=== PATIENT | female | born 1965 | race Caucasian/White ===

== ENCOUNTER → 2018-06-26 08:33 | Outpatient (CLI) | payer MEDICARE, SELFPAY ==
--- NOTE | 2018-06-26 12:17 | PFTCOMP_ITS ---
COMPLETE PULMONARY FUNCTION TEST INTERPRETATION Brief HPI: Patient is a 52 year old female, currently under the care of myself, who presents to [facility] for complete pulmonary function tests secondary to diagnosis of COPD. Respiratory therapist reports good effort and reproducible results. Interpretation: Forced expiration spirometry shows a mild large airways obstructive ventilatory defect with an FEV1 of 87% predicted. There is no significant bronchodilator response by ATS criteria. Spirograms are of good quality and plateau slowly, indicating slowly emptying areas of the lungs. The respiratory flow volume loop shows decreased expiratory flow rates at all lung volumes consistent with airway obstruction. Lung volumes by body plethysmography show an elevated total lung capacity at 7.7 L, 144% predicted. All other lung volumes are increased symmetrically. Diffusion capacity by carbon monoxide is decreased at 53% predicted. The airway resistance is elevated. No previous pulmonary function tests were available for review. Impression: Irreversible mild large airways obstructive ventilatory defect with a symmetric reduction diffusing capacity resulting in air trapping. These findings are consistent with COPD.
== END ==
PROVIDERS: Family Provider Family Medicine; PCP Family Medicine; Visit Provider Internal Medicine Critical Care Medicine
DX: J44.9 Chronic obstructive pulmonary disease, unspecified (principal)
CPT/HCPCS: 94060; 94726; 94729

== ENCOUNTER → 2018-06-30 08:35 | Outpatient (CLI) | payer MEDICARE, SELFPAY ==
[2018-06-30 09:17] VITALS: PULSE 101; PULSE 102; PULSE 84; PULSE 86; PULSE 95; PULSE 96; PULSE 97; PULSE 98; O2SAT 90; O2SAT 91; O2SAT 92; O2SAT 93; O2SAT 96
--- NOTE | 2018-06-30 09:20 | CPS ---
Patient wears 2 lpm O2 at night. Performed testing on room air. The first two minutes we had some inconsistent measures with heart rates that didn't match and a flashing orange light on the pulse ox, which did cause the patient to slow down her pace for the first few minutes. Patient was wearing blue fingernail kyrgyz but once we got her hand level and still while walking; we were able to get consistent readings for the rest of the test with SpO2 always greater than 90%.
--- NOTE | 2018-06-30 12:57 | PCM.PSN.6M ---
PSN 6 Minute Walk Test - 6 Minute Walk Test 6 Minute Walk Test: 6 Minute Walk Test PSN:6-Minute Walk Test Start: 06/30/18 09:17 Freq: Status: Active Protocol: RESP.6MINW Document 06/30/18 09:17 HARPAL (Rec: 06/30/18 09:24 HARPAL [id number]) 6 Minute Walk Test Date Performed 06/30/18 Time Performed 09:05 Height 5 ft 6 in Weight: 188 lb Weight in Pounds 188.[address]: Paul Bower Assistive device used: None Pre-test Oxygen Delivery Method Room Air Pulse Ox (%) 93 Pulse Rate (60-100 beats/min) 84 Dyspnea Crystal Scale (0-10) 0 Exertion Crystal Scale (6-20) 6 1st minute Oxygen Delivery Method Room Air Pulse Ox (%) 92 Pulse Rate (60-100 beats/min) 96 2nd minute Oxygen Delivery Method Room Air Pulse Ox (%) 93 Pulse Rate (60-100 beats/min) 98 3rd minute Oxygen Delivery Method Room Air Pulse Ox (%) 92 Pulse Rate (60-100 beats/min) 95 4th minute Oxygen Delivery Method Room Air Pulse Ox (%) 91 Pulse Rate (60-100 beats/min) 97 5th minute Oxygen Delivery Method Room Air Pulse Ox (%) 90 Pulse Rate (60-100 beats/min) 101 H 6th minute Oxygen Delivery Method Room Air Pulse Ox (%) 92 Pulse Rate (60-100 beats/min) 102 H Post-test Oxygen Delivery Method Room Air Pulse Ox (%) 96 Pulse Rate (60-100 beats/min) 86 Dyspnea Crystal Scale (0-10) 0.5 Exertion Crystal Scale (6-20) 11 Full Laps Walked 14 Partial Lap, Number of Tiles Walked 15 Total Distance Walked (ft) 841 06/30/18 09:20 Cardiopulmonary Services by Dena Lovell Patient wears 2 lpm O2 at night. Performed testing on room air. The first two minutes we had some inconsistent measures with heart rates that didn't match and a flashing orange light on the pulse ox, which did cause the patient to slow down her pace for the first few minutes. Patient was wearing blue fingernail swazi but once we got her hand level and still while walking; we were able to get consistent readings for the rest of the test with SpO2 always greater than 90%. Initialized on 06/30/18 09:20 - END OF NOTE - Interpretation Interpretation: The patient ambulated 841 feet over the course of 6 minutes beginning on room air without assistive devices or breaks. Pretesting oxygen saturation was noted to be 93% on room air. With ambulation, the phil oxygen saturation was 90%. Although there was evidence of impaired walk distance, there was no significant exertional oxygen desaturation. - Recommendations Recommendations: There is no indication for the use of supplemental oxygen at this time.
== END ==
PROVIDERS: Family Provider Family Medicine; PCP Family Medicine; Visit Provider Internal Medicine Critical Care Medicine
DX: J44.9 Chronic obstructive pulmonary disease, unspecified (principal)
CPT/HCPCS: 94618

== ENCOUNTER → 2019-02-02 13:35 | Outpatient (CLI) | payer MEDICARE, SELFPAY ==
[2019-01-12 12:30] VITALS: BMI 32.8
--- NOTE | 2019-02-02 13:38 | CT_ITS ---
STUDY: CT CHEST WITHOUT CONTRAST REASON FOR EXAM: Female, 53 years old. Check for lung mass left side RADIATION DOSAGE (If Supplied By Facility): CTDIvol = ( 12.59 ) mGy, DLP = ( 388.07 ) mGycm TECHNIQUE: Transaxial imaging was performed without the administration of intravenous contrast material. Individualized dose optimization techniques were used for this CT. COMPARISON: None. FINDINGS: There is extreme hyperexpansion and severe centrilobular emphysema. Marked attenuation of the pulmonary parenchyma is seen in the upper lobes. Numerous blebs and bulla are seen throughout the upper lung dietz. Diffuse septal thickening is seen consistent with some fibrosis. An irregular platelike area of soft tissue density is seen running obliquely along the posterior aspect of the left upper lobe, most consistent with scarring and thickening of the major fissure. Nodule or mass is unlikely but since there are no prior studies, suggest follow-up in 6 months. No infiltrates. No specifically suspicious nodules. No effusions. Normal heart and pericardium. Normal mediastinum. Normal hilar regions. Normal unenhanced pulmonary arteries. Normal aorta arch and descending thoracic aorta. There are multi-level degenerative changes of the thoracic spine. There is no demonstrated abnormality of the visualized upper abdomen. CT/Chest without Contrast IMPRESSION: There is severe centrilobular emphysema. No specific evidence for acute chest disease. Probable platelike scarring across the left upper lobe. Follow-up in 6 months recommended. Electronically Signed: Bladimir Grubbs MD at 21:26 EDT , Service support ,
== END ==
PROVIDERS: Family Provider Family Medicine; PCP Family Medicine; Referring Provider Nurse Practitioner Acute Care; Visit Provider Nurse Practitioner Acute Care
DX: R91.8 Other nonspecific abnormal finding of lung field (principal)
CPT/HCPCS: 71250

== ENCOUNTER → 2019-06-18 08:43 | Outpatient (CLI) | payer MEDICARE, SELFPAY ==
[2019-01-12 12:30] VITALS: BMI 32.8
--- NOTE | 2019-06-19 09:17 | PFT ---
INTRODUCTION: The patient is a 53-year-old female that presents for pulmonary function studies secondary to a diagnosis of COPD. Respiratory therapy reports good patient effort. Bronchodilators were used during testing. INTERPRETATION: Forced expiration spirometry demonstrates the presence of a mild obstructive ventilatory defect. There was no significant response to aerosolized bronchodilators. Spirograms are of good quality and do not plateau indicating slow emptying of the lungs. Body plethysmography was performed and revealed an elevated TLC to 125% of predicted, indicative of underlying hyperinflation. Diffusing capacity by single breath CO was reduced at 41% of predicted. When compared to previous pulmonary function studies dated June 2018, there has been a 13% reduction in total lung capacity along with a 21% reduction in diffusing capacity. IMPRESSION: Irreversible mild obstructive ventilatory impairment with associated hyperinflation and significant reduction in diffusing capacity. There has been significant worsening in the patient's DLCO since 2018, as noted above.
== END ==
PROVIDERS: Family Provider Family Medicine; PCP Family Medicine; Referring Provider Nurse Practitioner Acute Care; Visit Provider Nurse Practitioner Acute Care
DX: J44.9 Chronic obstructive pulmonary disease, unspecified (principal)
CPT/HCPCS: 94060; 94726; 94729

== ENCOUNTER → 2019-06-23 08:16 | Outpatient (CLI) | payer MEDICARE, SELFPAY ==
[2019-01-12 12:30] VITALS: BMI 32.8
[2019-06-23 08:51] VITALS: PULSE 87; PULSE 94; PULSE 96; PULSE 97; PULSE 98; O2SAT 87; O2SAT 92; O2SAT 93; O2SAT 96
--- NOTE | 2019-06-23 08:53 | CPS ---
PATIENT WENT HOME AND IS TO CALL [facility] FOR HOME DELIVERY.
--- NOTE | 2019-06-23 12:56 | PCM.PSN.6M ---
PSN 6 Minute Walk Test - 6 Minute Walk Test 6 Minute Walk Test: 6 Minute Walk Test PSN:6-Minute Walk Test Start: 06/23/19 08:50 Freq: Status: Active Protocol: RESP.6MINW Document 06/23/19 08:51 SMB (Rec: 06/23/19 08:55 SMB [id number]) 6 Minute Walk Test Date Performed 06/23/19 Time Performed 08:24 Height 5 ft 6 in Weight: 88.904 kg Weight in Pounds 196.[address]: Vera Lindo Assistive device used: None Pre-test Oxygen Delivery Method Room Air Pulse Ox (%) 92 Pulse Rate (60-100 beats/min) 94 Dyspnea Crystal Scale (0-10) 0 Exertion Crystal Scale (6-20) 11 1st minute Oxygen Delivery Method Room Air Pulse Ox (%) 87 Pulse Rate (60-100 beats/min) 98 2nd minute Oxygen Flow Rate (L/min) (L/min) 2 Oxygen Delivery Method Nasal Cannula Pulse Ox (%) 93 Pulse Rate (60-100 beats/min) 96 3rd minute Oxygen Flow Rate (L/min) (L/min) 2 Oxygen Delivery Method Nasal Cannula Pulse Ox (%) 92 Pulse Rate (60-100 beats/min) 98 4th minute Oxygen Flow Rate (L/min) (L/min) 2 Oxygen Delivery Method Nasal Cannula Pulse Ox (%) 92 Pulse Rate (60-100 beats/min) 97 5th minute Oxygen Flow Rate (L/min) (L/min) 2 Oxygen Delivery Method Nasal Cannula Pulse Ox (%) 93 Pulse Rate (60-100 beats/min) 97 6th minute Oxygen Flow Rate (L/min) (L/min) 2 Oxygen Delivery Method Nasal Cannula Pulse Ox (%) 92 Pulse Rate (60-100 beats/min) 96 Post-test Oxygen Flow Rate (L/min) (L/min) 2 Oxygen Delivery Method Nasal Cannula Pulse Ox (%) 96 Pulse Rate (60-100 beats/min) 87 Dyspnea Crystal Scale (0-10) 0 Exertion Crystal Scale (6-20) 13 Full Laps Walked 15 Partial Lap, Number of Tiles Walked 18 Total Distance Walked (ft) 903 06/23/19 08:53 Cardiopulmonary Services by Caitlyn Campbell PATIENT WENT HOME AND IS TO CALL [facility] FOR HOME DELIVERY. Initialized on 06/23/19 08:53 - END OF NOTE - Interpretation Interpretation: Patient was noted to be 92% on room air. The patient did desaturate to 87% in the first minute was placed on 2 L nasal cannula. The patient then finished ambulation. No significant tachycardia was noted. In total, patient traveled 903 feet over the course of 6 minutes with no assistive devices or breaks. These findings are consistent with a respiratory limitation exercise tolerance. - Recommendations Recommendations: Patient requires no supplemental oxygen at rest, but should be using 2 L nasal cannula oxygen with any exertion.
== END ==
PROVIDERS: Family Provider Nurse Practitioner Family; PCP Nurse Practitioner Family; Referring Provider Nurse Practitioner Acute Care; Visit Provider Nurse Practitioner Acute Care
DX: J44.9 Chronic obstructive pulmonary disease, unspecified (principal)
CPT/HCPCS: 94618

== ENCOUNTER → 2019-08-11 07:16 | Outpatient (CLI) | payer MEDICARE, SELFPAY ==
[2019-06-30 13:20] VITALS: BMI 31.4
--- NOTE | 2019-08-11 07:17 | CT_ITS ---
STUDY: CT CHEST WITHOUT CONTRAST REASON FOR EXAM: Female, 54 years old. Lung nodule follow-up RADIATION DOSAGE (If Supplied By Facility): DLP = ( 463.93 ) mGycm TECHNIQUE: Transaxial imaging was performed without the administration of intravenous contrast material. Coronal and sagittal reformatted images were created. Individualized dose optimization techniques were used for this CT. COMPARISON: CT chest February 02, 2019 FINDINGS: There are no pulmonary infiltrates or pleural effusions. There is a stable right middle lobe 5 mm nodule. There is a stable left lower lobe 4 mm nodule, series 4 image 70. No significant new nodules are present. Stable areas of scarring are present. Severe emphysema is stable. Bibasilar atelectasis is noted. There is no pneumothorax. The heart and pericardium are within normal limits. There is no thoracic lymphadenopathy. There is no evidence of thoracic aortic aneurysm. Images through the upper abdomen demonstrate no significant abnormality. There are no destructive osseous lesions. CT/Chest without Contrast IMPRESSION: Stable nodules measuring up to 5 mm. Severe emphysema with areas of scarring. Electronically Signed: Naren Fraser, at 17:31 EDT Tel , Service support ,
== END ==
PROVIDERS: Family Provider Nurse Practitioner Family; PCP Nurse Practitioner Family; Referring Provider Nurse Practitioner Acute Care; Visit Provider Nurse Practitioner Acute Care
DX: R91.8 Other nonspecific abnormal finding of lung field (principal)
CPT/HCPCS: 71250

== ENCOUNTER → 2020-09-27 07:40 | Outpatient (CLI) | payer MEDICARE, MEDICAID, SELFPAY ==
[2020-09-19 08:29] VITALS: BMI 32.1
--- NOTE | 2020-09-27 07:40 | CT_ITS ---
STUDY: LOW DOSE CT LUNG CANCER SCREENING REASON FOR EXAM: Female, 55 years old. Tobacco use, current smoker 1/2 pack per day x 47 years, 197lbs. Hx COPD, hypertension. RADIATION DOSAGE (If Supplied By Facility): CTDIvol = ( 3.02 ) mGy, DLP = ( 104.20 ) mGycm TECHNIQUE: No contrast was administered. Low dose technique was utilized (average mAS-38 and kVp 120). 1.25 mm axial source images with a slice interval of 1.25-mm were reconstructed in lung windows. 2.5 mm axial source images with a slice interval of 2.5-mm were reconstructed in lung windows. 5.0 mm axial source images with a slice interval of 5.0-mm were reconstructed in soft tissue windows. Nodule measured using lung windows on PACS and/or independent workstation with automated measurement of minimum and maximum diameter. Nodule measurement reported as average diameter rounded to the nearest whole number. Growth is defined as an increase ins size of greater than 1.5 mm. COMPARISON: Comparison is made with prior study dated 08/11/2019. NODULES: No suspicious nodules are seen. Emphysema: Hyperinflation. Diffuse emphysematous changes with centrilobular emphysema worse in the upper lobes. Stable area of the irregular linear and nodular scarring in the left upper lobe. Stable 5 mm nodule in the stable 4 mm nodule in the posterior medial aspect of the left lower lobe as seen on axial image #153. Endobronchial lesion: None Aorta: Atherosclerotic calcific plaque at the level of the aortic arch. Coronary arteries: Coronary artery calcification. Mediastinal nodes: Small benign-appearing mediastinal lymph nodes. Other chest and abdominal findings: Degenerative changes of the thoracic vertebra. CT/Low Dose CT Lung Screening IMPRESSION: Lung-RADS category 2 - Continue annual screening with LDCT in 12 months. IMPORTANT NOTES FOR USE: ACR Lung-RADS Version 1.0 Assessment Categories Release Date: March 15, 2014 Category: Coded 0-4 bases on nodule(s) with highest degree of suspicion. Negative screen is defined as categories 1 and 2; a positive screen is defined as categories 3 and 4. Category 3 and 4A nodules that are unchanged on interval CT should be coded as category 2, and individuals returned to screening in 12 months. Category 4X: Category 3 or 4 nodules with additional imaging findings that increase the suspicion of lung cancer, such as spiculation, GGN that doubles in size in 1 year, enlarged lymph notes, etc. Category Modifiers: S (significant finding unrelated to lung cancer) and C (prior history of treated lung cancer) may be added to the 0-4 Lung-RADS Electronically Signed: Kevin Silva, at 8:57 EST , Service support ,
== END ==
PROVIDERS: PCP Nurse Practitioner Family; Referring Provider Nurse Practitioner Acute Care; Visit Provider Nurse Practitioner Acute Care
DX: Z12.2 Encounter for screening for malignant neoplasm of respiratory organs (principal); F17.210 Nicotine dependence, cigarettes, uncomplicated
CPT/HCPCS: G0297

== ENCOUNTER → 2021-07-27 08:11 | Outpatient (CLI) | payer MEDICARE, MEDICAID, SELFPAY ==
--- NOTE | 2021-07-27 08:16 | CT_ITS ---
STUDY: CT MAXILLOFACIAL SINUSES REASON FOR EXAM: Female, 56 years old. FACIAL PAIN RADIATION DOSAGE (If Supplied By Facility): CTDIvol = ( 28.14 ) mGy, DLP = ( 679.36 ) mGycm TECHNIQUE: The patient was scanned in a multi detector CT scanner. High resolution axial imaging was performed without the administration of intravenous contrast material. Sagittal and coronal images were reconstructed. Individualized dose optimization techniques were used for this CT. COMPARISON: None. FINDINGS: FRONTAL SINUSES: Normal aeration, without mucosal inflammatory disease. ETHMOIDAL SINUSES: Normal aeration, without mucosal inflammatory disease. MAXILLARY SINUSES: Normal aeration, without mucosal inflammatory disease. SPHENOIDAL SINUSES: Normal aeration, without mucosal inflammatory disease. There is patency of the bilateral maxillary infundibuli with normal uncinate processes, ethmoid bullae, and hiatus semilunaris. Normal bilateral middle turbinates. Normal bilateral inferior turbinates. There is a right sided nasal septal deviation, but without a nasal septal spur. There is patency of the bilateral nasal airways. The visualized osseous structures are normal. The visualized bilateral orbital contents are normal. CT/Sinus/Facial Bone IMPRESSION: Normal CT examination of the maxillofacial sinuses. Electronically Signed: Kevin Silva MD at 12:00 EDT , Service support ,
== END ==
PROVIDERS: PCP Nurse Practitioner Family; Referring Provider Otolaryngology; Visit Provider Otolaryngology
DX: R51.9 Headache, unspecified (principal); J32.9 Chronic sinusitis, unspecified
CPT/HCPCS: 70486

== ENCOUNTER → 2021-09-27 07:45 | Outpatient (CLI) | payer MEDICARE, MEDICAID, SELFPAY ==
--- NOTE | 2021-09-27 07:46 | CT_ITS ---
STUDY: LOW DOSE CT LUNG CANCER SCREENING REASON FOR EXAM: Female, 56 years old. Current smoker and gt; 30 pack years RADIATION DOSAGE (If Supplied By Facility): CTDIvol = ( 2.01 ) mGy, DLP = ( 71.98 ) mGycm TECHNIQUE: No contrast was administered. Low dose technique was utilized (average mAS-38 and kVp 120). 1.25 mm axial source images with a slice interval of 1.25-mm were reconstructed in lung windows. 2.5 mm axial source images with a slice interval of 2.5-mm were reconstructed in lung windows. 5.0 mm axial source images with a slice interval of 5.0-mm were reconstructed in soft tissue windows. Nodule measured using lung windows on PACS and/or independent workstation with automated measurement of minimum and maximum diameter. Nodule measurement reported as average diameter rounded to the nearest whole number. Growth is defined as an increase ins size of greater than 1.5 mm. COMPARISON: Comparison is made with prior examination dated 09/27/2020. NODULES: Stable 4 mm and 5 mm noncalcified nodules in the posterior medial aspect of the left lower lobe. Emphysema: Hyperinflation. Diffuse emphysematous changes with centrilobular emphysematous changes worse in the upper lobes. Stable biapical scarring. Stable reticular nodular scarring in the left upper lobe. Stable 5 mm nodule as well as stable 4 mm nodule in the posterior medial aspect of the left lower lobe. Endobronchial lesion: None Aorta: Atherosclerotic plaque formation. Coronary arteries: Coronary artery calcification. Heart: Unremarkable Pulmonary artery: Unremarkable Mediastinal nodes: Small benign-appearing mediastinal lymph nodes. Other chest and abdominal findings: CT/Low Dose CT Lung Screening IMPRESSION: Lung-RADS category 2 - Continue annual screening with LDCT in 12 months. IMPORTANT NOTES FOR USE: ACR Lung-RADS Version 1.1 Assessment Categories Release Date: 2018 Category: Coded 0-4 bases on nodule(s) with highest degree of suspicion. Negative screen is defined as categories 1 and 2; a positive screen is defined as categories 3 and 4. Category 3 and 4A nodules that are unchanged on interval CT should be coded as category 2, and individuals returned to screening in 12 months. Category 4X: Category 3 or 4 nodules with additional imaging findings that increase the suspicion of lung cancer, such as spiculation, GGN that doubles in size in 1 year, enlarged lymph notes, etc. Category Modifiers: S (significant finding unrelated to lung cancer) Electronically Signed: Kevin Silva MD at 9:42 EST , Service support ,
== END ==
PROVIDERS: PCP Nurse Practitioner Family; Referring Provider Nurse Practitioner Acute Care; Visit Provider Nurse Practitioner Acute Care
DX: Z12.2 Encounter for screening for malignant neoplasm of respiratory organs (principal); F17.210 Nicotine dependence, cigarettes, uncomplicated
CPT/HCPCS: 71271

== ENCOUNTER → 2021-11-15 06:40 | Outpatient (CLI) | payer MEDICARE, MEDICAID, SELFPAY ==
--- NOTE | 2021-11-16 10:06 | PFT ---
INTRODUCTION: The patient is a 56-year-old female that presents for pulmonary function studies secondary to a diagnosis of COPD. Respiratory therapy reported good patient effort. Bronchodilators were used during testing. INTERPRETATION: Forced expiration spirometry demonstrates the presence of a mild large airways obstructive ventilatory defect. There was no significant response to aerosolized bronchodilators. Spirograms are of good quality but do not plateau indicating slow emptying of the lungs. Body plethysmography was performed and revealed lung volumes to be within normal limits. Diffusing capacity by single breath CO was significantly reduced at 44% of predicted. IMPRESSION: Irreversible mild large airways obstructive ventilatory defect with preserved lung volumes and disproportionate reduction in diffusing capacity.
== END ==
PROVIDERS: PCP Nurse Practitioner Family; Referring Provider Nurse Practitioner Acute Care; Visit Provider Nurse Practitioner Acute Care
DX: J44.9 Chronic obstructive pulmonary disease, unspecified (principal)
CPT/HCPCS: 94060; 94726; 94729

== ENCOUNTER → 2022-10-01 | Outpatient (CLI) | payer BC, MEDICARE, SELFPAY ==
--- NOTE | 2022-10-01 07:38 | CT_ITS ---
STUDY: LOW DOSE CT LUNG CANCER SCREENING REASON FOR EXAM: Female, 57 years old. Current smoker and gt; 30 pack years. COPD. RADIATION DOSAGE (If Supplied By Facility): CTDIvol = ( 3.18 ) mGy, DLP = ( 104.83 ) mGycm TECHNIQUE: No contrast was administered. Low dose technique was utilized (average mAS-38 and kVp 120). 1.25 mm axial source images with a slice interval of 1.25-mm were reconstructed in lung windows. 2.5 mm axial source images with a slice interval of 2.5-mm were reconstructed in lung windows. 5.0 mm axial source images with a slice interval of 5.0-mm were reconstructed in soft tissue windows. COMPARISON: Comparison is made with prior study 09/27/2021. NODULES: Stable 4 mm and 5 mm noncalcified nodule in the posteromedial aspect of the left lower lobe. Emphysema: Hyperinflation. Diffuse emphysematous changes worse in the upper lobes with multiple bullous formation. Stable scarring in the left upper lobe. Stable 4.4 mm noncalcified nodule in the anterior aspect of the right upper lobe as seen on axial image #151. Endobronchial lesion: None Aorta: Atherosclerotic plaque formation. CORONARY ARTERIES: Coronary artery calcification is seen. Heart: Unremarkable. Pulmonary artery: Unremarkable. Mediastinal nodes: Small benign appearing mediastinal lymph nodes. Other chest and abdominal findings: CT/Low Dose CT Lung Screening IMPRESSION: Lung-RADS category 2 - Continue annual screening with LDCT in 12 months. IMPORTANT NOTES FOR USE: ACR Lung-RADS Version 1.1 Assessment Categories Release Date: 2018 Category: Coded 0-4 bases on nodule(s) with highest degree of suspicion. Negative screen is defined as categories 1 and 2; a positive screen is defined as categories 3 and 4. Category 3 and 4A nodules that are unchanged on interval CT should be coded as category 2, and individuals returned to screening in 12 months. Category 4X: Category 3 or 4 nodules with additional imaging findings that increase the suspicion of lung cancer, such as spiculation, GGN that doubles in size in 1 year, enlarged lymph notes, etc. Category Modifiers: S (significant finding unrelated to lung cancer) Electronically Signed: Kevin Silva MD at 12:34 EST ,
== END | disposition home or self-care (01) ==
LOC: CT 07:37
PROVIDERS: PCP Nurse Practitioner Family; Referring Provider Nurse Practitioner Acute Care; Visit Provider Nurse Practitioner Acute Care
DX: Z12.2 Encounter for screening for malignant neoplasm of respiratory organs (principal); F17.210 Nicotine dependence, cigarettes, uncomplicated
CPT/HCPCS: 71271

== ENCOUNTER → 2022-10-18 | Outpatient (CLI) | payer BC, MEDICARE, SELFPAY ==
[2022-10-18 12:34] VITALS: PULSE 100; PULSE 103; PULSE 106; PULSE 111; PULSE 113; PULSE 90; PULSE 96; O2SAT 85; O2SAT 89; O2SAT 90; O2SAT 91; O2SAT 92; O2SAT 96
--- NOTE | 2022-10-18 12:36 | CPS ---
Patient states that she wears 2 lpm O2 at home with ambulation. She has a concentrator at home and a portable tank that she did not bring in with her for testing. She wears 2 lpm pulse dose with her portable tank. Patient began testing on room air, SpO2 92%. At the second minute after walking less than 300 ft, SpO2 85%. Had patient rest and placed her on 2lpm O2, SpO2 93%. Patient walked the rest of the test on 2 lpm O2.
--- NOTE | 2022-10-19 11:02 | PCM.PSN.6M ---
PSN 6 Minute Walk Test 6 Minute Walk Test 6 Minute Walk Test: 6 Minute Walk Test PSN:6-Minute Walk Test Start: 10/18/22 12:34 Freq: Status: Active Protocol: RESP.6MINW Document 10/18/22 12:34 HARPAL (Rec: 10/18/22 12:40 HARPAL [id number]) 6 Minute Walk Test Date Performed 10/18/22 Time Performed 12:30 Height 5 ft 6 in Weight: 211 lb Weight in Pounds 211.[address]: Paul Bower Assistive device used: None Pre-test Oxygen Delivery Method Room Air Pulse Ox (%) 92 Pulse Rate (60-100 beats/min) 90 Dyspnea Crystal Scale (0-10) 0 Exertion Crystal Scale (6-20) 6 1st minute Oxygen Delivery Method Room Air Pulse Ox (%) 91 Pulse Rate (60-100 beats/min) 100 2nd minute Oxygen Delivery Method Room Air Pulse Ox (%) 85 Pulse Rate (60-100 beats/min) 103 H Dyspnea Crystal Scale (0-10) 3 3rd minute Oxygen Flow Rate (L/min) (L/min) 2 Oxygen Delivery Method Nasal Cannula Pulse Ox (%) 92 Pulse Rate (60-100 beats/min) 100 4th minute Oxygen Flow Rate (L/min) (L/min) 2 Oxygen Delivery Method Nasal Cannula Pulse Ox (%) 91 Pulse Rate (60-100 beats/min) 106 H 5th minute Oxygen Flow Rate (L/min) (L/min) 2 Oxygen Delivery Method Nasal Cannula Pulse Ox (%) 89 Pulse Rate (60-100 beats/min) 111 H 6th minute Oxygen Flow Rate (L/min) (L/min) 2 Oxygen Delivery Method Nasal Cannula Pulse Ox (%) 90 Pulse Rate (60-100 beats/min) 113 H Dyspnea Crystal Scale (0-10) 3 Exertion Crystal Scale (6-20) 14 Post-test Oxygen Flow Rate (L/min) (L/min) 2 Oxygen Delivery Method Nasal Cannula Pulse Ox (%) 96 Pulse Rate (60-100 beats/min) 96 Full Laps Walked 15 Partial Lap, Number of Tiles Walked 10 Total Distance Walked (ft) 895 10/18/22 12:36 Cardiopulmonary Services by Dena Lovell Patient states that she wears 2 lpm O2 at home with ambulation. She has a concentrator at home and a portable tank that she did not bring in with her for testing. She wears 2 lpm pulse dose with her portable tank. Patient began testing on room air, SpO2 92%. At the second minute after walking less than 300 ft, SpO2 85%. Had patient rest and placed her on 2lpm O2, SpO2 93%. Patient walked the rest of the test on 2 lpm O2. Initialized on 10/18/22 12:36 - END OF NOTE Interpretation Interpretation: The patient ambulated 895 feet over the course of 6 minutes beginning on room air without assistive devices. Pretesting oxygen saturation was noted to be 92% on room air. With ambulation, the phil oxygen saturation was 85%. 2 L/min of supplemental oxygen was applied, and the patient was able to complete the remainder of the test while maintaining appropriate saturations. Recommendations Recommendations: 2 L/min of supplemental oxygen should be utilized with exertion.
== END | disposition home or self-care (01) ==
LOC: PSN 12:04
PROVIDERS: PCP Nurse Practitioner Family; Visit Provider Internal Medicine Critical Care Medicine
DX: J96.11 Chronic respiratory failure with hypoxia (principal)
CPT/HCPCS: 94618

== ENCOUNTER → 2022-10-19 | Outpatient (CLI) | payer BC, MEDICARE, SELFPAY ==
--- NOTE | 2022-10-20 07:57 | PFT ---
INTRODUCTION: The patient is a 57-year-old female that presents for pulmonary function studies secondary to a diagnosis of COPD. Respiratory therapy reported good patient effort. Bronchodilators were used during testing. INTERPRETATION: Forced expiration spirometry demonstrates the presence of a moderate large airways obstructive ventilatory defect. There was no significant response to aerosolized bronchodilators. Spirograms are of good quality but do not plateau indicating slow emptying of the lungs. Body plethysmography was performed and demonstrated an elevated TLC and RV, indicative of underlying hyperinflation and air trapping. Diffusing capacity by single breath CO is reduced at 50% of predicted. IMPRESSION: Irreversible moderate large airways obstructive ventilatory defect with associated hyperinflation, air trapping and symmetric reduction in diffusing capacity.
== END | disposition home or self-care (01) ==
LOC: PSN 08:12
PROVIDERS: PCP Nurse Practitioner Family; Referring Provider Internal Medicine Critical Care Medicine; Visit Provider Internal Medicine Critical Care Medicine
DX: J96.11 Chronic respiratory failure with hypoxia (principal)
CPT/HCPCS: 94060; 94726; 94729

== ENCOUNTER 2023-06-27 15:23 | Inpatient (IN) | payer MEDICARE, MEDICAID, SELFPAY ==
[2023-06-27] VITALS (9 sets, daily range): BP systolic 107–132; BP diastolic 59–90; PULSE 59–88; RESP 12–20; TEMP 36.6–36.8; O2SAT 85–92; BMI 33.8
--- NOTE | 2023-06-27 15:29 | HP.PCM.HOS_ITS ---
HPI - General General Date of Admission: 06/27/23 HPI Narrative ARIES SIMON, is a 57 F who presents to the hospital from an outside hospital secondary to increased shortness of breath. She does have chronic hypoxia with a baseline oxygen usage of 2 L. Last night she started getting more short of breath with activity and this morning when it did not get better she presented to the outside hospital. She did have a significant leukocytosis and she is afebrile and denies any recent illness. She has noticed a change in her sputum from clear to mucousy yellow. CT of the chest was done secondary to an elevated D-dimer and there is no evidence of a PE but it did show a left lower lobe lung collapse and she was transferred to this hospital for possible bronchoscopy. [facility] Medical History (Updated 06/27/23 @ 15:[address] Daniel Claire MD) Abnormal CT scan, chest Acute bronchitis Aortic valve regurgitation Back pain Brachial (cervical) neuritis Bronchospasm Chronic headaches Chronic obstructive lung disease Chronic pain Confusional state Cough DDD (degenerative disc disease) Dyslipidemia Dyspnea Dysuria Essential hypertension Frontal lobe deficit GERD (gastroesophageal reflux disease) Heavy tobacco smoker Hyperlipidemia Hypothyroidism Lumbar radiculopathy On home oxygen therapy Other group home (current) drug therapy Pneumothorax of left lung after biopsy Smoker Spinal stenosis in cervical region Suprapubic pain Thyroid nodule Urinary incontinence Home Medications hydrocodone 7.5 mg-acetaminophen 325 mg tablet ([place]) 1 tab PO Q6H PRN pain 06/19/18 [History Last Taken 06/27/23] levothyroxine 75 mcg tablet (Synthroid) See Rx Instructions PO QDAY 06/19/18 [History Last Taken Unknown] lovastatin 40 mg tablet 80 mg PO QHS 06/19/18 [History Last Taken Unknown] polyethylene glycol 3350 17 gram/dose oral powder (Miralax) 17 g PO DAILY PRN constipation 06/19/18 [History Last Taken Unknown] ranitidine HCl 150 mg tablet (Zantac) 150 mg PO QDAY 06/19/18 [History Last Taken Unknown] tizanidine 4 mg capsule (Zanaflex) 4 mg PO TID PRN muscle spasticity 06/19/18 [History Last Taken Unknown] pramipexole 1 mg tablet 1 mg PO BID 09/19/20 [History Last Taken 06/27/23] albuterol sulfate 90 mcg/actuation aerosol inhaler (Proventil HFA) 2 puff inhalation Q4H PRN shortness of breath or wheezing #18 grams 11/20/21 [Rx Last Taken Unknown] bupropion HCl 150 mg tablet,12 hr sustained-release (Wellbutrin SR) 150 mg PO BID 05/14/22 [History Last Taken Unknown] ipratropium 0.5 mg-albuterol 3 mg (2.5 mg base)/3 mL nebulization soln 3 ml inhalation Q4H PRN PRN SOB &/OR WHEEZING #180 mL 12/18/22 [Rx Last Taken Unknown] fluticasone fur. 200 mcg-umeclid 62.5 mcg-vilant 25 mcg inhalat.powder (Trelegy Ellipta) 1 inh inhalation DAILY #60 ea 01/15/23 [Rx Last Taken Unknown] docusate sodium 100 mg capsule 200 mg PO DAILY 06/27/23 [History Last Taken 06/26/23] furosemide 20 mg tablet 20 mg PO DAILY 06/27/23 [History Last Taken 06/27/23] gabapentin 400 mg capsule 400 mg PO TID 06/27/23 [History Last Taken 06/27/23] levothyroxine 100 mcg tablet 100 mcg PO DAILY 06/27/23 [History Last Taken 06/27/23] montelukast 10 mg tablet 10 mg PO QHS 06/27/23 [History Last Taken Unknown] omeprazole 40 mg capsule,delayed release 40 mg PO DAILY 06/27/23 [History Last Taken 06/27/23] potassium chloride 10 mEq tablet,extended release 10 meq PO DAILY 06/27/23 [History Last Taken Unknown] risankizumab-rzaa 150 mg/mL subcutaneous pen injector (Skyrizi) 150 mg subcut .COMPLEX 06/27/23 [History Last Taken Unknown] Allergy/AdvReac Type Severity Reaction Status Date / Time ciprofloxacin Allergy Mild severe Verified 06/27/23 14:29 upset GI clarithromycin Allergy Mild severe Verified 06/27/23 14:29 upset GI fenofibrate Allergy Mild Verified 06/27/23 14:29 nabumetone Allergy Mild Verified 06/27/23 14:29 oxybutynin Allergy Mild Verified 06/27/23 14:29 Sulfa (Sulfonamide Allergy Mild Verified 06/27/23 14:29 Antibiotics) fesoterodine [From [facility]] AdvReac Mild Other Verified 06/27/23 14:29 Family History (Reviewed 11/21/22 @ 08:47 by Vera Lindo POWER SEWING MACHINE OPERATOR, POWER SEWING MACHINE OPERATOR-C) Mother Cancer Lung Heart disease CVA (cerebral vascular accident) Father COPD (chronic obstructive pulmonary disease) Brother Diabetes Kidney disease Surgical History (Reviewed 11/21/22 @ 08:47 by Vera Lindo POWER SEWING MACHINE OPERATOR, POWER SEWING MACHINE OPERATOR-C) History of hysterectomy History of lung biopsy Social History Smoking Status: Current every day smoker tobacco type: cigarettes Tobacco: How many years used: 45 second hand exposure: Yes alcohol intake: never substance use type: does not use caffeine: Yes Type: coffee what type of physical activity do you participate in: other frequency: daily ROS Constitutional Constitutional: Denies chills, fatigue, fever(s) or malaise Eyes Eyes: Denies blurry vision ENT HEENT: Denies headache(s) or nasal discharge Cardiovascular Cardiovascular: Denies chest pain, dyspnea on exertion or syncope Respiratory/Chest Respiratory/Chest: Reports cough, shortness of breath at rest and shortness of breath with exertion Gastrointestinal Gastrointestinal: Denies constipation, diarrhea, nausea or vomiting Genitourinary Genitourinary: Denies dysuria Neurologic Neurologic: Denies focal weakness, numbness or tremor(s) Psychiatric Psychiatric: Denies anxiety or depression Vital Signs Vital Signs Vital Signs: 06/27/23 14:30 Temperature 98.3 F Temperature Source Oral Pulse Rate 69 Respiratory Rate 16 Blood Pressure 132/90 H Blood Pressure Mean 104 Blood Pressure Source Monitor Blood Pressure Position Semi-Fowlers Blood Pressure Location Left Arm Pulse Ox 91 Oxygen Delivery Method Nasal Cannula Oxygen Flow Rate (L/min) 6 Weight Weight: 209 lb 14.081 oz Body Mass Index (BMI) 33.8 Physical Exam Narrative General: Alert, Oriented x3, Cooperative, moderate respiratory distress HEENT: Atraumatic, PERRLA, EOMI, Normocephalic Oral: Moist Mucosa Neck: Supple, No JVD Lungs: Diminished, poor air movement, No rhonchi, scattered wheeze on expiration, No rales, slight tachypnea Cardiovascular: Regular rate, Regular Rhythm, Normal S1, Normal S2, No murmurs Abdomen: Soft, Non Tender, Non-Distended, No Hepato-splenomegaly Extremities: No edema, Capillary Refill Less than 3 Seconds Skin: No rashes, No breakdown Musculoskeletal: No Tenderness to Palpation of Joints or Extremities Neurological: Cranial nerves II-XII grossly intact, Motor Exam 5/5 strength throughout, Sensory exam intact to light touch and pain Psych/Mental Status: Normal Affect, Appropriate Assessment & Plan Assessment/Plan (1) Acute on chronic respiratory failure with hypoxia: PLAN: Plan 1. Acute on chronic respiratory failure with hypoxia secondary to left lower lobe collapse/tobacco abuse/COPD ? Unclear as to the etiology could be mucous plugging versus pneumonia versus bronchogenic cancer as she does have a 11-dzio-bjbd smoking history ? She denies the need for nicotine replacement, discussed cessation ? Will place her on steroids and obtain a sputum sample ? Continue with breathing treatments ? Will consult pulmonology for bronchoscopy ? Continue with antibiotics empirically 2. HTN/HLD ? Blood pressures are stable ? Continue with statin and Lasix 3. Hypothyroidism ? Stable ? Continue with Synthroid 4. GERD ? Stable ? Continue with PPI DVT: Lovenox 75 minutes was spent on direct patient care, including documentation as well as chart review and collaboration with colleagues Charges/Coding Visit Charges Inpatient E&M: 28363 Init Hosp L3
[2023-06-27] MEDS: Acetaminophen 325 MG Tablet 650 MG PO (18:20)
[2023-06-27] MEDS: Ipratropium/Albuterol Sulfate 3 ML AMPUL.NEB INHALATION ×2 (19:18→23:06)
[2023-06-27] MEDS: HYDROcodone Bitartrate/Apap 5/325 Tablet PO (20:37)
[2023-06-27] MEDS: Methylprednisolone Sod Succ 40 MG/ML VIAL IV (20:41)
[2023-06-27] MEDS: Montelukast 10 MG Tablet PO (20:41)
[2023-06-27] MEDS: Atorvastatin Calcium 20 MG Tablet PO (20:41)
[2023-06-27] MEDS: Pramipexole Di-HCl 1 MG Tablet PO (20:41)
[2023-06-27] MEDS: Gabapentin 400 MG Capsule PO (20:41)
[2023-06-27] MEDS: 0.9% Saline Lock 10 ML Syringe IV (20:42)
[2023-06-28] VITALS (22 sets, daily range): BP systolic 95–135; BP diastolic 63–78; PULSE 59–98; RESP 12–22; TEMP 35.7–36.7; O2SAT 87–95
--- NOTE | 2023-06-28 | FLU_PTH ---
PATIENT: ARIES SIMON LOC: [facility] U#:[id number] AGE/SX: 57/F ROOM: [facility] RE06/27/[address]: Dr. Maritza Carcamo DO : 1965 BED: 1 DIS: 06/30/2023 SPEC #: [id number] RECD: 06/28/23 09:45 STATUS: SOULeighton REQ #: [id number] NANDO: 06/28/23 00:[address]: Jose F Chang DEPT: CYTOLOGY RECD BY: Melody Armstrong ENTERED: 06/28/23 11:01 SP TYPE: Fluid OTHR DR: MD Dr. Jose F Downs DO Dr. Kathryn Lee, DO Dr. Lee Ann Baggott, MD Dr. Nicholas F Kotsonis, MD Dr. Tanmay Panchabhai, MD Christina Muller, RECRUITING ASSOCIATE-C Tabitha Sandoval, RECRUITING ASSOCIATE-C Tissues: Bronchus of left lower lobe Procedures: Special Stain Group II Special Stain Group I Surgery Specimen Level IV AFB Stain (control) GMS Stain (control) Cytospin Fluid Comments: @ Ordering doctor for SSII edited from to @ by IRENE at 06/28/23 1524 @ Ordering doctor for SUIV edited from to [email or web address] Ohara by IRENE at 06/28/23 1524 @ Ordering doctor for CYSPIN edited from to @ by IRENE at 06/28/23 1524 @ Submitting doctor edited from to [email or web address] Ohara by IRENE at 06/28/23 1524 HEADER OPERATION: Bronchoscopy with bronchioalveolar lavage PRE-OP DIAGNOSIS: LLL atelectasis TISSUE SUBMITTED: Bronchioalveolar lavage, left lower lobe of lung DIAGNOSIS CYTOLOGY Bronchioalveolar lavage, left lower lobe of lung (cytospin and cell block): Negative for malignant cells. Acute inflammation. Negative for acid-fast bacilli and fungal organisms. See comment. AM:alma 07/01/2023 COMMENT AFB and GMS stains with matched controls were used in the evaluation of this case. CYTOLOGY STUDY Slides are reviewed. CYTOLOGY GROSS Received is 10 ml of cloudy opaque mucoid fluid labeled with the patient's name and and designated per the requisition as BAL LLL. Submitted for cytology preparation including cell block. / alma 06/28/2023 TC:2 CPT: 41591, 35006, 88318 x2
[2023-06-28] MEDS: Gabapentin 400 MG Capsule PO ×3 (05:01→21:39)
[2023-06-28] MEDS: Levothyroxine 100 MCG Tablet PO (05:01)
[2023-06-28] MEDS: Methylprednisolone Sod Succ 40 MG/ML VIAL IV ×3 (05:05→21:39)
[2023-06-28] MEDS: HYDROcodone Bitartrate/Apap 5/325 Tablet PO ×3 (05:07→17:30)
[2023-06-28 06:15] LABS: Absolute Lymphocyte Count 1.44 X10^3/uL (0.83-4.51); Absolute Neutrophil Count 12.4 X10^3/uL (2.0-7.7); Basophil# 0.02 X10^3/uL; Basophil% 0.1 % (0-1); Eosinophil# 0.01 X10^3/uL; Eosinophils% 0.1 % (0-5); Hemoglobin 15.1 g/dL (12.0-15.0); Lymphocyte # 1.44 X10^3/ul (0.83-4.51); Lymphocyte % 9.9 % (19-41); Mean Corp Hgb Conc 30.8 g/dL (32-36); Mean Corpuscular Volume 97.2 fL (81-99); Mean Platelet Vol. 11.8 fl (6.2-12.0); Monocyte# 0.56 X10^3/uL; Monocyte% 3.9 % (0-10); NRBC Flagged by Analyzer 0 % (0-5); Neutrophil # 12.39 X10^3/uL (2.7-7.7); Neutrophil % 85.4 % (47-70); Platelet Count 230 K/mm3 (150-450); RBC Distribution Width SD 60.8 fl (35.1-43.9); Red Blood Count 5.04 M/mm3 (4.2-5.4); White Blood Count 14.5 K/mm3 (4.4-11.0)
--- NOTE | 2023-06-28 06:30 | RAD_ITS ---
STUDY: X-RAY CHEST REASON FOR EXAM: Female, 57 years old patient with respiratory failure. TECHNIQUE: Single AP portable view of the chest. COMPARISON: June 27, 2023. FINDINGS: Cardiac monitoring leads are present. The lungs are expanded with prominence of the bronchovascular markings. There is left basilar airspace consolidation and atelectasis. There is perihilar interstitial thickening. There is no demonstrated pleural abnormality. Normal size heart. Normal mediastinum and yuniel. Normal visualized pulmonary arteries. Normal visualized aortic arch and descending thoracic aorta. There are diffuse degenerative changes of the visualized thoracic spine. Normal visualized ribs, clavicles, and shoulders. Patient has had previous cervical spine surgery. There is no demonstrated abnormality of the visualized soft tissue structures of the upper abdomen. RAD/Chest 1 View (Portable) IMPRESSION: Left basilar airspace consolidation and atelectasis suggests pneumonia. Electronically Signed: Seble Angulo MD at 6:56 EDT ,
[2023-06-28 06:37] LABS: Anion Gap 5 (5-15); BUN 11 mg/dL (7-18); BUN/Creat Ratio 13.9 RATIO (10-20); Calcium,Total 9.4 mg/dL (8.5-10.1); Chloride 109 mmol/L (98-107); Creatinine, Serum 0.79 mg/dL (0.55-1.02); EST Glomerular Filtration Rate 79 mL/min (>60); Est Glom Filt Rate - Afr Amer 95 mL/min (>60); Estimated Creatinine Clearance 71.78 ml/min; Glucose 120 mg/dL (74-106); Potassium 3.9 mmol/L (3.5-5.1); Sodium Level 140 mmol/L (136-145)
--- NOTE | 2023-06-28 06:52 | EX.PCM.CONCC ---
Assessment & Plan Assessment/Plan (1) Acute on chronic respiratory failure with hypoxia: (2) Moderate COPD (chronic obstructive pulmonary disease): PLAN: Plan RECOMMENDATIONS: 1. Wean supplemental oxygen to maintain saturations at or above 90%. 2. Continue empiric antimicrobials. 3. Check MRSA screen. Check strep and urine Legionella antigens. 4. Continue bronchodilators and steroids as ordered. 5. Continue aggressive bronchopulmonary hygiene. 6. Proceed with bronchoscopy this morning as scheduled. 7. Check coagulation profile. IMPRESSIONS: 1. Acute on chronic hypoxemic respiratory failure Outside hospital imaging demonstrated left lower lobe atelectasis of unclear etiology. The differential would certainly include mucous plugging versus endobronchial lesion. The patient has significant bilateral emphysematous changes along with moderate obstructive lung disease based upon PFTs. Therefore, I agree with continuing antibiotics, bronchodilators and steroids. Continue aggressive bronchopulmonary hygiene, in the interim. Will obtain follow-up chest x-ray this morning. Continue to wean supplemental oxygen to maintain saturations at or above 90%. There are tentative plans to proceed with airway evaluation via bronchoscopy this morning at 8:45 AM. Risks and benefits of the proposed procedure were discussed with the patient. She is in agreement to proceed. 2. History of chronic tobacco dependency/obstructive sleep apnea with PAP noncompliance Continue supportive measures as noted above. Tobacco cessation counseling was provided. Recommend empiric BiPAP therapy with naps and nightly. 3. History of hypertension/hyperlipidemia/hypothyroidism/GERD Complicates care, management, recovery and prognosis. Continue home medications as indicated. This note was generated with i[employer] dictation software. It may contain incorrect words, spelling, and punctuation that were not noted in checking the note before signing. HPI Consult Data Date of Consult: 06/28/23 HPI Narrative Reason for Consultation: Acute on chronic respiratory failure HPI Narrative: The patient is a 57-year-old female, with a history as outlined below, who initially presented as a transfer of care on June 27 from [facility] with shortness of breath and chest discomfort, which began yesterday. The patient does have a baseline history of moderate obstructive lung disease and chronic hypoxemic respiratory failure with a 2 L/min requirement. She is currently followed in the pulmonary medicine clinic and is maintained on a triple therapy inhaler regimen on an outpatient basis. The patient has still been smoking cigarettes, but reported it is her intention to quit completely now. As part of her outside hospital workup, a CT chest with contrast was obtained. There was no evidence for pulmonary embolism. Significant bilateral emphysematous changes were noted along with left lower lobe atelectasis of unclear etiology. Upon admission here at [facility], the patient was initiated on antibiotics, bronchodilators and steroids. She was maintained on BiPAP therapy overnight and subsequently transition to nasal cannula oxygen this morning. The patient did report that she has had a cough which is now productive of yellow sputum. She is otherwise clinically stable from a respiratory perspective. The patient reported compliance with her prescribed outpatient inhaler regimen. She does report interval improvement in her shortness of breath and chest discomfort this morning. [facility] Medical History (Updated 06/27/23 @ 15:[address] Daniel Claire MD) Abnormal CT scan, chest Acute bronchitis Aortic valve regurgitation Back pain Brachial (cervical) neuritis Bronchospasm Chronic headaches Chronic obstructive lung disease Chronic pain Confusional state Cough DDD (degenerative disc disease) Dyslipidemia Dyspnea Dysuria Essential hypertension Frontal lobe deficit GERD (gastroesophageal reflux disease) Heavy tobacco smoker Hyperlipidemia Hypothyroidism Lumbar radiculopathy On home oxygen therapy Other detention (current) drug therapy Pneumothorax of left lung after biopsy Smoker Spinal stenosis in cervical region Suprapubic pain Thyroid nodule Urinary incontinence Home Medications hydrocodone 7.5 mg-acetaminophen 325 mg tablet ([place]) 1 tab PO Q6H PRN pain 06/19/18 [History Last Taken 06/27/23] levothyroxine 75 mcg tablet (Synthroid) See Rx Instructions PO QDAY 06/19/18 [History Last Taken Unknown] lovastatin 40 mg tablet 80 mg PO QHS 06/19/18 [History Last Taken Unknown] polyethylene glycol 3350 17 gram/dose oral powder (Miralax) 17 g PO DAILY PRN constipation 06/19/18 [History Last Taken Unknown] ranitidine HCl 150 mg tablet (Zantac) 150 mg PO QDAY 06/19/18 [History Last Taken Unknown] tizanidine 4 mg capsule (Zanaflex) 4 mg PO TID PRN muscle spasticity 06/19/18 [History Last Taken Unknown] pramipexole 1 mg tablet 1 mg PO BID 09/19/20 [History Last Taken 06/27/23] albuterol sulfate 90 mcg/actuation aerosol inhaler (Proventil HFA) 2 puff inhalation Q4H PRN shortness of breath or wheezing #18 grams 11/20/21 [Rx Last Taken Unknown] bupropion HCl 150 mg tablet,12 hr sustained-release (Wellbutrin SR) 150 mg PO BID 05/14/22 [History Last Taken Unknown] ipratropium 0.5 mg-albuterol 3 mg (2.5 mg base)/3 mL nebulization soln 3 ml inhalation Q4H PRN PRN SOB &/OR WHEEZING #180 mL 12/18/22 [Rx Last Taken Unknown] fluticasone fur. 200 mcg-umeclid 62.5 mcg-vilant 25 mcg inhalat.powder (Trelegy Ellipta) 1 inh inhalation DAILY #60 ea 01/15/23 [Rx Last Taken Unknown] docusate sodium 100 mg capsule 200 mg PO DAILY 06/27/23 [History Last Taken 06/26/23] furosemide 20 mg tablet 20 mg PO DAILY 06/27/23 [History Last Taken 06/27/23] gabapentin 400 mg capsule 400 mg PO TID 06/27/23 [History Last Taken 06/27/23] levothyroxine 100 mcg tablet 100 mcg PO DAILY 06/27/23 [History Last Taken 06/27/23] montelukast 10 mg tablet 10 mg PO QHS 06/27/23 [History Last Taken Unknown] omeprazole 40 mg capsule,delayed release 40 mg PO DAILY 06/27/23 [History Last Taken 06/27/23] potassium chloride 10 mEq tablet,extended release 10 meq PO DAILY 06/27/23 [History Last Taken Unknown] risankizumab-rzaa 150 mg/mL subcutaneous pen injector (Skyrizi) 150 mg subcut .COMPLEX 06/27/23 [History Last Taken Unknown] Allergy/AdvReac Type Severity Reaction Status Date / Time ciprofloxacin Allergy Mild severe Verified 06/27/23 14:29 upset GI clarithromycin Allergy Mild severe Verified 06/27/23 14:29 upset GI fenofibrate Allergy Mild Verified 06/27/23 14:29 nabumetone Allergy Mild Verified 06/27/23 14:29 oxybutynin Allergy Mild Verified 06/27/23 14:29 Sulfa (Sulfonamide Allergy Mild Verified 06/27/23 14:29 Antibiotics) fesoterodine [From [facility]] AdvReac Mild Other Verified 06/27/23 14:29 Family History Mother Cancer Lung Heart disease CVA (cerebral vascular accident) Father COPD (chronic obstructive pulmonary disease) Brother Diabetes Kidney disease Surgical History History of hysterectomy History of lung biopsy Social History Smoking Status: Current every day smoker tobacco type: cigarettes Tobacco: How many years used: 45 second hand exposure: Yes alcohol intake: never substance use type: does not use caffeine: Yes Type: coffee what type of physical activity do you participate in: other frequency: daily ROS ROS Narrative 10 systems were reviewed with pertinent positives as noted in the HPI above. Physical Exam Const alert, oriented x3 and no apparent distress General Appearance: cooperative HEENT normocephalic, head/scalp atraumatic and moist oral mucous membranes Eyes PERRL, EOMs intact bilaterally and conjunctivae normal Neck supple General: trachea midline Chest inspection of chest normal Resp normal respiratory effort Resp Narrative: Diminished air movement, left greater than right along with expiratory wheezes. Cardio regular rate and regular rhythm GI normal to inspection, nondistended, normoactive bowel sounds Extremity no clubbing, cyanosis or edema Skin no rashes or lesions noted Neuro oriented x3, CN's II-XII intact bilaterally and moves all extremities Psych cooperative and affect normal Lab / Micro Data 06/28/23 05:52 06/28/23 05:52 Labs: Laboratory Results - last 24 hr 06/28/23 05:52: WBC 14.5 H, RBC 5.04, Hgb 15.1 H, Hct 49.0 H, MCV 97.2, MCH 30.0, MCHC 30.8 L, RDW Std Deviation 60.8 H, RDW Coeff of Brandy 17.0 H, Plt Count 230, MPV 11.8, Immature Gran % (Auto) 0.600, Neut % (Auto) 85.4 H, Lymph % (Auto) 9.9 L, Bonner % (Auto) 3.9, Eos % (Auto) 0.1, Baso % (Auto) 0.1, Absolute Neuts (auto) 12.4 H, Absolute Lymphs (auto) 1.44, Nucleated RBC % 0, Sodium 140, Potassium 3.9, Chloride 109 H, Carbon Dioxide 26.0, Anion Gap 5, BUN 11, Creatinine 0.79, Estim Creat Clear Calc 71.78, Est GFR (MDRD) Af Amer 95, Est GFR (MDRD) Non-Af 79, BUN/Creatinine Ratio 13.9, Glucose 120 H, Calcium 9.4 Charges/Coding Visit Charges Inpatient E&M: 90131 Init Hosp L3
[2023-06-28 07:18] LABS: Partial Thromboplast Time 33.6 Seconds (24.1-36.2); Prothrombin Time (Protime)PT. 13.5 SECONDS (11.7-14.9)
[2023-06-28] MEDS: Lactated Ringers 1,000 ML 15 ML IV (07:57)
--- NOTE | 2023-06-28 08:15 | PCM.PN.HOSP ---
Reason for Visit Reason for Visit: Shortness of breath Subjective Subjective Ms. Aguirre is a 57-year-old white female who presented to outside facility at [facility] emergency department with shortness of breath and chest discomfort which began on the day of presentation. She has baseline moderate COPD and chronic hypoxic respiratory failure and requires 2 L of supplemental oxygen per minute at baseline. She follows in the pulmonary medicine clinic and is maintained on triple therapy inhaler regimen. The patient still has been smoking but states she now intends to quit. The CT of her chest was obtained at the outside facility and there was no evidence of pulmonary embolism however significant bilateral emphysematous changes were noted along with left lower lobe atelectasis of unclear etiology. Request for transfer was made as she follows with pulmonary medicine here and upon admission she was placed on antibiotics, bronchodilators and steroids. She was maintained on BiPAP therapy overnight and has subsequently been transferred to heated high flow nasal cannula this morning and is currently on 10 L. Pulmonary medicine has already evaluated her today and plans on performing a bronchoscopy this morning and recommended continuation of aggressive bronchopulmonary hygiene as well as bronchodilators and steroids. Dr. Chang ordered MRSA screen and strep pneumo and Legionella antigens. States she is feeling a little bit better. She just returned from bronchoscopy where mucous plug was removed from her left lower lobe. She is pleased to hear that she had no obstructing mass or lesion. She states she plans on quitting smoking and states she has done. No current issues. Is asking if she can eat lunch. Objective Data Objective Data Vital Signs: Vital Signs Temp Pulse Resp BP Pulse Ox O2 Del Method O2 Flow Rate 97.7 F L 68 17 135/78 H 93 High Flow 10 06/28/23 07:20 06/28/23 07:20 06/28/23 07:20 06/28/23 07:20 06/28/23 07:20 06/28/23 07:20 06/28/23 07:20 FiO2 55 06/28/23 03:17 Oxygen Flow Rate (L/min) 10 Oxygen Delivery Method High Flow Weight: 95.2 kg Body Mass Index (BMI) 33.8 Lab / Micro Data 06/28/23 05:52 06/28/23 05:52 Labs: Laboratory Results - last 24 hr 06/28/23 05:52: WBC 14.5 H, RBC 5.04, Hgb 15.1 H, Hct 49.0 H, MCV 97.2, MCH 30.0, MCHC 30.8 L, RDW Std Deviation 60.8 H, RDW Coeff of Brandy 17.0 H, Plt Count 230, MPV 11.8, Immature Gran % (Auto) 0.600, Neut % (Auto) 85.4 H, Lymph % (Auto) 9.9 L, [place] % (Auto) 3.9, Eos % (Auto) 0.1, Baso % (Auto) 0.1, Absolute Neuts (auto) 12.4 H, Absolute Lymphs (auto) 1.44, Nucleated RBC % 0, Sodium 140, Potassium 3.9, Chloride 109 H, Carbon Dioxide 26.0, Anion Gap 5, BUN 11, Creatinine 0.79, Estim Creat Clear Calc 71.78, Est GFR (MDRD) Af Amer 95, Est GFR (MDRD) Non-Af 79, BUN/Creatinine Ratio 13.9, Glucose 120 H, Calcium 9.4 06/28/23 06:55: PT 13.5, INR 1.0, APTT 33.6 Radiography Diagnostic Testing: Radiology Impression Chest X-Ray 06/28/23 06:30 IMPRESSION: Left basilar airspace consolidation and atelectasis suggests pneumonia. Electronically Signed: Seble Angulo MD at 6:56 EDT , Physical Exam Const alert, oriented x3, no apparent distress and well nourished Constitutional Narrative: Obese, middle-aged, white female, sitting up in bed, appears comfortable and nontoxic, at bedside HEENT head/scalp atraumatic and moist oral mucous membranes HEENT Narrative: Mallampati 2-3, no thrush Head and Scalp: normocephalic Resp normal respiratory effort, no retractions and no use of accessory muscles Resp Narrative: Diminished in apices bilaterally, mild diminishment at right base, left base open with few inspiratory crackles that dissipate with repeat repetitive inspiration, currently on 10 L heated high flow nasal cannula Auscultation: crackles; Negative for rhonchi or wheezes Cardio regular rate, regular rhythm, S1 normal heart sound, S2 normal heart sound, no murmurs, no rub, no gallops and no clicks GI normal to inspection, nondistended, normoactive bowel sounds and soft to palpation Extremity no clubbing, cyanosis or edema Extremity Narrative: Pedal pulses are 2+ Neuro oriented x3, moves all extremities and no focal motor deficits Speech: speech normal Psych affect normal Psych Narrative: Very pleasant, eye contact is good, interacts appropriately Assessment & Plan Assessment/Plan (1) Acute on chronic respiratory failure with hypoxia: (2) Moderate COPD (chronic obstructive pulmonary disease): (3) Leukocytosis: (4) Erythrocytosis: PLAN: Plan Acute on chronic hypoxic respiratory failure -Etiology is currently unknown however treating for pneumonia at this time -Will transition ceftriaxone to Zosyn to cover Pseudomonas with concerns of postobstructive disease -Continue aggressive pulmonary toilet -Continue with continuous pulse oximetry -Continue I-S and Pep therapy -Add Mucinex 1200 p.o. twice daily -Continue methylprednisolone 40 every 8 -Patient is chronically on 2 L supplemental cannula -Currently requiring 10 L heated high flow -Wean as able -BiPAP as needed and nocturnally -Bronchoscopy today at 8:30 AM -Pulmonary medicine following-appreciate input Leukocytosis -Likely related to the above -Procalcitonin is pending -Continue antibiotics -Will obtain BAL via bronchoscopy and await culture result Erythrocytosis -Anticipate this is chronic however no previous labs available -Repeat CBC in a.m. COPD -PFTs done recently show moderate disease -Patient is on triple therapy inhalers -Chronically O2 dependent on 2 L -Follows as an outpatient with pulmonary medicine -Will need outpatient follow-up after discharge Hypothyroidism -Continue home levothyroxine Seasonal allergies -Continue home Singulair GERD -Continue home PPI Hyperlipidemia -Continue home statin next 1 restless leg syndrome -Continue Mirapex Psoriasis -Hold home injectable Lumbar radiculopathy -Continue home chronic pain medication DVT prophylaxis -Enoxaparin daily CODE STATUS Full code Charges/Coding Visit Charges Inpatient E&M: 02719 Subs Hosp L2
[2023-06-28 08:43] LABS: Procalcitonin < 0.04 ng/mL (0.00-0.09)
--- NOTE | 2023-06-28 09:46 | OP.BRONCH_ITS ---
Patient Name: Saray Aguirre Procedure Date: 06/28/2023 8:37 AM Date of : 1965 Age: 57 Procedure: Bronchoscopy Indications: Atelectasis of the left lower lobe Providers: Jose F Chang MD Medicines: Monitored Anesthesia Care Complications: No immediate complications Procedure: Pre-Anesthesia Assessment: - A History and Physical has been performed. Patient meds and allergies have been reviewed. The risks and benefits of the procedure and the sedation options and risks were discussed with the patient. All questions were answered and informed consent was obtained. Patient identification and proposed procedure were verified prior to the procedure by the physician and the nurse in the procedure room. Mental Status Examination: alert and oriented. Airway Examination: normal oropharyngeal airway. Respiratory Examination: poor air movement. CV Examination: normal. ASA Grade Assessment: III - A patient with severe systemic disease. After reviewing the risks and benefits, the patient was deemed in satisfactory condition to undergo the procedure. The anesthesia plan was to use monitored anesthesia care (MAC). Immediately prior to administration of medications, the patient was re-assessed for adequacy to receive sedatives. The heart rate, respiratory rate, oxygen saturations, blood pressure, adequacy of pulmonary ventilation, and response to care were monitored throughout the procedure. The physical status of the patient was re-assessed after the procedure. After I obtained informed consent, the scope was passed under direct vision. Throughout the procedure, the patient's blood pressure, pulse, and oxygen saturations were monitored continuously. The bronchoscope was introduced through the mouth and advanced to the tracheobronchial tree. The procedure was accomplished without difficulty. The patient tolerated the procedure well. Findings: The nasopharynx/oropharynx appears normal. The larynx appears normal. The vocal cords appear normal. The subglottic space is normal. The trachea is of normal caliber. The jessenia is sharp. The tracheobronchial tree of the right lung was examined to at least the first subsegmental level. Bronchial mucosa and anatomy in the right lung are normal; there are no endobronchial lesions, and no secretions. Left Lung Abnormalities: Copious, mucoid secretions were found in the left lower lobe. They were partially obstructing the airway. The bronchoscope was advanced until wedged at the desired location for bronchoalveolar lavage. BAL was performed in the left lower lobe of the lung and sent for cell count, bacterial culture, viral smears & culture, and fungal & AFB analysis and cytology. 60 mL of fluid were instilled. 30 mL were returned. The return was mucoid. Mucous plugs were present in the return fluid. Impression: - Atelectasis of the left lower lobe - The airway examination of the right lung was normal. - Copious, mucoid secretions were found in the left lower lobe. - Bronchoalveolar lavage was performed. Recommendation: - Await BAL results. Procedure Code(s): --- Professional --- 57928, Bronchoscopy, rigid or flexible, including fluoroscopic guidance, when performed; with bronchial alveolar lavage Diagnosis Code(s): --- Professional --- J98.11, Atelectasis R09.89, Other specified symptoms and signs involving the circulatory and respiratory systems CPT copyright 2021 [employer]. All rights reserved. The codes documented in this report are preliminary and upon beam builder helper review may be revised to meet current compliance requirements. DO Jose F Joshua MD 06/28/2023 9:45:16 AM This report has been signed electronically. Number of Addenda: 0 Note Initiated On: 06/28/2023 8:37 AM
[2023-06-28 10:20] LABS: Cytology, Body Fluid / CSF SEE PATHOLOGY REPORT
[2023-06-28] MEDS: Ipratropium/Albuterol Sulfate 3 ML AMPUL.NEB INHALATION ×3 (10:40→19:10)
[2023-06-28 10:48] LABS: Color/Body Fluid COLORLESS; Source- Body Fluid BRONCHIAL LAVAGE
[2023-06-28 10:49] LABS: Appearance/Body Fluid SL CLDY
[2023-06-28 10:56] LABS: Red Cell Count/Body Fluid 175 /mm3
[2023-06-28 10:57] LABS: White Blood Count/Body Fluid 1045 /mm3
[2023-06-28] MEDS: Pramipexole Di-HCl 1 MG Tablet PO ×2 (11:31→21:39)
[2023-06-28] MEDS: Furosemide 20 MG Tablet PO (11:31)
[2023-06-28] MEDS: Docusate Sodium 100 MG Capsule 200 MG PO (11:31)
[2023-06-28] MEDS: Pantoprazole Sodium 40 MG Tablet PO (11:31)
[2023-06-28] MEDS: Enoxaparin 40 MG/0.4 ML Syringe SC (11:31)
[2023-06-28] MEDS: 0.9% Saline Lock 10 ML Syringe IV ×3 (11:39→21:40)
--- NOTE | 2023-06-28 11:55 | CASEMGMT ---
RN CM Face to Face with patient for initial transition planning/care coordination assessment. RN CM introduced self and role at [facility]. Patient sitting in chair, alert and oriented. Patient willing to participate in assessment and is able to answer all questions appropriately. Care providers, pharmacy, and demographics verified. Patient wishes to discharge home, denies need for home health at this time. Patient states she has no further needs or concerns at this time. CM to follow for discharge planning needs that may arise. PCP: FLY Sandoval Specialists: Sathish keno dealer Preferred [facility] [employer] [facility] Prescription Benefit: yes Living Will/HPOA: none LNOK: significant other Living Arrangements: Patient lives with significant other in a mobile home with 4 steps and railing x2. Patient states she is independent at home. Transportation: self, significant other DME/HHC: Patient has nebulizer, pulse ox, POC, and home oxygen through [employer] at 2lpm with exertion. No previous HHC or SNF. Disposition Plan: Patient to discharge home with family support and follow-up plans in place. Caitlyn RAYA, RN, CM
[2023-06-28] MEDS: guaiFENesin 1,200 MG Tablet 1200 MG PO ×2 (12:14→21:40)
[2023-06-28 13:08] LABS: Neutrophil (Segs) 100 %
[2023-06-28 13:11] LABS: Body Fluid QC Type(s) BF1,BF2
[2023-06-28 19:56] LABS: M R Staph aureus DNA By PCR Negative (Negative); Probe Check PASS
[2023-06-28] MEDS: Atorvastatin Calcium 20 MG Tablet PO (21:39)
[2023-06-28] MEDS: Montelukast 10 MG Tablet PO (21:39)
[2023-06-29] VITALS (15 sets, daily range): BP systolic 103–128; BP diastolic 60–91; PULSE 57–76; RESP 16–18; TEMP 36.5–36.6; O2SAT 85–96
[2023-06-29] MEDS: HYDROcodone Bitartrate/Apap 5/325 Tablet PO ×4 (02:52→23:36)
[2023-06-29] MEDS: Gabapentin 400 MG Capsule PO ×3 (06:31→21:38)
[2023-06-29] MEDS: Methylprednisolone Sod Succ 40 MG/ML VIAL IV ×3 (06:31→21:40)
[2023-06-29] MEDS: 0.9% Saline Lock 10 ML Syringe IV ×3 (06:32→14:54)
[2023-06-29] MEDS: Levothyroxine 100 MCG Tablet PO (06:32)
--- NOTE | 2023-06-29 06:48 | PCM.PN.INT ---
Assessment & Plan Assessment/Plan (1) Acute on chronic respiratory failure with hypoxia: (2) Moderate COPD (chronic obstructive pulmonary disease): PLAN: Plan RECOMMENDATIONS: 1. Wean supplemental oxygen to maintain saturations at or above 90%. 2. Continue empiric antimicrobials, pending finalized culture results. 3. Continue bronchodilators and steroids as ordered. 4. Continue aggressive bronchopulmonary hygiene. 5. Possible discharge tomorrow pending clinical course. IMPRESSIONS: 1. Acute on chronic hypoxemic respiratory failure Outside hospital imaging demonstrated left lower lobe atelectasis, which appeared to be secondary to mucous plugging/pneumonia, following bronchoscopy. The patient has significant bilateral emphysematous changes along with moderate obstructive lung disease based upon PFTs. Therefore, I agree with continuing antibiotics, bronchodilators and steroids. Continue aggressive bronchopulmonary hygiene, in the interim. The patient has improved significantly from a breathing perspective following bronchoscopy yesterday. Continue supportive measures. 2. History of chronic tobacco dependency/obstructive sleep apnea with PAP noncompliance Continue supportive measures as noted above. Tobacco cessation counseling was provided. Recommend empiric BiPAP therapy with naps and nightly. 3. History of hypertension/hyperlipidemia/hypothyroidism/GERD Complicates care, management, recovery and prognosis. Continue home medications as indicated. This note was generated with [employer] dictation software. It may contain incorrect words, spelling, and punctuation that were not noted in checking the note before signing. Subjective Subjective The patient was seen and examined at the bedside this morning. Events from the last 24 hours have been reviewed. The patient is currently afebrile, hemodynamically stable and maintaining appropriate oxygen saturations on 4 L/min via nasal cannula. The patient reported significant interval improvement in her breathing quality following bronchoscopy yesterday. She does continue to have a cough that is productive of sputum. Objective Data Objective Data The patient's most recent lab work, culture data and imaging studies have all been personally reviewed. Left lower lobe BAL results are pending. Vital Signs: Vital Signs Temp Pulse Resp BP Pulse Ox O2 Del Method O2 Flow Rate 98 F 76 16 128/68 H 96 High Flow 8 06/29/23 02:52 06/29/23 02:52 06/29/23 02:52 06/29/23 02:52 06/29/23 02:52 06/29/23 02:52 06/29/23 02:52 FiO2 40 06/28/23 21:50 Oxygen Flow Rate (L/min) 8 Oxygen Delivery Method High Flow Weight: 209 lb 14.081 oz Body Mass Index (BMI) 33.8 Intake & Output: Intake and Output for Last 24 Hours 06/27/23 06/28/23 06/29/23 23:59 23:59 23:59 Intake Total 350 / 350 236.5 / 236.5 Balance 350 / 350 236.5 / 236.5 Lab / Micro Data Attestation: I reviewed the patient's lab results. 06/28/23 05:52 06/28/23 05:52 Labs: Laboratory Results - last 24 hr 06/28/23 06:55: PT 13.5, INR 1.0, APTT 33.6, Procalcitonin < 0.04 06/28/23 17:23: MRSA (PCR) Negative 06/28/23 : Fluid Source BRONCHIAL LAVAGE, Fluid Color COLORLESS, Fluid Appearance SL CLDY, Fluid WBC 1045, Fluid RBC 175, Fluid Tot Cell Count TNP, Fluid Neutrophils 100, Fl Pathologist Comment May follow, Fluid Comment 2 Not Reportable Micro: Microbiology 06/29/23 02:00 Sputum, Expectorated/Coughed Gram Stain - Preliminary 06/29/23 02:14 Urine, Clean Catch Streptococcus pneumoniae Antigen (M - Final 06/29/23 02:14 Urine, Clean Catch Legionella Antigen - Final 06/28/23 14:50 Mucosa - Nose Respiratory Panel (PCR) - Final 06/28/23 Unknown Bronchial Lavage - Left Lower Lobe Gram Stain - Final Radiography Diagnostic Testing: Radiology Impression Chest X-Ray 06/28/23 06:30 IMPRESSION: Left basilar airspace consolidation and atelectasis suggests pneumonia. Electronically Signed: Seble Angulo MD at 6:56 EDT , Physical Exam Const alert, oriented x3 and no apparent distress General Appearance: cooperative HEENT normocephalic, head/scalp atraumatic and moist oral mucous membranes Eyes PERRL, EOMs intact bilaterally and conjunctivae normal Neck supple General: trachea midline Chest inspection of chest normal Resp normal respiratory effort Resp Narrative: Improved air movement in the left lung base. Auscultation: diminished lung sounds Cardio regular rate and regular rhythm GI normal to inspection, nondistended, normoactive bowel sounds Extremity no clubbing, cyanosis or edema Skin no rashes or lesions noted Neuro oriented x3, CN's II-XII intact bilaterally and moves all extremities Psych cooperative and affect normal Charges/Coding Visit Charges Inpatient E&M: 97120 Subs Hosp L2
[2023-06-29] MEDS: Ipratropium/Albuterol Sulfate 3 ML AMPUL.NEB INHALATION ×4 (07:10→19:43)
[2023-06-29 08:15] LABS: Absolute Lymphocyte Count 1.79 X10^3/uL (0.83-4.51); Absolute Neutrophil Count 11.6 X10^3/uL (2.0-7.7); Basophil# 0.01 X10^3/uL; Basophil% 0.1 % (0-1); Eosinophil# 0.01 X10^3/uL; Eosinophils% 0.1 % (0-5); Hematocrit 50.3 % (37-47); Lymphocyte # 1.79 X10^3/ul (0.83-4.51); Lymphocyte % 12.6 % (19-41); Mean Corp Hgb Conc 29.8 g/dL (32-36); Mean Corpuscular Hgb 29.5 pg (27.0-32.0); Mean Platelet Vol. 12.2 fl (6.2-12.0); Monocyte# 0.67 X10^3/uL; Monocyte% 4.7 % (0-10); NRBC Flagged by Analyzer 0 % (0-5); Neutrophil # 11.64 X10^3/uL (2.7-7.7); Platelet Count 234 K/mm3 (150-450); RBC Distribution Width CV 16.9 % (11.6-14.6); RBC Distribution Width SD 62.6 fl (35.1-43.9); Red Blood Count 5.08 M/mm3 (4.2-5.4); White Blood Count 14.2 K/mm3 (4.4-11.0)
[2023-06-29 08:32] LABS: ALB/GLOB Ratio 1.1 RATIO (0.9-2.4); AST(SGOT) 13 U/L (15-37); Alanine Aminotransfer ALT/SGPT 35 U/L (13-56); Albumin, Serum 3.9 g/dL (3.2-5.0); Alkaline Phosphatase 67 U/L (45-117); Anion Gap 4 (5-15); BUN 15 mg/dL (7-18); BUN/Creat Ratio 20.4 RATIO (10-20); Calcium,Total 9.2 mg/dL (8.5-10.1); Chloride 108 mmol/L (98-107); Creatinine, Serum 0.74 mg/dL (0.55-1.02); EST Glomerular Filtration Rate 86 mL/min (>60); Est Glom Filt Rate - Afr Amer 104 mL/min (>60); Estimated Creatinine Clearance 76.63 ml/min; Globulin 3.7 g/dL (2.2-4.2); Glucose 92 mg/dL (74-106); Magnesium 2.7 mg/dL (1.6-2.6); Phosphorus 3.7 mg/dL (2.5-4.9); Potassium 3.9 mmol/L (3.5-5.1); Protein, Total 7.6 g/dL (6.4-8.2); Sodium Level 140 mmol/L (136-145)
[2023-06-29] MEDS: Docusate Sodium 100 MG Capsule 200 MG PO (09:48)
[2023-06-29] MEDS: Pantoprazole Sodium 40 MG Tablet PO (09:48)
[2023-06-29] MEDS: Pramipexole Di-HCl 1 MG Tablet PO ×2 (09:48→21:39)
[2023-06-29] MEDS: Furosemide 20 MG Tablet PO (09:48)
[2023-06-29] MEDS: guaiFENesin 1,200 MG Tablet 1200 MG PO ×2 (09:49→21:39)
[2023-06-29] MEDS: Enoxaparin 40 MG/0.4 ML Syringe SC (09:49)
[2023-06-29] MEDS: Nicotine Polacrilex 2 MG GUM PO (11:56)
--- NOTE | 2023-06-29 12:34 | PCM.PN.HOSP ---
Reason for Visit Reason for Visit: Diagnoses Elevated white blood cell count, unspecified (06/27/23) Secondary polycythemia (06/27/23) Chronic obstructive pulmonary disease, unspecified (06/27/23) Acute and chronic respiratory failure with hypoxia (06/27/23) Objective Data Objective Data Vital Signs: Vital Signs Temp Pulse Resp BP Pulse Ox O2 Del Method O2 Flow Rate 97.8 F 66 18 119/91 H 93 Nasal Cannula 2 06/29/23 08:25 06/29/23 10:18 06/29/23 10:18 06/29/23 08:25 06/29/23 11:45 06/29/23 10:25 06/29/23 11:45 FiO2 40 06/28/23 21:50 Oxygen Flow Rate (L/min) [ 6 AMBULATING with Oxygen #3] Oxygen Flow Rate (L/min) [ 4 AMBULATING with Oxygen #2] Oxygen Flow Rate (L/min) [ 3 AMBULATING with Oxygen #1] Oxygen Flow Rate (L/min) [At 2 REST with Oxygen] Oxygen Flow Rate (L/min) 2 Oxygen Delivery Method Nasal Cannula Weight: 95.2 kg Body Mass Index (BMI) 33.8 Intake & Output: Intake and Output for Last 24 Hours 06/27/23 06/28/23 06/29/23 23:59 23:59 23:59 Intake Total 350 / 350 606.5 / 606.5 Balance 350 / 350 606.5 / 606.5 Lab / Micro Data 06/29/23 07:09 06/29/23 07:09 Labs: Laboratory Results - last 24 hr 06/28/23 17:23: MRSA (PCR) Negative 06/28/23 : Fluid Neutrophils 100 06/29/23 07:09: WBC 14.2 H, RBC 5.08, Hgb 15.0, Hct 50.3 H, MCV 99.0, MCH 29.5, MCHC 29.8 L, RDW Std Deviation 62.6 H, RDW Coeff of Brandy 16.9 H, Plt Count 234, MPV 12.2 H, Immature Gran % (Auto) 0.500, Neut % (Auto) 82.0 H, Lymph % (Auto) 12.6 L, [place] % (Auto) 4.7, Eos % (Auto) 0.1, Baso % (Auto) 0.1, Absolute Neuts (auto) 11.6 H, Absolute Lymphs (auto) 1.79, Nucleated RBC % 0, Sodium 140, Potassium 3.9, Chloride 108 H, Carbon Dioxide 28.0, Anion Gap 4 L, BUN 15, Creatinine 0.74, Estim Creat Clear Calc 76.63, Est GFR (MDRD) Af Amer 104, Est GFR (MDRD) Non-Af 86, BUN/Creatinine Ratio 20.4 H, Glucose 92, Calcium 9.2, Phosphorus 3.7, Magnesium 2.7 H, Total Bilirubin 0.50, AST 13 L, ALT 35, Alkaline Phosphatase 67, Total Protein 7.6, Albumin 3.9, Globulin 3.7, Albumin/Globulin Ratio 1.1 Micro: Microbiology 06/28/23 Unknown Bronchial Lavage - Left Lower Lobe Gram Stain - Final 06/28/23 Unknown Bronchial Lavage - Left Lower Lobe Respiratory Culture - Preliminary Appears to be normal respiratory collins. Further studies to follow. 06/29/23 02:00 Sputum, Expectorated/Coughed Gram Stain - Preliminary 06/29/23 02:14 Urine, Clean Catch Streptococcus pneumoniae Antigen (M - Final 06/29/23 02:14 Urine, Clean Catch Legionella Antigen - Final 06/28/23 14:50 Mucosa - Nose Respiratory Panel (PCR) - Final Physical Exam Const alert, oriented x3, no apparent distress and well nourished Constitutional Narrative: Obese, middle-aged, white female, sitting up on the edge of the bed playing cards with her , appears comfortable and nontoxic, at bedside HEENT head/scalp atraumatic and moist oral mucous membranes HEENT Narrative: Mallampati 3, no thrush Head and Scalp: normocephalic Resp normal respiratory effort, no retractions and no use of accessory muscles Resp Narrative: Diffusely diminished bases, much improved aeration in the left base without any abdomen sounds noted today Auscultation: Negative for crackles, rhonchi or wheezes Cardio regular rate, regular rhythm, S1 normal heart sound, S2 normal heart sound, no murmurs, no rub, no gallops and no clicks GI normal to inspection, nondistended, normoactive bowel sounds and soft to palpation Extremity no clubbing, cyanosis or edema Extremity Narrative: Pedal pulses are 2+ Neuro oriented x3, moves all extremities and no focal motor deficits Speech: speech normal Psych affect normal Psych Narrative: Very pleasant, eye contact is good, interacts appropriately Assessment & Plan Assessment/Plan (1) Acute on chronic respiratory failure with hypoxia: (2) Moderate COPD (chronic obstructive pulmonary disease): (3) Leukocytosis: (4) Erythrocytosis: PLAN: Plan Acute on chronic hypoxic respiratory failure secondary to pneumonia -Continue Pseudomonas -Continue aggressive pulmonary toilet -Continue with continuous pulse oximetry -Continue I-S and Pep therapy -Add Mucinex 1200 p.o. twice daily -Continue methylprednisolone 40 every 8 -Patient is chronically on 2 L supplemental cannula -Patient has been weaned to 2 L at rest but did require 6 L with exertion -Will reassess ambulatory pulse ox tomorrow -BiPAP as needed and nocturnally -Bronchoscopy done on 06/28/2023 and noted mucous plugging of the left lower lobe with BAL and culture sent--> all are currently pending -Strep pneumo and Legionella antigens are negative -Pulmonary medicine following-appreciate input Leukocytosis -Likely related to the above -Procalcitonin is unremarkable -Continue antibiotics -Await finalization of cultures Erythrocytosis -Resolved COPD -PFTs done recently show moderate disease -Patient is on triple therapy inhalers -Chronically O2 dependent on 2 L -Follows as an outpatient with pulmonary medicine -Will need outpatient follow-up after discharge Hypothyroidism -Continue home levothyroxine Seasonal allergies -Continue home Singulair GERD -Continue home PPI Hyperlipidemia -Continue home statin next 1 restless leg syndrome -Continue Mirapex Psoriasis -Hold home injectable Lumbar radiculopathy -Continue home chronic pain medication DVT prophylaxis -Enoxaparin daily CODE STATUS Full code Charges/Coding Visit Charges Inpatient E&M: 16695 Subs Hosp L2
[2023-06-29] MEDS: Atorvastatin Calcium 20 MG Tablet PO (21:39)
[2023-06-29] MEDS: Montelukast 10 MG Tablet PO (21:39)
--- NOTE | 2023-06-29 23:09 | CPS ---
Pt refusing bipap at this time
[2023-06-30 03:35] VITALS: BP 112/69; PULSE 58; RESP 18; TEMP 36.6; O2SAT 97
[2023-06-30] MEDS: Levothyroxine 100 MCG Tablet PO (05:33)
[2023-06-30] MEDS: Gabapentin 400 MG Capsule PO (05:33)
[2023-06-30] MEDS: Methylprednisolone Sod Succ 40 MG/ML VIAL IV (05:34)
[2023-06-30] MEDS: HYDROcodone Bitartrate/Apap 5/325 Tablet PO (05:36)
[2023-06-30 06:13] LABS: Absolute Lymphocyte Count 1.67 X10^3/uL (0.83-4.51); Absolute Neutrophil Count 9.3 X10^3/uL (2.0-7.7); Basophil# 0.02 X10^3/uL; Basophil% 0.2 % (0-1); Eosinophil# 0.01 X10^3/uL; Eosinophils% 0.1 % (0-5); Hematocrit 47.6 % (37-47); Hemoglobin 14.6 g/dL (12.0-15.0); Lymphocyte # 1.67 X10^3/ul (0.83-4.51); Lymphocyte % 14.5 % (19-41); Mean Corp Hgb Conc 30.7 g/dL (32-36); Mean Corpuscular Hgb 29.8 pg (27.0-32.0); Mean Corpuscular Volume 97.1 fL (81-99); Mean Platelet Vol. 12.2 fl (6.2-12.0); Monocyte# 0.48 X10^3/uL; Monocyte% 4.2 % (0-10); NRBC Flagged by Analyzer 0 % (0-5); Neutrophil # 9.27 X10^3/uL (2.7-7.7); Neutrophil % 80.3 % (47-70); Platelet Count 249 K/mm3 (150-450); RBC Distribution Width SD 61.1 fl (35.1-43.9); White Blood Count 11.5 K/mm3 (4.4-11.0)
--- NOTE | 2023-06-30 06:13 | PCM.PN.INT ---
Assessment & Plan Assessment/Plan (1) Acute on chronic respiratory failure with hypoxia: (2) Moderate COPD (chronic obstructive pulmonary disease): PLAN: Plan RECOMMENDATIONS: 1. Continue to wean supplemental oxygen to maintain saturations at or above 90%. 2. Continue empiric antimicrobials to complete 7 days of therapy. 3. Continue bronchodilators and steroids as ordered. Recommend 5-day burst of prednisone 40 mg daily, at discharge. 4. Continue aggressive bronchopulmonary hygiene. 5. Given that the patient is at her baseline from an oxygenation perspective, she can be discharged home from my perspective. 6. Recommend outpatient pulmonary follow-up in 2 weeks. IMPRESSIONS: 1. Acute on chronic hypoxemic respiratory failure Outside hospital imaging demonstrated left lower lobe atelectasis, which appeared to be secondary to mucous plugging/pneumonia, following bronchoscopy. The patient has significant bilateral emphysematous changes along with moderate obstructive lung disease based upon PFTs. Therefore, I agree with continuing antibiotics, bronchodilators and steroids. Continue aggressive bronchopulmonary hygiene, in the interim. The patient has improved significantly from a breathing perspective following bronchoscopy. Continue supportive measures. 2. History of chronic tobacco dependency/obstructive sleep apnea with PAP noncompliance Continue supportive measures as noted above. Tobacco cessation counseling was provided. Recommend empiric BiPAP therapy with naps and nightly. 3. History of hypertension/hyperlipidemia/hypothyroidism/GERD Complicates care, management, recovery and prognosis. Continue home medications as indicated. This note was generated with [employer] dictation software. It may contain incorrect words, spelling, and punctuation that were not noted in checking the note before signing. Subjective Subjective The patient was seen and examined at the bedside this morning. Events from the last 24 hours have been reviewed. The patient is currently afebrile, hemodynamically stable and maintaining appropriate oxygen saturations on 2 L/min via nasal cannula. The patient feels quite well this morning and is anxious to be discharged home. Objective Data Objective Data The patient's most recent lab work, culture data and imaging studies have all been personally reviewed. Left lower lobe BAL results are pending. Vital Signs: Vital Signs Temp Pulse Resp BP Pulse Ox O2 Del Method O2 Flow Rate 97.9 F 58 L 18 112/69 97 Nasal Cannula 2 06/30/23 03:35 06/30/23 03:35 06/30/23 03:35 06/30/23 03:35 06/30/23 03:35 06/30/23 03:35 06/30/23 03:35 FiO2 40 06/28/23 21:50 Oxygen Flow Rate (L/min) [ 6 AMBULATING with Oxygen #3] Oxygen Flow Rate (L/min) [ 4 AMBULATING with Oxygen #2] Oxygen Flow Rate (L/min) [ 3 AMBULATING with Oxygen #1] Oxygen Flow Rate (L/min) [At 2 REST with Oxygen] Oxygen Flow Rate (L/min) 2 Oxygen Delivery Method Nasal Cannula Weight: 209 lb 14.081 oz Body Mass Index (BMI) 33.8 Intake & Output: Intake and Output for Last 24 Hours 06/28/23 06/29/23 06/30/23 23:59 23:59 23:59 Intake Total 350 / 350 1056.5 / 1056.5 50 / 50 Balance 350 / 350 1056.5 / 1056.5 50 / 50 Lab / Micro Data Attestation: I reviewed the patient's lab results. 06/30/23 05:43 06/30/23 05:43 Labs: Laboratory Results - last 24 hr 06/29/23 07:09: WBC 14.2 H, RBC 5.08, Hgb 15.0, Hct 50.3 H, MCV 99.0, MCH 29.5, MCHC 29.8 L, RDW Std Deviation 62.6 H, RDW Coeff of Brandy 16.9 H, Plt Count 234, MPV 12.2 H, Immature Gran % (Auto) 0.500, Neut % (Auto) 82.0 H, Lymph % (Auto) 12.6 L, [place] % (Auto) 4.7, Eos % (Auto) 0.1, Baso % (Auto) 0.1, Absolute Neuts (auto) 11.6 H, Absolute Lymphs (auto) 1.79, Nucleated RBC % 0, Sodium 140, Potassium 3.9, Chloride 108 H, Carbon Dioxide 28.0, Anion Gap 4 L, BUN 15, Creatinine 0.74, Estim Creat Clear Calc 76.63, Est GFR (MDRD) Af Amer 104, Est GFR (MDRD) Non-Af 86, BUN/Creatinine Ratio 20.4 H, Glucose 92, Calcium 9.2, Phosphorus 3.7, Magnesium 2.7 H, Total Bilirubin 0.50, AST 13 L, ALT 35, Alkaline Phosphatase 67, Total Protein 7.6, Albumin 3.9, Globulin 3.7, Albumin/Globulin Ratio 1.1 Micro: Microbiology 06/29/23 02:00 Sputum, Expectorated/Coughed Gram Stain - Final 06/28/23 Unknown Bronchial Lavage - Left Lower Lobe Gram Stain - Final 06/28/23 Unknown Bronchial Lavage - Left Lower Lobe Respiratory Culture - Preliminary Appears to be normal respiratory collins. Further studies to follow. 06/29/23 02:14 Urine, Clean Catch Streptococcus pneumoniae Antigen (M - Final 06/29/23 02:14 Urine, Clean Catch Legionella Antigen - Final 06/28/23 14:50 Mucosa - Nose Respiratory Panel (PCR) - Final Radiography Diagnostic Testing: Radiology Impression Chest X-Ray 06/28/23 06:30 IMPRESSION: Left basilar airspace consolidation and atelectasis suggests pneumonia. Electronically Signed: Seble Angulo MD at 6:56 EDT Reading Location ID and State: [facility] / [place] , Service support , Physical Exam Const alert, oriented x3 and no apparent distress Constitutional Narrative: Sitting in bedside recliner. General Appearance: cooperative HEENT normocephalic, head/scalp atraumatic and moist oral mucous membranes Eyes PERRL, EOMs intact bilaterally and conjunctivae normal Neck supple General: trachea midline Chest inspection of chest normal Resp normal respiratory effort Resp Narrative: Improved air movement in the left lung base. Auscultation: diminished lung sounds Cardio regular rate and regular rhythm GI normal to inspection, nondistended, normoactive bowel sounds Extremity no clubbing, cyanosis or edema Skin no rashes or lesions noted Neuro oriented x3, CN's II-XII intact bilaterally and moves all extremities Psych cooperative and affect normal Charges/Coding Visit Charges Inpatient E&M: 46603 Subs Hosp L2
[2023-06-30 06:45] LABS: Anion Gap 4 (5-15); BUN 15 mg/dL (7-18); BUN/Creat Ratio 18.5 RATIO (10-20); Calcium,Total 9.2 mg/dL (8.5-10.1); Chloride 110 mmol/L (98-107); Creatinine, Serum 0.81 mg/dL (0.55-1.02); EST Glomerular Filtration Rate 76 mL/min (>60); Est Glom Filt Rate - Afr Amer 92 mL/min (>60); Estimated Creatinine Clearance 70.01 ml/min; Glucose 107 mg/dL (74-106); Potassium 3.8 mmol/L (3.5-5.1); Sodium Level 140 mmol/L (136-145)
[2023-06-30 07:05] VITALS: PULSE 58; RESP 18; O2SAT 99
[2023-06-30] MEDS: Ipratropium/Albuterol Sulfate 3 ML AMPUL.NEB INHALATION ×2 (07:05→10:39)
[2023-06-30 07:36] VITALS: BP 142/77; PULSE 61; RESP 18; TEMP 36.6; O2SAT 94
[2023-06-30 07:39] VITALS: O2SAT 94
[2023-06-30 08:01] VITALS: O2SAT 87; O2SAT 88; O2SAT 90; O2SAT 94
[2023-06-30] MEDS: Enoxaparin 40 MG/0.4 ML Syringe SC (09:41)
[2023-06-30] MEDS: Docusate Sodium 100 MG Capsule 200 MG PO (09:41)
[2023-06-30] MEDS: guaiFENesin 1,200 MG Tablet 1200 MG PO (09:41)
[2023-06-30] MEDS: Pramipexole Di-HCl 1 MG Tablet PO (09:41)
[2023-06-30] MEDS: Pantoprazole Sodium 40 MG Tablet PO (09:41)
[2023-06-30] MEDS: Furosemide 20 MG Tablet PO (09:41)
[2023-06-30] MEDS: Nicotine Polacrilex 2 MG GUM PO (09:41)
[2023-06-30 10:40] VITALS: PULSE 79; RESP 18; O2SAT 92
--- NOTE | 2023-06-30 10:43 | DS.PCM_ITS ---
Providers Date of Admission: 06/27/23 Date of Discharge: 06/30/23 Primary Care Physician: FELIX Pepe Consultations 06/27/23 15:23 Consult: Assistant Attorney General / Pulmonary Medicine Routine Consulting Provider: Pulmonary Medicine malcolm Velazquez Reason for Consult: LLL collapse EMERGENT Consult: No MD Notified: Yes Date Notified: 06/27/23 Time Notified: 15:56 Method of Notification: Text Reason For Visit: COPD EXACERBATION Diagnosis Discharge Diagnosis (1) Acute on chronic respiratory failure with hypoxia: Status: Chronic Code(s): J96.21 - Acute and chronic respiratory failure with hypoxia (2) Moderate COPD (chronic obstructive pulmonary disease): Status: Chronic Code(s): J44.9 - Chronic obstructive pulmonary disease, unspecified Medications at Discharge Home Medications hydrocodone 7.5 mg-acetaminophen 325 mg tablet (Agate) 1 tab PO Q6H PRN pain lovastatin 40 mg tablet 80 mg PO QHS 06/19/18 polyethylene glycol 3350 17 gram/dose oral powder (Miralax) 17 g PO DAILY PRN constipation 06/19/18 pramipexole 1 mg tablet 1 mg PO BID 09/19/20 ipratropium 0.5 mg-albuterol 3 mg (2.5 mg base)/3 mL nebulization soln 3 ml inhalation Q4H PRN PRN SOB &/OR WHEEZING #180 mL 12/18/22 fluticasone fur. 200 mcg-umeclid 62.5 mcg-vilant 25 mcg inhalat.powder (Trelegy Ellipta) 1 inh inhalation DAILY #60 ea 01/15/23 docusate sodium 100 mg capsule 200 mg PO DAILY 06/27/23 furosemide 20 mg tablet 20 mg PO DAILY 06/27/23 gabapentin 400 mg capsule 400 mg PO TID 06/27/23 levothyroxine 100 mcg tablet 100 mcg PO DAILY 06/27/23 montelukast 10 mg tablet 10 mg PO QHS 06/27/23 omeprazole 40 mg capsule,delayed release 40 mg PO DAILY 06/27/23 potassium chloride 10 mEq tablet,extended release 10 meq PO DAILY 06/27/23 risankizumab-rzaa 150 mg/mL subcutaneous pen injector (Skyrizi) 150 mg subcut .COMPLEX 06/27/23 levofloxacin 750 mg tablet 750 mg PO DAILY #5 tabs 06/30/23 prednisone 20 mg tablet 40 mg (2 x 20 mg) PO DAILY #10 tabs 06/30/23 Hospital Course Operations None Procedures Bronchoscopy and - (Chest x-ray) Summary of Care Provided Minutes Spent on Discharge: 37 Hospital Course: Ms. Aguirre is a 57-year-old white female who presented to outside facility at [place] emergency department with shortness of breath and chest discomfort which began on the day of presentation. She has baseline moderate COPD and chronic hypoxic respiratory failure and requires 2 L of supplemental oxygen per minute at baseline. She follows in the pulmonary medicine clinic and is maintained on triple therapy inhaler regimen. The patient still has been smoking but states she now intends to quit. The CT of her chest was obtained at the outside facility and there was no evidence of pulmonary embolism however significant bilateral emphysematous changes were noted along with left lower lobe atelectasis of unclear etiology. Request for transfer was made as she follows with pulmonary medicine here and upon admission she was placed on antibiotics, bronchodilators and steroids. She was maintained on BiPAP therapy overnight and has subsequently been transferred to heated high flow nasal cannula this morning and is currently on 10 L. Pulmonary medicine has already evaluated her today and plans on performing a bronchoscopy this morning and recommended continuation of aggressive bronchopulmonary hygiene as well as bronchodilators and steroids. She was also maintained on antibiotics and she was initially placed on ceftriaxone and azithromycin but I broadened her out to cover Pseudomonas with Zosyn. She was taken for bronchoscopy on 06/28/2023 and found to have atelectasis of the left lower lobe with copious mucoid secretions in the left lower lobe. Bronchoalveolar lavage was performed and cultures were sent. Her oxygenation improved dramatically throughout the day and she was able to be weaned from 10 L to 4 L within 24 hours of her bronchoscopy but still required 6 L with exertion. By the a.m. of 06/30/2023 with aggressive bronchopulmonary hygiene, antibiotics, and steroids she was weaned to her baseline 2 L at rest. We did an ambulatory pulse ox and she did require an increase to 3 L to maintain sats greater than 88%. Sputum culture was showing a gram-negative freya at the time of discharge and I will follow these cultures to make sure the antibiotics of which she was discharged will be effective against the organism. She was feeling much better so we discharged home in stable condition with a new prescription for oxygen to reflect her needs noted previously. She was also sent on Levaquin for 5 more days to complete a 7-day course and steroid burst at 40 mg daily. I have asked her to follow-up with her pulmonary medicine doctor within the next 2 weeks for repeat evaluation in her primary care physician within the next month. She was able to be discharged home in stable condition on 06/30/2023. Discharge diagnoses: Acute on chronic hypoxic respiratory failure Mucous plugging causing left lower lobe atelectasis Gram-negative pneumonia Erythrocytosis-resolved leukocytosis-improving COPD Hypothyroidism Seasonal allergies GERD Hyperlipidemia Psoriasis Lumbar radiculopathy Physical Exam Const alert, oriented x3, no apparent distress, no limitations and well nourished Constitutional Narrative: Obese, middle-aged, white female, sitting up on the edge of the bed playing cards with her , appears comfortable and nontoxic, at bedside General Appearance: cooperative, comfortable, well kempt and well developed Orientation / Consciousness: awake, oriented to person, oriented to place and oriented to time Exam Limitations: no limitations Nutritional Appearance: obese HEENT normocephalic, head/scalp atraumatic, hearing grossly normal bilaterally and moist oral mucous membranes HEENT Narrative: Mallampati 2-3, no thrush Eyes PERRL, EOMs intact bilaterally and conjunctivae normal Eyes Narrative: No scleral risks Neck no lymphadenopathy and supple Resp normal respiratory effort, no retractions, no use of accessory muscles and clear to auscultation bilaterally Resp Narrative: Mildly diminished diffusely with worse diminishment at the apices bilaterally Auscultation: Negative for crackles, rhonchi or wheezes Cardio regular rate, regular rhythm, S1 normal heart sound, S2 normal heart sound, no murmurs, no rub, no gallops and no clicks GI normal to inspection, nondistended, normoactive bowel sounds and soft to palpation Extremity no clubbing, cyanosis or edema Extremity Narrative: Pedal pulses are 2+ Skin no rashes or lesions noted, no wounds, skin turgor normal and no jaundice Neuro oriented x3, CN's II-XII intact bilaterally, moves all extremities, no focal motor deficits and no sensory deficits noted Speech: speech normal Psych affect normal Psych Narrative: Very pleasant, eye contact is good, interacts appropriately Weight / BMI Weight Weight: 95.2 kg Body Mass Index (BMI) 33.8 ABG / Lab / Microbiology Data 06/30/23 05:43 06/30/23 05:43 Laboratory: Laboratory Results - last 24 hr 06/30/23 05:43: WBC 11.5 H, RBC 4.90, Hgb 14.6, Hct 47.6 H, MCV 97.1, MCH 29.8, MCHC 30.7 L, RDW Std Deviation 61.1 H, RDW Coeff of Brandy 17.0 H, Plt Count 249, MPV 12.2 H, Immature Gran % (Auto) 0.700, Neut % (Auto) 80.3 H, Lymph % (Auto) 14.5 L, [place] % (Auto) 4.2, Eos % (Auto) 0.1, Baso % (Auto) 0.2, Absolute Neuts (auto) 9.3 H, Absolute Lymphs (auto) 1.67, Nucleated RBC % 0, Sodium 140, Potassium 3.8, Chloride 110 H, Carbon Dioxide 26.0, Anion Gap 4 L, BUN 15, Creatinine 0.81, Estim Creat Clear Calc 70.01, Est GFR (MDRD) Af Amer 92, Est GFR (MDRD) Non-Af 76, BUN/Creatinine Ratio 18.5, Glucose 107 H, Calcium 9.2 Microbiology: Microbiology 06/29/23 02:00 Sputum, Expectorated/Coughed Gram Stain - Final 06/29/23 02:00 Sputum, Expectorated/Coughed Respiratory Culture - Preliminary Gram negative freya 06/28/23 Unknown Bronchial Lavage - Left Lower Lobe Gram Stain - Final 06/28/23 Unknown Bronchial Lavage - Left Lower Lobe Respiratory Culture - Preliminary Yeast Like Organism 06/29/23 02:14 Urine, Clean Catch Streptococcus pneumoniae Antigen (M - Final 06/29/23 02:14 Urine, Clean Catch Legionella Antigen - Final 06/28/23 14:50 Mucosa - Nose Respiratory Panel (PCR) - Final D/C Instructions Discharge Diet: Low fat / Low cholesterol Discharge Activity: Return to Normal Activity Return to work on: 07/01/23 Meaningful Use Info Meaningful Use Diagnoses (Choose all that apply): None applicable Discharge Plan Admission Admit Date/Time: 06/27/23 15:23 Primary Reason for Your Visit: Shortness of Breath Attending Provider: Maritza Carcamo Primary Care Provider: Tabitha Sandoval REFINISHER Consulting Providers: Paul Bower; Jose F Chang; Carlos Alberto Frausto; Mart Hernandez; Vera Lindo NP; Daniel Claire Instructions Additional Instructions / Restrictions: 1. Please complete prednisone burst and antibiotics as ordered 2. Call for appointment for pulmonary medicine follow-up as noted below 3. Please continue utilizing your incentive spirometer and Acapella at home aft er discharge every couple hours while awake 10 times for both 4. Highly encouraged ongoing smoking cessation 5. Please use 2 L of oxygen at rest and 3 L with exertion until instructed otherwise by a physician Discharge Orders/Prescriptions Prescriptions: New prednisone 20 mg tablet 40 mg PO DAILY Qty: 10 0RF levofloxacin 750 mg tablet 750 mg PO DAILY Qty: 5 0RF Continued lovastatin 40 mg tablet 80 mg PO QHS hydrocodone-acetaminophen [Agate] 7.5-325 mg tablet 1 tab PO Q6H PRN (Reason: pain) polyethylene glycol 3350 [Miralax] 17 gram/dose powder 17 g PO DAILY PRN (Reason: constipation) pramipexole 1 mg tablet 1 mg PO BID ipratropium-albuterol 0.5 mg-3 mg(2.5 mg base)/3 mL solution for nebulization 3 ml inhalation Q4H PRN PRN (Reason: SOB &/OR WHEEZING) Qty: 180 6RF gabapentin 400 mg capsule 400 mg PO TID Patient Comments: TAKE 1 CAPSULE BY MOUTH THREE TIMES DAILY FOR 90 DAYS furosemide 20 mg tablet 20 mg PO DAILY Patient Comments: Take 1 tablet by mouth once daily. docusate sodium 100 mg capsule 200 mg PO DAILY Patient Comments: TAKE 1 CAPSULE BY MOUTH 1 (ONE) or 2 (TWO) times a day NEEDED levothyroxine 100 mcg tablet 100 mcg PO DAILY Patient Comments: TAKE 1 TABLET BY MOUTH EVERY DAY montelukast 10 mg tablet 10 mg PO QHS Patient Comments: TAKE 1 TABLET BY MOUTH AT BEDTIME omeprazole 40 mg capsule,delayed release(DR/EC) 40 mg PO DAILY Patient Comments: Take 1 capsule by mouth once daily. potassium chloride 10 mEq tablet extended release 10 meq PO DAILY Skyrizi 150 mg/mL pen injector 150 mg SUBCUT .COMPLEX Rx Instructions: 150 mg subcutaneously every 3 months; Trelegy Ellipta 200-62.5-25 mcg blister with device 1 inh inhalation DAILY Qty: 60 6RF Discontinued levothyroxine [Synthroid] 75 mcg tablet See Rx Instructions PO QDAY Rx Instructions: 100 orally daily; ranitidine HCl [Zantac] 150 mg tablet 150 mg PO QDAY tizanidine [Zanaflex] 4 mg capsule 4 mg PO TID PRN (Reason: muscle spasticity) albuterol sulfate [Proventil HFA] 90 mcg/actuation HFA aerosol inhaler 2 puff INHALATION Q4H PRN (Reason: shortness of breath or wheezing) Qty: 18 11RF bupropion HCl [Wellbutrin SR] 150 mg tablet sustained-release 12 hr 150 mg PO BID Referrals / Follow Up: Paul Bower MD [Med Staff - Active Staff] - See Referral Note (Call tomorrow to schedule appointment to be seen within the next 2 weeks for hospital follow- up status post bronchoscopy) Tabitha Sandoval NP, REFINISHER-C [Primary Care Provider] - Within 1 Month Disposition Disposition (needs filled in before D/C Order can be placed): Home, Self Care Charges/Coding Visit Charges Inpatient E&M: 24498 Disch Hosp >30min
--- NOTE | 2023-06-30 11:02 | NURSING ---
[facility] notified of increased oxygen demands and prescription faxed.
[2023-07-01 12:16] LABS: Pathologist Comment/Body Fluid Reviewed
--- NOTE | 2023-07-01 12:22 | PCM.HOSP.N ---
Hospitalist Note Able to follow-up on her sputum cultures and she is growing Enterobacter cloacae in her sputum. Sensitive to quinolones and therefore should get satisfactory resolution with her Levaquin. Outpatient follow-up with pulmonary medicine as scheduled and pulmonary medicine physician notified of culture results.
== END 2023-06-30 12:17 | disposition home or self-care (01) | DRG 205 ==
PROVIDERS: Internal Medicine Critical Care Medicine; Admitting Provider Family Medicine; PCP Nurse Practitioner Family; Visit Provider Internal Medicine
PROC: 0BJ08ZZ Inspection of Tracheobronchial Tree, Via Natural or Artificial Opening Endoscopic (ICD-10-PCS; CPT 31622; principal; 2023-06-28 08:30)
DX: T17.890A Other foreign object in other parts of respiratory tract causing asphyxiation, initial encounter (principal); J96.21 Acute and chronic respiratory failure with hypoxia; J15.6 Pneumonia due to other Gram-negative bacteria; J44.0 Chronic obstructive pulmonary disease with (acute) lower respiratory infection; J98.11 Atelectasis; J44.9 Chronic obstructive pulmonary disease, unspecified; E03.9 Hypothyroidism, unspecified; I10 Essential (primary) hypertension; F17.210 Nicotine dependence, cigarettes, uncomplicated; E78.5 Hyperlipidemia, unspecified; K21.9 Gastro-esophageal reflux disease without esophagitis; L40.9 Psoriasis, unspecified; M54.16 Radiculopathy, lumbar region; J30.2 Other seasonal allergic rhinitis; G47.33 Obstructive sleep apnea (adult) (pediatric); G89.29 Other chronic pain; Z79.51 Long term (current) use of inhaled steroids; Z79.52 Long term (current) use of systemic steroids; Z71.6 Tobacco abuse counseling; Z79.891 Long term (current) use of opiate analgesic
CPT/HCPCS: 36415; 71045; 80048; 80053; 83735; 84100; 84145; 85025; 85610; 85730; 87015; 87070; 87077; 87116; 87186; 87205; 87206; 87252; 87449; 87633; 87641; 88108; 88305; 88312; 88313; 89050; 94002; 94003; 94640; 94668; 94762; 97162; 97165; 97530; J7050; J7120; A4216; J2405; J3490

== ENCOUNTER → 2023-10-03 | Outpatient (CLI) | payer MEDICARE, MEDICAID, SELFPAY ==
--- NOTE | 2023-10-03 06:38 | CT_ITS ---
EXAM: CT CHEST, LUNG CANCER SCREENING WITHOUT INTRAVENOUS CONTRAST CLINICAL INDICATION: smoker TECHNIQUE: Helically acquired images were obtained of the chest without intravenous contrast using low dose (LDCT) lung cancer screening protocol. This CT exam was performed using one or more of the following dose reduction techniques: automated exposure control, adjustment of the mA and/or kV according to patient size, and/or use of iterative reconstruction technique. COMPARISON: CT chest with contrast 06/27/2023, CT Lung Cancer Screening dated 10/01/2022 FINDINGS: LUNGS AND PLEURAL SPACES: The extensive emphysematous changes of the lungs again noted. Interval resolution of the bilateral lower lobe atelectasis noted on the most recent CT chest study. Residual 17 mm focal airspace opacification within the right lower lobe which may represent residual inflammatory or infectious change. Opacity does not have the appearance of a solid mass. No pleural effusion or thickening. HEART: Normal. Heart size is normal. No pericardial effusion. No significant coronary artery calcifications. MEDIASTINUM: Normal. No mediastinal or hilar adenopathy. Esophagus is unremarkable. No hiatal hernia. THYROID: Normal. No thyroid nodules or calcification. BONES/JOINTS: No suspicious lytic or blastic abnormality. VASCULATURE: Normal. Thoracic aorta is non-dilated. LYMPH NODES: Normal. No enlarged lymph nodes. CT/Low Dose CT Lung Screening IMPRESSION: Significant interval improvement in the bilateral lower lobe consolidation/atelectasis. Small residual pleural-parenchymal density right lung base which is likely resolving pneumonia. Lung-RADS score: 1S - Negative. Additional clinically significant or potentially clinically significant findings are described. Recommend continued annual screening with a low-dose CT (LDCT) in 12 months. Electronically Signed: Jacob Martinez MD at 9:47 EST ,
== END | disposition home or self-care (01) ==
PROVIDERS: PCP Nurse Practitioner Family; Referring Provider Nurse Practitioner Acute Care; Visit Provider Nurse Practitioner Acute Care
DX: F17.210 Nicotine dependence, cigarettes, uncomplicated (principal)
CPT/HCPCS: 71271

== ENCOUNTER → 2023-10-22 | Outpatient (CLI) | payer MEDICARE, MEDICAID, SELFPAY | END | disposition home or self-care (01) | LOC: LABSPEC 09:37 | PROVIDERS: PCP Nurse Practitioner Family; Referring Provider Nurse Practitioner Acute Care; Visit Provider Nurse Practitioner Acute Care | DX: R05.9 Cough, unspecified (principal) ==

== ENCOUNTER → 2024-02-20 | Outpatient (CLI) | payer MEDICARE, MEDICAID, SELFPAY | END | disposition home or self-care (01) | PROVIDERS: PCP Nurse Practitioner Family; Referring Provider Internal Medicine Critical Care Medicine; Visit Provider Internal Medicine Critical Care Medicine | DX: J96.11 Chronic respiratory failure with hypoxia (principal); J44.9 Chronic obstructive pulmonary disease, unspecified | CPT/HCPCS: 94060; 94726; 94729 ==

== ENCOUNTER → 2024-02-24 | Outpatient (CLI) | payer MEDICARE, MEDICAID, SELFPAY ==
[2024-02-24 12:37] VITALS: PULSE 102; PULSE 103; PULSE 104; PULSE 107; PULSE 95; PULSE 96; O2SAT 87; O2SAT 90; O2SAT 91; O2SAT 93; O2SAT 95
--- NOTE | 2024-02-24 12:40 | CPS ---
Patient wears 3 lpm O2 at home. Patient had been sitting on room air for 10+ minutes before starting test. SpO2 90-93%. Started walk on room air. SpO2 dropped to 87% at the 1st minute, patient rested and turned O2 on to home setting of 3 lpm for the remainder of the test.
--- NOTE | 2024-02-26 07:50 | WT_ITS ---
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 [employer] Assistive device used: Walker Pre-test Oxygen Delivery Method Room Air Pulse Ox 93 Pulse Rate (60-100) 95 Dyspnea Crystal Scale (0-10) 0.5 Exertion Crystal Scale (6-20) 6 1st minute Oxygen Delivery Method Room Air Pulse Ox 87 Pulse Rate (60-100) 107 H 2nd minute Oxygen Flow Rate (L/min) 3 Oxygen Delivery Method Nasal Cannula Pulse Ox 93 Pulse Rate (60-100) 102 H 3rd minute Oxygen Flow Rate (L/min) 3 Oxygen Delivery Method Nasal Cannula Pulse Ox 91 Pulse Rate (60-100) 103 H 4th minute Oxygen Flow Rate (L/min) 3 Oxygen Delivery Method Nasal Cannula Pulse Ox 90 Pulse Rate (60-100) 104 H 5th minute Oxygen Flow Rate (L/min) 3 Oxygen Delivery Method Nasal Cannula Pulse Ox 91 Pulse Rate (60-100) 96 6th minute Oxygen Flow Rate (L/min) 3 Oxygen Delivery Method Nasal Cannula Pulse Ox 90 Pulse Rate (60-100) 107 H Dyspnea Crystal Scale (0-10) 2 Exertion Crystal Scale (6-20) 14 Post-test Oxygen Flow Rate (L/min) 3 Oxygen Delivery Method Nasal Cannula Pulse Ox 95 Pulse Rate (60-100) 96 Full Laps Walked 10 Partial Lap, Number of Tiles Walked 38 Total Distance Walked (ft) 628 02/24/24 12:40 Cardiopulmonary Services by Dena Lovell Patient wears 3 lpm O2 at home. Patient had been sitting on room air for 10+ minutes before starting test. SpO2 90-93%. Started walk on room air. SpO2 dropped to 87% at the 1st minute, patient rested and turned O2 on to home setting of 3 lpm for the remainder of the test. Initialized on 02/24/24 12:40 - END OF NOTE Interpretation Interpretation: Patient ambulated 620 feet over the course of 6 minutes beginning on room air with use of a walker. Pretesting oxygen saturation was noted to be 93% on room air. With ambulation, the patient desaturated to 87%, requiring 3 L/min of supplemental oxygen to maintain appropriate saturations. Recommendations Recommendations: 3 L/min of supplemental oxygen should be utilized with exertion.
== END | disposition home or self-care (01) ==
LOC: PSN 12:10
PROVIDERS: PCP Nurse Practitioner Family; Referring Provider Internal Medicine Critical Care Medicine; Visit Provider Internal Medicine Critical Care Medicine
DX: J96.11 Chronic respiratory failure with hypoxia (principal); J44.9 Chronic obstructive pulmonary disease, unspecified
CPT/HCPCS: 94618

== ENCOUNTER → 2024-09-22 | Outpatient (CLI) | payer MEDICARE, MEDICAID, SELFPAY ==
[2024-09-22 08:15] VITALS: PULSE 100; PULSE 101; PULSE 83; PULSE 88; PULSE 98; PULSE 99; O2SAT 86; O2SAT 89; O2SAT 90; O2SAT 92; O2SAT 94
--- NOTE | 2024-09-23 12:22 | PCM.PSN.6M ---
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 Assistive device used: Walker Pre-test Oxygen Delivery Method Room Air Pulse Ox (%) 92 Pulse Rate (60-100 beats/min) 83 Dyspnea Crystal Scale (0-10) 1 1st minute Oxygen Delivery Method Room Air Pulse Ox (%) 86 Pulse Rate (60-100 beats/min) 98 Dyspnea Crystal Scale (0-10) 1 Number of Rests Taken 0 2nd minute Oxygen Flow Rate (L/min) (L/min) 2 Oxygen Delivery Method Nasal Cannula Pulse Ox (%) 89 Pulse Rate (60-100 beats/min) 100 Dyspnea Crystal Scale (0-10) 1 Number of Rests Taken 0 3rd minute Oxygen Flow Rate (L/min) (L/min) 2 Oxygen Delivery Method Nasal Cannula Pulse Ox (%) 89 Pulse Rate (60-100 beats/min) 101 H Dyspnea Crystal Scale (0-10) 2 Number of Rests Taken 0 4th minute Oxygen Flow Rate (L/min) (L/min) 2 Oxygen Delivery Method Nasal Cannula Pulse Ox (%) 90 Pulse Rate (60-100 beats/min) 101 H Dyspnea Crystal Scale (0-10) 2 Number of Rests Taken 0 5th minute Oxygen Flow Rate (L/min) (L/min) 2 Oxygen Delivery Method Nasal Cannula Pulse Ox (%) 90 Pulse Rate (60-100 beats/min) 99 Dyspnea Crystal Scale (0-10) 2 Number of Rests Taken 0 6th minute Oxygen Flow Rate (L/min) (L/min) 2 Oxygen Delivery Method Nasal Cannula Pulse Ox (%) 89 Pulse Rate (60-100 beats/min) 98 Dyspnea Crystal Scale (0-10) 3 Number of Rests Taken 0 Reported Symptoms Increased Work of Breathing Post-test Oxygen Flow Rate (L/min) (L/min) 2 Oxygen Delivery Method Nasal Cannula Pulse Ox (%) 94 Pulse Rate (60-100 beats/min) 88 Dyspnea Crystal Scale (0-10) 1 Full Laps Walked 11 Partial Lap, Number of Tiles Walked 37 Total Distance Walked (ft) 686 Interpretation Interpretation: The patient ambulated 686 feet over the course of 6 minutes beginning on room air with the use of a rollator. Pretesting oxygen saturation was noted to be 92% on room air. With ambulation, the phil oxygen saturation was 86%. 2 L/min of supplemental oxygen was applied, and the patient was able to complete the remainder of the testing while maintaining appropriate saturations. Recommendations Recommendations: 2 L/min of supplemental oxygen should be realized with exertion.
== END | disposition home or self-care (01) ==
LOC: PSN 07:54
PROVIDERS: PCP Nurse Practitioner Family; Referring Provider Nurse Practitioner Acute Care; Visit Provider Nurse Practitioner Acute Care
DX: J96.11 Chronic respiratory failure with hypoxia (principal)
CPT/HCPCS: 94618

== ENCOUNTER → 2024-10-06 | Outpatient (CLI) | payer MEDICARE, MEDICAID, SELFPAY ==
--- NOTE | 2024-10-06 07:46 | CT_ITS ---
STUDY: LOW DOSE CT LUNG CANCER SCREENING REASON FOR EXAM: Female, 59 years old. Current smoker. Patient smokes 1 pack per day. Emphysema. RADIATION DOSAGE (If Supplied By Facility): CTDIvol = ( 4.02 ) mGy, DLP = ( 129.89 ) mGycm TECHNIQUE: No contrast was administered. Low dose technique was utilized (average mAS-38 and kVp 120). 1.25 mm axial source images with a slice interval of 1.25-mm were reconstructed in lung windows. 2.5 mm axial source images with a slice interval of 2.5-mm were reconstructed in lung windows. 5.0 mm axial source images with a slice interval of 5.0-mm were reconstructed in soft tissue windows. COMPARISON: Comparison is made with prior study dated October 03, 2023. NODULES: No suspicious nodular densities are seen. Emphysema: Diffuse emphysematous changes worse in the upper lobes with multiple bleb formation. Stable scarring in the posterior aspect of the left upper lobe as well as in the lower lobes. Endobronchial lesion: None Aorta: Atherosclerotic calcific plaques. CORONARY ARTERIES: Coronary artery calcification is seen. Heart: Unremarkable Pulmonary artery: Unremarkable Mediastinal nodes: Unremarkable Other chest and abdominal findings: CT/Low Dose CT Lung Screening IMPRESSION: Lung-RADS category 2 - Continue annual screening with LDCT in 12 months. IMPORTANT NOTES FOR USE: ACR Lung-RADS Version 1.1 Assessment Categories Release Date: 2018 Category: Coded 0-4 bases on nodule(s) with highest degree of suspicion. Negative screen is defined as categories 1 and 2; a positive screen is defined as categories 3 and 4. Category 3 and 4A nodules that are unchanged on interval CT should be coded as category 2, and individuals returned to screening in 12 months. Category 4X: Category 3 or 4 nodules with additional imaging findings that increase the suspicion of lung cancer, such as spiculation, GGN that doubles in size in 1 year, enlarged lymph notes, etc. Category Modifiers: S (significant finding unrelated to lung cancer) Electronically Signed: Kevin Silva MD at 13:57 EST ,
== END | disposition home or self-care (01) ==
LOC: CT 07:46
PROVIDERS: PCP Nurse Practitioner Family; Referring Provider Internal Medicine; Visit Provider Internal Medicine
DX: F17.210 Nicotine dependence, cigarettes, uncomplicated (principal)
CPT/HCPCS: 71271

== ENCOUNTER 2025-03-17 07:24 | Inpatient (IN) | payer MEDICARE, MEDICAID, SELFPAY ==
[2025-03-17] VITALS (18 sets, daily range): BP systolic 114–130; BP diastolic 65–84; PULSE 74–108; RESP 14–25; TEMP 36.6–37.2; O2SAT 89–95; BMI 33.1; BMI 32.8
--- NOTE | 2025-03-17 07:36 | EKG12_ITS ---
Test Reason : SOB Blood Pressure : */* mmHG Vent. Rate : 102 BPM Atrial Rate : 102 BPM P-R Int : 202 ms QRS Dur : 96 ms QT Int : 370 ms P-R-T Axes : 32 -23 52 degrees QTcB Int : 482 ms Sinus tachycardia Septal infarct , age undetermined Abnormal ECG Confirmed by HANNAH WASHBURN, LEONA ([id number]), graphic editor STEVEN LAMBERT ([id number]) on 03/18/2025 1:25:00 PM Referred By: Confirmed By: LEONA YOUNG MD
--- NOTE | 2025-03-17 07:43 | ED.VIS.DYS ---
HPI History of Present Illness Chief Complaint: Shortness of Breath Narrative Narrative: Chief complaint and HPI: History taken by patient as well as medical record. 59-year-old female with past medical history of COPD, tobacco abuse, HLD presents for evaluation of shortness of breath. Patient recently saw pulmonology on 03/02/2025. Per their office note she was placed on Wellbutrin for smoking cessation as well as placed on trilogy and taken off of Breztri. Patient states that she woke up overnight with shortness of breath. She has taken DuoNebs with little improvement. She denies any fever, chills, URI symptoms, chest pain, abdominal pain, nausea, vomiting. States she has some chest tightness when she takes a deep breath then. Denies a history of DVT/PE, blood clotting disorder, recent trauma or surgery, exogenous estrogen use, unilateral leg swelling, known malignancy, travel. Review of systems: See HPI Medications: As listed on the chart Allergies: As listed on the chart PFSH: Per chart Vital signs: As listed on the chart. Reviewed. Physical exam: Gen: A&O x3, NAD Head: Normocephalic, atraumatic Eyes: No sclera icterus, conjunctiva clear ENT: Moist mucous membranes Neck: Trachea midline, No JVD CV: Tachycardic, regular rhythm, no murmurs, no peripheral edema Resp: Lungs diminished in the bilateral bases with expiratory wheezing, on 5 L nasal cannula GI: Abd soft, non-distended, non-tender, no r/r/g Musc: Full ROM, no deformity Skin: Warm, dry Neuro: Alert, oriented, grossly intact, sensation intact Psych: Cooperative, appropriate mood and affect [facility] Medical History On home oxygen therapy Smoker Moderate COPD (chronic obstructive pulmonary disease) Urinary incontinence Thyroid nodule Suprapubic pain Spinal stenosis in cervical region Pneumothorax of left lung after biopsy 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 (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) drug therapy Lumbar radiculopathy Hyperlipidemia Heavy tobacco smoker Chronic headaches GERD (gastroesophageal reflux disease) Frontal lobe deficit Essential hypertension Dysuria Dyspnea Dyslipidemia DDD (degenerative disc disease) Cough Confusional state Chronic pain Chronic obstructive lung disease Bronchospasm Brachial (cervical) neuritis Back pain Aortic valve regurgitation Acute bronchitis Hypothyroidism Abnormal CT scan, chest Home Medications ?Medication ?Instructions ?Recorded ?Last Taken ?Type lovastatin 40 mg tablet 80 mg PO QHS 06/19/18 03/16/25 History pramipexole 1 mg tablet 1 mg PO BID 09/19/20 03/17/25 History ipratropium 0.5 mg-albuterol 3 mg 3 ml inhalation Q4H PRN PRN SOB 12/18/22 03/17/25 Rx (2.5 mg base)/3 mL nebulization &/OR WHEEZING #180 mL soln docusate sodium 100 mg capsule 200 mg PO DAILY 06/27/23 03/16/25 History gabapentin 400 mg capsule 400 mg PO TID 06/27/23 03/17/25 History montelukast 10 mg tablet 10 mg PO QHS 06/27/23 03/16/25 History furosemide 40 mg tablet 40 mg PO QDAY 03/13/24 03/17/25 History metformin 500 mg tablet 500 mg PO BID 11/02/24 03/17/25 History albuterol sulfate 90 mcg/actuation 2 inh inhalation Q4-6H PRN 03/02/25 Unknown Rx aerosol inhaler shortness of breath or wheezing #8.5 grams bupropion HCl 150 mg tablet,12 hr 150 mg PO BID #60 ea 03/02/25 03/17/25 Rx sustained-release (Wellbutrin SR) fluticasone fur. 100 mcg-umeclid 1 inh inhalation Q24H #60 ea 03/02/25 03/17/25 Rx 62.5 mcg-vilant 25 mcg inhalat.powder (Trelegy Ellipta) hydrocodone-acetaminophen 5-325mg 1 tab PO DAILY PRN pain 03/02/25 03/17/25 History 5mg-325mg aspirin 81 mg tablet,delayed 81 mg PO DAILY 03/17/25 03/17/25 History release (Adult Aspirin Regimen) conjugated estrogens 0.625 mg/gram 0.625 mg vaginal QWEEK 03/17/25 Unknown History vaginal cream (Premarin) lansoprazole 30 mg capsule,delayed 30 mg PO DAILY 03/17/25 03/17/25 History release levothyroxine 125 mcg tablet 125 mcg PO DAILY 03/17/25 03/17/25 History omega 3-gme-ugt-fish oil 300 1 cap PO BID 03/17/25 03/17/25 History mg-1,000 mg capsule (Fish Oil) Allergy/AdvReac Type Severity Reaction Status Date / Time ciprofloxacin Allergy Mild severe Verified 03/02/25 08:05 upset GI clarithromycin Allergy Mild severe Verified 03/02/25 08:05 upset GI fenofibrate Allergy Mild Verified 03/02/25 08:05 nabumetone Allergy Mild Verified 03/02/25 08:05 oxybutynin Allergy Mild Verified 03/02/25 08:05 Sulfa (Sulfonamide Allergy Mild Verified 03/02/25 08:05 Antibiotics) fesoterodine (From Toviaz) AdvReac Mild Other Verified 03/02/25 08:05 Family History Mother Cancer Lung Heart disease CVA (cerebral vascular accident) Father COPD (chronic obstructive pulmonary disease) Brother Diabetes Kidney disease Surgical History History of lung biopsy History of hysterectomy Social History Smoking Status: Current every day smoker tobacco type: cigarettes Tobacco: How many years used: 50 second hand exposure: Yes alcohol intake: never substance use type: does not use caffeine: Yes Type: coffee what type of physical activity do you participate in: other frequency: daily EXAM Physical Exam Const Vital Signs: 03/17/25 07:31 03/17/25 07:36 03/17/25 07:38 Temperature 98.9 F 98.9 F Temperature Source Oral Oral Pulse Rate 103 H 101 H Respiratory Rate 18 21 H Respiratory Effort Short of Breath Respiratory Depth Normal Respiratory Pattern Tachypnea Blood Pressure 114/84 H 114/84 H Blood Pressure Mean 94 94 Pulse Ox 95 95 Oxygen Delivery Method Nasal Cannula Nasal Cannula Nasal Cannula Oxygen Flow Rate (L/min) 5 5 5 03/17/25 07:38 03/17/25 07:45 03/17/25 07:45 Temperature Temperature Source Pulse Rate 104 H Respiratory Rate 24 H Respiratory Effort Respiratory Depth Respiratory Pattern Tachypnea Blood Pressure Blood Pressure Mean Pulse Ox 95 Oxygen Delivery Method Nasal Cannula Nasal Cannula Oxygen Flow Rate (L/min) 5 5 03/17/25 07:55 03/17/25 08:25 03/17/25 08:35 Temperature 98.6 F Temperature Source Temporal Pulse Rate 98 78 94 Respiratory Rate 22 H 22 H 20 H Respiratory Effort Respiratory Depth Respiratory Pattern Blood Pressure 127/76 H 124/78 H 124/66 H Blood Pressure Mean 93 93 85 Pulse Ox 91 91 92 Oxygen Delivery Method Nasal Cannula Nasal Cannula Nasal Cannula Oxygen Flow Rate (L/min) 2 3 03/17/25 09:00 03/17/25 10:00 Temperature 98.9 F 98.7 F Temperature Source Oral Oral Pulse Rate 95 92 Respiratory Rate 18 22 H Respiratory Effort Respiratory Depth Respiratory Pattern Blood Pressure 128/73 H 115/72 Blood Pressure Mean 91 86 Pulse Ox 90 89 Oxygen Delivery Method Nasal Cannula Nasal Cannula Oxygen Flow Rate (L/min) 3 3 MDM MDM MDM Narrative Medical decision making narrative: 59-year-old female with past medical history of COPD, tobacco abuse, HLD presents for evaluation of shortness of breath. Patient recently saw pulmonology on 03/02/2025. See HPI. Patient recently had her medications changed. Woke up this morning with shortness of breath. Differential diagnosis includes but is not limited to COPD exacerbation, pneumonia, viral illness, PE, ACS. 500 cc NS bolus, Solu-Medrol, DuoNebs ordered for symptoms. Laboratory workup ordered. On presentation, patient is needing increased oxygen requirements. Usually on 2-3 L nasal cannula chronically however requiring 5 L nasal cannula given being 80% on 3 L. She is intermittently tachypneic and mildly tachycardic. VBG with metabolic alkalosis. No hypercapnia. Will titrate oxygen down as able. CBC with mild leukocytosis of 12.7 and hemoconcentration. Platelets unremarkable. D-dimer elevated at 1.02. CTA chest ordered to assess for PE. COVID, flu, RSV negative. BMP unremarkable. Lactic acid unremarkable. CTA negative for PE. Patient has virtually complete left lower lobe consolidation/collapse. Preserved enhancement suggest the absence of superimposed significant pneumonia or pneumonitis although early pneumonia is difficult to entirely exclude. Given mucus impacted bronchi in the region, consider aspiration. Borderline right hilar lymphadenopathy nonspecific and potentially reactive in the absence of known malignancy. On chart review, patient has a history of mucous plug in the past in which she required bronchoscopy on 06/28/2023. On chart review this was in the left lower lobe as well. On reevaluation, patient still endorsing shortness of breath however her work of breathing has improved. She was able to be placed back on her baseline 3 L nasal cannula. However given CTA findings, patient will benefit from bronchoscopy. She will be given Unasyn for possible aspiration from the plug. I spoke with the hospitalist service, Dr. Murphy. He recommended me talking to pulmonology prior to admission to make sure that patient will receive bronchoscopy. I spoke with survey interviewer, agrees with admission and bronchoscopy. Patient will be admitted to the hospitalist service. Patient updated of all results and confirmed understanding of the plan. EKG: Interpreted by me/EM physician: EKG shows sinus tachycardia with nonspecific ST changes. No ST elevation. Heart rate 102. Diagnostic: Interpreted by me/EM physician: Chest x-ray shows vascular congestion. Chronic lung changes with atelectasis/pneumonia of the left lung base. Impression: 1. Acute on chronic hypoxia 2. Complete left lower lobe consolidation/collapse, suspect mucous plug 3. Possible aspiration pneumonia 4. COPD exacerbation Lab Data Labs: Laboratory Results - last 24 hr 03/17/25 07:45 WBC 12.7 H RBC 5.12 Hgb 15.4 H Hct 46.4 MCV 90.6 MCH 30.1 MCHC 33.2 RDW Std Deviation 53.3 H RDW Coeff of Brandy 16.0 H Plt Count 243 MPV 11.3 Immature Gran % (Auto) 0.700 Neut % (Auto) 75.7 H Lymph % (Auto) 17.[address] % (Auto) 4.5 Eos % (Auto) 1.3 Baso % (Auto) 0.7 Absolute Neuts (auto) 9.6 H Absolute Lymphs (auto) 2.17 Nucleated RBC % 0 D-Dimer Quant (PE/DVT) 1.02 H* Sodium 140 Potassium 3.9 Chloride 101 Carbon Dioxide 25.3 Anion Gap 14 BUN 13 Creatinine 0.80 Estim Creat Clear Calc 84.94 Est GFR (MDRD) Non-Af 84 BUN/Creatinine Ratio 16.6 Glucose 111 H Lactic Acid 1.9 Calcium 9.6 Troponin T High Sens < 6 NT pro BNP II < 36 ABG Data ABG results: ABG 03/17/25 07:54 Specimen Type DEEPALI Sample Site Not entered O2 % 5.0 VBG pH 7.44 H VBG pO2 48 H VBG HCO3 27 H VBG Total CO2 28 VBG O2 Sat (Calc) 85 H VBG Base Excess 3 POC Mix VBG pCO2 Pt Tmp 38.9 L O2 Delivery Device Cannula Radiography Diagnostic Testing: Clinical Impression(s) from Imaging Studies Chest X-Ray 03/17/25 08:05 IMPRESSION: There is mild cardiomegaly. Central vascularity appears increased. There is consolidation in the left medial lung base, retrocardiac region. [facility] Chest CTA 03/17/25 08:26 IMPRESSION: 1. No central or definite pulmonary embolism identified allowing for limitations related to contrast timing. 2. Virtually complete LEFT lower lobar consolidation/collapse. Preserved enhancement suggests the absence of superimposed significant pneumonia/pneumonitis although early pneumonia is difficult to entirely exclude. Given mucous impacted bronchi in the region, consider aspiration. Recommend CT chest in 3 months to ensure no underlying central obstructing process as an alternative etiology. Additionally, recommend ongoing lung cancer screening per the below. 3. Borderline RIGHT hilar lymphadenopathy, nonspecific and potentially reactive in the absence of known malignancy. Attention on above follow-up, which should ideally include IV contrast. 4. Additional description as above. The USPSTF recommends annual screening for lung cancer with low-dose computed tomography (LDCT) in adults aged 50 to 80 years who have a 20 pack-year smoking history and currently smoke or have quit within the past 15 years. Reading Location: [facility] Discharge Plan Triage Chief Complaint: Shortness of Breath ED Provider: Wayne Waterman Dx/Rx/DC Orders Prescriptions: No Action lovastatin 40 mg tablet 80 mg PO QHS pramipexole 1 mg tablet 1 mg PO BID ipratropium-albuterol 0.5 mg-3 mg(2.5 mg base)/3 mL solution for nebulization 3 ml inhalation Q4H PRN PRN (Reason: SOB &/OR WHEEZING) Qty: 180 6RF furosemide 40 mg tablet 40 mg PO QDAY metformin 500 mg tablet 500 mg PO BID hydrocodone-acetaminophen 5-325 mg tablet 1 tab PO DAILY PRN (Reason: pain) Trelegy Ellipta 100-62.5-25 mcg blister with device 1 inh inhalation Q24H Qty: 60 5RF albuterol sulfate 90 mcg/actuation HFA aerosol inhaler 2 inh inhalation Q4-6H PRN (Reason: shortness of breath or wheezing) Qty: 8.5 5RF bupropion HCl [Wellbutrin SR] 150 mg tablet sustained-release 12 hr 150 mg PO BID Qty: 60 6RF gabapentin 400 mg capsule 400 mg PO TID Patient Comments: TAKE 1 CAPSULE BY MOUTH THREE TIMES DAILY FOR 90 DAYS docusate sodium 100 mg capsule 200 mg PO DAILY Patient Comments: TAKE 1 CAPSULE BY MOUTH 1 (ONE) or 2 (TWO) times a day NEEDED montelukast 10 mg tablet 10 mg PO QHS Patient Comments: TAKE 1 TABLET BY MOUTH AT BEDTIME Premarin 0.625 mg/gram cream 0.625 mg vaginal QWEEK Patient Comments: pt has not started yet levothyroxine 125 mcg tablet 125 mcg PO DAILY lansoprazole 30 mg capsule,delayed release(DR/EC) 30 mg PO DAILY aspirin [Adult Aspirin Regimen] 81 mg tablet,delayed release (DR/EC) 81 mg PO DAILY omega 6-aba-une-fish oil [Fish Oil] 300-1,000 mg capsule 1 cap PO BID Primary Care Provider: Tabitha Sandoval NP Referrals: Tabitha Sandoval NP, [facility] [Primary Care Provider] - Print Language: Arabic
[2025-03-17] MEDS: Ipratropium/Albuterol Sulfate 3 ML AMPUL.NEB 9 ML INHALATION (07:47)
[2025-03-17] MEDS: 0.9% Normal Saline (500mL Bag) 500 ML 999 ML IV (07:51)
[2025-03-17] MEDS: MethylPREDNISolone 125 MG/2 ML Vial IV (07:51)
[2025-03-17 07:58] LABS: Blood Gas Specimen Type VEN; O2 Delivery Device Cannula; SITE Not entered; VBG BASE EXCESS 3 mmol/L (-1.0-3.5); VBG Bicarbonate 27 mmol/L (22-26); VBG PO2 48 mmHg (25-40); VBG SO2 85 % (50-70); VBG TCO2 28 mmol/L (23-33); VBG pCO2 38.9 mmHg (41-51); VBG pH 7.44 (7.32-7.42)
[2025-03-17 08:05] LABS: Absolute Lymphocyte Count 2.17 X10^3/uL (0.83-4.51); Absolute Neutrophil Count 9.6 X10^3/uL (2.0-7.7); Basophil# 0.09 X10^3/uL; Basophil% 0.7 % (0-1); Eosinophil# 0.17 X10^3/uL; Eosinophils% 1.3 % (0-5); Hematocrit 46.4 % (37-47); Hemoglobin 15.4 g/dL (12.0-15.0); Lymphocyte # 2.17 X10^3/ul (0.83-4.51); Lymphocyte % 17.1 % (19-41); Mean Corp Hgb Conc 33.2 g/dL (32-36); Mean Corpuscular Hgb 30.1 pg (27.0-32.0); Mean Corpuscular Volume 90.6 fL (81-99); Mean Platelet Vol. 11.3 fl (6.2-12.0); Monocyte# 0.57 X10^3/uL; Monocyte% 4.5 % (0-10); NRBC Flagged by Analyzer 0 % (0-5); Neutrophil # 9.57 X10^3/uL (2.7-7.7); Neutrophil % 75.7 % (47-70); Platelet Count 243 K/mm3 (150-450); RBC Distribution Width SD 53.3 fl (35.1-43.9); Red Blood Count 5.12 M/mm3 (4.2-5.4); White Blood Count 12.7 K/mm3 (4.4-11.0)
--- NOTE | 2025-03-17 08:05 | RAD_ITS ---
PROCEDURE: CHEST PA AND LATERAL 03/17/2025 REASON FOR EXAM: SHORTNESS OF BREATH TECHNIQUE: Frontal and lateral views of the chest. COMPARISON: June 28, 2023 FINDINGS: There is mild cardiomegaly. Central vascularity appears increased. There is consolidation in the left medial lung base, retrocardiac region. There is no pneumothorax. There is no definite effusion. There is no visible acute bony abnormality. Aortic calcifications are visible. Hardware is noted in the cervical spine. RAD/Chest PA and Lateral IMPRESSION: There is mild cardiomegaly. Central vascularity appears increased. There is consolidation in the left medial lung base, retrocardiac region. Reading Location: [facility]
[2025-03-17 08:25] LABS: D-Dimer Quantitative (DVT/PE) 1.02 FEU/ug/m (0.27-0.49)
--- NOTE | 2025-03-17 08:26 | CT_ITS ---
PROCEDURE: CTA CHEST W/WO CONTRAST 03/17/2025 REASON FOR EXAM: ASSESS FOR PE, SOB TECHNIQUE: CTA chest was performed with IV contrast. Multiplanar reformats and MIP reconstructions were generated. PATIENT PREPARATION: Per protocol CONTRAST: Isovue 370 VOLUME: 100 mL Gauge IV One or more dose reduction techniques were used (e.g., Automated exposure control, adjustment of the mA and/or kV according to patient size, use of iterative reconstruction technique). RADIATION DOSE SUMMARY: CTDlvol: 7.12+ 13.41 mGy DLP: 447.98 mGycm COMPARISON: 10/06/2024 FINDINGS: Sensitivity for pulmonary embolus limited by suboptimal opacification of the pulmonary arterial tree to 216 Hounsfield units as compared with 292 Hounsfield units in the pulmonary veins. Heart/pericardium: Trace aortic annular calcification.. Aorta: Moderate largely soft atherosclerotic plaque.. Pulmonary arteries: Normal in caliber. No central or definite pulmonary embolism is identified. Lymph nodes: Borderline RIGHT hilar node, 14 mm short axis.. Lungs/pleura: Severe emphysema. Biapical pleural/parenchymal scarring. Elevated LEFT hemidiaphragm with virtually complete LEFT lower lobar consolidation/collapse with preserved enhancement. Mucus impacted bronchi in the region. Additional irregular airspace disease in the lingula and RIGHT lower lobe may in part reflect atelectasis/scarring. RIGHT middle lobes up to 6 x 4 mm are unchanged (series 2, image 84 and 86). Similar vaguely nodular irregular opacity along the superior aspect of the of the oblique fissure on the LEFT measuring 2.5 x 1.3 cm which could reflect scarring (image 174). Airways: As above.. Chest wall: Unremarkable. Upper abdomen: Suspected advanced potentially ulcerative soft atherosclerotic plaque within the minimally imaged abdominal aorta. Musculoskeletal: Mild spondylosis. Thoracic levoscoliosis. Partially imaged ACDF.. CT/CTA Chest W/WO Contrast IMPRESSION: 1. No central or definite pulmonary embolism identified allowing for limitation s related to contrast timing. 2. Virtually complete LEFT lower lobar consolidation/collapse. Preserved enhan cement suggests the absence of superimposed significant pneumonia/pneumonitis although early pneumonia is difficult to enti rely exclude. Given mucous impacted bronchi in the region, consider aspiration. Recommend CT chest in 3 months to ensure no u nderlying central obstructing process as an alternative etiology. Additionally, recommend ongoing lung cancer screening pe r the below. 3. Borderline RIGHT hilar lymphadenopathy, nonspecific and potentially reactive in the absence of known malignancy. Attention on above follow-up, which should ideally include IV contrast. 4. Additional description as above. The USPSTF recommends annual screening for lung cancer with low-dose computed t omography (LDCT) in adults aged 50 to 80 years who have a 20 pack-year smoking history and currently smoke or have quit within the past 15 years. Reading Location: [id number]
[2025-03-17 08:58] LABS: Anion Gap 14 (5-15); BUN 13 mg/dL (4-19); BUN/Creat Ratio 16.6 RATIO (10-20); Calcium,Total 9.6 mg/dL (7.6-11.0); Carbon Dioxide 25.3 mmol/L (21.0-32.0); Chloride 101 mmol/L (98-108); EST Glomerular Filtration Rate 84 (>60); Estimated Creatinine Clearance 84.94 ml/min (50-250); Glucose 111 mg/dL (70-99); Lactic Acid 1.9 mmol/L (0.0-2.0); Potassium 3.9 mmol/L (3.3-5.1); Sodium Level 140 mmol/L (133-145)
[2025-03-17] MEDS: Ampicillin/Sulbactam 3 GM in 0.9% Normal Saline (100mL MB+) 100 ML IV (09:54)
--- NOTE | 2025-03-17 10:14 | PCM.HP.STD ---
HPI - General General Date of Admission: 03/17/25 Date of Service: 03/17/25 Chief Complaint: Acute shortness of breath HPI Narrative ARIES SIMON, is a 59 F who presented to [facility] ED on 03/17/2025 with acute onset shortness of breath. Patient has history of COPD with emphysema and chronic respiratory failure, wears supplemental oxygen at baseline. Follows with Dr. Chang with pulmonology. She was hospitalized here back in June 2024 for similar presentation and was found to have left lower lobe atelectasis suspected secondary to mucous plugging with pneumonia. She underwent bronchoscopy then with significant mucous plugging relief and she was much improved post bronchoscopy. Patient states she had been doing well recently. Overnight she developed acute onset shortness of breath and came in for further evaluation. CTA chest showed a virtually complete left lower lobe consolidation/collapse concerning for recurrent mucous plugging versus pneumonia. ED physician discussed with Dr. Chang who recommended patient be admitted for further evaluation and likely bronchoscopy. Hospitalist was then contacted for admission. I saw the patient at bedside in the ED. Patient was mildly fatigued appearing but otherwise sitting up in bed and breathing comfortably on 3 L nasal cannula at rest. This is her baseline level of oxygen. Patient states that she does feel improved now compared to overnight but still not back to her baseline. She denies any fevers or chills. She is feeling hungry and is hoping to eat soon. She denies any cough or sputum production. No other acute concerns at this time. [facility] Medical History On home oxygen therapy Smoker Moderate COPD (chronic obstructive pulmonary disease) Urinary incontinence Thyroid nodule Suprapubic pain Spinal stenosis in cervical region Pneumothorax of left lung after biopsy Other custodial (current) drug therapy Lumbar radiculopathy Hyperlipidemia Heavy tobacco smoker Chronic headaches GERD (gastroesophageal reflux disease) Frontal lobe deficit Essential hypertension Dysuria Dyspnea Dyslipidemia DDD (degenerative disc disease) Cough Confusional state Chronic pain Chronic obstructive lung disease Bronchospasm Brachial (cervical) neuritis Back pain Aortic valve regurgitation Acute bronchitis Hypothyroidism Abnormal CT scan, chest Home Medications ?Medication ?Instructions ?Recorded ?Last Taken ?Type lovastatin 40 mg tablet 80 mg PO QHS 06/19/18 03/16/25 History pramipexole 1 mg tablet 1 mg PO BID 09/19/20 03/17/25 History ipratropium 0.5 mg-albuterol 3 mg 3 ml inhalation Q4H PRN PRN SOB 12/18/22 03/17/25 Rx (2.5 mg base)/3 mL nebulization &/OR WHEEZING #180 mL soln docusate sodium 100 mg capsule 200 mg PO DAILY 06/27/23 03/16/25 History gabapentin 400 mg capsule 400 mg PO TID 06/27/23 03/17/25 History montelukast 10 mg tablet 10 mg PO QHS 06/27/23 03/16/25 History furosemide 40 mg tablet 40 mg PO QDAY 03/13/24 03/17/25 History metformin 500 mg tablet 500 mg PO BID 11/02/24 03/17/25 History albuterol sulfate 90 mcg/actuation 2 inh inhalation Q4-6H PRN 03/02/25 Unknown Rx aerosol inhaler shortness of breath or wheezing #8.5 grams bupropion HCl 150 mg tablet,12 hr 150 mg PO BID #60 ea 03/02/25 03/17/25 Rx sustained-release (Wellbutrin SR) fluticasone fur. 100 mcg-umeclid 1 inh inhalation Q24H #60 ea 03/02/25 03/17/25 Rx 62.5 mcg-vilant 25 mcg inhalat.powder (Trelegy Ellipta) hydrocodone-acetaminophen 5-325mg 1 tab PO DAILY PRN pain 03/02/25 03/17/25 History 5mg-325mg aspirin 81 mg tablet,delayed 81 mg PO DAILY 03/17/25 03/17/25 History release (Adult Aspirin Regimen) conjugated estrogens 0.625 mg/gram 0.625 mg vaginal QWEEK 03/17/25 Unknown History vaginal cream (Premarin) lansoprazole 30 mg capsule,delayed 30 mg PO DAILY 03/17/25 03/17/25 History release levothyroxine 125 mcg tablet 125 mcg PO DAILY 03/17/25 03/17/25 History omega 7-jhk-bef-fish oil 300 1 cap PO BID 03/17/25 03/17/25 History mg-1,000 mg capsule (Fish Oil) Allergy/AdvReac Type Severity Reaction Status Date / Time ciprofloxacin Allergy Mild severe Verified 03/02/25 08:05 upset GI clarithromycin Allergy Mild severe Verified 03/02/25 08:05 upset GI fenofibrate Allergy Mild Verified 03/02/25 08:05 nabumetone Allergy Mild Verified 03/02/25 08:05 oxybutynin Allergy Mild Verified 03/02/25 08:05 Sulfa (Sulfonamide Allergy Mild Verified 03/02/25 08:05 Antibiotics) fesoterodine (From Toviaz) AdvReac Mild Other Verified 03/02/25 08:05 Family History Mother Cancer Lung Heart disease CVA (cerebral vascular accident) Father COPD (chronic obstructive pulmonary disease) Brother Diabetes Kidney disease Surgical History History of lung biopsy History of hysterectomy Social History Smoking Status: Current every day smoker tobacco type: cigarettes Tobacco: How many years used: 50 second hand exposure: Yes alcohol intake: never substance use type: does not use caffeine: Yes Type: coffee what type of physical activity do you participate in: other frequency: daily ROS Constitutional Constitutional: Reports fatigue; Denies chills, fever(s) or weakness Eyes Eyes: Denies change in vision Cardiovascular Cardiovascular: Denies chest pain Respiratory/Chest Respiratory/Chest: Reports cough and shortness of breath at rest; Denies productive cough, shortness of breath with exertion or wheezing Gastrointestinal Gastrointestinal: Denies abdominal pain Musculoskeletal Musculoskeletal: Denies arthralgias or myalgias Vital Signs Vital Signs Vital Signs: 03/17/25 07:31 03/17/25 07:36 03/17/25 07:38 Temperature 98.9 F 98.9 F Temperature Source Oral Oral Pulse Rate 103 H 101 H Respiratory Rate 18 21 H Respiratory Effort Short of Breath Respiratory Depth Normal Respiratory Pattern Tachypnea Blood Pressure 114/84 H 114/84 H Blood Pressure Mean 94 94 Pulse Ox 95 95 Oxygen Delivery Method Nasal Cannula Nasal Cannula Nasal Cannula Oxygen Flow Rate (L/min) 5 5 5 03/17/25 07:38 03/17/25 07:45 03/17/25 07:45 Temperature Temperature Source Pulse Rate 104 H Respiratory Rate 24 H Respiratory Effort Respiratory Depth Respiratory Pattern Tachypnea Blood Pressure Blood Pressure Mean Pulse Ox 95 Oxygen Delivery Method Nasal Cannula Nasal Cannula Oxygen Flow Rate (L/min) 5 5 03/17/25 07:55 04/30/25 08:25 03/17/25 08:35 Temperature 98.6 F Temperature Source Temporal Pulse Rate 98 78 94 Respiratory Rate 22 H 22 H 20 H Respiratory Effort Respiratory Depth Respiratory Pattern Blood Pressure 127/76 H 124/78 H 124/66 H Blood Pressure Mean 93 93 85 Pulse Ox 91 91 92 Oxygen Delivery Method Nasal Cannula Nasal Cannula Nasal Cannula Oxygen Flow Rate (L/min) 2 3 03/17/25 09:00 03/17/25 10:00 Temperature 98.9 F 98.7 F Temperature Source Oral Oral Pulse Rate 95 92 Respiratory Rate 18 22 H Respiratory Effort Respiratory Depth Respiratory Pattern Blood Pressure 128/73 H 115/72 Blood Pressure Mean 91 86 Pulse Ox 90 89 Oxygen Delivery Method Nasal Cannula Nasal Cannula Oxygen Flow Rate (L/min) 3 3 Weight Weight: 93.2 kg Body Mass Index (BMI) 33.1 Physical Exam Const alert, oriented x3 and no apparent distress Constitutional Narrative: Upper middle-aged female, class I obesity, appears older than stated age, mildly fatigued appearing but otherwise sitting up comfortably in bed, conversing normally, in no acute distress. General Appearance: cooperative and comfortable HEENT normocephalic, head/scalp atraumatic, hearing grossly normal bilaterally, nasal mucous membranes and turbinates normal and moist oral mucous membranes Eyes PERRL, EOMs intact bilaterally and conjunctivae normal Neck full ROM Chest inspection of chest normal Resp normal respiratory effort and no use of accessory muscles Resp Narrative: Breathing comfortably on 3 L nasal cannula at rest. Significantly reduced breath sounds in the left lung base, otherwise mildly reduced breath sounds bilaterally throughout with no wheezing or crackles noted. Cardio regular rate, regular rhythm, no murmurs and peripheral pulses 2+ throughout GI normal to inspection, nondistended, normoactive bowel sounds, soft to palpation, non-tender and non-distended Back/Spine normal ROM Extremity normal to inspection, full ROM and no pedal edema Skin no rashes or lesions noted Psych mental status grossly normal Mood & Affect: anxious Results Lab / Micro Data 03/17/25 07:45 03/17/25 07:45 Labs: Laboratory Results - last 24 hr 03/17/25 07:45: WBC 12.7 H, RBC 5.12, Hgb 15.4 H, Hct 46.4, MCV 90.6, MCH 30.1, MCHC 33.2, RDW Std Deviation 53.3 H, RDW Coeff of Branyd 16.0 H, Plt Count 243, MPV 11.3, Immature Gran % (Auto) 0.700, Neut % (Auto) 75.7 H, Lymph % (Auto) 17.1 L, [place] % (Auto) 4.5, Eos % (Auto) 1.3, Baso % (Auto) 0.7, Absolute Neuts (auto) 9.6 H, Absolute Lymphs (auto) 2.17, Nucleated RBC % 0, D-Dimer Quant (PE/DVT) 1.02 H*, Sodium 140, Potassium 3.9, Chloride 101, Carbon Dioxide 25.3, Anion Gap 14, BUN 13, Creatinine 0.80, Estim Creat Clear Calc 84.94, Est GFR (MDRD) Non-Af 84, BUN/Creatinine Ratio 16.6, Glucose 111 H, Lactic Acid 1.9, Calcium 9.6 Micro: Microbiology 03/17/25 07:55 Mucosa - Nasopharyngeal SARS-CoV-2, Influenza & RSV (PCR) - Final ABG Data ABG results: ABG 03/17/25 07:54 Specimen Type DEEPALI Sample Site Not entered O2 % 5.0 VBG pH 7.44 H VBG pO2 48 H VBG HCO3 27 H VBG Total CO2 28 VBG O2 Sat (Calc) 85 H VBG Base Excess 3 POC Mix VBG pCO2 Pt Tmp 38.9 L O2 Delivery Device Cannula Imaging Radiology Impression Chest X-Ray 03/17/25 08:05 IMPRESSION: There is mild cardiomegaly. Central vascularity appears increased. There is consolidation in the left medial lung base, retrocardiac region. Reading [facility] Chest CTA 03/17/25 08:26 IMPRESSION: 1. No central or definite pulmonary embolism identified allowing for limitations related to contrast timing. 2. Virtually complete LEFT lower lobar consolidation/collapse. Preserved enhancement suggests the absence of superimposed significant pneumonia/pneumonitis although early pneumonia is difficult to entirely exclude. Given mucous impacted bronchi in the region, consider aspiration. Recommend CT chest in 3 months to ensure no underlying central obstructing process as an alternative etiology. Additionally, recommend ongoing lung cancer screening per the below. 3. Borderline RIGHT hilar lymphadenopathy, nonspecific and potentially reactive in the absence of known malignancy. Attention on above follow-up, which should ideally include IV contrast. 4. Additional description as above. The USPSTF recommends annual screening for lung cancer with low-dose computed tomography (LDCT) in adults aged 50 to 80 years who have a 20 pack-year smoking history and currently smoke or have quit within the past 15 years. Reading Location: [id number] Assessment & Plan Assessment/Plan (1) Mucus plugging of bronchi: (2) CAP (community acquired pneumonia): (3) Hypoxia: (4) Chronic respiratory failure with hypoxia: PLAN: Plan Patient is a 59-year-old female who presented to [facility] ED on 03/17/25 with acute onset shortness of breath. 1. Suspected recurrent mucous plugging with concern for community-acquired pneumonia in setting of severe COPD/emphysema with chronic hypoxic respiratory failure ? Admit under inpatient status to PCU. Pulmonology consulted. Presentation seems most consistent with recurrent mucous plugging; had similar hospitalization in June 2024 with bronchoscopy required to relieve mucous plugging. CTA chest showed no PE, did show a virtually complete left lower lobe consolidation/collapse concerning for recurrent mucous plugging versus pneumonia. Per pulmonology, will treat with empiric antibiotics, IV steroids, scheduled bronchodilators and aggressive pulmonary hygiene with plan for repeat chest x-ray tomorrow morning. If not resolved on imaging, will plan for bronchoscopy tomorrow afternoon. N.p.o. at midnight. 2. Tobacco use disorder ? NRT available while inpatient as needed. Continue home bupropion. Chronic medical conditions: ? Class I obesity: BMI 32 on admit. Complicates hospital course, care and prognosis. ? Seasonal allergies: Continue home Singulair. ? Hypothyroidism: Continue home Synthroid. ? GERD: Continue home PPI. ? Hyperlipidemia: Continue home statin. ? Restless leg syndrome: Continue home pramipexole. ? Lumbar radiculopathy: Continue home hydrocodone?acetaminophen as needed and scheduled gabapentin. ? Type 2 diabetes mellitus: Hold home metformin. Treat with sliding scale insulin with meals while inpatient, adjust as needed. DVT prophylaxis: Lovenox CODE STATUS: Full code, verified Expected disposition: Home, 2 to 3 days Total clinical time spent by myself addressing the patient's medical issues, reviewing all the data, and collaborating with patient's care team: 55 minutes. Charges/Coding Visit Charges Inpatient E&M: 35334 Init Hosp L2
[2025-03-17 10:52] LABS: Pro- Brain NATRIURETIC PEPTIDE < 36 pg/mL (<=900); Troponin T High Sensitivity < 6 ng/L (<=14)
[2025-03-17 11:17] LABS: Troponin T High Sens 2 HR < 6 ng/L (<=14)
--- NOTE | 2025-03-17 12:14 | EX.PCM.CONCC ---
Assessment & Plan Assessment/Plan (1) Acute on chronic respiratory failure with hypoxemia: PLAN: Plan RECOMMENDATIONS: 1. Supplemental oxygen to maintain saturations at or above 90%. 2. Start empiric antimicrobials. 3. Scheduled bronchodilators and steroids. 4. Aggressive bronchopulmonary hygiene, including acetylcysteine. 5. Obtain follow-up chest x-ray tomorrow morning. 6. If persistent lobar collapse is noted on chest imaging tomorrow morning, we will proceed with bronchoscopy at 12:00. 7. N.p.o. after midnight. IMPRESSIONS: 1. Acute on chronic hypoxemic respiratory failure Appears secondary to acute mucous plugging with subsequent left lower lobe consolidation/atelectasis. The patient has known advanced age COPD along with a baseline oxygen requirement of 3 L/min. For now, we will plan to continue aggressive bronchopulmonary hygiene with scheduled bronchodilators, steroids and Mucomyst. In addition, empiric antibiotics will be initiated. A plain film chest x-ray will be obtained tomorrow morning. If the patient has persistent lobar collapse on follow-up chest imaging, will proceed with bronchoscopy tomorrow afternoon at 12:00. The patient is in agreement with this plan. The patient is to be made n.p.o. at midnight. 2. Chronic tobacco dependency/hypothyroidism/GERD/hyperlipidemia Complicates care, management, recovery and prognosis. Continue supportive measures as noted above. This note was generated with [employer] dictation software. It may contain incorrect words, spelling, and punctuation that were not noted in checking the note before signing. HPI Consult Data Date of Consult: 03/17/25 HPI Narrative Reason for Consultation: Acute on chronic respiratory failure HPI Narrative: The patient is a 59-year-old female, with a history as outlined below, who presented to the emergency department on March 17 with worsening shortness of breath. The patient has a known history of advanced age COPD, chronic tobacco dependency and chronic hypoxemic respiratory failure with a baseline requirement of 3 L/min. She is maintained on a triple therapy inhaler regimen at her baseline. She was last seen in the pulmonary medicine office 2 weeks ago. On presentation to the emergency department, the patient was documented to be afebrile and hemodynamically stable. She was initially requiring 5 L/min of supplemental oxygen. Laboratory evaluation revealed a white blood cell count of 12,000. Chemistry profile was unremarkable. Lactate was within normal limits. BNP was normal. COVID, influenza and RSV PCR's were negative. CTA chest showed no evidence for pulmonary embolism but did demonstrate significant bilateral emphysematous changes along with significant left lower lobe consolidation with concern for mucoid impaction. Previously, in 2022, the patient was hospitalized under similar circumstances and underwent bronchoscopy to facilitate airway clearance. Sputum culture at that time was positive for Enterobacter. [facility] Medical History On home oxygen therapy Smoker Moderate COPD (chronic obstructive pulmonary disease) Urinary incontinence Thyroid nodule Suprapubic pain Spinal stenosis in cervical region Pneumothorax of left lung after biopsy Other intermediate designer (current) drug therapy Lumbar radiculopathy Hyperlipidemia Heavy tobacco smoker Chronic headaches GERD (gastroesophageal reflux disease) Frontal lobe deficit Essential hypertension Dysuria Dyspnea Dyslipidemia DDD (degenerative disc disease) Cough Confusional state Chronic pain Chronic obstructive lung disease Bronchospasm Brachial (cervical) neuritis Back pain Aortic valve regurgitation Acute bronchitis Hypothyroidism Abnormal CT scan, chest Home Medications ?Medication ?Instructions ?Recorded ?Last Taken ?Type lovastatin 40 mg tablet 80 mg PO QHS 06/19/18 03/16/25 History pramipexole 1 mg tablet 1 mg PO BID 09/19/20 03/17/25 History ipratropium 0.5 mg-albuterol 3 mg 3 ml inhalation Q4H PRN PRN SOB 12/18/22 03/17/25 Rx (2.5 mg base)/3 mL nebulization &/OR WHEEZING #180 mL soln docusate sodium 100 mg capsule 200 mg PO DAILY 06/27/23 03/16/25 History gabapentin 400 mg capsule 400 mg PO TID 06/27/23 03/17/25 History montelukast 10 mg tablet 10 mg PO QHS 06/27/23 03/16/25 History furosemide 40 mg tablet 40 mg PO QDAY 03/13/24 03/17/25 History metformin 500 mg tablet 500 mg PO BID 11/02/24 03/17/25 History albuterol sulfate 90 mcg/actuation 2 inh inhalation Q4-6H PRN 03/02/25 Unknown Rx aerosol inhaler shortness of breath or wheezing #8.5 grams bupropion HCl 150 mg tablet,12 hr 150 mg PO BID #60 ea 03/02/25 03/17/25 Rx sustained-release (Wellbutrin SR) fluticasone fur. 100 mcg-umeclid 1 inh inhalation Q24H #60 ea 03/02/25 03/17/25 Rx 62.5 mcg-vilant 25 mcg inhalat.powder (Trelegy Ellipta) hydrocodone-acetaminophen 5-325mg 1 tab PO DAILY PRN pain 03/02/25 03/17/25 History 5mg-325mg aspirin 81 mg tablet,delayed 81 mg PO DAILY 03/17/25 03/17/25 History release (Adult Aspirin Regimen) conjugated estrogens 0.625 mg/gram 0.625 mg vaginal QWEEK 03/17/25 Unknown History vaginal cream (Premarin) lansoprazole 30 mg capsule,delayed 30 mg PO DAILY 03/17/25 03/17/25 History release levothyroxine 125 mcg tablet 125 mcg PO DAILY 03/17/25 03/17/25 History omega 6-rro-gdg-fish oil 300 1 cap PO BID 03/17/25 03/17/25 History mg-1,000 mg capsule (Fish Oil) Allergy/AdvReac Type Severity Reaction Status Date / Time ciprofloxacin Allergy Mild severe Verified 03/02/25 08:05 upset GI clarithromycin Allergy Mild severe Verified 03/02/25 08:05 upset GI fenofibrate Allergy Mild Verified 03/02/25 08:05 nabumetone Allergy Mild Verified 03/02/25 08:05 oxybutynin Allergy Mild Verified 03/02/25 08:05 Sulfa (Sulfonamide Allergy Mild Verified 03/02/25 08:05 Antibiotics) fesoterodine (From Toviaz) AdvReac Mild Other Verified 03/02/25 08:05 Family History Mother Cancer Lung Heart disease CVA (cerebral vascular accident) Father COPD (chronic obstructive pulmonary disease) Brother Diabetes Kidney disease Surgical History History of lung biopsy History of hysterectomy Social History Smoking Status: Current every day smoker tobacco type: cigarettes Tobacco: How many years used: 50 second hand exposure: Yes alcohol intake: never substance use type: does not use caffeine: Yes Type: coffee what type of physical activity do you participate in: other frequency: daily ROS ROS Narrative 10 systems were reviewed with pertinent positives as noted in the HPI above. Physical Exam Const alert, oriented x3 and no apparent distress Constitutional Narrative: Sitting in bedside recliner. General Appearance: cooperative HEENT normocephalic, head/scalp atraumatic and moist oral mucous membranes Eyes PERRL, EOMs intact bilaterally and conjunctivae normal Neck supple General: trachea midline Chest inspection of chest normal Resp normal respiratory effort Resp Narrative: Discernible lack of air movement left lower lobe Auscultation: diminished lung sounds Cardio regular rate and regular rhythm GI normal to inspection, nondistended, normoactive bowel sounds Extremity no clubbing, cyanosis or edema Skin no rashes or lesions noted Neuro CN's II-XII intact bilaterally, moves all extremities and no focal motor deficits Psych cooperative and affect normal Lab / Micro Data 03/17/25 07:45 03/17/25 07:45 Labs: Laboratory Results - last 24 hr 03/17/25 07:45: WBC 12.7 H, RBC 5.12, Hgb 15.4 H, Hct 46.4, MCV 90.6, MCH 30.1, MCHC 33.2, RDW Std Deviation 53.3 H, RDW Coeff of Brandy 16.0 H, Plt Count 243, MPV 11.3, Immature Gran % (Auto) 0.700, Neut % (Auto) 75.7 H, Lymph % (Auto) 17.1 L, [place] % (Auto) 4.5, Eos % (Auto) 1.3, Baso % (Auto) 0.7, Absolute Neuts (auto) 9.6 H, Absolute Lymphs (auto) 2.17, Nucleated RBC % 0, D-Dimer Quant (PE/DVT) 1.02 H*, Sodium 140, Potassium 3.9, Chloride 101, Carbon Dioxide 25.3, Anion Gap 14, BUN 13, Creatinine 0.80, Estim Creat Clear Calc 84.94, Est GFR (MDRD) Non-Af 84, BUN/Creatinine Ratio 16.6, Glucose 111 H, Lactic Acid 1.9, Calcium 9.6, Troponin T High Sens < 6, NT pro BNP II < 36 03/17/25 09:50: Troponin T Hi Sens 2 Hr < 6 Micro: Microbiology 03/17/25 07:55 Mucosa - Nasopharyngeal SARS-CoV-2, Influenza & RSV (PCR) - Final ABG Data ABG results: ABG 03/17/25 07:54 Specimen Type DEEPALI Sample Site Not entered O2 % 5.0 VBG pH 7.44 H VBG pO2 48 H VBG HCO3 27 H VBG Total CO2 28 VBG O2 Sat (Calc) 85 H VBG Base Excess 3 POC Mix VBG pCO2 Pt Tmp 38.9 L O2 Delivery Device Cannula Imaging Radiology Impression Chest X-Ray 03/17/25 08:05 IMPRESSION: There is mild cardiomegaly. Central vascularity appears increased. There is consolidation in the left medial lung base, retrocardiac region. Reading Location: [facility] Chest CTA 03/17/25 08:26 IMPRESSION: 1. No central or definite pulmonary embolism identified allowing for limitations related to contrast timing. 2. Virtually complete LEFT lower lobar consolidation/collapse. Preserved enhancement suggests the absence of superimposed significant pneumonia/pneumonitis although early pneumonia is difficult to entirely exclude. Given mucous impacted bronchi in the region, consider aspiration. Recommend CT chest in 3 months to ensure no underlying central obstructing process as an alternative etiology. Additionally, recommend ongoing lung cancer screening per the below. 3. Borderline RIGHT hilar lymphadenopathy, nonspecific and potentially reactive in the absence of known malignancy. Attention on above follow-up, which should ideally include IV contrast. 4. Additional description as above. The USPSTF recommends annual screening for lung cancer with low-dose computed tomography (LDCT) in adults aged 50 to 80 years who have a 20 pack-year smoking history and currently smoke or have quit within the past 15 years. Reading Location: [facility] Charges/Coding Visit Charges Inpatient E&M: 27405 Init Hosp L3
[2025-03-17] MEDS: Ipratropium/Albuterol Sulfate 3 ML AMPUL.NEB INHALATION ×2 (13:32→19:40)
[2025-03-17] MEDS: Acetylcysteine 800 MG/4 ML VIAL.NEB. INHALATION ×2 (13:33→22:10)
[2025-03-17] MEDS: Gabapentin 400 MG Capsule PO ×2 (13:48→20:54)
[2025-03-17] MEDS: Cefepime HCl 2 GM in 0.9% Normal Saline (100mL MB+) 100 ML IV ×2 (13:49→20:39)
[2025-03-17] MEDS: Insulin Lispro 100 UNIT/ML INSULN.PEN SC ×2 (16:17→20:56)
[2025-03-17 17:02] LABS: Bedside Glucose 241 mg/dL (74-106)
[2025-03-17] MEDS: buPROPion (SR) 150 MG Tablet.SA PO (20:55)
[2025-03-17] MEDS: Pramipexole Di-HCl 1 MG Tablet PO (20:55)
[2025-03-17] MEDS: Montelukast 10 MG Tablet PO (20:56)
[2025-03-17] MEDS: Atorvastatin Calcium 10 MG Tablet PO (20:56)
[2025-03-17 21:43] LABS: Bedside Glucose 183 mg/dL (74-106)
[2025-03-17] MEDS: Albuterol 2.5 MG/3 ML VIAL.NEB. INHALATION (22:10)
[2025-03-18] VITALS (19 sets, daily range): BP systolic 84–152; BP diastolic 56–100; PULSE 76–104; RESP 14–20; TEMP 36.2–37.3; O2SAT 88–96; BMI 32.8
--- NOTE | 2025-03-18 | FLU_PTH ---
PATIENT: ARIES SIMON LOC: [facility] U#:[id number] AGE/SX: 59/F ROOM: [facility] RE03/17/[address]: Dr. Kel Murphy DO : 1965 BED: 1 DIS: 03/19/2025 SPEC #: [id number] RECD: 03/18/25 12:37 STATUS: FREDY REQ #: [id number] NANDO: 03/18/25 00:[address]: Kel Murphy DEPT: CYTOLOGY RECD BY: Melody Armstrong ENTERED: 03/19/25 09:31 SP TYPE: Fluid OTHR DR: Tabitha Sandoval, HOUSE PAINTER HELPER-C Tissues: Bronchus of left lower lobe Procedures: Special Stain Group II Special Stain Group I Surgery Specimen Level IV AFB Stain (control) GMS Stain (control) Cytospin Fluid HEADER OPERATION: Bronchoscopy PRE-OP DIAGNOSIS: Abnormal CT scan TISSUE SUBMITTED: A- Left lower lobe fluid for cytology DIAGNOSIS CYTOLOGY A. Left lower lobe fluid: * No malignant cells are identified (See note) Note: The GMS, AFB and PC stains are negative. CYTOLOGY STUDY Slides are reviewed. CYTOLOGY GROSS A. Received is 5 ml of tannish-pink mucoidy-cloudy fluid labeled with the patient's name and and designated per the requisition as Left lower lobe. Submitted for cytology and cell block preparation. Mr 03/19/2025 CPT: 09632 ,[id number]
--- NOTE | 2025-03-18 03:10 | RAD_ITS ---
PROCEDURE: CHEST 1 VIEW (PORTABLE) 03/18/2025 REASON FOR EXAM: SOB TECHNIQUE: Frontal view of the chest. COMPARISON: 03/17/2025 FINDINGS: Persistent collapse, consolidation of the retrocardiac left lower lobe again noted. Minimal atelectasis suggested at the right base. The lungs otherwise appear clear. Pulmonary emphysema again noted. Previous anterior cervical disc fusion and intervertebral disc spacers noted. RAD/Chest 1 View (Portable) IMPRESSION: No significant interval change in appearance of the chest as above. Reading Location: [id number]
[2025-03-18] MEDS: HYDROcodone Bitartrate/Apap 5/325 Tablet PO ×2 (04:29→20:55)
[2025-03-18 05:24] LABS: Hematocrit 44.8 % (37-47); Hemoglobin 14.3 g/dL (12.0-15.0); Mean Corp Hgb Conc 31.9 g/dL (32-36); Mean Corpuscular Hgb 29.2 pg (27.0-32.0); Mean Corpuscular Volume 91.4 fL (81-99); Mean Platelet Vol. 11.2 fl (6.2-12.0); Platelet Count 272 K/mm3 (150-450); RBC Distribution Width CV 16.1 % (11.6-14.6); RBC Distribution Width SD 53.9 fl (35.1-43.9)
[2025-03-18 05:46] LABS: Anion Gap 15 (5-15); BUN 14 mg/dL (4-19); BUN/Creat Ratio 19.6 RATIO (10-20); Calcium,Total 9.9 mg/dL (7.6-11.0); Carbon Dioxide 20.8 mmol/L (21.0-32.0); Chloride 103 mmol/L (98-108); Creatinine, Serum 0.73 mg/dL (0.70-1.20); EST Glomerular Filtration Rate 93 (>60); Estimated Creatinine Clearance 92.52 ml/min (50-250); Glucose 175 mg/dL (70-99); Potassium 4.3 mmol/L (3.3-5.1); Sodium Level 138 mmol/L (133-145)
[2025-03-18] MEDS: Levothyroxine 125 MCG Tablet PO (06:29)
[2025-03-18] MEDS: Gabapentin 400 MG Capsule PO ×3 (06:29→20:56)
[2025-03-18] MEDS: Cefepime HCl 2 GM in 0.9% Normal Saline (100mL MB+) 100 ML IV ×3 (06:30→20:53)
[2025-03-18] MEDS: Insulin Lispro 100 UNIT/ML INSULN.PEN SC ×3 (06:39→20:58)
[2025-03-18 07:18] LABS: Bedside Glucose 154 mg/dL (74-106)
[2025-03-18] MEDS: Ipratropium/Albuterol Sulfate 3 ML AMPUL.NEB INHALATION ×2 (07:20→20:24)
[2025-03-18] MEDS: Acetylcysteine 800 MG/4 ML VIAL.NEB. INHALATION ×2 (07:20→20:24)
--- NOTE | 2025-03-18 08:30 | EKG12_ITS ---
Test Reason : pre op Blood Pressure : */* mmHG Vent. Rate : 86 BPM Atrial Rate : 86 BPM P-R Int : 204 ms QRS Dur : 92 ms QT Int : 394 ms P-R-T Axes : 52 -4 56 degrees QTcB Int : 471 ms Normal sinus rhythm Low voltage QRS Borderline ECG When compared with ECG of 17-Mar-2025 07:37, MANUAL COMPARISON REQUIRED DATA IS UNCONFIRMED Confirmed by HANNAH WASHBURN, LEONA ([id number]), index editor MALKA BLACK ([id number]) on 03/19/2025 6:35:56 AM Referred By: Confirmed By: LEONA YOUNG MD
--- NOTE | 2025-03-18 08:53 | PCM.PN.INT ---
Assessment & Plan Assessment/Plan (1) Acute on chronic respiratory failure with hypoxemia: PLAN: Plan RECOMMENDATIONS: 1. Supplemental oxygen to maintain saturations at or above 90%. 2. Continue empiric antimicrobials. 3. Scheduled bronchodilators and steroids. 4. Aggressive bronchopulmonary hygiene, including acetylcysteine. 5. Will proceed with bronchoscopy as scheduled this afternoon. IMPRESSIONS: 1. Acute on chronic hypoxemic respiratory failure Appears secondary to acute mucous plugging with subsequent left lower lobe consolidation/atelectasis. The patient has known advanced age COPD along with a baseline oxygen requirement of 3 L/min. For now, we will plan to continue aggressive bronchopulmonary hygiene with scheduled bronchodilators, steroids and Mucomyst. In addition, empiric antibiotics will be continued. Will plan to proceed with bronchoscopy with therapeutic airway suctioning and BAL this afternoon. 2. Chronic tobacco dependency/hypothyroidism/GERD/hyperlipidemia Complicates care, management, recovery and prognosis. Continue supportive measures as noted above. This note was generated with [employer] dictation software. It may contain incorrect words, spelling, and punctuation that were not noted in checking the note before signing. Subjective Subjective The patient was seen and examined at the bedside this morning. Events from the last 24 hours have been reviewed. The patient is currently afebrile, hemodynamically stable and maintaining appropriate oxygen saturations on 4 L/min via nasal cannula. White blood cell count is elevated at 18,000. Chemistry profile is within normal limits. The patient actually reported that she feels a bit better this morning. However, her repeat chest x-ray from this morning was largely unchanged from previous. Therefore, the patient would like to proceed with bronchoscopy. Objective Data Objective Data The patient's most recent lab work, culture data and imaging studies have all been personally reviewed. COVID, influenza and RSV PCR's were negative. Vital Signs: Vital Signs Temp Pulse Resp BP Pulse Ox O2 Del Method O2 Flow Rate 97.9 F 84 20 H 125/64 H 95 Nasal Cannula 4 03/18/25 08:12 03/18/25 08:12 03/18/25 08:12 03/18/25 08:12 03/18/25 08:12 03/18/25 08:13 03/18/25 08:12 Oxygen Flow Rate (L/min) 4 Oxygen Delivery Method Nasal Cannula Weight: 203 lb 0.732 oz Body Mass Index (BMI) 32.8 Intake & Output: Intake and Output for Last 24 Hours 03/16/25 03/17/25 03/18/25 23:59 23:59 23:59 Intake Total 1311911 940 / 940 Balance 1311 940 / 940 Lab / Micro Data Attestation: I reviewed the patient's lab results. 03/18/25 04:37 03/18/25 04:37 Labs: Laboratory Results - last 24 hr 03/17/25 07:45: Sodium 140, Potassium 3.9, Chloride 101, Carbon Dioxide 25.3, Anion Gap 14, BUN 13, Creatinine 0.80, Estim Creat Clear Calc 84.94, Est GFR (MDRD) Non-Af 84, BUN/Creatinine Ratio 16.6, Glucose 111 H, Lactic Acid 1.9, Calcium 9.6, Troponin T High Sens < 6, NT pro BNP II < 36 03/17/25 09:50: Troponin T Hi Sens 2 Hr < 6 03/17/25 16:09: POC Glucose 241 H 03/17/25 20:53: POC Glucose 183 H 03/18/25 04:37: WBC 18.0 H, RBC 4.90, Hgb 14.3, Hct 44.8, MCV 91.4, MCH 29.2, MCHC 31.9 L, RDW Std Deviation 53.9 H, RDW Coeff of Brandy 16.1 H, Plt Count 272, MPV 11.2, Sodium 138, Potassium 4.3, Chloride 103, Carbon Dioxide 20.8 L, Anion Gap 15, BUN 14, Creatinine 0.73, Estim Creat Clear Calc 92.52, Est GFR (MDRD) Non-Af 93, BUN/Creatinine Ratio 19.6, Glucose 175 H, Hemoglobin A1c 6.0 H, Calcium 9.9 03/18/25 06:38: POC Glucose 154 H Micro: Microbiology 03/17/25 07:55 Mucosa - Nasopharyngeal SARS-CoV-2, Influenza & RSV (PCR) - Final Radiography Diagnostic Testing: Radiology Impression Chest CTA 03/17/25 08:26 IMPRESSION: 1. No central or definite pulmonary embolism identified allowing for limitations related to contrast timing. 2. Virtually complete LEFT lower lobar consolidation/collapse. Preserved enhancement suggests the absence of superimposed significant pneumonia/pneumonitis although early pneumonia is difficult to entirely exclude. Given mucous impacted bronchi in the region, consider aspiration. Recommend CT chest in 3 months to ensure no underlying central obstructing process as an alternative etiology. Additionally, recommend ongoing lung cancer screening per the below. 3. Borderline RIGHT hilar lymphadenopathy, nonspecific and potentially reactive in the absence of known malignancy. Attention on above follow-up, which should ideally include IV contrast. 4. Additional description as above. The USPSTF recommends annual screening for lung cancer with low-dose computed tomography (LDCT) in adults aged 50 to 80 years who have a 20 pack-year smoking history and currently smoke or have quit within the past 15 years. Reading Location: [facility] Chest X-Ray 03/18/25 03:10 IMPRESSION: No significant interval change in appearance of the chest as above. Reading Location: [id number] Physical Exam Const alert, oriented x3 and no apparent distress Constitutional Narrative: Sitting in bedside recliner. General Appearance: cooperative HEENT normocephalic, head/scalp atraumatic and moist oral mucous membranes Eyes PERRL, EOMs intact bilaterally and conjunctivae normal Neck supple General: trachea midline Chest inspection of chest normal Resp normal respiratory effort Auscultation: diminished lung sounds Cardio regular rate and regular rhythm GI normal to inspection, nondistended, normoactive bowel sounds Extremity no clubbing, cyanosis or edema Skin no rashes or lesions noted Neuro CN's II-XII intact bilaterally, moves all extremities and no focal motor deficits Psych cooperative and affect normal Charges/Coding Visit Charges Inpatient E&M: 64406 Subs Hosp L2
[2025-03-18 09:38] LABS: Partial Thromboplast Time 30.3 Seconds (24.1-36.2)
--- NOTE | 2025-03-18 10:24 | PCM.PN.HOSP ---
Reason for Visit Reason for Visit: Diagnoses Pneumonia, unspecified organism (03/17/25) Chronic respiratory failure with hypoxia (03/17/25) Acute and chronic respiratory failure with hypoxia (03/17/25) Hypoxemia (03/17/25) Unspecified foreign body in bronchus causing asphyxiation, initial encounter (03/17/25) Subjective Subjective Saw patient at bedside this morning. Patient was sitting up comfortably in bedside chair, conversing normally, in no acute distress. Breathing comfortably on 4 L nasal cannula at rest. Energy appears improved today. Patient states that she feels slightly better today compared to yesterday but still feels more short of breath than her normal. Noted that chest x-ray continues to show significant area of suspected mucous plugging and plans for bronchoscopy today and patient remains agreeable to this. No other new concerns today. Objective Data Objective Data Vital Signs: Vital Signs Temp Pulse Resp BP Pulse Ox O2 Del Method O2 Flow Rate 97.9 F 84 20 H 125/64 H 95 Nasal Cannula 4 03/18/25 08:12 03/18/25 08:12 03/18/25 08:12 03/18/25 08:12 03/18/25 08:12 03/18/25 08:13 03/18/25 08:12 Oxygen Flow Rate (L/min) 4 Oxygen Delivery Method Nasal Cannula Weight: 92.1 kg Body Mass Index (BMI) 32.8 Intake & Output: Intake and Output for Last 24 Hours 03/16/25 03/17/25 03/18/25 23:59 23:59 23:59 Intake Total 1311 940 / 940 Balance 1311 940 / 940 Lab / Micro Data 03/18/25 04:37 03/18/25 04:37 Labs: Laboratory Results - last 24 hr 03/17/25 07:45: Troponin T High Sens < 6, NT pro BNP II < 36 03/17/25 09:50: Troponin T Hi Sens 2 Hr < 6 03/17/25 16:09: POC Glucose 241 H 03/17/25 20:53: POC Glucose 183 H 03/18/25 04:37: WBC 18.0 H, RBC 4.90, Hgb 14.3, Hct 44.8, MCV 91.4, MCH 29.2, MCHC 31.9 L, RDW Std Deviation 53.9 H, RDW Coeff of Brandy 16.1 H, Plt Count 272, MPV 11.2, Sodium 138, Potassium 4.3, Chloride 103, Carbon Dioxide 20.8 L, Anion Gap 15, BUN 14, Creatinine 0.73, Estim Creat Clear Calc 92.52, Est GFR (MDRD) Non-Af 93, BUN/Creatinine Ratio 19.6, Glucose 175 H, Hemoglobin A1c 6.0 H, Calcium 9.9 03/18/25 06:38: POC Glucose 154 H 03/18/25 08:50: PT 13.0, INR 1.0, APTT 30.3 Micro: Microbiology 03/17/25 07:55 Mucosa - Nasopharyngeal SARS-CoV-2, Influenza & RSV (PCR) - Final Radiography Diagnostic Testing: Radiology Impression Chest X-Ray 03/18/25 03:10 IMPRESSION: No significant interval change in appearance of the chest as above. Reading Location: [facility] Physical Exam Const alert, oriented x3 and no apparent distress Constitutional Narrative: Upper middle-aged female, class I obesity, appears older than stated age, energy improved from admission, sitting up comfortably in bed, conversing normally, in no acute distress. General Appearance: cooperative and comfortable HEENT normocephalic, head/scalp atraumatic, hearing grossly normal bilaterally, nasal mucous membranes and turbinates normal and moist oral mucous membranes Eyes PERRL, EOMs intact bilaterally and conjunctivae normal Neck full ROM Chest inspection of chest normal Resp normal respiratory effort and no use of accessory muscles Resp Narrative: Breathing comfortably on 4 L nasal cannula at rest. Significantly reduced breath sounds in the left lung base, otherwise mildly reduced breath sounds bilaterally throughout with no wheezing or crackles noted. Stable. Cardio regular rate, regular rhythm, no murmurs and peripheral pulses 2+ throughout GI normal to inspection, nondistended, normoactive bowel sounds, soft to palpation, non-tender and non-distended Back/Spine normal ROM Extremity normal to inspection, full ROM and no pedal edema Skin no rashes or lesions noted Psych mental status grossly normal Assessment & Plan Assessment/Plan (1) Mucus plugging of bronchi: (2) CAP (community acquired pneumonia): (3) Hypoxia: (4) Chronic respiratory failure with hypoxia: PLAN: Plan Patient is a 59-year-old female who presented to [facility] ED on 03/17/25 with acute onset shortness of breath. 1. Suspected recurrent mucous plugging with community-acquired pneumonia in setting of severe COPD/emphysema with chronic hypoxic respiratory failure ? Pulmonology following. Presentation seems most consistent with recurrent mucous plugging; had similar hospitalization in June 2024 with bronchoscopy required to relieve mucous plugging. CTA chest showed no PE, did show a virtually complete left lower lobe consolidation/collapse concerning for recurrent mucous plugging versus pneumonia. Per pulmonology, treating with empiric antibiotics, IV steroids, scheduled bronchodilators and aggressive pulmonary hygiene. Repeat chest x-ray on morning of 03/18 without resolution so planning for bronchoscopy today, will follow-up on result. 2. Tobacco use disorder ? NRT available while inpatient as needed. Continue home bupropion. Chronic medical conditions: ? Class I obesity: BMI 32 on admit. Complicates hospital course, care and prognosis. ? Seasonal allergies: Continue home Singulair. ? Hypothyroidism: Continue home Synthroid. ? GERD: Continue home PPI. ? Hyperlipidemia: Continue home statin. ? Restless leg syndrome: Continue home pramipexole. ? Lumbar radiculopathy: Continue home hydrocodone?acetaminophen as needed and scheduled gabapentin. ? Type 2 diabetes mellitus: Hold home metformin. Treat with sliding scale insulin with meals while inpatient, adjust as needed. DVT prophylaxis: Lovenox CODE STATUS: Full code, verified Expected disposition: Home, 1 to 2 days Total clinical time spent by myself addressing the patient's medical issues, reviewing all the data, and collaborating with patient's care team: 35 minutes. Charges/Coding Visit Charges Inpatient E&M: 22882 Subs Hosp L2
--- NOTE | 2025-03-18 11:11 | CASEMGMT ---
NIK AMATO Assessment Face to Face with patient for initial transition planning/care coordination assessment. NIK AMATO introduced self and role at [facility], pt voices understanding. Pt is A&Ox4 and is resting comfortably in bed and is calm. Care providers, pharmacy, and demographics verified. Admitting dx: SOB TONIE Strata: 1 PCP: Tabitha Sandoval Specialists: [facility], [place] ([facility]) Preferred Pharmacy: [facility] [place] Insurance: [employer] Dual, [facility]/[employer] Prescription Benefit: Yes LNOK: Blair Haynes (SO) Living Arrangements: Pt lives with her SO in a mobile home with 4 steps to enter with bilateral handrails ADLs/IADLs: Ind Transportation: Self, SO. Denies concerns DME: Home oxygen through [employer]. [facility] who states that the pt most recent order is for 2L continuous via [place]. Pt states that she has a concentrator, POC (That her SO will bring in), pulse ox, and nebulizer. Pt also states that she has a BGM with sufficient supplies. HHC/SNF: Denies history or needs Pt?s goal: Home Plan: Home with SO once medically ready, follow for increased oxygen demands and Rx. Pt states that she feels safe returning home with her SO at the time of DC and denies further questions or concerns at this time. 6-Click score is 23. Report given to FUNERAL ATTENDANT CM. Jerrod Angulo RN, CM
[2025-03-18] MEDS: Lactated Ringers 1,000 ML 15 ML IV (11:16)
--- NOTE | 2025-03-18 11:42 | PCM.PRE.AN2 ---
ASA Classification* ASA Classification ASA Classification: 3 Assessment & Plan Anesthesia* Anesthesia Assessment Anesthesia Assessment: Discussed sedation and/or anesthesia options, risks, benefits, and alternatives with patient/parents/legal guardian/POA. Questions invited. The patient/parents/legal guardian/POA seems to understand and agrees to proceed with anesthesia plan. Reviewed the physical assessment, medical history, allergy history and patient home medications list prior to surgery/procedure/anesthetic and documented any changes. Performed airway and anesthesia risk assessments. Anesthesia Type Anesthesia Type: MAC Anesthesia Focused Assessment* Temperature: 98.1 F Pulse Rate: 76 Blood Pressure: 111/65 Respiratory Rate: 20 Pulse Ox: 94 Oxygen Delivery Method: Nasal Cannula Oxygen Flow Rate (L/min): 4 Airway Assessment Mouth opens: >3 cm Mallampati Score: III Teeth Condition: Dentures (Patient has full upper and lower dentures. They are tight.) Neck Range of motion (ROM): Limited ROM (Slight decrease in extension) Focused Labs Anesthesia Preop lab: CBC WBC 18.0 K/mm3 (4.4-11.0) H 03/18/25 04:37 03/18/25 RBC 4.90 M/mm3 (4.2-5.4) 03/18/25 04:37 03/18/25 Hgb 14.3 g/dL (12.0-15.0) 03/18/25 04:37 03/18/25 Hct 44.8 % (37-47) 03/18/25 04:37 03/18/25 Plt Count 272 K/mm3 (150-450) 03/18/25 04:37 03/18/25 CHEMISTRY Potassium 4.3 mmol/L (3.3-5.1) 03/18/25 04:37 03/18/25 Sodium 138 mmol/L (133-145) 03/18/25 04:37 03/18/25 Magnesium 2.7 mg/dL (1.6-2.6) H 06/29/23 07:09 06/29/23 Phosphorus 3.7 mg/dL (2.5-4.9) 06/29/23 07:09 06/29/23 BUN 14 mg/dL (4-19) 03/18/25 04:37 03/18/25 Creatinine 0.73 mg/dL (0.70-1.20) 03/18/25 04:37 03/18/25 Glucose 175 mg/dL (70-99) H 03/18/25 04:37 03/18/25 POC Glucose 154 mg/dL (74-106) H 03/18/25 06:38 03/18/25 COAG PT 13.0 SECONDS (11.7-14.9) 03/18/25 08:50 03/18/25 Pre-Assessment Diagnosis/Proposed Procedure Planned Operative Procedure(s): Flexible fiberoptic bronchoscopy with possible washings, brushings, biopsies and/or needle aspiration. 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 When Was Last Pacemaker Check QUESTION #4 FULL TEXT: You/Your Family Experience fever (hyperthermia) with Anesthesia Last Oral Intake Last Oral intake: Last Oral Intake NPO since 06:00 03/18/25 11:14 Meds taken in AM with sips of water? Meds patient instructed to take am of surgery Any additional information?: Yes NPO since: 06:00 (Patient took her meds with a sip of water this morning at 6 am.) Meds taken in AM with sips of water?: Yes PONV PONV - service crew supervisor: PONV - service crew supervisor Female HX of Motion Sickness HX of N/V After Surgery Non-Smoker Duration of Surgery greater than 60 minutes Number of Risk Factors PONV Score Height & Weight Height & Weight: Anesthesia: Height & Weight Height 5 ft 6 in 03/18/25 11:14 Weight: 92.1 kg 03/18/25 11:14 Body Mass Index (BMI) 32.8 03/18/25 11:14 Respiratory Assessment Respiratory Assessment - service crew supervisor: Respiratory Tract Infection Hx - service crew supervisor Hx Respiratory Tract Infection No 03/18/25 10:48 Any additional information?: Yes Hx Respiratory Tract Infection: Yes (Patient has chronic cough.) STOP Sleep Apnea STOP Sleep Apnea - service crew supervisor: STOP Sleep Apnea - service crew supervisor Hx Hypertension Yes 03/17/25 11:47 Hx Sleep Apnea No 03/17/25 11:47 CPAP BIPAP Do you snore loudly (louder Yes 03/17/25 11:47 than talking or can be heard Do you often feel tired/ Yes 03/17/25 11:47 fatigued/ sleepy during daytime? Has anyone observed you stop No 03/17/25 11:47 breathing during sleep? STOP Results Positive 03/17/25 11:47 QUESTION #5 FULL TEXT : Do you snore loudly (louder than talking or can be heard through closed doors)? 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 Specify any problems Hx of Preganancy in last 3 N/A 03/17/25 11:47 Months Nurse Filling Out Transfusion [email or web address] 03/17/25 11:47 & Questions: Date: 03/17/25 03/17/25 11:47 Time: 11:50 03/17/25 11:47 Patient unable to answer at this time (ie. confused, unrespo /Reproduction History /Reproductive History - service crew supervisor: /Reproductive Hx- service crew supervisor Hx Now No 03/18/25 10:48 Gestational Age (in weeks): EDC: Hx Hx Para Hx Section SAB No 03/18/25 10:48 Active Medications Active Medications: Current Medications Generic Name Dose Route Start Last Admin Trade Name Freq PRN Reason Stop Dose Admin Acetaminophen 650 mg 03/17/25 11:46 Acetaminophen 325 Mg Tablet PO Q6H PRN PRN Pain 1-10 Or Fever>100.7 Hydrocodone Bitart/Acetaminophen 1 tablet 03/17/25 11:46 03/18/25 04:29 Hydrocodone Bitartrate/Apap 5/325 Tablet PO 1 tablet DAILY PRN Administration pain Acetylcysteine 800 mg 03/18/25 08:45 Acetylcysteine 800 Mg/4 Ml Vial.Neb. INHALATION Q6HWA.RT JOSH Albuterol Sulfate 2.5 mg 03/17/25 11:53 03/17/25 22:10 Albuterol 2.5 Mg/3 Ml Vial.Neb. INHALATION 2.5 mg Q4H PRN PRN Administration shortness of breath or wheezing Albuterol/Ipratropium 3 ml 03/18/25 08:45 Ipratropium/Albuterol Sulfate 3 Ml Ampul.Neb INHALATION Q6HWA.RT JOSH Aspirin 81 mg 03/18/25 08:00 Aspirin E.C. 81 Mg Tablet PO BREAKFAST JOSH Atorvastatin Calcium 10 mg 03/17/25 22:00 03/17/25 20:56 Atorvastatin Calcium 10 Mg Tablet PO 10 mg QHS JOSH Administration Bupropion HCl 150 mg 03/17/25 22:00 03/17/25 20:55 Bupropion (Sr) 150 Mg Tablet.Sa PO 150 mg BID JOSH Administration Docusate Sodium 200 mg 03/18/25 10:00 Docusate Sodium 100 Mg Capsule PO DAILY [facility] Enoxaparin Sodium 40 mg 03/18/25 10:00 Enoxaparin 40 Mg/0.4 Ml Syringe SC DAILY JOSH Furosemide 40 mg 03/18/25 10:00 Furosemide 40 Mg Tablet PO DAILY [facility] Protocol Gabapentin 400 mg 03/17/25 14:00 03/18/25 06:29 Gabapentin 400 Mg Capsule PO 400 mg TID JOSH Administration Glucagon 1 mg 03/17/25 11:46 Glucagon 1 Mg/Ml Syringe IM X1 PRN Hypoglycemia Protocol Dextrose 250 mls @ 0 mls/hr 03/17/25 11:46 Dextrose 10%-Water IV .Q0M PRN HYPOGLYCEMIA Protocol As Directed Sodium Chloride 100 mls @ 15 mls/hr 03/17/25 11:52 IV .Q6H40M PRN Saline Flush Sodium Chloride 100 mls @ 15 mls/hr 03/17/25 11:52 IV .Q6H40M PRN Additional IVPB Infusion Cefepime HCl 2 gm/ Sodium 100 mls @ 200 mls/hr 03/17/25 14:00 03/18/25 07:26 Chloride IV Infused Q8 JOHS Infusion Lactated Ringer's 1,000 mls @ 15 mls/hr 03/18/25 11:15 03/18/25 11:16 IV 15 mls/hr .Q48H JOSH Administration Insulin Human Lispro 0 unit 03/17/25 16:00 03/18/25 06:39 Insulin Lispro 100 Unit/Ml Insuln.Pen SC 1 units ACHS JOSH Administration Protocol Lansoprazole 30 mg 03/18/25 10:00 Lansoprazole 15 Mg Capsule. PO DAILY JOSH Levothyroxine Sodium 125 mcg 03/18/25 06:00 03/18/25 06:29 Levothyroxine 125 Mcg Tablet PO 125 mcg DAILY@0600 JOSH Administration Melatonin 3 mg 03/17/25 11:46 Melatonin 3 Mg Tablet PO QHS PRN PRN INSOMNIA Methylprednisolone 40 mg 03/17/25 22:00 03/18/25 06:30 Methylprednisolone 40 Mg/Ml Vial IV 40 mg Q8 JOSH Administration Montelukast Sodium 10 mg 03/17/25 22:00 03/17/25 20:56 Montelukast 10 Mg Tablet PO 10 mg QHS JOSH Administration Ondansetron HCl 4 mg 03/17/25 11:46 Ondansetron 4 Mg/2 Ml Vial IV Q8H PRN PRN NAUSEA/VOMITING Pramipexole Dihydrochloride 1 mg 03/17/25 22:00 03/17/25 20:55 Pramipexole Di-Hcl 1 Mg Tablet PO 1 mg BID JOSH Administration Sodium Chloride 10 - 40 ml 03/17/25 11:52 0.9% Saline Lock 10 Ml Syringe IV UD PRN SALINE FLUSH PFSH Medical History On home oxygen therapy Smoker Moderate COPD (chronic obstructive pulmonary disease) Urinary incontinence Thyroid nodule Suprapubic pain Spinal stenosis in cervical region Pneumothorax of left lung after biopsy 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 Lumbar radiculopathy Hyperlipidemia Heavy tobacco smoker Chronic headaches GERD (gastroesophageal reflux disease) Frontal lobe deficit Essential hypertension Dysuria Dyspnea Dyslipidemia DDD (degenerative disc disease) Cough Confusional state Chronic pain Chronic obstructive lung disease Bronchospasm Brachial (cervical) neuritis Back pain Aortic valve regurgitation Acute bronchitis Hypothyroidism Abnormal CT scan, chest Home Medications ?Medication ?Instructions ?Recorded ?Last Taken ?Type lovastatin 40 mg tablet 80 mg PO QHS 06/19/18 03/16/25 History pramipexole 1 mg tablet 1 mg PO BID 09/19/20 03/17/25 History ipratropium 0.5 mg-albuterol 3 mg 3 ml inhalation Q4H PRN PRN SOB 12/18/22 03/17/25 Rx (2.5 mg base)/3 mL nebulization &/OR WHEEZING #180 mL soln docusate sodium 100 mg capsule 200 mg PO DAILY 06/27/23 03/16/25 History gabapentin 400 mg capsule 400 mg PO TID Pain 06/27/23 03/18/25 History montelukast 10 mg tablet 10 mg PO QHS 06/27/23 03/16/25 History furosemide 40 mg tablet 40 mg PO QDAY 03/13/24 03/17/25 History metformin 500 mg tablet 500 mg PO BID 11/02/24 03/17/25 History albuterol sulfate 90 mcg/actuation 2 inh inhalation Q4-6H PRN 03/02/25 Unknown Rx aerosol inhaler shortness of breath or wheezing #8.5 grams bupropion HCl 150 mg tablet,12 hr 150 mg PO BID #60 ea 03/02/25 03/17/25 Rx sustained-release (Wellbutrin SR) fluticasone fur. 100 mcg-umeclid 1 inh inhalation Q24H #60 ea 03/02/25 03/17/25 Rx 62.5 mcg-vilant 25 mcg inhalat.powder (Trelegy Ellipta) hydrocodone-acetaminophen 5-325mg 1 tab PO DAILY PRN pain 03/02/25 03/18/25 History 5mg-325mg aspirin 81 mg tablet,delayed 81 mg PO DAILY 03/17/25 03/17/25 History release (Adult Aspirin Regimen) conjugated estrogens 0.625 mg/gram 0.625 mg vaginal QWEEK 03/17/25 Unknown History vaginal cream (Premarin) lansoprazole 30 mg capsule,delayed 30 mg PO DAILY 03/17/25 03/17/25 History release levothyroxine 125 mcg tablet 125 mcg PO DAILY hypothyroid 03/17/25 03/18/25 History omega 1-hdh-bdv-fish oil 300 1 cap PO BID 03/17/25 03/17/25 History mg-1,000 mg capsule (Fish Oil) Allergy/AdvReac Type Severity Reaction Status Date / Time ciprofloxacin Allergy Mild severe Verified 03/02/25 08:05 upset GI clarithromycin Allergy Mild severe Verified 03/02/25 08:05 upset GI fenofibrate Allergy Mild Verified 03/02/25 08:05 nabumetone Allergy Mild Verified 03/02/25 08:05 oxybutynin Allergy Mild Verified 03/02/25 08:05 Sulfa (Sulfonamide Allergy Mild Verified 03/02/25 08:05 Antibiotics) fesoterodine (From Toviaz) AdvReac Mild Other Verified 03/02/25 08:05 Family History Mother Cancer Lung Heart disease CVA (cerebral vascular accident) Father COPD (chronic obstructive pulmonary disease) Brother Diabetes Kidney disease Surgical History History of lung biopsy History of hysterectomy Social History Smoking Status: Current every day smoker tobacco type: cigarettes Tobacco: How many years used: 50 second hand exposure: Yes alcohol intake: never substance use type: does not use caffeine: Yes Type: coffee what type of physical activity do you participate in: other frequency: daily Review of Systems (Anesthesia) ROS Narrative System reviewed and no additional complaints, except as documented.
[2025-03-18] MEDS: Lidocaine 2% (5ml sdv) 5 ML VIAL.MPF (12:19)
[2025-03-18] MEDS: Lidocaine Jelly 2% 20 ML Syringe (URO-JET) 1 APPLIC (12:19)
--- NOTE | 2025-03-18 12:27 | OP.BRONCH_ITS ---
Patient Name: Saray Aguirre Procedure Date: 03/18/2025 11:41 AM Date of : 1965 Age: 59 Procedure: Bronchoscopy Indications: Mucous plug Providers: Jose F Chang MD Medicines: See the Anesthesia note for documentation of the administered medications Complications: No immediate complications Procedure: Pre-Anesthesia Assessment: - A History and Physical has been performed. Patient meds and allergies have been reviewed. The risks and benefits of the procedure and the sedation options and risks were discussed with the patient. All questions were answered and informed consent was obtained. Patient identification and proposed procedure were verified prior to the procedure by the physician and the nurse in the procedure room. Mental Status Examination: alert and oriented. Airway Examination: normal oropharyngeal airway. Respiratory Examination: poor air movement. CV Examination: normal. ASA Grade Assessment: II - A patient with mild systemic disease. After reviewing the risks and benefits, the patient was deemed in satisfactory condition to undergo the procedure. The anesthesia plan was to use monitored anesthesia care (MAC). Immediately prior to administration of medications, the patient was re-assessed for adequacy to receive sedatives. The heart rate, respiratory rate, oxygen saturations, blood pressure, adequacy of pulmonary ventilation, and response to care were monitored throughout the procedure. The physical status of the patient was re-assessed after the procedure. After I obtained informed consent, the scope was passed under direct vision. Throughout the procedure, the patient's blood pressure, pulse, and oxygen saturations were monitored continuously. The bronchoscope was introduced through the mouth and advanced to the tracheobronchial tree. The procedure was accomplished without difficulty. The patient tolerated the procedure well. Findings: The nasopharynx/oropharynx appears normal. The larynx appears normal. The vocal cords appear normal. The subglottic space is normal. The trachea is of normal caliber. The jessenia is sharp. The tracheobronchial tree of the right lung was examined to at least the first subsegmental level. Bronchial mucosa and anatomy in the right lung are normal; there are no endobronchial lesions, and no secretions. Left Lung Abnormalities: Notable, mucoid secretions were found in the left lower lobe. They were partially obstructing the airway. Therapeutic suctioning was performed. Mucus and mucus plugs were removed from the airway and the airway was cleared. The bronchoscope was advanced until wedged at the desired location for bronchoalveolar lavage. BAL was performed in the left lower lobe of the lung and sent for cell count, bacterial culture, viral smears & culture, and fungal & AFB analysis and cytology. 40 mL of fluid were instilled. 20 mL were returned. The return was mucopurulent. Impression: - Mucous plug - The airway examination of the right lung was normal. - Notable, mucoid secretions were found in the left lower lobe. - Therapeutic suctioning was performed. - Bronchoalveolar lavage was performed. Recommendation: - Await BAL results. Procedure Code(s): --- Professional --- 74082, Bronchoscopy, rigid or flexible, including fluoroscopic guidance, when performed; with therapeutic aspiration of tracheobronchial tree, initial 23357, Bronchoscopy, rigid or flexible, including fluoroscopic guidance, when performed; with bronchial alveolar lavage Diagnosis Code(s): --- Professional --- T17.990A, Other foreign object in respiratory tract, part unspecified in causing asphyxiation, initial encounter R09.89, Other specified symptoms and signs involving the circulatory and respiratory systems CPT copyright 2021 [employer]. All rights reserved. The codes documented in this report are preliminary and upon wallboard worker review may be revised to meet current compliance requirements. DO Jose F Joshua MD 03/18/2025 12:26:26 PM This report has been signed electronically. Number of Addenda: 0 Note Initiated On: 03/18/2025 11:41 AM
--- NOTE | 2025-03-18 12:29 | PCM.POST.ANE ---
Anesthesia: Postop Eval I Current Vital Signs Temperature: 99.2 F Pulse Rate: 98 Blood Pressure: 103/58 Respiratory Rate: 14 Pulse Ox: 95 Oxygen Delivery Method: Simple Mask Oxygen Flow Rate (L/min): 6 Assessment Airway patent: Yes Spontaneous unlabored respirations: Yes Mental status: Awake and Calm nausea: No Vomiting: No Anesthesia Complication: No Fluid Hydration Crystalloid volume administer (ml): 400 Total IV fluid infused: 400 Progress Note Anesthesia document: Postop Eval 1 completed: Yes
[2025-03-18 13:45] LABS: Cytology, Body Fluid / CSF SEE PATHOLOGY REPORT
[2025-03-18] MEDS: Furosemide 40 MG Tablet PO (14:06)
[2025-03-18] MEDS: Lansoprazole 15 MG Capsule.DR 30 MG PO (14:06)
[2025-03-18] MEDS: Docusate Sodium 100 MG Capsule 200 MG PO (14:07)
[2025-03-18] MEDS: Aspirin E.C. 81 MG Tablet PO (14:07)
--- NOTE | 2025-03-18 15:05 | POSTOPAN2_ITS ---
Anesthesia Postop Eval I Sum Postop Eval Completion status Anesthesia document: Postop Eval 1 completed: Yes Anesthesia Postop Eval I Summary Anesthesia Postop Eval I Summary: Anesthesia Postop Eval I: Assessment Summary Airway patent Yes 03/18/25 12:30 [email or web address] Spontaneous unlabored Yes 03/18/25 12:30 CONSTRUCTION [email or web address] respirations Mental status Awake,Calm 03/18/25 12:30 CONSTRUCTION [email or web address] nausea No 03/18/25 12:30 CONSTRUCTION [email or web address] Vomiting No 03/18/25 12:30 [email or web address] Anesthesia Postop Eval I: Fluid Summary Crystalloid volume administer 400 03/18/25 12:30 CONSTRUCTION [email or web address] (ml) Colloids volume administered ( ml) Blood Product volume administered (ml) Total IV fluid infused 400 03/18/25 12:30 [email or web address] Anesthesia Postop Eval I: Summary Notes Anesthesia Complication No 03/18/25 12:30 [email or web address] Anesthesia Complication Comment: Post-operative progress note Anesthesia: Postop Eval II Evaluation Mental status: Awake and Calm Pain Level: 1 nausea: No Vomiting: No Complications Anesthesia Complication: No
--- NOTE | 2025-03-18 15:05 | PCM.POSTANE2 ---
Anesthesia Postop Eval I Sum Postop Eval Completion status Anesthesia document: Postop Eval 1 completed: Yes Anesthesia Postop Eval I Summary Anesthesia Postop Eval I Summary: Anesthesia Postop Eval I: Assessment Summary Airway patent Yes 03/18/25 12:30 [email or web address] Spontaneous unlabored Yes 03/18/25 12:30 [email or web address] respirations Mental status Awake,Calm 03/18/25 12:30 [email or web address] nausea No 03/18/25 12:30 [email or web address] Vomiting No 03/18/25 12:30 [email or web address] Anesthesia Postop Eval I: Fluid Summary Crystalloid volume administer 400 03/18/25 12:30 [email or web address] (ml) Colloids volume administered ( ml) Blood Product volume administered (ml) Total IV fluid infused 400 03/18/25 12:30 [email or web address] Anesthesia Postop Eval I: Summary Notes Anesthesia Complication No 03/18/25 12:30 [email or web address] Anesthesia Complication Comment: Post-operative progress note Anesthesia: Postop Eval II Evaluation Mental status: Awake and Calm Pain Level: 1 nausea: No Vomiting: No Complications Anesthesia Complication: No
[2025-03-18 17:05] LABS: Bedside Glucose 207 mg/dL (74-106)
[2025-03-18 20:17] LABS: Appearance/Body Fluid CLOUDY; Color/Body Fluid COLORLESS; Source- Body Fluid BRONCHIAL LAVAGE
[2025-03-18 20:18] LABS: Red Cell Count/Body Fluid 905 /mm3; White Blood Count/Body Fluid 310 /mm3
[2025-03-18 20:41] LABS: Bedside Glucose 152 mg/dL (74-106)
[2025-03-18] MEDS: 0.9% Saline Lock 10 ML Syringe IV (20:56)
[2025-03-18] MEDS: Montelukast 10 MG Tablet PO (20:59)
[2025-03-18] MEDS: buPROPion (SR) 150 MG Tablet.SA PO (20:59)
[2025-03-18] MEDS: Atorvastatin Calcium 10 MG Tablet PO (20:59)
[2025-03-18] MEDS: Pramipexole Di-HCl 1 MG Tablet PO (20:59)
[2025-03-18 22:26] LABS: Body Fluid QC Type(s) 0501:BF1Q
[2025-03-18 22:54] LABS: Lymphocytes 18 %; Monocytes 6 %
[2025-03-18 22:55] LABS: Mesothelial Cells 0 %
[2025-03-18 22:56] LABS: Plasma Cell/BodyFluid 0 %
[2025-03-18 22:57] LABS: Other Cell Type/BF 12 %
[2025-03-18 22:58] LABS: Neutrophil (Segs) 56 %
[2025-03-18 23:00] LABS: Macrophages 8 %
[2025-03-19] MEDS: Levothyroxine 125 MCG Tablet PO (06:01)
[2025-03-19] MEDS: Gabapentin 400 MG Capsule PO (06:01)
[2025-03-19] MEDS: Ipratropium/Albuterol Sulfate 3 ML AMPUL.NEB INHALATION (06:54)
[2025-03-19 06:55] VITALS: PULSE 75; RESP 18; O2SAT 94
[2025-03-19 07:00] VITALS: PULSE 74
[2025-03-19] MEDS: Cefepime HCl 2 GM in 0.9% Normal Saline (100mL MB+) 100 ML IV (07:34)
[2025-03-19] MEDS: Aspirin E.C. 81 MG Tablet PO (07:38)
[2025-03-19] MEDS: Docusate Sodium 100 MG Capsule 200 MG PO ×2 (07:38→07:55)
[2025-03-19] MEDS: Lansoprazole 15 MG Capsule.DR 30 MG PO (07:38)
[2025-03-19] MEDS: Furosemide 40 MG Tablet PO (07:40)
[2025-03-19] MEDS: buPROPion (SR) 150 MG Tablet.SA PO (07:40)
[2025-03-19] MEDS: Pramipexole Di-HCl 1 MG Tablet PO (07:40)
[2025-03-19 07:50] VITALS: O2SAT 93; O2SAT 95
[2025-03-19 08:00] VITALS: BP 121/69; PULSE 74; RESP 15; TEMP 36; O2SAT 95
--- NOTE | 2025-03-19 08:25 | PCM.PN.INT ---
Assessment & Plan Assessment/Plan (1) Acute on chronic respiratory failure with hypoxemia: PLAN: Plan RECOMMENDATIONS: 1. Supplemental oxygen to maintain saturations at or above 90%. 2. Okay to transition to Levaquin to complete 7 days of therapy. 3. Scheduled bronchodilators and steroids. Recommend 5-day prednisone burst of 40 mg daily. 4. Continue aggressive bronchopulmonary hygiene. 5. Outpatient pulmonary follow-up within 2 weeks of discharge. The patient is otherwise medically stable for discharge home. IMPRESSIONS: 1. Acute on chronic hypoxemic respiratory failure Appears secondary to acute mucous plugging with subsequent left lower lobe consolidation/atelectasis. The patient has known advanced age COPD along with a baseline oxygen requirement of 3 L/min. The patient underwent bronchoscopy on March 18 with therapeutic airway suctioning performed due to mucus impaction involving the left lower lobe. The patient has improved clinically. Plan to continue aggressive bronchopulmonary hygiene along with scheduled bronchodilators, antibiotics and steroids. From my perspective, the patient can be transition to Levaquin to complete 7 days of therapy along with prednisone 40 mg daily x 5 days. She should follow-up in the pulmonary medicine clinic within 2 weeks of discharge. She is otherwise stable for discharge home. 2. Chronic tobacco dependency/hypothyroidism/GERD/hyperlipidemia Complicates care, management, recovery and prognosis. Continue supportive measures as noted above. This note was generated with [employer] dictation software. It may contain incorrect words, spelling, and punctuation that were not noted in checking the note before signing. Subjective Subjective The patient was seen and examined at the bedside this morning. Events from the last 24 hours have been reviewed. The patient is currently afebrile, hemodynamically stable and maintaining appropriate oxygen saturations on 3 L/min via nasal cannula. The patient is feeling much better this morning. She was able to ambulate in the hallway on her baseline requirement. Objective Data Objective Data The patient's most recent lab work, culture data and imaging studies have all been personally reviewed. COVID, influenza and RSV PCR's were negative. BAL cultures are pending. Vital Signs: Vital Signs Temp Pulse Resp BP Pulse Ox O2 Del Method O2 Flow Rate 97.8 F 74 18 152/100 H 94 Nasal Cannula 3 03/18/25 23:00 03/19/25 07:00 03/19/25 06:55 03/18/25 23:00 03/19/25 06:55 03/19/25 06:55 03/19/25 06:55 Oxygen Flow Rate (L/min) 3 Oxygen Delivery Method Nasal Cannula Weight: 203 lb 0.732 oz Body Mass Index (BMI) 32.8 Intake & Output: Intake and Output for Last 24 Hours 03/17/25 03/18/25 03/19/25 23:59 23:59 23:59 Intake Total 1311 1477.75 / 1827.75 950 / 950 Balance 1311911 1477.75 / 1827.75 950 / 950 Lab / Micro Data Attestation: I reviewed the patient's lab results. 03/18/25 04:37 03/18/25 04:37 Labs: Laboratory Results - last 24 hr 03/18/25 04:37: Hemoglobin A1c 6.0 H 03/18/25 08:50: PT 13.0, INR 1.0, APTT 30.3 03/18/25 16:43: POC Glucose 207 H 03/18/25 20:21: POC Glucose 152 H 03/18/25 : Fluid Source BRONCHIAL LAVAGE, Fluid Color COLORLESS, Fluid Appearance CLOUDY, Fluid WBC 310, Fluid RBC 905, Fluid Tot Cell Count TNP, Fluid Neutrophils 56, Fluid Lymphocytes 18, Fluid Monocytes 6, Fluid Plasma Cells 0, Fluid Macrophages 8, Fld Mesothelial Cells 0, Fluid Other Cells 12, Fl Pathologist Comment May follow, Fluid Comment 2 Not Reportable Micro: Microbiology 03/17/25 07:55 Mucosa - Nasopharyngeal SARS-CoV-2, Influenza & RSV (PCR) - Final Radiography Diagnostic Testing: Radiology Impression Chest CTA 03/17/25 08:26 IMPRESSION: 1. No central or definite pulmonary embolism identified allowing for limitations related to contrast timing. 2. Virtually complete LEFT lower lobar consolidation/collapse. Preserved enhancement suggests the absence of superimposed significant pneumonia/pneumonitis although early pneumonia is difficult to entirely exclude. Given mucous impacted bronchi in the region, consider aspiration. Recommend CT chest in 3 months to ensure no underlying central obstructing process as an alternative etiology. Additionally, recommend ongoing lung cancer screening per the below. 3. Borderline RIGHT hilar lymphadenopathy, nonspecific and potentially reactive in the absence of known malignancy. Attention on above follow-up, which should ideally include IV contrast. 4. Additional description as above. The USPSTF recommends annual screening for lung cancer with low-dose computed tomography (LDCT) in adults aged 50 to 80 years who have a 20 pack-year smoking history and currently smoke or have quit within the past 15 years. Reading Location: [facility] Chest X-Ray 03/18/25 03:10 IMPRESSION: No significant interval change in appearance of the chest as above. Reading Location: [facility] Physical Exam Const alert, oriented x3 and no apparent distress Constitutional Narrative: Sitting in bedside recliner. General Appearance: cooperative HEENT normocephalic, head/scalp atraumatic and moist oral mucous membranes Eyes PERRL, EOMs intact bilaterally and conjunctivae normal Neck supple General: trachea midline Chest inspection of chest normal Resp normal respiratory effort Auscultation: diminished lung sounds Cardio regular rate and regular rhythm GI normal to inspection, nondistended, normoactive bowel sounds Extremity no clubbing, cyanosis or edema Skin no rashes or lesions noted Neuro CN's II-XII intact bilaterally, moves all extremities and no focal motor deficits Psych cooperative and affect normal Charges/Coding Visit Charges Inpatient E&M: 65819 Subs Hosp L2
[2025-03-19 09:26] LABS: Bedside Glucose 123 mg/dL (74-106)
[2025-03-19 10:13] VITALS: O2SAT 92; O2SAT 95
--- NOTE | 2025-03-19 10:31 | PCM.DC.SUM ---
Providers Date of Admission: 03/17/25 Date of Discharge: 03/19/25 Primary Care Physician: FELIX Pepe Consultations 03/17/25 11:46 Consult: Insurance Underwriting Assistant / Pulmonary Medicine Routine Consulting Provider: Intensivists/Pulmonary Med Reason for Consult: recurrent mucus plugging EMERGENT Consult: No MD Notified: Yes Date Notified: 03/17/25 Time Notified: 11:23 Method of Notification: Text Reason For Visit: SOB SUSPECTED 2/2 TO MUCUS PLUGGING Diagnosis Discharge Diagnosis (1) Acute on chronic respiratory failure with hypoxemia: Status: Chronic Code(s): J96.21 - Acute and chronic respiratory failure with hypoxia Medications at Discharge Home Medications lovastatin 40 mg tablet 80 mg PO QHS 06/19/18 pramipexole 1 mg tablet 1 mg PO BID 09/19/20 ipratropium 0.5 mg-albuterol 3 mg (2.5 mg base)/3 mL nebulization soln 3 ml inhalation Q4H PRN PRN SOB &/OR WHEEZING #180 mL 12/18/22 docusate sodium 100 mg capsule 200 mg PO DAILY 06/27/23 gabapentin 400 mg capsule 400 mg PO TID Pain 06/27/23 montelukast 10 mg tablet 10 mg PO QHS 06/27/23 furosemide 40 mg tablet 40 mg PO QDAY 03/13/24 metformin 500 mg tablet 500 mg PO BID 11/02/24 albuterol sulfate 90 mcg/actuation aerosol inhaler 2 inh inhalation Q4-6H PRN shortness of breath or wheezing #8.5 grams 03/02/25 bupropion HCl 150 mg tablet,12 hr sustained-release (Wellbutrin SR) 150 mg PO BID #60 ea 03/02/25 fluticasone fur. 100 mcg-umeclid 62.5 mcg-vilant 25 mcg inhalat.powder (Trelegy Ellipta) 1 inh inhalation Q24H #60 ea 03/02/25 hydrocodone-acetaminophen 5-325mg 5mg-325mg 1 tab PO DAILY PRN pain 03/02/25 aspirin 81 mg tablet,delayed release (Adult Aspirin Regimen) 81 mg PO DAILY 03/17/25 conjugated estrogens 0.625 mg/gram vaginal cream (Premarin) 0.625 mg vaginal QWEEK 03/17/25 lansoprazole 30 mg capsule,delayed release 30 mg PO DAILY 03/17/25 levothyroxine 125 mcg tablet 125 mcg PO DAILY hypothyroid 03/17/25 omega 6-ueb-jug-fish oil 300 mg-1,000 mg capsule (Fish Oil) 1 cap PO BID 03/17/25 levofloxacin 750 mg tablet 750 mg PO DAILY 5 days #5 tabs 03/19/25 Hospital Course Operations None Procedures Bronchoscopy, EKG and - (Chest x-ray, CTA chest) Summary of Care Provided Minutes Spent on Discharge: 35 Hospital Course: Patient is a 59-year-old female who presented to [facility] ED on 03/17/25 with acute onset shortness of breath. Hospital course as noted below. Patient discharged home in stable condition on 03/19. 1. Recurrent mucous plugging with community-acquired pneumonia in setting of severe COPD/emphysema with chronic hypoxic respiratory failure ? Pulmonology followed. Presentation was most consistent with recurrent mucous plugging; had similar hospitalization in June 2024 with bronchoscopy required to relieve mucous plugging. CTA chest showed no PE, did show a virtually complete left lower lobe consolidation/collapse concerning for recurrent mucous plugging versus pneumonia. Bronchoscopy on 03/18 with mucous plug removed with therapeutic suctioning. Per pulmonology, will treat with 7-day course of antibiotics total and continue aggressive pulmonary hygiene on discharge. No need for further steroids on discharge. Completed oxygen testing on day of discharge and did not require more than her home 2 L nasal cannula at rest and with exertion. Will have close outpatient follow-up with phonology in the office after discharge. 2. Tobacco use disorder ? Denied need for NRT while inpatient. Continue home bupropion on discharge. Chronic medical conditions: ? Class I obesity: BMI 32 on admit. Complicated hospital course, care and prognosis. ? Seasonal allergies: Continue home Singulair. ? Hypothyroidism: Continue home Synthroid. ? GERD: Continue home PPI. ? Hyperlipidemia: Continue home statin. ? Restless leg syndrome: Continue home pramipexole. ? Lumbar radiculopathy: Continue home hydrocodone?acetaminophen as needed and scheduled gabapentin. ? Type 2 diabetes mellitus: Treated with sliding scale insulin with meals while inpatient with good glucose control. Okay to resume home metformin on discharge. Total clinical time spent by myself addressing the patient's medical issues, reviewing all the data, and collaborating with patient's care team: 35 minutes. Physical Exam Const alert, oriented x3 and no apparent distress Constitutional Narrative: Upper middle-aged female, class I obesity, appears older than stated age, energy improved from admission, sitting up comfortably in bed, conversing normally, in no acute distress. General Appearance: cooperative and comfortable HEENT normocephalic, head/scalp atraumatic, hearing grossly normal bilaterally, nasal mucous membranes and turbinates normal and moist oral mucous membranes Eyes PERRL, EOMs intact bilaterally and conjunctivae normal Neck full ROM Chest inspection of chest normal Resp normal respiratory effort and no use of accessory muscles Resp Narrative: Breathing comfortably on 2 L nasal cannula at rest. Breath sounds much improved in left lung base and otherwise good breath sounds throughout with no wheezing or crackles noted. Much improved from admission. Cardio regular rate, regular rhythm, no murmurs and peripheral pulses 2+ throughout GI normal to inspection, nondistended, normoactive bowel sounds, soft to palpation, non-tender and non-distended Back/Spine normal ROM Extremity normal to inspection, full ROM and no pedal edema Skin no rashes or lesions noted Psych mental status grossly normal Weight / BMI Weight Weight: 92.1 kg Body Mass Index (BMI) 32.8 ABG / Lab / Microbiology Data 03/18/25 04:37 03/18/25 04:37 Laboratory: Laboratory Results - last 24 hr 03/18/25 16:43: POC Glucose 207 H 03/18/25 20:21: POC Glucose 152 H 03/18/25 : Fluid Source BRONCHIAL LAVAGE, Fluid Color COLORLESS, Fluid Appearance CLOUDY, Fluid WBC 310, Fluid RBC 905, Fluid Tot Cell Count TNP, Fluid Neutrophils 56, Fluid Lymphocytes 18, Fluid Monocytes 6, Fluid Plasma Cells 0, Fluid Macrophages 8, Fld Mesothelial Cells 0, Fluid Other Cells 12, Fl Pathologist Comment May follow, Fluid Comment 2 Not Reportable 03/19/25 07:37: POC Glucose 123 H Microbiology: Microbiology 03/18/25 Unknown Bronchial Lavage - Left Lower Lobe Gram Stain - Final 03/17/25 07:55 Mucosa - Nasopharyngeal SARS-CoV-2, Influenza & RSV (PCR) - Final D/C Instructions DC O2, CPAP, BIPAP Needs Home O2 Discharge instructions: No Meaningful Use Info Meaningful Use Meaningful Use Diagnoses (Choose all that apply): None applicable Ischemic Stroke Statin Dosing Therapy Reference: STATIN DOSE THERAPY REFERENCE: * Patients > 75 years receive moderate or high dose statin therapy. * Patients 75 years or YOUNGER should receive HIGH intensity statin dose unless contraindicated. You will be required to document reason for non-treatment if statin daily dose does not meet guidelines. HIGH DOSE STATIN THERAPY DAILY Atorvastatin > than or = to 40 mg Rosuvastatin > than or = to 20 mg Amlodipine + Atorvastatin > than or = to 2.5/40 mg Ezetimibe + Simvastatin 10/80 mg Simvastatin 80mg Discharge Plan Admission Admit Date/Time: 03/17/25 11:20 Primary Reason for Your Visit: Shortness of breath Attending Provider: Kel Murphy Primary Care Provider: Tabitha Sandoval PATIENT SAFETY ATTENDANT Discharge Orders/Prescriptions Prescriptions: New levofloxacin 750 mg tablet 750 mg PO DAILY 5 Days Qty: 5 0RF Continued lovastatin 40 mg tablet 80 mg PO QHS pramipexole 1 mg tablet 1 mg PO BID ipratropium-albuterol 0.5 mg-3 mg(2.5 mg base)/3 mL solution for nebulization 3 ml inhalation Q4H PRN PRN (Reason: SOB &/OR WHEEZING) Qty: 180 6RF furosemide 40 mg tablet 40 mg PO QDAY metformin 500 mg tablet 500 mg PO BID hydrocodone-acetaminophen 5-325 mg tablet 1 tab PO DAILY PRN (Reason: pain) Trelegy Ellipta 100-62.5-25 mcg blister with device 1 inh inhalation Q24H Qty: 60 5RF albuterol sulfate 90 mcg/actuation HFA aerosol inhaler 2 inh inhalation Q4-6H PRN (Reason: shortness of breath or wheezing) Qty: 8.5 5RF bupropion HCl [Wellbutrin SR] 150 mg tablet sustained-release 12 hr 150 mg PO BID Qty: 60 6RF gabapentin 400 mg capsule 400 mg PO TID Patient Comments: TAKE 1 CAPSULE BY MOUTH THREE TIMES DAILY FOR 90 DAYS docusate sodium 100 mg capsule 200 mg PO DAILY Patient Comments: TAKE 1 CAPSULE BY MOUTH 1 (ONE) or 2 (TWO) times a day NEEDED montelukast 10 mg tablet 10 mg PO QHS Patient Comments: TAKE 1 TABLET BY MOUTH AT BEDTIME Premarin 0.625 mg/gram cream 0.625 mg vaginal QWEEK Patient Comments: pt has not started yet levothyroxine 125 mcg tablet 125 mcg PO DAILY lansoprazole 30 mg capsule,delayed release(DR/EC) 30 mg PO DAILY aspirin [Adult Aspirin Regimen] 81 mg tablet,delayed release (DR/EC) 81 mg PO DAILY omega 1-jiy-oxd-fish oil [Fish Oil] 300-1,000 mg capsule 1 cap PO BID Referrals / Follow Up: Jose F Chang DO [Med Staff - Active Staff] - Tabitha Sandoval PATIENT SAFETY ATTENDANT, PATIENT SAFETY ATTENDANT-C [Primary Care Provider] - Disposition Disposition (needs filled in before D/C Order can be placed): Home, Self Care Charges/Coding Visit Charges Inpatient E&M: 05034 Disch Hosp >30min
--- NOTE | 2025-03-19 10:46 | CASEMGMT ---
Patient has order for discharge. Patient is maintaining on home oxygen. Patient is up independent in room. Patient denies needs or help at discharge. Patient has portable oxygen at discharge. Patient had no further questions or concerns.
[2025-03-24 13:54] LABS: Pathologist Comment/Body Fluid Reviewed
== END 2025-03-19 10:55 | disposition home or self-care (01) | DRG 205 ==
LOC: ED 11:12 → PCU 11:26
PROVIDERS: Anesthesiology; Internal Medicine Critical Care Medicine; Admitting Provider Hospitalist; Emergency Provider Surgery; PCP Nurse Practitioner Family; Visit Provider Hospitalist
PROC: 0BJ08ZZ Inspection of Tracheobronchial Tree, Via Natural or Artificial Opening Endoscopic (ICD-10-PCS; CPT 31622; principal; 2025-03-18 11:45)
DX: T17.890A Other foreign object in other parts of respiratory tract causing asphyxiation, initial encounter (principal); J96.21 Acute and chronic respiratory failure with hypoxia; J18.9 Pneumonia, unspecified organism; E87.3 Alkalosis; J44.0 Chronic obstructive pulmonary disease with (acute) lower respiratory infection; J44.1 Chronic obstructive pulmonary disease with (acute) exacerbation; J98.11 Atelectasis; E03.9 Hypothyroidism, unspecified; I10 Essential (primary) hypertension; G25.81 Restless legs syndrome; E66.811 Obesity, class 1; J43.9 Emphysema, unspecified; J30.2 Other seasonal allergic rhinitis; K21.9 Gastro-esophageal reflux disease without esophagitis; M54.16 Radiculopathy, lumbar region; E78.5 Hyperlipidemia, unspecified; F17.200 Nicotine dependence, unspecified, uncomplicated; Z11.52 Encounter for screening for COVID-19; Z68.32 Body mass index [BMI] 32.0-32.9, adult; R59.0 Localized enlarged lymph nodes; Z79.890 Hormone replacement therapy; Z79.899 Other long term (current) drug therapy; Z79.82 Long term (current) use of aspirin; Z79.02 Long term (current) use of antithrombotics/antiplatelets; Z88.8 Allergy status to other drugs, medicaments and biological substances
CPT/HCPCS: 36415; 71045; 71046; 71275; 80048; 82803; 82962; 83036; 83605; 83880; 84484; 85025; 85027; 85379; 85610; 85730; 87015; 87070; 87077; 87116; 87186; 87205; 87206; 87252; 87631; 88108; 88305; 88313; 89050; 93005; 94640; 94668; 99285; 99406; Q9967; A4216; J0295; J2405

== ENCOUNTER → 2025-04-22 | Outpatient (CLI) | payer MEDICARE, MEDICAID, SELFPAY | END | disposition home or self-care (01) | LOC: PSN 09:11 | PROVIDERS: PCP Nurse Practitioner Family; Referring Provider Nurse Practitioner Family; Visit Provider Nurse Practitioner Family | DX: J43.2 Centrilobular emphysema (principal) | CPT/HCPCS: 94060; 94726; 94729 ==

== ENCOUNTER → 2025-05-24 | Outpatient (CLI) | payer MEDICARE, MEDICAID, SELFPAY | END | disposition home or self-care (01) | LOC: CT 08:07 | PROVIDERS: PCP Nurse Practitioner Family; Referring Provider Nurse Practitioner Family; Visit Provider Nurse Practitioner Family | DX: R93.89 Abnormal findings on diagnostic imaging of other specified body structures (principal); F17.200 Nicotine dependence, unspecified, uncomplicated | CPT/HCPCS: 71250 ==

== ENCOUNTER → 2025-10-09 | Outpatient (CLI) | payer MEDICARE, MEDICAID, SELFPAY ==
--- NOTE | 2025-10-09 08:56 | CT_ITS ---
PROCEDURE: LOW DOSE CT LUNG SCREENING 10/09/2025 REASON FOR EXAM: SMOKER TECHNIQUE: Procedure Code: [id number] Modality: CT Procedure: LOW DOSE CT LUNG SCREENING Coronal and Sagittal reconstruction series were provided. One or more dose reduction techniques were used (e.g., Automated exposure control, adjustment of the mA and/or kV according to patient size, use of iterative reconstruction technique). [facility] LINK: [facility] COMPARISON: 05/24/2025. FINDINGS: Severe centrilobular emphysematous changes are noted, more pronounced within the upper lobes. This is similar to the previous study. Intervening areas of mild scarring are noted throughout both lungs. This is similar to the previous study. A spiculated 2.2 by 1.8 by 2.4 cm irregularly shaped density is noted in the posterior aspect of the right upper lobe, with tethering to the pleural surface of the right major fissure. This is new since the previous study. The heart is normal in size. Mild atherosclerotic calcifications. No thoracic lymphadenopathy is identified on this limited evaluation. No acute fracture. Moderate thoracic spondylosis, similar to the previous study. CT/Low Dose CT Lung Screening IMPRESSION: Lung-RADS Category: 4XS VERY SUSPICIOUS WITH ADDITIONAL FEATURES THAT INCREASE SUSPICION FOR LUNG CANCER. Further evaluation with a whole-body PET-CT scan is recommended. Other Significant Findings: S. Reading Location: [id number]
--- OUTSIDE RECORDS SUMMARY | 2025-10-09 09:04 | XMS RPT_ITS | CCD ---
Author Organization [facility] Care Team Providers Care Children Counselor Name Role Phone Trill SPACE ENGINEER.Liudmila DOWNS Primary Care Provider Lori REMOTE ADVISOR, REMOTE ADVISOR-C Liudmila Primary Care Provider Dr. Paul Bower Other Provider Dr. Jose F Chang Attending Provider Dr. Paul Bower Referring Provider Trill SPACE ENGINEER.Liudmila DOWNS Primary Care Provider Lori REMOTE ADVISOR, REMOTE ADVISOR-C Liudmila Primary Care Provider Dr. Daniel Claire Admit Provider Dr. Daniel Claire Attending Provider Dr. Daniel Claire Other Provider Dr. Paul Bower Other Provider Dr. Jose F Chang Attending Provider Dr. Jose F Chang Other Provider Dr. Carlos Alberto Frausto Other Provider Dr. Mart Hernandez Other Provider Unavail tammie Lindo NP, REMOTE ADVISOR-C Jessi Other Provider Dr. Maritza Carcamo Other Provider Dr. Maritza Carcamo Attending Provider Trihemant REMOTE ADVISOR, REMOTE ADVISOR-C Liudmila Primary Care Provider Dr. Daniel Claire Admit Provider Dr. Daniel Claire Attending Provider Dr. Daniel Claire Other Provider Dr. Paul Bower Other Provider Dr. Jose F Chang Attending Provider Dr. Jose F Chang Other Provider Dr. Carlos Alberto Frausto Other Provider Dr. Mart Hernandez Other Provider Unavailab tammie Lindo REMOTE ADVISOR, REMOTE ADVISOR-C Jessi Other Provider Dr. Maritza Carcamo Referring Provider Dr. Maritza Carcamo Other Provider Dr. Maritza Carcamo Attending Provider Trill REMOTE ADVISOR, REMOTE ADVISOR-C Liudmila Referring Provider Belgica REMOTE ADVISOR, REMOTE ADVISOR-C Jessi Attending Provider Annette Horan RN Unavailable Unavailable Trill SPACE ENGINEER.FAST FOOD CASHIER, Liudmila C Primary Care Provider Rohit Mosqueda DO Primary Care Provider Mayra Jin RN Unavailable Unavailable Trill REMOTE ADVISOR, REMOTE ADVISOR-C Liudmila Primary Care Provider Trill REMOTE ADVISOR, REMOTE ADVISOR-C Liudmila Referring Provider Dr. Paul Bower Attending Provider Trill SPACE ENGINEER.FAST FOOD CASHIER, Liudmila C Primary Care Provider Trill REMOTE ADVISOR-C, Liudmila Primary Care Provider Trill REMOTE ADVISOR-C, Liudmila Referring Provider Edinson BILL-CAnita Attending Provider Dr. Wayne Waterman DO Emergency Provider Dr. Kel Murphy DO Admit Provider Dr. Kel Murphy DO Attending Provider Jeffrey GREENE, Dr. Begum Referring Provider Jeffrey GREENE, Dr. Begum Other Provider [phone] Kendall WASHBURN, Dr. Justice Other Provider Madai WASHBURN, Dr. Lim Other Provider Sathish WASHBURN, Dr. Miller Other Provider Bernardo GREENE, Dr. Kohler Attending Provider Bernardo GREENE, Dr. Kohler Other Provider Chelsey WASHBURN, Dr. Evin Sheriff Other Provider Maria R WASHBURN, Dr. Beaulieu Other Provider [phone] Alexandre WASHBURN, Dr. Bautista Other Provider Khanh WASHBURN, Dr. Saunders Other Provider [phone] Stephania WASHBURN, Dr. Arthur Other Provider [phone] Jeff WASHBURN, Dr. Campuzano Other Provider [phone] Dr. Oscar Amador MD Other Provider [phone] Maddi WASHBURN, Dr. Proctor Other Provider Nikolay WASHBURN, Dr. Caruso Other Provider Unavailabl tamara Jimenez MD, Dr. Sanon Other Provider [phone] Dori WASHBURN, Dr. Waters Other Provider Dr. Hola Mullen MD Other Provider Dr. Arturo Bradford MD Other Provider Dr. Jacky Chavez DO Other Provider Dr. Juan Ramon Patterson MD Other Provider [phone] Amira WASHBURN, Dr. Stephens Other Provider Dr. Brian Patton DO Other Provider Jp WASHBURN, Dr. Brooks Other Provider Dequan WASHBURN, Dr. Paiz Other Provider Dr. Franco Quach MD Attending Provider Dr. Franco Quach MD Referring Provider Anita Diop Referring Provider MIGUEL ANGEL BEE Attending Unavailable TRILL, LIDUMILA C Primary Care Unavailable SARAY VILLEGAS Referring Unavailable SARAY VILLEGAS Admitting Unavailable TRILL, LIUDMILA C Primary Care Unavailable SARAY VILLEGAS Attending Unavailable JESSI BOWSER Referring Unavailable TRILL, LIUDMILA C Primary Care Unavailable SARAY VILLEGAS Attending Unavailable TRILL, LIUDMILA C Primary Care Unavailable VILLEGASSARAY Attending Unavailable TRILL, LIUDMILA C Primary Care Unavailable TRILL, LIUDMILA C Primary Care Unavailable SARAY VILLEGAS Attending Unavailable TRILL, LIUDMILA C Primary Care Unavailable DOJESSI LOPEZ Attending Unavailable TRILL, LIUDMILA C Primary Care Unavailable ROSALBA TAI Attending Unavailable TRILL, LIUDMILA C Primary Care Unavailable SARAY VILLEGAS Referring Unavailable TRILL, LIUDMILA C Primary Care Unavailable SARAY VILLEGAS Attending Unavailable TRILL, LIUDMILA C Referring Unavailable TRILL, LIUDMILA C Primary Care Unavailable DOOKJESSI MITCHELL Attending Unavailable TRILL, LIUDMILA C Primary Care Unavailable TRILL, LIUDMILA C Referring Unavailable TRILL, LIUDMILA C Primary Care Unavailable TRILL, LIUDMILA C Attending Unavailable TRILL, LIUDMILA C Primary Care Unavailable TRILL, LIUDMILA C Primary Care Unavailable TRILL, LIUDMILA C Attending Unavailable TRILL, LIUDMILA C Attending Unavailable TRILL, LIUDMILA C Primary Care Unavailable TRILL, LIUDMILA C Primary Care Unavailable TRILL, LIUDMILA C Referring Unavailable TRILL, LIUDMILA C Referring Unavailable TRILL, LIUDMILA C Primary Care Unavailable MIKE ABARCA Referring Unavailable TRILL, LIUDMILA C Primary Care Unavailable TRILL, LIUDMILA C Referring Unavailable TRILL, LIUDMILA C Primary Care Unavailable TRILL, LIUDMILA C Primary Care Unavailable ROSSANA HERNANDEZ Attending Unavailable TRILL, LIUDMILA C Attending Unavailable TRILL, LIUDMILA C Primary Care Unavailable ROSSANA HERNANDEZ A Attending Unavailable TRILL, LIUDMILA C Primary Care Unavailable TRILL, LIUDMILA C Attending Unavailable TRILL, LIUDMILA C Primary Care Unavailable TRILL, LIUDMILA C Primary Care Unavailable TRILL, LIUDMILA C Referring Unavailable TRILL, LIUDMILA C Referring Unavailable TRILL, LIUDMILA C Primary Care Unavailable TRILL, LIUDMILA C Referring Unavailable TRILL, LIUDMILA C Attending Unavailable TRILL, LIUDMILA C Primary Care Unavailable TRILL, LIUDMILA C Primary Care Unavailable TRILL, LIUDMILA C Attending Unavailable SELF Referring Unavailable TRILL, LIUDMILA C Primary Care Unavailable TRILL, LIUDMILA C Attending Unavailable TRILL, LIUDMILA C Attending Unavailable TRILL, LIUDMILA C Primary Care Unavailable TRILL, LIUDMILA C Referring Unavailable TRILL, LIUDMILA C Primary Care Unavailable TRILL, LIUDMILA C Referring Unavailable TRILL, LIUDMILA C Primary Care Unavailable TRILL, LIUDMILA C Primary Care Unavailable ROSSANA HERNANDEZ Attending Unavailable Trill REMOTE ADVISOR, Liudmila Primary Care Unavailable Jessi Lindo NP Referring Unavailable [place] BILL, Jessi Attending Unavailable Kel Murphy Admitting Unavailable Kel Murphy Attending Unavailable Sussy Argueta Consulting Unavailable Trill REMOTE ADVISOR, Liudmila Primary Care Unavailable Raphael Aj Consulting Unavailable Paul Bower Consulting Unavailable Jose F Chang Consulting Unavailable Evin Barbosa Consulting Unavailable Christofer Heck Consulting Unavailable Michele Schroeder Consulting Unavailable Nicky Cassidy Consulting UnavailJerson Dai Consulting Unavailable Justen Aguilar Consulting Unavailable Oscar Amador Consulting Unavailable Esthela Linda Consulting Unavailable Shady Link Consulting Unavailable Talita Jimenez Consulting Unavailable Jt Meadows Consulting Unavailable Hola Mullen Consulting Unavailable Arturo Bradford Consulting Unavailable Jacky Chavez Consulting Unavailable Juan Ramon Patterson Consulting Unavailable Angelo Collier Consulting Unavailable Brian Patton Consulting Unavailable Todd Trammell Consulting Unavailable Chencho Baires Consulting Unavailable Trill REMOTE ADVISOR, Liudmila Primary Care Unavailable [place] BILL, Jessi Attending Unavailable Trill REMOTE ADVISOR, Liudmila Referring Unavailable Anita Neves Attending Unavailable Trill REMOTE ADVISOR, Liudmila Primary Care Unavailable Trill REMOTE ADVISOR, Liudmila Referring Unavailable Anita Neves Attending Unavailable Trill REMOTE ADVISOR, Liudmila Primary Care Unavailable Trill REMOTE ADVISOR, Liudmila Referring Unavailable Anita Neves Attending Unavailable Trill REMOTE ADVISOR, Liudmila Referring Unavailable Trill REMOTE ADVISOR, Liudmila Primary Care Unavailable Kel Murphy Referring Unavailable Kel Murphy Admitting Unavailable Sussy Argueta Consulting Unavailable Trill REMOTE ADVISOR, Liudmila Primary Care Unavailable Jose F Chang Attending Unavailable Raphael Aj Consulting Unavailable Paul Bower Consulting Unavailable Jose F Chang Consulting Unavailable Evin Barbosa Consulting Unavailable Christofer Heck Consulting Unavailable Michele Schroeder Consulting Unavailable Nicky Cassidy Consulting UnavailJerson Dai Consulting Unavailable Justen Aguilar Consulting Unavailable Oscar Amador Consulting Unavailable Esthela Linda Consulting Unavailable Shady Link Consulting Unavailable Talita Jimenez Consulting Unavailable Marzena Meadowstam Consulting Unavailable Hola Mullen Consulting Unavailable Arturo Bradford Consulting Unavailable Jacky Chavez Consulting Unavailable Juan Ramon Patterson Consulting Unavailable Angelo Collier Consulting Unavailable Brian Patton Consulting Unavailable Todd Trammell Consulting Unavailable Chencho Baires Consulting Unavailable Kel Murphy Consulting Unavailable Kel Murphy Attending Unavailable Lori REMOTE ADVISOR, [facility] Unavailable Anita Neves Referring Unavailable Jose F Chang Attending Unavailable Lori REMOTE ADVISOR, [facility] Unavailable Gage Quachril Referring Unavailable Gage Quachril Attending Unavailable Anita Neves Attending Unavailable Anita Neves Referring [facility], [facility] Care Unavailable Anita Neves Attending Unavailable Anita Neves Referring Unavailable [facility] Unavailable Tabatha Farrar Referring Unavailable [facility] Unavailable Tabatha Farrar Attending Unavailable Allergies Allergy Classification Reported Allergen(s) Allergy Type Date of Onset Reaction(s) Facility Budesonide / formoterol (2 sources) Budesonide / formoterol Drug Allergy 10-19-20 20 Shortness of Breath [facility] Doxycycline (2 sources) Doxycycline Drug Allergy 03-25-20 23 GI Upset [facility] Fenofibrate (2 sources) Fenofibrate Drug Allergy 12-23-19 16 Intolerance [facility] fesoterodine (2 sources) fesoterodine Drug Allergy 01-12-20 19 Unknown [facility] Macrolides (antibiotic) (2 sources) Clarithromycin Drug Allergy 01-18-20 17 GI Upset [facility] Nicotine (2 sources) Nicotine Drug Allergy 05-08-20 18 Hives [facility] NSAIDs (2 sources) nabumetone Drug Allergy 01-19-20 17 Intolerance, Itching [facility] oxybutynin (2 sources) oxybutynin Drug Allergy 12-23-19 16 Intolerance [facility] Quinolones (antibiotic) (2 sources) Ciprofloxacin Drug Allergy 06-28-20 16 Intolerance [facility] Sucralfate (2 sources) Sucralfate Drug Allergy 01-15-20 20 Intolerance [facility] Sulfonamides (antibiotic) (2 sources) Sulfonamides (Antibiotic) Drug Allergy 09-04-20 14 Unknown [facility] (20 sources) Budesonide / formoterol; Translations: [BUDESONIDE-FORMOT MARLY] Drug Allergy 10-19-20 20 Shortness of Breath [facility] (20 sources) Ciprofloxacin; Translations: [CIPROFLOXACIN] Drug Allergy 06-28-20 16 Other: See Comments, Intolerance [facility] (20 sources) Clarithromycin; Translations: [CLARITHROMYCIN] Drug Allergy 01-18-20 17 GI Upset [facility] (20 sources) Fenofibrate; Translations: [FENOFIBRATE] Drug Allergy 12-23-19 16 Other: See Comments, Intolerance [facility] (20 sources) fesoterodine; Translations: [FESOTERODINE] Drug Allergy 01-12-20 19 Unknown [facility] Work Phone: Comment on above: could not urinate, U TI (20 sources) nabumetone; Translations: [NABUMETONE] Drug Allergy 01-19-20 17 Itching, Other: See Comments, Intolerance [facility] (20 sources) Nicotine; Translations: [NICOTINE] Drug Allergy 05-08-20 18 Hives [facility] Work Phone: (20 sources) oxybutynin; Translations: [OXYBUTYNIN] Drug Allergy 12-23-19 16 Other: See Comments, Intolerance [facility] (20 sources) Sucralfate; Translations: [SUCRALFATE] Drug Allergy 01-15-20 20 Intolerance [facility] Work Phone: (20 sources) Sulfonamides (Antibiotic); Translations: [SULFA (SULFONAMIDE ANTIBIOTICS)] Propensity to adverse reactions to drug 09-04-20 14 Unknown [facility] (20 sources) Budesonide / formoterol Drug Allergy 10-19-20 20 Shortness of Breath [facility] (11 sources) Sulfonamides (Antibiotic) Allergy to substance 05-14-20 22 [facility] (6 sources) risankizumab Drug Allergy 02-20-20 23 Itching [facility] Work Phone: (20 sources) Doxycycline; Translations: [DOXYCYCLINE HCL] Drug Allergy 03-25-20 23 GI Upset [facility] (20 sources) terbinafine; Translations: [TERBINAFINE] Drug Allergy 07-31-20 24 GI Upset [facility] (20 sources) Adhesive Tape-Silicones; Translations: [ADHESIVE TAPE-SILICONES] Drug Intolerance 11-03-20 24 Rash [facility] (1 source) Ciprofloxacin Drug Allergy 06-02-20 25 [facility] (1 source) Clarithromycin Drug Allergy 06-02-20 [facility] (1 source) Fenofibrate Drug Allergy 06-02-20 25 [facility] (1 source) fesoterodine Drug Allergy 06-02-20 [facility] (1 source) nabumetone Drug Allergy 06-02-20 [facility] (1 source) oxybutynin Drug Allergy 06-02-20 25 [facility] (1 source) Sulfonamides (Antibiotic) Drug allergy (disorder) 06-02-20 [facility] Medications Current Medications Medication Drug Class(es) Dates Sig (Normalized) Sig (Original) [id number] 200 actuat albuterol 0.09 mg/actuat metered dose inhaler (20 sources) beta2-Adrenergic Agonist Start: 03-02-2025 Albuterol Sulfate 90 mcg/actuation HFA aerosol inhaler Active 2 NMA INHALATION EVERY 4-6 HOURS as needed for shortness of breath or wheezing 8.5 5 March 02, 2025 12:00am Start: 06-30-2019 End: 06-30-2023 Albuterol Sulfate (Proventil Hfa) 90 mcg/actuation HFA aerosol inhaler Discontinued 2 NMA INHALATION Q4H as needed for shortness of breath or wheezing 18 11 November 20, 2021 12:43pm June 30, 2023 10:44am Obstructive sleep apnea (adult) (pediatric) Start: 06-30-2019 End: 06-30-2023 take 1 puff(s) by inhalation every four hours Albuterol Sulfate (Proventil Hfa) 90 mcg/actuation HFA aerosol inhaler Discontinued 2 PUFF INHALATION Q4H November 20, 2021 12:43pm June 30, 2023 10:44am Start: 06-19-2018 End: 12-18-2022 take 2.5 mg by inhalation every four hours as needed for wheezing Albuterol Sulfate 2.5 mg /3 mL (0.083 %) solution for nebulization Discontinued 2.5 mg INHALATION Q4H as needed for shortness of breath or wheezing 180 November 20, 2021 12:43pm December 18, 2022 9:25am Start: 06-19-2018 End: 06-30-2019 Albuterol Sulfate (Proventil Hfa) 90 mcg/actuation HFA aerosol inhaler Discontinued 2 NMA INHALATION Q4H as needed June 19, 2018 12:00am June 30, 2019 1:55pm Start: 06-19-2018 End: 06-30-2019 take 1 puff(s) by inhalation every four hours Albuterol Sulfate (Proventil Hfa) 90 mcg/actuation HFA aerosol inhaler Discontinued 2 PUFF INHALATION Q4H June 19, 2018 12:00am June 30, 2019 1:55pm Start: 11-26-2017 End: 12-27-2023 albuterol (PROVENTIL) 2.5 mg /3 mL (0.083 %) nebulizer solution Indications: Centrilobular emphysema (HCC) Use 3 mL via nebulizer every 6 hours as needed. 90 Vial 5 11/26/2017 12/27/2023 Discontinued take 2 puff(s) by in halation every six hours as needed albuterol HFA (PROVENTIL HFA, VENTOLIN HFA) 90 mcg/actuation inhaler 2 puff Every 6 hours as needed Inhalation PRN Active Comment on above: 2 puff Every 6 hours as needed Inhalation PRN Use 3 mL via nebuliz er every 6 hours as needed. albuterol 0.833 mg/ml / ipratropium bromide 0.167 mg/ml inhalation solution (20 sources) Anticholinergic, beta2-Adrenergic Agonist Start: 12-18-19 End: 06-02-20 take 1 mL by inhalation every four hours as needed for wheezing Ipratropium-Albutero l 0.5 mg-3 mg(2.5 mg base)/3 mL solution for nebulization Active 3 mL INHALATION EVERY 4 HOURS NEEDED as needed for SOB &/OR WHEEZING 180 June 02, 2025 9:28am Start: 12-18-2022 take 1 mL by inhalat ion every four hours as needed Ipratropium-Albuterol Active 3 ML INHALATION EVERY 4 HOURS NEEDED 180 December 18, 2022 1:00am Comment on above: Inhale 3 mL as instr ucted every 4 hours as needed for wheezing/shortness of breath. amoxicillin 500 mg oral capsule (6 sources) Penicillin-class Antibacterial Start: 01-03-20 End: 01-13-20 take 1 capsule by mouth every eight hours amoxicillin (AMOXIL) 500 mg capsule Take 1 capsule by mouth every 8 hours for 10 days. 30 capsule 0 01/03/2024 01/13/2024 Active Start: 03-25-2023 End: 04-04-2023 take 1 capsule by mouth four times daily amoxicillin (AMOXIL) 500 mg capsule Take 1 capsule by mouth four times daily for 10 days. 40 capsule 0 03/25/2023 04/04/2023 Active Comment on above: Take 1 capsule by mo ut four times daily for 10 days. Take 1 capsule by mo uth every 8 hours for 10 days. amoxicillin 875 mg / clavulanate 125 mg oral tablet (16 sources) Penicillin-class Antibacterial Start: End: take 1 tablet by mouth every twelve hours amoxicillin-clavul anate potassium (AUGMENTIN) 875-125 mg per tablet Take 1 tablet by mouth every 12 hours for 7 days. 14 tablet 07/01/2025 07/08/2025 Active Start: 12-10-2024 End: 12-20-2024 take 1 tablet by mouth every twelve hours amoxicillin-clavulanate potassium (AUGMENTIN) 875-125 mg per tablet Take 1 tablet by mouth every 12 hours for 10 days. 20 tablet 12/10/2024 12/20/2024 Active Start: 10-04-2023 End: 10-14-2023 take 1 tablet by mouth every twelve hours amoxicillin-clavulanate potassium (AUGMENTIN) 875-125 mg per tablet Take 1 tablet by mouth every 12 hours for 10 days. 20 tablet 0 10/04/2023 10/14/2023 Active Start: 09-13-2023 End: 09-23-2023 take 1 tablet by mouth every twelve hours amoxicillin-clavulanate potassium (AUGMENTIN) 875-125 mg per tablet Indications: COPD with exacerbation (HCC) Take 1 tablet by mouth every 12 hours for 10 days. 20 tablet 0 09/13/2023 09/23/2023 Active Start: 04-30-2023 End: 05-10-2023 take 1 tablet by mouth every twelve hours amoxicillin-clavulanic acid (AUGMENTIN) 875-125 mg per tablet Indications: COPD with exacerbation (HCC) Take 1 tablet by mouth every 12 hours for 10 days. 20 tablet 0 04/30/2023 05/10/2023 Active Start: 03-19-2023 End: 03-29-2023 take 1 tablet by mouth every twelve hours amoxicillin-clavulanic acid (AUGMENTIN) 875-125 mg per tablet Indications: Upper respiratory tract infection, unspecified type Take 1 tablet by mouth every 12 hours for 10 days. 20 tablet 0 03/19/2023 03/25/2023 Discontinued Start: 12-31-2022 End: 01-10-2023 take 1 tablet by mouth every twelve hours amoxicillin-clavulanic acid (AUGMENTIN) 875-125 mg per tablet Indications: Upper respiratory tract infection, unspecified type Take 1 tablet by mouth every 12 hours for 10 days. 20 tablet 0 12/31/2022 01/10/2023 Active Start: 11-27-2022 End: 12-04-2022 take 1 tablet by mouth every twelve hours amoxicillin-clavulanic acid (AUGMENTIN) 875-125 mg per tablet Take 1 tablet by mouth every 12 hours for 7 days. 14 tablet 0 11/27/2022 12/04/2022 Active Start: 07-30-2022 End: 08-09-2022 take 1 tablet by mouth every twelve hours amoxicillin-clavulanic acid (AUGMENTIN) 875-125 mg per tablet Take 1 tablet by mouth every 12 hours for 10 days. 20 tablet 0 07/30/2022 08/09/2022 Active Comment on above: Take 1 tablet by alberto th every 12 hours for 10 days. Take 1 tablet by alberto th every 12 hours for 7 days. aspirin 81 mg delayed release oral tablet (20 sources) Platelet Aggregation Inhibitor, Nonsteroidal Anti-inflammatory Drug Start: 03-17-20 take 1 tablet by mouth once daily Aspirin (Adult Aspirin Regimen) 81 mg tablet,delayed release (DR/EC) Active 81 mg PO DAILY March 17, 2025 12:00am Comment on above: Take 81 mg by mouth once daily. betamethasone 0.5 mg/ml / clotrimazole 10 mg/ml topical cream (10 sources) Azole Antifungal, Corticosteroid Start: 05-14-20 End: 08-12-20 clotrimazole-betame thasone (LOTRISONE) cream Indications: Labia irritation , Vaginal itching Apply 1 application to affected area two times a day. 45 g 3 05/14/2025 08/12/2025 Active bisacodyl 5 mg delayed release oral tablet (14 sources) Stimulant Laxative Start: 07-23-20 End: 01-19-20 take 1 tablet by mouth once daily as needed bisacodyl EC (DULCOLAX, BISACODYL,) 5 mg EC tablet Indications: Chronic constipation Take 1-2 tablets by mouth once daily as needed for constipation. 60 tablet 5 07/23/2023 01/19/2024 Active Comment on above: Take 1-2 tablets by mouth once daily as needed for constipation. Blood-Glucose Meter (20 sources) Start: 07-14-20 Blood-Glucose Meter Indications: Newly diagnosed diabetes (HCC) 1 Units once daily. 1 Each 07/14/2024 Active cefdinir 300 mg oral capsule (4 sources) Cephalosporin Antibacterial Start: 07-31-20 End: 08-07-20 take 1 capsule by mouth twice daily cefdinir (OMNICEF) 300 mg capsule Take 1 capsule by mouth twice daily for 7 days. 14 capsule 0 07/31/2023 08/07/2023 Active Start: 01-16-2023 End: 01-26-2023 take 1 capsule by mouth twice daily cefdinir (OMNICEF) 300 mg capsule Take 1 capsule by mouth twice daily for 10 days. 20 capsule 0 01/16/2023 01/26/2023 Active Comment on above: Take 1 capsule by mo uth twice daily for 10 days. Take 1 capsule by mo uth twice daily for 7 days. cephalexin 500 mg oral capsule (14 sources) Cephalosporin Antibacterial Start: End: take 1 capsule by mouth twice daily cephALEXin (KEFLEX) 500 mg capsule Indications: Recurrent UTI (urinary tract infection) Take 1 capsule by mouth two times a day for 7 days. 14 capsule 06/10/2025 06/17/2025 Active Start: 02-05-2025 End: 02-10-2025 take 1 capsule by mouth twice daily cephALEXin (KEFLEX) 500 mg capsule Take 1 capsule by mouth two times a day for 5 days. 10 capsule 02/05/2025 02/10/2025 Start: 11-10-2024 End: 11-17-2024 take 1 capsule by mouth three times daily cephALEXin (KEFLEX) 500 mg capsule Take 1 capsule by mouth three times a day for 7 days. 21 capsule 11/10/2024 11/17/2024 Active Start: 06-15-2024 End: 06-22-2024 take 1 capsule by mouth twice daily cephALEXin (KEFLEX) 500 mg capsule Indications: Acute UTI Take 1 capsule by mouth two times a day for 7 days. 14 capsule 0 06/15/2024 06/22/2024 Active Start: 07-30-2023 End: 07-31-2023 take 1 capsule by mouth three times daily cephALEXin (KEFLEX) 500 mg capsule Take 1 capsule by mouth three times daily for 7 days. 21 capsule 0 07/30/2023 07/31/2023 Discontinued Start: 02-28-2022 End: 03-07-2022 take 1 capsule by mouth three times daily cephALEXin (KEFLEX) 500 mg capsule Take 1 capsule by mouth three times daily for 7 days. 21 capsule 0 02/28/2022 03/07/2022 Active Start: 02-20-2022 End: 02-25-2022 take 1 capsule by mouth twice daily cephALEXin (KEFLEX) 500 mg capsule Indications: Acute cystitis without hematuria Take 1 capsule by mouth twice daily for 5 days. 10 capsule 0 02/20/2022 02/25/2022 Active Comment on above: Take 1 capsule by mo uth twice daily for 5 days. Take 1 capsule by mo uth three times daily for 7 days. cetirizine hydrochloride 10 mg oral tablet (20 sources) Histamine-1 Receptor Antagonist Start: 03-08-20 take 1 tablet by mouth once daily cetirizine (ZYRTEC) 10 mg tablet Indications: Environmental allergies Take 1 tablet by mouth once daily. 30 tablet 5 03/08/2025 Active cholecalciferol 0.125 mg oral capsule (20 sources) Vitamin D Start: 04-08-20 take 1 capsule by mouth once daily Cholecalciferol, Vitamin D3, 125 mcg (5,000 unit) cap Take 1 capsule by mouth once daily. 30 capsule 04/08/2024 Active cimetidine 400 mg oral tablet (20 sources) Histamine-2 Receptor Antagonist Start: 04-03-20 End: 10-01-20 take 1 tablet by mouth twice daily cimetidine (TAGAMET) 400 mg tablet Indications: GERD without esophagitis TAKE 1 TABLET BY MOUTH TWICE DAILY 180 tablet 1 10/01/2024 Active Start: 10-15-2023 End: 04-03-2024 take 1 tablet by mouth once daily at bedtime Cimetidine 800 mg tablet Indications: GERD without esophagitis Take 1 tablet by mouth daily at bedtime. 90 tablet 1 01/21/2024 04/03/2024 Discontinued Start: 04-08-2023 take 1 tablet by alberto th once daily at bedtime Cimetidine 800 mg tablet Indications: GERD without esophagitis Take 1 tablet by mouth daily at bedtime. 90 tablet 1 04/08/2023 Active Start: 2021 End: 09-24-2022 take 1 tablet by mouth once daily at bedtime Cimetidine 800 mg tablet Indications: GERD without esophagitis Take 1 tablet by mouth daily at bedtime. 90 tablet 1 09/24/2022 Active Comment on above: Take 1 tablet by alberto th daily at bedtime. cyclobenzaprine hydrochloride 10 mg oral tablet (1 source) Muscle Relaxant Start: take 1 tablet by mouth every twelve hours as needed cyclobenzaprine (FLEXERIL) 10 mg tablet Take 1 tablet by mouth two times a day as needed for pain. 45 tablet 07/28/2025 Active dexamethasone 6 mg oral tablet (1 source) Corticosteroid Start: End: 023 take 1 tablet by mouth once daily dexAMETHasone (DECADRON) 6 mg tablet Take 1 tablet by mouth once daily for 5 doses. 5 tablet 0 10/29/2023 11/03/2023 Active Comment on above: Take 1 tablet by [facility] once daily for 5 doses. [place] 8-Zcg-Say-Fish Oil (4 sources) Start: 025 [place] 3-Hrp-Jxm-Fish Oil (Fish Oil) 300-1,000 mg capsule Active 1 NMA PO TWICE A DAY March 17, 2025 12:00am docusate sodium 100 mg oral capsule (8 sources) Start: 023 take 2 capsules by mouth once daily Docusate Sodium 100 mg capsule Active 200 mg PO DAILY June 27, 2023 12:00am Start: 06-27-2023 take 200 mg by mouth once dwain y Docusate Sodium Active 200 MG PO DAILY June 27, 2023 12:00am doxycycline monohydrate 100 mg oral tablet (7 sources) Tetracycline-class Drug Start: 03-22-2023 End: 03-29-2023 take 1 tablet by mouth twice daily doxycycline monohydrate 100 mg tablet Take 1 tablet by mouth twice daily for 7 days. 14 tablet 0 03/22/2023 03/29/2023 Active Start: 04-27-2022 End: 05-07-2022 take 1 capsule by mouth twice daily doxycycline hyclate (VIBRAMYCIN) 100 mg capsule Indications: sinusitis Take 1 capsule by mouth twice daily for 10 days. 20 capsule 0 04/27/2022 05/07/2022 Active Comment on above: Take 1 capsule by [facility] twice daily for 10 days. Take 1 tablet by [facility] twice daily for 7 days. famotidine 20 mg oral tablet (20 sources) Histamine-2 Receptor Antagonist Start: End: take 1 tablet by mouth twice daily famotidine (PEPCID) 20 mg tablet Indications: Gastroesophageal reflux disease without esophagitis Take 1 tablet by mouth two times a day. 180 tablet 1 05/14/2025 11/10/2025 Active Start: 12-25-2024 End: 12-25-2025 take 1 tablet by mouth at bedtime Famotidine 40 mg tablet Active 40 mg PO AT BEDTIME June 02, 2025 12:00am Xqtfoscfddi-Gwlbupluj-Njkvso er (20 sources) Anticholinergic, Corticosteroid, beta2-Adrenergic Agonist Start: 03-02-2025 Nrksathbtvw-Cdunjqsso-Zllmtt er (Trelegy Ellipta) 100-62.5-25 mcg blister with device Active 1 NMA INHALATION Q24H 60 5 March 02, 2025 12:00am Start: 03-02-2025 Fluticasone-Um eclidin-Vilanter (Trelegy Ellipta) 100-62.5-25 mcg blister with device Active 1 NMA INHALATION Q24H 60 March 02, 2025 12:00am Start: 06-30-2019 End: 12-22-2019 Wwtqjqiuyat-Bngzxloup-Kdmihn er (Trelegy Ellipta) 100-62.5-25 mcg blister with device Discontinued 1 NMA INHALATION DAILY 60 11 June 30, 2019 1:52pm December 22, 2019 8:43am Chronic obstructive pulmonary disease, unspecified Start: 06-30-2019 End: 12-22-2019 Hfjaqnihzvo-Pgfbnceel-Jpkbyn er (Trelegy Ellipta) 100-62.5-25 mcg blister with device Discontinued 1 NMA INHALATION DAILY 60 June 30, 2019 1:52pm December 22, 2019 8:43am Start: 06-30-2019 End: 12-22-2019 Whwlgfljpkh-Ifrnkvdti-Kshbdk er (Trelegy Ellipta) 100-62.5-25 mcg blister with device Discontinued 1 INH INHALATION DAILY 60 June 30, 2019 1:52pm December 22, 2019 8:43am Start: 06-30-2019 End: 12-22-2019 Kvxvvdzbibc-Uzeacczzo-Eidbfc er (Trelegy Ellipta) 100-62.5-25 mcg blister with device Discontinued 1 INH INHALATION DAILY 60 June 30, 2019 12:52pm December 22, 2019 7:43am Start: 10-07-2018 End: 06-30-2019 Uoxmvxgybce-Exkqvxplx-Wdzost er (Trelegy Ellipta) 100-62.5-25 mcg blister with device Discontinued 1 NMA INHALATION DAILY 60 October 07, 2018 1:00am June 30, 2019 1:55pm Chronic obstructive pulmonary disease, unspecified Start: 10-07-2018 End: 06-30-2019 Ojrbiybnmkp-Bgtaczgyn-Lqnwna er (Trelegy Ellipta) 100-62.5-25 mcg blister with device Discontinued 1 NMA INHALATION DAILY 60 October 07, 2018 1:00am June 30, 2019 1:55pm Start: 10-07-2018 End: 06-30-2019 Zlqsepooxfp-Csbufzmxd-Smdlmj er (Trelegy Ellipta) 100-62.5-25 mcg blister with device Discontinued 1 INH INHALATION DAILY 60 October 07, 2018 1:00am June 30, 2019 1:55pm Start: 10-07-2018 End: 06-30-2019 Fbpkuqdhujy-Ptrhyignp-Mmjand er (Trelegy Ellipta) 100-62.5-25 mcg blister with device Discontinued 1 INH INHALATION DAILY 60 October 07, 2018 12:00am June 30, 2019 12:55pm take 1 puff(s) by inhalation once daily TRELEGY ELLIPTA 100-62.5-25 mcg inhalati on powder Inhale 1 puff as instructed once daily. Active furosemide 40 mg oral tablet (20 sources) Loop Diuretic Start: 02-24-2024 End: 01-18-2025 take 1 tablet by mouth once daily furosemide (LASIX) 40 mg tablet Indications: Bilateral leg edema Take 1 tablet by mouth once daily. 90 tablet 3 01/18/2025 Active Start: 06-27-2023 End: 03-13-2024 take 1 tablet by mouth once daily Furosemide 20 mg tablet Discontinued 20 mg PO DAILY June 27, 2023 12:00am March 13, 2024 9:05am Start: 06-08-2022 End: 12-05-2022 take 1 tablet by mouth once daily furosemide (LASIX) 20 mg tablet Indications: Bilateral leg edema Take 1 tablet by mouth once daily. 30 tablet 5 06/08/2022 Active Comment on above: Take 1 tablet by alberto th once daily. gabapentin 400 mg oral capsule (20 sources) Anti-epileptic Agent Start: 0 End: take 1 capsule by mouth three times daily gabapentin (NEURONTIN) 400 mg capsule Indications: Cervical radiculopathy , Radiculopathy due to lumbar intervertebral disc disorder Take 1 capsule by mouth three times a day for 180 days. 270 capsule 1 04/09/2025 10/06/2025 Active Comment on above: Take 1 capsule by [facility] three times daily. 12 hr guaiFENesin 1200 mg extended release oral tablet (10 sources) Start: take 1 tablet by mouth twice daily, then take 1 tablet by mouth every twelve hours Guaifenesin (Mucinex) 1,200 mg tablet extended release 12hr Active 1200 mg PO TWICE A DAY 60 3 April 09, 2025 12:00am Start: 08-07-2023 End: 03-13-2024 take 1 tablet by mouth every twelve hours Guaifenesin 1,200 mg tablet extended release 12hr Discontinued 1200 mg PO Q12H 60 August 07, 2023 12:00am March 13, 2024 9:05am Humidifiers (COOL MIST HUMIDIFIER 1 GALLON) misc (20 sources) Start: 10-27-2018 Humidifiers (C OOL MIST HUMIDIFIER 1 GALLON) [facility] [place] Indications: Pulmonary fibrosis (HCC) , Centrilobular emphysema (HCC) , On home O2 1 Units daily at bedtime. 1 Each 10/27/2018 Active Start: 10-27-2018 Humidifiers (C OOL MIST HUMIDIFIER 1 GALLON) [facility] [place] Indications: Pulmonary fibrosis (HCC) , Centrilobular emphysema (HCC) , On home O2 1 Units daily at bedtime. 1 Each 0 10/27/2018 Suspended Start: 10-27-2018 Humidifiers (C OOL MIST HUMIDIFIER 1 GALLON) [facility] [place] Indications: Pulmonary fibrosis (HCC) , Centrilobular emphysema (HCC) , On home O2 1 Units daily at bedtime. 1 Each 0 10/27/2018 Active Comment on above: 1 Units daily at bed time. Incontinence Pad, Liner, Disp (BLADDER CONTROL PADS EX ABSORB) pads (20 sources) Start: 12-20-2023 Incontinence Pad, Liner, Disp (BLADDER CONTROL PADS EX ABSORB) pads Indications: Mixed stress and urge urinary incontinence 1 Units every 4 hours as needed (incontinence). 180 Each 11 12/20/2023 Active Start: 03-14-2018 Incontinence P ad, Liner, Disp (BLADDER CONTROL PADS EX ABSORB) pads 1 Units every 4 hours as needed (incontinence). 180 Each 03/14/2018 Suspended Start: 03-14-2018 Incontinence P ad, Liner, Disp (BLADDER CONTROL PADS EX ABSORB) pads 1 Units every 4 hours as needed (incontinence). 180 Each 11 03/14/2018 Active Comment on above: 1 Units every 4 hour s as needed (incontinence). levothyroxine sodium 0.125 mg oral tablet (20 sources) l-Thyroxine Start: 03-23-20 End: 09-10-20 take 1 tablet by mouth once daily levothyroxine (SYNTHROID) 125 mcg tablet Indications: Hypothyroidism, acquired Take 1 tablet by mouth once daily. 90 tablet 3 09/15/2024 09/10/2025 Active Start: 01-21-2024 End: 03-17-2025 take 1 tablet by mouth once daily Levothyroxine 112 mcg tablet Discontinued 112 ug PO daily March 13, 2024 12:00am March 17, 2025 9:09am Start: 11-14-2022 End: 03-13-2024 take 1 tablet by mouth once daily Levothyroxine 100 mcg tablet Discontinued 100 ug PO DAILY June 27, 2023 12:00am March 13, 2024 9:05am Start: 2021 End: 05-16-2022 take 1 tablet by mouth once daily levothyroxine (SYNTHROID) 100 mcg tablet Indications: Hypothyroidism, acquired Take 1 tablet by mouth once daily. 90 tablet 1 05/16/2022 Active Start: 06-19-2018 End: 06-30-2023 Levothyroxine (Synthroid) 75 mcg tablet Discontinued 0 PO daily June 19, 2018 12:00am June 30, 2023 10:46am 100 orally daily; Start: 06-19-2018 take 1 tablet by alberto th once daily Levothyroxine (Synthroid) 75 mcg tablet Active 75 MCG PO daily June 18, 2018 11:00pm Comment on above: Take 1 tablet by alberto th once daily. TAKE 1 TABLET BY ALBERTO TH once DAILY TAKE 1 TABLET EVERY DAY lovastatin 40 mg oral tablet (20 sources) HMG-CoA Reductase Inhibitor Start: 06-19-2018 End: 10-20-2025 take 2 tablets by mouth once daily at bedtime lovastatin 40 mg tablet Take 2 tablets by mouth daily at bedtime. 180 tablet 3 10/20/2024 10/20/2025 Active Start: 06-19-2018 take 80 mg by mouth at bedtime Lovastatin Active 80 MG PO AT BEDTIME June 19, 2018 12:00am Start: 06-19-2018 take 40 mg by mouth once daily Lovastatin Active 40 MG PO daily June 18, 2018 11:00pm Comment on above: Take 2 tablets by mo uth daily at bedtime. montelukast 10 mg oral tablet (20 sources) Leukotriene Receptor Antagonist Start: 2 End: take 1 tablet by mouth at bedtime montelukast (SINGULAIR) 10 mg tablet Indications: Centrilobular emphysema (HCC) TAKE 1 TABLET BY MOUTH AT BEDTIME 90 tablet 3 09/15/2024 Active Start: 2021 End: 02-20-2022 take 1 tablet by mouth once daily montelukast (SINGULAIR) 10 mg tablet TAKE 1 TABLET BY MOUTH NIGHTLY 90 tablet 1 2021 02/20/2022 Discontinued Comment on above: TAKE 1 TABLET BY ALBERTO TH NIGHTLY TAKE 1 TABLET BY ALBERTO TH AT BEDTIME nirmatrelvir tablet 300 mg (150 mg x 2) and ritonavir tablet 100 mg in a dose pack (PAXLOVID) (2 sources) Start: 01-01-2025 End: 01-06-2025 nirmatrelvir tablet 300 mg (150 mg x 2) and ritonavir tablet 100 mg in a dose pack (PAXLOVID) Indications: COVID-19 Administer TWO pink nirmatrelvir 150 mg tablets and ONE white ritonavir 100 mg tablet for a total of three tablets twice daily. 30 tablet 01/01/2025 01/06/2025 Active omega 3-vzt-fev-fish oil 300-1,000 mg cpDR (20 sources) take 300-1000 mg by mouth twice daily omega 1-yfm-dcd-fish oil 300-1,000 mg cpDR Take 1 capsule by mouth two times a day. Active take 300-1000 mg by mouth twice daily omega 7-rah-vet-fish oil 300-1,000 mg cpDR Take 1 capsule by mouth two times a day. 0 Active omega 3-dha-epa- fish oil 300-1,000 mg cpDR 1 capsule 0 Suspended omega 3-dha-epa- fish oil 300-1,000 mg cpDR 1 capsule 0 Active Comment on above: 1 capsule Take 1 capsule by mo [facility] two times a day. OXYGEN, HOME THERAPY, (20 sources) Start: 10-28-2023 OXYGEN, HOME THERAPY, 3 L/min by Nasal Cannula route as directed. 10/28/2023 Active Start: 10-28-2023 OXYGEN, HOME T HERAPY, 3 L/min by Nasal Cannula route as directed. 0 10/28/2023 Active OXYGEN, HOME THE RAPY, 2 L/min by Nasal Cannula route as directed. 0 Suspended OXYGEN, HOME THE RAPY, 2 L/min by Nasal Cannula route as directed. 0 Active Comment on above: 2 L/min by Nasal Can nula route as directed. 3 L/min by Nasal Can nula route as directed. perflutren lipid microspheres 1.3 mL in NaCl (PF) 0.9% 10 mL injection (DEFINITY) (20 sources) Start: 06-08-20 End: 09-07-20 perflutren lipid microspheres 1.3 mL in NaCl (PF) 0.9% 10 mL injection (DEFINITY) phenazopyridine hydrochloride 100 mg oral tablet (8 sources) Start: 06-10-20 take 1 tablet by mouth three times daily as needed phenazopyridine (PYRIDIUM) 100 mg tablet Indications: Recurrent UTI (urinary tract infection) Take 1 tablet by mouth three times a day as needed. 6 tablet 06/10/2025 Active pramipexole dihydrochloride 1 mg oral tablet (20 sources) Nonergot Dopamine Agonist Start: 09-19-20 End: 07-21-20 26 take 1 tablet by mouth twice daily pramipexole (MIRAPEX) 1 mg tablet Indications: Restless leg syndrome Take 1 tablet by mouth two times a day. 180 tablet 3 07/21/2025 07/21/2026 Active Comment on above: TAKE 1 TABLET BY ALBERTO TH TWICE DAILY Take 1 tablet by alberto th twice daily. predniSONE 20 mg oral tablet (20 sources) Start: 07-01-20 25 take 2 tablets by mouth once daily predniSONE (DELTASONE) 20 mg tablet Take 2 tablets by mouth once daily. 10 tablet 07/01/2025 Active Start: 12-07-2024 End: 05-05-2025 predniSONE (DELTASONE) 20 mg tablet 3 tablets by mouth for 3 days, 2 tablets by mouth For 3 days, 1 tablet by mouth For 3 days, then stop. 18 tablet 12/07/2024 05/05/2025 Discontinued Start: 12-12-2023 End: 04-08-2024 predniSONE (DELTASONE) 10 mg tablet On last dose of 3mg . Has 9 more of 3mg to go 0 12/12/2023 04/08/2024 Discontinued Start: 12-12-2023 End: 03-13-2024 take 4 tablets by mouth once daily, then take 3 tablets by mouth once daily, then take 2 tablets by mouth once daily, then take 1 tablet by mouth once daily Prednisone 10 mg tablet Discontinued 10 mg PO DAILY 30 December 12, 2023 1:00am March 13, 2024 9:12am Obstructive chronic bronchitis with exacerbation Chronic obstructive pulmonary disease with (acute) exacerbation Take 4 tabs PO daily for 3 days, then 3 tabs daily for 3 days, then 2 tabs daily for 3 days, then 1 tab daily for 3 days Start: 09-13-2023 End: 10-04-2023 predniSONE (DELTASONE) 20 mg tablet 3 tablets by mouth for 3 days, 2 tablets by mouth For 3 days, 1 tablet by mouth For 3 days, then stop. 18 tablet 0 10/04/2023 Active Start: 06-30-2023 End: 08-07-2023 take 2 tablets by mouth once daily Prednisone 20 mg tablet Discontinued 40 mg PO DAILY June 30, 2023 12:00am August 07, 2023 7:44am Start: 06-30-2023 End: 08-07-2023 take 40 mg by mouth once daily Prednisone Discontinued 40 MG PO DAILY June 30, 2023 12:00am August 07, 2023 7:44am Start: 04-30-2023 End: 07-23-2023 predniSONE (DELTASONE) 20 mg tablet Indications: COPD with exacerbation (HCC) 3 tablets by mouth for 3 days, 2 tablets by mouth For 3 days, 1 tablet by mouth For 3 days, then stop. 18 tablet 0 04/30/2023 07/23/2023 Discontinued Start: 07-30-2022 End: 07-23-2023 predniSONE (DELTASONE) 10 mg tablet Indications: COPD with exacerbation (HCC) Take 4 tablets for 3 days, then 2 tablets for 3 days, then 1 tablet for 3 days, then stop 21 tablet 0 12/31/2022 07/23/2023 Discontinued Start: 04-27-2022 predniSONE (DE LTASONE) 20 mg tablet 3 tablets by mouth for 3 days, 2 tablets by mouth For 3 days, 1 tablet by mouth For 3 days, then stop. 18 tablet 0 04/27/2022 Active Comment on above: 3 tablets by mouth f or 3 days, 2 tablets by mouth For 3 days, 1 tablet by mouth For 3 days, then stop. Take 4 tablets for 3 days, then 2 tablets for 3 days, then 1 tablet for 3 days, then stop TAKE 4 TABLETS BY MO UTH DAILY FOR 3 DAYS then TAKE 3 TABLETS DAILY FOR 3 DAYS then TAKE 2 TABLETS DAILY FOR 3 DAYS then TAKE 1 TABLET DAILY FOR 3 DAYS On last dose of 3mg . Has 9 more of 3mg to go roflumilast 0.25 mg oral tablet (13 sources) Phosphodiesterase 4 Inhibitor Start: 04-09-20 take 1 tablet by mouth once daily roflumilast (DALIRESP) 250 mcg tablet TAKE 1 TABLET BY MOUTH ONCE DAILY for FOUR weeks 04/09/2025 Active Start: 04-09-2025 End: 06-02-2025 take 1 tablet by mouth once daily Roflumilast (Daliresp) 250 mcg tablet Discontinued 250 ug PO daily April 09, 2025 12:00am June 02, 2025 9:03am Start: 04-09-2025 take 1 tablet by alberto th once daily Roflumilast (Daliresp) 250 mcg tablet Active 250 ug PO daily April 09, 2025 12:00am Start: 04-09-2025 take 1 tablet by alberto th once daily Roflumilast (Daliresp) 250 mcg tablet Active 250 ug PO daily April 09, 2025 12:00am SITagliptin 25 mg oral tablet (10 sources) Dipeptidyl Peptidase 4 Inhibitor Start: 05-14-2025 End: 11-10-2025 take 1 tablet by mouth once daily SITagliptin phosphate (JANUVIA) 25 mg tablet Indications: Type 2 diabetes mellitus without complication, without long-term current use of insulin (HCC) Take 1 tablet by mouth once daily. 90 tablet 1 05/14/2025 11/10/2025 Active 125 ml sodium chloride 9 mg/ml prefilled syringe (20 sources) Start: 06-08-2021 End: 09-07-2022 sodium chloride 0.9 % (flush) 10 mL (BD POSIFLUSH) Completed/Discontinued Medications Medication Drug Class(es) Dates Sig (Normalized) Sig (Original) acetaminophen 325 mg / HYDROcodone bitartrate 5 mg oral tablet (20 sources) Opioid Agonist Start: 03-02-2025 End: 04-09-2025 Hydrocodone-Acetami nophen 5-325 mg tablet Discontinued 1 {tbl} PO DAILY as needed for pain 0 March 02, 2025 12:00am April 09, 2025 10:07am Start: 08-07-2024 End: 08-12-2024 take 1 tablet by mouth every eight hours as needed for pain HYDROcodone-acetaminophen (NORCO) 5-325 mg per tablet Indications: Abscess of groin, right , Postoperative pain Take 1 tablet by mouth every 8 hours as needed for pain for up to 5 days. 15 tablet 08/07/2024 08/12/2024 Active Start: 05-11-2024 End: 12-07-2024 HYDROcodone-acetaminophen (N ORCO) 5-325 mg per tablet 05/11/2024 12/07/2024 Discontinued Start: 03-28-2023 End: 04-02-2023 take 1 tablet by mouth every eight hours as needed for pain HYDROcodone-acetaminophen (NORCO) 5-325 mg per tablet Indications: Postoperative pain Take 1 tablet by mouth every 8 hours as needed for pain for up to 5 days. 15 tablet 0 03/28/2023 04/02/2023 Active Start: 05-18-2021 End: 05-12-2024 take 1 tablet by mouth once daily, then take 5 tablets by mouth once daily HYDROcodone-Acetaminophen (NORCO) 7.5-32 5 mg per tablet Take 1 tablet by mouth once daily. Taking 5- 3.25mg once a day. 0 05/18/2021 05/12/2024 Discontinued Start: 05-18-2021 take 1 tablet by alberto th three times daily as needed for pain HYDROcodone-Acetaminophen (NORCO) 7.5-32 5 mg per tablet TAKE 1 TABLET BY MOUTH THREE TIMES DAILY NEEDED FOR PAIN for up to 30 days 0 05/18/2021 Active Start: 06-19-2018 End: 03-02-2025 Hydrocodone-Acetaminophen (N orco) 7.5-325 mg tablet Discontinued 1 {tbl} PO EVERY 6 HOURS as needed for pain 0 June 19, 2018 12:00am March 02, 2025 8:06am Comment on above: TAKE 1 TABLET BY ALBERTO TH THREE TIMES DAILY NEEDED FOR PAIN for up to 30 days Take 1 tablet by alberto th every 8 hours as needed for pain for up to 5 days. amLODIPine 2.5 mg oral tablet (5 sources) Dihydropyridine Calcium Channel Guy Start: 12-28-19 End: 02-21-20 22 take 1 tablet by mouth once daily amLODIPine (NORVASC) 2.5 mg tablet Take 1 tablet by mouth once daily. 30 tablet 5 12/28/2021 02/20/2022 Discontinued Comment on above: Take 1 tablet by alberto th once daily. apremilast 30 mg oral tablet (13 sources) End: 06-15-20 24 take 1 tablet by mouth once apremilast (OTEZLA) 30 mg tablet Take 30 mg by mouth one time only. 0 06/15/2024 Discontinued take 1 tablet by mouth twice delia ly apremilast (OTEZLA) 30 mg tablet Take 30 mg by mouth two times a day. 0 Active Budesonide-Formoterol (11 sources) Corticosteroid, beta2-Adrenergic Agonist Start: 09-19-2020 End: 10-31-2020 Budesonide-Formoterol (Symbicort) 160-4.5 mcg/actuation HFA aerosol inhaler Discontinued 2 NMA INHALATION TWICE A DAY 1 3 September 19, 2020 1:00am October 31, 2020 11:32am administer with spacer, rinse mouth after each use Start: 09-19-2020 End: 10-31-2020 Budesonide-Formoterol (Symbi ava) 160-4.5 mcg/actuation HFA aerosol inhaler Discontinued 2 NMA INHALATION TWICE A DAY September 19, 2020 1:00am October 31, 2020 11:32am administer with spacer, rinse mouth after each use Start: 09-19-2020 End: 10-31-2020 take 1 puff(s) by mouth twice daily Budesonide-Formoterol (Symbicort) 160-4. 5 mcg/actuation HFA aerosol inhaler Discontinued 2 PUFF INHALATION TWICE A DAY 1 September 19, 2020 1:00am October 31, 2020 11:32am administer with spacer, rinse mouth after each use Start: 09-19-2020 End: 10-31-2020 take 1 puff(s) by mouth twice daily Budesonide-Formoterol (Symbicort) 160-4. 5 mcg/actuation HFA aerosol inhaler Discontinued 2 PUFF INHALATION TWICE A DAY September 19, 2020 12:00am October 31, 2020 10:32am administer with spacer, rinse mouth after each use Pmqwvukckz-Jhpwugcc-Gztobsab ol (20 sources) Corticosteroid, beta2-Adrenergic Agonist Start: 01-18-2025 End: 03-02-2025 Yotuhxaejm-Egqkrmau-Nscaylyt ol (Breztri Aerosphere) 160-9-4.8 mcg/actuation HFA aerosol inhaler Discontinued 2 NMA INHALATION TWICE A DAY 3 January 18, 2025 10:31am March 02, 2025 8:17am Start: 01-18-2025 End: 03-02-2025 Skehasdsqk-Mrrgnqqj-Lbfauyhf ol (Breztri Aerosphere) 160-9-4.8 mcg/actuation HFA aerosol inhaler Discontinued 2 NMA INHALATION TWICE A DAY January 18, 2025 10:31am March 02, 2025 8:17am Start: 11-02-2024 End: 01-18-2025 Ehdwipruov-Valltfwm-Pvrfzcby ol (Breztri Aerosphere) 160-9-4.8 mcg/actuation HFA aerosol inhaler Discontinued 2 NMA INHALATION TWICE A DAY 3 November 02, 2024 8:54am January 18, 2025 10:31am Start: 11-02-2024 End: 01-18-2025 Vjuaczwmho-Kwiloxmw-Ixiqxuej ol (Breztri Aerosphere) 160-9-4.8 mcg/actuation HFA aerosol inhaler Discontinued 2 NMA INHALATION TWICE A DAY November 02, 2024 8:54am January 18, 2025 10:31am Start: 05-22-2024 End: 11-02-2024 Hziuseumvl-Tmldpygh-Npjdsurr ol (Breztri Aerosphere) 160-9-4.8 mcg/actuation HFA aerosol inhaler Discontinued 2 NMA INHALATION TWICE A DAY 3 3 May 22, 2024 7:58am November 02, 2024 8:54am Start: 05-22-2024 End: 11-02-2024 Njxahhzigc-Vfvmhefv-Qaxtlpht ol (Breztri Aerosphere) 160-9-4.8 mcg/actuation HFA aerosol inhaler Discontinued 2 NMA INHALATION TWICE A DAY 3 May 22, 2024 7:58am November 02, 2024 8:54am Start: 03-17-2024 End: 04-09-2025 take 2 puff(s) by inhalation twice daily BREZTRI AEROSPHERE 160-9-4.8 mcg/actuati on HFA aerosol inhaler Inhale 2 Puffs as instructed two times a day. 03/17/2024 04/09/2025 Discontinued (Other) Start: 03-17-2024 End: 05-22-2024 Utbywiineh-Gaasesuu-Frlczqst ol (Breztri Aerosphere) 160-9-4.8 mcg/actuation HFA aerosol inhaler Discontinued 2 NMA INHALATION TWICE A DAY 10.7 6 March 17, 2024 12:00am May 22, 2024 7:59am Start: 03-17-2024 End: 05-22-2024 Gxnvzlakql-Uuwjvbey-Yuoiyaln ol (Breztri Aerosphere) 160-9-4.8 mcg/actuation HFA aerosol inhaler Discontinued 2 NMA INHALATION TWICE A DAY 10.7 March 17, 2024 12:00am May 22, 2024 7:59am buprenorphine 0.3 mg buccal film (20 sources) Partial Opioid Agonist Start: 03-17-2025 End: 03-17-2025 Buprenorphine Hcl (Buprenorphine Hcl 300 Mcg Buccal Film) 300 mcg film Discontinued 300 ug BUCCAL EVERY 12 HOURS NEEDED as needed for pain March 17, 2025 12:00am March 17, 2025 9:17am Start: 11-23-2024 End: 03-08-2025 BELBUCA 150 mcg buccal film 11/23/2024 03/08/2025 Discontinued Start: 06-01-2024 End: 12-07-2024 BUTRANS 7.5 mcg/hour transde rmal patch 1 patch to skin Transdermal every 7 days, remove old patch for 28 days 06/01/2024 12/07/2024 Discontinued Start: 05-05-2024 End: 06-15-2024 apply 5 ug transdermal route every hour buprenorphine (BUTRANS) 5 mcg/hour 7.5 mcg/hour patch replaced weekly 0 05/05/2024 06/15/2024 Discontinued Start: 05-05-2024 buprenorphine (BUTRANS) 5 mcg/hour apply 1 patch to the skin EVERY 7 DAYS. remove old patch BEFORE applying new. 0 05/05/2024 Active End: 07-06-2025 buprenorphine (BELBUCA) 150 mcg buccal film 1 film Bucally every 12 hrs prn baseline pain - dispense 01/22/25; Duration: 30 days 07/06/2025 Discontinued (Course of therapy completed) 12 hr buPROPion hydrochloride 150 mg extended release oral tablet (20 sources) Aminoketone Start: 03-02-2025 End: 05-14-2025 take 1 tablet by mouth every twelve hours buPROPion SR (WELLBUTRIN SR) 150 mg 12 hr tablet Take 1 tablet by mouth every 12 hours. 03/02/2025 05/14/2025 Discontinued Start: 03-02-2025 take 1 tablet by alberto twice daily Bupropion Hcl (Wellbutrin Sr) 150 mg tablet sustained-release 12 hr Active 150 mg PO TWICE A DAY 60 March 02, 2025 12:00am Start: 07-01-2023 End: 07-23-2023 take 1 tablet by mouth twice daily buPROPion SR (WELLBUTRIN SR) 150 mg 12 hr tablet Indications: Smokes cigarettes Take 1 tablet by mouth twice daily. 60 tablet 2 07/01/2023 07/23/2023 Discontinued (Side Effects) Start: 04-20-2022 End: 06-30-2023 take 1 tablet by mouth twice daily Bupropion Hcl (Wellbutrin Sr) 150 mg tablet sustained-release 12 hr Discontinued 150 mg PO TWICE A DAY May 14, 2022 12:00am June 30, 2023 10:44am Comment on above: Take 1 tablet by alberto twice daily. TAKE 1 TABLET BY ALBERTO TWICE DAILY calcium chloride 0.0014 meq/ml / potassium chloride 0.004 meq/ml / sodium chloride 0.103 meq/ml / sodium lactate 0.028 meq/ml injectable solution (1 source) Start: End: take 30 mL intravenously every hour 30 mL/hr, INTRAVENOUS, CONTINUOUS, Starting on Sat04/28/25 at 1230, Until Sat04/28/25 at 1405, Preprocedure ciclopirox 80 mg/ml topical solution (20 sources) Start: End: Ciclopirox (CICLODAN) 8 % solution Apply to affected area daily at bedtime. 08/30/2024 04/09/2025 Discontinued (Other) clindamycin 300 mg oral capsule (14 sources) Lincosamide Antibacterial Start: End: take 1 capsule by mouth three times daily clindamycin (CLEOCIN HCL) 300 mg capsule Indications: Cellulitis of great toe, right Take 1 capsule by mouth three times a day for 10 days. 30 capsule 11/03/2024 11/13/2024 Start: 07-27-2024 End: 08-27-2024 take 1 capsule by mouth three times daily clindamycin (CLEOCIN HCL) 300 mg capsule Indications: Cellulitis of right groin Take 1 capsule by mouth three times a day for 10 days. 30 capsule 08/17/2024 08/27/2024 Active clobetasol propionate 0.5 mg/ml topical solution (20 sources) Corticosteroid Start: 02-28-2024 End: 08-23-2024 Clobetasol Propionate (TEMOVATE) 0.05 % external solution 02/28/2024 08/23/2024 Discontinued (Other) Start: 02-28-2024 Clobetasol Pro pionate (TEMOVATE) 0.05 % external solution APPLY a few drops TO THE AFFECTED AREA(S) OF the scalp EVERY NIGHT FOR 14 DAYS then take a week off. repeat NEEDED for flares or APPLY 1-2 times a week for maitenance. 02/28/2024 Active Start: 02-20-2022 End: 05-21-2022 clobetasol (TEMOVATE) 0.05 % ointment Indications: Psoriasis Apply to affected area twice daily. 30 g 1 02/20/2022 05/21/2022 Active Comment on above: Apply to affected ar ea twice daily. dextromethorphan hydrobromide 3 mg/ml / promethazine hydrochloride 1.25 mg/ml oral solution (12 sources) Phenothiazine, Uncompetitive L-vhexzn-G-aspartate Receptor Antagonist, Sigma-1 Agonist Start: 09-13-20 End: 12-27-19 take 5 mL by mouth every twenty-four hours as needed Promethazine-DM (PHENERGAN-DM) 6.25-15 mg/5 mL syrup Take 5 mL by mouth at bedtime as needed for cough. 118 mL 0 09/13/2023 12/27/2023 Discontinued Start: 11-27-2022 End: 02-19-2023 take 5 mL by mouth every twenty-four hours as needed Promethazine-DM (PHENERGAN-DM) 6.25-15 mg/5 mL syrup Take 5 mL by mouth at bedtime as needed for cough. 118 mL 0 11/27/2022 02/19/2023 Discontinued Comment on above: Take 5 mL by mouth a t bedtime as needed for cough. ergocalciferol 1.25 mg oral capsule (20 sources) Provitamin D2 Compound Start: 08-23-20 End: 04-08-20 take 1 capsule by mouth every week VITAMIN D2 1,250 mcg (50,000 unit) capsule TAKE 1 CAPSULE BY MOUTH ONCE A WEEK 12 capsule 2 08/23/2020 04/08/2024 Discontinued Comment on above: TAKE 1 CAPSULE BY [facility] ONCE A WEEK estrogens, conjugated (residential) 0.625 mg/ml vaginal cream (20 sources) Estrogen Start: 03-17-20 End: 06-02-20 Conjugated Estrogens (Premarin) 0.625 mg/gram cream Discontinued 0.625 mg VAGINAL EVERY WEEK March 17, 2025 12:00am June 02, 2025 9:04am Start: 03-08-2025 conjugated est rogens (PREMARIN) vaginal cream Indications: Atrophic vaginitis Use 1 g vaginally one time a week. 30 g 5 03/08/2025 Active fluconazole 150 mg oral tablet (7 sources) Azole Antifungal Start: 03-08-2025 End: 04-09-2025 fluconazole (DIFLUCAN) 150 mg tablet Indications: vulvovaginal candidiasis Take 1 tablet by mouth once, may repeat dose in 72 hours for persistent symptoms 2 tablet 03/08/2025 04/09/2025 Discontinued (Other) Start: 11-27-2022 End: 12-04-2022 take 1 tablet by mouth once daily fluconazole (DIFLUCAN) 100 mg tablet Indications: Yeast dermatitis Take 1 tablet by mouth once daily for 7 days. 7 tablet 0 11/27/2022 12/04/2022 Active Comment on above: Take 1 tablet by alberto once daily for 7 days. Fluticasone Propion-Salmeterol (11 sources) Corticosteroid, beta2-Adrenergic Agonist Start: 06-19-2018 End: 10-07-2018 Fluticasone Propion-Salmeterol (Advair Diskus) 500-50 mcg/dose blister with device Discontinued 1 NMA INHALATION TWICE A DAY June 19, 2018 12:00am October 07, 2018 1:04pm Start: 06-19-2018 End: 10-07-2018 Fluticasone Propion-Salmeter ol (Advair Diskus) 500-50 mcg/dose blister with device Discontinued 1 INH INHALATION TWICE A DAY June 19, 2018 12:00am October 07, 2018 1:04pm Start: 06-19-2018 End: 10-07-2018 Fluticasone Propion-Salmeter ol (Advair Diskus) 500-50 mcg/dose blister with device Discontinued 1 INH INHALATION TWICE A DAY June 18, 2018 11:00pm October 07, 2018 12:04pm Fluticasone Furoate-Vilanterol (20 sources) Corticosteroid, beta2-Adrenergic Agonist Start: 11-20-2021 End: 05-14-2022 Fluticasone Furoate-Vilanterol (Breo Ellipta) 200-25 mcg/dose blister with device Discontinued 1 NMA INHALATION daily 60 November 20, 2021 1:00am May 14, 2022 7:57am after inhalation, rinse mouth with water and spit out; do not swallow Start: 11-20-2021 End: 05-14-2022 Fluticasone Furoate-Vilanter ol (Breo Ellipta) 200-25 mcg/dose blister with device Discontinued 1 NMA INHALATION daily 60 November 20, 2021 1:00am May 14, 2022 7:57am after inhalation, rinse mouth with water and spit out; do not swallow Start: 11-20-2021 End: 05-14-2022 Fluticasone Furoate-Vilanter ol (Breo Ellipta) 200-25 mcg/dose blister with device Discontinued 1 INH INHALATION daily November 20, 2021 1:00am May 14, 2022 7:57am after inhalation, rinse mouth with water and spit out; do not swallow Start: 11-20-2021 End: 05-14-2022 Fluticasone Furoate-Vilanter ol (Breo Ellipta) 200-25 mcg/dose blister with device Discontinued 1 INH INHALATION daily November 20, 2021 12:00am May 14, 2022 6:57am after inhalation, rinse mouth with water and spit out; do not swallow Start: 10-31-2020 End: 05-02-2021 Fluticasone Furoate-Vilanter ol (Breo Ellipta) 200-25 mcg/dose blister with device Discontinued 1 NMA INHALATION daily 60 October 31, 2020 1:00am May 02, 2021 10:26am after inhalation, rinse mouth with water and spit out; do not swallow Start: 10-31-2020 End: 05-02-2021 Fluticasone Furoate-Vilanter ol (Breo Ellipta) 200-25 mcg/dose blister with device Discontinued 1 NMA INHALATION daily October 31, 2020 1:00am May 02, 2021 10:26am after inhalation, rinse mouth with water and spit out; do not swallow Start: 10-31-2020 End: 05-02-2021 Fluticasone Furoate-Vilanter ol (Breo Ellipta) 200-25 mcg/dose blister with device Discontinued 1 INH INHALATION daily October 31, 2020 1:00am May 02, 2021 10:26am after inhalation, rinse mouth with water and spit out; do not swallow Start: 10-31-2020 End: 05-02-2021 Fluticasone Furoate-Vilanter ol (Breo Ellipta) 200-25 mcg/dose blister with device Discontinued 1 INH INHALATION daily October 31, 2020 12:00am May 02, 2021 9:26am after inhalation, rinse mouth with water and spit out; do not swallow Trklwfnmzuu-Jlbqsguis-Juueld er (20 sources) Start: 08-26-2023 End: 03-17-2024 Trncdfvhaom-Qniswreyw-Blonbh er (Trelegy Ellipta) 200-62.5-25 mcg blister with device Discontinued 1 NMA INHALATION DAILY 3 August 26, 2023 7:56am March 17, 2024 9:12am Start: 08-26-2023 End: 03-17-2024 Pyujdfgeluf-Hbrzjjntn-Mpqzvy er (Trelegy Ellipta) 200-62.5-25 mcg blister with device Discontinued 1 NMA INHALATION DAILY August 26, 2023 7:56am March 17, 2024 9:12am Start: 08-26-2023 Fluticasone-Um eclidin-Vilanter (Trelegy Ellipta) 200-62.5-25 mcg blister with device Active 1 INH INHALATION DAILY August 26, 2023 7:56am Start: 08-26-2023 Fluticasone-Um eclidin-Vilanter (Trelegy Ellipta) 200-62.5-25 mcg blister with device Active 1 INH INHALATION DAILY August 26, 2023 6:56am Start: 01-15-2023 End: 08-26-2023 Sgfkktyjxmb-Wdpmqqmld-Nsqtzm er (Trelegy Ellipta) 200-62.5-25 mcg blister with device Discontinued 1 NMA INHALATION DAILY 60 January 15, 2023 11:17am August 26, 2023 7:57am Start: 01-15-2023 End: 08-26-2023 Klzhsjahizo-Udtydmeag-Prpdch er (Trelegy Ellipta) 200-62.5-25 mcg blister with device Discontinued 1 NMA INHALATION DAILY January 15, 2023 11:17am August 26, 2023 7:57am Start: 01-15-2023 End: 08-26-2023 Tjafzmjxbwq-Ovmhjudes-Xvpwuk er (Trelegy Ellipta) 200-62.5-25 mcg blister with device Discontinued 1 INH INHALATION DAILY 60 January 15, 2023 11:17am August 26, 2023 7:57am Start: 01-15-2023 End: 08-26-2023 Ipkbibhmajz-Gdhcwxeoa-Hetkbl er (Trelegy Ellipta) 200-62.5-25 mcg blister with device Discontinued 1 INH INHALATION DAILY 60 January 15, 2023 10:17am August 26, 2023 6:57am Start: 01-15-2023 Fluticasone-Um eclidin-Vilanter (Trelegy Ellipta) 200-62.5-25 mcg blister with device Active 1 INH INHALATION DAILY 60 January 15, 2023 11:17am Start: 11-21-2022 End: 01-15-2023 Iwerjhbrbwx-Eogajxqeq-Pdfuax er (Trelegy Ellipta) 200-62.5-25 mcg blister with device Discontinued 1 NMA INHALATION DAILY 60 November 21, 2022 1:00am January 15, 2023 11:17am Start: 11-21-2022 End: 01-15-2023 Ujowxqszsfg-Kwckbjbpk-Kvmqla er (Trelegy Ellipta) 200-62.5-25 mcg blister with device Discontinued 1 NMA INHALATION DAILY November 21, 2022 1:00am January 15, 2023 11:17am Start: 11-21-2022 End: 01-15-2023 Ulipcwaahmw-Lairdfujt-Wufjfd er (Trelegy Ellipta) 200-62.5-25 mcg blister with device Discontinued 1 INH INHALATION DAILY November 21, 2022 12:00am January 15, 2023 10:17am Start: 11-21-2022 End: 01-15-2023 Arzprjfzipd-Hpxayciqd-Bzrohh er (Trelegy Ellipta) 200-62.5-25 mcg blister with device Discontinued 1 INH INHALATION DAILY November 21, 2022 1:00am January 15, 2023 11:17am 120 actuat formoterol fumarate 0.0048 mg/actuat / glycopyrrolate 0.009 mg/actuat metered dose inhaler (11 sources) beta2-Adrenergic Agonist Start: 12-22-2019 End: 09-19-2020 Glycopyrrolate-Formoterol (Bevespi Aerosphere) 9-4.8 mcg HFA aerosol inhaler Discontinued 2 NMA INHALATION every day in the morning and in the evening 1 December 22, 2019 1:00am September 19, 2020 10:00am Start: 12-22-2019 End: 09-19-2020 Glycopyrrolate-Formoterol (B evespi Aerosphere) 9-4.8 mcg HFA aerosol inhaler Discontinued 2 PUFF INHALATION every day in the morning and in the evening December 22, 2019 1:00am September 19, 2020 10:00am hydrOXYzine hydrochloride 25 mg oral tablet (20 sources) Antihistamine Start: 02-19-2023 End: 09-13-2023 take 1 tablet by mouth every eight hours as needed hydrOXYzine HCl (ATARAX) 25 mg tablet Take 1 tablet by mouth three times daily as needed for itching/rash (for itching). 45 tablet 0 02/19/2023 09/13/2023 Discontinued Comment on above: Take 1 tablet by alberto three times daily as needed for itching/rash (for itching). ketoconazole 20 mg/ml medicated shampoo (20 sources) Azole Antifungal Start: 02-28-2024 End: 12-07-2024 ketoconazole (NIZORAL) 2 % shampoo 02/28/2024 12/07/2024 Discontinued Start: 02-28-2024 ketoconazole ( NIZORAL) 2 % shampoo Wash the scalp every other wash. Lather on and let sit for 3-5 minutes before rinsing out. 02/28/2024 Active Start: 09-07-2022 End: 10-19-2022 ketoconazole (NIZORAL) 2 % c ream Apply 1 application to affected area once daily. 60 g 2 09/07/2022 10/19/2022 Active Comment on above: Apply 1 application to affected area once daily. lansoprazole 30 mg delayed release oral capsule (20 sources) Proton Pump Inhibitor Start: End: take 1 capsule by mouth twice daily lansoprazole (PREVACID) 30 mg capsule Take 1 capsule by mouth two times a day. 180 capsule 1 05/05/2025 07/06/2025 Discontinued Start: 04-09-2024 End: 06-02-2025 take 1 capsule by mouth once daily Lansoprazole 30 mg capsule,delayed release(DR/EC) Discontinued 30 mg PO DAILY March 17, 2025 12:00am June 02, 2025 9:04am levoFLOXacin 750 mg oral tablet (19 sources) Quinolone Antimicrobial Start: 03-19-2025 End: 05-05-2025 take 1 tablet by mouth once daily Levofloxacin 750 mg tablet Discontinued 750 mg PO DAILY 5 5 March 19, 2025 12:00am April 09, 2025 10:07am Start: 06-30-2023 End: 08-07-2023 take 1 tablet by mouth once daily Levofloxacin 750 mg tablet Discontinued 750 mg PO DAILY 5 0 June 30, 2023 12:00am August 07, 2023 7:44am lubiprostone 0.024 mg oral capsule (20 sources) Chloride Channel Activator Start: 10-27-2018 take 1 capsule by mouth twice daily at mealtime AMITIZA 24 mcg capsule TAKE 1 CAPSULE BY MOUTH TWICE A DAY WITH FOOD 0 10/27/2018 Active Comment on above: TAKE 1 CAPSULE BY [facility] TWICE A DAY WITH FOOD metFORMIN hydrochloride 500 mg oral tablet (20 sources) Biguanide Start: 07-14-2024 End: 06-02-2025 take 1 tablet by mouth twice daily Metformin 500 mg tablet Discontinued 500 mg PO TWICE A DAY November 02, 2024 1:00am June 02, 2025 9:03am 24 hr metoprolol succinate 25 mg extended release oral tablet (18 sources) beta-Adrenergic Guy Start: 12-15-2024 End: 12-15-2025 take 0.5 tablet by mouth once daily metoprolol succinate ER (TOPROL XL) 25 mg 24 hr tablet Take 0.5 tablets by mouth once daily. 15 tablet 11 12/15/2024 04/09/2025 Discontinued (Other) mometasone furoate 0.05 mg/actuat metered dose nasal spray (20 sources) Corticosteroid Start: 06-11-2022 End: 12-27-2023 mometasone (NASONEX) 50 mcg/actuation nasal spray Start: 06-11-2022 take 2 spray(s) nasa l route once daily mometasone (NASONEX) 50 mcg/actuation nasal spray Use 2 (TWO) sprays IN EACH NOSTRIL ONCE DAILY DIRECTED 0 06/11/2022 Active Comment on above: Use 2 (TWO) sprays I N EACH NOSTRIL ONCE DAILY DIRECTED mupirocin 0.02 mg/mg topical ointment (15 sources) RNA Synthetase Inhibitor Antibacterial Start: 03-19-2023 End: 09-13-2023 mupirocin (BACTROBAN) 2 % ointment Apply 1 application to affected area three times daily. 22 g 0 03/19/2023 09/13/2023 Discontinued Comment on above: Apply 1 application to affected area three times daily. nicotine 4 mg inhalation solution (14 sources) Cholinergic Nicotinic Agonist Start: 08-07-2023 End: 03-13-2024 Nicotine 10 mg cartridge Discontinued 1 NMA INHALATION 4 to 6 times per day as needed for nicotine cravings 168 1 August 07, 2023 12:00am March 13, 2024 9:05am Start: 07-23-2023 End: 10-21-2023 nicotine, polacrilex, 4 mg l zmn Indications: Smoker Place 4 mg between cheek and gum every 2 hours as needed. 135 Each 2 07/23/2023 10/21/2023 Active Comment on above: Place 4 mg between c heek and gum every 2 hours as needed. nitrofurantoin, macrocrystals 25 mg / nitrofurantoin, monohydrate 75 mg oral capsule (2 sources) Nitrofuran Antibacterial Start: 02-04-20 End: 02-11-20 take 1 capsule by mouth twice daily nitrofurantoin monohydrate and macrocrystal (MACROBID) 100 mg capsule Take 1 capsule by mouth two times a day for 7 days. 14 capsule 02/03/2025 02/05/2025 Discontinued nystatin 960992 unt/ml topical cream (20 sources) Polyene Antifungal Start: 09-21-20 nystatin (MYCOSTATIN) cream Apply to affected area. APPLY TO THE AFFECTED AREA(S) TWICE DAILY. 0 09/21/2022 Suspended Start: 04-20-2022 End: 05-20-2022 nystatin (MYCOSTATIN) cream Indications: Yeast dermatitis Apply to affected area twice daily. 30 g 1 04/20/2022 05/20/2022 Active Comment on above: Apply to affected ar ea twice daily. Apply to affected ar ea. APPLY TO THE AFFECTED AREA(S) TWICE DAILY. omega 4-iuv-moq-fish oil (FISH OIL) 300-1,000 mg cpDR (20 sources) omega 3-dha-epa- fish oil (FISH OIL) 300-1,000 mg cpDR 1 capsule 0 Active Comment on above: 1 capsule omeprazole 40 mg delayed release oral capsule (20 sources) Proton Pump Inhibitor Start: 3 End: take 1 capsule by mouth once daily Omeprazole 40 mg capsule,delayed release(DR/EC) Discontinued 40 mg PO DAILY June 27, 2023 12:00am March 17, 2025 9:19am Start: 01-16-2022 End: 01-14-2023 take 1 capsule by mouth once daily omeprazole (PRILOSEC) 40 mg capsule Indications: GERD without esophagitis Take 1 capsule by mouth once daily. 90 capsule 1 01/14/2023 Active Comment on above: TAKE 1 CAPSULE BY MO [facility] ONCE DAILY before eating Take 1 capsule by mo [facility] once daily. take 1 capsule by mo ut once daily polyethylene glycol 3350 33195 mg powder for oral solution (20 sources) Osmotic Laxative Start: 06-19-2018 End: 03-17-2025 Polyethylene Glycol 3350 (Miralax) 17 gram/dose powder Discontinued 17 g PO DAILY as needed for constipation 0 June 19, 2018 12:00am March 17, 2025 9:19am Start: 06-19-2018 End: 04-08-2024 polyethylene glycol 3350 (CT RALAX, GLYCOLAX) 17 gram/dose powder mix 17 grams and drink ONCE DAILY DIRECTED. *dissolve in 4-8 ounces of liquid DIRECTED * 850 g 5 05/30/2022 04/08/2024 Discontinued Comment on above: Take 17 g by mouth o nce daily. Dissolve dose in 4 - 8 ounces of liquid and take as directed. mix 17 grams and dri nk ONCE DAILY DIRECTED. *dissolve in 4-8 ounces of liquid DIRECTED * polyethylene glycol 3350 367905 mg / potassium chloride 2970 mg / sodium bicarbonate 6740 mg / sodium chloride 5860 mg / sodium sulfate 54439 mg powder for oral solution (1 source) Osmotic Laxative Start: 5 End: 5 peg 3350-Electrolytes (GOLYTELY) 236-22.74-6.74 -5.86 gram suspension Indications: History of colonic polyps Take 4,000 mL by mouth one time only for 1 dose. Refer to printed prep instructions from your provider. 4000 mL 03/15/2025 03/15/2025 potassium chloride 10 meq extended release oral tablet (20 sources) Start: 3 End: 3 take 1 tablet by mouth once daily Potassium Chloride 10 mEq tablet extended release Discontinued 10 meq PO DAILY June 27, 2023 12:00am October 22, 2023 9:41am Start: 04-21-2023 take 1 tablet by alberto th once daily potassium chloride (K-TAB) 10 mEq tablet Take 10 mEq by mouth once daily. 0 04/21/2023 Active Start: 06-08-2022 End: 12-05-2022 take 1 tablet by mouth once daily potassium chloride (K-TAB) 10 mEq tablet Indications: Bilateral leg edema Take 1 tablet by mouth once daily. 30 tablet 5 06/08/2022 12/05/2022 Active Comment on above: Take 1 tablet by alberto th once daily. Take 10 mEq by mouth once daily. raNITIdine 150 mg oral tablet (11 sources) Histamine-2 Receptor Antagonist Start: 06-19-20 End: 06-30-20 take 1 tablet by mouth once daily Ranitidine Hcl (Zantac) 150 mg tablet Discontinued 150 mg PO daily June 19, 2018 12:00am June 30, 2023 10:45am Risankizumab-Rzaa (8 sources) Start: 06-27-20 End: 10-22-20 inject 150 mg by subcutaneous injection every three months Risankizumab-Rzaa (Skyrizi) 150 mg/mL pen injector Discontinued 150 mg SC .COMPLEX June 27, 2023 12:00am October 22, 2023 9:41am 150 mg subcutaneously every 3 months; Start: 06-27-2023 End: 10-22-2023 inject 150 mg by subcutaneous injection every three months Risankizumab-Rzaa (Skyrizi) 150 mg/mL pen injector Discontinued 150 MG SC .COMPLEX June 27, 2023 12:00am October 22, 2023 9:41am 150 mg subcutaneously every 3 months; Start: 06-27-2023 End: 10-22-2023 inject 150 mg by subcutaneous injection every three months Risankizumab-Rzaa (Skyrizi) 150 mg/mL pen injector Discontinued 150 MG SC .COMPLEX June 26, 2023 11:00pm October 22, 2023 8:41am 150 mg subcutaneously every 3 months; Start: 06-27-2023 inject 150 mg by sub cutaneous injection every three months Risankizumab-Rzaa (Skyrizi) 150 mg/mL pen injector Active 150 MG SC .COMPLEX June 26, 2023 11:00pm 150 mg subcutaneously every 3 months; Start: 06-27-2023 inject 150 mg by sub cutaneous injection every three months Risankizumab-Rzaa (Skyrizi) 150 mg/mL pen injector Active 150 MG SC .COMPLEX June 27, 2023 12:00am 150 mg subcutaneously every 3 months; risankizumab-rzaa (SKYRIZI INTRAVENOUS) (14 sources) End: 09-13-2023 risankizumab-rzaa (SKYRIZI INTRAVENOUS) Inject intravenously. 0 09/13/2023 Discontinued risankizumab-rza a (SKYRIZI INTRAVENOUS) Inject intravenously. 0 Active Comment on above: Inject intravenously . SKYRIZI 150 mg/mL injection (20 sources) End: 05-05-2025 SKYRIZI 150 mg/mL injection Subcutaneous for 28 Days 05/05/2025 Discontinued SKYRIZI 150 mg/m L injection Subcutaneous for 28 Days Active tamsulosin hydrochloride 0.4 mg oral capsule (7 sources) alpha-Adrenergic Guy Start: 12-27-2023 End: 01-26-2024 take 1 capsule by mouth once daily at bedtime tamsulosin (FLOMAX) 0.4 mg Take 1 capsule by mouth daily at bedtime. 30 capsule 0 12/27/2023 01/21/2024 Discontinued Comment on above: Take 1 capsule by mo [facility] daily at bedtime. terbinafine 250 mg oral tablet (8 sources) Allylamine Antifungal Start: 07-29-2024 End: 01-25-2025 take 1 tablet by mouth once daily terbinafine HCl (LAMISIL) 250 mg tablet Indications: Onychomycosis Take 1 tablet by mouth once daily. 90 tablet 1 07/29/2024 08/23/2024 Discontinued (Other) tiZANidine 4 mg oral capsule (11 sources) Central alpha-2 Adrenergic Agonist Start: 06-19-2018 End: 06-30-2023 take 1 capsule by mouth three times daily as needed Tizanidine (Zanaflex) 4 mg capsule Discontinued 4 mg PO THREE TIMES A DAY as needed for muscle spasticity June 19, 2018 12:00am June 30, 2023 10:46am TRELEGY ELLIPTA 200-62.5-25 mcg inhalation powder (20 sources) Start: 11-21-2022 End: 04-08-2024 take 1 puff(s) by mouth once daily TRELEGY ELLIPTA 200-62.5-25 mcg inhalation powder INHALE 1 (ONE) puff BY MOUTH DAILY 0 11/21/2022 04/08/2024 Discontinued Start: 11-21-2022 take 1 puff(s) by mo uth once daily TRELEGY ELLIPTA 200-62.5-25 mcg inhalation powder INHALE 1 (ONE) puff BY MOUTH DAILY 0 11/21/2022 Suspended Start: 11-21-2022 take 1 puff(s) by mo uth once daily TRELEGY ELLIPTA 200-62.5-25 mcg inhalation powder INHALE 1 (ONE) puff BY MOUTH DAILY 0 11/21/2022 Active Comment on above: INHALE 1 (ONE) puff BY MOUTH DAILY triamcinolone acetonide 1 mg/ml topical cream (20 sources) Corticosteroid Start: 03-17-2025 End: 03-17-2025 Triamcinolone Acetonide 0.1 % cream Discontinued NMA TOPICAL TWICE A DAY March 17, 2025 12:00am March 17, 2025 9:20am Start: 03-08-2025 triamcinolone acetonide (KENALOG) 0.1 % cream Indications: Atrophic vaginitis Apply to affected area two times a day. 30 g 5 03/08/2025 Active Start: 03-08-2025 take 2 spray(s) by i nhalation once daily triamcinolone acetonide (NASACORT ALLERGY) 55 mcg nasal inhaler Indications: Environmental allergies Use 2 sprays in the nose once daily. 16.9 mL 5 03/08/2025 Active Start: 02-28-2024 End: 12-07-2024 triamcinolone acetonide (COLE ALOG) 0.1 % cream 02/28/2024 12/07/2024 Discontinued Start: 06-05-2021 End: 02-20-2022 triamcinolone acetonide (COLE ALOG) 0.1 % cream Apply to affected area twice daily. APPLY TO AFFECTED AREA 0 06/05/2021 02/20/2022 Discontinued Comment on above: Apply to affected ar ea twice daily. APPLY TO AFFECTED AREA Umeclidinium (20 sources) Anticholinergic Start: 10-31-20 End: 05-02-20 take 62.5 ug by inhalation once daily Umeclidinium (Incruse Ellipta) 62.5 mcg/actuation blister with device Discontinued 1 NMA INHALATION daily 14 02October 31, 2020 1:00am May 02, 2021 10:26am Start: 10-31-2020 End: 05-02-2021 take 62.5 ug by inhalation once daily Umeclidinium (Incruse Ellipta) 62.5 mcg/actuation blister with device Discontinued 1 NMA INHALATION daily October 31, 2020 1:00am May 02, 2021 10:26am Start: 10-31-2020 End: 05-02-2021 take 62.5 ug by inhalation once daily Umeclidinium (Incruse Ellipta) 62.5 mcg/actuation blister with device Discontinued 1 INH INHALATION daily October 31, 2020 1:00am May 02, 2021 10:26am Start: 10-31-2020 End: 05-02-2021 take 62.5 ug by inhalation once daily Umeclidinium (Incruse Ellipta) 62.5 mcg/actuation blister with device Discontinued 1 INH INHALATION daily October 31, 2020 12:00am May 02, 2021 9:26am Start: 06-19-2018 End: 10-07-2018 take 62.5 ug by inhalation every twenty-four hours Umeclidinium (Incruse Ellipta) 62.5 mcg/actuation blister with device Discontinued 1 NMA INHALATION Q24H June 19, 2018 12:00am October 07, 2018 1:05pm Start: 06-19-2018 End: 10-07-2018 take 62.5 ug by inhalation every twenty-four hours Umeclidinium (Incruse Ellipta) 62.5 mcg/actuation blister with device Discontinued 1 INH INHALATION Q24H June 19, 2018 12:00am October 07, 2018 1:05pm Start: 06-19-2018 End: 10-07-2018 take 62.5 ug by inhalation every twenty-four hours Umeclidinium (Incruse Ellipta) 62.5 mcg/actuation blister with device Discontinued 1 INH INHALATION Q24H June 18, 2018 11:00pm October 07, 2018 12:05pm varenicline 1 mg oral tablet (20 sources) Partial Cholinergic Nicotinic Agonist Start: 01-05-2022 End: 03-06-2022 take 1 tablet by mouth twice daily varenicline (CHANTIX) 1 mg tablet Take 1 tablet by mouth twice daily. 60 tablet 1 01/05/2022 02/20/2022 Discontinued Start: 12-29-2021 End: 02-20-2022 take 1 tablet by mouth once daily, then take 1 tablet by mouth twice daily, then take 2 tablets by mouth twice daily varenicline (CHANTIX) 0.5 mg tablet Take 1 tablet by mouth once daily for 3 days, THEN 1 tablet twice daily for 4 days, THEN 2 tablets twice daily. 131 tablet 2 12/29/2021 02/20/2022 Discontinued Start: 06-19-2018 End: 10-06-2019 Varenicline Tartrate (Chanti x Starting Month Box) 0.5 mg (11)- 1 mg (42) tablets,dose pack Discontinued {tbl} PO 0 June 19, 2018 12:00am October 06, 2019 7:35am Start: 06-19-2018 End: 10-06-2019 take 1 tablet by mouth once Varenicline (Chantix Start ing Month Box) 0.5 mg (11)- 1 mg (42) tablets,dose pack Discontinued TABLET PO June 19, 2018 12:00am October 06, 2019 7:35am Comment on above: Take 1 tablet by alberto th twice daily. Take 1 tablet by alberto th once daily for 3 days, THEN 1 tablet twice daily for 4 days, THEN 2 tablets twice daily. Problems Active Problems Problem Classification Problem Date Documented Da te Episodic/Chronic Abdominal hernia (1 source) Hiatal hernia; Translations: [Diaphragmatic hernia without obstruction or gangrene] 05-05-2025 Episodic Acute and chronic tonsillitis (1 source) Tonsillitis; Translations: [Acute tonsillitis, unspecified] 01-03-2024 Episodic Acute bronchitis (11 sources) Acute bronchitis; Translations: [Acute bronchitis, unspecified] 06-19-2018 Episodic Anxiety disorders (1 source) Anxiety; Translations: [Anxiety disorder, unspecified] Chronic Aortic; peripheral; and visceral artery aneurysms (20 sources) Ectasia of thoracic aorta; Translations: [Thoracic aortic ectasia] Onset: 8 04-19-2021 Chronic Chronic obstructive pulmonary disease and bronchiectasis (20 sources) Chronic obstructive lung disease; Translations: [Chronic obstructive pulmonary disease, unspecified] Onset: 6 Chronic Comment on above: FEV1 60% FEV1 57% Coronary atherosclerosis and other heart disease (18 sources) Calcification of coronary artery; Translations: [Atherosclerotic heart disease of [place] coronary artery without angina pectoris] Onset: 5 04-13-2025 Chronic Diabetes mellitus without complication (20 sources) Newly diagnosed diabetes; Translations: [Type 2 diabetes mellitus without complications] Onset: 4 06-15-2024 Chronic Diabetes mellitus without complication (1 source) Glycosuria; Translations: [Glycosuria] 06-15-2024 Episodic Diseases of white blood cells (11 sources) Leukocytosis; Translations: [Elevated white blood cell count, unspecified] 06-28-2023 Chronic Disorders of lipid metabolism (20 sources) Mixed hyperlipidemia; Translations: [Mixed hyperlipidemia] Onset: 6 12-31-2017 Chronic Esophageal disorders (20 sources) Gastroesophageal reflux disease without esophagitis; Translations: [Gastro-esophageal reflux disease without esophagitis] Onset: 8 12-31-2017 Chronic Esophageal disorders (1 source) Esophageal disorders; Translations: [Gastroesophageal reflux disease with esophagitis without hemorrhage] Onset: 5 Essential hypertension (20 sources) Essential hypertension; Translations: [Essential (primary) hypertension] Onset: 6 08-09-2020 Chronic Gastrointestinal hemorrhage (2 sources) Melena; Translations: [Hemorrhage of anus and rectum] Onset: 5 Episodic Genitourinary symptoms and ill-defined conditions (20 sources) Mixed urinary incontinence; Translations: [Mixed incontinence] Onset: 8 01-08-2022 Chronic Heart valve disorders (20 sources) Aortic valve regurgitation; Translations: [Nonrheumatic aortic (valve) insufficiency] Onset: 0 10-31-2020 Chronic Hemorrhoids (1 source) Other hemorrhoids; Translations: [Internal hemorrhoids] Onset: 5 Episodic Immunizations and screening for infectious disease (1 source) Encounter for immunization; Translations: [Need for vaccination] Onset: 5 Episodic Inflammatory diseases of female pelvic organs (4 sources) Abscess of labia; Translations: [Abscess of vulva] Episodic Malaise and fatigue (1 source) Asthenia; Translations: [Weakness] 07-01-2023 Episodic Menopausal disorders (2 sources) Atrophic vaginitis; Translations: [Postmenopausal atrophic vaginitis] Onset: 5 03-08-2025 Chronic Miscellaneous mental health disorders (11 sources) Confusional state; Translations: [Other dissociative and conversion disorders] 06-19-2018 Chronic Mycoses (5 sources) Candidiasis of skin; Translations: [Candidiasis of skin and nail] Episodic Nutritional deficiencies (1 source) Vitamin D deficiency; Translations: [Vitamin D deficiency, unspecified] Chronic Other aftercare (11 sources) Long-term current use of drug therapy; Translations: [Other skilled nursing (current) drug therapy] 06-19-2018 Episodic Other and unspecified benign neoplasm (6 sources) History of polyp of colon; Translations: [History of colonic polyps] 03-17-2025 Episodic Other bone disease and musculoskeletal deformities (2 sources) Osteopenia; Translations: [Other specified disorders of bone density and structure, other site] 05-12-2024 Episodic Other circulatory disease (1 source) Disorder of thoracic aorta 02-05-2025 Chronic Other female genital disorders (1 source) Vulval irritation; Translations: [Other specified noninflammatory disorders of vulva and perineum] 05-14-2025 Episodic Other female genital disorders (1 source) Pruritus of vagina; Translations: [Other specified noninflammatory disorders of vagina] 05-14-2025 Episodic Other gastrointestinal disorders (1 source) Chronic constipation; Translations: [Other constipation] 07-23-2023 Episodic Other gastrointestinal disorders (1 source) Abdominal bloating; Translations: [Abdominal distension (gaseous)] 05-05-2025 Episodic Other gastrointestinal disorders (1 source) Diarrhea, unspecified; Translations: [Diarrhea, unspecified type] Onset: 5 Episodic Other hematologic conditions (3 sources) Secondary polycythemia; Translations: [Polycythemia, secondary] 06-30-2023 Episodic Other hereditary and degenerative nervous system conditions (5 sources) Restless legs; Translations: [Restless legs syndrome] 07-23-2023 Chronic Other inflammatory condition of skin (4 sources) Psoriasis; Translations: [Psoriasis, unspecified] Chronic Other inflammatory condition of skin (1 source) Psoriasis vulgaris; Translations: [Psoriasis vulgaris] Onset: 5 Chronic Other injuries and conditions due to external causes (16 sources) Mucoid impaction of bronchi; Translations: [Unspecified foreign body in bronchus causing asphyxiation, initial encounter] Onset: 5 03-27-2025 Episodic Other lower respiratory disease (20 sources) Fibrosis of lung; Translations: [Pulmonary fibrosis, unspecified] Onset: 8 12-31-2017 Chronic Other lower respiratory disease (20 sources) Hypoxia; Translations: [Hypoxemia] Onset: 0 10-31-2020 Episodic Other lower respiratory disease (11 sources) Cough; Translations: [Cough] 06-19-2018 Episodic Other lower respiratory disease (11 sources) Lung mass; Translations: [Other nonspecific abnormal finding of lung field] 10-06-2019 Episodic Comment on above: Resolved. Monitor wi th yearly low dose Other lower respiratory disease (4 sources) Cough; Translations: [Acute cough] 12-07-2024 Episodic Other lower respiratory disease (1 source) Lower respiratory tract infection; Translations: [Unspecified acute lower respiratory infection] 06-30-2025 Episodic Other lower respiratory disease (1 source) Unspecified acute lower respiratory infection; Translations: [Lower respiratory infection] Onset: 5 Episodic Other nervous system disorders (20 sources) Chronic pain; Translations: [Other chronic pain] Onset: 0 10-31-2020 Chronic Other nervous system disorders (20 sources) Impaired executive functioning; Translations: [Frontal lobe and executive function deficit] Onset: 0 10-31-2020 Chronic Other non-traumatic joint disorders (5 sources) Hip pain; Translations: [Pain in right hip] Onset: 5 07-06-2025 Episodic Other non-traumatic joint disorders (1 source) Pain in right hip; Translations: [Right hip pain] Onset: 5 Episodic Other nutritional; endocrine; and metabolic disorders (20 sources) Obese class I; Translations: [Obesity, unspecified] Onset: 8 04-04-2018 Chronic Other screening for suspected conditions (not mental disorders or infectious disease) (16 sources) CT of chest abnormal; Translations: [Abnormal findings on diagnostic imaging of other specified body structures] Onset: 5 06-19-2018 Chronic Other screening for suspected conditions (not mental disorders or infectious disease) (16 sources) Patient encounter status; Translations: [Encounter for screening mammogram for malignant neoplasm of breast] Onset: 5 Episodic Other skin disorders (1 source) Disorder of nail; Translations: [Nail disorder, unspecified] 07-14-2024 Episodic Other skin disorders (1 source) Ingrowing nail; Translations: [Ingrown nail of great toe of left foot] Onset: 5 Episodic Residual codes; unclassified (20 sources) Obstructive sleep apnea syndrome; Translations: [Obstructive sleep apnea (adult) (pediatric)] Onset: 3 11-21-2022 Chronic Residual codes; unclassified (1 source) Obstructive sleep apnea (adult) (pediatric); Translations: [DANNY (obstructive sleep apnea)] Onset: 4 Chronic Residual codes; unclassified (1 source) Tobacco user; Translations: [Tobacco use] Episodic Residual codes; unclassified (2 sources) Postmenopausal state; Translations: [Asymptomatic menopausal state] 05-12-2024 Episodic Residual codes; unclassified (2 sources) Past history of procedure; Translations: [Other specified postprocedural states] 08-11-2024 Episodic Respiratory failure; insufficiency; arrest (adult) (20 sources) Chronic hypoxemic respiratory failure; Translations: [Chronic respiratory failure with hypoxia] Onset: 0 10-31-2020 Chronic Spondylosis; intervertebral disc disorders; other back problems (20 sources) Cervical spondylosis without myelopathy; Translations: [Spondylosis without myelopathy or radiculopathy, cervical region] Onset: 0 12-29-2019 Chronic Substance-related disorders (20 sources) Smoker; Translations: [Nicotine dependence, unspecified, uncomplicated] Onset: 8 04-04-2018 Chronic Comment on above: Annual due September 2025 Thyroid disorders (20 sources) Non-toxic multinodular goiter; Translations: [Nontoxic multinodular goiter] Onset: 8 12-31-2017 Chronic Unclassified (2 sources) Colonoscopy Food Counter Attendant Onset: 5 04-14-2025 Unclassified (3 sources) History of colonic polyps; Translations: [History of colonic polyps] Onset: 5 Unclassified (1 source) Acute cough; Translations: [Acute cough] Onset: 5 Urinary tract infections (20 sources) Acute cystitis; Translations: [Acute cystitis without hematuria] Onset: 8 Resolved: 9 Episodic Past or Other Problems Problem Classification Problem Date Documented Da te Episodic/Chronic Abdominal pain (15 sources) Suprapubic pain; Translations: [Pelvic and perineal pain] Onset: 05-14-2025 06-19-2018 Episodic Allergic reactions (2 sources) Environmental allergy; Translations: [Other allergy status, other than to drugs and biological substances] Onset: 03-08-2025 03-08-2025 Episodic Cancer of uterus (20 sources) Malignant neoplasm of uterus; Translations: [Malignant neoplasm of uterus, part unspecified] Onset: 10-27-2018 Resolved: 03-25-2023 10-27-2018 Chronic Cancer of uterus (20 sources) History of malignant neoplasm of uterine body; Translations: [Personal history of malignant neoplasm of other parts of uterus] Onset: 11-04-2018 11-04-2018 Episodic Complications of surgical procedures or medical care (20 sources) Complication of surgical procedure; Translations: [Unspecified complication of procedure, initial encounter] Onset: 12-31-2017 12-31-2017 Episodic Genitourinary symptoms and ill-defined conditions (18 sources) Dysuria; Translations: [Dysuria] Onset: 02-02-2025 Episodic Headache; including migraine (20 sources) Chronic headache disorder; Translations: [Chronic headache disorder] Onset: 10-31-2020 10-31-2020 Episodic Nausea and vomiting (2 sources) Nausea; Translations: [Nausea] Onset: 05-14-2025 05-14-2025 Episodic Nonspecific chest pain (20 sources) Chest pain; Translations: [Chest pain, unspecified] Onset: 10-24-2023 Episodic Other aftercare (20 sources) Long-term current use of inhaled steroid; Translations: [assisted (current) use of inhaled steroids] Onset: 12-31-2017 12-31-2017 Episodic Other connective tissue disease (20 sources) H/O: arthrodesis; Translations: [Arthrodesis status] Onset: 12-31-2017 12-31-2017 Episodic Other connective tissue disease (20 sources) Muscle pain; Translations: [Myalgia, unspecified site] Onset: 12-29-2019 12-29-2019 Episodic Other female genital disorders (1 source) Other specified noninflammatory disorders of vulva and perineum; Translations: [Labia irritation] Onset: 05-14-2025 Episodic Other female genital disorders (1 source) Other specified noninflammatory disorders of vagina; Translations: [Vaginal itching] Onset: 05-14-2025 Episodic Other gastrointestinal disorders (20 sources) Drug-induced constipation; Translations: [Drug induced constipation] Onset: 12-29-2019 12-29-2019 Episodic Other hematologic conditions (20 sources) Erythrocytosis; Translations: [Secondary polycythemia] Onset: 07-08-2023 06-28-2023 Episodic Other injuries and conditions due to external causes (1 source) Unspecified foreign body in bronchus causing asphyxiation, initial encounter; Translations: [Unspecified foreign body in bronchus causing asphyxiation, initial encounter] Onset: 03-29-2025 Episodic Other lower respiratory disease (20 sources) Solitary nodule of lung; Translations: [Solitary pulmonary nodule] Onset: 12-31-2017 12-31-2017 Episodic Other lower respiratory disease (20 sources) Dyspnea; Translations: [Dyspnea, unspecified] Onset: 10-31-2020 10-31-2020 Episodic Other lower respiratory disease (2 sources) Shortness of breath; Translations: [Shortness of breath] Onset: 03-24-2025 10-22-2023 Episodic Other lower respiratory disease (1 source) Dyspnea, unspecified; Translations: [Dyspnea, unspecified type] Onset: 10-31-2020 Episodic Other lower respiratory disease (1 source) Hypoxemia; Translations: [Hypoxemia] Onset: 03-29-2025 Episodic Other nervous system disorders (20 sources) Abnormal gait; Translations: [Unsteadiness on feet] Onset: 07-05-2023 07-05-2023 Episodic Other nervous system disorders (1 source) Other acute postprocedural pain; Translations: [Postoperative pain] Onset: 08-07-2024 Episodic Other upper respiratory disease (20 sources) Bronchospasm; Translations: [Acute bronchospasm] Onset: 10-31-2020 10-31-2020 Episodic Other upper respiratory infections (8 sources) Acute maxillary sinusitis; Translations: [Acute maxillary sinusitis, unspecified] Onset: 12-07-2024 Episodic Pleurisy; pneumothorax; pulmonary collapse (20 sources) Pneumothorax; Translations: [Pneumothorax, unspecified] Onset: 10-31-2020 10-31-2020 Episodic Pneumonia (except that caused by tuberculosis or sexually transmitted disease) (8 sources) Community acquired pneumonia; Translations: [Pneumonia, unspecified organism] Onset: 03-29-2025 04-13-2025 Episodic Residual codes; unclassified (20 sources) FH: Cardiovascular disease; Translations: [Family history of ischemic heart disease and other diseases of the circulatory system] Onset: 12-31-2017 12-31-2017 Episodic Residual codes; unclassified (20 sources) Family history of diabetes mellitus; Translations: [Family history of diabetes mellitus] Onset: 12-31-2017 12-31-2017 Episodic Residual codes; unclassified (20 sources) Bilateral lower limb edema; Translations: [Localized edema] Onset: 06-08-2022 Episodic Respiratory failure; insufficiency; arrest (adult) (20 sources) Acute respiratory failure; Translations: [Acute respiratory failure with hypoxia] Onset: 12-31-2017 12-31-2017 Episodic Skin and subcutaneous tissue infections (6 sources) Cellulitis of groin; Translations: [Cellulitis of groin] Onset: 08-07-2024 07-29-2024 Episodic Spondylosis; intervertebral disc disorders; other back problems (20 sources) Radiculopathy due to lumbar intervertebral disc disorder; Translations: [Intervertebral disc disorders with radiculopathy, lumbar region] Onset: 12-29-2019 12-29-2019 Episodic Unclassified (2 sources) Patient encounter status 03-28-2025 Viral infection (20 sources) Disease caused by 2019-nCoV; Translations: [COVID-19] Onset: 10-25-2023 10-25-2023 Episodic Results Test Name Value Interpretation Reference Range Facility CBC panel Auto (Bld)on 09-08 Erythrocyte distribution width (RBC) [Ratio] 16.0 % High 11.5-15.0 [facility] Comment on above: Order Comment: Speci men Type: BLOOD SPECIMENOrdering Facility: [facility] Address: [address] [place] [address] Performed By: #### 5 8410-2 ####[facility] LABCLIA [id number] [place] [address] [facility] Hematocrit (Bld) [Volume fraction] 47.5 % High 36.0-46.0 [facility] Comment on above: Order Comment: Speci men Type: BLOOD SPECIMENOrdering Facility: [facility] Address: [address] [place] [address] Performed By: #### 5 8410-2 ####[facility] LABCLIA [id number] [place] [address] [place] [facility] Hemoglobin (Bld) [Mass/Vol] 14.6 g/dL Normal 11.5-15.5 [facility] Comment on above: Order Comment: Speci men Type: BLOOD SPECIMENOrdering Facility: [facility] Address: [address] [place] [address] Performed By: #### 5 8410-2 ####[facility] LABCLIA [id number] [place] [id number] [place] [facility] MCH (RBC) [Entitic mass] 29.0 pg Normal 26.0-34.0 [facility] Comment on above: Order Comment: Speci men Type: BLOOD SPECIMENOrdering Facility: [facility] Address: [address] [place] [address] Performed By: #### 5 8410-2 ####[facility] [place] LABCLIA [id number] [facility] [place] [address] [place] MCHC (RBC) [Mass/Vol] 30.7 g/dL Normal 30.5-36.0 [facility] Comment on above: Order Comment: Speci men Type: BLOOD SPECIMENOrdering Facility: [facility] Address: [address] [place] [address] Performed By: #### 5 8410-2 ####[facility] LABCLIA [id number] [place] [place] [address] [facility] MCV (RBC) [Entitic vol] 94.4 fL Normal 80.0-100.0 [facility] Comment on above: Order Comment: Speci men Type: BLOOD SPECIMENOrdering Facility: [facility] Address: [address] [place] [address] Performed By: #### 5 8410-2 ####[facility] LABCLIA [id number] [place] [address] [facility] Platelet mean volume (Bld) [Entitic vol] 11.1 fL Normal 9.0-12.7 [facility] Comment on above: Order Comment: Speci men Type: BLOOD SPECIMENOrdering Facility: [facility] Address: [address] [place] [address] Performed By: #### 5 8410-2 ####[facility] LABCLIA [id number] [place] [address] [facility] Platelets (Bld) [#/Vol] 264 10*3/uL Normal 150-400 [facility] Comment on above: Order Comment: Speci men Type: BLOOD SPECIMENOrdering Facility: [facility] Address: [address] [place] [address] Performed By: #### 5 8410-2 ####[facility] LABCLIA [id number] [place] [address] [place] RBC (Bld) [#/Vol] 5.03 10*6/uL Normal 3.90-5.20 [facility] Comment on above: Order Comment: Speci men Type: BLOOD SPECIMENOrdering Facility: [facility] Address: [address] [place] [address] Performed By: #### 5 8410-2 ####[facility] [place] LABCLIA [id number] [place] [address] [facility] WBC (Bld) [#/Vol] 10.50 10*3/uL Normal 3.70-11.00 [facility] Comment on above: Order Comment: Speci men Type: BLOOD SPECIMENOrdering Facility: [facility] Address: [address] [place] [address] Performed By: #### 5 8410-2 ####[facility] LABCLIA [id number] [place] [address] [facility] Comprehensive metabolic 2000 panelon 09-08-2025 Albumin [Mass/Vol] 4.5 g/dL Normal 3.9-4.9 [facility] Comment on above: Order Comment: Speci men Type: BLOOD SPECIMENOrdering Facility: [facility] Address: [address] [place] [address] Performed By: #### 2 4323-8 ####[facility] LABCLIA [id number] [place] [address] [facility] ALP [Catalytic activity/Vol] 81 U/L Normal 34-123 [facility] Comment on above: Order Comment: Speci men Type: BLOOD SPECIMENOrdering Facility: [facility] Address: [address] [place] [address] Performed By: #### 2 4323-8 ####[facility] LABCLIA [id number] [place] [address] [facility] ALT With P-5'-P [Catalytic activity/Vol] 24 U/L Normal 7-38 [facility] Comment on above: Order Comment: Speci men Type: BLOOD SPECIMENOrdering Facility: [facility] Address: [address] [place] [address] Performed By: #### 2 4323-8 ####[facility] [place] LABCLIA [id number] [place] [address] [place] Anion gap [Moles/Vol] 14 mmol/L Normal 8-15 [facility] Comment on above: Order Comment: Speci men Type: BLOOD SPECIMENOrdering Facility: [facility] Address: [address] [place] [address] Performed By: #### 2 4323-8 ####[facility] [place] LABCLIA [id number] [place] [address] [place] AST With P-5'-P [Catalytic activity/Vol] 22 U/L Normal 13-35 [facility] Comment on above: Order Comment: Speci men Type: BLOOD SPECIMENOrdering Facility: [facility] Address: [address] [place] [address] Performed By: #### 2 4323-8 ####[facility] [place] LABCLIA [id number] [place] [address] [place] Bilirubin [Mass/Vol] 0.4 mg/dL Normal 0.2-1.3 [facility] Comment on above: Order Comment: Speci men Type: BLOOD SPECIMENOrdering Facility: [facility] Address: [address] [place] [address] Performed By: #### 2 4323-8 ####[facility] [place] LABCLIA [id number] [place] [address] [place] Calcium [Mass/Vol] 9.4 mg/dL Normal 8.5-10.2 [facility] Comment on above: Order Comment: Speci men Type: BLOOD SPECIMENOrdering Facility: [facility] Address: [address] [address] [place], [place] [id number] Performed By: #### 2 4323-8 ####[facility] [place] LABCLIA [id number] [place] [address] [place] Chloride [Moles/Vol] 102 mmol/L Normal 98-107 [facility] Comment on above: Order Comment: Speci men Type: BLOOD SPECIMENOrdering Facility: [facility] Address: [address] [place] [address] Performed By: #### 2 4323-8 ####[facility] [place] LABCLIA [id number] [place] [place] [address] [place] CO2 [Moles/Vol] 25 mmol/L Normal 22-30 [facility] Comment on above: Order Comment: Speci men Type: BLOOD SPECIMENOrdering Facility: [facility] Address: [address] [place] [address] Performed By: #### 2 4323-8 ####[facility] LABCLIA [id number] [place] [address] [place] Creatinine [Mass/Vol] 0.71 mg/dL Normal 0.58-0.96 [facility] Comment on above: Order Comment: Speci men Type: BLOOD SPECIMENOrdering Facility: [facility] Address: [address] [place] [address] Performed By: #### 2 4323-8 ####[facility] LABCLIA [id number] [place] [address] [place] eGFRcr SerPlBld CKD-EPI 2020 96 mL/min/1.73m??? Normal >=60 [facility] Comment on above: Order Comment: Speci men Type: BLOOD SPECIMENOrdering Facility: [facility] Address: [address] [place] [address] Result Comment: Kati mated Glomerular Filtration Rate (eGFR) is calculated using the 2020 CKD-EPI creatinine equation. This equation utilizes serum creatinine, sex, and age as parameters. The creatinine assay has traceable calibration to isotope dilution-mass spectrometry. Refer to KDIGO guidelines for clinical interpretation. In patients with unstable renal function, e.g. those with acute kidney injury, the eGFR may not accurately reflect actual GFR. Performed By: #### 2 4323-8 ####[facility] LABCLIA [id number] [place] [address] [place] Glucose [Mass/Vol] 88 mg/dL Normal 74-99 [facility] Comment on above: Order Comment: Speci men Type: BLOOD SPECIMENOrdering Facility: [facility] Address: [address] [place] [address] Result Comment: The [place] Diabetes Association (ADA) provides guidance for cutoff values for fasting glucose and random glucose. The ADA defines fasting as no caloric intake for at least 8 hours. Fasting plasma glucose results between 100 to 125 mg/dL indicate increased risk for diabetes (prediabetes). Fasting plasma glucose results greater than or equal to 126 mg/dL meet the criteria for diagnosis of diabetes. In the absence of unequivocal hyperglycemia, results should be confirmed by repeat testing. In a patient with classic symptoms of hyperglycemia or hyperglycemic crisis, random plasma glucose results greater than or equal to 200 mg/dL meet the criteria for diagnosis of diabetes. Reference: Standards of Medical Care in Diabetes 2016, [place] [employer] Association. Diabetes Care. 2016.39(Suppl 1). Performed By: #### 2 4323-8 ####[facility] LABCLIA [id number] [place] [address] [place] Potassium [Moles/Vol] 4.0 mmol/L Normal 3.7-5.1 [facility] Comment on above: Order Comment: Speci men Type: BLOOD SPECIMENOrdering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 Noted Allergy Reaction NICOTINE 05/08/2018 4 - Hives ADHESIVE TAPE-SILICONES 11/03/2024 2 - Rash Comments: rash CARAFATE (SUCRALFATE) 01/15/2020 5 - Intolerance Comments: Nausea/stomach upset CIPROFLOXACIN 06/28/2016 5 - Intolerance Comments: nausea CLARITHROMYCIN 01/17/2017 8 - GI Upset DOXYCYCLINE HCL 03/25/2023 8 - GI Upset FENOFIBRATE 12/23/2015 5 - Intolerance Comments: Nausea FESOTERODINE 01/12/2019 16 - Unknown NABUMETONE 01/18/2017 5 - Intolerance 9 - Itching Comments: Mouth sores OXYBUTYNIN 12/23/2015 5 - Intolerance Comments: Comment: Excessive dry mouth SULFA (SULFONAMIDE ANTIBIOTICS) 09/04/2014 16 - Unknown SYMBICORT (BUDESONIDE-FORMOTEROL ) 10/19/2020 12 - Shortness of Breath Comments: Couldn't breath TERBINAFINE 07/31/2024 8 - GI Upset Date Reviewed: 03/15/2025 Reviewed by: Sin Graves, RN - Fully Assessed Prescriptions as of 03/29/2025 - levoFLOXacin (LEVAQUIN) 750 mg tablet Take 750 mg by mouth once daily. - buPROPion SR (WELLBUTRIN SR) 150 mg 12 hr tablet Take 1 tablet by mouth every 12 hours. - cetirizine (ZYRTEC) 10 mg tablet Take 1 tablet by mouth once daily. - triamcinolone acetonide (NASACORT ALLERGY) 55 mcg nasal inhaler Use 2 sprays in the nose once daily. - fluconazole (DIFLUCAN) 150 mg tablet Take 1 tablet by mouth once, may repeat dose in 72 hours for persistent symptoms - conjugated estrogens (PREMARIN) vaginal cream Use 1 g vaginally one time a week. - triamcinolone acetonide (KENALOG) 0.1 % cream Apply to affected area two times a day. - pramipexole (MIRAPEX) 1 mg tablet TAKE 1 TABLET BY MOUTH TWICE DAILY - furosemide (LASIX) 40 mg tablet Take 1 tablet by mouth once daily. - metFORMIN (GLUCOPHAGE) 500 mg tablet TAKE 1 TABLET BY MOUTH TWICE DAILY WITH MEALS - famotidine (PEPCID) 40 mg tablet Take 1 tablet by mouth daily at bedtime. - metoprolol succinate ER (TOPROL XL) 25 mg 24 hr tablet Take 0.5 tablets by mouth once daily. - predniSONE (DELTASONE) 20 mg tablet 3 tablets by mouth for 3 days, 2 tablets by mouth For 3 days, 1 tablet by mouth For 3 days, then stop. - HYDROcodone-acetaminop hen (NORCO) 5-325 mg per tablet Take 1 tablet by mouth once daily as needed for pain. - lovastatin 40 mg tablet Take 2 tablets by mouth daily at bedtime. - lansoprazole (PREVACID) 30 mg capsule Take 1 capsule by mouth once daily. - levothyroxine (SYNTHROID) 125 mcg tablet Take 1 tablet by mouth once daily. - montelukast (SINGULAIR) 10 mg tablet TAKE 1 TABLET BY MOUTH AT BEDTIME - Ciclopirox (CICLODAN) 8 % solution Apply to affected area daily at bedtime. - Blood-Glucose Meter 1 Units once daily. - Lancets 1 Each once daily. Preferred insurance brand. - blood sugar diagnostic (BLOOD GLUCOSE TEST) test strip 1 Strip once daily. Use preferred insurance brand - SKYRIZI 150 mg/mL injection Subcutaneous for 28 Days - Cholecalciferol, Vitamin D3, 125 mcg (5,000 unit) cap Take 1 capsule by mouth once daily. - BREZTRI AEROSPHERE 160-9-4.8 mcg/actuation HFA aerosol inhaler Inhale 2 Puffs as instructed two times a day. - Incontinence Pad, Liner, Disp (BLADDER CONTROL PADS EX ABSORB) pads 1 Units every 4 hours as needed (incontinence). - ipratropium-albuterol (DUONEB) 0.5 mg-3 mg(2.5 mg base)/3 mL nebu Inhale 3 mL as instructed every 4 hours as needed for wheezing/shortness of breath. - OXYGEN, HOME THERAPY, 3 L/min by Nasal Cannula route as directed. - aspirin, enteric coated (ASPIRIN, ENTERIC COATED) 81 mg EC tablet Take 81 mg by mouth once daily. - gabapentin (NEURONTIN) 400 mg capsule Take 1 capsule by mouth three times daily. - omega 8-ayf-skx-fish oil 300-1,000 mg cpDR Take 1 capsule by mouth two times a day. - Humidifiers (COOL MIST HUMIDIFIER 1 GALLON) misc 1 Units daily at bedtime. - albuterol HFA (PROVENTIL HFA, VENTOLIN HFA) 90 mcg/actuation inhaler 2 puff Every 6 hours as needed Inhalation PRN Problem List As Of Date 03/26/2025 Noted Resolved Centrilobular emphysema (HCC) [J43.2] 07/19/2016 Primary hypertension [I10] 11/13/2016 Mixed hyperlipidemia [E78.2] 11/13/2016 Arthrodesis status [Z98.1] 12/31/2017 Family history of ischemic heart disease and ot*12/31/2017 Family history of diabetes mellitus [Z83.3] 02 (more content not included)... Normal [facility] Culture, Viruson 03-26-2025 CUVI UNK NO VIRUS ISOLATED. Virus Spec Cult TESTING PERFORMED AT [facility]. ORIGINAL REPORT ON FILE IN LAB CONTAINS ADDITIONAL TEST SITE INFORMATION. Normal [facility] Comment on above: Performed By: #### L 350.1000, M100.2400, M300.2000, L200.0200, M100.2000, M300.3000, M600.3500 #### [facility] [address] [place], [address] Body Fluid Cell Count+Diffon 03-24-2025 PATH COMM/BF Reviewed Normal [facility] Comment on above: Order Comment: The r eference interval(s) and other method performance specifications are unavailable for this body fluid. Comparison of the result with concentration in the blood, serum, or plasma is recommended. BAL LLL Result Comment: 48 N EUTROPHILS 10 LYMPHOCYTES 21 MACROPHAGES 1 EOSINOPHIL 20 RESPIRATORY EPITHELIUM ACUTE INFLAMMATION. NO MALIGNANT CELLS IDENTIFIED. Riddhi Barnett MD 03/24/2025 AMENDED REPORT 03/24/25 1353 PATH COMM/BF previously reported as: May follow Performed By: #### L 350.1000, M100.2400, M300.2000, L200.0200, M100.2000, M300.3000, M600.3500 #### [facility] [address] [place], [address] Respiratory Cultureon 2024 RESPC UNK UNK Klebsiella aerogenes Amount Growth Very Rare Klebsiella aerogenes: REACTION Cefepime Islt KRISTIN <=0.12 S cefTRIAXone Islt KRISTIN <=0.25 S Ciprofloxacin Islt KRISTIN <=0.06 S Gentamicin Islt KRISTIN <=1 S levoFLOXacin Islt KRISTIN <=0.12 S Meropenem Islt KRISTIN <=0.25 S Pip+Tazo Islt KRISTIN <=4 S TMP SMX Islt KRISTIN <=20 S Normal [facility] Comment on above: Performed By: #### L 350.1000, M100.2400, M300.2000, L200.0200, M100.2000, M300.3000, M600.3500 #### [facility] [address] [place], [address] Bedside Glucoseon 03-19-2025 FINGERSTICK GLU 123 mg/dL High 74-106 [facility] Comment on above: Result Comment: Dr Shivani salomon Followed MANAGEMENT OF PATIENT CARE PER NURSING PROTOCOL Performed By: #### L 350.1000, M100.2400, M300.2000, L200.0200, M100.2000, M300.3000, M600.3500 #### [facility] [address] [place], [place], [id number] [facility] HIMANSHUN Telephone (ELENA) SARAY SIMON ([id number]) 1965 F Date Time Provider Department 03/19/25 LIUDMILA OLIVERA During your visit today, we recorded the following information about you: Fariba Chino MA 03/19/2025 2:51 PM Signed Received fax from [facility] requesting form to be filled out . Placed in red folder. Fariba Chino MA Allergies As of Date: 03/19/2025 Noted Allergy Reaction NICOTINE 05/08/2018 4 - Hives ADHESIVE TAPE-SILICONES 11/03/2024 2 - Rash Comments: rash CARAFATE (SUCRALFATE) 01/15/2020 5 - Intolerance Comments: Nausea/stomach upset CIPROFLOXACIN 06/28/2016 5 - Intolerance Comments: nausea CLARITHROMYCIN 01/17/2017 8 - GI Upset DOXYCYCLINE HCL 03/25/2023 8 - GI Upset FENOFIBRATE 12/23/2015 5 - Intolerance Comments: Nausea FESOTERODINE 01/12/2019 16 - Unknown NABUMETONE 01/18/2017 5 - Intolerance 9 - Itching Comments: Mouth sores OXYBUTYNIN 12/23/2015 5 - Intolerance Comments: Comment: Excessive dry mouth SULFA (SULFONAMIDE ANTIBIOTICS) 09/04/2014 16 - Unknown SYMBICORT (BUDESONIDE-FORMOTEROL ) 10/19/2020 12 - Shortness of Breath Comments: Couldn't breath TERBINAFINE 07/31/2024 8 - GI Upset Date Reviewed: 03/15/2025 Reviewed by: Sin Graves, RN - Fully Assessed Reason for Visit: Electronic Communication [890] Cmt[facility] Prescriptions as of 03/22/2025 - buPROPion SR (WELLBUTRIN SR) 150 mg 12 hr tablet Take 1 tablet by mouth every 12 hours. - cetirizine (ZYRTEC) 10 mg tablet Take 1 tablet by mouth once daily. - triamcinolone acetonide (NASACORT ALLERGY) 55 mcg nasal inhaler Use 2 sprays in the nose once daily. - fluconazole (DIFLUCAN) 150 mg tablet Take 1 tablet by mouth once, may repeat dose in 72 hours for persistent symptoms - conjugated estrogens (PREMARIN) vaginal cream Use 1 g vaginally one time a week. - triamcinolone acetonide (KENALOG) 0.1 % cream Apply to affected area two times a day. - pramipexole (MIRAPEX) 1 mg tablet TAKE 1 TABLET BY MOUTH TWICE DAILY - furosemide (LASIX) 40 mg tablet Take 1 tablet by mouth once daily. - metFORMIN (GLUCOPHAGE) 500 mg tablet TAKE 1 TABLET BY MOUTH TWICE DAILY WITH MEALS - famotidine (PEPCID) 40 mg tablet Take 1 tablet by mouth daily at bedtime. - metoprolol succinate ER (TOPROL XL) 25 mg 24 hr tablet Take 0.5 tablets by mouth once daily. - predniSONE (DELTASONE) 20 mg tablet 3 tablets by mouth for 3 days, 2 tablets by mouth For 3 days, 1 tablet by mouth For 3 days, then stop. - HYDROcodone-acetaminop hen (NORCO) 5-325 mg per tablet Take 1 tablet by mouth once daily as needed for pain. - lovastatin 40 mg tablet Take 2 tablets by mouth daily at bedtime. - lansoprazole (PREVACID) 30 mg capsule Take 1 capsule by mouth once daily. - levothyroxine (SYNTHROID) 125 mcg tablet Take 1 tablet by mouth once daily. - montelukast (SINGULAIR) 10 mg tablet TAKE 1 TABLET BY MOUTH AT BEDTIME - Ciclopirox (CICLODAN) 8 % solution Apply to affected area daily at bedtime. - Blood-Glucose Meter 1 Units once daily. - Lancets 1 Each once daily. Preferred insurance brand. - blood sugar diagnostic (BLOOD GLUCOSE TEST) test strip 1 Strip once daily. Use preferred insurance brand - SKYRIZI 150 mg/mL injection Subcutaneous for 28 Days - Cholecalciferol, Vitamin D3, 125 mcg (5,000 unit) cap Take 1 capsule by mouth once daily. - BREZTRI AEROSPHERE 160-9-4.8 mcg/actuation HFA aerosol inhaler Inhale 2 Puffs as instructed two times a day. - Incontinence Pad, Liner, Disp (BLADDER CONTROL PADS EX ABSORB) pads 1 Units every 4 hours as needed (incontinence). - ipratropium-albuterol (DUONEB) 0.5 mg-3 mg(2.5 mg base)/3 mL nebu Inhale 3 mL as instructed every 4 hours as needed for wheezing/shortness of breath. - OXYGEN, HOME THERAPY, 3 L/min by Nasal Cannula route as directed. - aspirin, enteric coated (ASPIRIN, ENTERIC COATED) 81 mg EC tablet Take 81 mg by mouth once daily. - gabapentin (NEURONTIN) 400 mg capsule Take 1 capsule by mouth three times daily. - omega 9-hxp-vvt-fish oil 300-1,000 mg cpDR Take 1 capsule by mouth two times a day. - Humidifiers (COOL MIST HUMIDIFIER 1 GALLON) misc 1 Units daily at bedtime. - albuterol HFA (PROVENTIL HFA, VENTOLIN HFA) 90 mcg/actuation inhaler 2 puff Every 6 hours as needed Inhalation PRN Problem List As Of Date 03/19/2025 Noted Resolved Centrilobular emphysema (HCC) [J43.2] 07/19/2016 Primary hypertension [I10] 11/13/2016 Mixed hyperlipidemia [E78.2] 11/13/2016 Arthrodesis status [Z98.1] 12/31/2017 Family history of ischemic heart disease and ot*12/31/2017 Family history of diabetes mellitus [Z83.3] 12/31/2017 GERD without esophagitis [K21.9] 12/31/2017 assisted current use of inhaled steroid [Z79.5*12/31/2017 Nontoxic multinodular goiter [E04.2] 12/31/2017 Complication of surgical procedure [T81.9XXA] 12/31/2017 Po (more content not included)... Normal [facility] Discharge Instructionon 05- Discharge Instruction [facility] [address] [place] [address] Instructions for Home/Discharge Instructions 03/19/25 1030 MR#: [id number] Acct: [id number] Name: SARAY SIMON Rep #: [id number] : 1965 59 From: Kel Murphy DO PCP: FELIX Pepe Status:ADM IN Discharge Instructions Diet Discharge Diet: No restrictions DC O2, CPAP, BIPAP needs Home O2 Discharge instructions: No Dressing / Incision Discharge Activity: No Restrictions Follow Up Care Test Results: Test results from this visit will be discussed in further detail at your follow-up appointment, if applicable. Discharge Plan Admission Admit Date/Time: 03/17/25 11:20 Primary Reason for Your Visit: Shortness of breath Attending Provider: Kel Murphy Primary Care Provider: Liudmila Olivera NP Discharge Orders/Prescriptions Prescriptions: New levofloxacin 750 mg tablet 750 mg PO DAILY 5 Days Qty: 5 0RF Continued lovastatin 40 mg tablet 80 mg PO QHS pramipexole 1 mg tablet 1 mg PO BID ipratropium-albuterol 0.5 mg-3 mg(2.5 mg base)/3 mL solution for nebulization 3 ml inhalation Q4H PRN PRN (Reason: SOB /OR WHEEZING) Qty: 180 6RF furosemide 40 mg tablet 40 mg PO QDAY metformin 500 mg tablet 500 mg PO BID hydrocodone-acetaminop hen 5-325 mg tablet 1 tab PO DAILY PRN (Reason: pain) Trelegy Ellipta 100-62.5-25 mcg blister with device 1 inh inhalation Q24H Qty: 60 5RF albuterol sulfate 90 mcg/actuation HFA aerosol inhaler 2 inh inhalation Q4-6H PRN (Reason: shortness of breath or wheezing) Qty: 8.5 5RF bupropion HCl [Wellbutrin SR] 150 mg tablet sustained-release 12 hr 150 mg PO BID Qty: 60 6RF gabapentin 400 mg capsule 400 mg PO TID Patient Comments: TAKE 1 CAPSULE BY MOUTH THREE TIMES DAILY FOR 90 DAYS docusate sodium 100 mg capsule 200 mg PO DAILY Patient Comments: TAKE 1 CAPSULE BY MOUTH 1 (ONE) or 2 (TWO) times a day NEEDED montelukast 10 mg tablet 10 mg PO QHS Patient Comments: TAKE 1 TABLET BY MOUTH AT BEDTIME Premarin 0.625 mg/gram cream 0.625 mg vaginal QWEEK Patient Comments: pt has not started yet levothyroxine 125 mcg tablet 125 mcg PO DAILY lansoprazole 30 mg capsule,delayed release(DR/EC) 30 mg PO DAILY aspirin [Adult Aspirin Regimen] 81 mg tablet,delayed release (DR/EC) 81 mg PO DAILY omega 7-omq-gqg-fish oil [Fish Oil] 300-1,000 mg capsule 1 cap PO BID Referrals / Follow Up: Jose F Chang DO [Med Staff - Active Staff] - Liudmila Olivera NP, REMOTE ADVISOR-C [Primary Care Provider] - Disposition Disposition (needs filled in before D/C Order can be placed): Home, Self Care 03/19/25 1034 Kel Murphy DO CC: REMOTE ADVISOR-C Liudmila Olivera Signed Normal [facility] Glucose measurement at bedsi deOrdered By: Kel Murphy on 03-19-2025 Glucose [Mass/Vol] 123 mg/dL High 74-106 [facility] Comment on above: Orders FollowedMA NAGEMENT OF PATIENT CARE PER NURSING PROTOCOL Gram Stainon 03-19-2025 GS UNK UNK Gram Stain 2+ White Blood Cells No organisms seen Normal [facility] Comment on above: Performed By: #### L 350.1000, M100.2400, M300.2000, L200.0200, M100.2000, M300.3000, M600.3500 #### [facility] [address] [place], [address] 12 Lead EKGon 03-18-2025 12 Lead EKG [facility] [address] [place] [address] 12 Lead EKG 03/18/25 0859 MR#: [id number] Acct: [id number] Name: SARAY SIMON Rep #: [id number] : 1965 59 From: Franco Quach MD Attending Dr: Dr. Kel Murphy, Status : ADM IN Ordering Dr: Jp Lopez MD Date: 03/18/25 Location: U Sex: F C Admitted: 03/17/25 Test Reason : pre op Blood Pressure : */* mmHG Vent. Rate : 86 BPM Atrial Rate : 86 BPM P-R Int : 204 ms QRS Dur : 92 ms QT Int : 394 ms P-R-T Axes : 52 -4 56 degrees QTcB Int : 471 ms Normal sinus rhythm Low voltage QRS Borderline ECG When compared with ECG of 17-Mar-2025 07:37, MANUAL COMPARISON REQUIRED DATA IS UNCONFIRMED Confirmed by HANNAH WASHBURN, FRANCO ([id number]), assignment editor MALKA BLACK ([id number]) on 03/19/2025 6:35:56 AM Referred By: Confirmed By: FRANCO QUACH MD 03/19/25 0636 Date Franco Quach MD CC: FELIX Olivera; Dr. Kel Murphy DO; Dr. Jp Lopez MD Signed Normal [facility] Activated partial thrombopla stin time (aPTT) in platelet poor plasma by coagulation aOrdered By: Jp Lopez on 03-18-2025 aPTT Coag (PPP) [Time] 30.3 s 24.1-36.2 [facility] Anion gap in Serum or Plasma Ordered By: Kel Murphy on 03-18-2025 Anion gap [Moles/Vol] 15 mmol/L 04-01 [facility] [facility] BUN/creatinine ratioOrdered By: Kel Murphy on 03-18-2025 Urea nitrogen/Creatinine [Mass ratio] 19.6 mg/mg 09-06 [facility] Basic Metabolic Profile (BMP )on 03-18-2025 BUN Normal - [facility] Comment on above: Result Comment: OM C ANCELLED Performed By: #### L 350.1000, M100.2400, M300.2000, L200.0200, M100.2000, M300.3000, M600.3500 #### [facility] [address] [place], [address] BUN/CRE Normal - [facility] Comment on above: Result Comment: OM C ANCELLED Performed By: #### L 350.1000, M100.2400, M300.2000, L200.0200, M100.2000, M300.3000, M600.3500 #### [facility] [address] [place], [address] Calcium Normal 7.6-11.0 [facility] Comment on above: Result Comment: OM C ANCELLED Performed By: #### L 350.1000, M100.2400, M300.2000, L200.0200, M100.2000, M300.3000, M600.3500 #### [facility] [address] [place], [address] CL Normal 98-108 [facility] Comment on above: Result Comment: OM C ANCELLED Performed By: #### L 350.1000, M100.2400, M300.2000, L200.0200, M100.2000, M300.3000, M600.3500 #### [facility] [address] [place], [address] CO2 Normal 21.0-32.0 [facility] Comment on above: Result Comment: OM C ANCELLED Performed By: #### L 350.1000, M100.2400, M300.2000, L200.0200, M100.2000, M300.3000, M600.3500 #### [facility] [address] [place], [address] CREAT,SERUM Normal 0.70-1.20 [facility] Comment on above: Result Comment: OM C ANCELLED Performed By: #### L 350.1000, M100.2400, M300.2000, L200.0200, M100.2000, M300.3000, M600.3500 #### [facility] [address] [place], [address] eGFR Normal >60 [facility] Comment on above: Result Comment: OM C ANCELLED Performed By: #### L 350.1000, M100.2400, M300.2000, L200.0200, M100.2000, M300.3000, M600.3500 #### [facility] [address] [place], [address] GAP Normal 5-15 [facility] Comment on above: Result Comment: OM C ANCELLED Performed By: #### L 350.1000, M100.2400, M300.2000, L200.0200, M100.2000, M300.3000, M600.3500 #### [facility] [address] [place], [address] GLU Normal 70-99 [facility] Comment on above: Result Comment: OM C ANCELLED Performed By: #### L 350.1000, M100.2400, M300.2000, L200.0200, M100.2000, M300.3000, M600.3500 #### [facility] [address] [place], [address] Potassium Normal 3.3-5.1 [facility] Comment on above: Result Comment: OM C ANCELLED Performed By: #### L 350.1000, M100.2400, M300.2000, L200.0200, M100.2000, M300.3000, M600.3500 #### [facility] [address] [place], [address] Basic Metabolic Profile (BMP) Normal 133-145 [facility] Comment on above: Result Comment: OM C ANCELLED Performed By: #### L 350.1000, M100.2400, M300.2000, L200.0200, M100.2000, M300.3000, M600.3500 #### [facility] [address] [place], [address] BUN/CRE 19.6 RATIO Normal 10-20 [facility] Comment on above: Performed By: #### L 350.1000, M100.2400, M300.2000, L200.0200, M100.2000, M300.3000, M600.3500 #### [facility] [address] [place], [address] Calcium [Mass/Vol] 9.9 mg/dL Normal 7.6-11.0 [facility] Comment on above: Performed By: #### L 350.1000, M100.2400, M300.2000, L200.0200, M100.2000, M300.3000, M600.3500 #### [facility] [address] [place], [address] Chloride [Moles/Vol] 103 mmol/L Normal 98-108 [facility] Comment on above: Performed By: #### L 350.1000, M100.2400, M300.2000, L200.0200, M100.2000, M300.3000, M600.3500 #### [facility] [address] [place], [address] CO2 [Moles/Vol] 20.8 mmol/L Low 21.0-32.0 [facility] Comment on above: Performed By: #### L 350.1000, M100.2400, M300.2000, L200.0200, M100.2000, M300.3000, M600.3500 #### [facility] [address] [place], [address] Creatinine [Mass/Vol] 0.73 mg/dL Normal 0.70-1.20 [facility] Comment on above: Performed By: #### L 350.1000, M100.2400, M300.2000, L200.0200, M100.2000, M300.3000, M600.3500 #### [facility] [address] [place], [address] ECRCL 92.52 ml/min Normal 50-250 [facility] Comment on above: Performed By: #### L 350.1000, M100.2400, M300.2000, L200.0200, M100.2000, M300.3000, M600.3500 #### [facility] [address] [place], [address] GAP 15 Normal 5-15 [facility] Comment on above: Performed By: #### L 350.1000, M100.2400, M300.2000, L200.0200, M100.2000, M300.3000, M600.3500 #### [facility] [address] [place], [address] GFR/1.73 sq M.predicted among non-blacks MDRD (S/P/Bld) [Vol rate/Area] 93 mL/min/{1.73_m2} Normal >60 [facility] Comment on above: Result Comment: mL/m in/1.73m2 CKD-EPI Creatinine Equation (2020) Performed By: #### L 350.1000, M100.2400, M300.2000, L200.0200, M100.2000, M300.3000, M600.3500 #### [facility] [address] [place], [address] Glucose [Mass/Vol] 175 mg/dL High 70-99 [facility] Comment on above: Performed By: #### L 350.1000, M100.2400, M300.2000, L200.0200, M100.2000, M300.3000, M600.3500 #### [facility] [address] [place], [address] Potassium [Moles/Vol] 4.3 mmol/L Normal 3.3-5.1 [facility] Comment on above: Performed By: #### L 350.1000, M100.2400, M300.2000, L200.0200, M100.2000, M300.3000, M600.3500 #### [facility] [address] [place], [address] Sodium [Moles/Vol] 138 mmol/L Normal 133-145 [facility] Comment on above: Performed By: #### L 350.1000, M100.2400, M300.2000, L200.0200, M100.2000, M300.3000, M600.3500 #### [facility] [address] [place], [address] Urea nitrogen [Mass/Vol] 14 mg/dL Normal 4-19 [facility] Comment on above: Performed By: #### L 350.1000, M100.2400, M300.2000, L200.0200, M100.2000, M300.3000, M600.3500 #### [facility] [address] [place], [address] Bedside Glucoseon 03-18-2025 FINGERSTICK GLU 152 mg/dL High 74-106 [facility] Comment on above: Result Comment: DANNY GEMENT OF PATIENT CARE PER NURSING PROTOCOL Performed By: #### L 501.080 #### [facility] [address] [place], [address] FINGERSTICK GLU 207 mg/dL High 74-106 [facility] Comment on above: Result Comment: DANNY GEMENT OF PATIENT CARE PER NURSING PROTOCOL Performed By: #### L 350.1000, M100.2400, M300.2000, L200.0200, M100.2000, M300.3000, M600.3500 #### [facility] [address] [place], [address] FINGERSTICK GLU 154 mg/dL High 74-106 [facility] Comment on above: Result Comment: DANNY GEMENT OF PATIENT CARE PER NURSING PROTOCOL Performed By: #### L 350.1000, M100.2400, M300.2000, L200.0200, M100.2000, M300.3000, M600.3500 #### [facility] [address] [place], [address] Body fluid appearance (nomin al result)Ordered By: Kel Murphy on 03-18-2025 Appearance (Body fld) CLOUDY [facility] Body fluid color determinati onOrdered By: Kel Murphy on 03-18-2025 Color (Body fld) COLORLESS [facility] Body fluid leukocytes count (number/volume)Ordered By: Kel Murphy on 03-18-2025 WBC (Body fld) [#/Vol] 310 /mm3 [facility] Body fluid lymphocytes/100 l eukocytesOrdered By: Kel Murphy on 03-18-2025 Lymphocytes/100 WBC (Body fld) 18 % [facility] Body fluid macrophage countO rdered By: Kel Murphy on 03-18-2025 Macrophages (Body fld) [#/Vol] 8 % [facility] Body fluid mesothelial cell percentageOrdered By: Kel Murphy on 03-18-2025 Mesothelial cells/100 WBC (Body fld) 0 % [facility] Body fluid other cell count as percentage of leukocytesOrdered By: Kel Murphy on 03-18-2025 Other cells/100 WBC (Body fld) 12 % [facility] Body fluid segmented neutrop hils count (number/volume)Ordered By: Kel Murphy on 03-18-2025 Segmented neutrophils (Body fld) [#/Vol] 56 % [facility] Bronchoscopy Reporton 2024 Bronchoscopy Report [facility] Medical Records Department [address] [place] [address] Bronchoscopy Report MR#: [id number] Acct: [id number] Name: SARAY SIMON Rep #: [id number] : 1965 59 From: Jose F Chang DO PCP: FELIX Pepe Status:ADM IN Patient Name: Saray Simon Procedure Date: 03/18/2025 11:41 AM Date of : 1965 Age: 59 Procedure: Bronchoscopy Indications: Mucous plug Providers: Jose F Chang MD Medicines: See the Anesthesia note for documentation of the administered medications Complications: No immediate complications Procedure: Pre-Anesthesia Assessment: - A History and Physical has been performed. Patient meds and allergies have been reviewed. The risks and benefits of the procedure and the sedation options and risks were discussed with the patient. All questions were answered and informed consent was obtained. Patient identification and proposed procedure were verified prior to the procedure by the physician and the nurse in the procedure room. Mental Status Examination: alert and oriented. Airway Examination: normal oropharyngeal airway. Respiratory Examination: poor air movement. CV Examination: normal. ASA Grade Assessment: II - A patient with mild systemic disease. After reviewing the risks and benefits, the patient was deemed in satisfactory condition to undergo the procedure. The anesthesia plan was to use monitored anesthesia care (MAC). Immediately prior to administration of medications, the patient was re-assessed for adequacy to receive sedatives. The heart rate, respiratory rate, oxygen saturations, blood pressure, adequacy of pulmonary ventilation, and response to care were monitored throughout the procedure. The physical status of the patient was re-assessed after the procedure. After I obtained informed consent, the scope was passed under direct vision. Throughout the procedure, the patient's blood pressure, pulse, and oxygen saturations were monitored continuously. The bronchoscope was introduced through the mouth and advanced to the tracheobronchial tree. The procedure was accomplished without difficulty. The patient tolerated the procedure well. Findings: The nasopharynx/oropharynx appears normal. The larynx appears normal. The vocal cords appear normal. The subglottic space is normal. The trachea is of normal caliber. The jessenia is sharp. The tracheobronchial tree of the right lung was examined to at least the first subsegmental level. Bronchial mucosa and anatomy in the right lung are normal; there are no endobronchial lesions, and no secretions. Left Lung Abnormalities: Notable, mucoid secretions were found in the left lower lobe. They were partially obstructing the airway. Therapeutic suctioning was performed. Mucus and mucus plugs were removed from the airway and the airway was cleared. The bronchoscope was advanced until wedged at the desired location for bronchoalveolar lavage. BAL was performed in the left lower lobe of the lung and sent for cell count, bacterial culture, viral smears culture, and fungal AFB analysis and cytology. 40 mL of fluid were instilled. 20 mL were returned. The return was mucopurulent. Impression: - Mucous plug - The airway examination of the right lung was normal. - Notable, mucoid secretions were found in the left lower lobe. - Therapeutic suctioning was performed. - Bronchoalveolar lavage was performed. Recommendation: - Await BAL results. Procedure Code(s): --- Professional --- 84080, Bronchoscopy, rigid or flexible, including fluoroscopic guidance, when performed; with therapeutic aspiration of tracheobronchial tree, initial 37000, Bronchoscopy, rigid or flexible, including fluoroscopic guidance, when performed; with bronchial alveolar lavage Diagnosis Code(s): --- Professional --- T17.990A, Other foreign object in respiratory tract, part unspecified in causing asphyxiation, initial encounter R09.89, Other specified symptoms and signs involving the circulatory and respiratory systems CPT copyright 2021 [employer]. All rights reserved. The codes documented in this report are preliminary and upon trucksmith review may be revised to meet current compliance requirements. DO Jose F Joshua MD 03/18/2025 12:26:26 PM This report has been signed electronically. Number of Addenda: 0 Note Initiated On: 03/18/2025 11:41 AM 03/18/25 1226 Date Jose F Chang DO Cosigner Signature: Date (if indicated) CC: REMOTE ADVISORBella Olivera; Dr. Jose F Chang, DO Date Dictated: 03/18/25 1141 Date Transcribed: Account Support Analyst: DB Signed Normal [facility] CBC W/Diff, Automatedon 05-0 Absolute Neut Normal 2.0-7.7 [facility] Comment on above: Result Comment: OM C ANCELLED Performed By: #### L 350.1000, M100.2400, M300.2000, L200.0200, M100.2000, M300.3000, M600.3500 #### [facility] [address] [place], [address] HCT Normal 37-47 [facility] Comment on above: Result Comment: OM C ANCELLED Performed By: #### L 350.1000, M100.2400, M300.2000, L200.0200, M100.2000, M300.3000, M600.3500 #### [facility] [address] [place], [address] HGB Normal 12.0-15.0 [facility] Comment on above: Result Comment: OM C ANCELLED Performed By: #### L 350.1000, M100.2400, M300.2000, L200.0200, M100.2000, M300.3000, M600.3500 #### [facility] [address] [place], [address] MCH Normal 27.0-32.0 [facility] Comment on above: Result Comment: OM C ANCELLED Performed By: #### L 350.1000, M100.2400, M300.2000, L200.0200, M100.2000, M300.3000, M600.3500 #### [facility] [address] [place], [address] MCHC Normal 32-36 [facility] Comment on above: Result Comment: OM C ANCELLED Performed By: #### L 350.1000, M100.2400, M300.2000, L200.0200, M100.2000, M300.3000, M600.3500 #### [facility] [address] [place], [address] MCV Normal 81-99 [facility] Comment on above: Result Comment: OM C ANCELLED Performed By: #### L 350.1000, M100.2400, M300.2000, L200.0200, M100.2000, M300.3000, M600.3500 #### [facility] [address] [place], [address] NEUT% Normal 47-70 [facility] Comment on above: Result Comment: OM C ANCELLED Performed By: #### L 350.1000, M100.2400, M300.2000, L200.0200, M100.2000, M300.3000, M600.3500 #### [facility] [address] [place], [address] PLT Normal 150-450 [facility] Comment on above: Result Comment: OM C ANCELLED Performed By: #### L 350.1000, M100.2400, M300.2000, L200.0200, M100.2000, M300.3000, M600.3500 #### [facility] [address] [place], [address] RBC Normal 4.2-5.4 [facility] Comment on above: Result Comment: OM C ANCELLED Performed By: #### L 350.1000, M100.2400, M300.2000, L200.0200, M100.2000, M300.3000, M600.3500 #### [facility] [address] [place], [address] RDW CV Normal 11.6-14.6 [facility] Comment on above: Result Comment: OM C ANCELLED Performed By: #### L 350.1000, M100.2400, M300.2000, L200.0200, M100.2000, M300.3000, M600.3500 #### [facility] [address] [place], [address] RDW SD Normal 35.1-43.9 [facility] Comment on above: Result Comment: OM C ANCELLED Performed By: #### L 350.1000, M100.2400, M300.2000, L200.0200, M100.2000, M300.3000, M600.3500 #### [facility] [address] [place], [address] WBC Normal 4.4-11.0 [facility] Comment on above: Result Comment: OM C ANCELLED Performed By: #### L 350.1000, M100.2400, M300.2000, L200.0200, M100.2000, M300.3000, M600.3500 #### [facility] [address] [place], [address] CBC-Complete Blood Cnt No Di ffon 03-18-2025 Erythrocyte distribution width (RBC) [Ratio] 16.1 % High 11.6-14.6 [facility] Comment on above: Performed By: #### L 350.1000, M100.2400, M300.2000, L200.0200, M100.2000, M300.3000, M600.3500 #### [facility] [address] [place], [address] Hematocrit (Bld) [Volume fraction] 44.8 % Normal 37-47 [facility] Comment on above: Performed By: #### L 350.1000, M100.2400, M300.2000, L200.0200, M100.2000, M300.3000, M600.3500 #### [facility] [address] [place], [address] Hemoglobin (Bld) [Mass/Vol] 14.3 g/dL Normal 12.0-15.0 [facility] Comment on above: Performed By: #### L 350.1000, M100.2400, M300.2000, L200.0200, M100.2000, M300.3000, M600.3500 #### [facility] [address] [place], [address] MCH (RBC) [Entitic mass] 29.2 pg Normal 27.0-32.0 [facility] Comment on above: Performed By: #### L 350.1000, M100.2400, M300.2000, L200.0200, M100.2000, M300.3000, M600.3500 #### [facility] [address] [place], [address] MCHC (RBC) [Mass/Vol] 31.9 g/dL Low 32-36 [facility] Comment on above: Performed By: #### L 350.1000, M100.2400, M300.2000, L200.0200, M100.2000, M300.3000, M600.3500 #### [facility] [address] [place], [address] MCV (RBC) [Entitic vol] 91.4 fL Normal 81-99 [facility] Comment on above: Performed By: #### L 350.1000, M100.2400, M300.2000, L200.0200, M100.2000, M300.3000, M600.3500 #### [facility] [address] [place], [address] Platelet mean volume (Bld) [Entitic vol] 11.2 fL Normal 6.2-12.0 [facility] Comment on above: Performed By: #### L 350.1000, M100.2400, M300.2000, L200.0200, M100.2000, M300.3000, M600.3500 #### [facility] [address] [place], [address] Platelets (Bld) [#/Vol] 272 10*3/uL Normal 150-450 [facility] Comment on above: Performed By: #### L 350.1000, M100.2400, M300.2000, L200.0200, M100.2000, M300.3000, M600.3500 #### [facility] [address] [place], [address] RBC (Bld) [#/Vol] 4.90 10*6/uL Normal 4.2-5.4 [facility] Comment on above: Performed By: #### L 350.1000, M100.2400, M300.2000, L200.0200, M100.2000, M300.3000, M600.3500 #### [facility] [address] [place], [address] RDW SD 53.9 fl High 35.1-43.9 [facility] Comment on above: Performed By: #### L 350.1000, M100.2400, M300.2000, L200.0200, M100.2000, M300.3000, M600.3500 #### [facility] [address] [place], [address] WBC (Bld) [#/Vol] 18.0 10*3/uL High 4.4-11.0 [facility] Comment on above: Performed By: #### L 350.1000, M100.2400, M300.2000, L200.0200, M100.2000, M300.3000, M600.3500 #### [facility] [address] [place], [place], [address] Carbon dioxide, total [Moles /volume] in Central venous bloodOrdered By: Kel Murphy on 03-18-2025 CO2 [Moles/Vol] 20.8 mmol/L Low 21.0-32.0 [facility] Chest 1 View (Portable)on Chest 1 View (Portable) [facility] Imaging Services [address] [place] [address] Chest 1 View (Portable) MR#: [id number] Acct: [id number] Name: SARAY SIMON Rep #: [id number] : 1965 F 59 From: Kole Tao MD PCP: Liudmila Olivera NP-C Status: ADM IN Study: Chest 1 View (Portable) Date of Exam: 03/18/25 Exam# [id number] Ordering Dr: Jose F Chang DO PROCEDURE: CHEST 1 VIEW (PORTABLE) 03/18/2025 REASON FOR EXAM: SOB TECHNIQUE: Frontal view of the chest. COMPARISON: 03/17/2025 FINDINGS: Persistent collapse, consolidation of the retrocardiac left lower lobe again noted. Minimal atelectasis suggested at the right base. The lungs otherwise appear clear. Pulmonary emphysema again noted. Previous anterior cervical disc fusion and intervertebral disc spacers noted. RAD/Chest 1 View (Portable) IMPRESSION: No significant interval change in appearance of the chest as above. Reading Location: [facility] CC: REMOTE ADVISOR-C Liudmila Olivera; Dr. Jose F Chang DO Account Support Analyst: Signed Normal [facility] Chloride assayOrdered By: Tyrone Murphy on 03-18-2025 Chloride [Moles/Vol] 103 mmol/L 98-108 [facility] Cytology report of Body flui d Cyto stainOrdered By: Kel Murphy on 03-18-2025 Cytology report Cyto stain Doc (Body fld) SEE PATHOLOGY REPORT [facility] Comment on above: Specimen submitted t o Anatomical Pathology Department for testing. Cytology, Body Fluid / CSFon 03-18-2025 CYTOLOGY,BF/CSF SEE PATHOLOGY REPORT Normal [facility] Comment on above: Order Comment: BAL L LL Result Comment: Spec imen submitted to Anatomical Pathology Department for testing. Performed By: #### L 350.1000, M100.2400, M300.2000, L200.0200, M100.2000, M300.3000, M600.3500 #### [facility] [address] [place], [place], [id number] Erythrocyte distribution wid th ratioOrdered By: Kel Murphy on 03-18-2025 Erythrocyte distribution width (RBC) [Ratio] 16.1 % High 11.6-14.6 [facility] Erythrocyte distribution wid th standard deviationOrdered By: Kel Murphy on 03-18-2025 Erythrocyte distribution width (RBC) [Ratio] 53.9 fl High 35.1-43.9 [facility] Glomerular filtration rate ( GFR) estimation/1.73 sq m using serum, plasma, or whole bOrdered By: Kel Murphy on 03-18-2025 GFR/1.73 sq M.predicted among non-blacks MDRD (S/P/Bld) [Vol rate/Area] 93 mL/min/{1.73_m2} >60 [facility] Comment on above: mL/min/1.73m2 CKD-EP I Creatinine Equation (2020) Gram stainOrdered By: Carroll Schwarz on 03-18-2025 Microscopic observation Gram stain Nom (Unsp spec) [facility] Hematocrit Auto (Bld) [Volum e fraction]Ordered By: Kel Murphy on 03-18-2025 Hematocrit (Bld) [Volume fraction] 44.8 % 37-47 [facility] Hemoglobin A1con 03-18-2025 HbA1c (Bld) [Mass fraction] 6.0 % High <=5.6 [facility] Comment on above: Result Comment: Norm al < 5.7 % Prediabetic 5.7 - 6.4 % Diabetic >or= 6.5 % Please note range changes. Performed By: #### L 350.1000, M100.2400, M300.2000, L200.0200, M100.2000, M300.3000, M600.3500 #### [facility] [address] [place], [address] Hemoglobin A1c percentageOrd ered By: Jp Lopez on 03-18-2025 HbA1c (Bld) [Mass fraction] 6.0 % High <5.7 [facility] Comment on above: Normal < 5.7 % Predi abetic 5.7 - 6.4 % Diabetic >or= 6.5 % Please note range changes. Hemoglobin measurementOrdere d By: Kel Murphy on 03-18-2025 Hemoglobin (Bld) [Mass/Vol] 14.3 g/dL 12.0-15.0 [facility] International normalized rat io (INR) calculationOrdered By: Jp Lopez on 03-18-2025 INR Coag (Bld) [Relative time] 1.0 {INR} [facility] MCV (mean corpuscular volume ) determinationOrdered By: Kel Murphy on 03-18-2025 MCV (RBC) [Entitic vol] 91.4 fL 81-99 [facility] MR/POSTOP.ANEon 03-18-2025 MR/POSTOP.ANE [facility] Medical Records Department [address] [place] [address] Anesthesia Postop Eval I 03/18/25 1229 MR#: [id number] Acct: [id number] Name: SARAY SMION Rep #: [id number] : 1965 59 From: Lauren Florian CRNA PCP: Liudmila Olivera REMOTE ADVISOR-C Status:ADM IN Y Race: C Location: [place] [address] Anesthesia: Postop Eval I Current Vital Signs Temperature: 99.2 F Pulse Rate: 98 Blood Pressure: 103/58 Respiratory Rate: 14 Pulse Ox: 95 Oxygen Delivery Method: Simple Mask Oxygen Flow Rate (L/min): 6 Assessment Airway patent: Yes Spontaneous unlabored respirations: Yes Mental status: Awake and Calm nausea: No Vomiting: No Anesthesia Complication: No Fluid Hydration Crystalloid volume administer (ml): 400 Total IV fluid infused: 400 Progress Note Anesthesia document: Postop Eval 1 completed: Yes 03/18/25 1230 Date Lauren Florian SUPERVISOR CEREAL Cosigner Signature: Date CC: Signed Normal [facility] [id number] 03-18-2025 MR/POSTOPAN2 [facility] Medical Records Department [address] [place] [address] Anesthesia Postop Eval II 03/18/25 1505 MR#: [id number] Acct: [id number] Name: SARAY SIMON Rep #: [id number] : 1965 59 From: Jp Lopez MD PCP: FELIX Pepe Status:ADM IN Y Race: C Location: [place] [address] Anesthesia Postop Eval I Sum Postop Eval Completion status Anesthesia document: Postop Eval 1 completed: Yes Anesthesia Postop Eval I Summary Anesthesia Postop Eval I Summary: Anesthesia Postop Eval I: Assessment Summary Airway patent Yes 03/18/25 12:30 SUPERVISOR [email or web address] Spontaneous unlabored Yes 03/18/25 12:30 SUPERVISOR CEREAL.LMIL respirations Mental status Awake,Calm 03/18/25 12:30 SUPERVISOR CEREAL.LMIL nausea No 03/18/25 12:30 SUPERVISOR CEREAL.LMIL Vomiting No 03/18/25 12:30 SUPERVISOR CEREAL.LMIL Anesthesia Postop Eval I: Fluid Summary Crystalloid volume administer 400 03/18/25 12:30 SUPERVISOR CEREAL.LMIL (ml) Colloids volume administered ( ml) Blood Product volume administered (ml) Total IV fluid infused 400 03/18/25 12:30 SUPERVISOR CEREAL.LMIL Anesthesia Postop Eval I: Summary Notes Anesthesia Complication No 03/18/25 12:30 SUPERVISOR CEREAL.LMIL Anesthesia Complication Comment: Post-operative progress note Anesthesia: Postop Eval II Evaluation Mental status: Awake and Calm Pain Level: 1 nausea: No Vomiting: No Complications Anesthesia Complication: No 03/18/25 1506 Date Jp Soto Signature: Date CC: Signed Normal [facility] Manual body fluid plasma flavia ls/100 leukocytesOrdered By: Kel Murphy on 03-18-2025 Plasma cells/100 WBC Manual cnt (Body fld) 0 % [facility] Mean corpuscular hemoglobin (MCH) determinationOrdered By: Kel Murphy on 03-18-2025 MCH (RBC) [Entitic mass] 29.2 pg 27.0-32.0 [facility] Mean corpuscular hemoglobin concentration (MCHC) determinationOrdered By: Kel Murpyh on 03-18-2025 MCHC (RBC) [Mass/Vol] 31.9 g/dL Low 32-36 [facility] Mean platelet volume determi nationOrdered By: Kel Murphy on 03-18-2025 Platelet mean volume (Bld) [Entitic vol] 11.2 fL 6.2-12.0 [facility] Microbial respiratory cultur eOrdered By: Kel Mruphy on 03-18-2025 Microorganism identified Cx Nom (Unsp spec) Klebsiella aerogenes Abnormal [facility] Monocyte detectionOrdered By : Kel Murphy on 03-18-2025 Monocytes/100 WBC (Bld) 6 % [facility] No Panel InformationOrdered By: Kel Murphy on 03-18-2025 Body Fluid Comment 2 Not Reportable [facility] Body Fluid RBC 905 /mm3 [facility] Partial Thromboplast Timeon 03-18-2025 aPTT Coag (Bld) [Time] 30.3 s Normal 24.1-36.2 [facility] Comment on above: Performed By: #### L 350.1000, M100.2400, M300.2000, L200.0200, M100.2000, M300.3000, M600.3500 #### [facility] [address] [place], [address] Pathologist interpretation o f Body fluid testsOrdered By: Kel Murphy on 03-18-2025 Pathologist interpretation (Body fld) [Interp] Reviewed [facility] Comment on above: Previous reported re sult: May follow Edited by: KHADIJAH on 03/24/25:323950 [id number] MACROPHAGES1 [id number] RESPIRATORY EPITHELIUMACUTE INFLAMMATION.NO MALIGNANT CELLS IDENTIFIED. Riddhi Barnett MD 03/24/2025 AMENDED REPORT 03/24/25 1353 PATH COMM/BF previously reported as: May follow Platelet countOrdered By: Tyrone Murphy on 03-18-2025 Platelets (Bld) [#/Vol] 272 10*3/uL 150-450 [facility] Potassium measurement (mass/ volume)Ordered By: Kel Murphy on 03-18-2025 Potassium (Unsp spec) [Mass/Vol] 4.3 mmol/L 3.3-5.1 [facility] Prothrombin Time w/INRon INR Coag (PPP) [Relative time] 1.0 {INR} Normal [facility] Comment on above: Performed By: #### L 350.1000, M100.2400, M300.2000, L200.0200, M100.2000, M300.3000, M600.3500 #### [facility] [address] [place], [address] ( PT Coag (PPP) [Time] 13.0 s Normal 11.7-14.9 [facility] Comment on above: Performed By: #### L 350.1000, M100.2400, M300.2000, L200.0200, M100.2000, M300.3000, M600.3500 #### [facility] [address] [place], [address] Prothrombin timeOrdered By: Jp Lopez on 03-18-2025 PT Coag (PPP) [Time] 13.0 s 11.7-14.9 [facility] RBC Auto (Bld) [#/Vol]Ordere d By: Kel Murphy on 03-18-2025 RBC (Bld) [#/Vol] 4.90 10*6/uL 4.2-5.4 [facility] Serum creatinine measurement (mass/volume)Ordered By: Kel Murphy on 03-18-2025 Creatinine [Mass/Vol] 0.73 mg/dL 0.70-1.20 [facility] Serum glucose measurement (m ass/volume)Ordered By: Kel Murphy on 03-18-2025 Glucose [Mass/Vol] 175 mg/dL High 70-99 [facility] Serum or plasma calcium erica urement (mass/volume)Ordered By: Kel Murphy on 03-18-2025 Calcium [Mass/Vol] 9.9 mg/dL 7.6-11.0 [facility] Serum or plasma urea nitroge n measurement (mass/volume)Ordered By: Kel Murphy on 03-18-2025 Urea nitrogen [Mass/Vol] 14 mg/dL 4-19 [facility] Sodium levelOrdered By: Carlo Murphy on 03-18-2025 Sodium [Moles/Vol] 138 mmol/L 133-145 [facility] Special Stain Group IIon Special Stain Group II ----- ---- Patient Age/Sex Location Account Attending Physician ---- SARAY SIMON 59/F [facility] [id number] Dr. Kel Murphy DO ---- Specimen: [id number] Received: 03/18/25-1236 Status: FREDY Brice Num: [id number] Spec Type: Fluid Subm Dr: Dr. Kel Murphy, DO HEADER OPERATION: Bronchoscopy PRE-OP DIAGNOSIS: Abnormal CT scan TISSUE SUBMITTED: A- Left lower lobe fluid for cytology ---- DIAGNOSIS CYTOLOGY A. Left lower lobe fluid: * No malignant cells are identified (See note) Note: The GMS, AFB and PC stains are negative. CYTOLOGY STUDY Slides are reviewed. CYTOLOGY GROSS A. Received is 5 ml of tannish-pink mucoidy-cloudy fluid labeled with the patient's name and and designated per the requisition as Left lower lobe. Submitted for cytology and cell block preparation. Mr 03/19/2025 CPT: 47887 Signed (signature on file) Dr. Sharla Pineda DO 03/31/25 1500 ---- Normal [facility] Comment on above: Performed By: #### L 350.1000, M100.2400, M300.2000, L200.0200, M100.2000, M300.3000, M600.3500 #### [facility] [address] [place], [address] Specimen source identificati on of body fluidOrdered By: Kel Murphy on 03-18-2025 Specimen source Nom (Body fld) BRONCHIAL LAVAGE [facility] Total cell countOrdered By: Kel Murphy on 03-18-2025 Cells counted Molgen (Bld/Tiss) [#] TNP [facility] Comment on above: Test not performed Viral cultureOrdered By: Malcolm Murphy on 03-18-2025 Virus identified Cx Nom (Unsp spec) [facility] White blood cell (WBC) count Ordered By: Kel Murphy on 03-18-2025 WBC (Bld) [#/Vol] 18.0 10*3/uL High 4.4-11.0 [facility] 12 Lead EKGon 03-17-2025 12 Lead EKG [facility] Cardiovascular Services [address] [place] [address] 12 Lead EKG 03/17/25 0737 MR#: [id number] Acct: [id number] Name: SARAY SIMON Rep #: [id number] : 1965 59 From: Franco Quach MD Attending Dr: Dr. Kel Murphy, DO Status : ADM IN Ordering Dr: Wayne Waterman DO Date: 5 Location: [facility] Sex: F C Admitted: 03/17/25 Test Reason : SOB Blood Pressure : */* mmHG Vent. Rate : 102 BPM Atrial Rate : 102 BPM P-R Int : 202 ms QRS Dur : 96 ms QT Int : 370 ms P-R-T Axes : 32 -23 52 degrees QTcB Int : 482 ms Sinus tachycardia Septal infarct , age undetermined Abnormal ECG Confirmed by FRANCO QUACH MD ([id number]), assignment editor STEVEN LAMBERT ([id number]) on 03/18/2025 1:25:00 PM Referred By: Confirmed By: FRANCO QUACH MD 03/18/25 1325 Date Franco Quach MD CC: FELIX Olivera; Dr. Kel Murphy DO; Dr. Wayne Waterman DO Signed Normal [facility] Absolute lymphocyte countOrd ered By: Wayne Waterman on 03-17-2025 Lymphocytes Auto (Unsp spec) [#/Vol] 2.17 10*3/uL 0.83-4.51 [facility] Absolute neutrophil countOrd ered By: Wayne Waterman on 03-17-2025 Neutrophils (Bld) [#/Vol] 9.6 10*3/uL High 2.0-7.7 [facility] Anion gap in Serum or Plasma Ordered By: Wayne Waterman on 03-17-2025 Anion gap [Moles/Vol] 14 mmol/L 5-15 [facility] Automated lymphocyte count a s percentage of total leukocytesOrdered By: Wayne Waterman on 03-17-2025 Lymphocytes/100 WBC Auto (Unsp spec) 17.1 % Low 19-41 [facility] BUN/creatinine ratioOrdered By: Wayne Waterman on 03-17-2025 Urea nitrogen/Creatinine [Mass ratio] 16.6 mg/mg 10- [facility] Base excess Calc (BldV) [Mol es/Vol]Ordered By: Wayne Waterman on 03-17-2025 Venous Blood Base Excess 3 mmol/L -1.0-3.5 [facility] Basic Metabolic Profile (BMP )on 03-17-2025 BUN/CRE 16.6 RATIO Normal - [facility] Comment on above: Performed By: #### L 350.1000, M100.2400, M300.2000, L200.0200, M100.2000, M300.3000, M600.3500 #### [facility] [address] [place], [address] Calcium [Mass/Vol] 9.6 mg/dL Normal 7.6-11.0 [facility] Comment on above: Performed By: #### L 350.1000, M100.2400, M300.2000, L200.0200, M100.2000, M300.3000, M600.3500 #### [facility] [address] [place], [address] Chloride [Moles/Vol] 101 mmol/L Normal 98-108 [facility] Comment on above: Performed By: #### L 350.1000, M100.2400, M300.2000, L200.0200, M100.2000, M300.3000, M600.3500 #### [facility] [address] [place], [address] CO2 [Moles/Vol] 25.3 mmol/L Normal 21.0-32.0 [facility] Comment on above: Performed By: #### L 350.1000, M100.2400, M300.2000, L200.0200, M100.2000, M300.3000, M600.3500 #### [facility] [address] [place], [address] Creatinine [Mass/Vol] 0.80 mg/dL Normal 0.70-1.20 [facility] Comment on above: Performed By: #### L 350.1000, M100.2400, M300.2000, L200.0200, M100.2000, M300.3000, M600.3500 #### [facility] [address] [place], [address] ECRCL 84.94 ml/min Normal 50-250 [facility] Comment on above: Performed By: #### L 350.1000, M100.2400, M300.2000, L200.0200, M100.2000, M300.3000, M600.3500 #### [facility] [address] [place], [address] GAP 14 Normal 5-15 [facility] Comment on above: Performed By: #### L 350.1000, M100.2400, M300.2000, L200.0200, M100.2000, M300.3000, M600.3500 #### [facility] [address] [place], [address] GFR/1.73 sq M.predicted among non-blacks MDRD (S/P/Bld) [Vol rate/Area] 84 mL/min/{1.73_m2} Normal >60 [facility] Comment on above: Result Comment: mL/m in/1.73m2 CKD-EPI Creatinine Equation (2020) Performed By: #### L 350.1000, M100.2400, M300.2000, L200.0200, M100.2000, M300.3000, M600.3500 #### [facility] [address] [place], [address] Glucose [Mass/Vol] 111 mg/dL High 70-99 [facility] Comment on above: Performed By: #### L 350.1000, M100.2400, M300.2000, L200.0200, M100.2000, M300.3000, M600.3500 #### [facility] [address] [place], [address] Potassium [Moles/Vol] 3.9 mmol/L Normal 3.3-5.1 [facility] Comment on above: Performed By: #### L 350.1000, M100.2400, M300.2000, L200.0200, M100.2000, M300.3000, M600.3500 #### [facility] [address] [place], [address] Sodium [Moles/Vol] 140 mmol/L Normal 133-145 [facility] Comment on above: Performed By: #### L 350.1000, M100.2400, M300.2000, L200.0200, M100.2000, M300.3000, M600.3500 #### [facility] [address] [place], [address] Urea nitrogen [Mass/Vol] 13 mg/dL Normal 4-19 [facility] Comment on above: Performed By: #### L 350.1000, M100.2400, M300.2000, L200.0200, M100.2000, M300.3000, M600.3500 #### [facility] [address] [place], [address] Basophil percentageOrdered B y: Wayne FergusonReynoldFina on 03-17-2025 Basophils/100 WBC (Bld) 0.7 % 0-1 [facility] Bedside Glucoseon 03-17-2025 FINGERSTICK GLU 183 mg/dL High 74-106 [facility] Comment on above: Result Comment: DANNY GEMENT OF PATIENT CARE PER NURSING PROTOCOL Performed By: #### L 350.1000, M100.2400, M300.2000, L200.0200, M100.2000, M300.3000, M600.3500 #### [facility] [address] [place], [address] FINGERSTICK GLU 241 mg/dL High 74-106 [facility] Comment on above: Result Comment: DANNY GEMENT OF PATIENT CARE PER NURSING PROTOCOL Performed By: #### L 350.1000, M100.2400, M300.2000, L200.0200, M100.2000, M300.3000, M600.3500 #### [facility] [address] [place], [address] CBC W/Diff, Automatedon - Absolute Lymph 2.17 X10 3/uL Normal 0.83-4.51 [facility] Comment on above: Performed By: #### L 350.1000, M100.2400, M300.2000, L200.0200, M100.2000, M300.3000, M600.3500 #### [facility] [address] [place], [address] Absolute Neut 9.6 X10 3/uL High 2.0-7.7 [facility] Comment on above: Performed By: #### L 350.1000, M100.2400, M300.2000, L200.0200, M100.2000, M300.3000, M600.3500 #### [facility] [address] [place], [address] Basophils/100 WBC (Bld) 0.7 % Normal 0-1 [facility] Comment on above: Performed By: #### L 350.1000, M100.2400, M300.2000, L200.0200, M100.2000, M300.3000, M600.3500 #### [facility] [address] [place], [address] Eosinophils/100 WBC (Bld) 1.3 % Normal 0-5 [facility] Comment on above: Performed By: #### L 350.1000, M100.2400, M300.2000, L200.0200, M100.2000, M300.3000, M600.3500 #### [facility] [address] [place], [address] Erythrocyte distribution width (RBC) [Ratio] 16.0 % High 11.6-14.6 [facility] Comment on above: Performed By: #### L 350.1000, M100.2400, M300.2000, L200.0200, M100.2000, M300.3000, M600.3500 #### [facility] [address] [place], [address] Hematocrit (Bld) [Volume fraction] 46.4 % Normal 37-47 [facility] Comment on above: Performed By: #### L 350.1000, M100.2400, M300.2000, L200.0200, M100.2000, M300.3000, M600.3500 #### [facility] [address] [place], [address] Hemoglobin (Bld) [Mass/Vol] 15.4 g/dL High 12.0-15.0 [facility] Comment on above: Performed By: #### L 350.1000, M100.2400, M300.2000, L200.0200, M100.2000, M300.3000, M600.3500 #### [facility] [address] [place], [address] IG% 0.700 Normal 0.0-0.9 [facility] Comment on above: Result Comment: IG% - Immature Granulocytes (promyelocytes, myelocytes and metamyelocytes) > 1% indicates that a LEFT SHIFT is Present. Performed By: #### L 350.1000, M100.2400, M300.2000, L200.0200, M100.2000, M300.3000, M600.3500 #### [facility] [address] [place], [address] Lymphocytes/100 WBC (Bld) 17.1 % Low 19-41 [facility] Comment on above: Performed By: #### L 350.1000, M100.2400, M300.2000, L200.0200, M100.2000, M300.3000, M600.3500 #### [facility] [address] [place], [address] MCH (RBC) [Entitic mass] 30.1 pg Normal 27.0-32.0 [facility] Comment on above: Performed By: #### L 350.1000, M100.2400, M300.2000, L200.0200, M100.2000, M300.3000, M600.3500 #### [facility] [address] [place], [address] MCHC (RBC) [Mass/Vol] 33.2 g/dL Normal 32-36 [facility] Comment on above: Performed By: #### L 350.1000, M100.2400, M300.2000, L200.0200, M100.2000, M300.3000, M600.3500 #### [facility] [address] [place], [address] MCV (RBC) [Entitic vol] 90.6 fL Normal 81-99 [facility] Comment on above: Performed By: #### L 350.1000, M100.2400, M300.2000, L200.0200, M100.2000, M300.3000, M600.3500 #### [facility] [address] [place], [address] Monocytes/100 WBC (Bld) 4.5 % Normal 0-10 [facility] Comment on above: Performed By: #### L 350.1000, M100.2400, M300.2000, L200.0200, M100.2000, M300.3000, M600.3500 #### [facility] [address] [place], [address] Neutrophils/100 WBC (Bld) 75.7 % High 47-70 [facility] Comment on above: Performed By: #### L 350.1000, M100.2400, M300.2000, L200.0200, M100.2000, M300.3000, M600.3500 #### [facility] [address] [place], [address] Nucleated RBC (Bld) [#/Vol] 0 10*3/uL Normal 0-5 [facility] Comment on above: Performed By: #### L 350.1000, M100.2400, M300.2000, L200.0200, M100.2000, M300.3000, M600.3500 #### [facility] [address] [place], [address] Platelet mean volume (Bld) [Entitic vol] 11.3 fL Normal 6.2-12.0 [facility] Comment on above: Performed By: #### L 350.1000, M100.2400, M300.2000, L200.0200, M100.2000, M300.3000, M600.3500 #### [facility] [address] [place], [address] Platelets (Bld) [#/Vol] 243 10*3/uL Normal 150-450 [facility] Comment on above: Performed By: #### L 350.1000, M100.2400, M300.2000, L200.0200, M100.2000, M300.3000, M600.3500 #### [facility] [address] [place], [address] RBC (Bld) [#/Vol] 5.12 10*6/uL Normal 4.2-5.4 [facility] Comment on above: Performed By: #### L 350.1000, M100.2400, M300.2000, L200.0200, M100.2000, M300.3000, M600.3500 #### [facility] [address] [place], [address] RDW SD 53.3 fl High 35.1-43.9 [facility] Comment on above: Performed By: #### L 350.1000, M100.2400, M300.2000, L200.0200, M100.2000, M300.3000, M600.3500 #### [facility] [address] [place], [address] WBC (Bld) [#/Vol] 12.7 10*3/uL High 4.4-11.0 [facility] Comment on above: Performed By: #### L 350.1000, M100.2400, M300.2000, L200.0200, M100.2000, M300.3000, M600.3500 #### [facility] [address] [place], [address] CO2 (BldV) [Moles/Vol]Ordere d By: Wayne Waterman on 03-17-2025 CO2 [Moles/Vol] 28 mmol/L 23-33 [facility] CO2 (BldV) [Partial pressure ]Ordered By: Wayne Waterman on 03-17-2025 Bed Mix Venous Bld PCO2 at Pat Temp 38.9 mmHg Low 41-51 [facility] CTA Chest W/WO Contraston CTA Chest W/WO Contrast [facility] Imaging Services [address] [place] [address] CTA Chest W/WO Contrast MR#: [id number] Acct: [id number] Name: SARAY SIMON Rep #: [id number] : 1965 F 59 From: Raghu Awad MD PCP: Liudmila Olivera REMOTE ADVISOR-C Status: REG ER Study: CTA Chest W/WO Contrast Date of Exam: 03/17/25 Exam# [id number] Ordering Dr: Wayne Waterman DO PROCEDURE: CTA CHEST W/WO CONTRAST 03/17/2025 REASON FOR EXAM: ASSESS FOR PE, SOB TECHNIQUE: CTA chest was performed with IV contrast. Multiplanar reformats and MIP reconstructions were generated. PATIENT PREPARATION: Per protocol CONTRAST: Isovue 370 VOLUME: 100 mL Gauge IV One or more dose reduction techniques were used (e.g., Automated exposure control, adjustment of the mA and/or kV according to patient size, use of iterative reconstruction technique). RADIATION DOSE SUMMARY: CTDlvol: 7.12+ 13.41 mGy DLP: 447.98 mGycm COMPARISON: 10/06/2024 FINDINGS: Sensitivity for pulmonary embolus limited by suboptimal opacification of the pulmonary arterial tree to 216 Hounsfield units as compared with 292 Hounsfield units in the pulmonary veins. Heart/pericardium: Trace aortic annular calcification.. Aorta: Moderate largely soft atherosclerotic plaque.. Pulmonary arteries: Normal in caliber. No central or definite pulmonary embolism is identified. Lymph nodes: Borderline RIGHT hilar node, 14 mm short axis.. Lungs/pleura: Severe emphysema. Biapical pleural/parenchymal scarring. Elevated LEFT hemidiaphragm with virtually complete LEFT lower lobar consolidation/collapse with preserved enhancement. Mucus impacted bronchi in the region. Additional irregular airspace disease in the lingula and RIGHT lower lobe may in part reflect atelectasis/scarring. RIGHT middle lobes up to 6 x 4 mm are unchanged (series 2, image 84 and 86). Similar vaguely nodular irregular opacity along the superior aspect of the of the oblique fissure on the LEFT measuring 2.5 x 1.3 cm which could reflect scarring (image 174). Airways: As above.. Chest wall: Unremarkable. Upper abdomen: Suspected advanced potentially ulcerative soft atherosclerotic plaque within the minimally imaged abdominal aorta. Musculoskeletal: Mild spondylosis. Thoracic levoscoliosis. Partially imaged ACDF.. CT/CTA Chest W/WO Contrast IMPRESSION: 1. No central or definite pulmonary embolism identified allowing for limitations related to contrast timing. 2. Virtually complete LEFT lower lobar consolidation/collapse . Preserved enhancement suggests the absence of superimposed significant pneumonia/pneumonitis although early pneumonia is difficult to entirely exclude. Given mucous impacted bronchi in the region, consider aspiration. Recommend CT chest in 3 months to ensure no underlying central obstructing process as an alternative etiology. Additionally, recommend ongoing lung cancer screening per the below. 3. Borderline RIGHT hilar lymphadenopathy, nonspecific and potentially reactive in the absence of known malignancy. Attention on above follow-up, which should ideally include IV contrast. 4. Additional description as above. The USPSTF recommends annual screening for lung cancer with low-dose computed tomography (LDCT) in adults aged 50 to 80 years who have a 20 pack-year smoking history and currently smoke or have quit within the past 15 years. Reading Location: [id number] CC: FELIX Olivera; Dr. Wayne Waterman DO Account Support Analyst: Signed Normal [facility] Carbon dioxide, total [Moles /volume] in Central venous bloodOrdered By: Wayne Waterman on 03-17-2025 CO2 [Moles/Vol] 25.3 mmol/L 21.0-32.0 [facility] Chest PA and Lateralon 03-17 Chest PA and Lateral [facility] Imaging Services [address] [place] [place] [address] [id number] Chest PA and Lateral MR#: [id number] Acct: [id number] Name: SARAY SIMON Rep #: [id number] : 1965 F 59 From: Bhavesh Tom MD PCP: FELIX Pepe Status: REG ER Study: Chest PA and Lateral Date of Exam: 03/17/25 Exam# [id number] Ordering Dr: Wayne Waterman DO PROCEDURE: CHEST PA AND LATERAL 03/17/2025 REASON FOR EXAM: SHORTNESS OF BREATH TECHNIQUE: Frontal and lateral views of the chest. COMPARISON: June 28, 2023 FINDINGS: There is mild cardiomegaly. Central vascularity appears increased. There is consolidation in the left medial lung base, retrocardiac region. There is no pneumothorax. There is no definite effusion. There is no visible acute bony abnormality. Aortic calcifications are visible. Hardware is noted in the cervical spine. RAD/Chest PA and Lateral IMPRESSION: There is mild cardiomegaly. Central vascularity appears increased. There is consolidation in the left medial lung base, retrocardiac region. Reading Location: [facility] CC: REMOTE ADVISOR-C Liudmila Olivera; Dr. Wayne Waterman DO Account Support Analyst: Signed Normal [facility] Chloride assayOrdered By: Josesito Waterman on 03-17-2025 Chloride [Moles/Vol] 101 mmol/L 98-108 [facility] Consultation - Intensiviston 03-17-2025 Consultation - Sliver Cutter [facility] Medical Records Department [address] [place] [address] Consultation - Sliver Cutter 03/17/25 1214 MR#: [id number] Acct: [id number] Name: SARAY SIMON Rep #: [id number] : 1965 59 From: Jose F Chang DO PCP: FELIX Pepe Status:ADM IN Location: [place] [address] Assessment Plan Assessment/Plan (1) Acute on chronic respiratory failure with hypoxemia: PLAN: Plan RECOMMENDATIONS: 1. Supplemental oxygen to maintain saturations at or above 90%. 2. Start empiric antimicrobials. 3. Scheduled bronchodilators and steroids. 4. Aggressive bronchopulmonary hygiene, including acetylcysteine. 5. Obtain follow-up chest x-ray tomorrow morning. 6. If persistent lobar collapse is noted on chest imaging tomorrow morning, we will proceed with bronchoscopy at 12:00. 7. N.p.o. after midnight. IMPRESSIONS: 1. Acute on chronic hypoxemic respiratory failure Appears secondary to acute mucous plugging with subsequent left lower lobe consolidation/atelecta sis. The patient has known advanced age COPD along with a baseline oxygen requirement of 3 L/min. For now, we will plan to continue aggressive bronchopulmonary hygiene with scheduled bronchodilators, steroids and Mucomyst. In addition, empiric antibiotics will be initiated. A plain film chest x-ray will be obtained tomorrow morning. If the patient has persistent lobar collapse on follow-up chest imaging, will proceed with bronchoscopy tomorrow afternoon at 12:00. The patient is in agreement with this plan. The patient is to be made n.p.o. at midnight. 2. Chronic tobacco dependency/hypothyroid ism/GERD/hyperlipidemi a Complicates care, management, recovery and prognosis. Continue supportive measures as noted above. This note was generated with [employer] dictation software. It may contain incorrect words, spelling, and punctuation that were not noted in checking the note before signing. HPI Consult Data Date of Consult: 03/17/25 HPI Narrative Reason for Consultation: Acute on chronic respiratory failure HPI Narrative: The patient is a 59-year-old female, with a history as outlined below, who presented to the emergency department on March 17 with worsening shortness of breath. The patient has a known history of advanced age COPD, chronic tobacco dependency and chronic hypoxemic respiratory failure with a baseline requirement of 3 L/min. She is maintained on a triple therapy inhaler regimen at her baseline. She was last seen in the pulmonary medicine office 2 weeks ago. On presentation to the emergency department, the patient was documented to be afebrile and hemodynamically stable. She was initially requiring 5 L/min of supplemental oxygen. Laboratory evaluation revealed a white blood cell count of 12,000. Chemistry profile was unremarkable. Lactate was within normal limits. BNP was normal. COVID, influenza and RSV PCR's were negative. CTA chest showed no evidence for pulmonary embolism but did demonstrate significant bilateral emphysematous changes along with significant left lower lobe consolidation with concern for mucoid impaction. Previously, in 2022, the patient was hospitalized under similar circumstances and underwent bronchoscopy to facilitate airway clearance. Sputum culture at that time was positive for Enterobacter. [facility] Medical History On home oxygen therapy Smoker Moderate COPD (chronic obstructive pulmonary disease) Urinary incontinence Thyroid nodule Suprapubic pain Spinal stenosis in cervical region Pneumothorax of left lung after biopsy Other skilled nursing (current) drug therapy Lumbar radiculopathy Hyperlipidemia Heavy tobacco smoker Chronic headaches GERD (gastroesophageal reflux disease) Frontal lobe deficit Essential hypertension Dysuria Dyspnea Dyslipidemia DDD (degenerative disc disease) Cough Confusional state Chronic pain Chronic obstructive lung disease Bronchospasm Brachial (cervical) neuritis Back pain Aortic valve regurgitation Acute bronchitis Hypothyroidism Abnormal CT scan, chest Home Medications ???Medication ???Instructions ???Recorded ???Last Taken ???Type lovastatin 40 mg tablet 80 mg PO QHS 06/19/18 03/16/25 His tory pramipexole 1 mg tablet 1 mg PO BID 09/19/20 03/17/25 Hist ory ipratropium 0.5 mg-albuterol 3 mg 3 ml inhalation Q4H PRN PRN SOB 0 12/18/22 03/17/25 Rx (2.5 mg base)/3 mL nebulization /OR WHEEZING #180 mL soln docusate sodium 100 mg capsule 200 mg PO DAILY 06/27/23 03/16/25 History gabapentin 400 mg capsule 400 mg PO TID 06/27/23 03/17/25 Hi story montelukast 10 mg tablet 10 mg PO QHS 06/27/23 03/16/25 His tory furosemide 40 mg tablet 40 mg PO QDAY 03/13/24 03/17/25 Hi story metformin 500 mg tablet 500 mg PO BID 11/02/24 03/17/25 Hi story albuterol sulfate 90 m (more content not included)... Normal [facility] D-Dimer Quantitative (DVT/PE )on 03-17-2025 D-DIMER QUANT 1.02 FEU/ug/m Invalid Interpretation Code 0.27-0.49 [facility] Comment on above: Result Comment: D-Di jessica ELEVATED (>0.49): Additional studies and clinical assessments are indicated to conclude diagnosis of: Deep Vein Thrombosis (DVT) or Pulmonary Embolism (PE) CRITICAL VALUE CALLED TO KEV ZARAGOZA (ER) 03/17/25 0825 Ankur Alarcon. RESULTS READ BACK BY SAME. Performed By: #### L 350.1000, M100.2400, M300.2000, L200.0200, M100.2000, M300.3000, M600.3500 #### [facility] [address] [place], [address] D-dimer measurement for deep venous thrombosisOrdered By: Wayne Waterman on 03-17-2025 D-Dimer Quantitative (PE/DVT) 1.02 FEU/ug/m High 0.27-0.49 [facility] Comment on above: D-Dimer ELEVATED (>0 .49): Additional studies and clinicalassessments are indicated to conclude diagnosis of:Deep Vein Thrombosis (DVT) or Pulmonary Embolism (PE)CRITICAL VALUE CALLED TO KEV ZARAGOZA (ER)03/17/25 0825 Ankur Alarcon.RESULTS READ BACK BY SAME. Determination of fraction of inspired oxygenOrdered By: Wayne Waterman on 03-17-2025 Blood Gas Oxygen Percent 5.0 [facility] Emergency Department Summary on 03-17-2025 Emergency Department Summary [facility] Medical Records Department [address] [place] [address] Emergency Department Summary 03/17/25 MR#: [id number] Acct: [id number] Name: SARAY SIMON Rep #: [id number] : 1965 59 From: Wayne Waterman DO PCP: FELIX Pepe Status:ADM IN Location: [place] [address] HPI History of Present Illness Chief Complaint: Shortness of Breath Narrative Narrative: Chief complaint and HPI: History taken by patient as well as medical record. 59-year-old female with past medical history of COPD, tobacco abuse, HLD presents for evaluation of shortness of breath. Patient recently saw pulmonology on 03/02/2025. Per their office note she was placed on Wellbutrin for smoking cessation as well as placed on trilogy and taken off of Breztri. Patient states that she woke up overnight with shortness of breath. She has taken DuoNebs with little improvement. She denies any fever, chills, URI symptoms, chest pain, abdominal pain, nausea, vomiting. States she has some chest tightness when she takes a deep breath then. Denies a history of DVT/PE, blood clotting disorder, recent trauma or surgery, exogenous estrogen use, unilateral leg swelling, known malignancy, travel. Review of systems: See HPI Medications: As listed on the chart Allergies: As listed on the chart PFSH: Per chart Vital signs: As listed on the chart. Reviewed. Physical exam: Gen: A O x3, NAD Head: Normocephalic, atraumatic Eyes: No sclera icterus, conjunctiva clear ENT: Moist mucous membranes Neck: Trachea midline, No JVD CV: Tachycardic, regular rhythm, no murmurs, no peripheral edema Resp: Lungs diminished in the bilateral bases with expiratory wheezing, on 5 L nasal cannula GI: Abd soft, non-distended, non-tender, no r/r/g Musc: Full ROM, no deformity Skin: Warm, dry Neuro: Alert, oriented, grossly intact, sensation intact Psych: Cooperative, appropriate mood and affect [facility] Medical History On home oxygen therapy Smoker Moderate COPD (chronic obstructive pulmonary disease) Urinary incontinence Thyroid nodule Suprapubic pain Spinal stenosis in cervical region Pneumothorax of left lung after biopsy Other director long term care (current) drug therapy Lumbar radiculopathy Hyperlipidemia Heavy tobacco smoker Chronic headaches GERD (gastroesophageal reflux disease) Frontal lobe deficit Essential hypertension Dysuria Dyspnea Dyslipidemia DDD (degenerative disc disease) Cough Confusional state Chronic pain Chronic obstructive lung disease Bronchospasm Brachial (cervical) neuritis Back pain Aortic valve regurgitation Acute bronchitis Hypothyroidism Abnormal CT scan, chest Home Medications ???Medication ???Instructions ???Recorded ???Last Taken ???Type lovastatin 40 mg tablet 80 mg PO QHS 06/19/18 03/16/25 His tory pramipexole 1 mg tablet 1 mg PO BID 09/19/20 03/17/25 Hist ory ipratropium 0.5 mg-albuterol 3 mg 3 ml inhalation Q4H PRN PRN SOB 0 12/18/22 03/17/25 Rx (2.5 mg base)/3 mL nebulization /OR WHEEZING #180 mL soln docusate sodium 100 mg capsule 200 mg PO DAILY 06/27/23 03/16/25 History gabapentin 400 mg capsule 400 mg PO TID 06/27/23 03/17/25 Hi story montelukast 10 mg tablet 10 mg PO QHS 06/27/23 03/16/25 His tory furosemide 40 mg tablet 40 mg PO QDAY 03/13/24 03/17/25 Hi story metformin 500 mg tablet 500 mg PO BID 11/02/24 03/17/25 Hi story albuterol sulfate 90 mcg/actuation 2 inh inhalation Q4-6H PRN 03/02 Unknown Rx aerosol inhaler shortness of breath or wheezing #8.5 grams bupropion HCl 150 mg tablet,12 hr 150 mg PO BID #60 ea 03/02/25 Rx sustained-release (Wellbutrin SR) fluticasone fur. 100 mcg-umeclid 1 inh inhalation Q24H #60 ea 03/0203/17/25 Rx 62.5 mcg-vilant 25 mcg inhalat.powder (Trelegy Ellipta) hydrocodone-acetaminop hen 5-325mg 1 tab PO DAILY PRN pain 03/02/25 03/17/25 History 5mg-325mg aspirin 81 mg tablet,delayed 81 mg PO DAILY 03/17/25 03/17/25 H istory release (Adult Aspirin Regimen) conjugated estrogens 0.625 mg/gram 0.625 mg vaginal QWEEK 03/17/25 Unknown History vaginal cream (Premarin) lansoprazole 30 mg capsule,delayed 30 mg PO DAILY 03/17/25 03/17/25 History release levothyroxine 125 mcg tablet 125 mcg PO DAILY 03/17/25 03/17/25 History omega 4-bcc-qjt-fish oil 300 1 cap PO BID 03/17/25 03/17/25 His tory mg-1,000 mg capsule (Fish Oil) Allergy/AdvReac Type Severity Reaction Status Date / Time ciprofloxacin Allergy Mild severe Verified 03/02/25 08:05 upset GI clarithromycin Allergy Mild severe Verified 03/02/25 08:05 upset GI fenofibrate Allergy Mild Verified 03/02/25 08:05 nabumetone Allergy Mild Verified 03/02/25 08:05 oxybutynin Allergy Mild Verified 04 (more content not included)... Normal [facility] Eosinophil percentageOrdered By: Waynemaribell Waterman on 03-17-2025 Eosinophils/100 WBC (Bld) 1.3 % 0-5 [facility] Erythrocyte distribution wid th (RBC) [Ratio][facility] Erythrocyte distribution width (RBC) [Entitic vol] 53.3 fL High 35.1-43.9 [facility] Erythrocyte distribution wid th ratioOrdered By: [facility] on 03-17-2025 Erythrocyte distribution width (RBC) [Ratio] 16.0 % High 11.6-14.6 [facility] Estimation of creatinine kaylie aranceOrdered By: Truchas Guevara on 03-17-2025 Estimated Creatinine Clearance Calc 84.94 ml/min 50-250 [facility] GFR/1.73 sq M.predicted ines g non-blacks MDRD (S/P/Bld) [Vol rate/Area]Ordered By: [facility] on 03-17-2025 Estimated GFR (MDRD) Non-Af Amer 84 >60 [facility] Comment on above: mL/min/1.73m2 CKD-EP I Creatinine Equation (2020) H AND P Exam - Hospitaliston 03-17-2025 H&P Exam - Hospitalist [facility] Medical Records Department [address] [place] [address] H P Exam - Hospitalist 03/17/25 1014 MR#: [id number] Acct: [id number] Name: SARAY SIMON Rep #: [id number] : 1965 59 From: Kel Murphy DO PCP: Liudmila Olivera, [employer] Status:ADM IN Location: [place] [address] HPI - General General Date of Admission: 03/17/25 Date of Service: 03/17/25 Chief Complaint: Acute shortness of breath HPI Narrative SARAY SIMON, is a 59 F who presented to [facility] ED on 03/17/2025 with acute onset shortness of breath. Patient has history of COPD with emphysema and chronic respiratory failure, wears supplemental oxygen at baseline. Follows with Dr. Chang with pulmonology. She was hospitalized here back in June 2024 for similar presentation and was found to have left lower lobe atelectasis suspected secondary to mucous plugging with pneumonia. She underwent bronchoscopy then with significant mucous plugging relief and she was much improved post bronchoscopy. Patient states she had been doing well recently. Overnight she developed acute onset shortness of breath and came in for further evaluation. CTA chest showed a virtually complete left lower lobe consolidation/collapse concerning for recurrent mucous plugging versus pneumonia. ED physician discussed with Dr. Chang who recommended patient be admitted for further evaluation and likely bronchoscopy. Hospitalist was then contacted for admission. I saw the patient at bedside in the ED. Patient was mildly fatigued appearing but otherwise sitting up in bed and breathing comfortably on 3 L nasal cannula at rest. This is her baseline level of oxygen. Patient states that she does feel improved now compared to overnight but still not back to her baseline. She denies any fevers or chills. She is feeling hungry and is hoping to eat soon. She denies any cough or sputum production. No other acute concerns at this time. [facility] Medical History On home oxygen therapy Smoker Moderate COPD (chronic obstructive pulmonary disease) Urinary incontinence Thyroid nodule Suprapubic pain Spinal stenosis in cervical region Pneumothorax of left lung after biopsy Other director long term care (current) drug therapy Lumbar radiculopathy Hyperlipidemia Heavy tobacco smoker Chronic headaches GERD (gastroesophageal reflux disease) Frontal lobe deficit Essential hypertension Dysuria Dyspnea Dyslipidemia DDD (degenerative disc disease) Cough Confusional state Chronic pain Chronic obstructive lung disease Bronchospasm Brachial (cervical) neuritis Back pain Aortic valve regurgitation Acute bronchitis Hypothyroidism Abnormal CT scan, chest Home Medications ???Medication ???Instructions ???Recorded ???Last Taken ???Type lovastatin 40 mg tablet 80 mg PO QHS 06/19/18 03/16/25 His tory pramipexole 1 mg tablet 1 mg PO BID 09/19/20 03/17/25 Hist ory ipratropium 0.5 mg-albuterol 3 mg 3 ml inhalation Q4H PRN PRN SOB 0 12/18/22 03/17/25 Rx (2.5 mg base)/3 mL nebulization /OR WHEEZING #180 mL soln docusate sodium 100 mg capsule 200 mg PO DAILY 06/27/23 03/16/25 History gabapentin 400 mg capsule 400 mg PO TID 06/27/23 03/17/25 Hi story montelukast 10 mg tablet 10 mg PO QHS 06/27/23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 biopsy Spinal stenosis in cervical region Thyroid nodule Urinary incontinence Uterine cancer (HCC) 10/27/2018 PAST SURGICAL HISTORY Procedure Laterality Date CHEST TUBE (SPECIFY) x2 Post needle biopsy COLONOSCOPY 07/2014 1 polyp COLONOSCOPY FLX DX W/COLLJ SPEC WHEN PFRMD 12/22/[address] CHEST 08/11/2019 Stable lung nodules. Severe emphysema CT NEEDLE BIOPSY Lung ESOPHAGOGASTRODUODENOS COPY TRANSORAL DIAGNOSTIC 12/22/2019 EGD HYSTERECTOMY HX 2005 For enlarged uterus, fibromas(stage 2 precancer), uterine cancer INCISION AND DRAINAGE ABSCESS SIMPLE/SINGLE 03/28/[address] left labia LOW DOSE CT LUNG SCREENING 10/06/2024 [facility]. Nodules stable ORTHOPEDICS SURGERY HX 2016 Cervical spine fusion Social History Tobacco Use Smoking status: Every Day Current packs/day: 1.00 Average packs/day: 1 pack/day for 52.1 years (52.1 ttl pk-yrs) Types: Cigarettes Start date: 11/18/1972 Last attempt to quit: 10/24/2023 Smokeless tobacco: Never Vaping Use Vaping status: Never Used Substance Use Topics Alcohol use: Not Currently Drug use: Never Comment: no reported history FAMILY HISTORY Problem Relation Age of Onset other (Heart disease) Mother other (Lung cancer) Mother Mother - from lung and brain cancer other (Brain Cancer) Mother Stroke Mother COPD Father Father - from COPD Kidney Disease Brother Diabetes Brother Diabetes Brother other (Liver disease) Brother other (Diabetes mellitus) Maternal Grandmother Brain Cancer Maternal Uncle other (Diabetes mellitus) Other Brother ALLERGIES Allergen Reactions Nicotine Hives Adhesive Tape-Silic* Rash rash Carafate [Sucralfat* Intolerance Nausea/stomach upset Ciprofloxacin Intolerance nausea Clarithromycin GI Upset Doxycycline Hcl GI Upset Fenofibrate Intolerance Nausea Fesoterodine Unknown Nabumetone Intolerance, Itching Mouth sores Oxybutynin Intolerance Comment: Excessive dry mouth Sulfa (Sulfonamide * Unknown Symbicort [Budesoni* Shortness of Breath Couldn't breath Terbinafine GI Upset CURRENT MEDICATIONS: nitrofurantoin monohydrate and macrocrystal (MACROBID) 100 mg capsule Take 1 capsule by mouth two times a day for 7 days. pramipexole (MIRAPEX) 1 mg table (more content not included)... Normal [facility] Bacteria Ur Culton 5 Bacteria identified Cx Nom (U) ORGANISM ID: 1 50,000-<100,000 CFU/ml Proteus mirabilis ORGANISM ID: 1 (PROTEUS MIRABILIS) -- ANTIBIOTIC INTERPRETATION KRISTIN STATUS REFERENCE RANGE -- Ampicillin S <=4 F Susceptible <=8 , Intermediate >8 , Resistant >16 Cefazolin S 4 F Susceptible 0-16 , Intermediate <0 or >16 , Resistant >16 For uncomplicated urinary tract infections, cefazolin results can be used to predict susceptibility or resistance to cephalexin. Ceftriaxone S <=1 F Susceptible <=1 , Intermediate >1 , Resistant >=4 Cefepime S <=1 F Susceptible <=2 , Susceptible-Dose Dependent >2 , Resistant >=16 Ertapenem S <=0.25 F Susceptible <=0.5 , Intermediate >.5 , Resistant >1 Aztreonam S <=2 F Susceptible <=4 , Intermediate >4 , Resistant >=16 Ampicillin/Sulbact S <=1 F Piperacillin/Tazobac S <=2 F Gentamicin S <=2 F Susceptible <=4 , Intermediate >4 , Resistant >8 Trimeth sulfameth S <=0.5 F Ciprofloxacin S <=0.25 F Susceptible <0.5 , Intermediate >=.5 , Resistant >=1 Nitrofurantoin R F Abnormal [facility] Comment on above: Performed By: #### 2 4356-8 ####[facility] LABCLIA [id number] [address]#### 630-4 ####[facility] LABORATORYCLIA [id number] [address] 02-02-2025 JARRET Telephone (ELENA) SARAY SIMON ([id number]) 1965 F Date Time Provider Department 02/02/25 LIUDMILA OLIVERA During your visit today, we recorded the following information about you: Fariba Chino MA 02/02/2025 9:34 AM Signed Pt. Lm on vm requesting UA order . She thinks she has UTI. Please advise. JORDIN Yung Kristin C, JENNIFER.FAST FOOD CASHIER 02/02/2025 12:47 PM Signed Thank you. Please see orders. KIERAN Lacy Kristin C, APRN.CNP 02/02/2025 12:48 PM Signed Addended by: LIUDMILA OLIVERA on: 02/02/2025 12:48 PM Modules accepted: Sabiha Godinez MA 02/02/2025 1:11 PM Signed Left message informing patient, phone number to reach the office was left for any questions or concerns. Sabiha Bull MA Allergies As of Date: 02/02/2025 Noted Allergy Reaction NICOTINE 05/08/2018 4 - Hives ADHESIVE TAPE-SILICONES 11/03/2024 2 - Rash Comments: rash CARAFATE (SUCRALFATE) 01/15/2020 5 - Intolerance Comments: Nausea/stomach upset CIPROFLOXACIN 06/28/2016 5 - Intolerance Comments: nausea CLARITHROMYCIN 01/17/2017 8 - GI Upset DOXYCYCLINE HCL 03/25/2023 8 - GI Upset FENOFIBRATE 12/23/2015 5 - Intolerance Comments: Nausea FESOTERODINE 01/12/2019 16 - Unknown NABUMETONE 01/18/2017 5 - Intolerance 9 - Itching Comments: Mouth sores OXYBUTYNIN 12/23/2015 5 - Intolerance Comments: Comment: Excessive dry mouth SULFA (SULFONAMIDE ANTIBIOTICS) 09/04/2014 16 - Unknown SYMBICORT (BUDESONIDE-FORMOTEROL ) 10/19/2020 12 - Shortness of Breath Comments: Couldn't breath TERBINAFINE 07/31/2024 8 - GI Upset Date Reviewed: 12/07/2024 Reviewed by: Fariba Chino MA - Fully Assessed Reason for Visit: Patient Question [1477] Primary Visit Diagnosis:Dysuria [R30.0] Order(s):URINALYSIS (WITH MICROSCOPIC) WITH CULTURE IF INDICATED [SQUACII] Order #: [id number] FUTURE Prescriptions as of 02/02/2025 - pramipexole (MIRAPEX) 1 mg tablet TAKE 1 TABLET BY MOUTH TWICE DAILY - furosemide (LASIX) 40 mg tablet Take 1 tablet by mouth once daily. - metFORMIN (GLUCOPHAGE) 500 mg tablet TAKE 1 TABLET BY MOUTH TWICE DAILY WITH MEALS - famotidine (PEPCID) 40 mg tablet Take 1 tablet by mouth daily at bedtime. - metoprolol succinate ER (TOPROL XL) 25 mg 24 hr tablet Take 0.5 tablets by mouth once daily. - BELBUCA 150 mcg buccal film - predniSONE (DELTASONE) 20 mg tablet 3 tablets by mouth for 3 days, 2 tablets by mouth For 3 days, 1 tablet by mouth For 3 days, then stop. - HYDROcodone-acetaminop hen (NORCO) 5-325 mg per tablet Take 1 tablet by mouth once daily as needed for pain. - lovastatin 40 mg tablet Take 2 tablets by mouth daily at bedtime. - lansoprazole (PREVACID) 30 mg capsule Take 1 capsule by mouth once daily. - levothyroxine (SYNTHROID) 125 mcg tablet Take 1 tablet by mouth once daily. - montelukast (SINGULAIR) 10 mg tablet TAKE 1 TABLET BY MOUTH AT BEDTIME - Ciclopirox (CICLODAN) 8 % solution Apply to affected area daily at bedtime. - Blood-Glucose Meter 1 Units once daily. - Lancets 1 Each once daily. Preferred insurance brand. - blood sugar diagnostic (BLOOD GLUCOSE TEST) test strip 1 Strip once daily. Use preferred insurance brand - SKYRIZI 150 mg/mL injection Subcutaneous for 28 Days - Cholecalciferol, Vitamin D3, 125 mcg (5,000 unit) cap Take 1 capsule by mouth once daily. - BREZTRI AEROSPHERE 160-9-4.8 mcg/actuation HFA aerosol inhaler Inhale 2 Puffs as instructed two times a day. - Incontinence Pad, Liner, Disp (BLADDER CONTROL PADS EX ABSORB) pads 1 Units every 4 hours as needed (incontinence). - ipratropium-albuterol (DUONEB) 0.5 mg-3 mg(2.5 mg base)/3 mL nebu Inhale 3 mL as instructed every 4 hours as needed for wheezing/shortness of breath. - OXYGEN, HOME THERAPY, 3 L/min by Nasal Cannula route as directed. - aspirin, enteric coated (ASPIRIN, ENTERIC COATED) 81 mg EC tablet Take 81 mg by mouth once daily. - gabapentin (NEURONTIN) 400 mg capsule Take 1 capsule by mouth three times daily. - omega 5-tuj-tyz-fish oil 300-1,000 mg cpDR Take 1 capsule by mouth two times a day. - Humidifiers (COOL MIST HUMIDIFIER 1 GALLON) misc 1 Units daily at bedtime. - albuterol HFA (PROVENTIL HFA, VENTOLIN HFA) 90 mcg/actuation inhaler 2 puff Every 6 hours as needed Inhalation PRN Problem List As Of Date 02/02/2025 Noted Resolved Centrilobular emphysema (HCC) [J43.2] 07/19/2016 Primary hypertension [I10] 11/13/2016 Mixed hyperlipidemia [E78.2] 11/13/2016 Arthrodesis status [Z98.1] 12/31/2017 Family history of ischemic heart disease and ot*12/31/2017 Family history of diabetes mellitus [Z83.3] 12/31/2017 GERD without esophagitis [K21.9] 12/31/2017 assisted current use of inhaled steroid [Z79.5*12/31/2017 Nontoxic multinodular goiter [E04.2] 12/31/2017 Complication of surgical procedure [T81.9XXA] 12/31/2017 Postprocedural pn (more content not included)... Normal [facility] Urinalysis complete panel (U )on 02-02-2025 Bacteria LM.HPF (Urine sed) [#/Area] Few Abnormal None Seen [facility] Comment on above: Order Comment: Speci men Type: URINE SPECIMENOrdering Facility: [facility] Address: [address] [place] [address] Performed By: #### 2 4356-8 ####[facility] LABCLIA [id number] [address] [place] [facility]#### 630-4 ####[facility] LABORATORYCLIA [id number] [address] [place] Bilirubin Ql (U) Negative Normal Negative [facility] Comment on above: Order Comment: Speci men Type: URINE SPECIMENOrdering Facility: [facility] Address: [address] [place] [address] Performed By: #### 2 4356-8 ####[facility] LABCLIA [id number] [address] [place] [facility]#### 630-4 ####[facility]ORATORYCLIA [id number] [address] Clarity (Unsp spec) Cloudy Abnormal Clear [facility] Comment on above: Order Comment: Speci men Type: URINE SPECIMENOrdering Facility: [facility] Address: [address] [place] [address] Performed By: #### 2 4356-8 ####[facility] [place] LABCLIA [id number] [address]#### 630-4 ####[facility] LABORATORYCLIA [id number] [address] Color (U) Yellow Normal Yellow [facility] Comment on above: Order Comment: Speci men Type: URINE SPECIMENOrdering Facility: [facility] Address: [address] [place] [address] Performed By: #### 2 4356-8 ####[facility] LABCLIA [id number] [address]#### 630-4 ####[facility] LABORATORYCLIA [id number] [address] Epithelial cells LM.HPF (Urine sed) [#/Area] Moderate Normal [facility] Comment on above: Order Comment: Speci men Type: URINE SPECIMENOrdering Facility: [facility] Address: [address] [place] [address] Performed By: #### 2 4356-8 ####[facility] LABCLIA [id number] [address]#### 630-4 ####[facility] LABORATORYCLIA [id number] [address] Glucose Test strip (U) [Mass/Vol] Negative Normal Negative [facility] Comment on above: Order Comment: Speci men Type: URINE SPECIMENOrdering Facility: [facility] Address: [address] [place] [address] Performed By: #### 2 4356-8 ####[facility] LABCLIA [id number] [place], [place] [address] [place] [address] [place]#### 630-4 ####[facility]ORATORYCLIA [id number] [address] [place] [facility] Hemoglobin Ql (U) Trace Abnormal Negative [facility] Comment on above: Order Comment: Speci men Type: URINE SPECIMENOrdering Facility: [facility] Address: [address] [place] [address] Performed By: #### 2 4356-8 ####[facility] LABCLIA [id number] [address] [place]#### 630-4 ####[facility]ORYCLIA [id number] [address] [place] [facility] Ketones Ql (U) Negative Normal Negative [facility] Comment on above: Order Comment: Speci men Type: URINE SPECIMENOrdering Facility: [facility] Address: [address] [place] [address] Performed By: #### 2 4356-8 ####[facility] LABCLIA [id number] [address]#### 630-4 ####[facility]ORYCLIA [id number] [address] [place] Leukocyte esterase Test strip Ql (U) 2+ Abnormal Negative [facility] Comment on above: Order Comment: Speci men Type: URINE SPECIMENOrdering Facility: [facility] Address: [address] [place] [address] Performed By: #### 2 4356-8 ####[facility] LABCLIA [id number] [address]#### 630-4 ####[facility]ORATORYCLIA [id number] [place] [address] [place] Nitrite Ql (U) Negative Normal Negative [facility] Comment on above: Order Comment: Speci men Type: URINE SPECIMENOrdering Facility: [facility] Address: [address] [place] [address] Performed By: #### 2 4356-8 ####[facility] LABCLIA [id number] [address]#### 630-4 ####[facility] LABORATORYCLIA [id number] [address] pH (U) 7.0 [pH] Normal 5.0-8.0 [facility] Comment on above: Order Comment: Speci men Type: URINE SPECIMENOrdering Facility: [facility] Address: [address] [place] [address] Performed By: #### 2 4356-8 ####[facility] LABCLIA [id number] [address]#### 630-4 ####[facility] LABORATORYCLIA [id number] [address] Protein (U) [Mass/Vol] Negative Normal Negative [facility] Comment on above: Order Comment: Speci men Type: URINE SPECIMENOrdering Facility: [facility] Address: [address] [place] [address] Performed By: #### 2 4356-8 ####[facility] LABCLIA [id number] [address]#### 630-4 ####[facility] LABORATORYCLIA [id number] [address] RBC LM.HPF (Urine sed) [#/Area] 0-3 /HPF Normal 0-3 /HPF [facility] Comment on above: Order Comment: Speci men Type: URINE SPECIMENOrdering Facility: [facility] Address: [address] [place] [address] Performed By: #### 2 4356-8 ####[facility] LABCLIA [id number] [address]#### 630-4 ####[facility] LABORATORYCLIA [id number] [address] STATES OF [facility] Specific gravity (U) [Rel density] 1.015 Normal 1.005-1.030 [facility] Comment on above: Order Comment: Speci men Type: URINE SPECIMENOrdering Facility: [facility] Address: [address] [place] [address] Performed By: #### 2 4356-8 ####[facility] LABCLIA [id number] [address]#### 630-4 ####[facility] LABORATORYCLIA [id number] [address] Urobilinogen Ql (U) 0.2 EU/dL Normal 0.2-1.0 EU/dL [facility] Comment on above: Order Comment: Speci men Type: URINE SPECIMENOrdering Facility: [facility] Address: [address] [place] [address] Performed By: #### 2 4356-8 ####[facility] LABCLIA [id number] [address]#### 630-4 ####[facility] LABORATORYCLIA [id number] [address] WBC LM.HPF (Urine sed) [#/Area] /[HPF] Abnormal 0-5 /HPF [facility] Comment on above: Order Comment: Speci men Type: URINE SPECIMENOrdering Facility: [facility] Address: [address] [place] [address] Performed By: #### 2 4356-8 ####[facility] LABCLIA [id number] [address]#### 630-4 ####[facility] LABORATORYCLIA [id number] [address] [place] 12-23-2024 JARRET Telephone ([facility]) SARAY SIMON ([id number]) 1965 F Date Time Provider Department 12/23/24 LIUDMILA OLIVERA During your visit today, we recorded the following information about you: Fariba Chino MA 12/23/2024 11:44 AM Signed Received fax from [employer] stating cimetidine 400mg is not covered. Placed in red folder to review. JORDIN Yung Kristin C, APRN.FAST FOOD CASHIER 12/25/2024 8:28 AM Signed Please let patient know, I can try sending in famotidine. KIERAN Lacy Kristin C, APRN.CNP 12/25/2024 8:29 AM Signed Addended by: LIUDMILA OLIVERA on: 12/25/2024 08:29 AM Modules accepted: Orders Allergies As of Date: 12/23/2024 Noted Allergy Reaction NICOTINE 05/08/2018 4 - Hives ADHESIVE TAPE-SILICONES 11/03/2024 2 - Rash Comments: rash CARAFATE (SUCRALFATE) 01/15/2020 5 - Intolerance Comments: Nausea/stomach upset CIPROFLOXACIN 06/28/2016 5 - Intolerance Comments: nausea CLARITHROMYCIN 01/17/2017 8 - GI Upset DOXYCYCLINE HCL 03/25/2023 8 - GI Upset FENOFIBRATE 12/23/2015 5 - Intolerance Comments: Nausea FESOTERODINE 01/12/2019 16 - Unknown NABUMETONE 01/18/2017 5 - Intolerance 9 - Itching Comments: Mouth sores OXYBUTYNIN 12/23/2015 5 - Intolerance Comments: Comment: Excessive dry mouth SULFA (SULFONAMIDE ANTIBIOTICS) 09/04/2014 16 - Unknown SYMBICORT (BUDESONIDE-FORMOTEROL ) 10/19/2020 12 - Shortness of Breath Comments: Couldn't breath TERBINAFINE 07/31/2024 8 - GI Upset Date Reviewed: 12/07/2024 Reviewed by: Fariba Chino MA - Fully Assessed Reason for Visit: Electronic Communication [890] Cmt: Darleen form Order(s):famotidine (PEPCID) 40 mg tabletTake 1 tablet by mouth daily at bedtime.Disp: 90 tabletRfl: 3 Prescriptions as of 12/25/2024 - famotidine (PEPCID) 40 mg tablet Take 1 tablet by mouth daily at bedtime. - metoprolol succinate ER (TOPROL XL) 25 mg 24 hr tablet Take 0.5 tablets by mouth once daily. - BELBUCA 150 mcg buccal film - predniSONE (DELTASONE) 20 mg tablet 3 tablets by mouth for 3 days, 2 tablets by mouth For 3 days, 1 tablet by mouth For 3 days, then stop. - HYDROcodone-acetaminop hen (NORCO) 5-325 mg per tablet Take 1 tablet by mouth once daily as needed for pain. - lovastatin 40 mg tablet Take 2 tablets by mouth daily at bedtime. - lansoprazole (PREVACID) 30 mg capsule Take 1 capsule by mouth once daily. - levothyroxine (SYNTHROID) 125 mcg tablet Take 1 tablet by mouth once daily. - montelukast (SINGULAIR) 10 mg tablet TAKE 1 TABLET BY MOUTH AT BEDTIME - Ciclopirox (CICLODAN) 8 % solution Apply to affected area daily at bedtime. - furosemide (LASIX) 40 mg tablet take 1 tablet by mouth once daily. - pramipexole (MIRAPEX) 1 mg tablet take 1 tablet by mouth twice daily - Blood-Glucose Meter 1 Units once daily. - Lancets 1 Each once daily. Preferred insurance brand. - blood sugar diagnostic (BLOOD GLUCOSE TEST) test strip 1 Strip once daily. Use preferred insurance brand - SKYRIZI 150 mg/mL injection Subcutaneous for 28 Days - metFORMIN (GLUCOPHAGE) 500 mg tablet Take 1 tablet by mouth two times a day with meals. - Cholecalciferol, Vitamin D3, 125 mcg (5,000 unit) cap Take 1 capsule by mouth once daily. - BREZTRI AEROSPHERE 160-9-4.8 mcg/actuation HFA aerosol inhaler Inhale 2 Puffs as instructed two times a day. - Incontinence Pad, Liner, Disp (BLADDER CONTROL PADS EX ABSORB) pads 1 Units every 4 hours as needed (incontinence). - ipratropium-albuterol (DUONEB) 0.5 mg-3 mg(2.5 mg base)/3 mL nebu Inhale 3 mL as instructed every 4 hours as needed for wheezing/shortness of breath. - OXYGEN, HOME THERAPY, 3 L/min by Nasal Cannula route as directed. - aspirin, enteric coated (ASPIRIN, ENTERIC COATED) 81 mg EC tablet Take 81 mg by mouth once daily. - gabapentin (NEURONTIN) 400 mg capsule Take 1 capsule by mouth three times daily. - omega 8-lcz-mos-fish oil 300-1,000 mg cpDR Take 1 capsule by mouth two times a day. - Humidifiers (COOL MIST HUMIDIFIER 1 GALLON) misc 1 Units daily at bedtime. 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 Normal [facility] CNCOon 12-18-2024 CNCO Letter Text Letter Text Normal [facility] ECHOon 12-15-2024 Echocardiography Echocardiography Report: Transthoracic Echo [facility] Office Date of service: 12/15/2024 8:36:50 AM CLEANER Ordering physician: JESSI BOWSER Indication: Shortness of Breath Technologist: Armani Long Interpreting physician: Jessi Bowser MD PATIENT: Name: MS. SARAY SIMON : 1965 Age: 59 years Gender: F History of hypertension, diabetes mellitus and dyslipidemia. Primary rhythm: sinus. Height: 167.60 cm BSA: 2.12 m Weight: 96.16 kg BMI: 34.2 kg/m Heart rate 87 bpm Blood pressure 128/80 mmHg Color Doppler was utilized to interrogate the cardiac valves assessed and spectral Doppler was utilized to determine the flow velocities and pressure gradients reported in this exam. Myocardial strain analysis was performed in this exam to aid in the assessment of cardiac function. MEASUREMENTS: Value Indexed Normal Max aortic dimension 4.0 cm Ao < 3.8 Left atrial volume 38 ml (Dang's) 19 ml/m Taylor <= 34 LV ID (diastole) 4.4 cm (2D) 2.09 cm/m LV ID (systole) 2.0 cm (2D) 0.95 cm/m IVS, leaflet tips 0.8 cm (2D) Posterior wall thickness 0.9 cm (2D) Left ventricular mass 124 g (2D) 59 g/m LV stroke volume 50 ml (2D biplane) LV end diastolic volume 73 ml (2D biplane) 34.7 ml/m 29<=EDVi<62 LV end systolic volume 23 ml (2D biplane) 11.0 ml/m Ejection Fraction 68 % (2D biplane) EF > 54 FINDINGS: LEFT VENTRICLE The left ventricle is normal in size. Left ventricular systolic function is normal globally. Global LV myocardial strain is normal. Grade I left ventricular diastolic dysfunction. Mitral annular lateral E/e': 8.3. Mitral annular septal E/e': 6.8. Wall Motion: All scored segments are normal. RIGHT VENTRICLE The right ventricle is normal in size. Right ventricular systolic function is normal. Estimated right ventricular systolic pressure is 32 mmHg consistent with normal pulmonary artery pressures. Estimated right atrial pressure is 3 mmHg based on IVC assessment. LEFT ATRIUM The left atrial cavity is normal in size. Pulmonary Veins: The pulmonary venous pattern showed normal systolic flow. RIGHT ATRIUM The right atrial cavity is normal in size. Inferior Vena Cava: The inferior vena cava appears normal measuring 1.6 cm. The vessel decreases greater than 50 percent with inspiration. MITRAL VALVE The mitral valve leaflets are structurally normal. There is mild mitral annular calcification observed posterior. There is trace mitral valve regurgitation. The pressure half time is 74 msec. The peak mitral E/A ratio is 0.68. The average mitral E/e' ratio is 7.6. The mitral flow deceleration time is 254 msec. TRICUSPID VALVE There is trace tricuspid valve regurgitation. There is no thickening. The hepatic venous pattern showed normal systolic flow. AORTIC VALVE The aortic valve cusps are structurally normal. There is no aortic valve regurgitation. Tricuspid aortic valve. PULMONIC VALVE The pulmonic valve cusps are structurally normal. There is trace pulmonic valve regurgitation. AORTA The visualized aorta is dilated. Measurements - Sinus: 3.7 cm. Mid ascending aorta 3.8 cm. Distal ascending aorta 4.0 cm. Mid arch 3.1 cm. INTERATRIAL SEPTUM The interatrial septum is normal. PERICARDIUM The pericardium is normal. CONCLUSIONS: - Exam indication: Shortness of Breath - The left ventricle is normal in size. Left ventricular systolic function is normal. EF = 68 5% (2D biplane) Grade I left ventricular diastolic dysfunction. GLS= -19.9% Normal. - The right ventricle is normal in size. Right ventricular systolic function is normal. - The visualized aorta is dilated with a maximal dimension of 4.0 cm. - Exam was compared with the prior OUTSIDE echocardiographic exam performed on 11/27/2023. Prior RVSP was 39 mmHg. Prior mid ascending Aorta Dimension was 3.7cm. Prior EF 70% * * * Final * * * [facility] : [id number] Normal [facility] [place] 12-09-2024 JARRET Telephone ([facility]) SARAY SIMON ([id number]) 1965 F Date Time Provider Department 12/09/24 LIUDMILA OLIVERA During your visit today, we recorded the following information about you: Fariba Chino MA 12/09/2024 7:14 AM Signed ----- Message from Liudmila Olivera APRN.FAST FOOD CASHIER sent at 12/08/2024 5:31 PM EST ----- Negative COVID/Flu/RSV. Liudmila Olivera APRN.CNP Allergies As of Date: 12/09/2024 Noted Allergy Reaction NICOTINE 05/08/2018 4 - Hives ADHESIVE TAPE-SILICONES 11/03/2024 2 - Rash Comments: rash CARAFATE (SUCRALFATE) 01/15/2020 5 - Intolerance Comments: Nausea/stomach upset CIPROFLOXACIN 06/28/2016 5 - Intolerance Comments: nausea CLARITHROMYCIN 01/17/2017 8 - GI Upset DOXYCYCLINE HCL 03/25/2023 8 - GI Upset FENOFIBRATE 12/23/2015 5 - Intolerance Comments: Nausea FESOTERODINE 01/12/2019 16 - Unknown NABUMETONE 01/18/2017 5 - Intolerance 9 - Itching Comments: Mouth sores OXYBUTYNIN 12/23/2015 5 - Intolerance Comments: Comment: Excessive dry mouth SULFA (SULFONAMIDE ANTIBIOTICS) 09/04/2014 16 - Unknown SYMBICORT (BUDESONIDE-FORMOTEROL ) 10/19/2020 12 - Shortness of Breath Comments: Couldn't breath TERBINAFINE 07/31/2024 8 - GI Upset Date Reviewed: 12/07/2024 Reviewed by: Fariba Chino MA - Fully Assessed Prescriptions as of 12/09/2024 - BELBUCA 150 mcg buccal film - predniSONE (DELTASONE) 20 mg tablet 3 tablets by mouth for 3 days, 2 tablets by mouth For 3 days, 1 tablet by mouth For 3 days, then stop. - HYDROcodone-acetaminop hen (NORCO) 5-325 mg per tablet Take 1 tablet by mouth once daily as needed for pain. - lovastatin 40 mg tablet Take 2 tablets by mouth daily at bedtime. - cimetidine (TAGAMET) 400 mg tablet TAKE 1 TABLET BY MOUTH TWICE DAILY - lansoprazole (PREVACID) 30 mg capsule Take 1 capsule by mouth once daily. -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 account the patient's history. It is recommended to retest PCT within 6-24 hours if any concentrations <2 ng/mL are obtained. Specimen source identificati on of body fluidOrdered By: Jose F Chang on 06-28-2023 Specimen source Nom (Body fld) BRONCHIAL LAVAGE [facility] Total cell countOrdered By: Jose F Chang on 06-28-2023 Cells counted [employer] (Bld/Tiss) [#] TNP [facility] Comment on above: Test not performed STREP A MOLECULAR (POC)on Procedural Control Valid [facility] Strep A (POCT) Negative Negative [facility] MRI CERVICAL SPINE WO/W IVCO Non 07-12-2022 [facility] CBC panel Auto (Bld)on 04-23 Erythrocyte distribution width (RBC) [Ratio] 15.2 % High 11.5 - 15.0 % [facility] Hematocrit (Bld) [Volume fraction] 45.2 % 36.0 - 46.0 % [facility] Hemoglobin (Bld) [Mass/Vol] 14.2 g/dL 11.5 - 15.5 g/dL [facility] MCH (RBC) [Entitic mass] 30.7 pg 26.0 - 34.0 pg [facility] MCHC (RBC) [Mass/Vol] 31.4 g/dL 30.5 - 36.0 g/dL [facility] MCV (RBC) [Entitic vol] 97.6 fL 80.0 - 100.0 fL [facility] Platelet mean volume (Bld) [Entitic vol] 11.8 fL 9.0 - 12.7 fL [facility] Platelets (Bld) [#/Vol] 214 10*3/uL 150 - 400 k/uL [facility] RBC (Bld) [#/Vol] 4.63 10*6/uL 3.90 - 5.2 0 m/uL [facility] WBC (Bld) [#/Vol] 8.23 10*3/uL 3.70 - 11. 00 k/uL [facility] Comprehensive metabolic 2000 panelon 04-23-2022 Albumin [Mass/Vol] 4.8 g/dL 3.9 - 4.9 g/dL [facility] ALP [Catalytic activity/Vol] 85 U/L 34 - 123 U/L [facility] ALT With P-5'-P [Catalytic activity/Vol] 20 U/L 7 - 38 U/L [facility] Anion gap [Moles/Vol] 13 mmol/L 9 - 18 mmol/L [facility] AST With P-5'-P [Catalytic activity/Vol] 18 U/L 13 - 35 U/L [facility] Bilirubin [Mass/Vol] 0.4 mg/dL 0.2 - 1 .3 mg/dL [facility] Calcium [Mass/Vol] 9.5 mg/dL 8.5 - 10. 2 mg/dL [facility] Chloride [Moles/Vol] 102 mmol/L 97 - 10 5 mmol/L [facility] CO2 [Moles/Vol] 26 mmol/L 22 - 30 mmol/L [facility] Creatinine [Mass/Vol] 0.72 mg/dL 0.58 - 0.96 mg/dL [facility] Estimated Glomerular Filtration Rate 97 mL/min/1.73m >=60 mL/min/1.73m [facility] Glucose [Mass/Vol] 86 mg/dL 74 - 99 mg/dL [facility] Potassium [Moles/Vol] 4.1 mmol/L 3.7 - 5.1 mmol/L [facility] Protein [Mass/Vol] 7.5 g/dL 6.3 - 8.0 g/dL [facility] Sodium [Moles/Vol] 141 mmol/L 136 - 144 mmol/L [facility] Urea nitrogen [Mass/Vol] 10 mg/dL 7 - 21 mg/dL [facility] TSH BLDon 04-23-2022 TSH Qn 3.000 m[IU]/L 0.270 - 4.200 mIU/L [facility] UA DIP, URINE (POC)on 2021 BILIRUBIN UA (POCT) Negative Negative [facility] CLARITY UA (POCT) Clear [facility] COLOR UA (POCT) Yellow [facility] GLUCOSE UA (POCT) Negative Negative mg/dL [facility] HEMOGLOBIN/BLOOD UA (POCT) Trace-intact Abnormal Negative [facility] KETONE UA (POCT) Negative Negative mg/dL [facility] LEUKOCYTES UA (POCT) Negative Negative [facility] NITRITE UA (POCT) Negative Negative [facility] PH UA (POCT) 7.0 4.5 - 8.0 [facility] Protein Ql (U) Negative Negative mg/dL [facility] SPECIFIC GRAVITY UA (POCT) 1.020 1.005 - 1.030 [facility] UROBILINOGEN UA (POCT) 0.2 E.U./dL Kathia l E.U./dL [facility] NARINDER SCREENINGon 03-01-2022 [facility] URINE CULTUREon 02-22-2022 Bacteria identified Cx Nom (U) 1,000 - <5,000 CFU/ml Lactose fermenting gram negative rods Abnormal [facility] Bacteria identified Cx Nom (U) 1,000 - <5,000 CFU/ml Normal urogenital collins [facility] UA DIP, URINE (POC)on 2021 BILIRUBIN UA (POCT) Negative Negative [facility] CLARITY UA (POCT) Clear [facility] COLOR UA (POCT) Yellow [facility] GLUCOSE UA (POCT) Negative Negative mg/dL [facility] HEMOGLOBIN/BLOOD UA (POCT) Trace-intact Abnormal Negative [facility] KETONE UA (POCT) Negative Negative mg/dL [facility] LEUKOCYTES UA (POCT) Trace Abnormal Negative [facility] NITRITE UA (POCT) Negative Negative [facility] PH UA (POCT) 6.0 4.5 - 8.0 [facility] Protein Ql (U) Negative Negative mg/dL [facility] SPECIFIC GRAVITY UA (POCT) <=1.005 Abnormal 1.005 - 1.030 [facility] UROBILINOGEN UA (POCT) 0.2 E.U./dL Kathia l E.U./dL [facility] SCREENINGon 12-06-2020 [facility] SCREENING Final Report DATE OF EXAM: Dec 06 2020 9:25AM LDW [id number] - [facility] SCREENING / PROCEDURE REASON: Breast cancer screening by mammogram Physician Interpretation #[id number] - [facility] SCREENING BILATERAL DIGITAL SCREENING MAMMOGRAM WITH CAD: 12/06/2020 HISTORY: / Screening Mammogram-Patient reports NO symptoms. RESULT: TECHNIQUE: The study was acquired using full field digital technology and interpreted from soft copy. Current study was also evaluated with a Computer Aided Detection (CAD). Comparison is made to exams dated: 12/03/2019 mammogram, 08/19/2018 mammogram, 04/17/2017 mammogram, 02/07/2016 mammogram, and 08/31/2014 mammogram - [facility]. The tissue of both breasts is predominantly fatty. No significant masses, calcifications, or other findings are seen in either breast. There has been no significant interval change. IMPRESSION: NEGATIVE There is no mammographic evidence of malignancy. A 1 year screening mammogram is recommended. Jayson cat/heather:12/06/2020 14:21:33 Steward/Stewardess Dining Room(s): Joselo Garcia (Molly)(M), [facility] letter sent: Normal over 40 Mammogram BI-RADS: 1 Negative Multiple national specialty organizations have released breast cancer screening guidelines for women at average risk for developing breast cancer - guidelines that are based on both evidence and opinion, yet differ on when to start and how often to screen for breast cancer. With representation from Breast Imaging, Internal Medicine, Women's Health, Family Medicine, and Medical/Surgical Oncology, the [facility] has carefully reviewed the data and reached the following consensus: 1) All women should engage in shared decision-making with their providers to decide when to start and how often to screen; 2) All women should have the opportunity to start screening mammography at age 40; 3) For women ages 45-55, we recommend annual screening mammograms; 4) For women ages 55 and over, we support both the transition from an annual to a biennial interval if this aligns more with patient's values and preferences, or continuation with annual screening; 5) All women should discuss with their providers when to stop screening mammograms. Account Support Analyst: Heather Transcribe Date/Time: Dec 06 2020 9:06A Dictated by : JAYSON HERNANDEZ MD This examination was interpreted and the report reviewed and electronically signed by: JAYSON HERNANDEZ MD on Dec 06 2020 2:21PM EST Normal [facility] US THYROID/PARATHYROIDon US THYROID/PARATHYROID Final Report DATE OF EXAM: Nov 24 2020 10:14AM LDU 1048 - US THYROID/PARATHYROID / PROCEDURE REASON: multiple diagnoses Physician Interpretation EXAMINATION: THYROID ULTRASOUND CLINICAL HISTORY: Hypothyroidism, acquired Thyroid nodule TECHNIQUE: Sonography and Doppler imaging of the thyroid was performed. Images were obtained and stored in a permanent archive. MQ: [id number]_1 COMPARISON: Thyroid ultrasound 11/17/2019 RESULT: Right Lobe: 3.6 x 1.2 x 1.1 cm; homogeneous echogenicity, increased vascular flow on color Doppler imaging. Left Lobe: 2.2 x 1.0 x 1.0 cm; homogeneous echogenicity, expected vascular flow. Isthmus: 0.2 cm The most suspicious thyroid nodule(s) (up to four) as below: Nodules: None There is an unchanged 3 mm solid hyperechoic nodule in the right thyroid lobe. IMPRESSION: No suspicious thyroid nodule. Hypervascular thyroid gland. Account Support Analyst: NOAH Transcribe Date/Time: Nov 24 2020 10:17A Dictated by : LIUDMILA BRISENO MD This examination was interpreted and the report reviewed and electronically signed by: LIUDMILA BRISENO MD on Nov 24 2020 10:19AM EST Normal [facility] BD DXA - AXIAL SKELETONon BD DXA - AXIAL SKELETON Final Report DATE OF EXAM: Oct 26 2020 5:01PM LDX 0804 - BD DXA - AXIAL SKELETON / PROCEDURE REASON: multiple diagnoses Physician Interpretation EXAM TITLE: BONE MINERAL DENSITOMETRY DATE: 10/26/2020. COMPARISON: None. CLINICAL INDICATION/HISTORY: Family history of osteoporosis. Prior total hysterectomy. TECHNIQUE: DXA [place] Antibodies-bCODE examination is performed on the lumbar spine and hip. FINDINGS: 1. L1-L4 BMD is 0.927 g/cm2 which is 79% of peak bone mass compared to young normals which is -2.1 standard deviations relative to the mean of young normals (T-score). According to the World Health Organization criteria, this would be classified as osteopenia. 2. Left hip BMD is 0.976 g/cm2 which is 97% of peak bone mass compared to young normals which is -0.2 standard deviations relative to the mean of young normals (T-score). According to the World Health Organization criteria, this would be classified as normal. 3. Left femoral neck BMD is 0.906 g/cm2 which is 87% of peak bone mass compared to young normals which is -0.9 standard deviations relative to the mean of young normals (T-score). According to the World Health Organization criteria, this would be classified as normal. IMPRESSION: Osteopenia lumbar spine. FRAX 10 YEAR PROBABILITY OF FRACTURE: Major Osteoporotic 5.9 % Hip 0.5 % Based on Femur Neck BMD FRAX is a trademark of the [employer] Metabolic Bone Disease, a WHO Collaborating [place]. This applies to men over 50 and to post menopausal women over 50 years of age. The 10 year probability of fracture may be lower than reported above if the patient has received treatment for osteopenia/osteoporosi s. It is also less accurate the more severe the osteoporosis. Major Osteoporotic Fracture: clinical spine, forearm, hip or shoulder. RELATIVE FRACTURE RISK TABLE NOTE: This table applies to post-menopausal females. T-score Fracture risk 0 average risk for normal 40 year old -1 2 times the normal -2 4 times the normal -3 8 times the normal etc. GENERAL RECOMMENDATIONS FOR PREVENTION OF BONE LOSS: 1. 1200 mg - 1500 mg calcium per day if no history of renal calculi for adults 50 years and over. 2. 800 - 1000 International Units of vitamin D3 per day if no history of renal calculi for adults 50 years and over. 3. Weight bearing exercise 4. Advise against smoking. If currently smoking, recommend cessation. 5. Avoid excessive use of caffeine, soft drinks, and alcoholic beverages. The National Osteoporosis Foundation recommends that treatment be considered for patients with T-scores of -2 or lower (-1 or lower if patient at high risk for accelerated bone loss). Account Support Analyst: NOAH Transcribe Date/Time: Oct 27 2020 7:08A Dictated by : GORGE ORTEGA MD This examination was interpreted and the report reviewed and electronically signed by: GORGE ORTEGA MD on Oct 27 2020 7:15AM EST Normal [facility] Total 25-OH Vitamin Don 06-18 Total 25-OH Vitamin D 73.7 ng/mL Normal 30.0-100.0 [facility] Comment on above: Performed By: #### 2 5VD1 #### [facility] [address] [place], [place] [address] Lipid Profile, [place] 07-05 Cholesterol [Mass/Vol] 201 mg/dL High 0-199 [facility] Comment on above: Result Comment: Tota l Cholesterol < 200 mg/dL, Desirable Total Cholesterol 200 to 239 mg/dL, Borderline high Total Cholesterol > 239 mg/dL, High Performed By: #### L LPF #### [place] [address] Cholesterol in HDL [Mass/Vol] 24 mg/dL Low [facility] Comment on above: Result Comment: Refe rence Range: HDL Cholesterol 40- 59 mg/dL, Acceptable HDL Cholesterol >59 mg/dL, High; Negative risk factor for coronary heart disease HDL Cholesterol <40 mg/dL, Low; Positive risk factor for coronary heart disease Performed By: #### L LPF #### [place] [address] Cholesterol in LDL [Mass/Vol] 107 mg/dL High 0-99 [facility] Comment on above: Result Comment: LDL Cholesterol < 100 mg/dL, Optimal LDL Cholesterol 100 to 129 mg/dL, Near optimal/above optimal LDL Cholesterol 130 to 159 mg/dL, Borderline high LDL Cholesterol 160 to 189 mg/dL, High LDL Cholesterol > 189 mg/dL, Very high Secondary prevention optimal LDL Cholesterol levels are recommended to be < 70 mg/dL Performed By: #### L LPF #### [address] [address] Cholesterol in LDL/Cholesterol in HDL [Mass ratio] 4.46 High 0.00-2.53 [facility] Comment on above: Performed By: #### L LPF #### [facility] [address] [place] [address] Cholesterol.total/Melissa sterol in HDL [Mass ratio] 8.38 {ratio} High 0.00-5.09 [facility] Comment on above: Performed By: #### L LPF #### [place] [address] Non-HDL Cholesterol 177 mg/dL High 0-129 [facility] Comment on above: Result Comment: Non HDL Cholesterol < 130 mg/dL, Optimal Non HDL Cholesterol 130 to 159 mg/dL, Near optimal/above optimal Non HDL Cholesterol 160 to 189 mg/dL, Borderline high Non HDL Cholesterol 190 to 219 mg/dL, High Non HDL Cholesterol > 219 mg/dL, Very high Secondary prevention optimal non HDL Cholesterol levels are recommended to be < 100 mg/dL Performed By: #### L LPF #### [place] [address] Triglyceride Blood 352 mg/dL High 0-149 [facility] Comment on above: Result Comment: Trig lycerides < 150 mg/dL, Normal Triglycerides 150 to 199 mg/dL, Borderline high Triglycerides 200 to 499 mg/dL, High Triglycerides > 499 mg/dL, Very high Performed By: #### L LPF #### [place] [address] VLDL Cholesterol 70 mg/dL High 0-29 [facility] Comment on above: Performed By: #### L LPF #### [place] [address] FASTING TIME 10 Hrs Normal [facility] Comment on above: Performed By: #### L LPF #### [place] [address] GC/Chlam Amp Genital/Rectal/ Oralon 12-25-2019 GC/Chlam Amp Genital/Rectal/Oral Test performed at [facility] Negative for Neisseria gonorrhoeae by amplification. Negative for Chlamydia trachomatis by amplification. Vagina Normal [facility] Comment on above: Performed By: #### 2 5VD1 #### [place] [address] Rapid Bact.Vaginosison 12-25 Rapid Bact.Vaginosis see below Normal Negative [facility] Comment on above: Result Comment: Nega tive for the presence of bacterial vaginosis. Performed By: #### R APBV #### [facility] [address] [place] [address] Rapid Trichomonas Agon 12-25 Rapid Trichomonas Ag see below Normal [facility] Comment on above: Result Comment: No T richomonas antigen present or the antigen level is below detection limit of the assay (2500 organisms/mL). Performed By: #### L RAPT #### [place] [address] Smear Fungalon 12-25-2019 Smear Fungal Test performed at [facility] +Few yeast seen Normal [facility] Comment on above: Performed By: #### S _FUN #### [place] [address] Hemoglobin A1Con 12-23-2019 HbA1c (Bld) [Mass fraction] 120 mg/dl Normal [facility] Comment on above: Performed By: #### 2 5VD1 #### [address] [address] HbA1c (Bld) [Mass fraction] 5.8 % Normal 4.5-6.2 [facility] Comment on above: Performed By: #### 2 5VD1 #### [place] [address] Comprehensive Panelon 2019 ALP [Catalytic activity/Vol] 76 U/L Normal 45-117 [facility] Comment on above: Performed By: #### P 14 #### [facility] [address] [place], [place] [address] Bilirubin [Mass/Vol] 0.4 mg/dL Normal 0.2-1.0 [facility] Comment on above: Performed By: #### P 14 #### [facility] [address] [place], [place] [address] Protein [Mass/Vol] 9.7 g/dL High 6.4-8.2 [facility] Comment on above: Performed By: #### P 14 #### [facility] [address] [place], [place] [address] ALT [Catalytic activity/Vol] 27 U/L Normal 12-78 [facility] Comment on above: Performed By: #### P 14 #### [facility] [address] [place], [place] [address] AST [Catalytic activity/Vol] 12 U/L Low 15-37 [facility] Comment on above: Performed By: #### P 14 #### [facility] [address] [place], [place] [address] Creatinine [Mass/Vol] 0.73 mg/dL Normal 0.51-0.95 [facility] Comment on above: Result Comment: Use of this assay is not recommended for patients undergoing treatment with phenindione, due to the potential for falsely depressed results. Performed By: #### P 14 #### [facility] [address] [place], [place] [address] Albumin [Mass/Vol] 4.1 g/dL Normal 3.4-5.0 [facility] Comment on above: Performed By: #### P 14 #### [facility] [address] [place], [place] [address] Anion gap [Moles/Vol] 10 mmol/L Normal 8-16 [facility] Comment on above: Performed By: #### P 14 #### [facility] [address] [place], [place] [address] Calcium [Mass/Vol] 9.4 mg/dL Normal 8.5-10.1 [facility] Comment on above: Performed By: #### P 14 #### [facility] [address] [place], [place] [address] CO2 [Moles/Vol] 27 mmol/L Normal 21-32 [facility] Comment on above: Performed By: #### P 14 #### [facility] [address] [place], [place] [address] Glucose [Mass/Vol] 83 mg/dL Normal 70-99 [facility] Comment on above: Performed By: #### P 14 #### [facility] [address] [place], [place] [address] Urea nitrogen [Mass/Vol] 6 mg/dL Low 7-18 [facility] Comment on above: Performed By: #### P 14 #### [facility] [address] [place], [place] [address] Chloride [Moles/Vol] 108 mmol/L High 98-107 [facility] Comment on above: Performed By: #### P 14 #### [facility] [address] [place], [place] [address] Potassium [Moles/Vol] 3.8 mmol/L Normal 3.5-5.1 [facility] Comment on above: Performed By: #### P 14 #### [facility] [address] [place], [place] [address] Sodium [Moles/Vol] 141 mmol/L Normal 136-145 [facility] Comment on above: Performed By: #### P 14 #### [facility] [address] [place], [place] [address] Hemogramon 12-22-2019 Erythrocyte distribution width (RBC) [Ratio] 14.3 % Normal 11.5-15.9 [facility] Comment on above: Performed By: #### 2 5VD1 #### [facility] [address] [place], [place] [address] Hematocrit (Bld) [Volume fraction] 45.4 % Normal 37.0-47.0 [facility] Comment on above: Performed By: #### 2 5VD1 #### [facility] [address] [place], [place] [address] Hemoglobin (Bld) [Mass/Vol] 14.4 g/dL Normal 12.0-16.0 [facility] Comment on above: Performed By: #### 2 5VD1 #### [facility] [address] [place], [place] [address] MCH (RBC) [Entitic mass] 30.5 pg Normal 27.0-31.0 [facility] Comment on above: Performed By: #### 2 5VD1 #### [facility] [address] [place], [place] [address] MCHC (RBC) [Mass/Vol] 31.7 % Low 32.0-36.0 [facility] Comment on above: Performed By: #### 2 5VD1 #### [facility] [address] [place], [place] [address] MCV (RBC) [Entitic vol] 96.2 fL Normal 81.0-99.0 [facility] Comment on above: Performed By: #### 2 5VD1 #### [facility] [address] [place], [place] [address] Platelet mean volume (Bld) [Entitic vol] 11.3 fL High 7.1-10.5 [facility] Comment on above: Performed By: #### 2 5VD1 #### [facility] [address] [place], [place] [address] Platelets (Bld) [#/Vol] 292 thou/cmm Normal 150-400 [facility] Comment on above: Performed By: #### 2 5VD1 #### [facility] [address] [place], [place] [address] RBC (Bld) [#/Vol] 4.72 mil/cmm Normal 4.20-5.40 [facility] Comment on above: Performed By: #### 2 5VD1 #### [facility] [address] [place], [place] [address] WBC (Bld) [#/Vol] 8.8 thou/cmm Normal 4.8-10.5 [facility] Comment on above: Performed By: #### 2 5VD1 #### [facility] [address] [place], [place] [address] Lipid Profileon 12-22-2019 Cholesterol [Mass/Vol] 202 mg/dL High 0-199 [facility] Comment on above: Performed By: #### 2 5VD1 #### [facility] [address] [place], [place] [address] Cholesterol in HDL [Mass/Vol] 22 mg/dL Normal >40 [facility] Comment on above: Performed By: #### 2 5VD1 #### [facility] [address] [place], [place] [address] Cholesterol in LDL [Mass/Vol] 117 mg/dL Normal 0-150 [facility] Comment on above: Performed By: #### 2 5VD1 #### [facility] [address] [place], [place] [address] Cholesterol.total/Melissa sterol in HDL [Mass ratio] 9.2 {ratio} High 1.8-5.3 [facility] Comment on above: Performed By: #### 2 5VD1 #### [facility] [address] [place], [place] [address] Triglyceride Blood 316 mg/dL High 0-149 [facility] Comment on above: Performed By: #### 2 5VD1 #### [facility] [address] [place] [id number] Risk Factor See Below Normal [facility] Comment on above: Result Comment: Card iac Risk Factor The CHD risk factor is based on the total Chol/HDL ratio. Other factors affect CHD risk such as hypertension, smoking, diabetes, severe obesity and premature CHD. Cardiac Risk Total Chol/HDL ratio Men Women 1/2 avg risk 3.4-4.9 3.3-6.3 Avg risk 5.0-9.5 6.4-7.0 2x avg risk 9.6-23.3 7.1-10.9 3x avg risk >23.4 >11.0 Performed By: #### 2 5VD1 #### [facility] [address] [place] [id number] MDRD GFRon 12-22-2019 GFR/1.73 sq M predicted among non-blacks MDRD (S/P/Bld) [Vol rate/Area] mL/min/{1.73_m2} Normal >60mL/min/1. 73m2 [facility] Comment on above: Result Comment: If t he patient is , multiply the result by 1.210. Performed By: #### G FR #### [facility] [address] [place] [id number] Surgical Tissue Examon 12-22 Surgical Tissue Exam Test performed at [place] [id number] NAME: SARAY SIMON REQUESTING: SARAY VILLEGAS MD FINAL DIAGNOSIS: A) STOMACH, ANTRUM, BIOPSY - REACTIVE GASTROPATHY WITH VERY MILD CHRONIC INFLAMMATION. NO HISTOLOGIC FEATURES OF HELICOBACTER PYLORI ARE IDENTIFIED. B) GASTROESOPHAGEAL JUNCTION, BIOPSIES - SQUAMOUS AND DETACHED FRAGMENTS OF GLANDULAR TISSUE WITH MILD CHRONIC INFLAMMATION. THERE IS NO EVIDENCE OF INTESTINAL METAPLASIA OR DYSPLASIA. OPERATIVE PROCEDURE: EGD with biopsies CLINICAL INFORMATION: Colon cancer screening, GERD (gastroesophageal reflux disease), tobacco abuse GROSS DESCRIPTION: A) Antrum of stomach biopsies Received in formalin labeled antrum are two irregular jason soft tissue fragments aggregating to 0.4 x 0.3 x 0.2 cm. The specimen is submitted entirely in cassette A. B) GE junction biopsies Received in formalin labeled GE junction biopsies are multiple irregular jason soft tissue fragments aggregating to 0.2 x 0.2 x 0.1 cm. The specimen is submitted entirely in cassette B. OLS:gil ORTIZ M.D. PATHOLOGIST (Electronic signature on file) Signed out: 12/25/2019 12:27 PRINTED: 12/25/2019 Page 1 of 1 Normal [facility] Comment on above: Performed By: #### 2 5VD1 #### [place] [id number] TSHon 12-22-2019 TSH Qn 2.17 uIU/mL Normal 0.34-4.82 [facility] Comment on above: Performed By: #### L TSH #### [place] [address] Total 25-OH Vitamin Don 02- Total 25-OH Vitamin D 17.1 ng/mL Low 30.0-100.0 [facility] Comment on above: Performed By: #### 2 5VD1 #### [place] [id number] Vital Signs Date Time Vital Sign Value Performing Clinician Facility 06-30-2025 14:25-0400 Body height 167.6 cm Liudmila Olivera APRN.FAST FOOD CASHIER Work Phone: [facility] 06-30-2025 14:25-0400 Body mass index (BMI) [Ratio] 33.25 kg/m2 Liudmila Olivera SPACE ENGINEER.FAST FOOD CASHIER Work Phone: [facility] 06-30-2025 14:25-0400 Body temperature 98.01 [degF] Liudmila Olivera SPACE ENGINEER.FAST FOOD CASHIER Work Phone: [facility] 06-30-2025 14:25-0400 Body weight 93.44 kg Liudmila Olivera SPACE ENGINEER.FAST FOOD CASHIER Work Phone: [facility] 06-30-2025 14:25-0400 Diastolic blood pressure 76 mm[Hg] Liudmila Olivera SPACE ENGINEER.FAST FOOD CASHIER Work Phone: [facility] 06-30-2025 14:25-0400 Heart rate 85 /min Liudmila Olivera SPACE ENGINEER.FAST FOOD CASHIER Work Phone: [facility] 06-30-2025 14:25-0400 SaO2% (BldA) [Mass fraction] 95 % Liudmila Olivera SPACE ENGINEER.FAST FOOD CASHIER Work Phone: [facility] 06-30-2025 14:25-0400 Systolic blood pressure 126 mm[Hg] Liudmila Olivera SPACE ENGINEER.FAST FOOD CASHIER Work Phone: [facility] 06-10-2025 14:52-0400 Body height 167.6 cm Rossana Queden SPACE ENGINEER.FAST FOOD CASHIER Work Phone: [facility] 06-10-2025 14:52-0400 Body mass index (BMI) [Ratio] 33.25 kg/m2 Rossana Queden SPACE ENGINEER.FAST FOOD CASHIER Work Phone: [facility] 06-10-2025 14:52-0400 Body temperature 98.29 [degF] Rossana Queden SPACE ENGINEER.FAST FOOD CASHIER Work Phone: [facility] 06-10-2025 14:52-0400 Body weight 93.44 kg Rossana Queden SPACE ENGINEER.FAST FOOD CASHIER Work Phone: [facility] 06-10-2025 14:52-0400 Diastolic blood pressure 70 mm[Hg] Rossana Queden SPACE ENGINEER.FAST FOOD CASHIER Work Phone: [facility] 06-10-2025 14:52-0400 Heart rate 84 /min Rossana Hernandez SPACE ENGINEER.FAST FOOD CASHIER Work Phone: [facility] 06-10-2025 14:52-0400 SaO2% (BldA) [Mass fraction] 98 % Rossana Hernandez SPACE ENGINEER.FAST FOOD CASHIER Work Phone: [facility] 06-10-2025 14:52-0400 Systolic blood pressure 114 mm[Hg] Rossana Hernandez SPACE ENGINEER.FAST FOOD CASHIER Work Phone: [facility] 06-02-2025 07:37-0400 Body mass index (BMI) [Ratio] 33.2 kg/m2 Liudmila Trill REMOTE ADVISOR-C Work Phone: [facility] 06-02-2025 07:37-0400 Body temperature 97.4 [degF] Liudmila Trill REMOTE ADVISOR-C Work Phone: [facility] 06-02-2025 07:37-0400 Body weight 93.44 kg Liudmila Trill REMOTE ADVISOR-C Work Phone: [facility] 06-02-2025 07:37-0400 Diastolic blood pressure 76 mm[Hg] Liudmila Trill REMOTE ADVISOR-C Work Phone: [facility] 06-02-2025 07:37-0400 Heart rate 88 /min Liudmila Trill REMOTE ADVISOR-C Work Phone: [facility] 06-02-2025 07:37-0400 Inhaled oxygen flow rate 2 L/min Liudmila Trill REMOTE ADVISOR-C Work Phone: [facility] 06-02-2025 07:37-0400 Respiratory rate 16 /min Liudmila Trill REMOTE ADVISOR-C Work Phone: [facility] 06-02-2025 07:37-0400 SaO2% (BldA) [Mass fraction] 96 % Liudmila Trill REMOTE ADVISOR-C Work Phone: [facility] 06-02-2025 07:37-0400 Systolic blood pressure 128 mm[Hg] Liudmila Olivera REMOTE ADVISOR-C Work Phone: [facility] 05-14-2025 10:13-0400 Body height 167.6 cm Liudmila Olivera SPACE ENGINEER.FAST FOOD CASHIER Work Phone: [facility] 05-14-2025 10:13-0400 Body mass index (BMI) [Ratio] 32.93 kg/m2 Liudmila Olivera SPACE ENGINEER.FAST FOOD CASHIER Work Phone: [facility] 05-14-2025 10:13-0400 Body temperature 98.2 [degF] Liudmila Olivera SPACE ENGINEER.FAST FOOD CASHIER Work Phone: [facility] 05-14-2025 10:13-0400 Body weight 92.53 kg Liudmila Olivera SPACE ENGINEER.FAST FOOD CASHIER Work Phone: [facility] 05-14-2025 10:13-0400 Diastolic blood pressure 78 mm[Hg] Liudmila Olivera SPACE ENGINEER.FAST FOOD CASHIER Work Phone: [facility] 05-14-2025 10:13-0400 Heart rate 87 /min Liudmila Olivera APRN.FAST FOOD CASHIER Work Phone: [facility] 05-14-2025 10:13-0400 SaO2% (BldA) [Mass fraction] 95 % Liudmila Olivera SPACE ENGINEER.FAST FOOD CASHIER Work Phone: [facility] 05-14-2025 10:13-0400 Systolic blood pressure 144 mm[Hg] Liudmila Olivera SPACE ENGINEER.FAST FOOD CASHIER Work Phone: [facility] 04-28-2025 14:20-0400 Diastolic blood pressure 82 mm[Hg] Saray Villegas MD Work Phone: [facility] 04-28-2025 14:20-0400 Heart rate 71 /min Saray Villegas MD Work Phone: [facility] 04-28-2025 14:20-0400 Respiratory rate 20 /min Saray Villegas MD Work Phone: [facility] 04-28-2025 14:20-0400 SaO2% (BldA) [Mass fraction] 96 % Saray Villegas MD Work Phone: [facility] 04-28-2025 14:20-0400 Systolic blood pressure 137 mm[Hg] Saray Villegas MD Work Phone: [facility] 04-28-2025 14:04-0400 Body temperature 97.3 [degF] Saray Villegas MD Work Phone: [facility] 04-28-2025 12:12-0400 Body height 167.6 cm Saray Villegas MD Work Phone: [facility] 04-28-2025 12:12-0400 Body mass index (BMI) [Ratio] 33.09 kg/m2 Saray Villegas MD Work Phone: [facility] 04-28-2025 12:12-0400 Body weight 92.99 kg Saray Villegas MD Work Phone: [facility] 04-13-2025 08:55-0400 Body height 167.6 cm [facility] Comment on above: pt reported 04-13-2025 08:55-0400 Body mass index (BMI) [Ratio] 33.09 kg/m2 [facility] 04-13-2025 08:55-0400 Body weight 92.99 kg [facility] Comment on above: pt reported 04-09-2025 14:02-0400 Body height 167.6 cm Liudmila Olivera APRN.FAST FOOD CASHIER Work Phone: [facility] 04-09-2025 14:02-0400 Body mass index (BMI) [Ratio] 33.09 kg/m2 Liudmila Olivera SPACE ENGINEER.FAST FOOD CASHIER Work Phone: [facility] 04-09-2025 14:02-0400 Body temperature 98.8 [degF] Liudmila Olivera APRN.FAST FOOD CASHIER Work Phone: [facility] 04-09-2025 14:02-0400 Body weight 92.99 kg Liudmila Trill SPACE ENGINEER.FAST FOOD CASHIER Work Phone: [facility] 04-09-2025 14:02-0400 Diastolic blood pressure 72 mm[Hg] Liudmila Olivera APRN.FAST FOOD CASHIER Work Phone: [facility] 04-09-2025 14:02-0400 Heart rate 97 /min Liudmila Olivera APRN.FAST FOOD CASHIER Work Phone: [facility] 04-09-2025 14:02-0400 SaO2% (BldA) [Mass fraction] 95 % Liudmila Olivera SPACE ENGINEER.FAST FOOD CASHIER Work Phone: [facility] 04-09-2025 14:02-0400 Systolic blood pressure 120 mm[Hg] Liudmila Olivera APRN.FAST FOOD CASHIER Work Phone: [facility] 04-09-2025 05:25-0400 Body height 167.64 cm Liudmila Trill REMOTE ADVISOR-C Work Phone: [facility] 04-09-2025 05:25-0400 Body mass index (BMI) [Ratio] 33.2 kg/m2 Liudmila Trill REMOTE ADVISOR-C Work Phone: [facility] 04-09-2025 05:25-0400 Body temperature 97.2 [degF] Liudmila Trill REMOTE ADVISOR-C Work Phone: [facility] 04-09-2025 05:25-0400 Body weight 93.44 kg Liudmila Trill REMOTE ADVISOR-C Work Phone: [facility] 04-09-2025 05:25-0400 Diastolic blood pressure 73 mm[Hg] Liudmila Trill REMOTE ADVISOR-C Work Phone: [facility] 04-09-2025 05:25-0400 Heart rate 91 /min Liudmila Trill REMOTE ADVISOR-C Work Phone: [facility] 04-09-2025 05:25-0400 Inhaled oxygen flow rate 2 L/min Liudmila Trill REMOTE ADVISOR-C Work Phone: [facility] 04-09-2025 05:25-0400 Respiratory rate 16 /min Liudmila Trill REMOTE ADVISOR-C Work Phone: [facility] 04-09-2025 05:25-0400 SaO2% (BldA) [Mass fraction] 95 % Liudmila Trill REMOTE ADVISOR-C Work Phone: [facility] 04-09-2025 05:25-0400 Systolic blood pressure 112 mm[Hg] Liudmila Trill REMOTE ADVISOR-C Work Phone: [facility] 03-19-2025 08:47-0400 Inhaled oxygen flow rate 3 L/min Liudmila Trill REMOTE ADVISOR-C Work Phone: [facility] 03-19-2025 08:00-0400 Body temperature 96.8 [degF] Liudmila Trill REMOTE ADVISOR-C Work Phone: [facility] 03-19-2025 08:00-0400 Diastolic blood pressure 69 mm[Hg] Liudmila Trill REMOTE ADVISOR-C Work Phone: [facility] 03-19-2025 08:00-0400 Heart rate 74 /min Liudmila Trill REMOTE ADVISOR-C Work Phone: [facility] 03-19-2025 08:00-0400 Respiratory rate 15 /min Liudmila Trill REMOTE ADVISOR-C Work Phone: [facility] 03-19-2025 08:00-0400 SaO2% (BldA) [Mass fraction] 95 % Liudmila Trill REMOTE ADVISOR-C Work Phone: [facility] 03-19-2025 08:00-0400 Systolic blood pressure 121 mm[Hg] Liudmila Trill REMOTE ADVISOR-C Work Phone: [facility] 03-18-2025 11:14-0400 Body mass index (BMI) [Ratio] 32.8 kg/m2 Liudmila Trill REMOTE ADVISOR-C Work Phone: [facility] 03-18-2025 11:14-0400 Body weight 92.1 kg Liudmila Trill REMOTE ADVISOR-C Work Phone: [facility] 03-17-2025 11:32-0400 Body temperature 98.2 [degF] Liudmila Trill REMOTE ADVISOR-C Work Phone: [facility] 03-17-2025 11:32-0400 Diastolic blood pressure 69 mm[Hg] Liudmila Trill REMOTE ADVISOR-C Work Phone: [facility] 03-17-2025 11:32-0400 Heart rate 96 /min Liudmila Trill REMOTE ADVISOR-C Work Phone: [facility] 03-17-2025 11:32-0400 Respiratory rate 21 /min Liudmila Trill REMOTE ADVISOR-C Work Phone: [facility] 03-17-2025 11:32-0400 SaO2% (BldA) [Mass fraction] 90 % Liudmila Trill REMOTE ADVISOR-C Work Phone: [facility] 03-17-2025 11:32-0400 Systolic blood pressure 123 mm[Hg] Liudmila Trill REMOTE ADVISOR-C Work Phone: [facility] 03-17-2025 11:00-0400 Inhaled oxygen flow rate 3 L/min Liudmila Trill REMOTE ADVISOR-C Work Phone: [facility] 03-17-2025 07:31-0400 Body height 167.64 cm Liudmila Trill REMOTE ADVISOR-C Work Phone: [facility] 03-17-2025 07:31-0400 Body mass index (BMI) [Ratio] 33.1 kg/m2 Liudmila Trill REMOTE ADVISOR-C Work Phone: [facility] 03-17-2025 07:31-0400 Body weight 93.2 kg Liudmila Trill REMOTE ADVISOR-C Work Phone: [facility] 03-15-2025 14:32-0400 Body mass index (BMI) [Ratio] 33.25 kg/m2 Saray Villegas MD Work Phone: [facility] 03-15-2025 14:32-0400 Body weight 93.44 kg Saray Villegas MD Work Phone: [facility] 03-15-2025 14:32-0400 Diastolic blood pressure 81 mm[Hg] Saray Villegas MD Work Phone: [facility] 03-15-2025 14:32-0400 Heart rate 105 /min Saray Villegas MD Work Phone: [facility] 03-15-2025 14:32-0400 Respiratory rate 16 /min Saray Villegas MD Work Phone: [facility] 03-15-2025 14:32-0400 SaO2% (BldA) [Mass fraction] 93 % Saray Villegas MD Work Phone: [facility] 03-15-2025 14:32-0400 Systolic blood pressure 153 mm[Hg] Saray Villegas MD Work Phone: [facility] 03-08-2025 10:25-0400 Body height 167.6 cm Liudmila Olivera SPACE ENGINEER.FAST FOOD CASHIER Work Phone: [facility] 03-08-2025 10:25-0400 Body mass index (BMI) [Ratio] 33.09 kg/m2 Liudmila Trihemant SPACE ENGINEER.FAST FOOD CASHIER Work Phone: [facility] 03-08-2025 10:25-0400 Body temperature 98.1 [degF] Liudmila Trihemant SPACE ENGINEER.FAST FOOD CASHIER Work Phone: [facility] 03-08-2025 10:25-0400 Body weight 92.99 kg Liudmila Trihemant SPACE ENGINEER.FAST FOOD CASHIER Work Phone: [facility] 03-08-2025 10:25-0400 Diastolic blood pressure 68 mm[Hg] Liudmila Trihemant SPACE ENGINEER.FAST FOOD CASHIER Work Phone: [facility] 03-08-2025 10:25-0400 Heart rate 104 /min Liudmila Trihemant SPACE ENGINEER.FAST FOOD CASHIER Work Phone: [facility] 03-08-2025 10:25-0400 Respiratory rate 16 /min Liudmila Olivera APRN.FAST FOOD CASHIER Work Phone: [facility] 03-08-2025 10:25-0400 SaO2% (BldA) [Mass fraction] 92 % Liudmila Olivera APRN.FAST FOOD CASHIER Work Phone: [facility] Comment on above: on 2 liter O2 03-08-2025 10:25-0400 Systolic blood pressure 122 mm[Hg] Liudmila Olivera APRN.FAST FOOD CASHIER Work Phone: [facility] 03-02-2025 07:31-0400 Body mass index (BMI) [Ratio] 32.3 kg/m2 Liudmila Trill REMOTE ADVISOR-C Work Phone: [facility] 03-02-2025 07:31-0400 Body temperature 97.4 [degF] Liudmila Trill REMOTE ADVISOR-C Work Phone: [facility] 03-02-2025 07:31-0400 Body weight 90.71 kg Liudmila Trill REMOTE ADVISOR-C Work Phone: [facility] 03-02-2025 07:31-0400 Diastolic blood pressure 81 mm[Hg] Liudmila Trill REMOTE ADVISOR-C Work Phone: [facility] 03-02-2025 07:31-0400 Heart rate 98 /min Liudmila Trill REMOTE ADVISOR-C Work Phone: [facility] 03-02-2025 07:31-0400 Inhaled oxygen flow rate 2 L/min Liudmila Trill REMOTE ADVISOR-C Work Phone: [facility] 03-02-2025 07:31-0400 Respiratory rate 20 /min Liudmila Trill REMOTE ADVISOR-C Work Phone: [facility] 03-02-2025 07:31-0400 SaO2% (BldA) [Mass fraction] 95 % Liudmila Trill REMOTE ADVISOR-C Work Phone: [facility] 03-02-2025 07:31-0400 Systolic blood pressure 138 mm[Hg] Liudmila Trill REMOTE ADVISOR-C Work Phone: [facility] 02-05-2025 14:32-0400 Body height 167.6 cm Jessi Bowser MD Work Phone: [facility] 02-05-2025 14:32-0400 Body mass index (BMI) [Ratio] 32.6 kg/m2 Jessi Bowser MD Work Phone: [facility] 02-05-2025 14:32-0400 Body weight 91.63 kg Jessi Bowser MD Work Phone: [facility] 02-05-2025 14:32-0400 Diastolic blood pressure 64 mm[Hg] Jessi Bowser MD Work Phone: [facility] 02-05-2025 14:32-0400 Heart rate 97 /min Jessi Bowser MD Work Phone: [facility] 02-05-2025 14:32-0400 SaO2% (BldA) [Mass fraction] 96 % Jessi Bowser MD Work Phone: [facility] Comment on above: Pt on 2L O2 [place] 02-05-2025 14:32-0400 Systolic blood pressure 118 mm[Hg] Jessi Bowser MD Work Phone: [facility] 12-07-2024 09:57-0500 Body height 167.6 cm Liudmila Olivera APRN.FAST FOOD CASHIER Work Phone: [facility] 12-07-2024 09:57-0500 Body mass index (BMI) [Ratio] 33.73 kg/m2 Liudmila Olivera APRN.FAST FOOD CASHIER Work Phone: [facility] 12-07-2024 09:57-0500 Body temperature 97.81 [degF] Liudmila Olivera APRN.FAST FOOD CASHIER Work Phone: [facility] 12-07-2024 09:57-0500 Body weight 94.8 kg Liudmila Olivera APRN.FAST FOOD CASHIER Work Phone: [facility] 12-07-2024 09:57-0500 Diastolic blood pressure 60 mm[Hg] Liudmila Trill SPACE ENGINEER.FAST FOOD CASHIER Work Phone: [facility] 12-07-2024 09:57-0500 Heart rate 97 /min Liudmila Trill SPACE ENGINEER.FAST FOOD CASHIER Work Phone: [facility] 12-07-2024 09:57-0500 SaO2% (BldA) [Mass fraction] 97 % Liudmila Trill SPACE ENGINEER.FAST FOOD CASHIER Work Phone: [facility] 12-07-2024 09:57-0500 Systolic blood pressure 126 mm[Hg] Liudmila Trill SPACE ENGINEER.FAST FOOD CASHIER Work Phone: [facility] 11-03-2024 14:29-0500 Body height 167.6 cm Liudmila Trihemant SPACE ENGINEER.FAST FOOD CASHIER Work Phone: [facility] 11-03-2024 14:29-0500 Body mass index (BMI) [Ratio] 34.22 kg/m2 Liudmila Trihemant SPACE ENGINEER.FAST FOOD CASHIER Work Phone: [facility] 11-03-2024 14:29-0500 Body temperature 98.1 [degF] Liudmila Trill SPACE ENGINEER.FAST FOOD CASHIER Work Phone: [facility] 11-03-2024 14:29-0500 Body weight 96.16 kg Liudmila Trill SPACE ENGINEER.FAST FOOD CASHIER Work Phone: [facility] 11-03-2024 14:29-0500 Diastolic blood pressure 74 mm[Hg] Liudmila Trill SPACE ENGINEER.FAST FOOD CASHIER Work Phone: [facility] 11-03-2024 14:29-0500 Heart rate 91 /min Liudmila Trill SPACE ENGINEER.FAST FOOD CASHIER Work Phone: [facility] 11-03-2024 14:29-0500 SaO2% (BldA) [Mass fraction] 96 % Liudmila Trill SPACE ENGINEER.FAST FOOD CASHIER Work Phone: [facility] 11-03-2024 14:29-0500 Systolic blood pressure 122 mm[Hg] Liudmila Trill SPACE ENGINEER.FAST FOOD CASHIER Work Phone: [facility] 09-15-2024 08:28-0400 Body height 167.6 cm Liudmila Olivera APRN.FAST FOOD CASHIER Work Phone: [facility] 09-15-2024 08:28-0400 Body mass index (BMI) [Ratio] 35.19 kg/m2 Liudmila Olivera SPACE ENGINEER.FAST FOOD CASHIER Work Phone: [facility] 09-15-2024 08:28-0400 Body temperature 98.1 [degF] Liudmila Olivera SPACE ENGINEER.FAST FOOD CASHIER Work Phone: [facility] 09-15-2024 08:28-0400 Body weight 98.88 kg Liudmila Olivera APRN.FAST FOOD CASHIER Work Phone: [facility] 09-15-2024 08:28-0400 Diastolic blood pressure 60 mm[Hg] Liudmila Olivera APRN.FAST FOOD CASHIER Work Phone: [facility] 09-15-2024 08:28-0400 Heart rate 101 /min Liudmila Olivera APRN.FAST FOOD CASHIER Work Phone: [facility] 09-15-2024 08:28-0400 SaO2% (BldA) [Mass fraction] 95 % Liudmila Olivera APRN.FAST FOOD CASHIER Work Phone: [facility] 09-15-2024 08:28-0400 Systolic blood pressure 120 mm[Hg] Liudmila Olivera APRN.FAST FOOD CASHIER Work Phone: [facility] 08-17-2024 14:48-0400 Body height 167.6 cm Liudmila Olivera SPACE ENGINEER.FAST FOOD CASHIER Work Phone: [facility] 08-17-2024 14:48-0400 Body mass index (BMI) [Ratio] 35.51 kg/m2 Liudmila Olivera SPACE ENGINEER.FAST FOOD CASHIER Work Phone: [facility] 08-17-2024 14:48-0400 Body temperature 98.2 [degF] Liudmila Olivera APRN.FAST FOOD CASHIER Work Phone: [facility] 08-17-2024 14:48-0400 Body weight 99.79 kg Liudmila Hoodhemant SPACE ENGINEER.FAST FOOD CASHIER Work Phone: [facility] 08-17-2024 14:48-0400 Diastolic blood pressure 68 mm[Hg] Liudmila Trihemant SPACE ENGINEER.FAST FOOD CASHIER Work Phone: [facility] 08-17-2024 14:48-0400 Heart rate 94 /min Liudmila Trill SPACE ENGINEER.FAST FOOD CASHIER Work Phone: [facility] 08-17-2024 14:48-0400 Respiratory rate 18 /min Liudmila Trill SPACE ENGINEER.FAST FOOD CASHIER Work Phone: [facility] 08-17-2024 14:48-0400 SaO2% (BldA) [Mass fraction] 94 % Liudmila Olivera SPACE ENGINEER.FAST FOOD CASHIER Work Phone: [facility] Comment on above: on 2 liters O2 08-17-2024 14:48-0400 Systolic blood pressure 118 mm[Hg] Liudmila Olivera SPACE ENGINEER.FAST FOOD CASHIER Work Phone: [facility] 08-05-2024 16:05-0400 Body height 167.6 cm Saray Villegas MD Work Phone: [facility] 08-05-2024 16:05-0400 Body mass index (BMI) [Ratio] 35.7 kg/m2 Saray Villegas MD Work Phone: [facility] 08-05-2024 16:05-0400 Body weight 100.34 kg Saray Villegas MD Work Phone: [facility] 08-05-2024 16:05-0400 Diastolic blood pressure 73 mm[Hg] Saray Villegas MD Work Phone: [facility] 08-05-2024 16:05-0400 Heart rate 69 /min Saray Villegas MD Work Phone: [facility] 08-05-2024 16:05-0400 Respiratory rate 20 /min Saray Villegas MD Work Phone: [facility] 08-05-2024 16:05-0400 Systolic blood pressure 112 mm[Hg] Saray Villegas MD Work Phone: [facility] 07-29-2024 16:44-0400 Body height 167.6 cm Liudmila Olivera SPACE ENGINEER.FAST FOOD CASHIER Work Phone: [facility] 07-29-2024 16:44-0400 Body mass index (BMI) [Ratio] 35.02 kg/m2 Liudmila Trihemant SPACE ENGINEER.FAST FOOD CASHIER Work Phone: [facility] 07-29-2024 16:44-0400 Body temperature 98.2 [degF] Liudmila Trill SPACE ENGINEER.FAST FOOD CASHIER Work Phone: [facility] 07-29-2024 16:44-0400 Body weight 98.43 kg Liudmila Trihemant SPACE ENGINEER.FAST FOOD CASHIER Work Phone: [facility] 07-29-2024 16:44-0400 Diastolic blood pressure 70 mm[Hg] Liudmila Trihemant SPACE ENGINEER.FAST FOOD CASHIER Work Phone: [facility] 07-29-2024 16:44-0400 Heart rate 95 /min Liudmila Olivera SPACE ENGINEER.FAST FOOD CASHIER Work Phone: [facility] 07-29-2024 16:44-0400 SaO2% (BldA) [Mass fraction] 94 % Liudmila Olivera SPACE ENGINEER.FAST FOOD CASHIER Work Phone: [facility] 07-29-2024 16:44-0400 Systolic blood pressure 128 mm[Hg] Liudmila Trihemant SPACE ENGINEER.FAST FOOD CASHIER Work Phone: [facility] 07-27-2024 09:51-0400 Body height 167.6 cm Liudmila Trihemant SPACE ENGINEER.FAST FOOD CASHIER Work Phone: [facility] 07-27-2024 09:51-0400 Body mass index (BMI) [Ratio] 35.02 kg/m2 Liudmila Trihemant SPACE ENGINEER.FAST FOOD CASHIER Work Phone: [facility] 07-27-2024 09:51-0400 Body temperature 98.49 [degF] Liudmila Trill SPACE ENGINEER.FAST FOOD CASHIER Work Phone: [facility] 07-27-2024 09:51-0400 Body weight 98.43 kg Liudmila Trill SPACE ENGINEER.FAST FOOD CASHIER Work Phone: [facility] 07-27-2024 09:51-0400 Diastolic blood pressure 66 mm[Hg] Liudmila Trill SPACE ENGINEER.FAST FOOD CASHIER Work Phone: [facility] 07-27-2024 09:51-0400 Heart rate 102 /min Liudmila Trill SPACE ENGINEER.FAST FOOD CASHIER Work Phone: [facility] 07-27-2024 09:51-0400 SaO2% (BldA) [Mass fraction] 94 % Liudmila Trill SPACE ENGINEER.FAST FOOD CASHIER Work Phone: [facility] 07-27-2024 09:51-0400 Systolic blood pressure 128 mm[Hg] Liudmila Trill SPACE ENGINEER.FAST FOOD CASHIER Work Phone: [facility] 07-14-2024 08:58-0400 Body height 167.6 cm Liudmila Trill SPACE ENGINEER.FAST FOOD CASHIER Work Phone: [facility] 07-14-2024 08:58-0400 Body mass index (BMI) [Ratio] 35.02 kg/m2 Liudmila Trill SPACE ENGINEER.FAST FOOD CASHIER Work Phone: [facility] 07-14-2024 08:58-0400 Body temperature 98.01 [degF] Liudmila Trill SPACE ENGINEER.FAST FOOD CASHIER Work Phone: [facility] 07-14-2024 08:58-0400 Body weight 98.43 kg Liudmila Trill SPACE ENGINEER.FAST FOOD CASHIER Work Phone: [facility] 07-14-2024 08:58-0400 Diastolic blood pressure 68 mm[Hg] Liudmila Trill SPACE ENGINEER.FAST FOOD CASHIER Work Phone: [facility] 07-14-2024 08:58-0400 Heart rate 92 /min Liudmila Trill SPACE ENGINEER.FAST FOOD CASHIER Work Phone: [facility] 07-14-2024 08:58-0400 Respiratory rate 18 /min Liudmila Trill SPACE ENGINEER.FAST FOOD CASHIER Work Phone: [facility] 07-14-2024 08:58-0400 SaO2% (BldA) [Mass fraction] 95 % Liudmila Trill SPACE ENGINEER.FAST FOOD CASHIER Work Phone: [facility] Comment on above: 2L 07-14-2024 08:58-0400 Systolic blood pressure 122 mm[Hg] Liudmila Olivera SPACE ENGINEER.FAST FOOD CASHIER Work Phone: [facility] 06-15-2024 08:58-0400 Body height 167.6 cm Rossana Queden SPACE ENGINEER.FAST FOOD CASHIER Work Phone: [facility] 06-15-2024 08:58-0400 Body mass index (BMI) [Ratio] 35.51 kg/m2 Rossana Queden SPACE ENGINEER.FAST FOOD CASHIER Work Phone: [facility] 06-15-2024 08:58-0400 Body temperature 98.2 [degF] Rossana Queden SPACE ENGINEER.FAST FOOD CASHIER Work Phone: [facility] 06-15-2024 08:58-0400 Body weight 99.79 kg Rossana Queden SPACE ENGINEER.[facility] Work Phone: [facility] 06-15-2024 08:58-0400 Diastolic blood pressure 66 mm[Hg] Rossana Queden SPACE ENGINEER.FAST FOOD CASHIER Work Phone: [facility] 06-15-2024 08:58-0400 Heart rate 98 /min Rossana Queden SPACE ENGINEER.FAST FOOD CASHIER Work Phone: [facility] 06-15-2024 08:58-0400 Respiratory rate 16 /min Rossana Queden SPACE ENGINEER.FAST FOOD CASHIER Work Phone: [facility] 06-15-2024 08:58-0400 SaO2% (BldA) [Mass fraction] 95 % Rossana Queden SPACE ENGINEER.FAST FOOD CASHIER Work Phone: [facility] Comment on above: 2 L 06-15-2024 08:58-0400 Systolic blood pressure 118 mm[Hg] Rossana Queden SPACE ENGINEER.FAST FOOD CASHIER Work Phone: [facility] 06-09-2024 10:40-0400 Body height 167.6 cm Jessi Bowser MD Work Phone: [facility] 06-09-2024 10:40-0400 Body mass index (BMI) [Ratio] 35.69 kg/m2 Jessi Bowser MD Work Phone: [facility] 06-09-2024 10:40-0400 Body weight 100.3 kg Jessi Bowser MD Work Phone: [facility] 06-09-2024 10:40-0400 Diastolic blood pressure 68 mm[Hg] Jessi Bowser MD Work Phone: [facility] 06-09-2024 10:40-0400 Heart rate 112 /min Jessi Bowser MD Work Phone: [facility] 06-09-2024 10:40-0400 SaO2% (BldA) [Mass fraction] 94 % Jessi Bowser MD Work Phone: [facility] Comment on above: 3L O2 [place] 06-09-2024 10:40-0400 Systolic blood pressure 132 mm[Hg] Jessi Bowser MD Work Phone: [facility] 05-12-2024 09:10-0400 Body height 167.6 cm Liudmila Olivera APRN.FAST FOOD CASHIER Work Phone: [facility] 05-12-2024 09:10-0400 Body mass index (BMI) [Ratio] 35.05 kg/m2 Liudmila Olivera SPACE ENGINEER.FAST FOOD CASHIER Work Phone: [facility] 05-12-2024 09:10-0400 Body temperature 98.4 [degF] Liudmila Olivera SPACE ENGINEER.FAST FOOD CASHIER Work Phone: [facility] 05-12-2024 09:10-0400 Body weight 98.43 kg Liudmila Olivera SPACE ENGINEER.FAST FOOD CASHIER Work Phone: [facility] 05-12-2024 09:10-0400 Diastolic blood pressure 60 mm[Hg] Liudmila Olivera SPACE ENGINEER.FAST FOOD CASHIER Work Phone: [facility] 05-12-2024 09:10-0400 Heart rate 106 /min Liudmila Olivera SPACE ENGINEER.FAST FOOD CASHIER Work Phone: [facility] 05-12-2024 09:10-0400 SaO2% (BldA) [Mass fraction] 96 % Liudmila Trihemant SPACE ENGINEER.FAST FOOD CASHIER Work Phone: [facility] 05-12-2024 09:10-0400 Systolic blood pressure 118 mm[Hg] Liudmila Trihemant SPACE ENGINEER.FAST FOOD CASHIER Work Phone: [facility] 04-03-2024 10:57-0400 Body height 167.6 cm Liudmila Olivera SPACE ENGINEER.FAST FOOD CASHIER Work Phone: [facility] 04-03-2024 10:57-0400 Body mass index (BMI) [Ratio] 35.21 kg/m2 Liudmila Olivera SPACE ENGINEER.FAST FOOD CASHIER Work Phone: [facility] 04-03-2024 10:57-0400 Body temperature 98.2 [degF] Liudmila Olivera SPACE ENGINEER.FAST FOOD CASHIER Work Phone: [facility] 04-03-2024 10:57-0400 Body weight 98.88 kg Liudmila Olivera SPACE ENGINEER.FAST FOOD CASHIER Work Phone: [facility] 04-03-2024 10:57-0400 Diastolic blood pressure 70 mm[Hg] Liudmila Trill SPACE ENGINEER.FAST FOOD CASHIER Work Phone: [facility] 04-03-2024 10:57-0400 Heart rate 105 /min Liudmila Trihemant SPACE ENGINEER.FAST FOOD CASHIER Work Phone: [facility] 04-03-2024 10:57-0400 SaO2% (BldA) [Mass fraction] 93 % Liudmila Trihemant SPACE ENGINEER.FAST FOOD CASHIER Work Phone: [facility] 04-03-2024 10:57-0400 Systolic blood pressure 128 mm[Hg] Liudmila Trill SPACE ENGINEER.FAST FOOD CASHIER Work Phone: [facility] 02-24-2024 12:37-0400 Body height 167.64 cm REMOTE ADVISOR-C Liudmila Trill REMOTE ADVISOR Work Phone: [facility] 02-24-2024 12:37-0400 Body weight 99.79 kg REMOTE ADVISOR-C Liudmila Trill REMOTE ADVISOR Work Phone: [facility] 02-24-2024 12:37-0400 Heart rate 95 /min REMOTE ADVISOR-C Liudmila Trill REMOTE ADVISOR Work Phone: [facility] 02-24-2024 12:37-0400 Inhaled oxygen flow rate 3 L/min REMOTE ADVISOR-C Liudmila Trill REMOTE ADVISOR Work Phone: [facility] 02-24-2024 12:37-0400 SaO2% (BldA) [Mass fraction] 93 % REMOTE ADVISOR-C Liudmila Trill REMOTE ADVISOR Work Phone: [facility] 01-21-2024 10:06-0500 Body height 167.6 cm Liudmila Trill SPACE ENGINEER.FAST FOOD CASHIER Work Phone: [facility] 01-21-2024 10:06-0500 Body temperature 98.1 [degF] Liudmila Trill SPACE ENGINEER.FAST FOOD CASHIER Work Phone: [facility] 01-21-2024 10:06-0500 Body weight 97.52 kg Liudmila Trill SPACE ENGINEER.FAST FOOD CASHIER Work Phone: [facility] 01-21-2024 10:06-0500 Diastolic blood pressure 70 mm[Hg] Liudmila Trill SPACE ENGINEER.FAST FOOD CASHIER Work Phone: [facility] 01-21-2024 10:06-0500 Heart rate 94 /min Liudmila Trill SPACE ENGINEER.FAST FOOD CASHIER Work Phone: [facility] 01-21-2024 10:06-0500 SaO2% (BldA) [Mass fraction] 95 % Liudmila Trill SPACE ENGINEER.FAST FOOD CASHIER Work Phone: [facility] 01-21-2024 10:06-0500 Systolic blood pressure 122 mm[Hg] Liudmila Trill SPACE ENGINEER.FAST FOOD CASHIER Work Phone: [facility] 01-03-2024 15:31-0500 Body height 167.6 cm Liudmila Trill SPACE ENGINEER.FAST FOOD CASHIER Work Phone: [facility] 01-03-2024 15:31-0500 Body temperature 98.49 [degF] Liudmila Trill SPACE ENGINEER.FAST FOOD CASHIER Work Phone: [facility] 01-03-2024 15:31-0500 Body weight 97.07 kg Liudmila Trill SPACE ENGINEER.FAST FOOD CASHIER Work Phone: [facility] 01-03-2024 15:31-0500 Diastolic blood pressure 70 mm[Hg] Liudmila Trill SPACE ENGINEER.FAST FOOD CASHIER Work Phone: [facility] 01-03-2024 15:31-0500 Heart rate 95 /min Liudmila Trill SPACE ENGINEER.FAST FOOD CASHIER Work Phone: [facility] 01-03-2024 15:31-0500 SaO2% (BldA) [Mass fraction] 97 % Liudmila Trill SPACE ENGINEER.FAST FOOD CASHIER Work Phone: [facility] 01-03-2024 15:31-0500 Systolic blood pressure 120 mm[Hg] Liudmila Trill SPACE ENGINEER.FAST FOOD CASHIER Work Phone: [facility] 12-27-2023 14:35-0500 Body height 167.6 cm Liudmila Trill SPACE ENGINEER.FAST FOOD CASHIER Work Phone: [facility] 12-27-2023 14:35-0500 Body temperature 98.01 [degF] Liudmila Trill SPACE ENGINEER.FAST FOOD CASHIER Work Phone: [facility] 12-27-2023 14:35-0500 Body weight 92.08 kg Liudmila Trill SPACE ENGINEER.FAST FOOD CASHIER Work Phone: [facility] 12-27-2023 14:35-0500 Diastolic blood pressure 78 mm[Hg] Liudmila Trill SPACE ENGINEER.FAST FOOD CASHIER Work Phone: [facility] 12-27-2023 14:35-0500 Heart rate 110 /min Liudmila Olivera SPACE ENGINEER.FAST FOOD CASHIER Work Phone: [facility] 12-27-2023 14:35-0500 SaO2% (BldA) [Mass fraction] 98 % Liudmilakierra Olivera SPACE ENGINEER.FAST FOOD CASHIER Work Phone: [facility] 12-27-2023 14:35-0500 Systolic blood pressure 128 mm[Hg] Liudmila Olivera SPACE ENGINEER.FAST FOOD CASHIER Work Phone: [facility] 12-12-2023 06:58-0500 Body mass index (BMI) [Ratio] 33.9 kg/m2 REMOTE ADVISOR-C Liudmila Trill REMOTE ADVISOR Work Phone: [facility] 12-12-2023 06:58-0500 Body temperature 95.1 [degF] REMOTE ADVISOR-C Liudmila Trill REMOTE ADVISOR Work Phone: [facility] 12-12-2023 06:58-0500 Body weight 95.25 kg REMOTE ADVISOR-C Liudmila Trill REMOTE ADVISOR Work Phone: [facility] 12-12-2023 06:58-0500 Diastolic blood pressure 87 mm[Hg] REMOTE ADVISOR-C Liudmila Trill REMOTE ADVISOR Work Phone: [facility] 12-12-2023 06:58-0500 Heart rate 95 /min REMOTE ADVISOR-C Liudmila Trill REMOTE ADVISOR Work Phone: [facility] 12-12-2023 06:58-0500 Inhaled oxygen flow rate 3 L/min REMOTE ADVISOR-C Liudmila Trill REMOTE ADVISOR Work Phone: [facility] 12-12-2023 06:58-0500 Respiratory rate 20 /min REMOTE ADVISOR-C Liudmila Trill REMOTE ADVISOR Work Phone: [facility] 12-12-2023 06:58-0500 SaO2% (BldA) [Mass fraction] 94 % REMOTE ADVISOR-C Liudmila Trill REMOTE ADVISOR Work Phone: [facility] 12-12-2023 06:58-0500 Systolic blood pressure 145 mm[Hg] REMOTE ADVISOR-C Liudmila Trill REMOTE ADVISOR Work Phone: [facility] 10-22-2023 07:40-0500 Body height 167.64 cm REMOTE ADVISOR-C Liudmila Trill REMOTE ADVISOR Work Phone: [facility] 10-22-2023 07:40-0500 Body mass index (BMI) [Ratio] 33 kg/m2 REMOTE ADVISOR-C Liudmila Trill REMOTE ADVISOR Work Phone: [facility] 10-22-2023 07:40-0500 Body temperature 97.5 [degF] REMOTE ADVISOR-C Liudmila Trill REMOTE ADVISOR Work Phone: [facility] 10-22-2023 07:40-0500 Body weight 92.75 kg REMOTE ADVISOR-C Liudmila Trill REMOTE ADVISOR Work Phone: [facility] 10-22-2023 07:40-0500 Diastolic blood pressure 86 mm[Hg] REMOTE ADVISOR-C Liudmila Trill REMOTE ADVISOR Work Phone: [facility] 10-22-2023 07:40-0500 Heart rate 100 /min REMOTE ADVISOR-C Liudmila Trill REMOTE ADVISOR Work Phone: [facility] 10-22-2023 07:40-0500 Inhaled oxygen flow rate 2 L/min REMOTE ADVISOR-C Liudmila Trill REMOTE ADVISOR Work Phone: [facility] 10-22-2023 07:40-0500 Respiratory rate 20 /min REMOTE ADVISOR-C Liudmila Trill REMOTE ADVISOR Work Phone: [facility] 10-22-2023 07:40-0500 SaO2% (BldA) [Mass fraction] 93 % REMOTE ADVISOR-C Liudmila Trill REMOTE ADVISOR Work Phone: [facility] 10-22-2023 07:40-0500 Systolic blood pressure 127 mm[Hg] REMOTE ADVISOR-C Liudmila Trill REMOTE ADVISOR Work Phone: [facility] 10-04-2023 15:30-0500 Body height 175.3 cm Liudmila Trill SPACE ENGINEER.FAST FOOD CASHIER Work Phone: [facility] 10-04-2023 15:30-0500 Body temperature 98.4 [degF] Liudmila Trill SPACE ENGINEER.FAST FOOD CASHIER Work Phone: [facility] 10-04-2023 15:30-0500 Body weight 92.99 kg Liudmila Trill SPACE ENGINEER.FAST FOOD CASHIER Work Phone: [facility] 10-04-2023 15:30-0500 Diastolic blood pressure 70 mm[Hg] Liudmila Trill SPACE ENGINEER.FAST FOOD CASHIER Work Phone: [facility] 10-04-2023 15:30-0500 Heart rate 81 /min Liudmila Trill SPACE ENGINEER.FAST FOOD CASHIER Work Phone: [facility] 10-04-2023 15:30-0500 SaO2% (BldA) [Mass fraction] 92 % Liudmila Trill SPACE ENGINEER.FAST FOOD CASHIER Work Phone: [facility] 10-04-2023 15:30-0500 Systolic blood pressure 128 mm[Hg] Liudmila Trill SPACE ENGINEER.FAST FOOD CASHIER Work Phone: [facility] 09-13-2023 14:33-0400 Body height 175.3 cm Liudmila Trill SPACE ENGINEER.FAST FOOD CASHIER Work Phone: [facility] 09-13-2023 14:33-0400 Body temperature 98.29 [degF] Liudmila Trill SPACE ENGINEER.FAST FOOD CASHIER Work Phone: [facility] 09-13-2023 14:33-0400 Body weight 89.81 kg Liudmila Trill SPACE ENGINEER.FAST FOOD CASHIER Work Phone: [facility] 09-13-2023 14:33-0400 Diastolic blood pressure 74 mm[Hg] Liudmila Trill SPACE ENGINEER.FAST FOOD CASHIER Work Phone: [facility] 09-13-2023 14:33-0400 Heart rate 89 /min Liudmila Trill SPACE ENGINEER.FAST FOOD CASHIER Work Phone: [facility] 09-13-2023 14:33-0400 Respiratory rate 18 /min Liudmila Olivera SPACE ENGINEER.FAST FOOD CASHIER Work Phone: [facility] 09-13-2023 14:33-0400 SaO2% (BldA) [Mass fraction] 94 % Liudmila Lori SPACE ENGINEER.FAST FOOD CASHIER Work Phone: [facility] 09-13-2023 14:33-0400 Systolic blood pressure 120 mm[Hg] Liudmila Olivera SPACE ENGINEER.FAST FOOD CASHIER Work Phone: [facility] 08-07-2023 07:42-0400 Body height 167.64 cm REMOTE ADVISOR-C Liudmila Trill REMOTE ADVISOR Work Phone: [facility] 08-07-2023 07:42-0400 Body mass index (BMI) [Ratio] 32.4 kg/m2 REMOTE ADVISOR-C Liudmila Trill REMOTE ADVISOR Work Phone: [facility] 08-07-2023 07:42-0400 Body temperature 96.5 [degF] REMOTE ADVISOR-C Liudmila Trill REMOTE ADVISOR Work Phone: [facility] 08-07-2023 07:42-0400 Body weight 91.17 kg REMOTE ADVISOR-C Liudmila Trill REMOTE ADVISOR Work Phone: [facility] 08-07-2023 07:42-0400 Diastolic blood pressure 56 mm[Hg] REMOTE ADVISOR-C Liudmila Trill REMOTE ADVISOR Work Phone: [facility] 08-07-2023 07:42-0400 Heart rate 88 /min REMOTE ADVISOR-C Liudmila Trill REMOTE ADVISOR Work Phone: [facility] 08-07-2023 07:42-0400 Inhaled oxygen flow rate 2 L/min REMOTE ADVISOR-C Liudmila Trill REMOTE ADVISOR Work Phone: [facility] 08-07-2023 07:42-0400 Respiratory rate 20 /min REMOTE ADVISOR-C Liudmila Trill REMOTE ADVISOR Work Phone: [facility] 08-07-2023 07:42-0400 SaO2% (BldA) [Mass fraction] 95 % REMOTE ADVISOR-C Liudmila Trill REMOTE ADVISOR Work Phone: [facility] 08-07-2023 07:42-0400 Systolic blood pressure 94 mm[Hg] REMOTE ADVISOR-C Liudmila Trill REMOTE ADVISOR Work Phone: [facility] 07-23-2023 14:02-0400 Body height 175.3 cm Liudmila Olivera SPACE ENGINEER.FAST FOOD CASHIER Work Phone: [facility] 07-23-2023 14:02-0400 Body temperature 98.29 [degF] Liudmila Olivera SPACE ENGINEER.FAST FOOD CASHIER Work Phone: [facility] 07-23-2023 14:02-0400 Body weight 93.44 kg Liudmila Olivera SPACE ENGINEER.FAST FOOD CASHIER Work Phone: [facility] 07-23-2023 14:02-0400 Diastolic blood pressure 68 mm[Hg] Liudmila Olivera SPACE ENGINEER.FAST FOOD CASHIER Work Phone: [facility] 07-23-2023 14:02-0400 Heart rate 97 /min Liudmila Olivera SPACE ENGINEER.FAST FOOD CASHIER Work Phone: [facility] 07-23-2023 14:02-0400 SaO2% (BldA) [Mass fraction] 95 % Liudmila Olivera SPACE ENGINEER.FAST FOOD CASHIER Work Phone: [facility] 07-23-2023 14:02-0400 Systolic blood pressure 122 mm[Hg] Liudmila Olivera SPACE ENGINEER.FAST FOOD CASHIER Work Phone: [facility] 06-30-2023 10:40-0400 Heart rate 79 /min REMOTE ADVISOR-C Liudmila Trill REMOTE ADVISOR Work Phone: [facility] 06-30-2023 10:40-0400 Inhaled oxygen flow rate 2 L/min REMOTE ADVISOR-C Liudmila Trill REMOTE ADVISOR Work Phone: [facility] 06-30-2023 10:40-0400 Respiratory rate 18 /min REMOTE ADVISOR-C Liudmila Trill REMOTE ADVISOR Work Phone: [facility] 06-30-2023 10:40-0400 SaO2% (BldA) [Mass fraction] 92 % REMOTE ADVISOR-C Liudmila Trill REMOTE ADVISOR Work Phone: [facility] 06-30-2023 07:36-0400 Body temperature 97.9 [degF] REMOTE ADVISOR-C Liudmila Trill REMOTE ADVISOR Work Phone: [facility] 06-30-2023 07:36-0400 Diastolic blood pressure 77 mm[Hg] REMOTE ADVISOR-C Liudmila Trill REMOTE ADVISOR Work Phone: [facility] 06-30-2023 07:36-0400 Systolic blood pressure 142 mm[Hg] REMOTE ADVISOR-C Liudmila Trill REMOTE ADVISOR Work Phone: [facility] 06-28-2023 21:50-0400 Inhaled oxygen concentration 40 % REMOTE ADVISOR-C Liudmila Trill REMOTE ADVISOR Work Phone: [facility] 06-27-2023 14:30-0400 Body height 167.64 cm REMOTE ADVISOR-C Liudmila Trill REMOTE ADVISOR Work Phone: [facility] 06-27-2023 14:30-0400 Body mass index (BMI) [Ratio] 33.8 kg/m2 REMOTE ADVISOR-C Liudmila Trill REMOTE ADVISOR Work Phone: [facility] 06-27-2023 14:30-0400 Body weight 95.2 kg REMOTE ADVISOR-C Liudmila Trill REMOTE ADVISOR Work Phone: [facility] 05-14-2023 13:55-0400 Body height 175.3 cm Liudmila Trill SPACE ENGINEER.FAST FOOD CASHIER Work Phone: [facility] 05-14-2023 13:55-0400 Body temperature 98.2 [degF] Liudmila Trill SPACE ENGINEER.FAST FOOD CASHIER Work Phone: [facility] 05-14-2023 13:55-0400 Body weight 98.88 kg Liudmila Trill SPACE ENGINEER.FAST FOOD CASHIER Work Phone: [facility] 05-14-2023 13:55-0400 Diastolic blood pressure 70 mm[Hg] Liudmila Trill SPACE ENGINEER.FAST FOOD CASHIER Work Phone: [facility] 05-14-2023 13:55-0400 Heart rate 86 /min Liudmila Olivera SPACE ENGINEER.FAST FOOD CASHIER Work Phone: [facility] 05-14-2023 13:55-0400 SaO2% (BldA) [Mass fraction] 93 % Liudmila Trihemant SPACE ENGINEER.FAST FOOD CASHIER Work Phone: [facility] 05-14-2023 13:55-0400 Systolic blood pressure 124 mm[Hg] Liudmila Olivera SPACE ENGINEER.FAST FOOD CASHIER Work Phone: [facility] 03-26-2023 08:23-0400 Body height 175.3 cm Saray Villegas MD Work Phone: [facility] 03-26-2023 08:23-0400 Body temperature 97.11 [degF] Saray Villegas MD Work Phone: [facility] 03-26-2023 08:23-0400 Body weight 99.7 kg Saray Villegas MD Work Phone: [facility] 03-26-2023 08:23-0400 Diastolic blood pressure 84 mm[Hg] Saray Villegas MD Work Phone: [facility] 03-26-2023 08:23-0400 Heart rate 89 /min Saray Villegas MD Work Phone: [facility] 03-26-2023 08:23-0400 SaO2% (BldA) [Mass fraction] 97 % Saray Villegas MD Work Phone: [facility] 03-26-2023 08:23-0400 Systolic blood pressure 126 mm[Hg] Saray Villegas MD Work Phone: [facility] 03-25-2023 14:57-0400 Body height 177.7 cm Liudmila Olivera SPACE ENGINEER.FAST FOOD CASHIER Work Phone: [facility] 03-25-2023 14:57-0400 Body temperature 97.9 [degF] Liudmila Trihemant SPACE ENGINEER.FAST FOOD CASHIER Work Phone: [facility] 03-25-2023 14:57-0400 Body weight 98.88 kg Liudmila Trill SPACE ENGINEER.FAST FOOD CASHIER Work Phone: [facility] 03-25-2023 14:57-0400 Diastolic blood pressure 62 mm[Hg] Liudmila Trill SPACE ENGINEER.FAST FOOD CASHIER Work Phone: [facility] 03-25-2023 14:57-0400 Heart rate 93 /min Liudmila Trill SPACE ENGINEER.FAST FOOD CASHIER Work Phone: [facility] 03-25-2023 14:57-0400 SaO2% (BldA) [Mass fraction] 94 % Liudmila Trill SPACE ENGINEER.FAST FOOD CASHIER Work Phone: [facility] 03-25-2023 14:57-0400 Systolic blood pressure 110 mm[Hg] Liudmila Trill SPACE ENGINEER.FAST FOOD CASHIER Work Phone: [facility] 01-16-2023 16:06-0500 Body height 177.7 cm Liudmila Trill SPACE ENGINEER.FAST FOOD CASHIER Work Phone: [facility] 01-16-2023 16:06-0500 Body temperature 98.49 [degF] Liudmila Trill SPACE ENGINEER.FAST FOOD CASHIER Work Phone: [facility] 01-16-2023 16:06-0500 Body weight 100.25 kg Liudmila Trill SPACE ENGINEER.FAST FOOD CASHIER Work Phone: [facility] 01-16-2023 16:06-0500 Diastolic blood pressure 70 mm[Hg] Liudmila Trill SPACE ENGINEER.FAST FOOD CASHIER Work Phone: [facility] 01-16-2023 16:06-0500 Heart rate 98 /min Liudmila Trill SPACE ENGINEER.FAST FOOD CASHIER Work Phone: [facility] 01-16-2023 16:06-0500 SaO2% (BldA) [Mass fraction] 93 % Liudmila Trill SPACE ENGINEER.FAST FOOD CASHIER Work Phone: [facility] 01-16-2023 16:06-0500 Systolic blood pressure 116 mm[Hg] Liudmila Trill SPACE ENGINEER.FAST FOOD CASHIER Work Phone: [facility] 12-31-2022 16:34-0500 Body height 177.7 cm Liudmila Trill SPACE ENGINEER.FAST FOOD CASHIER Work Phone: [facility] 12-31-2022 16:34-0500 Body temperature 98.49 [degF] Liudmila Trill SPACE ENGINEER.FAST FOOD CASHIER Work Phone: [facility] 12-31-2022 16:34-0500 Body weight 100.7 kg Liudmila Trill SPACE ENGINEER.FAST FOOD CASHIER Work Phone: [facility] 12-31-2022 16:34-0500 Diastolic blood pressure 70 mm[Hg] Liudmila Trill SPACE ENGINEER.FAST FOOD CASHIER Work Phone: [facility] 12-31-2022 16:34-0500 Heart rate 93 /min Liudmila Trill SPACE ENGINEER.FAST FOOD CASHIER Work Phone: [facility] [facility] 12-31-2022 16:34-0500 SaO2% (BldA) [Mass fraction] 96 % Liudmila Trill SPACE ENGINEER.FAST FOOD CASHIER Work Phone: [facility] 12-31-2022 16:34-0500 Systolic blood pressure 124 mm[Hg] Liudmila Trill SPACE ENGINEER.FAST FOOD CASHIER Work Phone: [facility] 11-27-2022 15:33-0500 Body height 177.7 cm Liudmila Trill SPACE ENGINEER.FAST FOOD CASHIER Work Phone: [facility] 11-27-2022 15:33-0500 Body temperature 98.29 [degF] Liudmila Trill SPACE ENGINEER.FAST FOOD CASHIER Work Phone: [facility] 11-27-2022 15:33-0500 Body weight 98.43 kg Liudmila Trill SPACE ENGINEER.FAST FOOD CASHIER Work Phone: [facility] 11-27-2022 15:33-0500 Diastolic blood pressure 70 mm[Hg] Liudmila Trill SPACE ENGINEER.FAST FOOD CASHIER Work Phone: [facility] 11-27-2022 15:33-0500 Heart rate 95 /min Liudmila Trill SPACE ENGINEER.FAST FOOD CASHIER Work Phone: [facility] 11-27-2022 15:33-0500 SaO2% (BldA) [Mass fraction] 96 % Liudmila Olivera SPACE ENGINEER.FAST FOOD CASHIER Work Phone: [facility] 11-27-2022 15:33-0500 Systolic blood pressure 128 mm[Hg] Liudmila Olivera SPACE ENGINEER.FAST FOOD CASHIER Work Phone: [facility] 10-18-2022 12:34-0500 Body height 167.64 cm REMOTE ADVISOR-C Liudmila Hoodll REMOTE ADVISOR Work Phone: [facility] Work Phone: 10-18-2022 12:34-0500 Body weight 95.7 kg REMOTE ADVISOR-C Liudmila Trill REMOTE ADVISOR Work Phone: [facility] Work Phone: 10-18-2022 12:34-0500 Heart rate 90 /min REMOTE ADVISOR-C Liudmila Trill REMOTE ADVISOR Work Phone: [facility] Work Phone: 10-18-2022 12:34-0500 Inhaled oxygen flow rate 2 L/min REMOTE ADVISOR-C Liudmila Trill REMOTE ADVISOR Work Phone: [facility] Work Phone: 10-18-2022 12:34-0500 SaO2% (BldA) [Mass fraction] 92 % REMOTE ADVISOR-C Liudmila Trill REMOTE ADVISOR Work Phone: [facility] Work Phone: 07-09-2022 07:07-0400 Diastolic blood pressure 79 mm[Hg] Phase [facility] 07-09-2022 07:07-0400 Heart rate 79 /min Phase [facility] 07-09-2022 07:07-0400 SaO2% (BldA) [Mass fraction] 92 % Phase [facility] 07-09-2022 07:07-0400 Systolic blood pressure 135 mm[Hg] Phase [facility] 05-25-2022 06:21-0400 Diastolic blood pressure 78 mm[Hg] Phase [facility] 05-25-2022 06:21-0400 Heart rate 87 /min Phase [facility] 05-25-2022 06:21-0400 SaO2% (BldA) [Mass fraction] 96 % Phase [facility] 05-25-2022 06:21-0400 Systolic blood pressure 135 mm[Hg] Phase [facility] 04-20-2022 07:53-0400 Body height 167.6 cm Liudmila Trill SPACE ENGINEER.FAST FOOD CASHIER Work Phone: [facility] 04-20-2022 07:53-0400 Body temperature 98.1 [degF] Liudmila Trill SPACE ENGINEER.FAST FOOD CASHIER Work Phone: [facility] 04-20-2022 07:53-0400 Body weight 91.17 kg Liudmila Trill SPACE ENGINEER.FAST FOOD CASHIER Work Phone: [facility] 04-20-2022 07:53-0400 Diastolic blood pressure 70 mm[Hg] Liudmila Trill SPACE ENGINEER.FAST FOOD CASHIER Work Phone: [facility] 04-20-2022 07:53-0400 Heart rate 102 /min Liudmila Trill SPACE ENGINEER.FAST FOOD CASHIER Work Phone: [facility] 04-20-2022 07:53-0400 SaO2% (BldA) [Mass fraction] 95 % Liudmila Trill SPACE ENGINEER.FAST FOOD CASHIER Work Phone: [facility] 04-20-2022 07:53-0400 Systolic blood pressure 110 mm[Hg] Liudmila Trill SPACE ENGINEER.FAST FOOD CASHIER Work Phone: [facility] 02-20-2022 08:02-0400 Body height 167.6 cm Liudmila Trill SPACE ENGINEER.FAST FOOD CASHIER Work Phone: [facility] 02-20-2022 08:02-0400 Body temperature 97.81 [degF] Liudmila Trill SPACE ENGINEER.FAST FOOD CASHIER Work Phone: [facility] 02-20-2022 08:02-0400 Body weight 89.81 kg Liudmila Trill SPACE ENGINEER.FAST FOOD CASHIER Work Phone: [facility] 02-20-2022 08:02-0400 Diastolic blood pressure 78 mm[Hg] Liudmila Olivera SPACE ENGINEER.FAST FOOD CASHIER Work Phone: [facility] 02-20-2022 08:02-0400 Heart rate 93 /min Liudmila Olivera APRN.FAST FOOD CASHIER Work Phone: [facility] 02-20-2022 08:02-0400 SaO2% (BldA) [Mass fraction] 98 % Liudmila Olivera SPACE ENGINEER.FAST FOOD CASHIER Work Phone: [facility] 02-20-2022 08:02-0400 Systolic blood pressure 128 mm[Hg] Liudmila Olivera SPACE ENGINEER.FAST FOOD CASHIER Work Phone: [facility] Encounters Encounter Date Encounter Type Care Provider Facility Start: 10-09-2025 ambulatory Liudmila Olivera REMOTE ADVISOR Facili ty:[facility] Start: 09-08-2025 End: 09-08-2025 ambulatory LIUDMILA C TRIHEMANT Facility:[facility] Start: 09-06-2025 End: 09-06-2025 ambulatory LIUDMILA C TRILL Facility:[facility] Start: 08-26-2025 End: 08-26-2025 ambulatory LIUDMILA C TRILL Facility:[facility] Start: 08-09-2025 End: 08-09-2025 ambulatory LIUDMILA C TRILL Facility:[facility] Start: 07-28-2025 End: 07-28-2025 ambulatory Liudmila C Trihemant SPACE ENGINEER.FAST FOOD CASHIER Work Phone: [facility] Comment on above: medication Start: 07-20-2025 End: 07-21-2025 Refill Liudmila Olivera APRN.FAST FOOD CASHIER Work Phone: [facility] Comment on above: Refill Request Start: 07-07-2025 ambulatory LIUDMILAKIERRA OLIVERA Facilit y:[facility] Start: 07-07-2025 End: 07-07-2025 Subsequent hospital visit by physician [facility] Comment on above: Right hip pain [M25. 551] Start: 07-06-2025 End: 07-06-2025 ambulatory LIUDMILA OLIVERA Facility:[facility] Start: 07-02-2025 End: 07-02-2025 Follow-up encounter Liudmila Olivera APRN.CNP Work Phone: [facility] Comment on above: Results Start: 07-01-2025 End: 07-01-2025 Telephone encounter Liudmila Olivera APRN.CNP Work Phone: [facility] Comment on above: Medication Problem Start: 06-30-2025 End: 06-30-2025 Subsequent hospital visit by physician [facility] Comment on above: Acute cough [R05.1] Start: 06-30-2025 End: 06-30-2025 Patient encounter procedure Liudmila Olivera APRN.CNP Work Phone: [facility] Comment on above: Lower respiratory in fection (Primary Dx); COPD with exacerbation (HCC); Acute cough; Chest pain, unspecified type; Dyspnea, unspecified type Start: 06-30-2025 End: 06-30-2025 ambulatory LIUDMILA OLIVERA Facility:[facility] Start: 06-24-2025 ambulatory LIUDMILA OLIVERA Facilit y:[facility] Start: 06-10-2025 End: 06-10-2025 Patient encounter procedure Rossana Hernandez APRN.FAST FOOD CASHIER Work Phone: [facility] Comment on above: Recurrent UTI (urina ry tract infection) (Primary Dx) Start: 06-10-2025 End: 06-10-2025 ambulatory ROSSANA HERNANDEZ Facility:[facility] Start: 06-02-2025 End: 06-02-2025 Patient encounter procedure REMOTE ADVISOR Anita Neves -[facility] Work Phone: Start: 06-02-2025 End: 06-02-2025 ambulatory Liudmila Olivera REMOTE ADVISOR-C Work Phone: -[facility] Start: 05-24-2025 End: 05-24-2025 ambulatory Liudmila Olivera REMOTE ADVISOR-C Work Phone: -Cat Scan [facility] Start: 05-24-2025 End: 05-24-2025 Patient encounter procedure REMOTE ADVISOR Anita Indioben -Cat Scan [facility] Work Phone: Start: 05-24-2025 End: 05-24-2025 ambulatory Anita Borjasrickyenio Facility:[facility] Start: 05-19-2025 End: 05-19-2025 Follow-up encounter Liudmila Olivera APRN.FAST FOOD CASHIER Work Phone: [facility] Comment on above: Results Start: 05-14-2025 End: 05-14-2025 Patient encounter status Liudmila Olivera APRN.FAST FOOD CASHIER Work Phone: [facility] Start: 05-14-2025 End: 05-14-2025 ambulatory LIUDMILA OLIVERA Facility:[facility] Start: 05-14-2025 Encounter for gynecological examination (general) (routine) without abnormal findings LIUDMILA OLIVERA [facility] Start: 05-14-2025 End: 05-14-2025 Patient encounter procedure Liudmila Olivera APRN.FAST FOOD CASHIER Work Phone: [facility] Comment on above: Medicare annual well ness visit, subsequent (Primary Dx); Encounter for screening mammogram for breast cancer; Screening for vaginal cancer; Encounter for gynecological examination without abnormal finding; Gastroesophageal reflux disease without esophagitis; Type 2 diabetes mellitus without complication, without long-term current use of insulin (HCC); Nausea; Epigastric pain; Labia irritation; Vaginal itching; DANNY (obstructive sleep apnea); Mixed stress and urge urinary incontinence Start: 05-05-2025 End: 05-05-2025 Admission to same day surgery center Rosalba Tai APRN.FAST FOOD CASHIER Work Phone: General Surgery Comment on above: GERD without esophag itis (Primary Dx); Hiatal hernia; Gassiness Start: 05-05-2025 End: 05-05-2025 Telemedicine consultation with patient Rosalba Barak ALCARAZ Work Phone: General Surgery Start: 05-05-2025 End: 05-05-2025 ambulatory ORSALBA TAI Facility:[facility] Start: 04-28-2025 ambulatory MIGUEL ANGEL Banuelos ty:[facility] Start: 04-28-2025 End: 04-28-2025 Subsequent hospital visit by physician Saray Villegas MD Work Phone: [facility] End[facility] Comment on above: History of colonic p olyps [Z86.0100] Start: 04-22-2025 Non-patient / Non-visit Dr. Jose F tenorio DO -[facility] Start: 04-22-2025 End: 04-22-2025 ambulatory Liudmila Olivera REMOTE ADVISOR-C Work Phone: [facility] Work Phone: Start: 04-22-2025 End: 04-22-2025 Patient encounter procedure REMOTE ADVISOR Anita Neves -Pulmonary Services/Neurology Work Phone: Start: 04-22-2025 End: 04-22-2025 ambulatory Anita Neves Facility:[facility] Start: 04-21-2025 End: 04-21-2025 Admission to same day surgery center [facility] Provider General Surgery Comment on above: Colonoscopy Instruct ions Start: 04-21-2025 End: 04-21-2025 E-mail encounter from caregiver [facility] Provider General Surgery Start: 04-13-2025 End: 04-13-2025 E-mail encounter from caregiver Steven Regalado APRN.CNP Work Phone: Pre Anesthesia Start: 04-13-2025 End: 04-13-2025 [facility] Start: 04-13-2025 End: 04-13-2025 Anesthesia consultation Steven Regalado APRN.CNP Work Phone: Pre Anesthesia Comment on above: Pre procedure instru ctions Aortic valve insuffi ciency, etiology of cardiac valve disease unspecified (Primary Dx); Centrilobular emphysema (HCC); Pulmonary emphysema, unspecified emphysema type (HCC); Chronic hypoxemic respiratory failure (HCC); Ectatic thoracic aorta; GERD without esophagitis; History of uterine cancer; Hypothyroidism, acquired; Mixed hyperlipidemia; Obesity, Class I, BMI 30-34.9; Primary hypertension; Smoker; Type 2 diabetes mellitus without complication, without long-term current use of insulin (HCC); Coronary artery calcification seen on CAT scan Start: 04-13-2025 End: 04-13-2025 ambulatory SARAY BENITEZTamara VILLEGAS Facility:[facility] Start: 04-09-2025 End: 04-09-2025 ambulatory LIUDMILA OLIVERA Facility:[facility] Start: 04-09-2025 End: 04-09-2025 Patient encounter procedure Liudmila Olivera APRN.FAST FOOD CASHIER Work Phone: [facility] Comment on above: Community acquired p neumonia, unspecified laterality (Primary Dx); Chronic respiratory failure with hypoxia (HCC); Pulmonary emphysema, unspecified emphysema type (HCC); Cervical radiculopathy; Radiculopathy due to lumbar intervertebral disc disorder; Psoriasis; Nicotine dependence, cigarettes, uncomplicated Start: 04-09-2025 End: 04-09-2025 ambulatory Anita Landon Indiorickyenio Facility:[facility] Start: 03-26-2025 End: 03-26-2025 Telephone encounter Liudmila Olivera APRN.CNP Work Phone: [facility] Start: 03-22-2025 End: 03-22-2025 Patient Outreach Liudmila Olivera APRN.FAST FOOD CASHIER Work Phone: [facility] Comment on above: Transition Of Care ( Hospital discharge from [place] 03/19/2025) Start: 03-19-2025 End: 03-19-2025 Telephone encounter Liudmila Olivera APRN.FAST FOOD CASHIER Work Phone: [facility] Comment on above: Electronic Communica tion (Caresource form ) Start: 03-19-2025 Non-patient / Non-visit Dr. Gonzalez [facility] Work Phone: Start: 03-19-2025 Non-patient / Non-visit Dr. Jose F tenorio DO [facility] Start: 03-18-2025 Non-patient / Non-visit [facility]. [facility] Work Phone: Start: 03-18-2025 End: 03-18-2025 ambulatory Liudmila Olivera REMOTE ADVISOR Facility:[facility] Start: 03-18-2025 End: 03-18-2025 Non-patient / Non-visit Dr. Franco Quach MD -[facility] Work Phone: Start: 03-17-2025 Non-patient / Non-visit Dr. Jose F tenorio DO -[facility] Start: 03-17-2025 ambulatory Kel Murphy Fac ility:[facility] Start: 03-17-2025 End: 03-19-2025 Evaluation and management of inpatient Dr. Kel Murphy DO -[facility] Work Phone: Start: 03-15-2025 End: 03-15-2025 Patient encounter procedure Saray Villegas MD Work Phone: General Surgery Comment on above: History of colonic p olyps; Encounter for colorectal cancer screening; GERD without esophagitis Start: 03-15-2025 End: 03-15-2025 ambulatory SARAY VILLEGAS Facility:[facility] Start: 03-08-2025 End: 03-08-2025 Patient encounter procedure Liudmila Olivera APRN.FAST FOOD CASHIER Work Phone: [facility] Comment on above: Type 2 diabetes suzette itus without complication, without long- term current use of insulin (HCC) (Primary Dx); Primary hypertension; Mixed hyperlipidemia; Mixed stress and urge urinary incontinence; Environmental allergies; History of colonic polyps; Encounter for colorectal cancer screening; GERD without esophagitis; Atrophic vaginitis Start: 03-08-2025 End: 03-08-2025 ambulatory LIUDMILA OLIVERA Facility:[facility] Start: 03-07-2025 End: 05-07-2025 Follow-up encounter Liudmila Olivera APRN.FAST FOOD CASHIER Work Phone: [facility] Start: 03-03-2025 End: 03-03-2025 ambulatory LIUDMILA OLIVERA Facility:[facility] Start: 03-02-2025 End: 03-03-2025 Follow-up encounter Liudmila Olivera APRN.FAST FOOD CASHIER Work Phone: [facility] Comment on above: Results Start: 03-02-2025 End: 03-02-2025 Patient encounter procedure REMOTE ADVISOR Anita Neves -[facility] Work Phone: Start: 03-02-2025 End: 03-02-2025 ambulatory Liudmila Olivera APRN.FAST FOOD CASHIER Work Phone: [facility] Comment on above: Blood work Start: 02-24-2025 End: 02-24-2025 Telephone encounter Liudmila Olivera APRN.FAST FOOD CASHIER Work Phone: [facility] Comment on above: Electronic Communica tion (Caresource form ) Start: 02-23-2025 End: 02-23-2025 ambulatory MIKE ABARCA Facility:[facility] Start: 02-05-2025 End: 02-05-2025 ambulatory JESSI BOWSER Facility:[facility] Start: 02-05-2025 End: 02-05-2025 Patient encounter procedure Jessi Bowser MD Work Phone: Cardiology Comment on above: Dilatation of thorac ic aorta (HCC) (Primary Dx) Start: 02-02-2025 End: 02-02-2025 ambulatory LIUDMILA OLIVERA Facility:[facility] Start: 02-02-2025 End: 04-04-2025 Follow-up encounter Liudmila Olivera APRN.FAST FOOD CASHIER Work Phone: [facility] Comment on above: Results Start: 02-02-2025 End: 02-02-2025 Telephone encounter Liudmila Olivera APRN.FAST FOOD CASHIER Work Phone: [facility] Comment on above: Patient Question Start: 01-25-2025 End: 01-26-2025 Refill Liudmila Olivera APRN.FAST FOOD CASHIER Work Phone: [facility] Comment on above: Refill Request Start: 01-18-2025 End: 01-18-2025 ambulatory Liudmila Olivera APRN.FAST FOOD CASHIER Work Phone: [facility] Comment on above: 90 day supply Start: 01-04-2025 End: 01-04-2025 Refill Liudmila Olivera APRN.CNP Work Phone: [facility] Comment on above: Refill Request Start: 01-01-2025 End: 01-01-2025 ambulatory Liudmila Olivera APRN.CNP Work Phone: [facility] Comment on above: Covid 19 Start: 12-23-2024 End: 12-23-2024 Telephone encounter Liudmila Olivera APRN.CNP Work Phone: [facility] Comment on above: Electronic Communica tion (Carsource form ) Start: 12-15-2024 End: 12-16-2024 ambulatory Jessi Bowser MD Work Phone: Cardiology Comment on above: Medication Start: 12-09-2024 End: 12-10-2024 Telephone encounter Liudmila Olivera APRN.CNP Work Phone: [facility] Comment on above: Results (CXR) Start: 12-07-2024 End: 12-07-2024 Subsequent hospital visit by physician [facility] Comment on above: Right-sided chest pa in [R07.9] Start: 12-07-2024 End: 12-07-2024 Patient encounter procedure Liudmila Olivera APRN.CNP Work Phone: [facility] Comment on above: Right-sided chest pa in (Primary Dx); Dyspnea, unspecified type; Upper respiratory tract infection, unspecified type; Acute cough; Sacroiliitis, not elsewhere classified (HCC); Chronic hypoxemic respiratory failure (HCC); Centrilobular emphysema (HCC); Ascending aorta dilatation (HCC); Type 2 diabetes mellitus without complication, without long-term current use of insulin (HCC); Mixed stress and urge urinary incontinence Start: 12-07-2024 End: 12-07-2024 ambulatory Liudmila Olivera APRN.CNP Work Phone: [facility] Comment on above: Xray Start: 11-20-2024 End: 11-20-2024 Telephone encounter Liudmila Olivera APRN.FAST FOOD CASHIER Work Phone: [facility] Comment on above: Electronic Communica tion (Incontinence items ) Start: 11-10-2024 End: 11-10-2024 ambulatory Liudmila Olivera APRN.FAST FOOD CASHIER Work Phone: [facility] Comment on above: Antibiotics Start: 11-03-2024 End: 11-03-2024 Patient encounter procedure Liudmila Olivera APRN.FAST FOOD CASHIER Work Phone: [facility] Comment on above: Cellulitis of great toe, right (Primary Dx) Start: 11-03-2024 End: 11-03-2024 ambulatory LIUDMILA OLIVERA Facility:[facility] Start: 11-02-2024 End: 11-02-2024 ambulatory Liudmila Olivera REMOTE ADVISOR Facility:[facility] Start: 10-20-2024 End: 10-20-2024 Refill Liudmila Olivera APRN.FAST FOOD CASHIER Work Phone: [facility] Comment on above: Refill Request Start: 10-06-2024 End: 10-06-2024 [facility] Start: 10-05-2024 End: 10-05-2024 Telephone encounter Liudmila Olivera APRN.FAST FOOD CASHIER Work Phone: [facility] Comment on above: Electronic Communica tion (Caresource form ) Start: 09-30-2024 End: 10-01-2024 Refill Liudmila Olivera APRN.FAST FOOD CASHIER Work Phone: [facility] Comment on above: Refill Request Start: 09-15-2024 End: 09-15-2024 Patient encounter procedure Liudmila Olivera APRN.FAST FOOD CASHIER Work Phone: [facility] Comment on above: Type 2 diabetes suzette itus without complication, without long- term current use of insulin (HCC) (Primary Dx); Primary hypertension; Mixed hyperlipidemia; Hypothyroidism, acquired; Centrilobular emphysema (HCC) Start: 09-15-2024 End: 09-15-2024 ambulatory LIUDMILA OLIVERA Facility:[facility] Start: 09-11-2024 End: 09-11-2024 Telephone encounter Liudmila Olivera APRN.FAST FOOD CASHIER Work Phone: [facility] Comment on above: Results Start: 09-11-2024 End: 09-11-2024 [facility] Start: 09-09-2024 End: 09-10-2024 ambulatory Jasmine Stephanie [facility] Comment on above: Population Health Na vigation Outreach ([place] Attributed Member - Care Gap Chart Review/) Start: 08-24-2024 End: 08-24-2024 Patient encounter procedure Saray Villegas MD Work Phone: General Surgery Comment on above: Status post incision and drainage (Primary Dx) Start: 08-24-2024 End: 08-24-2024 ambulatory SARAY VILLEGAS Facility:[facility] Start: 08-18-2024 End: 08-18-2024 E-mail encounter from caregiver Jessi Bowser MD Work Phone: Cardiology Start: 08-18-2024 End: 08-18-2024 Patient encounter procedure Jessi Bowser MD Work Phone: Cardiology Comment on above: Appointment Start: 08-17-2024 End: 08-17-2024 Patient encounter procedure Liudmila Olivera APRN.FAST FOOD CASHIER Work Phone: [facility] Comment on above: Cellulitis of right groin (Primary Dx) Start: 08-11-2024 End: 08-11-2024 ambulatory SARAY VILLEGAS Facility:[facility] Start: 08-11-2024 End: 08-11-2024 Patient encounter procedure Saray Villegas MD Work Phone: General Surgery Comment on above: Status post incision and drainage (Primary Dx) Start: 08-10-2024 End: 08-24-2024 Telephone encounter Liudmila Olivera APRN.FAST FOOD CASHIER Work Phone: [facility] Comment on above: Patient Question (Wo und has pus) Start: 08-09-2024 End: 08-10-2024 Refill Liudmila Olivera APRN.FAST FOOD CASHIER Work Phone: [facility] Comment on above: Refill Request Start: 08-07-2024 End: 08-07-2024 ambulatory SARAY VILLEGAS Facility:[facility] Start: 08-06-2024 End: 08-06-2024 Admission to same day surgery center Nurse Kelly [facility] Work Phone: General Surgery Comment on above: Abscess Surgery Info rmation Start: 08-06-2024 End: 08-06-2024 E-mail encounter from caregiver Nurse Kelly [facility] Work Phone: General Surgery Start: 08-06-2024 End: 08-06-2024 ambulatory LIUDMILA OLIVERA Facility:[facility] Start: 08-05-2024 End: 08-05-2024 ambulatory SARAY VILLEGAS Facility:[facility] Start: 08-05-2024 End: 08-05-2024 Patient encounter procedure Saray Villegas MD Work Phone: General Surgery Comment on above: Abscess of groin, ri ght (Primary Dx) Start: 07-31-2024 End: 07-31-2024 ambulatory Liudmila Olivera APRN.FAST FOOD CASHIER Work Phone: [facility] Comment on above: Terbinafine Start: 07-29-2024 End: 07-29-2024 Patient encounter procedure Liudmila Olivera APRN.FAST FOOD CASHIER Work Phone: [facility] Comment on above: Cellulitis of right groin (Primary Dx); Abscess, vulva; Onychomycosis Start: 07-28-2024 End: 07-28-2024 Telephone encounter Liudmila Olivera APRN.FAST FOOD CASHIER Work Phone: [facility] Comment on above: Hospital F/U Start: 07-27-2024 End: 07-27-2024 Patient encounter procedure Liudmila Olivera APRN.FAST FOOD CASHIER Work Phone: [facility] Comment on above: Abscess, vulva (Prim adamaris Dx) Start: 07-24-2024 End: 07-24-2024 Refill Liudmila Olivera APRN.FAST FOOD CASHIER Work Phone: [facility] Comment on above: Refill Request Start: 07-21-2024 End: 07-22-2024 Refill Liudmila Olivera APRN.FAST FOOD CASHIER Work Phone: [facility] Comment on above: Refill Request Start: 07-15-2024 End: 07-15-2024 ambulatory [facility] Start: 07-15-2024 End: 07-15-2024 Nutrition therapy [facility] Comment on above: new Dx DM Start: 07-14-2024 End: 07-14-2024 Patient encounter procedure Liudmila Olivera APRN.FAST FOOD CASHIER Work Phone: [facility] Comment on above: Newly diagnosed diab etes (HCC) (Primary Dx); Nail abnormality Start: 06-17-2024 Telephone encounter Liudmila Olivera APRN.FAST FOOD CASHIER Work Phone: [facility] Comment on above: Results Start: 06-15-2024 End: 06-15-2024 Patient encounter procedure Rossana Hernandez APRN.FAST FOOD CASHIER Work Phone: [facility] Comment on above: Dysuria (Primary Dx) ; Acute UTI; Glucose found in urine on examination; Newly diagnosed diabetes (HCC) Start: 06-09-2024 End: 06-09-2024 ambulatory JESSI BOWSER Facility:[facility] Start: 06-09-2024 End: 06-09-2024 Patient encounter procedure Jessi Bowser MD Work Phone: Cardiology Comment on above: Ascending aorta dila tation (HCC) (Primary Dx) Start: 06-08-2024 Telephone encounter Liudmila Olivera APRN.FAST FOOD CASHIER Work Phone: [facility] Comment on above: Results Start: 05-25-2024 Telephone encounter Liudmila Oilvera APRN.FAST FOOD CASHIER Work Phone: [facility] Comment on above: Results Start: 05-22-2024 Documentation procedure Mammography Coordinator ORRTANNA ANCILLARY AREA NOT LISTED Start: 05-22-2024 Letter encounter Mammography Coordin ator ORRTANNA ANCILLARY AREA NOT LISTED Start: 05-20-2024 End: 05-20-2024 Subsequent hospital visit by physician Mammo/Bone D[facility] Start: 05-18-2024 Telephone encounter Liudmila Olivera APRN.CNP Work Phone: [facility] Comment on above: Lab Orders Start: 05-12-2024 End: 05-12-2024 Patient encounter procedure Liudmila Olivera APRN.CNP Work Phone: [facility] Comment on above: Welcome to Medicare preventive visit (Primary Dx); Encounter for immunization; Osteopenia of lumbar spine; Postmenopausal; Breast cancer screening by mammogram; History of uterine cancer Start: 05-12-2024 End: 05-12-2024 Patient encounter status Liudmila Olivera APRN.CNP Work Phone: [facility] Work Phone: Start: 04-09-2024 ambulatory Liudmila hsieh APRN.CNP Work Phone: [facility] Comment on above: Cimetidine Start: 04-07-2024 ambulatory Caitlyn Ray [facility] Comment on above: Allied Health Visit (SPC) Start: 04-03-2024 End: 04-03-2024 Patient encounter procedure Liudmila Olivera APRN.CNP Work Phone: [facility] Comment on above: Primary hypertension (Primary Dx); GERD without esophagitis; Chronic chest pain Start: 03-23-2024 Telephone encounter Liudmila Olivera APRN.CNP Work Phone: [facility] Comment on above: Results (TSH) Start: 03-18-2024 Telephone encounter Liudmila Olivera APRN.CNP Work Phone: [facility] Comment on above: Reminder To Have Lab s Drawn Start: 03-17-2024 Refill Liudmila C Tril l SPACE ENGINEER.FAST FOOD CASHIER Work Phone: [facility] Comment on above: Refill Request Start: 03-17-2024 Telephone encounter Liudmila Bowen Trill SPACE ENGINEER.FAST FOOD CASHIER Work Phone: [facility] Comment on above: Results Refill Request Start: 02-27-2024 ambulatory Liudmila C Tril l SPACE ENGINEER.FAST FOOD CASHIER Work Phone: [facility] Comment on above: Psoriasis Start: 02-24-2024 ambulatory Liudmila C Tril l SPACE ENGINEER.FAST FOOD CASHIER Work Phone: [facility] Comment on above: Lasix Start: 02-24-2024 Patient encounter procedure REMOTE ADVISOR-C Liudmila Olivera REMOTE ADVISOR Work Phone: [facility]-Pulmonary Services/Neurology Work Phone: Start: 02-20-2024 End: 02-20-2024 ambulatory REMOTE ADVISOR-C Liudmila Olivera REMOTE ADVISOR Work Phone: [facility] Work Phone: Start: 02-20-2024 End: 02-20-2024 Patient encounter procedure REMOTE ADVISOR-C Liudmila Olivera REMOTE ADVISOR Work Phone: [facility]-Pulmonary Services/Neurology Work Phone: Start: 01-27-2024 Telephone encounter Fariba Chino JORDIN [facility] Comment on above: Electronic Communica tion (Medical supplies leila.) Start: 01-22-2024 ambulatory Liudmila C Tril l SPACE ENGINEER.FAST FOOD CASHIER Work Phone: [facility] Comment on above: [facility] Start: 01-21-2024 End: 01-21-2024 Patient encounter procedure Liudmila C Trill SPACE ENGINEER.FAST FOOD CASHIER Work Phone: [facility] Comment on above: Mixed hyperlipidemia (Primary Dx); Hypothyroidism, acquired; Dyslipidemia; Mixed stress and urge urinary incontinence Start: 01-20-2024 Refill Liudmila C Tril l SPACE ENGINEER.FAST FOOD CASHIER Work Phone: [facility] Comment on above: Refill Request Start: 01-19-2024 Refill Liudmila hsieh SPACE ENGINEER.FAST FOOD CASHIER Work Phone: [facility] Comment on above: Refill Request Start: 01-06-2024 Refill Rossana Diaz jose SPACE ENGINEER.FAST FOOD CASHIER Work Phone: [facility] Comment on above: Refill Request Start: 01-06-2024 Telephone encounter Liudmila Olivera APRN.FAST FOOD CASHIER Work Phone: [facility] Comment on above: Electronic Communica tion (Incontinent supplies ) Start: 01-03-2024 End: 01-03-2024 Patient encounter procedure Liudmila Olivera APRN.FAST FOOD CASHIER Work Phone: [facility] Comment on above: Sore throat (Primary Dx); Tonsillitis Start: 12-27-2023 End: 12-27-2023 Patient encounter procedure Liudmila Olivera APRN.FAST FOOD CASHIER Work Phone: [facility] Comment on above: Left flank pain (Marzena fariba Dx); Generalized abdominal pain; Recurrent UTI (urinary tract infection); Difficulty urinating; Sacroiliitis, not elsewhere classified (HCC); Chronic hypoxemic respiratory failure (HCC); Centrilobular emphysema (HCC); Ectatic thoracic aorta (HCC) Start: 12-12-2023 End: 12-12-2023 Patient encounter procedure FLY-Jessi Olivera REMOTE ADVISOR Work Phone: [facility]-Pulmonary Medicine [facility] Work Phone: Start: 12-05-2023 ambulatory Jessi mitchell MD Work Phone: Cardiology Comment on above: Echo Start: 10-29-2023 ambulatory Annette LOUIS Deputy Chief Executive Start: 10-25-2023 Telephone encounter Liudmila Olivera APRN.FAST FOOD CASHIER Work Phone: [facility] Comment on above: Patient Update Start: 10-22-2023 End: 10-22-2023 ambulatory REMOTE ADVISOR-C Liudmila Olivera REMOTE ADVISOR Work Phone: [facility] Work Phone: Start: 10-22-2023 End: 10-22-2023 Patient encounter procedure REMOTE ADVISOR-C Liudmila Olivera REMOTE ADVISOR Work Phone: [facility]-Laboratory, Specimen Work Phone: Start: 10-22-2023 End: 10-22-2023 Patient encounter procedure REMOTE ADVISOR-C Liudmila Olivera REMOTE ADVISOR Work Phone: [facility]-Pulmonary Medicine [facility] Work Phone: Start: 10-04-2023 End: 10-04-2023 Patient encounter procedure Liudmila Olivera SPACE ENGINEER.FAST FOOD CASHIER Work Phone: [facility] Comment on above: COPD with exacerbati on (HCC) (Primary Dx) Start: 10-03-2023 End: 10-03-2023 ambulatory REMOTE ADVISOR-C Liudmila Olivera REMOTE ADVISOR Work Phone: [facility] Work Phone: Start: 10-03-2023 End: 10-03-2023 Patient encounter procedure REMOTE ADVISOR-C Liudmila Olivera REMOTE ADVISOR Work Phone: [facility]-Cat [facility] Work Phone: Start: 09-13-2023 End: 09-13-2023 Patient encounter procedure Liudmila Olivera SPACE ENGINEER.FAST FOOD CASHIER Work Phone: [facility] Comment on above: Acute non-recurrent maxillary sinusitis (Primary Dx); COPD with exacerbation (HCC) Start: 09-11-2023 Refill Liudmila Hoodl l SPACE ENGINEER.FAST FOOD CASHIER Work Phone: [facility] Comment on above: Refill Request Start: 08-07-2023 End: 08-07-2023 Patient encounter procedure REMOTE ADVISOR-C Liudmila Olivera REMOTE ADVISOR Work Phone: [facility]-Pulmonary Medicine [facility] Work Phone: Start: 08-02-2023 Telephone encounter Liudmila Olivera SPACE ENGINEER.FAST FOOD CASHIER Work Phone: [facility] Comment on above: Results Start: 07-31-2023 ambulatory Liudmila hsieh SPACE ENGINEER.FAST FOOD CASHIER Work Phone: [facility] Comment on above: Keflex Start: 07-30-2023 Telephone encounter Liudmila Olivera SPACE ENGINEER.FAST FOOD CASHIER Work Phone: [facility] Comment on above: Lab Orders Start: 07-23-2023 End: 07-23-2023 Patient encounter procedure Liudmila Olivera SPACE ENGINEER.FAST FOOD CASHIER Work Phone: [facility] Comment on above: COPD with exacerbati on (HCC) (Primary Dx); Smoker; Restless leg syndrome; Chest pain, unspecified type; Bilateral leg edema; Ectatic thoracic aorta (HCC); Aortic valve insufficiency, etiology of cardiac valve disease unspecified; Chronic constipation Start: 07-04-2023 ambulatory Liudmila hsieh SPACE ENGINEER.FAST FOOD CASHIER Work Phone: [facility] Comment on above: Rollator Start: 07-01-2023 Patient Outreach Allyson Boo [facility] Comment on above: Transition Of Care ( [facility] discharge 06/30/2023 TCM encounter ) Start: 07-01-2023 Non-patient / Non-visit REMOTE ADVISOR-C K ristin Trill REMOTE ADVISOR Work Phone: [facility] Work Phone: Start: 06-30-2023 Non-patient / Non-visit REMOTE ADVISOR-C K ristin Trill REMOTE ADVISOR Work Phone: [facility] Work Phone: Start: 06-30-2023 Non-patient / Non-visit REMOTE ADVISOR-C K ristin Trill REMOTE ADVISOR Work Phone: [facility] Start: 06-29-2023 Non-patient / Non-visit REMOTE ADVISOR-C K ristin Trill REMOTE ADVISOR Work Phone: [facility] Work Phone: Start: 06-29-2023 Non-patient / Non-visit REMOTE ADVISOR-C K ristin Trill REMOTE ADVISOR Work Phone: [facility] Start: 06-28-2023 Non-patient / Non-visit REMOTE ADVISOR-C K ristin Trill REMOTE ADVISOR Work Phone: [facility] Work Phone: Start: 06-28-2023 Non-patient / Non-visit REMOTE ADVISOR-C K ristin Trill REMOTE ADVISOR Work Phone: [facility] Start: 06-27-2023 Non-patient / Non-visit REMOTE ADVISOR-C K ristin Trill REMOTE ADVISOR Work Phone: [facility] Work Phone: Start: 06-27-2023 End: 06-30-2023 Evaluation and management of inpatient REMOTE ADVISOR-C Liudmila Trill REMOTE ADVISOR Work Phone: [facility]-Progressive Care Unit Work Phone: Start: 05-14-2023 End: 05-14-2023 Patient encounter procedure Liudmila C Trill SPACE ENGINEER.FAST FOOD CASHIER Work Phone: [facility] Comment on above: Chest pain, unspecif ied type (Primary Dx); COPD with exacerbation (HCC) Start: 05-07-2023 Refill Liudmila C Tril l SPACE ENGINEER.FAST FOOD CASHIER Work Phone: [facility] Comment on above: Refill Request Start: 05-03-2023 ambulatory Liudmila C Tril l SPACE ENGINEER.FAST FOOD CASHIER Work Phone: [facility] Start: 03-28-2023 Telephone encounter Saray Sarmiento MD Work Phone: General Surgery Comment on above: Medication Problem Start: 03-26-2023 End: 03-26-2023 Patient encounter procedure Saray Vlilegas MD Work Phone: General Surgery Comment on above: Abscess of labia Start: 03-25-2023 End: 03-25-2023 Patient encounter procedure Liudmila C Trill SPACE ENGINEER.FAST FOOD CASHIER Work Phone: [facility] Comment on above: Abscess of labia (Pr imary Dx) Start: 03-19-2023 ambulatory Liudmila C Tril l SPACE ENGINEER.FAST FOOD CASHIER Work Phone: [facility] Comment on above: Boil Start: 03-12-2023 Refill Liudmila C Tril l SPACE ENGINEER.FAST FOOD CASHIER Work Phone: [facility] Comment on above: Refill Request Start: 03-06-2023 Telephone encounter Liudmila C Trill SPACE ENGINEER.FAST FOOD CASHIER Work Phone: [facility] Comment on above: Results Start: 03-05-2023 Documentation procedure Mammography Coordinator [facility] Start: 03-05-2023 Letter encounter Mammography Coordin [facility] ANCILLARY AREA NOT LISTED Start: 02-19-2023 ambulatory Liudmila C Tril l SPACE ENGINEER.FAST FOOD CASHIER Work Phone: [facility] Comment on above: Meter Maintenance Person Start: 02-19-2023 Refill Liudmila C Tril l SPACE ENGINEER.FAST FOOD CASHIER Work Phone: [facility] Comment on above: Refill Request Start: 01-23-2023 Telephone encounter Liudmila C Trill SPACE ENGINEER.FAST FOOD CASHIER Work Phone: [facility] Comment on above: Results Start: 01-16-2023 End: 01-16-2023 Patient encounter procedure Liudmila C Trill SPACE ENGINEER.FAST FOOD CASHIER Work Phone: [facility] Comment on above: Hypothyroidism, acqu ired (Primary Dx); GERD without esophagitis; Yeast dermatitis; Encounter for screening mammogram for breast cancer; Multiple thyroid nodules Start: 01-14-2023 Refill Liudmila C Tril l SPACE ENGINEER.FAST FOOD CASHIER Work Phone: [facility] Comment on above: Refill Request Start: 12-31-2022 End: 12-31-2022 Patient encounter procedure Liudmila Bowen Trill SPACE ENGINEER.FAST FOOD CASHIER Work Phone: [facility] Comment on above: Upper respiratory tr act infection, unspecified type (Primary Dx); Sore throat; COPD with exacerbation (HCC) Start: 12-31-2022 Telephone encounter Liudmila Olivera SPACE ENGINEER.FAST FOOD CASHIER Work Phone: [facility] Comment on above: Sore Throat Start: 11-27-2022 End: 11-27-2022 Patient encounter procedure Liudmila Olivera SPACE ENGINEER.FAST FOOD CASHIER Work Phone: [facility] Comment on above: Yeast dermatitis (Pr imary Dx); Acute non-recurrent maxillary sinusitis; Ectatic thoracic aorta (HCC); Centrilobular emphysema (HCC); Pulmonary fibrosis (HCC); Chronic hypoxemic respiratory failure (HCC) Start: 11-20-2022 Telephone encounter Fariba Chino JORDIN [facility] Comment on above: Incontinence Start: 11-14-2022 Refill Liudmila C Tril l SPACE ENGINEER.FAST FOOD CASHIER Work Phone: [facility] Comment on above: Refill Request Start: 11-06-2022 Refill Liudmila C Tril l SPACE ENGINEER.FAST FOOD CASHIER Work Phone: [facility] Comment on above: Refill Request Start: 10-20-2022 Non-patient / Non-visit REMOTE ADVISOR-C Nick Olivera REMOTE ADVISOR Work Phone: [facility] Start: 10-19-2022 Non-patient / Non-visit REMOTE ADVISOR-C Nick Olivera REMOTE ADVISOR Work Phone: [facility] Start: 10-19-2022 End: 10-19-2022 ambulatory REMOTE ADVISOR-C Liudmila Olivera REMOTE ADVISOR Work Phone: [facility] Work Phone: Start: 10-19-2022 End: 10-19-2022 Patient encounter procedure REMOTE ADVISOR-C Liudmila Olivera REMOTE ADVISOR Work Phone: [facility]-Pulmonary Services/Neurology Start: 10-18-2022 End: 10-18-2022 ambulatory REMOTE ADVISORBella Olivera REMOTE ADVISOR Work Phone: [facility] Work Phone: Start: 10-18-2022 End: 10-18-2022 Patient encounter procedure REMOTE ADVISORBella Olivera REMOTE ADVISOR Work Phone: [facility]-Pulmonary Services/Neurology Start: 10-01-2022 End: 10-01-2022 ambulatory [facility] Work Phone: Start: 10-01-2022 End: 10-01-2022 Patient encounter procedure [facility]-Cat Scan, [facility] Start: 10-01-2022 End: 10-01-2022 Patient encounter procedure Phase 3 [facility] Comment on above: Chronic obstructive pulmonary disease, unspecified COPD type (HCC) [J44.9 (ICD-10-CM)] (Primary Dx) Start: 09-24-2022 End: 09-24-2022 Patient encounter procedure Phase 3 [facility] Comment on above: Chronic obstructive pulmonary disease, unspecified COPD type (HCC) [J44.9 (ICD-10-CM)] (Primary Dx) Start: 09-22-2022 Refill Liudmila hsieh APRN.CNP Work Phone: [facility] Comment on above: Refill Request Start: 09-21-2022 End: 09-21-2022 Patient encounter procedure Phase 3 [facility] Comment on above: Chronic obstructive pulmonary disease, unspecified COPD type (HCC) [J44.9 (ICD-10-CM)] (Primary Dx) Start: 09-17-2022 End: 09-17-2022 Patient encounter procedure Phase 3 [facility] Comment on above: Chronic obstructive pulmonary disease, unspecified COPD type (HCC) [J44.9 (ICD-10-CM)] (Primary Dx) Start: 09-14-2022 End: 09-14-2022 Patient encounter procedure Phase 3 [facility] Comment on above: Chronic obstructive pulmonary disease, unspecified COPD type (HCC) [J44.9 (ICD-10-CM)] (Primary Dx) Start: 09-10-2022 End: 09-10-2022 Patient encounter procedure Phase 3 [facility] Comment on above: Chronic obstructive pulmonary disease, unspecified COPD type (HCC) [J44.9 (ICD-10-CM)] (Primary Dx) Start: 09-09-2022 Refill Liudmila C Tril l SPACE ENGINEER.FAST FOOD CASHIER Work Phone: [facility] Comment on above: Refill Request Start: 09-07-2022 ambulatory Liudmila C Tril l SPACE ENGINEER.FAST FOOD CASHIER Work Phone: [facility] Comment on above: Nystatin Start: 09-07-2022 End: 09-07-2022 Patient encounter procedure Phase 3 [facility] Comment on above: Chronic obstructive pulmonary disease, unspecified COPD type (HCC) [J44.9 (ICD-10-CM)] (Primary Dx) Start: 08-31-2022 End: 08-31-2022 Patient encounter procedure Phase 3 [facility] Comment on above: Chronic obstructive pulmonary disease, unspecified COPD type (HCC) [J44.9 (ICD-10-CM)] (Primary Dx) Start: 08-29-2022 ambulatory Liudmila C Tril l SPACE ENGINEER.FAST FOOD CASHIER Work Phone: [facility] Comment on above: Pain management Start: 08-27-2022 Refill Liudmila C Tril l SPACE ENGINEER.FAST FOOD CASHIER Work Phone: [facility] Comment on above: Refill Request Start: 08-27-2022 End: 08-27-2022 Patient encounter procedure Phase 3 [facility] Comment on above: Chronic obstructive pulmonary disease, unspecified COPD type (HCC) (Primary Dx) Start: 08-24-2022 End: 08-24-2022 Patient encounter procedure Phase 3 [facility] Comment on above: Chronic obstructive pulmonary disease, unspecified COPD type (HCC) [J44.9 (ICD-10-CM)] (Primary Dx) Start: 08-20-2022 End: 08-20-2022 Patient encounter procedure Phase 3 [facility] Comment on above: Chronic obstructive pulmonary disease, unspecified COPD type (HCC) [J44.9 (ICD-10-CM)] (Primary Dx) Start: 08-03-2022 Telephone encounter Liudmila Olivera APRN.HIMANSHU Work Phone: [facility] Comment on above: Results Start: 08-02-2022 ambulatory Steven Osorioenba um SPACE ENGINEER.FAST FOOD CASHIER Work Phone: Pulmonary Medicine Start: 07-30-2022 End: 07-30-2022 Subsequent hospital visit by physician [facility] Comment on above: Upper back pain [M54 .9] Start: 07-16-2022 Refill Liudmila hsieh APRN.HIMANSHU Work Phone: [facility] Comment on above: Refill Request Start: 07-16-2022 End: 07-16-2022 Patient encounter procedure Phase 3 [facility] Comment on above: Chronic obstructive pulmonary disease, unspecified COPD type (HCC) [J44.9 (ICD-10-CM)] (Primary Dx) Start: 07-12-2022 End: 07-12-2022 Subsequent hospital visit by physician Mri [facility] (1.5t) [facility] Comment on above: cervical spondylosis Start: 07-09-2022 End: 07-09-2022 Patient encounter procedure Phase 3 [facility] Comment on above: Chronic obstructive pulmonary disease, unspecified COPD type (HCC) [J44.9 (ICD-10-CM)] (Primary Dx) Start: 07-02-2022 End: 07-02-2022 Patient encounter procedure Phase 3 [facility] Comment on above: Chronic obstructive pulmonary disease, unspecified COPD type (HCC) [J44.9 (ICD-10-CM)] (Primary Dx) Start: 06-25-2022 End: 06-25-2022 Patient encounter procedure Phase 3 [facility] Comment on above: Chronic obstructive pulmonary disease, unspecified COPD type (HCC) [J44.9 (ICD-10-CM)] (Primary Dx) Start: 06-22-2022 Telephone encounter Liudmila Olivera APRN.CNP Work Phone: [facility] Comment on above: Orders Start: 06-18-2022 End: 06-18-2022 Patient encounter procedure Phase 3 [facility] Comment on above: Chronic obstructive pulmonary disease, unspecified COPD type (HCC) Start: 06-15-2022 End: 06-15-2022 Patient encounter procedure Phase 3 [facility] Comment on above: Chronic obstructive pulmonary disease, unspecified COPD type (HCC) Start: 06-11-2022 End: 06-11-2022 Patient encounter procedure Phase 3 [facility] Comment on above: Chronic obstructive pulmonary disease, unspecified COPD type (HCC) Start: 06-08-2022 ambulatory Liudmila hsieh APRN.CNP Work Phone: [facility] Comment on above: swelling Start: 06-04-2022 End: 06-04-2022 Patient encounter procedure Phase 3 [facility] Comment on above: Chronic obstructive pulmonary disease, unspecified COPD type (HCC) Start: 05-30-2022 Refill Liudmila hsieh APRN.CNP Work Phone: [facility] Comment on above: Refill Request Start: 05-25-2022 End: 05-25-2022 Patient encounter procedure Phase 3 [facility] Comment on above: Chronic obstructive pulmonary disease, unspecified COPD type (HCC) Start: 05-18-2022 End: 05-18-2022 Patient encounter procedure Phase 3 [facility] Comment on above: Hx of CABG Start: 05-16-2022 Refill Liudmila hsieh APRN.CNP Work Phone: [facility] Comment on above: Refill Request Start: 05-14-2022 End: 05-14-2022 Patient encounter procedure Phase 3 [facility] Comment on above: Chronic obstructive pulmonary disease, unspecified COPD type (HCC) Start: 05-11-2022 Telephone encounter Liudmila Olivera APRN.CNP Work Phone: [facility] Comment on above: Orders Start: 05-11-2022 End: 05-11-2022 Patient encounter procedure Phase 3 [facility] Comment on above: Chronic obstructive pulmonary disease, unspecified COPD type (HCC) Start: 05-09-2022 Refill Liudmila hsieh APRN.CNP Work Phone: [facility] Comment on above: Refill Request Start: 05-07-2022 End: 05-07-2022 Patient encounter procedure Phase 3 [facility] Comment on above: Chronic obstructive pulmonary disease, unspecified COPD type (HCC) Start: 05-04-2022 End: 05-04-2022 Patient encounter procedure Phase 3 [facility] Comment on above: Chronic obstructive pulmonary disease, unspecified COPD type (HCC) Start: 04-30-2022 End: 04-30-2022 Patient encounter procedure Phase 3 [facility] Comment on above: Chronic obstructive pulmonary disease, unspecified COPD type (HCC) Start: 04-27-2022 End: 04-27-2022 Patient encounter procedure Phase 3 [facility] Comment on above: Chronic obstructive pulmonary disease, unspecified COPD type (HCC) Start: 04-26-2022 Telephone encounter Liudmila Olivera APRN.CNP Work Phone: [facility] Comment on above: Patient Question Start: 04-24-2022 Telephone encounter Liudmila Olivera APRN.CNP Work Phone: [facility] Comment on above: Results Start: 04-20-2022 End: 04-20-2022 Patient encounter procedure Phase 3 [facility] Comment on above: Chronic obstructive pulmonary disease, unspecified COPD type (HCC) Primary hypertension (Primary Dx); Mixed hyperlipidemia; Mixed stress and urge urinary incontinence; Cigarette smoker; Yeast dermatitis; Anxiety; Centrilobular emphysema (HCC); Pulmonary fibrosis (HCC); Chronic hypoxemic respiratory failure (HCC); GERD without esophagitis; Hypothyroidism, acquired; Vitamin D deficiency; Urinary frequency Start: 04-13-2022 End: 04-13-2022 Patient encounter procedure Phase 3 [facility] Comment on above: Chronic bronchitis, unspecified chronic bronchitis type (HCC) Start: 04-09-2022 ambulatory Liudmila hsieh APRN.FAST FOOD CASHIER Work Phone: [facility] Comment on above: Cimetidine Start: 04-09-2022 End: 04-09-2022 Patient encounter procedure Phase 3 [facility] Comment on above: Chronic obstructive pulmonary disease, unspecified COPD type (HCC) Start: 04-06-2022 End: 04-06-2022 Patient encounter procedure Phase 3 [facility] Comment on above: Chronic obstructive pulmonary disease, unspecified COPD type (HCC) Start: 04-02-2022 End: 04-02-2022 Patient encounter procedure Phase 3 [facility] Comment on above: Chronic obstructive pulmonary disease, unspecified COPD type (HCC) Start: 03-30-2022 End: 03-30-2022 Patient encounter procedure Phase 3 [facility] Comment on above: Chronic obstructive pulmonary disease, unspecified COPD type (HCC) Start: 03-26-2022 End: 03-26-2022 Patient encounter procedure Phase 3 [facility] Comment on above: Chronic obstructive pulmonary disease, unspecified COPD type (HCC) Start: 03-23-2022 End: 03-23-2022 Patient encounter procedure Phase 3 [facility] Comment on above: Chronic obstructive pulmonary disease, unspecified COPD type (HCC) Start: 03-19-2022 End: 03-19-2022 Patient encounter procedure Phase 3 [facility] Comment on above: Chronic obstructive pulmonary disease, unspecified COPD type (HCC) Start: 03-16-2022 End: 03-16-2022 Patient encounter procedure Phase 3 [facility] Comment on above: Chronic obstructive pulmonary disease, unspecified COPD type (HCC) Start: 03-12-2022 End: 03-12-2022 Patient encounter procedure Phase 3 [facility] Comment on above: Chronic obstructive pulmonary disease, unspecified COPD type (HCC) Refill Request Start: 03-09-2022 End: 03-09-2022 Patient encounter procedure Phase 3 [facility] Comment on above: Chronic obstructive pulmonary disease, unspecified COPD type (HCC) Start: 03-02-2022 End: 03-02-2022 Patient encounter procedure Phase 3 [facility] Comment on above: Chronic obstructive pulmonary disease, unspecified COPD type (HCC) Start: 03-01-2022 Documentation procedure Mammography Coordinator [facility] Start: 03-01-2022 Letter encounter Mammography Coordin [facility] AREA NOT LISTED Start: 03-01-2022 Telephone encounter Liudmila Olivera APRN.CNP Work Phone: [facility] Comment on above: Results Start: 03-01-2022 End: 03-01-2022 Subsequent hospital visit by physician Mammo/Bone D[facility] Comment on above: Encounter for screen ing mammogram for malignant neoplasm of breast [Z12.31] Start: 02-27-2022 ambulatory Liudmila hsieh APRN.CNP Work Phone: [facility] Comment on above: UTI Start: 02-26-2022 End: 02-26-2022 Patient encounter procedure Phase 3 [facility] Comment on above: Chronic obstructive pulmonary disease, unspecified COPD type (HCC) Start: 02-23-2022 End: 02-23-2022 Patient encounter procedure Phase 3 [facility] Comment on above: Chronic obstructive pulmonary disease, unspecified COPD type (HCC) Start: 02-22-2022 Telephone encounter Liudmila Olivera APRN.CNP Work Phone: [facility] Comment on above: Results Start: 02-20-2022 End: 02-20-2022 Patient encounter procedure Liudmila Olivera APRN.CNP Work Phone: [facility] Comment on above: Acute cystitis witho ut hematuria (Primary Dx); Dysuria; Psoriasis; Encounter for screening mammogram for malignant neoplasm of breast Start: 02-15-2022 End: 02-15-2022 Patient encounter procedure Phase 3 [facility] Comment on above: Chronic obstructive pulmonary disease, unspecified COPD type (HCC) Start: 02-12-2022 End: 02-12-2022 Patient encounter procedure Phase 3 [facility] Comment on above: Chronic obstructive pulmonary disease, unspecified COPD type (HCC) Start: 02-11-2022 Refill Liudmila hsieh SPACE ENGINEER.FAST FOOD CASHIER Work Phone: [facility] Comment on above: Refill Request Start: 02-09-2022 End: 02-09-2022 Patient encounter procedure Phase 3 [facility] Comment on above: Chronic obstructive pulmonary disease, unspecified COPD type (HCC) Procedures Date Procedure Procedure Detail Performing Clinician Start: 06-30-2025 COVID & INFLUENZA A/B & RSV PCR, ROUTINE Liudmila Olivera SPACE ENGINEER.FAST FOOD CASHIER Work Phone: Start: 06-30-2025 Ecg routine ecg w/least 12 lds w/i&r Liudmila Olivera SPACE ENGINEER.FAST FOOD CASHIER Work Phone: Start: 06-10-2025 Culture bacterial quanttative colony count urine Rossana Hernandez SPACE ENGINEER.FAST FOOD CASHIER Work Phone: Start: 06-10-2025 Urnls dip stick/tablet rgnt auto w/o microscopy Rossana Hernandez SPACE ENGINEER.FAST FOOD CASHIER Work Phone: Start: 05-24-2025 CT of chest without contrast Liudmila marcos REMOTE ADVISOR-C Work Phone: Start: 04-28-2025 Colonoscopy flx dx w/collj spec when pfrmd Saray Villegas MD Work Phone: Start: 04-28-2025 Esophagogastroduodenoscopy transoral diagnostic Saray Villegas MD Work Phone: Start: 04-28-2025 Gluc bld gluc mntr dev cleared fda spec home use Miguel Angel Bee MD Work Phone: Start: 04-28-2025 [facility] Saray Villegas MD Work Phone: Start: 03-18-2025 Gram stain microscopy Liudmila Olivera REMOTE ADVISOR-C Work Phone: Start: 03-18-2025 Respiratory microbial culture Liudmila cota REMOTE ADVISOR-C Work Phone: Start: 03-18-2025 Viral culture Liudmila Olivera REMOTE ADVISOR-C Work Phone: Start: 03-18-2025 Bronchoscopy Liudmila Olivera REMOTE ADVISOR-C Work Phone: Start: 03-18-2025 Estimated creatinine clearance Liudmila ward REMOTE ADVISOR-C Work Phone: Start: 03-18-2025 Plain chest X-ray Liudmila Olivera REMOTE ADVISOR-C Work Phone: Start: 03-17-2025 SARS-CoV-2, Influenza & RSV (PCR) Katie Olivera REMOTE ADVISOR-C Work Phone: Start: 03-17-2025 CT angiography of chest with contrast Liudmila Olivera REMOTE ADVISOR-C Work Phone: Start: 03-17-2025 X-ray of chest, PA and lateral views Liudmila Olivera REMOTE ADVISOR-C Work Phone: Start: 03-17-2025 Oxygen measurement Liudmila Olivera REMOTE ADVISOR-C Work Phone: Start: 03-17-2025 D-dimer assay, quantitative Liudmila hsieh REMOTE ADVISOR-C Work Phone: Comment on above: D-Dimer ELEVATED (>0.49): Additional gus dies and clinicalassessments are indicated to conclude diagnosis of:Deep Vein Thrombosis (DVT) or Pulmonary Embolism (PE)CRITICAL VALUE CALLED TO KEV ZARAGOZA (ER)03/17/25 0825 Ankur Alarcon.RESULTS READ BACK BY SAME. Start: 09-15-2024 Hemoglobin A1c/Hemoglobin.total in Blood Liudmila Olivera SPACE ENGINEER.FAST FOOD CASHIER Work Phone: Start: 06-15-2024 Hemoglobin A1c/Hemoglobin.total in Blood Rossana Rell David SPACE ENGINEER.FAST FOOD CASHIER Work Phone: Start: 06-15-2024 Urnls dip stick/tablet rgnt auto w/o microscopy Rossana Rell David SPACE ENGINEER.FAST FOOD CASHIER Work Phone: Start: 05-12-2024 Adult depression screening assessment Liudmila Olivera SPACE ENGINEER.FAST FOOD CASHIER Work Phone: Start: 04-03-2024 Urnls dip stick/tablet rgnt auto w/o microscopy Liudmila Olivera SPACE ENGINEER.FAST FOOD CASHIER Work Phone: Start: 01-13-2024 Lipid 1996 panel - Serum or Plasma Osvaldo Olivera SPACE ENGINEER.FAST FOOD CASHIER Work Phone: Start: 01-03-2024 STREP A MOLECULAR (POC) Liudmila Olivera SPACE ENGINEER.FAST FOOD CASHIER Work Phone: Start: 12-27-2023 Urnls dip stick/tablet rgnt auto w/o microscopy Liudmila Olivera SPACE ENGINEER.FAST FOOD CASHIER Work Phone: Start: 10-03-2023 CT of chest REMOTE ADVISOR-C Liudmila Olivera REMOTE ADVISOR Work Phone: Start: 06-29-2023 Acid fast bacilli culture REMOTE ADVISOR-Jessi Olivera REMOTE ADVISOR Work Phone: Start: 06-29-2023 Cytopathology procedure, preparation of smear, genital source REMOTE ADVISOR-Jessi Olivera REMOTE ADVISOR Work Phone: Start: 06-29-2023 Investigation of transfusion reaction REMOTE ADVISOR-C Liudmila Olivera REMOTE ADVISOR Work Phone: Start: 06-29-2023 Respiratory microbial culture REMOTE ADVISOR-C Osvaldo Olivera REMOTE ADVISOR Work Phone: Start: 06-29-2023 Streptococcus pneumoniae Antigen (M REMOTE ADVISOR-Jessi Olivera REMOTE ADVISOR Work Phone: Start: 06-28-2023 Viral culture REMOTE ADVISOR-C Liudmila Olivera REMOTE ADVISOR Work Phone: Start: 08-11-2023 Bronchoscopy REMOTE ADVISOR-Jessi Olivera REMOTE ADVISOR Work Phone: Start: 06-28-2023 Plain chest X-ray REMOTE ADVISOR-C Liudmila Olivera REMOTE ADVISOR Work Phone: Start: 03-05-2023 Mammography Liudmila Olivera APRN.FAST FOOD CASHIER Work Phone: Start: 01-14-2023 Lipid 1996 panel - Serum or Plasma Krnatanael ho Sanahemant RODRIGUEZ.FAST FOOD CASHIER Work Phone: Start: 12-31-2022 STREP A MOLECULAR (POC) Liudmila Olivera SPACE ENGINEER.FAST FOOD CASHIER Work Phone: Start: 10-01-2022 CT of chest Start: 07-12-2022 Mri spinal canal cervical w/o & w/contr matrl [facility] Start: 04-20-2022 Urnls dip stick/tablet rgnt auto w/o microscopy [facility] Provider Start: 03-01-2022 End: 03-01-2022 Mammography Liudmila Olivera JENNIFER.FAST FOOD CASHIER Work Phone: Start: 02-20-2022 Urnls dip stick/tablet rgnt auto w/o microscopy Liudmila Olivera SPACE ENGINEER.FAST FOOD CASHIER Work Phone: Start: 02-20-2022 Culture bacterial quanttative colony count urine Liudmila Olivera APRN.FAST FOOD CASHIER Work Phone: Start: 02-20-2022 Adult depression screening assessment Liudmila Olivera JENNIFER.FAST FOOD CASHIER Work Phone: Start: 12-30-2020 Adult depression screening assessment [facility] [place] Start: 12-06-2020 Mammography [facility] [place] Start: 10-31-2020 H/O: hysterectomy H/O: hysterectomy [facility] [place] Start: 12-22-2019 Colonoscopy [facility] [place] H/O: hysterectomy History of hysterectomy H/O: surgery History of lung biopsy History of coronary artery bypass grafting Hx of CABG [facility] [place] Plan of Treatment Date Care Activity Detail Author Start: 04-28-2030 Screening for malign ant neoplasm of colon [facility] Start: 01-13-2029 Lipid panel Lipid Screening [facility] Start: 01-14-2028 Lipid 1996 panel - S zhang or Plasma Lipid Screening [facility] Start: 01-14-2028 Lipid panel Lipid Screening [facility] Start: 01-14-2028 LIPID SCREEN LIPID SCREEN [facility] Start: 06-15-2027 Diabetes Screening Diabetes Screenin g [facility] Start: 04-23-2027 LIPID SCREEN LIPID SCREEN [facility] Start: 03-16-2027 Diabetes Screening Diabetes Screenin g [facility] Start: 01-13-2027 Diabetes Screening Diabetes Screenin g [facility] Start: 10-27-2026 Diabetes Screening Diabetes Screenin g [facility] Start: 10-25-2026 Diabetes Screening Diabetes Screenin g [facility] Start: 08-05-2026 LIPID SCREEN LIPID SCREEN [facility] Start: 07-06-2026 Annual PCP Team Stamp Presser jaqueline Disease Visit Annual PCP Team Chronic Disease Visit [facility] Start: 06-30-2026 Annual PCP Team Stamp Presser jaqueline Disease Visit Annual PCP Team Chronic Disease Visit [facility] Start: 06-27-2026 DIABETES SCREEN DIABETES SCREEN [facility] Start: 06-27-2026 Diabetes Screening Diabetes Screenin g [facility] Start: 06-24-2026 Screening for malign ant neoplasm of breast Mammogram Screening [facility] Start: 06-10-2026 Annual PCP Team Stamp Presser jaqueline Disease Visit Annual PCP Team Chronic Disease Visit [facility] Start: 06-10-2026 RSV Vaccine (1 - Ris k 60-74 years 1-dose series) RSV Vaccine (1 - Risk 60-74 years 1-dose series) [facility] Comment on above: Postponed from 07/25 (Declined at this time) Start: 05-14-2026 Annual PCP Team Stamp Presser jaqueline Disease Visit Annual PCP Team Chronic Disease Visit [facility] Start: 04-30-2026 DIABETES SCREEN DIABETES SCREEN [facility] Start: 04-09-2026 Annual PCP Team Stamp Presser jaqueline Disease Visit Annual PCP Team Chronic Disease Visit [facility] Start: 04-09-2026 BP Controlled (<130/80) BP Controlle d (<130/80) [facility] Start: 03-08-2026 Annual PCP Team Stamp Presser jaqueline Disease Visit Annual PCP Team Chronic Disease Visit [facility] Start: 03-03-2026 Hepatitis B surface antibody level LDL Cholesterol [facility] Start: 02-05-2026 BP Controlled (<130/80) BP Controlle d (<130/80) [facility] Start: 01-14-2026 DIABETES SCREEN DIABETES SCREEN [facility] Start: 12-17-2025 End: 02-05-2026 Echocardiography ECHO Cardiology Routine Dilatation of thoracic aorta (HCC) Expected: 12/17/2025, Expires: 02/05/2026 [facility] Work Phone: Comment on above: Expected: 12/17/2025 , Expires: 02/05/2026 Start: 12-07-2025 Annual PCP Team Stamp Presser jaqueline Disease Visit Annual PCP Team Chronic Disease Visit [facility] Start: 12-07-2025 BP Controlled (<130/80) BP Controlle d (<130/80) [facility] Start: 11-03-2025 Annual PCP Team Stamp Presser jaqueline Disease Visit Annual PCP Team Chronic Disease Visit [facility] Start: 11-03-2025 BP Controlled (<130/80) BP Controlle d (<130/80) [facility] Start: 10-28-2025 Glaucoma screening Dilated Retinal E xam [facility] Start: 10-19-2025 PAP TESTING PAP TESTING [facility] Start: 10-19-2025 Screening for malign ant neoplasm of cervix Pap Testing [facility] Start: 09-15-2025 Annual PCP Team Stamp Presser jaqueline Disease Visit Annual PCP Team Chronic Disease Visit [facility] Start: 09-15-2025 BP Controlled (<130/80) BP Controlle d (<130/80) [facility] Start: 09-11-2025 Hepatitis B screening Urine Albumin:Creatinine Ratio [facility] Start: 09-06-2025 End: 09-06-2025 Patient encounter procedure 09/06/2025 10:20 AM EDT Office Visit [facility] [address] [place] [address] Liudmila Olivera APRN.FAST FOOD CASHIER [address] [place] [address] diabetic follow up [facility] Comment on above: diabetic follow up Start: 09-02-2025 Hemoglobin A1c measurement HbA1C [facility] Start: 08-17-2025 Annual PCP Team Stamp Presser jaqueline Disease Visit Annual PCP Team Chronic Disease Visit [facility] Start: 08-17-2025 BP Controlled (<130/80) BP Controlle d (<130/80) [facility] Start: 08-05-2025 BP Controlled (<130/80) BP Controlle d (<130/80) [facility] Start: 07-29-2025 Annual PCP Team Stamp Presser jaqueline Disease Visit Annual PCP Team Chronic Disease Visit [facility] Start: 07-29-2025 BP Controlled (<130/80) BP Controlle d (<130/80) [facility] Start: 07-27-2025 Annual PCP Team Stamp Presser jaqueline Disease Visit Annual PCP Team Chronic Disease Visit [facility] Start: 07-27-2025 Anxiety Screening Anxiety Screening [facility] Comment on above: Postponed from 07/25 (Declined at this time) Postponed from 05/12 (Declined at this time) Start: 07-27-2025 BP Controlled (<130/80) BP Controlle d (<130/80) [facility] Start: 07-27-2025 Covid-19 Vaccine ( season) Covid-19 Vaccine ( season) [facility] Comment on above: Postponed from 07/19 (Declined at this time) Start: 07-27-2025 Covid-19 Vaccine ( season) Covid-19 Vaccine ( season) [facility] Comment on above: Postponed from 07/19 (Declined at this time) Start: 07-27-2025 Shingrix Vaccine (1 of 2) [place] grix Vaccine (1 of 2) [facility] Comment on above: Postponed from 07/25 (Declined at this time) Start: 07-27-2025 Urine microalbumin profile DTa P,Tdap,Td Vaccine (1 - Tdap) [facility] Comment on above: Postponed from 07/25 (Declined at this time) Start: 07-26-2025 DIABETES SCREEN DIABETES SCREEN [facility] Start: 07-19-2025 Influenza vaccination C [facility] Start: 07-14-2025 Annual PCP Team Stamp Presser jaqueline Disease Visit Annual PCP Team Chronic Disease Visit [facility] Start: 07-14-2025 BP Controlled (<130/80) BP Controlle d (<130/80) [facility] Start: 07-14-2025 Diabetic foot examination Diabetic F oot Exam [facility] Start: 07-06-2025 End: 07-06-2025 Patient encounter procedure 07/06/2025 10:40 AM EDT Office Visit [facility] [address], [place] [phone] Liudmila Olivera APRN.FAST FOOD CASHIER [address], [place] [id number] for GERD. [facility] Comment on above: for GERD. Start: 07-03-2025 DIABETES SCREEN DIABETES SCREEN [facility] Start: 06-24-2025 End: 06-24-2025 Patient encounter procedure 06/24/2025 8:00 AM EDT Appointment [facility] [address], [place] [phone] [facility] Start: 06-15-2025 Annual PCP Team Stamp Presser jaqueline Disease Visit Annual PCP Team Chronic Disease Visit [facility] Start: 06-15-2025 BP Controlled (<130/80) BP Controlle d (<130/80) [facility] Start: 05-20-2025 Screening for malign ant neoplasm of breast Mammogram Screening [facility] Start: 05-17-2025 Influenza vaccination Influenza Vacc ine (#1) [facility] Comment on above: Postponed from 07/19 (Declined at this time) Start: 05-14-2025 End: 05-14-2025 Patient encounter procedure 05/14/2025 10:20 AM EDT Office Visit [facility] [address], [place] [id number] Liudmila Olivera APRN.FAST FOOD CASHIER [address], [place] [phone] well woman with Pap. [facility] Comment on above: well woman with Pap. Start: 05-12-2025 Annual PCP Team Stamp Presser jaqueline Disease Visit Annual PCP Team Chronic Disease Visit [facility] Start: 05-12-2025 BP Controlled (<130/80) BP Controlle d (<130/80) [facility] Start: 05-12-2025 Depression Screening Depression Scre ening [facility] Start: 04-28-2025 End: 04-28-2025 Patient encounter procedure 04/28/2025 2:45 PM EDT Appointment [facility] [address] [place] [address] Saray Villegas MD [address] [place] [id number] [facility] Start: 04-23-2025 DIABETES SCREEN DIABETES SCREEN [facility] Start: 04-13-2025 End: 04-13-2025 Anesthesia consultation 04/13/2025 9:00 AM EDT PAT Pre Anesthesia [address] [place] [id number] 04/28 VIRTUAL [phone] EGD/COL Pre Anesthesia Comment on above: 04/28 VIRTUAL EGD/COL Start: 04-09-2025 End: 04-09-2025 Patient encounter procedure 04/09/2025 2:00 PM EDT Office Visit [facility] [address], [place] [phone] Liudmila Olivera, JENNIFER.[facility] [address] [place] [address] [facility] Comment on above: [facility] Start: 04-03-2025 Annual PCP Team Stamp Presser jaqueline Disease Visit Annual PCP Team Chronic Disease Visit [facility] Start: 04-03-2025 BP Controlled (<130/80) BP Controlle d (<130/80) [facility] Start: 03-19-2025 Patient discharge [facility] Start: 03-18-2025 Acid Fast Bacilli Culture Acid Fast Bacilli Culture [facility] Start: 03-18-2025 Acid Fast Bacilli Smear Acid Fast Ba cilli Smear [facility] Start: 03-18-2025 [facility] Start: 03-18-2025 Acid fast bacilli culture [facility] Start: 03-17-2025 Following clinical p athway protocol [facility] Start: 03-17-2025 Ambulation without limitation [facility] Start: 03-17-2025 Assessment of risk o f venous thromboembolism [facility] Start: 03-17-2025 Care regimes management [facility] Start: 03-17-2025 Incentive spirometry [facility] Start: 03-17-2025 Inhalation therapy procedure [facility] Start: 03-17-2025 Insertion of cathete r into peripheral vein [facility] Start: 03-17-2025 Notification of physician [facility] Start: 03-17-2025 Oxygen therapy [facility] Start: 03-17-2025 Providing care accor ding to standard [facility] Start: 03-17-2025 Referral to service [facility] Start: 03-17-2025 End: 03-17-2025 [facility] Start: 03-17-2025 Verification routine [facility] Start: 03-17-2025 Admission procedure [facility] Start: 03-17-2025 Hospital admission, emergency, from emergency room, medical nature [facility] Start: 03-17-2025 End: 03-17-2025 [facility] Start: 03-16-2025 Hemoglobin A1c measurement HbA1C [facility] Start: 03-16-2025 End: 03-16-2025 Patient encounter procedure 03/16/2025 8:40 AM EDT Office Visit [facility] [address] [place] [address] Liudmila Olivera, SPACE ENGINEER.FAST FOOD CASHIER [address] [place] [address] for Diabetes, Cholesterol. [facility] Comment on above: for Diabetes, Choles terol. Start: 03-08-2025 End: 03-08-2025 Patient encounter procedure 03/08/2025 10:20 AM EDT Office Visit [facility] [address] [place] [address] Liudmila Olivera, SPACE ENGINEER.FAST FOOD CASHIER [address], [place] [phone] for Diabetes, Cholesterol. [facility] Comment on above: for Diabetes, Choles terol. Start: 03-02-2025 End: 09-28-2025 CBC panel - Blood by Automated count COMPLETE BLOOD COUNT Lab Routine Primary hypertension Mixed hyperlipidemia Hypothyroidism, acquired Expected: 03/02/2025, Expires: 09/28/2025 [facility] Comment on above: Expected: 03/02/2025 , Expires: 09/28/2025 Start: 03-02-2025 End: 09-28-2025 Comprehensive metabolic 2000 panel - Serum or Plasma COMPREHENSIVE METABOLIC PANEL Lab Routine Primary hypertension Mixed hyperlipidemia Hypothyroidism, acquired Expected: 03/02/2025, Expires: 09/28/2025 [facility] Comment on above: Expected: 03/02/2025 , Expires: 09/28/2025 Start: 03-02-2025 End: 09-28-2025 Hemoglobin A1c in Blood HEMOGLOBIN A1C Lab Routine Type 2 diabetes mellitus without complication, without long-term current use of insulin (HCC) Expected: 03/02/2025, Expires: 09/28/2025 [facility] Comment on above: Expected: 03/02/2025 , Expires: 09/28/2025 Start: 03-02-2025 End: 06-01-2025 Lipid 1996 panel - Serum or Plasma LIPID PANEL, FASTING Lab Routine Primary hypertension Mixed hyperlipidemia Hypothyroidism, acquired Expected: 03/02/2025, Expires: 06/01/2025 [facility] Work Phone: Comment on above: Expected: 03/02/2025 , Expires: 06/01/2025 Start: 03-02-2025 End: 09-28-2025 Thyrotropin [Units/volume] in Serum or Plasma THYROID STIMULATING HORMONE Lab Routine Mixed hyperlipidemia Hypothyroidism, acquired Expected: 03/02/2025, Expires: 09/28/2025 [facility] Comment on above: Expected: 03/02/2025 , Expires: 09/28/2025 Start: 02-05-2025 End: 02-05-2025 Patient encounter procedure 02/05/2025 2:40 PM EDT Office Visit Cardiology [address] [place] [phone] Jessi Bowser MD [address] [place] [address] Echo follow up Cardiology Comment on above: Echo follow up Start: 02-04-2025 End: 02-04-2025 Patient encounter procedure 02/04/2025 2:20 PM EDT Office Visit Cardiology [address] [place] [phone] Jessi Bowser MD [address] [place] [phone] Echo follow up [facility]iology Comment on above: Echo follow up Start: 02-02-2025 End: 05-04-2025 Urinalysis complete panel - Urine [facility] Work Phone: Comment on above: Expected: 02/02/2025 , Expires: 05/04/2025 Start: 01-20-2025 Annual PCP Team Stamp Presser jaqueline Disease Visit Annual PCP Team Chronic Disease Visit [facility] Start: 01-20-2025 BP Controlled (<130/80) BP Controlle d (<130/80) [facility] Start: 01-13-2025 Hepatitis B surface antibody level LDL Cholesterol [facility] Start: 01-03-2025 Annual PCP Team Stamp Presser jaqueline Disease Visit Annual PCP Team Chronic Disease Visit [facility] Start: 01-03-2025 BP Controlled (<130/80) BP Controlle d (<130/80) [facility] Start: 12-27-2024 Annual PCP Team Stamp Presser jaqueline Disease Visit Annual PCP Team Chronic Disease Visit [facility] Start: 12-27-2024 BP Controlled (<130/80) BP Controlle d (<130/80) [facility] Start: 12-22-2024 Colonoscopy COLONOSCOPY [facility] Start: 12-22-2024 COLORECTAL CANCER SCREENING COLORECTAL CANCER SCREENING [facility] Start: 12-22-2024 Screening for malign ant neoplasm of colon [facility] Start: 12-15-2024 End: 12-15-2024 Patient encounter procedure 12/15/2024 8:50 AM EST Office Visit Cardiology [address] [place] [id number] Ascending aorta dilatation (HCC) [I77.810] Cardiology Comment on above: Ascending aorta dila tation (HCC) [I77.810] Start: 11-20-2024 End: 11-20-2024 Patient encounter procedure 11/20/2024 11:40 AM EST Office Visit Cardiology [address] [address] Jessi Bowser MD [address] [place], [place] [phone] 6 mo follow up Cardiology Comment on above: 6 mo follow up Start: 11-18-2024 Medicare Advantage A nnual Wellness Visit Medicare Advantage Annual Wellness Visit [facility] Start: 11-17-2024 Behavioral Health Screening Behavioral Health Screening [facility] Comment on above: Postponed from 11/18 (Declined at this time) Start: 11-17-2024 Depression Assessment Depression Ass essment [facility] Comment on above: Postponed from 11/18 (Declined at this time) Start: 11-13-2024 End: 11-13-2024 Patient encounter procedure 11/13/2024 8:00 AM EST Office Visit Cardiology [address] [address] Jessi Bowser MD [address] [place], [place] [phone] 6 mo follow up Cardiology Comment on above: 6 mo follow up Start: 11-04-2024 End: 06-09-2025 Echocardiography ECHO Cardiology Routine Ascending aorta dilatation (HCC) Expected: 11/04/2024, Expires: 06/09/2025 [facility] Work Phone: Comment on above: Expected: 11/04/2024 , Expires: 06/09/2025 Start: 11-04-2024 End: 11-04-2024 Patient encounter procedure 11/04/2024 8:00 AM EST Office Visit Cardiology [address] [phone] Ascending aorta dilatation (HCC) [I77.810] Cardiology Comment on above: Ascending aorta dila tation (HCC) [I77.810] Start: 10-04-2024 Annual PCP Team Stamp Presser jaqueline Disease Visit Annual PCP Team Chronic Disease Visit [facility] Start: 10-04-2024 BP Controlled (<130/80) BP Controlle d (<130/80) [facility] Start: 10-04-2024 Glaucoma screening Dilated Retinal E xam [facility] Start: 10-04-2024 RSV Vaccine (1 - 1-d ose 60+ series) RSV Vaccine (1 - 1-dose 60+ series) [facility] Comment on above: Postponed from 07/25 (Declined at this time) Start: 10-04-2024 RSV Vaccine (1 - Ris k 60-74 years 1-dose series) RSV Vaccine (1 - Risk 60-74 years 1-dose series) [facility] Comment on above: Postponed from 07/25 (Declined at this time) Start: 09-15-2024 Hemoglobin A1c measurement HbA1C [facility] Start: 09-15-2024 End: 09-15-2024 Patient encounter procedure 09/15/2024 8:40 AM EDT Office Visit [facility] [address] [place] [address] Liudmila Olivera APRN.FAST FOOD CASHIER [address] [place] [address] 2 MTH F/U DM [facility] Comment on above: 2 MTH F/U DM Start: 09-13-2024 Annual PCP Team Stamp Presser jaqueline Disease Visit Annual PCP Team Chronic Disease Visit [facility] Start: 09-13-2024 BP Controlled (<130/80) BP Controlle d (<130/80) [facility] Start: 09-09-2024 End: 12-09-2024 Microalbumin/Creatinine [Mass Ratio] in Urine ALBUMIN/CREATININE RATIO, URINE Lab Routine Newly diagnosed diabetes (HCC) Expected: 09/09/2024, Expires: 12/09/2024 [facility] Work Phone: Comment on above: Expected: 09/09/2024 , Expires: 12/09/2024 Start: 08-24-2024 End: 08-24-2024 Patient encounter procedure General Surgery Comment on above: post op i & d [facility] 08/07 post op I&D 08/07 Start: 08-11-2024 End: 08-11-2024 Patient encounter procedure 08/11/2024 2:00 PM EDT Office Visit General Surgery [address] [place], [place] [id number] Saray Villegas MD [address] [place] [phone] check incision, draining yellow pus General Surgery Comment on above: check incision, drai irais yellow pus Start: 08-07-2024 End: 08-07-2024 Admission to same day surgery center 08/07/2024 11:30 AM EDT - 08/07/2024 12:25 PM EDT Surgery [facility] Surgery [address] [place] [phone] Saray Villegas MD [address] [place] [phone] INCISION AND DRAINAGE ABSCESS GROIN SIMPLE/SINGLE [facility] Surgery Comment on above: INCISION AND DRAINAG E ABSCESS GROIN SIMPLE/SINGLE Start: 08-07-2024 End: 08-07-2024 Incision & drainage abscess simple/single INCISION AND DRAINAGE ABSCESS GROIN SIMPLE/SINGLE Abscess of groin, right 08/07/2024 11:30 AM EDT ME OR Start: 08-07-2024 Subsequent hospital visit by physician 08/07/2024 11:30 AM EDT Hospital Encounter [facility] Surgery [address] [place] [address], [place] [address] Saray Villegas MD [address] [place] [phone] Abscess of groin, right [L02.214] [facility] Surgery Comment on above: Abscess of groin, ri ght [L02.214] Start: 08-05-2024 End: 08-05-2024 Patient encounter procedure 08/05/2024 4:00 PM EDT Office Visit General Surgery [address], [place] [phone] Saray Villegas MD [address] [place] [phone] 07/27/24 [place] ED F/U - Cutaneous abscess and cellulitis of groin General Surgery Comment on above: 07/27/24 [place] ED F/U - Cutaneous abscess and cellulitis of groin Start: 07-29-2024 End: 07-29-2024 Patient encounter procedure 07/29/2024 5:00 PM EDT Office Visit [facility] [address], [place] [phone] Liudmila Olivera, SPACE ENGINEER.FAST FOOD CASHIER [address], [place] [phone] [facility] ED F/U cutaneous abscess and cellulitis of groin [facility] Comment on above: [facility] ED F/U cutaneous abscess and cellulitis of groin Start: 07-27-2024 Depression Screening Depression [facility] Comment on above: Postponed from 07/25 (Declined at this time) Start: 07-24-2024 End: 07-24-2024 Patient encounter procedure 07/24/2024 9:20 AM EDT Office Visit [facility] [address] [place] [address] Liudmila Olivera, SPACE ENGINEER.FAST FOOD CASHIER [address] [place], [place] [phone] follow up Thyroid [facility] Comment on above: follow up Thyroid Start: 07-23-2024 ANNUAL PCP TEAM ARTIST MODEL JAQUELINE DISEASE VISIT ANNUAL PCP TEAM CHRONIC DISEASE VISIT [facility] Start: 07-23-2024 BP CONTROLLED (<130/80) BP CONTROLLE D (<130/80) [facility] Start: 07-19-2024 Covid-19 Vaccine ( season) Covid-19 Vaccine ( season) [facility] Start: 07-19-2024 Influenza vaccination Influenza Vacc ine (#1) [facility] Start: 07-15-2024 End: 07-15-2024 Nutrition therapy 07/15/2024 8:00 AM EDT Education [facility] [address] [place] [address] Diabetes [facility] Comment on above: Diabetes Start: 07-14-2024 End: 07-14-2024 Patient encounter procedure 07/14/2024 9:00 AM EDT Office Visit [facility] [address] [place] [address] Liudmila Olivera, JENNIFER.FAST FOOD CASHIER [address] [place] [address] DM follow up [facility] Comment on above: DM follow up Start: 06-09-2024 End: 06-09-2024 Patient encounter procedure 06/09/2024 11:00 AM EDT Office Visit Cardiology [address] [place] [phone] Jessi Bowser MD [address] [place] [phone] 6 month follow up Cardiology Comment on above: 6 month follow up Start: 05-20-2024 End: 05-20-2024 Patient encounter procedure [facility] Comment on above: Breast cancer screen ing by mammogram [Z12.31] Osteopenia of lumbar spine [M85.88] Start: 05-19-2024 End: 08-18-2024 Thyrotropin [Units/volume] in Serum or Plasma THYROID STIMULATING HORMONE Lab Routine Hypothyroidism, acquired Expected: 05/19/2024, Expires: 08/18/2024 [facility] Work Phone: Comment on above: Expected: 05/19/2024 , Expires: 08/18/2024 Start: 05-14-2024 ANNUAL PCP TEAM ARTIST MODEL JAQUELINE DISEASE VISIT ANNUAL PCP TEAM CHRONIC DISEASE VISIT [facility] Start: 05-14-2024 BP CONTROLLED (<130/80) BP CONTROLLE D (<130/80) [facility] Start: 05-12-2024 End: 05-12-2024 Patient encounter procedure 05/12/2024 9:20 AM EDT Office Visit [facility] [address] [place] [address] Liudmila Olivera APRN.FAST FOOD CASHIER [address] [place] [address] annual, HTN & GERD [facility] Comment on above: annual, HTN & GERD Start: 04-30-2024 ANNUAL PCP TEAM ARTIST MODEL JAQUELINE DISEASE VISIT ANNUAL PCP TEAM CHRONIC DISEASE VISIT [facility] Start: 04-30-2024 BP CONTROLLED (<130/80) BP CONTROLLE D (<130/80) [facility] Start: 04-30-2024 COVID-19 VACCINE (#1) COVID-19 VACCI NE (#1) [facility] Comment on above: Postponed from 01/22 (Declined at this time) Postponed from 07/25 (Declined at this time) Start: 04-30-2024 PNEUMOCOCCAL (2 - PCV) PNEUMOCOCCAL (2 - PCV) [facility] Comment on above: Postponed from 08/27 (Declined at this time) Start: 04-30-2024 Pneumococcal vaccination [facility] Comment on above: Postponed from 08/27 (Declined at this time) Start: 04-30-2024 SHINGRIX VACCINE (1 of 2) DOMINGUEZ GRIX VACCINE (1 of 2) [facility] Comment on above: Postponed from 07/25 (Declined at this time) Postponed from 07/25 (Declined at this time) Start: 04-21-2024 DIABETES SCREEN DIABETES SCREEN [facility] Start: 04-03-2024 End: 04-03-2024 Patient encounter procedure 04/03/2024 11:00 AM EDT Office Visit [facility] [address] [place] [address] Liudmila Olivera APRN.FAST FOOD CASHIER [address] [place] [address] blood pressure [facility] Comment on above: blood pressure Start: 03-25-2024 ANNUAL PCP TEAM ARTIST MODEL JAQUELINE DISEASE VISIT ANNUAL PCP TEAM CHRONIC DISEASE VISIT [facility] Start: 03-25-2024 BP CONTROLLED (<130/80) BP CONTROLLE D (<130/80) [facility] Start: 03-18-2024 End: 06-17-2024 Thyrotropin [Units/volume] in Serum or Plasma THYROID STIMULATING HORMONE Lab Routine Hypothyroidism, acquired Expected: 03/18/2024, Expires: 06/17/2024 [facility] Work Phone: Comment on above: Expected: 03/18/2024 , Expires: 06/17/2024 Start: 03-09-2024 End: 06-08-2024 Basic metabolic 2000 panel - Serum or Plasma BASIC METABOLIC PNL Lab Routine Bilateral leg edema Expected: 03/09/2024, Expires: 06/08/2024 [facility] Work Phone: Comment on above: Expected: 03/09/2024 , Expires: 06/08/2024 Start: 03-05-2024 Mammography [facility] Start: 03-05-2024 Screening for malign ant neoplasm of breast Mammogram Screening [facility] Start: 01-17-2024 ANNUAL PCP TEAM ARTIST MODEL JAQUELINE DISEASE VISIT ANNUAL PCP TEAM CHRONIC DISEASE VISIT [facility] Start: 01-17-2024 BP CONTROLLED (<130/80) BP CONTROLLE D (<130/80) [facility] Start: 12-31-2023 ANNUAL PCP TEAM ARTIST MODEL JAQUELINE DISEASE VISIT ANNUAL PCP TEAM CHRONIC DISEASE VISIT [facility] Start: 12-31-2023 BP CONTROLLED (<130/80) BP CONTROLLE D (<130/80) [facility] Start: 11-27-2023 ANNUAL PCP TEAM ARTIST MODEL JAQUELINE DISEASE VISIT ANNUAL PCP TEAM CHRONIC DISEASE VISIT [facility] Start: 11-27-2023 BP CONTROLLED (<130/80) BP CONTROLLE D (<130/80) [facility] Start: 11-18-2023 Depression Assessment Depression Ass essment [facility] Start: 11-17-2023 [facility]PRESSION [facility]MENT [facility] Comment on above: Postponed from 11/18 (Declined at this time) Start: 07-30-2023 ANNUAL PCP TEAM ARTIST MODEL JAQUELINE DISEASE VISIT ANNUAL PCP TEAM CHRONIC DISEASE VISIT [facility] Start: 07-30-2023 BP CONTROLLED (<130/80) BP CONTROLLE D (<130/80) [facility] Start: 07-30-2023 Urine microalbumin profile [facility] Comment on above: Postponed from 07/25 (Declined at this time) Start: 2023 RSV Vaccine (1 - 1-d ose 60+ series) RSV Vaccine (1 - 1-dose 60+ series) [facility] Start: 2023 RSV Vaccine (1 - Ris k 60-74 years 1-dose series) RSV Vaccine (1 - Risk 60-74 years 1-dose series) [facility] Start: 07-19-2023 Covid-19 Vaccine (2022- season) Covid-19 Vaccine ( season) [facility] Start: 07-19-2023 Influenza vaccination C [facility] Start: 06-30-2023 Patient discharge [facility] Start: 06-29-2023 Respiratory microbia l culture Respiratory Culture [facility] Start: 06-28-2023 Virus Culture Virus Culture [facility] Start: 06-28-2023 Methicillin resistan t Staphylococcus aureus screening test [facility] Start: 06-28-2023 Physiotherapy of chest [facility] Start: 06-27-2023 End: 06-28-2023 [facility] Start: 06-27-2023 Dual pressure sponta neous ventilation support [facility] Start: 06-27-2023 Continuous pulse oximetry [facility] Start: 06-27-2023 Referral to occupati onal therapist [facility] Start: 06-27-2023 Referral to service [facility] Start: 06-27-2023 Admission procedure [facility] Start: 06-27-2023 Ambulation without limitation [facility] Start: 06-27-2023 Assessment of risk o f venous thromboembolism [facility] Start: 06-27-2023 Consultation [facility] Start: 06-27-2023 Insertion of cathete r into peripheral vein [facility] Start: 06-27-2023 Measuring intake and output [facility] Start: 06-27-2023 Oxygen therapy [facility] Start: 06-27-2023 Providing care accor ding to standard [facility] Start: 06-27-2023 Following clinical p athway protocol [facility] Start: 06-27-2023 Inhalation therapy procedure [facility] Start: 04-20-2023 ANNUAL PCP TEAM ARTIST MODEL JAQUELINE DISEASE VISIT ANNUAL PCP TEAM CHRONIC DISEASE VISIT [facility] Start: 04-20-2023 BP CONTROLLED (<130/80) BP CONTROLLE D (<130/80) [facility] Start: 04-20-2023 COVID-19 VACCINE (#1) COVID-19 VACCI NE (#1) [facility] Comment on above: Postponed from 07/25 (Declined at this time) Postponed from 01/22 (Declined at this time) Start: 04-20-2023 PNEUMOCOCCAL (2 - PCV) PNEUMOCOCCAL (2 - PCV) [facility] Comment on above: Postponed from 08/27 (Declined at this time) Start: 03-01-2023 Mammography MAMMOGRAM [facility] Start: 02-20-2023 Adult depression scr eening assessment DEPRESSION SCREENING [facility] Start: 02-20-2023 ANNUAL PCP TEAM ARTIST MODEL JAQUELINE DISEASE VISIT ANNUAL PCP TEAM CHRONIC DISEASE VISIT [facility] Start: 02-20-2023 BP CONTROLLED (<130/80) BP CONTROLLE D (<130/80) [facility] Start: 12-28-2022 BP CONTROLLED (<130/80) BP CONTROLLE D (<130/80) [facility] Start: 11-18-2022 DEPRESSION ASSESSMENT DEPRESSION ASS ESSMENT [facility] Start: 10-20-2022 ANNUAL PCP TEAM ARTIST MODEL JAQUELINE DISEASE VISIT ANNUAL PCP TEAM CHRONIC DISEASE VISIT [facility] Start: 07-19-2022 Influenza vaccination C [facility] Start: 06-22-2022 End: 08-22-2022 Basic metabolic 2000 panel - Serum or Plasma BASIC METABOLIC PNL Lab Routine Bilateral leg edema Expected: 06/22/2022, Expires: 08/22/2022 [facility] Work Phone: Comment on above: Expected: 06/22/2022 , Expires: 08/22/2022 Start: 04-20-2022 End: 06-20-2022 VITAMIN D 25 HYDROXY VITAMIN D 25 HYDROXY Lab Routine Vitamin D deficiency Expected: 04/20/2022, Expires: 06/20/2022 [facility] Work Phone: Comment on above: Expected: 04/20/2022 , Expires: 06/20/2022 Start: 04-19-2022 COVID-19 VACCINE (#1) COVID-19 VACCI NE (#1) [facility] Comment on above: Postponed from 07/25 (Declined at this time) Start: 04-19-2022 COVID-19 VACCINE (1) COVID-19 VACCIN E (1) [facility] Comment on above: Postponed from 07/25 (Declined at this time) Start: 12-30-2021 Adult depression scr eening assessment DEPRESSION SCREENING [facility] Start: 12-06-2021 Mammography MAMMOGRAM [facility] Start: 11-18-2021 DEPRESSION ASSESSMENT DEPRESSION ASS ESSMENT [facility] Start: 07-19-2021 Influenza vaccination INFLUENZA (#1) [facility] Start: 07-11-2019 Influenza vaccination LUNG CANCER SC REENING [facility] Start: 07-11-2019 Screening for malign ant neoplasm of lung Lung Cancer Screening [facility] Start: 08-27-2018 PNEUMOCOCCAL (2 - PCV) PNEUMOCOCCAL (2 - PCV) [facility] Start: 2013 SHINGRIX VACCINE (1 of 2) DOMINGUEZ GRIX VACCINE (1 of 2) [facility] Start: 12-16-2009 HEPATITIS B (2 of 3 - 3-dose series) HEPATITIS B (2 of 3 - 3-dose series) [facility] Start: 2008 COLOGUARD (FIT-DNA) COLOGUARD (FIT-D NA) [facility] Start: [address] COLONOGRAPHY [facility] Start: 2008 FECAL OCCULT BLOOD FECAL OCCULT BLOO D [facility] Start: 2008 Screening for malign ant neoplasm of colon [facility] Start: 2008 SIGMOIDOSCOPY SIGMOIDOSCOPY [facility] Start: 1993 HPV TESTING HPV TESTING [facility] Start: 1993 Screening for malign ant neoplasm of cervix HPV Testing [facility] Start: 1993 Zoledronic acid therapy ALPHA- 1 ANTITRYPSIN DEFICIENCY SCREENING [facility] Start: 1982 SHINGRIX VACCINE (1 of 2) DOMINGUEZ GRIX VACCINE (1 of 2) [facility] Start: 1982 Urine microalbumin profile [facility] Start: 1981 Anxiety Screening Anxiety Screening [facility] Start: 1981 BP CONTROLLED (<130/80) BP CONTROLLE D (<130/80) [facility] Start: 1981 Depression Screening Depression Scre ening [facility] Start: 1981 HEPATITIS C SCREENING HEPATITIS C SC [place] [facility] Start: 1981 HIV SCREENING HIV SCREENING [facility] Start: 1981 SPIROMETRY SPIROMETRY [facility] Start: 1973 Glaucoma screening Dilated Retinal E xam [facility] Start: 1973 Hepatitis B screening Urine Albumin:Creatinine Ratio [facility] Start: 1968 Covid-19 Vaccine (#1) Covid-19 Vacci ne (#1) [facility] Acid fast bacilli culture [facility] Bacteria identified in Sputum by Culture [facility] Bacteria identified in Urine by Culture URINE CULTURE Microbiology Routine Recurrent UTI (urinary tract infection) 12/27/2023 2:58 PM EST [facility] Work Phone: Bacteria identified in Urine by Culture URINE CULTURE Microbiology Routine Dysuria 06/15/2024 9:13 AM EDT [facility] Work Phone: Bacteria identified in Urine by Culture BACTERIAL CULTURE, URINE Microbiology Routine Recurrent UTI (urinary tract infection) 06/10/2025 3:05 PM EDT [facility] Work Phone: COVID & INFLUENZA A/ B & RSV PCR, ROUTINE COVID & INFLUENZA A/B & RSV PCR, ROUTINE Microbiology Routine Acute cough 12/07/2024 1:16 PM EST [facility] CT Chest [facility] CT Chest WO contrast [facility] Cytology report of B lance fluid Cyto stain [facility] End: 05-20-2024 DBT Breast - bilateral screening [facility] Work Phone: Comment on above: ONCE for 1 Occurrenc es starting 05/20/2024 until 05/20/2024 End: 06-13-2026 DBT Breast - bilateral screening NARINDER SCREENING W ORI Radiology Routine Encounter for screening mammogram for breast cancer 1 Occurrences starting 05/14/2025 until 06/13/2026 [facility] Work Phone: Comment on above: 1 Occurrences starti ng 05/14/2025 until 06/13/2026 End: 06-11-2025 DXA Bone density quantitative measurement panel BMD BODY COMPOSITION STUDY Radiology Routine Osteopenia of lumbar spine Postmenopausal 1 Occurrences starting 05/12/2024 until 06/11/2025 [facility] Work Phone: Comment on above: 1 Occurrences starti ng 05/12/2024 until 06/11/2025 End: 05-20-2024 DXA Skeletal system.axial Views for bone density [facility] Work Phone: Comment on above: ONCE for 1 Occurrenc es starting 05/20/2024 until 05/20/2024 End: 04-03-2025 ECG COMPLETE ECG COMPLETE ECG Routine Chronic chest pain 1 Occurrences starting 04/03/2024 until 04/03/2025 [facility] Work Phone: Comment on above: 1 Occurrences starti ng 04/03/2024 until 04/03/2025 End: 03-15-2026 EGD DIAGNOSTIC EGD DIAGNOSTIC Endoscopy Routine GERD without esophagitis 1 Occurrences starting 03/15/2025 until 03/15/2026 [facility] Comment on above: 1 Occurrences starti ng 03/15/2025 until 03/15/2026 End: 02-15-2024 NARINDER SCREENING NARINDER SCREENING Radiology Routine Encounter for screening mammogram for breast cancer 1 Occurrences starting 01/16/2023 until 02/15/2024 [facility] Work Phone: Comment on above: 1 Occurrences starti ng 01/16/2023 until 02/15/2024 End: 06-11-2025 MG Breast Screening NARINDER SCREENING Radiology Routine Breast cancer screening by mammogram 1 Occurrences starting 05/12/2024 until 06/11/2025 [facility] Comment on above: 1 Occurrences starti ng 05/12/2024 until 06/11/2025 Mycobacterium sp identified in Unspecified specimen by Organism specific culture [facility] PAP TEST PAP TEST Lab [facility] Screening for vaginal cancer 05/14/2025 11:05 AM EDT [facility] Patient referral [facility] Work Phone: End: 07-30-2022 Radex spine thoracic 3 views [facility] Work Phone: Comment on above: 1 Occurrences starti ng 07/30/2022 until 07/30/2022 End: 03-15-2026 Screening colonoscopy COLONOSCOPY SCREENING Endoscopy Routine History of colonic polyps 1 Occurrences starting 03/15/2025 until 03/15/2026 [facility] Work Phone: Comment on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 (Heart disease) Mother other (Lung cancer) Mother Mother - from lung and brain cancer other (Brain Cancer) Mother Stroke Mother COPD Father Father - from COPD Kidney Disease Brother Diabetes Brother Diabetes Brother other (Liver disease) Brother Brain Cancer Maternal Uncle other (Diabetes mellitus) Maternal Grandmother other (Diabetes mellitus) Other Brother Clotting Disorder No Family History Anesthesia Problems No Family History Malig Hyperthermia No Family History Social History Tobacco Use Smoking status: Some Days Current packs/day: 1.00 Average packs/day: 1 pack/day for 52.3 years (52.3 ttl pk-yrs) Types: Cigarettes Start date: 11/18/1972 Last attempt to quit: 10/24/2023 Smokeless tobacco: Never Vaping Use Vaping status: Never Used Substance Use Topics Alcohol use: Not Currently Drug use: Yes Types: Marijuana Comment: gummies only Review of Systems Constitutional: Negative for appetite change, chills, fatigue, fever and unexpected weight change. HENT: Negative for congestion, ear pain, rhinorrhea and sore throat. Eyes: Negative for pain, discharge, itching and visual disturbance. Respiratory: Positive for cough and shortness of breath. Negative for wheezing. Cardiovascular: Negative for chest pain, palpitations and leg swelling. Gastrointestinal: Negative for abdominal pain, constipation, diarrhea, nausea and vomiting. Genitourinary: Negative for difficulty urinating. Musculoskeletal: Positive for arthralgias, back pain and gait problem. Skin: Negative for rash. Neurological: Negative for dizziness, tremors, weakness and headaches. Psychiatric/Behavioral: Negative for dysphoric mood and sleep disturbance. The patient is not nervous/anxious. Objective BP 120/72 Pulse 97 Temp 98.8 Ht 5' 6" (1.68m) Wt 205 lb (93.0kg) SpO2 95% BMI 33.10 kg/(m^2). Physical Exam GENERAL: NAD, alert and oriented. SKIN: Unremarkable, no rash or skin lesions. HEAD: Normocephalic. EYES: PERRLA, EOMI, conjunctiva clear. EARS: External ears normal, canals clear, TM's normal. NOSE/SINUSES: Nares normal. Septum midline. OROPHARYNX: Lips, mucosa, and tongue normal, good dentition. No oral lesions noted. NECK: Supple, no lymphadenopathy, normal thyroid, no carotid bruits. LUNGS: Clear to auscultation bilaterally, diminished, no wheezes/rhonchi/rales. HEART: Regular rate and rhythm, no murmurs. No ectopy. EXTREMITIES: Normal, no deformities, no skin discoloration, no edema. NEURO: Awake, alert and oriented x3, cranial nerves II-XII grossly intact, normal gait, no involuntary motions. Labs: (03/18/2025) - WBC: 18 10 / L - Hemoglobin: 14.3 g/dL - Hematocrit: 44.8% - Platelets: 272 10 / L - Sodium: 138 mmol/L - Potassium: 4.3 mmol/L - Chloride: 103 mmol/L - CO2: 20.8 mmol/L - BUN: 14 mg/dL - Creatinine: 0.73 mg/dL - Glucose: 175 mg/dL Imaging: - CTA Chest: Negative for pulmonary embolism; complete left lower lobe consolidation/collapse noted. Tests: (03/18/2025) Bronchoscopy: - Therapeutic suctioning of mucus plug - Pathology negative for malignancy Assessment/Plan: 1. Community acquired pneumonia, unspecified laterality (J18.9) Recent hospitalization from March 17 to March 19, 2025, for shortness of breath. Treated for recurrent mucus plugging with community-acquired pneumonia. CTA of chest was negative for pulmonary embolism but showed complete left lower lobe consolidation/collapse. Bronchoscopy performed on March 18 with mucus plug removal. Treated with 7 days of antibiotics and aggressive pulmonary hygiene. Continue monitoring respiratory status. Follow-up with [facility]. 2. Chronic respiratory failure with hypoxia (HCC) (J96.11) Pulmonary emphysema, unspecified emphysema type (HCC) (J43.9) Patient is on home oxygen at 3 L/min via nasal cannula. Recent hospitalization required increased oxygen support, but returned to baseline after mucus plug removal. Scheduled for PFT on April 22 to assess lung function and qualify for pulmonary rehab. Low-dose CT scan planned to check for opacities. Currently using Trelegy Ellipta for COPD management. - Continue home oxygen therapy at 3 L/min. - Continue Trelegy Ellipta as prescribed. - Follow-up with [facility] for PFT and low-dose CT scan. 3. Cervical radiculopathy (M54.12) Radiculopathy due to lumbar intervertebral disc disorder (M51.16) Patient has discontinued [place] and is managing pain with gabapentin 400 mg TID and CBD gummies. Reports better pain control with CBD gummies compared to [place]. - Continue gabapentin 400 mg TID. Ordered a 90-day supply to [facility]. - Monitor pain levels and adjust treatment as necessary. 4. Psoriasis (L40.9) Patient considering discontinuation of Skyrizi due to concerns about increased infection risk. Prioritizing respiratory health over psoriasis management. - Follow-up with tenter for alternative psoriasis treatments. 5. Nicotine dependence, cigarettes, uncomplicated (F17.210) Patient is actively trying to quit smoking. Currently taking Wellbutrin to aid in smoking cessation. Has a goal to quit by the next appointment in June. - Continue Wellbutrin as prescribed. - Encourage smoking cessation efforts and provide support as needed. - Follow-up in June to assess progress. Liudmila Olivera APRN.FAST FOOD CASHIER documented in this encounter [facility] 03-26-2025 Telephone encounter Note [employer] fax form . Filled out some info . Needs signature and faxed back. Placed in red folder. Fariba Chino MA [facility] 03-26-2025 Miscellaneous Notes [employer] fax form . Filled out some info . Needs signature and faxed back. Placed in red folder. Fariba Chino MA documented in this encounter [facility] 03-22-2025 Note HNO ID: [id number] Author: FANY HASSAN LPN Service: ? Author Type: LICENSED NURSE Type: Progress Notes Filed: 03/22/2025 13:52 Note Text: TRANSITIONAL CARE MANAGEMENT (TCM) COMMUNITY MONITORING PROGRAM - [facility] Provider Action/FYI: SUMMARY: Pt discharged from [facility] on 03/19/2025. Admitted for: Acute on Chronic respiratory faulure with hypoxemia Patient seen Inpatient GEOVANY Visit? No. Patient seen ICARE Program? No. Contact made with patient: Yes Hi my name is Fany Hassan LPN and I am calling from the [facility] on behalf of your PCP, Liudmila Olivera APRN.FAST FOOD CASHIER I understand you were recently in the hospital so I am calling to check in with you to ensure you are feeling well now that you?re home. Do you mind if I ask you a few questions related to your hospital stay and well-being Yes Contact with patient post discharge, spoke to Patient. Patient identified by name and . Do you feel your health is BETTER, WORSE, or the SAME since leaving the hospital? Better ACTION TAKEN: Patient indicated symptoms are better or same, no action required. Continue outreach. MEDICATIONS: Many patients have questions or concerns about their medications once they are home. Do you have any questions about taking your medications or which medication you should be on? No Do you need any medication refills at this time, including any of the medications you might take only when needed? No ACTION TAKEN: No action required For RNs or Pharmacy completing outreach ONLY, was a medication review completed? N/A SOCIAL: We would like to make sure you have what you need so that your basics needs are met - including your personal safety. HEALTH LEADS SCREENING TOOL QUESTIONS: Do you often feel you lack companionship? No Do you ever need help reading or understanding hospital materials? No In the last 12 months, have you changed how you take medications to save money? No In the past 12 months, has lack of transportation kept you from medical appointments, work or getting things you need like food, or supplies? No In the last 12 months, did you ever eat less than you felt you should because there wasn't enough money for food? No During the winter, do you anticipate having a problem paying your heating bill? No In the next 2 months, are you worried you might not have stable housing? No Would you like to speak with a social work instrument repairer steam plant to help give you support for any of these needs? N/A It can be normal to feel anxious or down during a time like this. Would you like to talk to a mental health professional about how you have been feeling? No ACTION TAKEN: No action taken DISCHARGE INTRUCTIONS: Your discharge instructions / After Visit Summary (AVS) are important in guiding you through the recovery process. Do you have any questions related to your discharge instructions? No Do you have all the necessary equipment and supplies at home? Yes ACTION TAKEN: No action required WRAP AROUND SERVICES: N/A Patient educated on importance of primary care provider follow up visit as well as specialty provider follow up visits as indicated. Inform the patient that if they have any questions or concerns prior to that appointment, to call their Primary Care Provider 's office right away. Primary care provider first education provided. I would like to help you schedule a hospital follow-up virtual or telephone visit with your PCP. ACTION TAKEN: [facility] Primary Care Provider Visit Scheduled: Yes - Appt date: 04/09/2025 with Liudmila Olivera CNP Your doctor would like us to remind you of the recommendations regarding the coronavirus (Covid19) outbreak: Avoid public places as much as possible. Avoid close contact (within 6 feet) with others you don't live with, especially if they are sick. Stay home if you are sick. Wash your hands regularly for at least 20 seconds with soap and water. Wear a cloth mask in public places to help reduce community spread. Do not go to your Doctor's office unless instructed to do so. For any non-emergency symptoms, call your Doctor's office to get instructions on how to manage (we might recommend a telephone or virtual visit). For emergency symptoms, proceed to Emergency Department as usual but inform them of cough and fever symptoms LUCIUS if present (or call on the way if possible). [facility] 03-22-2025 History of Presen t illness Narrative TRANSITIONAL CARE MANAGEMENT (TCM) COMMUNITY MONITORING PROGRAM - [facility] Provider Action/FYI: SUMMARY: Pt discharged from [facility] on 03/19/2025. Admitted for: Acute on Chronic respiratory faulure with hypoxemia Patient seen Inpatient GEOVANY Visit? No. Patient seen ICARE Program? No. Contact made with patient: Yes Hi my name is Fany Hassan LPN and I am calling from the [facility] on behalf of your PCP, Liudmila Olivera APRN.FAST FOOD CASHIER I understand you were recently in the hospital so I am calling to check in with you to ensure you are feeling well now that you re home. Do you mind if I ask you a few questions related to your hospital stay and well-being Yes Contact with patient post discharge, spoke to Patient. Patient identified by name and . Do you feel your health is BETTER, WORSE, or the SAME since leaving the hospital? Better ACTION TAKEN: Patient indicated symptoms are better or same, no action required. Continue outreach. MEDICATIONS: Many patients have questions or concerns about their medications once they are home. Do you have any questions about taking your medications or which medication you should be on? No Do you need any medication refills at this time, including any of the medications you might take only when needed? No ACTION TAKEN: No action required For RNs or Pharmacy completing outreach ONLY, was a medication review completed? N/A SOCIAL: We would like to make sure you have what you need so that your basics needs are met - including your personal safety. HEALTH LEADS SCREENING TOOL QUESTIONS: Do you often feel you lack companionship? No Do you ever need help reading or understanding hospital materials? No In the last 12 months, have you changed how you take medications to save money? No In the past 12 months, has lack of transportation kept you from medical appointments, work or getting things you need like food, or supplies? No In the last 12 months, did you ever eat less than you felt you should because there wasn't enough money for food? No During the winter, do you anticipate having a problem paying your heating bill? No In the next 2 months, are you worried you might not have stable housing? No Would you like to speak with a social work instrument repairer steam plant to help give you support for any of these needs? N/A It can be normal to feel anxious or down during a time like this. Would you like to talk to a mental health professional about how you have been feeling? No ACTION TAKEN: No action taken DISCHARGE INTRUCTIONS: Your discharge instructions / After Visit Summary (AVS) are important in guiding you through the recovery process. Do you have any questions related to your discharge instructions? No Do you have all the necessary equipment and supplies at home? Yes ACTION TAKEN: No action required WRAP AROUND SERVICES: N/A Patient educated on importance of primary care provider follow up visit as well as specialty provider follow up visits as indicated. Inform the patient that if they have any questions or concerns prior to that appointment, to call their Primary Care Provider 's office right away. Primary care provider first education provided. I would like to help you schedule a hospital follow-up virtual or telephone visit with your PCP. ACTION TAKEN: [facility] Primary Care Provider Visit Scheduled: Yes - Appt date: 04/09/2025 with Liudmila Olivera CNP Your doctor would like us to remind you of the recommendations regarding the coronavirus (Covid19) outbreak: Avoid public places as much as possible. Avoid close contact (within 6 feet) with others you don't live with, especially if they are sick. Stay home if you are sick. Wash your hands regularly for at least 20 seconds with soap and water. Wear a cloth mask in public places to help reduce community spread. Do not go to your Doctor's office unless instructed to do so. For any non-emergency symptoms, call your Doctor's office to get instructions on how to manage (we might recommend a telephone or virtual visit). For emergency symptoms, proceed to Emergency Department as usual but inform them of cough and fever symptoms LUCIUS if present (or call on the way if possible). documented in this encounter [facility] 03-22-2025 Note Patient Outreach (AG FAMPLE) SARAY SIMON ([id number]) 1965 F Date Time Provider Department 03/22/25 LIUDMILA OLIVERA During your visit today, we recorded the following information about you: Fany Hassan LPN 03/22/2025 1:52 PM Signed TRANSITIONAL CARE MANAGEMENT (TCM) COMMUNITY MONITORING PROGRAM - [facility] Provider Action/FYI: SUMMARY: Pt discharged from [facility] on 03/19/2025. Admitted for: Acute on Chronic respiratory faulure with hypoxemia Patient seen Inpatient GEOVANY Visit? No. Patient seen ICARE Program? No. Contact made with patient: Yes Hi my name is Fany Hassan LPN and I am calling from the [facility] on behalf of your PCP, Liudmila Olivera APRN.FAST FOOD CASHIER I understand you were recently in the hospital so I am calling to check in with you to ensure you are feeling well now that you?re home. Do you mind if I ask you a few questions related to your hospital stay and well-being Yes Contact with patient post discharge, spoke to Patient. Patient identified by name and . Do you feel your health is BETTER, WORSE, or the SAME since leaving the hospital? Better ACTION TAKEN: Patient indicated symptoms are better or same, no action required. Continue outreach. MEDICATIONS: Many patients have questions or concerns about their medications once they are home. Do you have any questions about taking your medications or which medication you should be on? No Do you need any medication refills at this time, including any of the medications you might take only when needed? No ACTION TAKEN: No action required For RNs or Pharmacy completing outreach ONLY, was a medication review completed? N/A SOCIAL: We would like to make sure you have what you need so that your basics needs are met - including your personal safety. HEALTH LEADS SCREENING TOOL QUESTIONS: Do you often feel you lack companionship? No Do you ever need help reading or understanding hospital materials? No In the last 12 months, have you changed how you take medications to save money? No In the past 12 months, has lack of transportation kept you from medical appointments, work or getting things you need like food, or supplies? No In the last 12 months, did you ever eat less than you felt you should because there wasn't enough money for food? No During the winter, do you anticipate having a problem paying your heating bill? No In the next 2 months, are you worried you might not have stable housing? No Would you like to speak with a social work instrument repairer steam plant to help give you support for any of these needs? N/A It can be normal to feel anxious or down during a time like this. Would you like to talk to a mental health professional about how you have been feeling? No ACTION TAKEN: No action taken DISCHARGE INTRUCTIONS: Your discharge instructions / After Visit Summary (AVS) are important in guiding you through the recovery process. Do you have any questions related to your discharge instructions? No Do you have all the necessary equipment and supplies at home? Yes ACTION TAKEN: No action required WRAP AROUND SERVICES: N/A Patient educated on importance of primary care provider follow up visit as well as specialty provider follow up visits as indicated. Inform the patient that if they have any questions or concerns prior to that appointment, to call their Primary Care Provider 's office right away. Primary care provider first education provided. I would like to help you schedule a hospital follow-up virtual or telephone visit with your PCP. ACTION TAKEN: TCM Primary Care Provider Visit Scheduled: Yes - Appt date: 04/09/2025 with Liudmila Olivera CNP Your doctor would like us to remind you of the recommendations regarding the coronavirus (Covid19) outbreak: Avoid public places as much as possible. Avoid close contact (within 6 feet) with others you don't live with, especially if they are sick. Stay home if you are sick. Wash your hands regularly for at least 20 seconds with soap and water. Wear a cloth mask in public places to help reduce community spread. Do not go to your Doctor's office unless instructed to do so. For any non-emergency symptoms, call your Doctor's office to get instructions on how to manage (we might recommend a telephone or virtual visit). For emergency symptoms, proceed to Emergency Department as usual but inform them of cough and fever symptoms LUCIUS if present (or call on the way if possible). Allergies As of Date: 03/22/2025 Noted Allergy Reaction NICOTINE 05/08/2018 4 - Hives ADHESIVE TAPE-SILICONES 11/03/2024 2 - Rash Comments: rash CARAFATE (SUCRALFATE) 01/15/2020 5 - Intolerance Comments: Nausea/stomach upset CIPROFLOXACIN 06/28/2016 5 - Intolerance Comments: nausea CLARITHROMYCIN 01/17/2017 8 - GI Upset DOXYCYCLINE HCL 03/25/2023 8 - GI U (more content not included)... [facility] 03-19-2025 Telephone encounter Note [facility] to be filled out . Placed in red folder. Fariba Chino MA [facility] 03-19-2025 Miscellaneous Notes Received fax from [facility] requesting form to be filled out . Placed in red folder. Fariba Chino MA documented in this encounter [facility] 03-19-2025 Note [facility] Medical Records Department [address] [place] [address] Discharge Summary 03/19/25 1031 MR#: [id number] Acct: [id number] Name: SARAY SIMON Rep #: [id number] : 1965 59 From: Kel Murphy DO PCP: FELIX Pepe Status:DIS IN Location: [facility] [id number] Providers Date of Admission: 03/17/25 Date of Discharge: 03/19/25 Primary Care Physician: FELIX Pepe Consultations 03/17/25 11:46 Consult: Sliver Cutter / Pulmonary Medicine Routine Consulting Provider: Intensivists/Pulmonary Med Reason for Consult: recurrent mucus plugging EMERGENT Consult: No MD Notified: Yes Date Notified: 03/17/25 Time Notified: 11:23 Method of Notification: Text Reason For Visit: SOB SUSPECTED 2/2 TO MUCUS PLUGGING Diagnosis Discharge Diagnosis (1) Acute on chronic respiratory failure with hypoxemia: Status: Chronic Code(s): J96.21 - Acute and chronic respiratory failure with hypoxia Medications at Discharge Home Medications lovastatin 40 mg tablet 80 mg PO QHS 06/19/18 pramipexole 1 mg tablet 1 mg PO BID 09/19/20 ipratropium 0.5 mg-albuterol 3 mg (2.5 mg base)/3 mL nebulization soln 3 ml inhalation Q4H PRN PRN SOB /OR WHEEZING #180 mL 12/18/22 docusate sodium 100 mg capsule 200 mg PO DAILY 06/27/23 gabapentin 400 mg capsule 400 mg PO TID Pain 06/27/23 montelukast 10 mg tablet 10 mg PO QHS 06/27/23 furosemide 40 mg tablet 40 mg PO QDAY 03/13/24 metformin 500 mg tablet 500 mg PO BID 11/02/24 albuterol sulfate 90 mcg/actuation aerosol inhaler 2 inh inhalation Q4-6H PRN shortness of breath or wheezing #8.5 grams 03/02/25 bupropion HCl 150 mg tablet,12 hr sustained-release (Wellbutrin SR) 150 mg PO BID #60 ea 03/02/25 fluticasone fur. 100 mcg-umeclid 62.5 mcg-vilant 25 mcg inhalat.powder (Trelegy Ellipta) 1 inh inhalation Q24H #60 ea 03/02/25 hydrocodone-acetaminophen 5-325mg 5mg-325mg 1 tab PO DAILY PRN pain 03/02/25 aspirin 81 mg tablet,delayed release (Adult Aspirin Regimen) 81 mg PO DAILY 03/17/25 conjugated estrogens 0.625 mg/gram vaginal cream (Premarin) 0.625 mg vaginal QWEEK 03/17/25 lansoprazole 30 mg capsule,delayed release 30 mg PO DAILY 03/17/25 levothyroxine 125 mcg tablet 125 mcg PO DAILY hypothyroid 03/17/25 omega 4-aab-czg-fish oil 300 mg-1,000 mg capsule (Fish Oil) 1 cap PO BID 03/17/25 levofloxacin 750 mg tablet 750 mg PO DAILY 5 days #5 tabs 03/19/25 Hospital Course Operations None Procedures Bronchoscopy, EKG and - (Chest x-ray, CTA chest) Summary of Care Provided Minutes Spent on Discharge: 35 Hospital Course: Patient is a 59-year-old female who presented to [facility] ED on 03/17/25 with acute onset shortness of breath. Hospital course as noted below. Patient discharged home in stable condition on 03/19. 1. Recurrent mucous plugging with community-acquired pneumonia in setting of severe COPD/emphysema with chronic hypoxic respiratory failure ??? Pulmonology followed. Presentation was most consistent with recurrent mucous plugging; had similar hospitalization in June 2024 with bronchoscopy required to relieve mucous plugging. CTA chest showed no PE, did show a virtually complete left lower lobe consolidation/collapse concerning for recurrent mucous plugging versus pneumonia. Bronchoscopy on 03/18 with mucous plug removed with therapeutic suctioning. Per pulmonology, will treat with 7-day course of antibiotics total and continue aggressive pulmonary hygiene on discharge. No need for further steroids on discharge. Completed oxygen testing on day of discharge and did not require more than her home 2 L nasal cannula at rest and with exertion. Will have close outpatient follow-up with phonology in the office after discharge. 2. Tobacco use disorder ??? Denied need for NRT while inpatient. Continue home bupropion on discharge. Chronic medical conditions: ??? Class I obesity: BMI 32 on admit. Complicated hospital course, care and prognosis. ??? Seasonal allergies: Continue home Singulair. ??? Hypothyroidism: Continue home Synthroid. ??? GERD: Continue home PPI. ??? Hyperlipidemia: Continue home statin. ??? Restless leg syndrome: Continue home pramipexole. ??? Lumbar radiculopathy: Continue home hydrocodone???acetaminophen as needed and scheduled gabapentin. ??? Type 2 diabetes mellitus: Treated with sliding scale insulin with meals while inpatient with good glucose control. Okay to resume home metformin on discharge. Total clinical time spent by myself addressing the patient's medical issues, reviewing all the data, and collaborating with patient's care team: 35 minutes. Physical Exam Const alert, oriented x3 and no apparent distress Constitutional Narrative: Upper middle-aged female, class I obesity, appears older than stated age, energy improved from admission, sitting up comfortably in bed, conversing nor (more content not included)... [facility] 03-17-2025 Discharge summary [facility] 03-17-2025 Radiology Diagnostic study note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 95.2 kg Body Mass Index (BMI) 33.8 Intake & Output: Intake and Output for Last 24 Hours 06/27/23 06/28/23 06/29/23 23:59 23:59 23:59 Intake Total 350 / 350 606.5 / 606.5 Balance 350 / 350 606.5 / 606.5 Lab / Micro Data 06/29/23 07:09 06/29/23 07:09 Labs: Laboratory Results - last 24 hr 06/28/23 17:23: MRSA (PCR) Negative 06/28/23 : Fluid Neutrophils 100 06/29/23 07:09: WBC 14.2 H, RBC 5.08, Hgb 15.0, Hct 50.3 H, MCV 99.0, MCH 29.5, MCHC 29.8 L, RDW Std Deviation 62.6 H, RDW Coeff of Brandy 16.9 H, Plt Count 234, MPV 12.2 H, Immature Gran % (Auto) 0.500, Neut % (Auto) 82.0 H, Lymph % (Auto) 12.6 L, Sedgwick % (Auto) 4.7, Eos % (Auto) 0.1, Baso % (Auto) 0.1, Absolute Neuts (auto) 11.6 H, Absolute Lymphs (auto) 1.79, Nucleated RBC % 0, Sodium 140, Potassium 3.9, Chloride 108 H, Carbon Dioxide 28.0, Anion Gap 4 L, BUN 15, Creatinine 0.74, Estim Creat Clear Calc 76.63, Est GFR (MDRD) Af Amer 104, Est GFR (MDRD) Non-Af 86, BUN/Creatinine Ratio 20.4 H, Glucose 92, Calcium 9.2, Phosphorus 3.7, Magnesium 2.7 H, Total Bilirubin 0.50, AST 13 L, ALT 35, Alkaline Phosphatase 67, Total Protein 7.6, Albumin 3.9, Globulin 3.7, Albumin/Globulin Ratio 1.1 Micro: Microbiology 06/28/23 Unknown Bronchial Lavage - Left Lower Lobe Gram Stain - Final 06/28/23 Unknown Bronchial Lavage - Left Lower Lobe Respiratory Culture - Preliminary Appears to be normal respiratory collins. Further studies to follow. 06/29/23 02:00 Sputum, Expectorated/Coughed Gram Stain - Preliminary 06/29/23 02:14 Urine, Clean Catch Streptococcus pneumoniae Antigen (M - Final 06/29/23 02:14 Urine, Clean Catch Legionella Antigen - Final 06/28/23 14:50 Mucosa - Nose Respiratory Panel (PCR) - Final Physical Exam Const alert, oriented x3, no apparent distress and well nourished Constitutional Narrative: Obese, middle-aged, white female, sitting up on the edge of the bed playing cards with her , appears comfortable and nontoxic, at bedside HEENT head/scalp atraumatic and moist oral mucous membranes HEENT Narrative: Mallampati 3, no thrush Head and Scalp: normocephalic Resp normal respiratory effort, no retractions and no use of accessory muscles Resp Narrative: Diffusely diminished bases, much improved aeration in the left base without any abdomen sounds noted today Auscultation: Negative for crackles, rhonchi or wheezes Cardio regular rate, regular rhythm, S1 normal heart sound, S2 normal heart sound, no murmurs, no rub, no gallops and no clicks GI normal to inspection, nondistended, normoactive bowel sounds and soft to palpation Extremity no clubbing, cyanosis or edema Extremity Narrative: Pedal pulses are 2+ Neuro oriented x3, moves all extremities and no focal motor deficits Speech: speech normal Psych affect normal Psych Narrative: Very pleasant, eye contact is good, interacts appropriately Assessment & Plan Assessment/Plan (1) Acute on chronic respiratory failure with hypoxia: (2) Moderate COPD (chronic obstructive pulmonary disease): (3) Leukocytosis: (4) Erythrocytosis: PLAN: Plan Acute on chronic hypoxic respiratory failure secondary to pneumonia -Continue Pseudomonas -Continue aggressive pulmonary toilet -Continue with continuous pulse oximetry -Continue I-S and Pep therapy -Add Mucinex 1200 p.o. twice daily -Continue methylprednisolone 40 every 8 -Patient is chronically on 2 L supplemental cannula -Patient has been weaned to 2 L at rest but did require 6 L with exertion -Will reassess ambulatory pulse ox tomorrow -BiPAP as needed and nocturnally -Bronchoscopy done on 06/28/2023 and noted mucous plugging of the left lower lobewith BAL and culture sent--> all are currently pending -Strep pneumo and Legionella antigens are negative -Pulmonary medicine following-appreciate input Leukocytosis -Likely related to the above -Procalcitonin is unremarkable -Continue antibiotics -Await finalization of cultures Erythrocytosis -Resolved COPD -PFTs done recently show moderate disease -Patient is on triple therapy inhalers -Chronically O2 dependent on 2 L -Follows as an outpatient with pulmonary medicine -Will need outpatient follow-up after discharge Hypothyroidism -Continue home levothyroxine Seasonal allergies -Continue home Singulair GERD -Continue home PPI Hyperlipidemia -Continue home statin next 1 restless leg syndrome -Continue Mirapex Psoriasis -Hold home injectable Lumbar radiculopathy -Continue home chronic pain medication DVT prophylaxis -Enoxaparin daily CODE STATUS Full code Charges/Coding Visit Charges Inpatient E&M: 22343 Subs Hosp L2 06/29/23 1241 <Electronically signed by Maritza Carcamo DO> Cosigner Signature (if applicable): CC: ~ Signed [facility] Work Phone: 1(921) 134-588208-12-2023 Progress note Author Jose F Chang [facility] June 29, 2023 6:51am Note Date/Time June 29, 2023 6: 52am [facility] Medical Records Department [address] [place] [address] Progress Note - Sliver Cutter 06/29/23 0648 MR#: [id number] Acct: [id number] Name: SARAY SIMON Rep #:[id number] : 1965 57 From: Jose F Bernardo GREENE PCP: Liudmila Olivera, REMOTE ADVISOR-C Status:ADM IN Location: [place] [id number]- [id number] Assessment & Plan Assessment/Plan (1) Acute on chronic respiratory failure with hypoxia: (2) Moderate COPD (chronic obstructive pulmonary disease): PLAN: Plan RECOMMENDATIONS: 1. Wean supplemental oxygen to maintain saturations at or above 90%. 2. Continue empiric antimicrobials, pending finalized culture results. 3. Continue bronchodilators and steroids as ordered. 4. Continue aggressive bronchopulmonary hygiene. 5. Possible discharge tomorrow pending clinical course. IMPRESSIONS: 1. Acute on chronic hypoxemic respiratory failure Outside hospital imaging demonstrated left lower lobe atelectasis, which appeared to be secondary to mucous plugging/pneumonia, following bronchoscopy. The patient has significant bilateral emphysematous changes along with moderate obstructive lung disease based upon PFTs. Therefore, I agree with continuing antibiotics, bronchodilators and steroids. Continue aggressive bronchopulmonaryhygiene, in the interim. The patient has improved significantly from a breathing perspective following bronchoscopy yesterday. Continue supportive measures. 2. History of chronic tobacco dependency/obstructive sleep apnea with PAP noncompliance Continue supportive measures as noted above. Tobacco cessation counseling was provided. Recommend empiric BiPAP therapy with naps and nightly. 3. History of hypertension/hyperlipidemia/hypothyroidism/GERD Complicates care, management, recovery and prognosis. Continue home medicationsas indicated. This note was generated with [employer] dictation software. It may contain incorrectwords, spelling, and punctuation that were not noted in checking the note beforesigning. Subjective Subjective The patient was seen and examined at the bedside this morning. Events from the last 24 hours have been reviewed. The patient is currently afebrile, hemodynamically stable and maintaining appropriate oxygen saturations on 4 L/minvia nasal cannula. The patient reported significant interval improvement in herbreathing quality following bronchoscopy yesterday. She does continue to have acough that is productive of sputum. Objective Data Objective Data The patient's most recent lab work, culture data and imaging studies have all been personally reviewed. Left lower lobe BAL results are pending. Vital Signs: Vital Signs Temp Pulse Resp BP Pulse Ox O2 Del Method O2 Flow Rate 98 F 76 16 128/68 H 96 High Flow 8 06/29/23 02:52 06/29/23 02:52 06/29/23 02:52 06/29/23 02:52 06/29/23 02:52 06/29/23 02:52 06/29/23 02:52 FiO2 40 06/28/23 21:50 Oxygen Flow Rate (L/min) 8 Oxygen Delivery Method High Flow Weight: 209 lb 14.081 oz Body Mass Index (BMI) 33.8 Intake & Output: Intake and Output for Last 24 Hours 06/27/23 06/28/23 06/29/23 23:59 23:59 23:59 Intake Total 350 / 350 236.5 / 236.5 Balance 350 / 350 236.5 / 236.5 Lab / Micro Data Attestation: I reviewed the patient's lab results. 06/28/23 05:52 06/28/23 05:52 Labs: Laboratory Results - last 24 hr 06/28/23 06:55: PT 13.5, INR 1.0, APTT 33.6, Procalcitonin < 0.04 06/28/23 17:23: MRSA (PCR) Negative 06/28/23 : Fluid Source BRONCHIAL LAVAGE, Fluid Color COLORLESS, Fluid Appearance SL CLDY, Fluid WBC 1045, Fluid RBC 175, Fluid Tot Cell Count TNP, Fluid Neutrophils 100, Fl Pathologist Comment May follow, Fluid Comment 2 Not Reportable Micro: Microbiology 06/29/23 02:00 Sputum, Expectorated/Coughed Gram Stain - Preliminary 06/29/23 02:14 Urine, Clean Catch Streptococcus pneumoniae Antigen (M - Final 06/29/23 02:14 Urine, Clean Catch Legionella Antigen - Final 06/28/23 14:50 Mucosa - Nose Respiratory Panel (PCR) - Final 06/28/23 Unknown Bronchial Lavage - Left Lower Lobe Gram Stain - Final Radiography Diagnostic Testing: Radiology Impression Chest X-Ray 06/28/23 06:30 IMPRESSION: Left basilar airspace consolidation and atelectasis suggests pneumonia. Electronically Signed: Seble Angulo MD at 6:56 EDT , Physical Exam Const alert, oriented x3 and no apparent distress General Appearance: cooperative HEENT normocephalic, head/scalp atraumatic and moist oral mucous membranes Eyes PERRL, EOMs intact bilaterally and conjunctivae normal Neck supple General: trachea midline Chest inspection of chest normal Resp normal respiratory effort Resp Narrative: Improved air movement in the left lung base. Auscultation: diminished lung sounds Cardio regular rate and regular rhythm GI normal to inspection, nondistended, normoactive bowel sounds Extremity no clubbing, cyanosis or edema Skin no rashes or lesions noted Neuro oriented x3, CN's II-XII intact bilaterally and moves all extremities Psych cooperative and affect normal Charges/Coding Visit Charges Inpatient E&M: 51278 Subs Hosp L2 06/29/23 0651 <Electronically signed by Jose F Chang DO> Cosigner Signature (if applicable): CC: ~ Signed [facility] Work Phone: 1(639) 624-222808-11-2023 Progress note Author Maritza Carcamo [facility] June 28, 2023 11:38am Note Date/Time June 28, 2023 8: 27am [facility] Medical Records Department [address] [place] [address] Progress Note - Hospitalist 06/28/23 0815 MR#: [id number] Acct: [id number] Name: SARAY SIMON Rep #:[id number] : 1965 57 From: Maritza Carcamo DO PCP: FELIX Pepe Status:ADM IN Location: [place] [address] Reason for Visit Reason for Visit: Shortness of breath Subjective Subjective Ms. Simon is a 57-year-old white female who presented to outside facility at [place] emergency department with shortness of breath and chest discomfort which began on the day of presentation. She has baseline moderate COPD and chronic hypoxic respiratory failure and requires 2 L of supplemental oxygen per minute at baseline. She follows in the pulmonary medicine clinic and is maintained on triple therapy inhaler regimen. The patient still has been smoking but states she now intends to quit. The CT of her chest was obtained at the outside facility and there was no evidence of pulmonary embolism however significant bilateral emphysematous changes were noted along with left lower lobe atelectasis of unclear etiology. Request for transfer was made as she follows with pulmonary medicine here and upon admission she was placed on antibiotics, bronchodilators and steroids. She was maintained on BiPAP therapy overnight andhas subsequently been transferred to heated high flow nasal cannula this morningand is currently on 10 L. Pulmonary medicine has already evaluated her today and plans on performing a bronchoscopy this morning and recommended continuationof aggressive bronchopulmonary hygiene as well as bronchodilators and steroids. Dr. Chang ordered MRSA screen and strep pneumo and Legionella antigens. States she is feeling a little bit better. She just returned from bronchoscopy where mucous plug was removed from her left lower lobe. She is pleased to hear that she had no obstructing mass or lesion. She states she plans on quitting smoking and states she has done. No current issues. Is asking if she can eat lunch. Objective Data Objective Data Vital Signs: Vital Signs Temp Pulse Resp BP Pulse Ox O2 Del Method O2 Flow Rate 97.7 F L 68 17 135/78 H 93 High Flow 10 06/28/23 07:20 06/28/23 07:20 06/28/23 07:20 06/28/23 07:20 06/28/23 07:20 06/28/23 07:20 06/28/23 07:20 FiO2 55 06/28/23 03:17 Oxygen Flow Rate (L/min) 10 Oxygen Delivery Method High Flow Weight: 95.2 kg Body Mass Index (BMI) 33.8 Lab / Micro Data 06/28/23 05:52 06/28/23 05:52 Labs: Laboratory Results - last 24 hr 06/28/23 05:52: WBC 14.5 H, RBC 5.04, Hgb 15.1 H, Hct 49.0 H, MCV 97.2, MCH 30.0, MCHC 30.8 L, RDW Std Deviation 60.8 H, RDW Coeff of Brandy 17.0 H, Plt Count 230, MPV 11.8, Immature Gran % (Auto) 0.600, Neut % (Auto) 85.4 H, Lymph % (Auto) 9.9 L, [place] % (Auto) 3.9, Eos % (Auto) 0.1, Baso % (Auto) 0.1, Absolute Neuts (auto) 12.4 H, Absolute Lymphs (auto) 1.44, Nucleated RBC % 0, Sodium 140,Potassium 3.9, Chloride 109 H, Carbon Dioxide 26.0, Anion Gap 5, BUN 11, Creatinine 0.79, Estim Creat Clear Calc 71.78, Est GFR (MDRD) Af Amer 95, Est GFR (MDRD) Non-Af 79, BUN/Creatinine Ratio 13.9, Glucose 120 H, Calcium 9.4 06/28/23 06:55: PT 13.5, INR 1.0, APTT 33.6 Radiography Diagnostic Testing: Radiology Impression Chest X-Ray 06/28/23 06:30 IMPRESSION: Left basilar airspace consolidation and atelectasis suggests pneumonia. Electronically Signed: Seble Angulo MD at 6:56 EDT Reading Location ID and State: [id number] [facility] , Service support , Physical Exam Const alert, oriented x3, no apparent distress and well nourished Constitutional Narrative: Obese, middle-aged, white female, sitting up in bed, appears comfortable and nontoxic, at bedside HEENT head/scalp atraumatic and moist oral mucous membranes HEENT Narrative: Mallampati 2-3, no thrush Head and Scalp: normocephalic Resp normal respiratory effort, no retractions and no use of accessory muscles Resp Narrative: Diminished in apices bilaterally, mild diminishment at right base, left base open with few inspiratory crackles that dissipate with repeat repetitive inspiration, currently on 10 L heated high flow nasal cannula Auscultation: crackles; Negative for rhonchi or wheezes Cardio regular rate, regular rhythm, S1 normal heart sound, S2 normal heart sound, no murmurs, no rub, no gallops and no clicks GI normal to inspection, nondistended, normoactive bowel sounds and soft to palpation Extremity no clubbing, cyanosis or edema Extremity Narrative: Pedal pulses are 2+ Neuro oriented x3, moves all extremities and no focal motor deficits Speech: speech normal Psych affect normal Psych Narrative: Very pleasant, eye contact is good, interacts appropriately Assessment & Plan Assessment/Plan (1) Acute on chronic respiratory failure with hypoxia: (2) Moderate COPD (chronic obstructive pulmonary disease): (3) Leukocytosis: (4) Erythrocytosis: PLAN: Plan Acute on chronic hypoxic respiratory failure -Etiology is currently unknown however treating for pneumonia at this time -Will transition ceftriaxone to Zosyn to cover Pseudomonas with concerns of postobstructive disease -Continue aggressive pulmonary toilet -Continue with continuous pulse oximetry -Continue I-S and Pep therapy -Add Mucinex 1200 p.o. twice daily -Continue methylprednisolone 40 every 8 -Patient is chronically on 2 L supplemental cannula -Currently requiring 10 L heated high flow -Wean as able -BiPAP as needed and nocturnally -Bronchoscopy today at 8:30 AM -Pulmonary medicine following-appreciate input Leukocytosis -Likely related to the above -Procalcitonin is pending -Continue antibiotics -Will obtain BAL via bronchoscopy and await culture result Erythrocytosis -Anticipate this is chronic however no previous labs available -Repeat CBC in a.m. COPD -PFTs done recently show moderate disease -Patient is on triple therapy inhalers -Chronically O2 dependent on 2 L -Follows as an outpatient with pulmonary medicine -Will need outpatient follow-up after discharge Hypothyroidism -Continue home levothyroxine Seasonal allergies -Continue home Singulair GERD -Continue home PPI Hyperlipidemia -Continue home statin next 1 restless leg syndrome -Continue Mirapex Psoriasis -Hold home injectable Lumbar radiculopathy -Continue home chronic pain medication DVT prophylaxis -Enoxaparin daily CODE STATUS Full code Charges/Coding Visit Charges Inpatient E&M: 62403 Subs Hosp L2 06/28/23 1138 <Electronically signed by Maritza Carcamo DO> Cosigner Signature (if applicable): CC: ~ Signed [facility] Work Phone: 1(443) 238-244008-11-2023 Procedure [facility] 06-28-2023 Consult note Author Jose F Chang [facility] June 28, 2023 7:05am Note Date/Time June 28, 2023 7: 01am [facility] Medical Records Department [address] [place] [address] Consultation - Sliver Cutter 06/28/23 0652 MR#: [id number] Acct: [id number] Name: SARAY SIMON Rep #:[id number] : 1965 57 From: Jose F Chang DO PCP: FELIX Pepe Status:ADM IN Location: [place] [address] Assessment & Plan Assessment/Plan (1) Acute on chronic respiratory failure with hypoxia: (2) Moderate COPD (chronic obstructive pulmonary disease): PLAN: Plan RECOMMENDATIONS: 1. Wean supplemental oxygen to maintain saturations at or above 90%. 2. Continue empiric antimicrobials. 3. Check MRSA screen. Check strep and urine Legionella antigens. 4. Continue bronchodilators and steroids as ordered. 5. Continue aggressive bronchopulmonary hygiene. 6. Proceed with bronchoscopy this morning as scheduled. 7. Check coagulation profile. IMPRESSIONS: 1. Acute on chronic hypoxemic respiratory failure Outside hospital imaging demonstrated left lower lobe atelectasis of unclear etiology. The differential would certainly include mucous plugging versus endobronchial lesion. The patient has significant bilateral emphysematous changes along with moderate obstructive lung disease based upon PFTs. Therefore, I agree with continuing antibiotics, bronchodilators and steroids. Continue aggressive bronchopulmonary hygiene, in the interim. Will obtain follow-up chest x-ray this morning. Continue to wean supplemental oxygen to maintain saturations at or above 90%. There are tentative plans to proceed with airway evaluation via bronchoscopy this morning at 8:45 AM. Risks and benefits of the proposed procedure were discussed with the patient. She is in agreement to proceed. 2. History of chronic tobacco dependency/obstructive sleep apnea with PAP noncompliance Continue supportive measures as noted above. Tobacco cessation counseling was provided. Recommend empiric BiPAP therapy with naps and nightly. 3. History of hypertension/hyperlipidemia/hypothyroidism/GERD Complicates care, management, recovery and prognosis. Continue home medicationsas indicated. This note was generated with [employer] dictation software. It may contain incorrectwords, spelling, and punctuation that were not noted in checking the note beforesigning. HPI Consult Data Date of Consult: 06/28/23 HPI Narrative Reason for Consultation: Acute on chronic respiratory failure HPI Narrative: The patient is a 57-year-old female, with a history as outlined below, who initially presented as a transfer of care on June 27 from [facility] with shortness of breath and chest discomfort, which began yesterday. The patient does have a baseline history of moderate obstructive lung disease and chronic hypoxemic respiratory failure with a 2 L/min requirement. She is currently followed in the pulmonary medicine clinic and is maintained on a triple therapy inhaler regimen on an outpatient basis. The patient has still been smoking cigarettes, but reported it is her intention to quit completely now. As part of her outside hospital workup, a CT chest with contrast was obtained. There was no evidence for pulmonary embolism. Significant bilateral emphysematous changes were noted along with left lower lobe atelectasis of unclear etiology. Upon admission here at [facility], the patient was initiated on antibiotics, bronchodilators and steroids. She was maintained on BiPAP therapy overnight and subsequently transition to nasal cannula oxygen this morning. Thepatient did report that she has had a cough which is now productive of yellow sputum. She is otherwise clinically stable from a respiratory perspective. Thepatient reported compliance with her prescribed outpatient inhaler regimen. Shedoes report interval improvement in her shortness of breath and chest discomfortthis morning. [facility] Medical History (Updated 06/27/23 @ 15:[address] Daniel Claire MD) Abnormal CT scan, chest Acute bronchitis Aortic valve regurgitation Back pain Brachial (cervical) neuritis Bronchospasm Chronic headaches Chronic obstructive lung disease Chronic pain Confusional state Cough DDD (degenerative disc disease) Dyslipidemia Dyspnea Dysuria Essential hypertension Frontal lobe deficit GERD (gastroesophageal reflux disease) Heavy tobacco smoker Hyperlipidemia Hypothyroidism Lumbar radiculopathy On home oxygen therapy Other director long term care (current) drug therapy Pneumothorax of left lung after biopsy Smoker Spinal stenosis in cervical region Suprapubic pain Thyroid nodule Urinary incontinence Home Medications hydrocodone 7.5 mg-acetaminophen 325 mg tablet ([place]) 1 tab PO Q6H PRN pain 06/19/18 [History Last Taken 06/27/23] levothyroxine 75 mcg tablet (Synthroid) See Rx Instructions PO QDAY 06/19/18 [History Last Taken Unknown] lovastatin 40 mg tablet 80 mg PO QHS 06/19/18 [History Last Taken Unknown] polyethylene glycol 3350 17 gram/dose oral powder (Miralax) 17 g PO DAILY PRN constipation 06/19/18 [History Last Taken Unknown] ranitidine HCl 150 mg tablet (Zantac) 150 mg PO QDAY 06/19/18 [History Last Taken Unknown] tizanidine 4 mg capsule (Zanaflex) 4 mg PO TID PRN muscle spasticity 06/19/18 [History Last Taken Unknown] pramipexole 1 mg tablet 1 mg PO BID 09/19/20 [History Last Taken 06/27/23] albuterol sulfate 90 mcg/actuation aerosol inhaler (Proventil HFA) 2 puff inhalation Q4H PRN shortness of breath or wheezing #18 grams 11/20/21 [Rx Last Taken Unknown] bupropion HCl 150 mg tablet,12 hr sustained-release (Wellbutrin SR) 150 mg PO BID 05/14/22 [History Last Taken Unknown] ipratropium 0.5 mg-albuterol 3 mg (2.5 mg base)/3 mL nebulization soln 3 ml inhalation Q4H PRN PRN SOB &/OR WHEEZING #180 mL 12/18/22 [Rx Last Taken Unknown] fluticasone fur. 200 mcg-umeclid 62.5 mcg-vilant 25 mcg inhalat.powder (Trelegy Ellipta) 1 inh inhalation DAILY #60 ea 01/15/23 [Rx Last Taken Unknown] docusate sodium 100 mg capsule 200 mg PO DAILY 06/27/23 [History Last Taken 06/26/23] furosemide 20 mg tablet 20 mg PO DAILY 06/27/23 [History Last Taken 06/27/23] gabapentin 400 mg capsule 400 mg PO TID 06/27/23 [History Last Taken 06/27/23] levothyroxine 100 mcg tablet 100 mcg PO DAILY 06/27/23 [History Last Taken 06/27/23] montelukast 10 mg tablet 10 mg PO QHS 06/27/23 [History Last Taken Unknown] omeprazole 40 mg capsule,delayed release 40 mg PO DAILY 06/27/23 [History Last Taken 06/27/23] potassium chloride 10 mEq tablet,extended release 10 meq PO DAILY 06/27/23 [History Last Taken Unknown] risankizumab-rzaa 150 mg/mL subcutaneous pen injector (Skyrizi) 150 mg subcut .COMPLEX 06/27/23 [History Last Taken Unknown] Allergy/AdvReac Type Severity Reaction Status Date / Time ciprofloxacin Allergy Mild severe Verified 06/27/23 14:29 upset GI clarithromycin Allergy Mild severe Verified 06/27/23 14:29 upset GI fenofibrate Allergy Mild Verified 06/27/23 14:29 nabumetone Allergy Mild Verified 06/27/23 14:29 oxybutynin Allergy Mild Verified 06/27/23 14:29 Sulfa (Sulfonamide Allergy Mild Verified 06/27/23 14:29 Antibiotics) fesoterodine [From Toviaz] AdvReac Mild Other Verified 06/27/23 14:29 Family History Mother Cancer Lung Heart disease CVA (cerebral vascular accident) Father COPD (chronic obstructive pulmonary disease) Brother Diabetes Kidney disease Surgical History History of hysterectomy History of lung biopsy Social History Smoking Status: Current every day smoker tobacco type: cigarettes Tobacco: How many years used: 45 second hand exposure: Yes alcohol intake: never substance use type: does not use caffeine: Yes Type: coffee what type of physical activity do you participate in: other frequency: daily ROS ROS Narrative 10 systems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 History of Past illness Narrative* Problem Noted Date Resolved Date Urinary tract infection with hematuria 8 09/26/2019 documented as of this encounter (statuses as of 06/18/2022) [address]24-2018 History of Past illness Narrative* Problem Noted Date Resolved Date Urinary tract infection with hematuria 8 09/26/2019 documented as of this encounter (statuses as of 06/22/2022) [address] History of Past illness Narrative* Problem Noted Date Resolved Date Urinary tract infection with hematuria 8 09/26/2019 documented as of this encounter (statuses as of 06/25/2022) [address]24-2018 History of Past illness Narrative* Problem Noted Date Resolved Date Urinary tract infection with hematuria 8 09/26/2019 documented as of this encounter (statuses as of 07/02/2022) [address]24-2018 History of Past illness Narrative* Problem Noted Date Resolved Date Urinary tract infection with hematuria 8 09/26/2019 documented as of this encounter (statuses as of 07/13/2022) [address]24-2018 History of Past illness Narrative* Problem Noted Date Resolved Date Urinary tract infection with hematuria 8 09/26/2019 documented as of this encounter (statuses as of 07/16/2022) [address]24-2018 History of Past illness Narrative* Problem Noted Date Resolved Date Urinary tract infection with hematuria 8 09/26/2019 documented as of this encounter (statuses as of 07/16/2022) [address]24-2018 History of Past illness Narrative* Problem Noted Date Resolved Date Urinary tract infection with hematuria 8 09/26/2019 documented as of this encounter (statuses as of 07/31/2022) [address]24-2018 History of Past illness Narrative* Problem Noted Date Resolved Date Urinary tract infection with hematuria 8 09/26/2019 documented as of this encounter (statuses as of 08/03/2022) [address]24-2018 History of Past illness Narrative* Problem Noted Date Resolved Date Urinary tract infection with hematuria 8 09/26/2019 documented as of this encounter (statuses as of 08/06/2022) [address]24-2018 History of Past illness Narrative* Problem Noted Date Resolved Date Urinary tract infection with hematuria 8 09/26/2019 documented as of this encounter (statuses as of 08/20/2022) [address]24-2018 History of Past illness Narrative* Problem Noted Date Resolved Date Urinary tract infection with hematuria 8 09/26/2019 documented as of this encounter (statuses as of 08/24/2022) [address] History of Past illness Narrative* Problem Noted Date Resolved Date Urinary tract infection with hematuria 8 09/26/2019 documented as of this encounter (statuses as of 08/27/2022) [address] History of Past illness Narrative* Problem Noted Date Resolved Date Urinary tract infection with hematuria 8 09/26/2019 documented as of this encounter (statuses as of 08/27/2022) [address]24-2018 History of Past illness Narrative* Problem Noted Date Resolved Date Urinary tract infection with hematuria 8 09/26/2019 documented as of this encounter (statuses as of 08/29/2022) [address] History of Past illness Narrative* Problem Noted Date Resolved Date Urinary tract infection with hematuria 8 09/26/2019 documented as of this encounter (statuses as of 08/31/2022) [address] History of Past illness Narrative* Problem Noted Date Resolved Date Urinary tract infection with hematuria 8 09/26/2019 documented as of this encounter (statuses as of 09/03/2022) [address] History of Past illness Narrative* Problem Noted Date Resolved Date Urinary tract infection with hematuria 8 09/26/2019 documented as of this encounter (statuses as of 09/07/2022) [address] History of Past illness Narrative* Problem Noted Date Resolved Date Urinary tract infection with hematuria 8 09/26/2019 documented as of this encounter (statuses as of 09/07/2022) [place] [address] History of Past illness Narrative* Problem Noted Date Resolved Date Urinary tract infection with hematuria 8 09/26/2019 documented as of this encounter (statuses as of 09/10/2022) [address] History of Past illness Narrative* Problem Noted Date Resolved Date Urinary tract infection with hematuria 8 09/26/2019 documented as of this encounter (statuses as of 09/10/2022) [place] [address] History of Past illness Narrative* Problem Noted Date Resolved Date Urinary tract infection with hematuria 8 09/26/2019 documented as of this encounter (statuses as of 09/17/2022) [address] History of Past illness Narrative* Problem Noted Date Resolved Date Urinary tract infection with hematuria 8 09/26/2019 documented as of this encounter (statuses as of 09/17/2022) [address] History of Past illness Narrative* Problem Noted Date Resolved Date Urinary tract infection with hematuria 8 09/26/2019 documented as of this encounter (statuses as of 09/21/2022) [place] [address] History of Past illness Narrative* Problem Noted Date Resolved Date Urinary tract infection with hematuria 8 09/26/2019 documented as of this encounter (statuses as of 09/24/2022) [address] History of Past illness Narrative* Problem Noted Date Resolved Date Urinary tract infection with hematuria 8 09/26/2019 documented as of this encounter (statuses as of 09/24/2022) [address] History of Past illness Narrative* Problem Noted Date Resolved Date Urinary tract infection with hematuria 8 09/26/2019 documented as of this encounter (statuses as of 10/10/2022) [address] History of Past illness Narrative* Problem Noted Date Resolved Date Urinary tract infection with hematuria 8 09/26/2019 documented as of this encounter (statuses as of 11/06/2022) [address] History of Past illness Narrative* Problem Noted Date Resolved Date Urinary tract infection with hematuria 8 09/26/2019 documented as of this encounter (statuses as of 11/20/2022) [address] History of Past illness Narrative* Problem Noted Date Resolved Date Urinary tract infection with hematuria 8 09/26/2019 documented as of this encounter (statuses as of 11/22/2022) [address] History of Past illness Narrative* Problem Noted Date Resolved Date Urinary tract infection with hematuria 8 09/26/2019 documented as of this encounter (statuses as of 11/27/2022) [address] History of Past illness Narrative* Problem Noted Date Resolved Date Urinary tract infection with hematuria 8 09/26/2019 documented as of this encounter (statuses as of 01/02/2023) [address] History of Past illness Narrative* Problem Noted Date Resolved Date Urinary tract infection with hematuria 8 09/26/2019 documented as of this encounter (statuses as of 01/03/2023) [address] History of Past illness Narrative* Problem Noted Date Resolved Date Urinary tract infection with hematuria 8 09/26/2019 documented as of this encounter (statuses as of 01/14/2023) [address]24-2018 History of Past illness Narrative* Problem Noted Date Resolved Date Urinary tract infection with hematuria 8 09/26/2019 documented as of this encounter (statuses as of 01/20/2023) [address]24-2018 History of Past illness Narrative* Problem Noted Date Resolved Date Urinary tract infection with hematuria 8 09/26/2019 documented as of this encounter (statuses as of 01/23/2023) [address] History of Past illness Narrative* Problem Noted Date Resolved Date Urinary tract infection with hematuria 8 09/26/2019 documented as of this encounter (statuses as of 02/19/2023) [address]24-2018 History of Past illness Narrative* Problem Noted Date Resolved Date Urinary tract infection with hematuria 8 09/26/2019 documented as of this encounter (statuses as of 02/19/2023) [address]24-2018 History of Past illness Narrative* Problem Noted Date Resolved Date Urinary tract infection with hematuria 8 09/26/2019 documented as of this encounter (statuses as of 03/07/2023) [address]24-2018 History of Past illness Narrative* Problem Noted Date Resolved Date Urinary tract infection with hematuria 8 09/26/2019 documented as of this encounter (statuses as of 03/07/2023) [address]24-2018 History of Past illness Narrative* Problem Noted Date Resolved Date Urinary tract infection with hematuria 8 09/26/2019 documented as of this encounter (statuses as of 03/12/2023) [address] History of Past illness Narrative* Problem Noted Date Resolved Date Urinary tract infection with hematuria 8 09/26/2019 documented as of this encounter (statuses as of 03/19/2023) [address] History of Past illness Narrative* Problem Noted Date Resolved Date Urinary tract infection with hematuria 8 09/26/2019 Uterine cancer 10/27/2018 03/25/2023 documented as of this encounter (statuses as of 03/26/2023) [address] History of Past illness Narrative* Problem Noted Date Resolved Date Urinary tract infection with hematuria 8 09/26/2019 Uterine cancer 10/27/2018 03/25/2023 documented as of this encounter (statuses as of 03/28/2023) [facility] History of Past illness Narrative* Problem Noted Date Resolved Date Urinary tract infection with hematuria 8 09/26/2019 Uterine cancer 10/27/2018 03/25/2023 documented as of this encounter (statuses as of 05/03/2023) [facility] History of Past illness Narrative* Problem Noted Date Resolved Date Urinary tract infection with hematuria 8 09/26/2019 Uterine cancer 10/27/2018 03/25/2023 documented as of this encounter (statuses as of 05/07/2023) [facility] History of Past illness Narrative* Problem Noted Date Resolved Date Urinary tract infection with hematuria 8 09/26/2019 Uterine cancer 10/27/2018 03/25/2023 documented as of this encounter (statuses as of 05/20/2023) [facility] History of Past illness Narrative* Problem Noted Date Diagnosed Date Resolved Date Urinary tract infection with hematuria 11/10/2018 09/26/2019 Uterine cancer 10/27/2018 03/25/2023 documented as of this encounter (statuses as of 07/01/2023) [facility] Narrative* Problem Noted Date Diagnosed Date Resolved Date Urinary tract infection with hematuria 11/10/2018 09/26/2019 Uterine cancer 10/27/2018 03/25/2023 documented as of this encounter (statuses as of 07/05/2023) [facility] of Past [facility] Narrative* Problem Noted Date Diagnosed Date Resolved Date Urinary tract infection with hematuria 11/10/2018 09/26/2019 Uterine cancer 10/27/2018 03/25/2023 documented as of this encounter (statuses as of 07/29/2023) [facility] of Past illness Narrative* Problem Noted Date Diagnosed Date Resolved Date Urinary tract infection with hematuria 11/10/2018 09/26/2019 Uterine cancer 10/27/2018 03/25/2023 documented as of this encounter (statuses as of 07/30/2023) [facility]arrative* Problem Noted Date Diagnosed Date Resolved Date Urinary tract infection with hematuria 11/10/2018 09/26/2019 Uterine cancer 10/27/2018 03/25/2023 documented as of this encounter (statuses as of 07/31/2023) [facility] Narrative* Problem Noted Date Diagnosed Date Resolved Date Urinary tract infection with hematuria 11/10/2018 09/26/2019 Uterine cancer 10/27/2018 03/25/2023 documented as of this encounter (statuses as of 08/02/2023) [facility] Past [facility] Narrative* Problem Noted Date Diagnosed Date Resolved Date Urinary tract infection with hematuria 11/10/2018 09/26/2019 Uterine cancer 10/27/2018 03/25/2023 documented as of this encounter (statuses as of 09/11/2023) [facility] Narrative* Problem Noted Date Diagnosed Date Resolved Date Urinary tract infection with hematuria 11/10/2018 09/26/2019 Uterine cancer 10/27/2018 03/25/2023 documented as of this encounter (statuses as of 09/13/2023) [facility] Past [facility] Narrative* Problem Noted Date Diagnosed Date Resolved Date Urinary tract infection with hematuria 11/10/2018 09/26/2019 Uterine cancer 10/27/2018 03/25/2023 documented as of this encounter (statuses as of 10/04/2023) [facility] History of Past illness Narrative* Problem Noted Date Diagnosed Date Resolved Date Urinary tract infection with hematuria 11/10/2018 09/26/2019 Uterine cancer 10/27/2018 03/25/2023 documented as of this encounter (statuses as of 10/25/2023) [facility] Narrative* Problem Noted Date Diagnosed Date Resolved Date Urinary tract infection with hematuria 11/10/2018 09/26/2019 Uterine cancer 10/27/2018 03/25/2023 documented as of this encounter (statuses as of 10/30/2023) [facility]12-24-2018 History of Past illness Narrative* Problem Noted Date Diagnosed Date Resolved Date Urinary tract infection with hematuria 11/10/2018 09/26/2019 Uterine cancer 10/27/2018 03/25/2023 documented as of this encounter (statuses as of 12/28/2023) [address]24-2018 History of Past illness Narrative* Problem Noted Date Diagnosed Date Resolved Date Urinary tract infection with hematuria 11/10/2018 09/26/2019 Uterine cancer 10/27/2018 03/25/2023 documented as of this encounter (statuses as of 12/30/2023) [address]24-2018 History of Past illness Narrative* Problem Noted Date Diagnosed Date Resolved Date Urinary tract infection with hematuria 11/10/2018 09/26/2019 Uterine cancer 10/27/2018 03/25/2023 documented as of this encounter (statuses as of 01/04/2024) [address]24-2018 History of Past illness Narrative* Problem Noted Date Diagnosed Date Resolved Date Urinary tract infection with hematuria 11/10/2018 09/26/2019 Uterine cancer 10/27/2018 03/25/2023 documented as of this encounter (statuses as of 01/06/2024) [address]24-2018 History of Past illness Narrative* Problem Noted Date Diagnosed Date Resolved Date Urinary tract infection with hematuria 11/10/2018 09/26/2019 Uterine cancer 10/27/2018 03/25/2023 documented as of this encounter (statuses as of 01/06/2024) [address]24-2018 History of Past illness Narrative* Problem Noted Date Diagnosed Date Resolved Date Urinary tract infection with hematuria 11/10/2018 09/26/2019 Uterine cancer 10/27/2018 03/25/2023 documented as of this encounter (statuses as of 01/20/2024) [address]24-2018 History of Past illness Narrative* Problem Noted Date Diagnosed Date Resolved Date Urinary tract infection with hematuria 11/10/2018 09/26/2019 Uterine cancer 10/27/2018 03/25/2023 documented as of this encounter (statuses as of 01/21/2024) [address]24-2018 History of Past illness Narrative* Problem Noted Date Diagnosed Date Resolved Date Urinary tract infection with hematuria 11/10/2018 09/26/2019 Uterine cancer 10/27/2018 03/25/2023 documented as of this encounter (statuses as of 01/23/2024) [facility]12-24-2018 History of Past illness Narrative* Problem Noted Date Diagnosed Date Resolved Date Urinary tract infection with hematuria 11/10/2018 09/26/2019 Uterine cancer 10/27/2018 03/25/2023 documented as of this encounter (statuses as of 01/27/2024) [facility]12-24-2018 History of Past illness Narrative* Problem Noted Date Diagnosed Date Resolved Date Urinary tract infection with hematuria 11/10/2018 09/26/2019 Uterine cancer 10/27/2018 03/25/2023 documented as of this encounter (statuses as of 01/27/2024) [facility]12-24-2018 History of Past illness Narrative* Problem Noted Date Diagnosed Date Resolved Date Urinary tract infection with hematuria 11/10/2018 09/26/2019 Uterine cancer 10/27/2018 03/25/2023 documented as of this encounter (statuses as of 02/25/2024) [facility]12-24-2018 History of Past illness Narrative* Problem Noted Date Diagnosed Date Resolved Date Urinary tract infection with hematuria 11/10/2018 09/26/2019 Uterine cancer 10/27/2018 03/25/2023 documented as of this encounter (statuses as of 02/27/2024) [facility] Maritza Carcamo [facility] June 30, 2023 10:59am Note Date/Time June 30, 2023 10 :44am [facility] Medical Records Department [address] [place] [id number] Discharge Summary 06/30/23 1043 MR#: [id number] Acct: [id number] Name: SARAY SIMON Rep #:[id number] : 1965 57 From: Maritza Carcamo DO PCP: FELIX Pepe Status:ADM IN Location: [place] [id number] Providers Date of Admission: 06/27/23 Date of Discharge: 06/30/23 Primary Care Physician: FELIX Pepe Consultations 06/27/23 15:23 Consult: Sliver Cutter / Pulmonary Medicine Routine Consulting Provider: Pulmonary Medicine [facility] Reason for Consult: LLL collapse EMERGENT Consult: No MD Notified: Yes Date Notified: 06/27/23 Time Notified: 15:56 Method of Notification: Text Reason For Visit: COPD EXACERBATION Diagnosis Discharge Diagnosis (1) Acute on chronic respiratory failure with hypoxia: Status: Chronic Code(s): J96.21 - Acute and chronic respiratory failure with hypoxia (2) Moderate COPD (chronic obstructive pulmonary disease): Status: Chronic Code(s): J44.9 - Chronic obstructive pulmonary disease, unspecified Medications at Discharge Home Medications hydrocodone 7.5 mg-acetaminophen 325 mg tablet ([place]) 1 tab PO Q6H PRN pain 06/19/18 lovastatin 40 mg tablet 80 mg PO QHS 06/19/18 polyethylene glycol 3350 17 gram/dose oral powder (Miralax) 17 g PO DAILY PRN constipation 06/19/18 pramipexole 1 mg tablet 1 mg PO BID 09/19/20 ipratropium 0.5 mg-albuterol 3 mg (2.5 mg base)/3 mL nebulization soln 3 ml inhalation Q4H PRN PRN SOB &/OR WHEEZING #180 mL 12/18/22 fluticasone fur. 200 mcg-umeclid 62.5 mcg-vilant 25 mcg inhalat.powder (Trelegy Ellipta) 1 inh inhalation DAILY #60 ea 01/15/23 docusate sodium 100 mg capsule 200 mg PO DAILY 06/27/23 furosemide 20 mg tablet 20 mg PO DAILY 06/27/23 gabapentin 400 mg capsule 400 mg PO TID 06/27/23 levothyroxine 100 mcg tablet 100 mcg PO DAILY 06/27/23 montelukast 10 mg tablet 10 mg PO QHS 06/27/23 omeprazole 40 mg capsule,delayed release 40 mg PO DAILY 06/27/23 potassium chloride 10 mEq tablet,extended release 10 meq PO DAILY 06/27/23 risankizumab-rzaa 150 mg/mL subcutaneous pen injector (Skyrizi) 150 mg subcut .COMPLEX 06/27/23 levofloxacin 750 mg tablet 750 mg PO DAILY #5 tabs 06/30/23 prednisone 20 mg tablet 40 mg (2 x 20 mg) PO DAILY #10 tabs 06/30/23 Hospital Course Operations None Procedures Bronchoscopy and - (Chest x-ray) Summary of Care Provided Minutes Spent on Discharge: 37 Hospital Course: Ms. Simon is a 57-year-old white female who presented to outside facility at [place] emergency department with shortness of breath and chest discomfort which began on the day of presentation. She has baseline moderate COPD and chronic hypoxic respiratory failure and requires 2 L of supplemental oxygen per minute at baseline. She follows in the pulmonary medicine clinic and is maintained on triple therapy inhaler regimen. The patient still has been smoking but states she now intends to quit. The CT of her chest was obtained at the outside facility and there was no evidence of pulmonary embolism however significant bilateral emphysematous changes were noted along with left lower lobe atelectasis of unclear etiology. Request for transfer was made as she follows with pulmonary medicine here and upon admission she was placed on antibiotics, bronchodilators and steroids. She was maintained on BiPAP therapy overnight andhas subsequently been transferred to heated high flow nasal cannula this morningand is currently on 10 L. Pulmonary medicine has already evaluated her today and plans on performing a bronchoscopy this morning and recommended continuationof aggressive bronchopulmonary hygiene as well as bronchodilators and steroids. She was also maintained on antibiotics and she was initially placed on ceftriaxone and azithromycin but I broadened her out to cover Pseudomonas with Zosyn. She was taken for bronchoscopy on 06/28/2023 and found to have atelectasisof the left lower lobe with copious mucoid secretions in the left lower lobe. Bronchoalveolar lavage was performed and cultures were sent. Her oxygenation improved dramatically throughout the day and she was able to be weaned from 10 Lto 4 L within 24 hours of her bronchoscopy but still required 6 L with exertion. By the a.m. of 06/30/2023 with aggressive bronchopulmonary hygiene, antibiotics,and steroids she was weaned to her baseline 2 L at rest. We did an ambulatory pulse ox and she did require an increase to 3 L to maintain sats greater than 88%. Sputum culture was showing a gram- negative freya at the time of discharge and I will follow these cultures to make sure the antibiotics of which she was discharged will be effective against the organism. She was feeling much better so we discharged home in stable condition with a new prescription for oxygen to reflect her needs noted previously. She was also sent on Levaquin for 5 more days to complete a 7-day course and steroid burst at 40 mg daily. I have asked her to follow-up with her pulmonary medicine doctor within the next 2 weeks for repeat evaluation in her primary care physician within the next month. She was able to be discharged home in stable condition on 06/30/2023. Discharge diagnoses: Acute on chronic hypoxic respiratory failure Mucous plugging causing left lower lobe atelectasis Gram-negative pneumonia Erythrocytosis-resolved leukocytosis-improving COPD Hypothyroidism Seasonal allergies GERD Hyperlipidemia Psoriasis Lumbar radiculopathy Physical Exam Const alert, oriented x3, no apparent distress, no limitations and well nourished Constitutional Narrative: Obese, middle-aged, white female, sitting up on the edge of the bed playing cards with her , appears comfortable and nontoxic, at bedside General Appearance: cooperative, comfortable, well kempt and well developed Orientation / Consciousness: awake, oriented to person, oriented to place and oriented to time Exam Limitations: no limitations Nutritional Appearance: obese HEENT normocephalic, head/scalp atraumatic, hearing grossly normal bilaterally and moist oral mucous membranes HEENT Narrative: Mallampati 2-3, no thrush Eyes PERRL, EOMs intact bilaterally and conjunctivae normal Eyes Narrative: No scleral risks Neck no lymphadenopathy and supple Resp normal respiratory effort, no retractions, no use of accessory muscles and clearto auscultation bilaterally Resp Narrative: Mildly diminished diffusely with worse diminishment at the apices bilaterally Auscultation: Negative for crackles, rhonchi or wheezes Cardio regular rate, regular rhythm, S1 normal heart sound, S2 normal heart sound, no murmurs, no rub, no gallops and no clicks GI normal to inspection, nondistended, normoactive bowel sounds and soft to palpation Extremity no clubbing, cyanosis or edema Extremity Narrative: Pedal pulses are 2+ Skin no rashes or lesions noted, no wounds, skin turgor normal and no jaundice Neuro oriented x3, CN's II-XII intact bilaterally, moves all extremities, no focal motor deficits and no sensory deficits noted Speech: speech normal Psych affect normal Psych Narrative: Very pleasant, eye contact is good, interacts appropriately Weight / BMI Weight Weight: 95.2 kg Body Mass Index (BMI) 33.8 ABG / Lab / Microbiology Data 06/30/23 05:43 06/30/23 05:43 Laboratory: Laboratory Results - last 24 hr 06/30/23 05:43: WBC 11.5 H, RBC 4.90, Hgb 14.6, Hct 47.6 H, MCV 97.1, MCH 29.8, MCHC 30.7 L, RDW Std Deviation 61.1 H, RDW Coeff of Brandy 17.0 H, Plt Count 249, MPV 12.2 H, Immature Gran % (Auto) 0.700, Neut % (Auto) 80.3 H, Lymph % (Auto) 14.5 L, [place] % (Auto) 4.2, Eos % (Auto) 0.1, Baso % (Auto) 0.2, Absolute Neuts (auto) 9.3 H, Absolute Lymphs (auto) 1.67, Nucleated RBC % 0, Sodium 140, Potassium 3.8, Chloride 110 H, Carbon Dioxide 26.0, Anion Gap 4 L, BUN 15, Creatinine 0.81, Estim Creat Clear Calc 70.01, Est GFR (MDRD) Af Amer 92, Est GFR (MDRD) Non-Af 76, BUN/Creatinine Ratio 18.5, Glucose 107 H, Calcium 9.2 Microbiology: Microbiology 06/29/23 02:00 Sputum, Expectorated/Coughed Gram Stain - Final 06/29/23 02:00 Sputum, Expectorated/Coughed Respiratory Culture - Preliminary Gram negative freya 06/28/23 Unknown Bronchial Lavage - Left Lower Lobe Gram Stain - Final 06/28/23 Unknown Bronchial Lavage - Left Lower Lobe Respiratory Culture - Preliminary Yeast Like Organism 06/29/23 02:14 Urine, Clean Catch Streptococcus pneumoniae Antigen (M - Final 06/29/23 02:14 Urine, Clean Catch Legionella Antigen - Final 06/28/23 14:50 Mucosa - Nose Respiratory Panel (PCR) - Final D/C Instructions Discharge Diet: Low fat / Low cholesterol Discharge Activity: Return to Normal Activity Return to work on: 07/01/23 Meaningful Use Info Meaningful Use Diagnoses (Choose all that apply): None applicable Discharge Plan Admission Admit Date/Time: 06/27/23 15:23 Primary Reason for Your Visit: Shortness of Breath Attending Provider: Maritza Carcamo Primary Care Provider: Liudmila Olivera NP Consulting Providers: Paul Bower; Jose F Chang; Carlos Alberto Frausto; Mart Hernandez; Jessi Lindo NP; Daniel Claire Instructions Additional Instructions / Restrictions: 1. Please complete prednisone burst and antibiotics as ordered 2. Call for appointment for pulmonary medicine follow-up as noted below 3. Please continue utilizing your incentive spirometer and Acapella at home after discharge every couple hours while awake 10 times for both 4. Highly encouraged ongoing smoking cessation 5. Please use 2 L of oxygen at rest and 3 L with exertion until instructed otherwise by a physician Discharge Orders/Prescriptions Prescriptions: New prednisone 20 mg tablet 40 mg PO DAILY Qty: 10 0RF levofloxacin 750 mg tablet 750 mg PO DAILY Qty: 5 0RF Continued lovastatin 40 mg tablet 80 mg PO QHS hydrocodone-acetaminophen [[place]] 7.5-325 mg tablet 1 tab PO Q6H PRN (Reason: pain) polyethylene glycol 3350 [Miralax] 17 gram/dose powder 17 g PO DAILY PRN (Reason: constipation) pramipexole 1 mg tablet 1 mg PO BID ipratropium-albuterol 0.5 mg-3 mg(2.5 mg base)/3 mL solution for nebulization 3 ml inhalation Q4H PRN PRN (Reason: SOB &/OR WHEEZING) Qty: 180 6RF gabapentin 400 mg capsule 400 mg PO TID Patient Comments: TAKE 1 CAPSULE BY MOUTH THREE TIMES DAILY FOR 90 DAYS furosemide 20 mg tablet 20 mg PO DAILY Patient Comments: Take 1 tablet by mouth once daily. docusate sodium 100 mg capsule 200 mg PO DAILY Patient Comments: TAKE 1 CAPSULE BY MOUTH 1 (ONE) or 2 (TWO) times a day NEEDED levothyroxine 100 mcg tablet 100 mcg PO DAILY Patient Comments: TAKE 1 TABLET BY MOUTH EVERY DAY montelukast 10 mg tablet 10 mg PO QHS Patient Comments: TAKE 1 TABLET BY MOUTH AT BEDTIME omeprazole 40 mg capsule,delayed release(DR/EC) 40 mg PO DAILY Patient Comments: Take 1 capsule by mouth once daily. potassium chloride 10 mEq tablet extended release 10 meq PO DAILY Skyrizi 150 mg/mL pen injector 150 mg SUBCUT .COMPLEX Rx Instructions: 150 mg subcutaneously every 3 months; Trelegy Ellipta 200-62.5-25 mcg blister with device 1 inh inhalation DAILY Qty: 60 6RF Discontinued levothyroxine [Synthroid] 75 mcg tablet See Rx Instructions PO QDAY Rx Instructions: 100 orally daily; ranitidine HCl [Zantac] 150 mg tablet 150 mg PO QDAY tizanidine [Zanaflex] 4 mg capsule 4 mg PO TID PRN (Reason: muscle spasticity) albuterol sulfate [Proventil HFA] 90 mcg/actuation HFA aerosol inhaler 2 puff INHALATION Q4H PRN (Reason: shortness of breath or wheezing) Qty: 18 11RF bupropion HCl [Wellbutrin SR] 150 mg tablet sustained-release 12 hr 150 mg PO BID Referrals / Follow Up: Paul Bower MD [Med Staff - Active Staff] - See Referral Note (Call tomorrow to schedule appointment to be seen within the next 2 weeks for hospital follow-up status post bronchoscopy) Liudmila Olivera NP, REMOTE ADVISOR-C [Primary Care Provider] - Within 1 Month Disposition Disposition (needs filled in before D/C Order can be placed): Home, Self Care Charges/Coding Visit Charges Inpatient E&M: 08407 Disch Hosp >30min 06/30/23 1059 <Electronically signed by Maritza Carcamo DO> Cosigner Signature (if applicable): CC: FLY-Jessi Olivera; Dr. Maritza Carcamo DO~ Signed [facility] Work Phone: Discharge summary Author Wayne Huagett [facility] Note Date/Time March 17, 2025 11: 28am [facility] Medical Records Department [address] [place] [address] Emergency Department Summary 03/17/25 MR#: [id number] Acct: [id number] Name: SARAY SIMON Rep #:[id number] : 1965 59 From: Wyane Ellington ggett PCP: FELIX Pepe Status:ADM IN Location: [place] [address] HPI History of Present Illness Chief Complaint: Shortness of Breath Narrative Narrative: Chief complaint and HPI: History taken by patient as well as medical record. 59-year-old female with past medical history of COPD, tobacco abuse, HLD presents for evaluation of shortness of breath. Patient recently saw pulmonology on 03/02/2025. Per their office note she was placed on Wellbutrin for smoking cessation as well as placed on trilogy and taken off of Breztri. Patient states that she woke up overnight with shortness of breath. She has taken DuoNebs with little improvement. She denies any fever, chills, URI symptoms, chest pain, abdominal pain, nausea, vomiting. States she has some chest tightness when she takes a deep breath then. Denies a history of DVT/PE, blood clotting disorder, recent trauma or surgery, exogenous estrogen use, unilateral leg swelling, known malignancy, travel. Review of systems: See HPI Medications: As listed on the chart Allergies: As listed on the chart PFSH: Per chart Vital signs: As listed on the chart. Reviewed. Physical exam: Gen: A&O x3, NAD Head: Normocephalic, atraumatic Eyes: No sclera icterus, conjunctiva clear ENT: Moist mucous membranes Neck: Trachea midline, No JVD CV: Tachycardic, regular rhythm, no murmurs, no peripheral edema Resp: Lungs diminished in the bilateral bases with expiratory wheezing, on 5 L nasal cannula GI: Abd soft, non-distended, non-tender, no r/r/g Musc: Full ROM, no deformity Skin: Warm, dry Neuro: Alert, oriented, grossly intact, sensation intact Psych: Cooperative, appropriate mood and [facility] On home oxygen therapy Smoker Moderate COPD (chronic obstructive pulmonary disease) Urinary incontinence Thyroid nodule Suprapubic pain Spinal stenosis in cervical region Pneumothorax of left lung after biopsy Other director long term care (current) drug therapy Lumbar radiculopathy Hyperlipidemia Heavy tobacco smoker Chronic headaches GERD (gastroesophageal reflux disease) Frontal lobe deficit Essential hypertension Dysuria Dyspnea Dyslipidemia DDD (degenerative disc disease) Cough Confusional state Chronic pain Chronic obstructive lung disease Bronchospasm Brachial (cervical) neuritis Back pain Aortic valve regurgitation Acute bronchitis Hypothyroidism Abnormal CT scan, chest Home Medications ?Medication ?Instructions ?Recorded ?Last Taken ?Type lovastatin 40 mg tablet 80 mg PO QHS 06/19/18 History pramipexole 1 mg tablet 1 mg PO BID 09/19/20 5 History ipratropium 0.5 mg-albuterol 3 mg 3 ml inhalation Q4H PRN PRN SOB 12/18/22 03/17/25 Rx (2.5 mg base)/3 mL nebulization &/OR WHEEZING #180 mL soln docusate sodium 100 mg capsule 200 mg PO DAILY 3 03/16/25 History gabapentin 400 mg capsule 400 mg PO TID 06/27/2303/17 History montelukast 10 mg tablet 10 mg PO QHS 06/27/23 History furosemide 40 mg tablet 40 mg PO QDAY 03/13/2403/17 History metformin 500 mg tablet 500 mg PO BID 11/02/2403/17 History albuterol sulfate 90 mcg/actuation 2 inh inhalation Q4 -6H PRN 03/02/25 Unknown Rx aerosol inhaler shortness of breath or wheez ing #8.5 grams bupropion HCl 150 mg tablet,12 hr 150 mg PO BID #60 ea 03/02/25 03/17/25 Rx sustained-release (Wellbutrin SR) fluticasone fur. 100 mcg-umeclid 1 inh inhalation Q24H #60 ea 03/02/25 03/17/25 Rx 62.5 mcg-vilant 25 mcg inhalat.powder (Trelegy Ellipta) hydrocodone-acetaminophen 5-325mg 1 tab PO DAILY PRN p ain 03/02/25 03/17/25 History 5mg-325mg aspirin 81 mg tablet,delayed 81 mg PO DAILY 03/17/25 0 03/17/25 History release (Adult Aspirin Regimen) conjugated estrogens 0.625 mg/gram 0.625 mg vaginal QW SAVOONGA 03/17/25 Unknown History vaginal cream (Premarin) lansoprazole 30 mg capsule,delayed 30 mg PO DAILY 02/1803/17/25 History release levothyroxine 125 mcg tablet 125 mcg PO DAILY 03/17/25 03/17/25 History omega 5-ffe-tsx-fish oil 300 1 cap PO BID 03/17/25 History mg-1,000 mg capsule (Fish Oil) Allergy/AdvReac Type Severity Reaction Status Date / Time ciprofloxacin Allergy Mild severe Verified 03/02/25 08:05 upset GI clarithromycin Allergy Mild severe Verified 03/02/25 08:05 upset GI fenofibrate Allergy Mild Verified 03/02/25 08:05 nabumetone Allergy Mild Verified 03/02/25 08:05 oxybutynin Allergy Mild Verified 03/02/25 08:05 Sulfa (Sulfonamide Allergy Mild Verified 03/02/25 08:05 Antibiotics) fesoterodine (From Toviaz) AdvReac Mild Other Verified 03/02/25 08:05 Family History Mother Cancer Lung Heart disease CVA (cerebral vascular accident) Father COPD (chronic obstructive pulmonary disease) Brother Diabetes Kidney disease Surgical History History of lung biopsy History of hysterectomy Social History Smoking Status: Current every day smoker tobacco type: cigarettes Tobacco: How many years used: 50 second hand exposure: Yes alcohol intake: never substance use type: does not use caffeine: Yes Type: coffee what type of physical activity do you participate in: other frequency: daily EXAM Physical Exam Const Vital Signs: 03/17/25 07:31 03/17/25 07:36 03/17/25 07:38 Temperature 98.9 F 98.9 F Temperature Source Oral Oral Pulse Rate 103 H 101 H Respiratory Rate 18 21 H Respiratory Effort Short of Breath Respiratory Depth Normal Respiratory Pattern Tachypnea Blood Pressure 114/84 H 114/84 H Blood Pressure Mean 94 94 Pulse Ox 95 95 Oxygen Delivery Method Nasal Cannula Nasal Cannula Nasal Cannula Oxygen Flow Rate (L/min) 5 5 5 03/17/25 07:38 03/17/25 07:45 03/17/25 07:45 Temperature Temperature Source Pulse Rate 104 H Respiratory Rate 24 H Respiratory Effort Respiratory Depth Respiratory Pattern Tachypnea Blood Pressure Blood Pressure Mean Pulse Ox 95 Oxygen Delivery Method Nasal Cannula Nasal Cannula Oxygen Flow Rate (L/min) 5 5 03/17/25 07:55 03/17/25 08:25 03/17/25 08:35 Temperature 98.6 F Temperature Source Temporal Pulse Rate 98 78 94 Respiratory Rate 22 H 22 H 20 H Respiratory Effort Respiratory Depth Respiratory Pattern Blood Pressure 127/76 H 124/78 H 124/66 H Blood Pressure Mean 93 93 85 Pulse Ox 91 91 92 Oxygen Delivery Method Nasal Cannula Nasal Cannula Nasal Cannula Oxygen Flow Rate (L/min) 2 3 03/17/25 09:00 03/17/25 10:00 Temperature 98.9 F 98.7 F Temperature Source Oral Oral Pulse Rate 95 92 Respiratory Rate 18 22 H Respiratory Effort Respiratory Depth Respiratory Pattern Blood Pressure 128/73 H 115/72 Blood Pressure Mean 91 86 Pulse Ox 90 89 Oxygen Delivery Method Nasal Cannula Nasal Cannula Oxygen Flow Rate (L/min) 3 3 MDM MDM MDM Narrative Medical decision making narrative: 59-year-old female with past medical history of COPD, tobacco abuse, HLD presents for evaluation of shortness of breath. Patient recently saw pulmonology on 03/02/2025. See HPI. Patient recently had her medications changed. Woke up this morning with shortness of breath. Differential diagnosisincludes but is not limited to COPD exacerbation, pneumonia, viral illness, PE, ACS. 500 cc NS bolus, Solu-Medrol, DuoNebs ordered for symptoms. Laboratory workup ordered. On presentation, patient is needing increased oxygen requirements. Usually on 2-3 L nasal cannula chronically however requiring 5 L nasal cannula given being 80% on 3 L. She is intermittently tachypneic and mildly tachycardic. VBG with metabolic alkalosis. No hypercapnia. Will titrateoxygen down as able. CBC with mild leukocytosis of 12.7 and hemoconcentration. Platelets unremarkable. D-dimer elevated at 1.02. CTA chest ordered to assess for PE. COVID, flu, RSV negative. BMP unremarkable. Lactic acid unremarkable. CTA negative for PE. Patient has virtually complete left lower lobe consolidation/collapse. Preserved enhancement suggest the absence of superimposed significant pneumonia or pneumonitis although early pneumonia is difficult to entirely exclude. Given mucus impacted bronchi in the region, consider aspiration. Borderline right hilar lymphadenopathy nonspecific and potentially reactive in the absence of known malignancy. On chart review, patient has a history of mucous plug in the past in which she required bronchoscopy on 06/28/2023. On chart review this was in the left lower lobe as well. On reevaluation, patient still endorsing shortness of breath however her work of breathing has improved. She was able to be placed back on her baseline 3 L nasal cannula. However given CTA findings, patient will benefit from bronchoscopy. She will be given Unasyn for possible aspiration from the plug. I spoke with the hospitalist service, Dr. Murphy. He recommended me talking to pulmonology prior to admission to make sure that patient will receive bronchoscopy. I spoke with flat locker, agrees with admission and bronchoscopy. Patient will be admitted to the hospitalist service. Patient updated of all results and confirmed understanding of the plan. EKG: Interpreted by me/EM physician: EKG shows sinus tachycardia with nonspecific ST changes. No ST elevation. Heart rate 102. Diagnostic: Interpreted by me/EM physician: Chest x-ray shows vascular congestion. Chronic lung changes with atelectasis/pneumonia of the left lung base. Impression: 1. Acute on chronic hypoxia 2. Complete left lower lobe consolidation/collapse, suspect mucous plug 3. Possible aspiration pneumonia 4. COPD exacerbation Lab Data Labs: Laboratory Results - last 24 hr 03/17/25 07:45 WBC 12.7 H RBC 5.12 Hgb 15.4 H Hct 46.4 MCV 90.6 MCH 30.1 MCHC 33.2 RDW Std Deviation 53.3 H RDW Coeff of Brandy 16.0 H Plt Count 243 MPV 11.3 Immature Gran % (Auto) 0.700 Neut % (Auto) 75.7 H Lymph % (Auto) 17.1 L [place] % (Auto) 4.5 Eos % (Auto) 1.3 Baso % (Auto) 0.7 Absolute Neuts (auto) 9.6 H Absolute Lymphs (auto) 2.17 Nucleated RBC % 0 D-Dimer Quant (PE/DVT) 1.02 H* Sodium 140 Potassium 3.9 Chloride 101 Carbon Dioxide 25.3 Anion Gap 14 BUN 13 Creatinine 0.80 Estim Creat Clear Calc 84.94 Est GFR (MDRD) Non-Af 84 BUN/Creatinine Ratio 16.6 Glucose 111 H Lactic Acid 1.9 Calcium 9.6 Troponin T High Sens < 6 NT pro BNP II < 36 ABG Data ABG results: ABG 03/17/25 07:54 Specimen Type DEEPALI Sample Site Not entered O2 % 5.0 VBG pH 7.44 H VBG pO2 48 H VBG HCO3 27 H VBG Total CO2 28 VBG O2 Sat (Calc) 85 H VBG Base Excess 3 POC Mix VBG pCO2 Pt Tmp 38.9 L O2 Delivery Device Cannula Radiography Diagnostic Testing: Clinical Impression(s) from Imaging Studies Chest X-Ray 03/17/25 08:05 IMPRESSION: There is mild cardiomegaly. Central vascularity appears increased. There is consolidation in the left medial lung base, retrocardiac region. Reading Location: [facility] Chest CTA 03/17/25 08:26 IMPRESSION: 1. No central or definite pulmonary embolism identified allowing for limitationsrelated to contrast timing. 2. Virtually complete LEFT lower lobar consolidation/collapse. Preserved enhancement suggests the absence of superimposed significant pneumonia/pneumonitis although early pneumonia is difficult to entirely exclude. Given mucous impacted bronchi in the region, consider aspiration. Recommend CT chest in 3 months to ensure no underlying central obstructing process as an alternative etiology. Additionally, recommend ongoing lung cancer screening perthe below. 3. Borderline RIGHT hilar lymphadenopathy, nonspecific and potentially reactive in the absence of known malignancy. Attention on above follow-up, which should ideally include IV contrast. 4. Additional description as above. The USPSTF recommends annual screening for lung cancer with low-dose computed tomography (LDCT) in adults aged 50 to 80 years who have a 20 pack-year smoking history and currently smoke or have quit within the past 15 years. Reading Location: [id number] Discharge Plan Triage Chief Complaint: Shortness of Breath ED Provider: Wayne Waterman Dx/Rx/DC Orders Prescriptions: No Action lovastatin 40 mg tablet 80 mg PO QHS pramipexole 1 mg tablet 1 mg PO BID ipratropium-albuterol 0.5 mg-3 mg(2.5 mg base)/3 mL solution for nebulization 3 ml inhalation Q4H PRN PRN (Reason: SOB &/OR WHEEZING) Qty: 180 6RF furosemide 40 mg tablet 40 mg PO QDAY metformin 500 mg tablet 500 mg PO BID hydrocodone-acetaminophen 5-325 mg tablet 1 tab PO DAILY PRN (Reason: pain) Trelegy Ellipta 100-62.5-25 mcg blister with device 1 inh inhalation Q24H Qty: 60 5RF albuterol sulfate 90 mcg/actuation HFA aerosol inhaler 2 inh inhalation Q4-6H PRN (Reason: shortness of breath or wheezing) Qty: 8.55RF bupropion HCl [Wellbutrin SR] 150 mg tablet sustained-release 12 hr 150 mg PO BID Qty: 60 6RF gabapentin 400 mg capsule 400 mg PO TID Patient Comments: TAKE 1 CAPSULE BY MOUTH THREE TIMES DAILY FOR 90 DAYS docusate sodium 100 mg capsule 200 mg PO DAILY Patient Comments: TAKE 1 CAPSULE BY MOUTH 1 (ONE) or 2 (TWO) times a day NEEDED montelukast 10 mg tablet 10 mg PO QHS Patient Comments: TAKE 1 TABLET BY MOUTH AT BEDTIME Premarin 0.625 mg/gram cream 0.625 mg vaginal QWEEK Patient Comments: pt has not started yet levothyroxine 125 mcg tablet 125 mcg PO DAILY lansoprazole 30 mg capsule,delayed release(DR/EC) 30 mg PO DAILY aspirin [Adult Aspirin Regimen] 81 mg tablet,delayed release (DR/EC) 81 mg PO DAILY omega 2-tvl-icn-fish oil [Fish Oil] 300-1,000 mg capsule 1 cap PO BID Primary Care Provider: Liudmila Olivera NP Referrals: Liudmila Olivera NP, [employer] [facility] [Primary Care Provider] - Print Language: Belarusian What to do if you have Problems For any increased pain, shortness of breath, bleeding, nausea or vomiting, chestpain, or any unexpected problems, contact your Primary Care Provider. Call [facility] ([phone]) or report to the closest Emergency Room. Call 911 if necessary. 03/17/25 1107 <Electronically signed by Wayne Waterman DO> Cosigner Signature (if applicable): CC: FELIX Olivera ~ Signed ADDENDUM by Dr. Wayne Waterman DO on 03/17/25 at 1128 Troponin x 2 and BNP unremarkable 03/17/25 1128<Electronically signed by Wayne Waterman DO> Cosigner Signature (if applicable): cc: FELIX Olivera ~* Signed [facility] Work Phone: Evaluation note* Diagnosis Chronic obstructive pulmonary disease, unspecified COPD type (HCC) documented in this encounter [facility] note* Diagnosis Hypothyroidism, acquired Unspecified hypothyroidism documented in this encounter [facility] note* Diagnosis Chronic obstructive pulmonary disease, unspecified COPD type (HCC) documented in this encounter [facility] note* Diagnosis Chronic obstructive pulmonary disease, unspecified COPD type (HCC) documented in this encounter [facility] note* Diagnosis Acute cystitis without hematuria- Primary Acute cystitis Dysuria Psoriasis Other psoriasis Encounter for screening mammogram for malignant neoplasm of breast Other screening mammogram documented in this encounter [facility] note* Diagnosis Chronic obstructive pulmonary disease, unspecified COPD type (HCC) documented in this encounter [facility] note* Diagnosis Chronic obstructive pulmonary disease, unspecified COPD type (HCC) documented in this encounter [facility] note* Diagnosis Encounter for screening mammogram for malignant neoplasm of breast Other screening mammogram documented in this encounter [facility] note* Diagnosis Chronic obstructive pulmonary disease, unspecified COPD type (HCC) documented in this encounter [facility] note* Diagnosis Chronic obstructive pulmonary disease, unspecified COPD type (HCC) [facility] Diagnosis Chronic obstructive pulmonary disease, unspecified COPD type (HCC) documented in this encounter [facility] note* Diagnosis Chronic obstructive pulmonary disease, unspecified COPD type (HCC) documented in this encounter [facility] note* Diagnosis Chronic obstructive pulmonary disease, unspecified COPD type (HCC) documented in this encounter [facility] note* Diagnosis GERD without esophagitis- Primary Esophageal reflux documented in this encounter [facility] note* Diagnosis Chronic bronchitis, unspecified chronic bronchitis type (HCC) documented in this encounter [facility] note* Diagnosis Primary hypertension- Primary Unspecified essential hypertension Mixed hyperlipidemia Mixed stress and urge urinary incontinence Mixed incontinence urge and stress (male)(female) Cigarette smoker Tobacco use disorder Yeast dermatitis Candidiasis of skin and nails Anxiety Anxiety state, unspecified Centrilobular emphysema (HCC) Other emphysema Pulmonary fibrosis (HCC) Postinflammatory pulmonary fibrosis Chronic hypoxemic respiratory failure (HCC) Chronic respiratory failure GERD without esophagitis Esophageal reflux Hypothyroidism, acquired Unspecified hypothyroidism Vitamin D deficiency Unspecified vitamin D deficiency Urinary frequency documented in this encounter [facility] note* Diagnosis Chronic obstructive pulmonary disease, unspecified COPD type (HCC) documented in this encounter [facility] note* Diagnosis Chronic obstructive pulmonary disease, unspecified COPD type (HCC) [facility] Diagnosis Chronic obstructive pulmonary disease, unspecified COPD type (HCC) [facility]* Diagnosis Hypothyroidism, acquired Unspecified hypothyroidism documented in this encounter [facility] note* Diagnosis Hx of CABG Postsurgical aortocoronary bypass status [facility] Diagnosis Bilateral leg edema- Primary Edema [facility] Diagnosis Chronic obstructive pulmonary disease, unspecified COPD type (HCC) documented in this encounter [facility] note* Diagnosis Chronic obstructive pulmonary disease, unspecified COPD type (HCC) documented in this encounter [facility] note* Diagnosis Chronic obstructive pulmonary disease, unspecified COPD type (HCC) documented in this encounter [facility] note* Diagnosis Bilateral leg edema- Primary Edema documented in this encounter [facility] note* Diagnosis Chronic obstructive pulmonary disease, unspecified COPD type (HCC) [J44.9 (ICD-10-CM)]- Primary documented in this encounter [facility] note* Diagnosis Chronic obstructive pulmonary disease, unspecified COPD type (HCC) [J44.9 (ICD-10-CM)]- Primary documented in this encounter [facility] note* Diagnosis Chronic obstructive pulmonary disease, unspecified COPD type (HCC) [J44.9 (ICD-10-CM)]- Primary documented in this encounter [facility] note* Diagnosis GERD without esophagitis Esophageal reflux documented in this encounter [facility] note* Diagnosis Upper back pain documented in this encounter [facility] note* Diagnosis Tobacco abuse Tobacco use disorder documented in this encounter [facility] note* Diagnosis Chronic obstructive pulmonary disease, unspecified COPD type (HCC) [J44.9 (ICD-10-CM)]- Primary documented in this encounter [facility] note* Diagnosis Chronic obstructive pulmonary disease, unspecified COPD type (HCC) [J44.9 (ICD-10-CM)]- Primary documented in this encounter [facility] note* Diagnosis Chronic obstructive pulmonary disease, unspecified COPD type (HCC)- Primary documented in this encounter [facility] note* Diagnosis Cigarette smoker Tobacco use disorder documented in this encounter [facility] note* Diagnosis Intervertebral disc disorder of lumbar region with myelopathy- Primary Intervertebral lumbar disc disorder with myelopathy, lumbar region Radiculopathy due to lumbar intervertebral disc disorder Other chronic pain Cervical spondylosis without myelopathy Degeneration of cervical intervertebral disc Sacroiliitis, not elsewhere classified (HCC) Sacroiliitis, not elsewhere classified documented in this encounter [facility] note* Diagnosis Chronic obstructive pulmonary disease, unspecified COPD type (HCC) [J44.9 (ICD-10-CM)]- Primary documented in this encounter [facility] note* Diagnosis Chronic obstructive pulmonary disease, unspecified COPD type (HCC) [J44.9 (ICD-10-CM)]- Primary [facility] Diagnosis Chronic obstructive pulmonary disease, unspecified COPD type (HCC) [J44.9 (ICD-10-CM)]- Primary [facility] Diagnosis Chronic obstructive pulmonary disease, unspecified COPD type (HCC) [J44.9 (ICD-10-CM)]- Primary [facility]* Diagnosis GERD without esophagitis Esophageal reflux documented in this encounter [facility] noteNo assessment information [facility]WBelle[facility] Work Phone: Evaluation note* Diagnosis Chronic obstructive pulmonary disease, unspecified COPD type (HCC) [J44.9 (ICD-10-CM)]- Primary documented in this encounter [facility] note* Diagnosis Hypothyroidism, acquired Unspecified hypothyroidism documented in this encounter [facility] note* Diagnosis Yeast dermatitis- Primary Candidiasis of skin and nails Acute non-recurrent maxillary sinusitis Ectatic thoracic aorta (HCC) Thoracic aortic ectasia Centrilobular emphysema (HCC) Other emphysema Pulmonary fibrosis (HCC) Postinflammatory pulmonary fibrosis Chronic hypoxemic respiratory failure (HCC) Chronic respiratory failure documented in this encounter [facility] note* Diagnosis Upper respiratory tract infection, unspecified type- Primary Sore throat Acute pharyngitis COPD with exacerbation (HCC) Obstructive chronic bronchitis with exacerbation documented in this encounter [facility] note* Diagnosis GERD without esophagitis Esophageal reflux [facility]* Diagnosis Hypothyroidism, acquired- Primary Unspecified hypothyroidism GERD without esophagitis Esophageal reflux Yeast dermatitis Candidiasis of skin and nails Encounter for screening mammogram for breast cancer Multiple thyroid nodules Nontoxic multinodular goiter [facility]* Diagnosis Yeast dermatitis- Primary Candidiasis of skin and nails Psoriasis Other psoriasis [facility] Diagnosis Upper respiratory tract infection, unspecified type [facility]* Diagnosis Abscess of labia- Primary Other abscess of vulva documented in this encounter [facility] note* Diagnosis Abscess of labia Other abscess of vulva [facility]* Diagnosis Chest pain, unspecified type- Primary COPD with exacerbation (HCC) Obstructive chronic bronchitis with exacerbation [facility]* Diagnosis Onset Date Resolution Status Erythrocytosis acute Leukocytosis acute Acute on chronic respiratory failure with hypoxia chronic Moderate COPD (chronic obstructive pulmonary disease) [facility] Work Phone: Evaluation note* Diagnosis Weakness- Primary Other malaise and fatigue Chronic respiratory failure with hypoxia (HCC) Chronic respiratory failure Smokes cigarettes Tobacco use disorder [facility]* Diagnosis Unsteady gait- Primary Abnormality of gait [facility]* Diagnosis COPD with exacerbation (HCC)- Primary Obstructive chronic bronchitis with exacerbation Smoker Tobacco use disorder Restless leg syndrome Restless legs syndrome (RLS) Chest pain, unspecified type Bilateral leg edema Edema Ectatic thoracic aorta (HCC) Thoracic aortic ectasia Aortic valve insufficiency, etiology of cardiac valve disease unspecified Chronic constipation Unspecified constipation [facility]* Diagnosis Dysuria- Primary [facility]* Diagnosis Acute non-recurrent maxillary sinusitis- Primary COPD with exacerbation (HCC) Obstructive chronic bronchitis with exacerbation [facility] Diagnosis COPD with exacerbation (HCC)- Primary Obstructive chronic bronchitis with exacerbation [facility] Diagnosis Onset Date Resolution Status Leukocytosis acute Acute on chronic respiratory failure with hypoxia resolved Erythrocytosis resolved Chronic obstructive lung disease chronic Chronic respiratory failure with hypoxia [facility] Work Phone: Evaluation note* Diagnosis Onset Date Resolution Status Leukocytosis acute Acute on chronic respiratory failure with hypoxia resolved Erythrocytosis resolved Chronic obstructive lung disease chronic Chronic respiratory failure with hypoxia chronic Shortness of breath noneacti ve [facility] Work Phone: Evaluation note* Diagnosis Left flank pain- Primary Abdominal pain, unspecified site Generalized abdominal pain Abdominal pain, generalized Recurrent UTI (urinary tract infection) Urinary tract infection, site not specified Difficulty urinating Other symptoms involving urinary system Sacroiliitis, not elsewhere classified (HCC) Sacroiliitis, not elsewhere classified Chronic hypoxemic respiratory failure (HCC) Chronic respiratory failure Centrilobular emphysema (HCC) Other emphysema Ectatic thoracic aorta (HCC) Thoracic aortic ectasia documented in this encounter [facility] note* Diagnosis Sore throat- Primary Acute pharyngitis Tonsillitis Acute tonsillitis [facility]* Diagnosis Bilateral leg edema Edema documented in this encounter [facility] note* Diagnosis Restless leg syndrome Restless legs syndrome (RLS) documented in this encounter [facility] note* Diagnosis GERD without esophagitis Esophageal reflux documented in this encounter [facility] note* Diagnosis Mixed hyperlipidemia- Primary Hypothyroidism, acquired Unspecified hypothyroidism Dyslipidemia Other and unspecified hyperlipidemia Mixed stress and urge urinary incontinence Mixed incontinence urge and stress (male)(female) documented in this encounter [facility] note* Diagnosis Bilateral leg edema Edema documented in this encounter [facility] note* Diagnosis Onset Date Resolution Status Chronic obstructive lung disease chronic Chronic respiratory failure with hypoxia [facility]* Diagnosis Psoriasis- Primary Other psoriasis documented in this encounter [facility] note* Diagnosis Hypothyroidism, acquired- Primary Unspecified hypothyroidism documented in this encounter [facility] note* Diagnosis Primary hypertension- Primary Unspecified essential hypertension GERD without esophagitis Esophageal reflux Chronic chest pain Chest pain, unspecified documented in this encounter [facility] note* Diagnosis Welcome to Medicare preventive visit- Primary Routine general medical examination at a health care facility Encounter for immunization Need for other specified prophylactic vaccination against single bacterial disease Osteopenia of lumbar spine Postmenopausal Asymptomatic postmenopausal status (age-related) (natural) Breast cancer screening by mammogram History of uterine cancer Personal history of malignant neoplasm of other parts of uterus documented in this encounter [facility] note* Diagnosis Hypothyroidism, acquired- Primary Unspecified hypothyroidism documented in this encounter [facility] note* Diagnosis Osteopenia of lumbar spine Postmenopausal Asymptomatic postmenopausal status (age-related) (natural) [facility]* Diagnosis Breast cancer screening by mammogram [facility] Diagnosis Ascending aorta dilatation (HCC)- Primary Thoracic aortic ectasia [facility]* Diagnosis Dysuria- Primary Acute UTI Urinary tract infection, site not specified Glucose found in urine on examination Glycosuria Newly diagnosed diabetes (HCC) Type II or unspecified type diabetes mellitus without mention of complication, not stated as uncontrolled documented in this encounter [facility] note* Diagnosis Newly diagnosed diabetes (HCC)- Primary Type II or unspecified type diabetes mellitus without mention of complication, not stated as uncontrolled Nail abnormality Unspecified disease of nail [facility] Diagnosis Newly diagnosed diabetes (HCC) Type II or unspecified type diabetes mellitus without mention of complication, not stated as uncontrolled documented in this encounter [facility] note* Diagnosis Restless leg syndrome Restless legs syndrome (RLS) [facility]* Diagnosis Abscess, vulva- Primary Other abscess of vulva [facility]* Diagnosis Cellulitis of right groin- Primary Cellulitis and abscess of trunk Abscess, vulva Other abscess of vulva Onychomycosis Dermatophytosis of nail documented in this encounter [facility] note* Diagnosis Abscess of groin, right- Primary Cellulitis and abscess of trunk Abscess of groin, right Cellulitis and abscess of trunk [facility]* Diagnosis Bilateral leg edema Edema [facility]* Diagnosis Status post incision and drainage- Primary documented in this encounter [facility] note* Diagnosis Cellulitis of right groin- Primary Cellulitis and abscess of trunk [facility]* Diagnosis Status post incision and drainage- Primary [facility] Diagnosis Newly diagnosed diabetes (HCC) Type II or unspecified type diabetes mellitus without mention of complication, not stated as uncontrolled documented in this encounter [facility] note* Diagnosis Type 2 diabetes mellitus without complication, without long-term current use of insulin (HCC)- Primary Primary hypertension Unspecified essential hypertension Mixed hyperlipidemia Hypothyroidism, acquired Unspecified hypothyroidism Centrilobular emphysema (HCC) Other emphysema [facility]* Diagnosis GERD without esophagitis Esophageal reflux [facility] Diagnosis Cellulitis of great toe, right- Primary Cellulitis and abscess of toe, unspecified [facility]* Diagnosis Right-sided chest pain- Primary Dyspnea, unspecified type Upper respiratory tract infection, unspecified type Acute cough Sacroiliitis, not elsewhere classified (HCC) Sacroiliitis, not elsewhere classified Chronic hypoxemic respiratory failure (HCC) Chronic respiratory failure Centrilobular emphysema (HCC) Other emphysema Ascending aorta dilatation (HCC) Thoracic aortic ectasia Type 2 diabetes mellitus without complication, without long-term current use of insulin (HCC) Mixed stress and urge urinary incontinence Mixed incontinence urge and stress (male)(female) [facility]* Diagnosis Right-sided chest pain Dyspnea, unspecified type Acute cough [facility] this [facility]* Diagnosis COVID-19- Primary documented in this encounter [facility] note* Diagnosis Newly diagnosed diabetes (HCC) Type II or unspecified type diabetes mellitus without mention of complication, not stated as uncontrolled documented in this encounter [facility] note* Diagnosis Bilateral leg edema Edema [facility]* Diagnosis Restless leg syndrome Restless legs syndrome (RLS) documented in this encounter [facility]* Diagnosis Dysuria- Primary [facility] this [facility]* Diagnosis Dilatation of thoracic aorta (HCC)- Primary Thoracic aortic ectasia [facility]* Diagnosis Primary hypertension- Primary Unspecified essential hypertension Mixed hyperlipidemia Hypothyroidism, acquired Unspecified hypothyroidism Type 2 diabetes mellitus without complication, without long-term current use of insulin (HCC) documented in this encounter [facility] note* Diagnosis History of colonic polyps Personal history of colonic polyps Encounter for colorectal cancer screening Special screening for malignant neoplasms, colon GERD without esophagitis Esophageal reflux [facility]* Diagnosis Type 2 diabetes mellitus without complication, without long-term current use of insulin (HCC)- Primary Primary hypertension Unspecified essential hypertension Mixed hyperlipidemia Mixed stress and urge urinary incontinence Mixed incontinence urge and stress (male)(female) Environmental allergies Other allergy, other than to medicinal agents History of colonic polyps Personal history of colonic polyps Encounter for colorectal cancer screening Special screening for malignant neoplasms, colon GERD without esophagitis Esophageal reflux Atrophic vaginitis Postmenopausal atrophic vaginitis documented [facility] this encounter [facility]* Diagnosis Aortic valve insufficiency, etiology of cardiac valve disease unspecified- Primary Centrilobular emphysema (HCC) Other emphysema Pulmonary emphysema, unspecified emphysema type (HCC) Chronic hypoxemic respiratory failure (HCC) Chronic respiratory failure Ectatic thoracic aorta Thoracic aortic ectasia GERD without esophagitis Esophageal reflux History of uterine cancer Personal history of malignant neoplasm of other parts of uterus Hypothyroidism, acquired Unspecified hypothyroidism Mixed hyperlipidemia Obesity, Class I, BMI 30-34.9 Obesity, unspecified Primary hypertension Unspecified essential hypertension Smoker Tobacco use disorder Type 2 diabetes mellitus without complication, without long-term current use of insulin (HCC) Coronary artery calcification seen on CAT scan Coronary atherosclerosis of unspecified type of vessel, [place] or graft * Assessment & Plan Note - Steven Regalado APRN.CNP - 04/13/2025 9:29 AM EDT Associated Problem(s): Type 2 diabetes mellitus without complication, without long-term current useof insulin (HCC) Assessment: Reports compliance to medication: metformin. Reports BS checks daily, typically less than 100. Following with PCP. Encouraged lifestyle modifications. Hemoglobin A1C (%) Date Value 03/03/2025 5.7 12/22/2019 5.8 10/28/2018 6.0 Hemoglobin A1C (POCT) (%) Date Value 09/15/2024 6.2 06/15/2024 8.0 * Assessment & Plan Note - Steven Regalado APRN.CNP - 04/13/2025 9:28 AM EDT Associated Problem(s): Smoker Assessment: Current intermittent tobacco use, advised no tobacco products DOS * Assessment & Plan Note - Steven Regalado APRN.CNP - 04/13/2025 9:28 AM EDT Associated Problem(s): Primary hypertension Assessment: Controlled on Lasix and metoprolol, follows with PCP/cardiology Last 3 Encounter BP Readings: Date: BP: 04/09/2025 120/72 03/15/2025 153/81 03/08/2025 122/68 * Assessment & Plan Note - Steven Regalado APRN.CNP - 04/13/2025 9:27 AM EDT Associated Problem(s): Obesity, Class I, BMI 30-34.9 Assessment: Body mass index is 33.09 kg/m . * Assessment & Plan Note - Steven Regalado APRN.CNP - 04/13/2025 9:27 AM EDT Associated Problem(s): Mixed hyperlipidemia Assessment: Controlled on statin and fish oil, follows with PCP/cardiology * Assessment & Plan Note - Steven Regalado APRN.CNP - 04/13/2025 9:27 AM EDT Associated Problem(s): Hypothyroidism, acquired Assessment: Controlled on Synthroid, follows with PCP, clinically euthyroid. TSH Date Value Ref Range Status 03/03/2025 1.730 0.270 - 4.200 mIU/L Final * Assessment & Plan Note - Steven Regalado APRN.CNP - 04/13/2025 9:27 AM EDT Associated Problem(s): History of uterine cancer Assessment: Uterine cancer s/p hysterectomy (2005). No chemo or radiation. * Assessment & Plan Note - Steven Regalado APRN.CNP - 04/13/2025 9:26 AM EDT Associated Problem(s): GERD without esophagitis Assessment: Controlled on Prevacid, follows with GI. Scheduled for EGD/colonoscopy 04/28/25. * Assessment & Plan Note - Steven Regalado APRN.CNP - 04/13/2025 9:24 AM EDT Associated Problem(s): Ectatic thoracic aorta Assessment: Follows with cut out and marking machine operator Dr. Bowser, last OV 02/05/25. Office Visit with Jessi Bowser MD (02/05/2025) ECHO (12/15/2024 8:36 AM) Per echo 12/15/24: "The visualized aorta is dilated with a maximal dimension of 4.0 cm." * Assessment & Plan Note - Steven Regalado APRN.CNP - 04/13/2025 9:23 AM EDT Associated Problem(s): Coronary artery calcification seen on CAT scan Assessment: Coronary calcifications seen on CT scan. Denies any new or worsening cardiac symptoms. Follows with cut out and marking machine operator, Dr. Bowser, last OV 02/05/25. Reports compliance to medication: metoprolol, statin, aspirin. No stents or interventions. Ejection Fraction - Result: 68 % Date: 12/15/2024 Time: 08:36:50 Office Visit with Jessi Bowser MD (02/05/2025) * Assessment & Plan Note - Steven Regalado APRN.CNP - 04/13/2025 9:21 AM EDT Associated Problem(s): Chronic obstructive pulmonary disease (HCC) Assessment: Follows with PCP for monitoring. Compliant on inhalers. [place] diagnosis. Wears oxygen 2 liters at all times, 3 liters on exertion. Respirations easy and unlabored during [facility] video visit. * Assessment & Plan Note - Steven Regalado APRN.CNP - 04/13/2025 9:21 AM EDT Associated Problem(s): Chronic hypoxemic respiratory failure (HCC) Assessment: Follows with PCP for monitoring. Compliant on inhalers. [facility] denies [place] diagnosis. Wears oxygen 2 liters at all times, 3 liters on exertion. Respirations easy and unlabored during [facility] video visit. * Assessment & Plan Note - Steven Regalado APRN.CNP - 04/13/2025 9:21 AM EDT Associated Problem(s): Centrilobular emphysema (HCC) Assessment: Follows with PCP for monitoring. Compliant on inhalers. [place]; denies pneumonia diagnosis. Wears oxygen 2 liters at all times, 3 liters on exertion. Respirations easy and unlabored during [facility] video visit. * Assessment & Plan Note - Steven Regalado APRN.CNP - 04/13/2025 9:18 AM EDT Associated Problem(s): Aortic valve regurgitation Assessment: Follows with cut out and marking machine operator Dr. Bowser, follows with 02/05/25. Office Visit with Jessi Bowser MD (02/05/2025) ECHO (12/15/2024 8:36 AM) Per echo 12/15/24: "The aortic valve cusps are structurally normal. There is no aortic valve regurgitation. Tricuspid aortic valve." [facility] Community acquired pneumonia, unspecified laterality- Primary Chronic respiratory failure with hypoxia (HCC) Chronic respiratory failure Pulmonary emphysema, unspecified emphysema type (HCC) Cervical radiculopathy Brachial neuritis or radiculitis nos Radiculopathy due to lumbar intervertebral disc disorder Psoriasis Other psoriasis Nicotine dependence, cigarettes, uncomplicated Aortic valve insufficiency, etiology of cardiac valve disease unspecified- Primary Centrilobular emphysema (HCC) Other emphysema Pulmonary emphysema, unspecified emphysema type (HCC) Chronic hypoxemic respiratory failure (HCC) Chronic respiratory failure Ectatic thoracic aorta Thoracic aortic ectasia GERD without esophagitis Esophageal reflux History of uterine cancer Personal history of malignant neoplasm of other parts of uterus Hypothyroidism, acquired Unspecified hypothyroidism Mixed hyperlipidemia Obesity, Class I, BMI 30-34.9 Obesity, unspecified Primary hypertension Unspecified essential hypertension Smoker Tobacco use disorder Type 2 diabetes mellitus without complication, without long-term current use of insulin (HCC) Coronary artery calcification seen on CAT scan Coronary atherosclerosis of unspecified type of vessel, [place] or graft documented in this encounter [facility] note* Diagnosis Aortic valve insufficiency, etiology of cardiac valve disease unspecified- Primary Centrilobular emphysema (HCC) Other emphysema Pulmonary emphysema, unspecified emphysema type (HCC) Chronic hypoxemic respiratory failure (HCC) Chronic respiratory failure Ectatic thoracic aorta Thoracic aortic ectasia GERD without esophagitis Esophageal reflux History of uterine cancer Personal history of malignant neoplasm of other parts of uterus Hypothyroidism, acquired Unspecified hypothyroidism Mixed hyperlipidemia Obesity, Class I, BMI 30-34.9 Obesity, unspecified Primary hypertension Unspecified essential hypertension Smoker Tobacco use disorder Type 2 diabetes mellitus without complication, without long-term current use of insulin (HCC) Coronary artery calcification seen on CAT scan Coronary atherosclerosis of unspecified type of vessel, [place] or graft History of colonic polyps Personal history of colonic polyps GERD without esophagitis Esophageal reflux [facility] Diagnosis Aortic valve insufficiency, etiology of cardiac valve disease unspecified- Primary Centrilobular emphysema (HCC) Other emphysema Pulmonary emphysema, unspecified emphysema type (HCC) Chronic hypoxemic respiratory failure (HCC) Chronic respiratory failure Ectatic thoracic aorta Thoracic aortic ectasia GERD without esophagitis Esophageal reflux History of uterine cancer Personal history of malignant neoplasm of other parts of uterus Hypothyroidism, acquired Unspecified hypothyroidism Mixed hyperlipidemia Obesity, Class I, BMI 30-34.9 Obesity, unspecified Primary hypertension Unspecified essential hypertension Smoker Tobacco use disorder Type 2 diabetes mellitus without complication, without long-term current use of insulin (HCC) Coronary artery calcification seen on CAT scan Coronary atherosclerosis of unspecified type of vessel, [place] or graft GERD without esophagitis- Primary Esophageal reflux Hiatal hernia Diaphragmatic hernia without mention of obstruction or gangrene Gassiness Flatulence, eructation, and gas pain [facility] Diagnosis Aortic valve insufficiency, etiology of cardiac valve disease unspecified- Primary Centrilobular emphysema (HCC) Other emphysema Pulmonary emphysema, unspecified emphysema type (HCC) Chronic hypoxemic respiratory failure (HCC) Chronic respiratory failure Ectatic thoracic aorta Thoracic aortic ectasia GERD without esophagitis Esophageal reflux History of uterine cancer Personal history of malignant neoplasm of other parts of uterus Hypothyroidism, acquired Unspecified hypothyroidism Mixed hyperlipidemia Obesity, Class I, BMI 30-34.9 Obesity, unspecified Primary hypertension Unspecified essential hypertension Smoker Tobacco use disorder Type 2 diabetes mellitus without complication, without long-term current use of insulin (HCC) Coronary artery calcification seen on CAT scan Coronary atherosclerosis of unspecified type of vessel, [place] or graft Medicare annual wellness visit, subsequent- Primary Routine general medical examination at a health care facility Encounter for screening mammogram for breast cancer Screening for vaginal cancer Special screening for malignant neoplasms, vagina Encounter for gynecological examination without abnormal finding Routine gynecological examination Gastroesophageal reflux disease without esophagitis Esophageal reflux Type 2 diabetes mellitus without complication, without long-term current use of insulin (HCC) Nausea Nausea alone Epigastric pain Abdominal pain, epigastric Labia irritation Other specified noninflammatory disorder of vulva and perineum Vaginal itching Pruritus of genital organs DANNY (obstructive sleep apnea) Obstructive sleep apnea (adult) (pediatric) Mixed stress and urge urinary incontinence Mixed incontinence urge and stress (male)(female) [facility] Diagnosis Aortic valve insufficiency, etiology of cardiac valve disease unspecified- Primary Centrilobular emphysema (HCC) Other emphysema Pulmonary emphysema, unspecified emphysema type (HCC) Chronic hypoxemic respiratory failure (HCC) Chronic respiratory failure Ectatic thoracic aorta Thoracic aortic ectasia GERD without esophagitis Esophageal reflux History of uterine cancer Personal history of malignant neoplasm of other parts of uterus Hypothyroidism, acquired Unspecified hypothyroidism Mixed hyperlipidemia Obesity, Class I, BMI 30-34.9 Obesity, unspecified Primary hypertension Unspecified essential hypertension Smoker Tobacco use disorder Type 2 diabetes mellitus without complication, without long-term current use of insulin (HCC) Coronary artery calcification seen on CAT scan Coronary atherosclerosis of unspecified type of vessel, [place] or graft Recurrent UTI (urinary tract infection)- Primary Urinary tract infection, site not specified [facility] Diagnosis Aortic valve insufficiency, etiology of cardiac valve disease unspecified- Primary Centrilobular emphysema (HCC) Other emphysema Pulmonary emphysema, unspecified emphysema type (HCC) Chronic hypoxemic respiratory failure (HCC) Chronic respiratory failure Ectatic thoracic aorta Thoracic aortic ectasia GERD without esophagitis Esophageal reflux History of uterine cancer Personal history of malignant neoplasm of other parts of uterus Hypothyroidism, acquired Unspecified hypothyroidism Mixed hyperlipidemia Obesity, Class I, BMI 30-34.9 Obesity, unspecified Primary hypertension Unspecified essential hypertension Smoker Tobacco use disorder Type 2 diabetes mellitus without complication, without long-term current use of insulin (HCC) Coronary artery calcification seen on CAT scan Coronary atherosclerosis of unspecified type of vessel, [place] or graft Acute cough Chest pain, unspecified type Dyspnea, unspecified type [facility]* Diagnosis Aortic valve insufficiency, etiology of cardiac valve disease unspecified- Primary Centrilobular emphysema (HCC) Other emphysema Pulmonary emphysema, unspecified emphysema type (HCC) Chronic hypoxemic respiratory failure (HCC) Chronic respiratory failure Ectatic thoracic aorta Thoracic aortic ectasia GERD without esophagitis Esophageal reflux History of uterine cancer Personal history of malignant neoplasm of other parts of uterus Hypothyroidism, acquired Unspecified hypothyroidism Mixed hyperlipidemia Obesity, Class I, BMI 30-34.9 Obesity, unspecified Primary hypertension Unspecified essential hypertension Smoker Tobacco use disorder Type 2 diabetes mellitus without complication, without long-term current use of insulin (HCC) Coronary artery calcification seen on CAT scan Coronary atherosclerosis of unspecified type of vessel, [place] or graft Lower respiratory infection- Primary Other diseases of respiratory system, not elsewhere classified COPD with exacerbation (HCC) Obstructive chronic bronchitis with exacerbation Acute cough Chest pain, unspecified type Dyspnea, unspecified type Acute cough Chest pain, unspecified type Dyspnea, unspecified type [facility] Diagnosis Aortic valve insufficiency, etiology of cardiac valve disease unspecified- Primary Centrilobular emphysema (HCC) Other emphysema Pulmonary emphysema, unspecified emphysema type (HCC) Chronic hypoxemic respiratory failure (HCC) Chronic respiratory failure Ectatic thoracic aorta Thoracic aortic ectasia GERD without esophagitis Esophageal reflux History of uterine cancer Personal history of malignant neoplasm of other parts of uterus Hypothyroidism, acquired Unspecified hypothyroidism Mixed hyperlipidemia Obesity, Class I, BMI 30-34.9 Obesity, unspecified Primary hypertension Unspecified essential hypertension Smoker Tobacco use disorder Type 2 diabetes mellitus without complication, without long-term current use of insulin (HCC) Coronary artery calcification seen on CAT scan Coronary atherosclerosis of unspecified type of vessel, [place] or graft Right hip pain Pain in joint, pelvic region and thigh [facility] Diagnosis Aortic valve insufficiency, etiology of cardiac valve disease unspecified- Primary Centrilobular emphysema (HCC) Other emphysema Pulmonary emphysema, unspecified emphysema type (HCC) Chronic hypoxemic respiratory failure (HCC) Chronic respiratory failure Ectatic thoracic aorta Thoracic aortic ectasia GERD without esophagitis Esophageal reflux History of uterine cancer Personal history of malignant neoplasm of other parts of uterus Hypothyroidism, acquired Unspecified hypothyroidism Mixed hyperlipidemia Obesity, Class I, BMI 30-34.9 Obesity, unspecified Primary hypertension Unspecified essential hypertension Smoker Tobacco use disorder Type 2 diabetes mellitus without complication, without long-term current use of insulin (HCC) Coronary artery calcification seen on CAT scan Coronary atherosclerosis of unspecified type of vessel, [place] or graft Restless leg syndrome Restless legs syndrome (RLS) documented in this encounter [facility] for referral (narrative)* Diagnostic Procedure Only (Routine) - Pending Review Specialty Diagnoses / Procedures Referred By Marilou guzman Referred To Contact [facility] Diagnoses Encounter for screening mammogram for malignant neoplasm of breast Procedures NARINDER SCREENING SCREENING MAMMOGRAPHY BI 2-VIEW BREAST INC Liudmila Plata APRN.CNP [address] [place] [address] [facility] [address] [place] [address] Referral ID Status Reason Start Date Expiration Date Visits Requested Visits Authorized [id number] Pending Review Auto-Generat ed Referral 02/20/2022 03/22/2023 1 1 [facility] for referral (narrative)* Diagnostic Procedure Only (Routine) - Closed Specialty Diagnoses / Procedures Referred By Marilou t Referred To Contact [facility] Diagnoses Encounter for screening mammogram for malignant neoplasm of breast Procedures NARINDER SCREENING SCREENING MAMMOGRAPHY BI 2-VIEW BREAST INC Liudmila Plata APRN.CNP [address] [place] [address] [facility] [address] [place] [address] Referral ID Status Reason Start Date Expiration Date V isits Requested Visits Authorized [id number] Closed Auto-Generate d Referral 02/20/2022 03/22/2023 1 1 [facility] for referral (narrative)* Diagnostic Procedure Only (Routine) - Closed Specialty Diagnoses / Procedures Referred By Contac t Referred To Contact XR IMAGING Diagnoses Upper back pain Procedures XR THORACIC GENERAL 3V AP/LAT/SWIMMERS RADEX SPINE THORACIC 3 VIEWS Liudmila Olivera APRN.[employer] CASHIER [address] [place] [address] X[facility] Referral ID Status Reason Start Date Expiration Date V isits Requested Visits Authorized [id number] Closed Auto-Generate d Referral 07/30/2022 08/29/2023 1 1 [facility] for referral (narrative)* Diagnostic Procedure Only (Routine) - Authorized Specialty Diagnoses / Procedures Referred By Contac t Referred To Contact [facility] Diagnoses Multiple thyroid nodules Procedures US THYROID/PARATHYROID US SOFT TISSUE HEAD & NECK REAL TIME IMGE DOCM Liudmila Olivera APRN.[employer] [address] [place] [address] [facility] Referral ID Status Reason Start Date Expiration Date Visits Requested Visits Authorized [id number] Authorized Auto-Generat ed Referral 01/16/2023 02/15/2024 1 1 * Diagnostic Procedure Only (Routine) - Authorized Specialty Diagnoses / Procedures Referred By Contac t Referred To Contact [facility] Diagnoses Encounter for screening mammogram for breast cancer Procedures NARINDER SCREENING SCREENING MAMMOGRAPHY BI 2-VIEW BREAST INC CAD Liudmila Olivera APRN.[employer] [address] [place] [address] [facility] [address] [place] [address] Referral ID Status Reason Start Date Expiration Date Visits Requested Visits Authorized [id number] Authorized Auto-Generat ed Referral 01/16/2023 02/15/2024 1 1 [facility] for referral (narrative)* Outpatient Procedure (Routine) - Pending Review Specialty Diagnoses / Procedures Referred By Contac t Referred To Contact [facility] Diagnoses Chronic chest pain Procedures ECG COMPLETE ECG ROUTINE ECG W/LEAST 12 LDS W/I&R Liudmila Olivera APRN.[employer]IER [address] [place] [address] [facility] [address] [place] [address] Referral ID Status Reason Start Date Expiration Date Visits Requested Visits Authorized [id number] Pending Review Auto-Generat ed Referral 04/03/2024 04/03/2025 1 1 [facility] for referral (narrative)* Diagnostic Procedure Only (Routine) - Pending Review Specialty Diagnoses / Procedures Referred By Contac t Referred To Contact [facility] Diagnoses Breast cancer screening by mammogram Procedures NARINDER SCREENING SCREENING MAMMOGRAPHY BI 2-VIEW BREAST INC CAD Liudmila Olivera APRN.[employer] C[employer]IER [address] [place] [address] [facility] [address] [place] [address] Referral ID Status Reason Start Date Expiration Date Visits Requested Visits Authorized [id number] Pending Review Auto-Generat ed Referral 05/12/2024 06/11/2025 1 1 * Diagnostic Procedure Only (Routine) - Pending Review Specialty Diagnoses / Procedures Referred By Contac t Referred To Contact XR IMAGING Diagnoses Osteopenia of lumbar spine Postmenopausal Procedures BMD BODY COMPOSITION STUDY UNLISTED DIAGNOSTIC RADIOGRAPHIC PROCEDURE Liudmila Olivera APRN.[employer] CASHIER [address] [place] [address] [place] [address] Referral ID Status Reason Start Date Expiration Date Visits Requested Visits Authorized [id number] Pending Review Auto-Generat ed Referral 05/12/2024 06/11/2025 1 1 [facility] for referral (narrative)* Outpatient Procedure (Routine) - Authorized Specialty Diagnoses / Procedures Referred By Marilou guzman Referred To Contact [facility] Diagnoses Ascending aorta dilatation (HCC) Procedures ECHO ECHO TTHRC R-T 2D W/WOM-MODE COMPL SPEC&COLR D Jessi Bowser MD [address] [place] [address] [facility] [address] [place] [address] Referral ID Status Reason Start Date Expiration Date Visits Requested Visits Authorized [id number] Authorized Auto-Generat ed Referral 06/09/2025 1 1 [facility] for referral (narrative)No reason for referral information availableWBellevue [facility] Work Phone: [facility] N[facility]ative* Diagnostic Procedure Only (Routine) - Closed Specialty Diagnoses / Procedures Referred By Marilou guzman Referred To Contact BR IMAGING Diagnoses Encounter for screening mammogram for malignant neoplasm of breast Procedures NARINDER SCREENING SCREENING MAMMOGRAPHY BI 2-VIEW BREAST INC CAD Liudmila Olivera APRN.FAST FOOD CASHIER [address] [place] [address] [facility] [address] [place] [address] Referral ID Status Reason Start Date Expiration Date V isits Requested Visits Authorized [id number] Closed Auto-Generate d Referral 02/20/2022 03/22/2023 1 1 [facility] for visit Narrative* Diagnostic Procedure Only (Routine) - Closed Specialty Diagnoses / Procedures Referred By Marilou t Referred To Contact XR IMAGING Diagnoses Upper back pain Procedures XR THORACIC GENERAL 3V AP/LAT/SWIMMERS RADEX SPINE THORACIC 3 VIEWS Liudmila Olivera APRN.FAST FOOD CASHIER [address] [place] [address] Xr Imaging Referral ID Status Reason Start Date Expiration Date V isits Requested Visits Authorized [id number] Closed Auto-Generate d Referral 07/30/2022 08/29/2023 1 1 [facility] for visit Narrative* Diagnostic Procedure Only (Routine) - Closed Specialty Diagnoses / Procedures Referred By Contac t Referred To Contact XR IMAGING Diagnoses Osteopenia of lumbar spine Postmenopausal Procedures BMD BODY COMPOSITION STUDY UNLISTED DIAGNOSTIC RADIOGRAPHIC PROCEDURE Liudmila Olivera, SPACE ENGINEER.FAST FOOD CASHIER [address] [place] [address] [place] [id number] Referral ID Status Reason Start Date Expiration Date V isits Requested Visits Authorized [id number] Closed Auto-Generate d Referral 05/12/2024 06/11/2025 1 1 [facility] for visit Narrative* Diagnostic Procedure Only (Routine) - Closed Specialty Diagnoses / Procedures Referred By Contac t Referred To Contact BR IMAGING Diagnoses Breast cancer screening by mammogram Procedures NARINDER SCREENING SCREENING MAMMOGRAPHY BI 2-VIEW BREAST INC CAD Liudmila Olivera, SPACE ENGINEER.FAST FOOD CASHIER [address] [place] [address] [facility] [address] [place] [address] Referral ID Status Reason Start Date Expiration Date V isits Requested Visits Authorized [id number] Closed Auto-Generate d Referral 05/12/2024 06/11/2025 1 1 [facility] for visit Narrative* Outpatient Procedure (Routine) - Closed Specialty Diagnoses / Procedures [facility] Diagnoses GERD without esophagitis Procedures EGD DIAGNOSTIC ESOPHAGOGASTRODUODENOSC OPY TRANSORAL DIAGNOSTIC Saray Villegas MD [address] [place] [address] Phone: tel: fax: [facility] [address] [place] [address] Referral ID Status Reason Start Date Expiration Date V isits Requested Visits Authorized [id number] Closed Auto-Generate d Referral 03/15/2025 03/15/2026 1 1 [facility] for visit Narrative* Diagnostic Procedure Only (Routine) - Closed Specialty Diagnoses / Procedures Referred By Contac t Referred To Contact XR IMAGING Diagnoses Right hip pain Procedures XR HIP BILATERAL 5V PEL/AP/LAT EACH HIP RADEX HIPS BILATERAL WITH PELVIS MINIMUM 5 VIEWS Liudmila Olivera, JENNIFER.FAST FOOD CASHIER [address] [place] [address] Phone: tel: fax: [place] [id number] Referral ID Status Reason Start Date Expiration Date V isits Requested Visits Authorized [id number] Closed Auto-Generate d Referral 07/06/2025 08/05/2026 1 1 [facility] Summary Purpose Family History No Family History Records Found Relationship Condition Age at Onset Recorded Date/T joy mother Malignant neoplasm Unknown Cardiac disease Unknown Cerebrovascular accident (CVA) Unknown father Chronic obstructive pulmonary disease Unk nown brother Diabetes mellitus Unknown Kidney disorder Unknown Advance Directives No Advanced Directives Records FoundDocuments on File Type Date Recorded Patient Outpatient Coding Specialist Expl anation Advance Directive(s) 03/16/2024 8:20 AM Date Activated Date Inactivated Comments 10/24/2023 6:00 PM 10/28/2023 7:42 PM Question Answer Comments Full Code Order Discussed With: Patient Documents on File Type Date Recorded Patient Outpatient Coding Specialist Expl anation Advance Directive(s) 11/09/2021 8:27 AM Advance Directive(s) 12/22/2019 9:38 AM Advance Directive(s) 09/05/2017 10:57 AM Advance Directive(s) 08/28/2017 11:34 AM Documents on File Type Date Recorded Patient Outpatient Coding Specialist Expl anation Advance Directive(s) 11/09/2021 8:27 AM Advance Directive(s) 12/22/2019 9:38 AM Advance Directive(s) 09/05/2017 10:57 AM Advance Directive(s) 08/28/2017 11:34 AM Advance Directive Response Recorded Date/ Time Living Will No June 27 3 2:30pm Power of Integration Specialist No June 27, 2 023 2:30pm Advance Directive Response Recorded Date/ Time Living Will No June 27 1:30pm Power of Integration Specialist No June 27, 2 023 1:30pm Latest Code Status on File Code Status Date Activated Date Inactivated Comments Full Code 10/24/2023 6:00 PM Question Answer Comments Full Code Order Discussed With: Patient Latest Code Status on File Code Status Date Activated Date Inactivated Comments Full Code 10/24/2023 6:00 PM 10/28/2023 7:42 PM Question Answer Comments Full Code Order Discussed With: Patient Latest Code Status on File Code Status Date Activated Date Inactivated Comments Full Code 10/24/2023 6:00 PM 10/28/2023 7:42 PM Question Answer Comments Full Code Order Discussed With: Patient Date Activated Date Inactivated Comments 10/24/2023 6:00 PM 10/28/2023 7:42 PM Question Answer Comments Full Code Order Discussed With: Patient Documents on File Type Date Recorded Patient Outpatient Coding Specialist Expl anation Advance Directive(s) 03/16/2024 8:20 AM Advance Directive Response Recorded Date/ Time Do you have a Healthcare Power of Integration Specialist? No March 17, 2025 7:36am Advance Directive Response Recorded Date/ Time Do you have a Healthcare Pow er of Integration Specialist? Yes March 17, 2025 11:47am Name of Medical Power of Integration Specialist Blair Haynes (s/o) March 17, 2025 11:47am Reason for Referral Specialty Diagnoses / Procedures Referred By Contac t Referred To Contact Diagnoses Intervertebral disc disorder of lumbar region with myelopathy Radiculopathy due to lumbar intervertebral disc disorder Other chronic pain Cervical spondylosis without myelopathy Degeneration of cervical intervertebral disc Sacroiliitis, not elsewhere classified (HCC) Procedures CONSULT TO PAIN MGT Liudmila Olivera APRN.FAST FOOD CASHIER [address] [place] [address] Tommy Shah [address] [address] Referral ID Status Reason Start Date Expiration Date Visits Requested Visits Authorized [id number] Ref Not Required PCP Requested Referral 2 08/29/2023 1 1 Specialty Diagnoses / Procedures Referred By Contac t Referred To Contact Diagnoses Yeast dermatitis Psoriasis Procedures CONSULT TO DERMATOLOGY OFFICE/OUTPATIENT [facility] 60-74 MINUTES Liudmila Olivera, SPACE ENGINEER.FAST FOOD CASHIER [address] [place] [address] Eleni Rodarte MD [address] [place] [address] Referral ID Status Reason Start Date Expiration Date Visits Requested Visits Authorized [id number] Pending Review PCP Requested Referral 02/19/2023 02/19/2024 1 1 Specialty Diagnoses / Procedures Referred By Contac t Referred To Contact General Surgery Diagnoses Abscess of labia Procedures CONSULT TO GENERAL SURGERY OFFICE/OUTPATIENT [facility] 60-74 MINUTES Liudmila Olivera, SPACE ENGINEER.FAST FOOD CASHIER [address] [place] [address] Referral ID Status Reason Start Date Expiration Date Visits Requested Visits Authorized [id number] Pending Review PCP Requested Referral 03/25/2023 03/24/2024 1 1 Specialty Diagnoses / Procedures Referred By Contac t Referred To Contact Cardiology / [facility] DEPARTMENT Diagnoses Chest pain, unspecified type Bilateral leg edema Ectatic thoracic aorta (HCC) Aortic valve insufficiency, etiology of cardiac valve disease unspecified Procedures CONSULT TO CARDIOLOGY OFFICE/OUTPATIENT [facility] 60-74 MINUTES Liudmila Olivera, SPACE ENGINEER.FAST FOOD CASHIER [address] [place] [address] [facility] [address] [place] [address] Referral ID Status Reason Start Date Expiration Date Visits Requested Visits Authorized [id number] Pending Review PCP Requested Referral 07/23/2023 07/22/2024 1 1 Specialty Diagnoses / Procedures Referred By Contac t Referred To Contact Urology / [facility] DEPARTMENT Diagnoses Recurrent UTI (urinary tract infection) Difficulty urinating Procedures CONSULT TO UROLOGY OFFICE/OUTPATIENT [facility] 60 MINUTES Liudmila Olivera, SPACE ENGINEER.FAST FOOD CASHIER [address] [place] [address] Kelly Dee [address] [place] [address] Referral ID Status Reason Start Date Expiration Date Visits Requested Visits Authorized [id number] Authorized PCP Requested Referral 12/27/2023 12/26/2024 1 1 Specialty Diagnoses / Procedures Referred By Contac t Referred To Contact US IMAGING Diagnoses Left flank pain Generalized abdominal pain Procedures US KIDNEY/BLADDER US RETROPERITONEAL REAL TIME W/IMAGE COMPLETE Liudmila Olivera, SPACE ENGINEER.FAST FOOD CASHIER [address] [place] [address] [place] [address] Referral ID Status Reason Start Date Expiration Date Visits Requested Visits Authorized [id number] Authorized Auto-Generat ed Referral 12/27/2023 01/25/2025 1 1 Specialty Diagnoses / Procedures Referred By Contac t Referred To Contact DERMATOLOGY Diagnoses Psoriasis Procedures CONSULT TO DERMATOLOGY OFFICE/OUTPATIENT [facility] 60 MINUTES Liudmila Olivera, SPACE ENGINEER.FAST FOOD CASHIER [address] [place] [address] Meter Maintenance Person, [address], [address] [place] [address] Referral ID Status Reason Start Date Expiration Date Visits Requested Visits Authorized [id number] Authorized PCP Requested Referral 02/27/2024 02/26/2025 1 1 Specialty Diagnoses / Procedures Referred By Contac t Referred To Contact PODIATRY Diagnoses Newly diagnosed diabetes (HCC) Nail abnormality Procedures CONSULT TO PODIATRY OFFICE/OUTPATIENT [facility] 60 MINUTES Liudmila Olivera, SPACE ENGINEER.FAST FOOD CASHIER [address] [place] [address] [address] Ge[address] [place] [id number] Referral ID Status Reason Start Date Expiration Date Visits Requested Visits Authorized [id number] Authorized PCP Requested Referral 07/14/2024 07/14/2025 1 1 Specialty Diagnoses / Procedures Referred By Contac t Referred To Contact Nutrition / [facility] Diagnoses Newly diagnosed diabetes (HCC) Procedures CONSULT TO NUTRITION THERAPY MEDICAL NUTRITION ASSMT&IVNTJ INDIV EACH [address] Liudmila Olivera, SPACE ENGINEER.FAST FOOD CASHIER [address] [place] [address] [place] [address] Referral ID Status Reason Start Date Expiration Date Visits Requested Visits Authorized [id number] Authorized PCP Requested Referral 07/14/2024 07/14/2025 1 4 Chief Complaint and Reason for Visit Chief Complaint TOBACCO ABUSE Chief Complaint TOBACCO ABUSE J96.11 J96.11 J96.11 J96.11 Chief Complaint COPD EXACERBATION COPD EXACERBATION COPD EXACERBATION COPD EXACERBATION COPD EXACERBATION COPD EXACERBATION COPD EXACERBATION COPD EXACERBATION Reason for Visit Erythrocytosis Leukocytosis Acute on chronic respiratory failure with hypoxia Moderate COPD (chronic obstructive pulmonary disease) Chief Complaint COPD EXACERBATION COPD EXACERBATION COPD EXACERBATION COPD EXACERBATION COPD EXACERBATION COPD EXACERBATION COPD EXACERBATION COPD EXACERBATION COPD EXACERBATION Hospital FU NICOTINE DEP Reason for Visit Leukocytosis Acute on chronic respiratory failure with hypoxia Erythrocytosis Chronic obstructive lung disease Chronic respiratory failure with hypoxia Chief Complaint COPD EXACERBATION COPD EXACERBATION COPD EXACERBATION COPD EXACERBATION COPD EXACERBATION COPD EXACERBATION COPD EXACERBATION COPD EXACERBATION COPD EXACERBATION Hospital FU NICOTINE DEP Sick Reason for Visit Leukocytosis Acute on chronic respiratory failure with hypoxia Erythrocytosis Chronic obstructive lung disease Chronic respiratory failure with hypoxia Shortness of breath Chief Complaint 1 Y FU COPD COPD Reason for Visit Chronic obstructive lung disease Chronic respiratory failure with hypoxia Chief Complaint Admit Date 4 m f u March 02, 2025 7:5 2am SOB SUSPECTED 2/2 TO MUCUS PLUGGING Apri l 2024 11:20am Reason for Visit Admit Date Chronic obstructive lung disease February 162024 7:52am Chronic respiratory failure with hypoxia March 02, 2025 7:52am Smoking greater than 30 pack years March 02, 2025 7:52am Chief Complaint Admit Date 4 m f u March 02, 2025 7:5 2am SOB SUSPECTED 2/2 TO MUCUS PLUGGING Apri l 2024 11:20am SOB SUSPECTED 2/2 TO MUCUS PLUGGING Apri l 2024 12:14pm SOB SUSPECTED 2/2 TO MUCUS PLUGGING March 18, 2025 8:53am PREOP March 18, 2025 8:59am SOB SUSPECTED 2/2 TO MUCUS PLUGGING March 18, 2025 10:24am SOB SUSPECTED 2/2 TO MUCUS PLUGGING March 19, 2025 8:25am SOB SUSPECTED 2/2 TO MUCUS PLUGGING March 19, 2025 10:31am Hospital FU April 09, 2025 9:45a m J43.2 - Centrilobular emphysema April 9:10am Reason for Visit Admit Date Chronic obstructive lung disease February 162024 7:52am Smoking greater than 30 pack years March 02, 2025 7:52am Chronic respiratory failure with hypoxia March 02, 2025 7:52am CAP (community acquired pneumonia) March 17, 2025 11:20am Acute on chronic respiratory failure wit h hypoxemia March 17, 2025 11:20am Hypoxia March 17, 2025 11: 20am Mucus plugging of bronchi March 17 11:20am Chronic respiratory failure with hypoxia March 17, 2025 11:20am Abnormal CT of the chest April 09, 2025 9:45am Chronic obstructive lung disease March 9:45am Smoking greater than 30 pack years March 192024 9:45am Chief Complaint Admit Date 4 m f u March 02, 2025 7:5 2am SOB SUSPECTED 2/2 TO MUCUS PLUGGING Apri l 2024 11:20am SOB SUSPECTED 2/2 TO MUCUS PLUGGING Apri l 2024 12:14pm SOB SUSPECTED 2/2 TO MUCUS PLUGGING March 18, 2025 8:53am PREOP March 18, 2025 8:59am SOB SUSPECTED 2/2 TO MUCUS PLUGGING March 18, 2025 10:24am SOB SUSPECTED 2/2 TO MUCUS PLUGGING March 19, 2025 8:25am SOB SUSPECTED 2/2 TO MUCUS PLUGGING March 19, 2025 10:31am Hospital April 09, 2025 9:45a m J43.2 - Centrilobular emphysema April 9:10am J43.2 - Centrilobular emphysema April 9:27am Abnormal findings on diagnostic imaging of other s May 24, 2025 8:06am Chief Complaint Admit Date 4 m f u March 02, 2025 7:5 2am SOB SUSPECTED 2/2 TO MUCUS PLUGGING Apri l 2024 11:20am SOB SUSPECTED 2/2 TO MUCUS PLUGGING Apri l 2024 12:14pm SOB SUSPECTED 2/2 TO MUCUS PLUGGING March 18, 2025 8:53am PREOP March 18, 2025 8:59am SOB SUSPECTED 2/2 TO MUCUS PLUGGING March 18, 2025 10:24am SOB SUSPECTED 2/2 TO MUCUS PLUGGING March 19, 2025 8:25am SOB SUSPECTED 2/2 TO MUCUS PLUGGING March 19, 2025 10:31am Hospital FU April 09, 2025 9:45a m J43.2 - Centrilobular emphysema April 9:10am J43.2 - Centrilobular emphysema April 9:27am Abnormal findings on diagnostic imaging of other s May 24, 2025 8:06am 3 m fu June 02, 2025 8:49 am Reason for Visit Admit Date Chronic obstructive lung disease February 162024 7:52am Smoking greater than 30 pack years March 02, 2025 7:52am Chronic respiratory failure with hypoxia March 02, 2025 7:52am CAP (community acquired pneumonia) March 17, 2025 11:20am Acute on chronic respiratory failure wit h hypoxemia March 17, 2025 11:20am Hypoxia March 17, 2025 11: 20am Mucus plugging of bronchi March 17 11:20am Chronic respiratory failure with hypoxia March 17, 2025 11:20am Abnormal CT of the chest April 09, 2025 9:45am Chronic obstructive lung disease March 9:45am Smoking greater than 30 pack years March 192024 9:45am Abnormal CT of the chest June 02, 2025 8:49am Chronic obstructive lung disease June 022024 8:49am Smoking greater than 30 pack years June 02, 2025 8:49am Health Concerns Infection Onset Date Last Indicated Resolved Time COVID-19 Confirmed 10/24/2023 10/24/2023 Additional Source Comments INFORMATION SOURCE (unrecogn ized section and content) DATE CREATED AUTHOR 12/07/2020 [facility] DATE CREATED AUTHOR AUTHOR'S ORGANIZ ATION 05/01/2025 [facility] DATE CREATED AUTHOR AUTHOR'S ORGANIZ ATION 05/08/2025 [facility] DATE CREATED AUTHOR AUTHOR'S ORGANIZ ATION 09/09/2025 [facility] DATE CREATED AUTHOR AUTHOR'S ORGANIZ ATION 09/30/2025 [facility] Source Comments (unrecognize d section and content) In the event this informatio n is protected by the Federal Confidentiality of Alcohol and Drug Abuse Patient Records regulations: The Federal rules restrict any use of the information to criminally investigate or prosecute any alcohol or drug abuse patient.[facility] the event this information is protected by the Federal Confidentiality of Alcohol and Drug Abuse Patient Records regulations: The Federal rules restrict any use of the information to criminally investigate or prosecute any alcohol or drug abuse patient.[facility] the event this information is protected by the Federal Confidentiality of Alcohol and Drug Abuse Patient Records regulations: The Federal rules restrict any use of the information to criminally investigate or prosecute any alcohol or drug abuse patient.[facility] the event this information is protected by the Federal Confidentiality of Alcohol and Drug Abuse Patient Records regulations: The Federal rules restrict any use of the information to criminally investigate or prosecute any alcohol or drug abuse patient.[facility] the event this information is protected by the Federal Confidentiality of Alcohol and Drug Abuse Patient Records regulations: The Federal rules restrict any use of the information to criminally investigate or prosecute any alcohol or drug abuse patient.[facility] Hospital[facility] the event this information is protected by the Federal Confidentiality of Alcohol and Drug Abuse Patient Records regulations: The Federal rules restrict any use of the information to criminally investigate or prosecute any alcohol or drug abuse patient.[facility] the event this information is protected by the Federal Confidentiality of Alcohol and Drug Abuse Patient Records regulations: The Federal rules restrict any use of the information to criminally investigate or prosecute any alcohol or drug abuse patient.[facility] the event this information is protected by the Federal Confidentiality of Alcohol and Drug Abuse Patient Records regulations: The Federal rules restrict any use of the information to criminally investigate or prosecute any alcohol or drug abuse patient.[facility] the event this information is protected by the Federal Confidentiality of Alcohol and Drug Abuse Patient Records regulations: The Federal rules restrict any use of the information to criminally investigate or prosecute any alcohol or drug abuse patient.[facility] the event this information is protected by the Federal Confidentiality of Alcohol and Drug Abuse Patient Records regulations: The Federal rules restrict any use of the information to criminally investigate or prosecute any alcohol or drug abuse patient.[facility] the event this information is protected by the Federal Confidentiality of Alcohol and Drug Abuse Patient Records regulations: The Federal rules restrict any use of the information to criminally investigate or prosecute any alcohol or drug abuse patient.[facility] Hospital[facility] the event this information is protected by the Federal Confidentiality of Alcohol and Drug Abuse Patient Records regulations: The Federal rules restrict any use of the information to criminally investigate or prosecute any alcohol or drug abuse patient.[facility] Hospital[facility] the event this information is protected by the Federal Confidentiality of Alcohol and Drug Abuse Patient Records regulations: The Federal rules restrict any use of the information to criminally investigate or prosecute any alcohol or drug abuse patient.[facility] Hospital[facility] the event this information is protected by the Federal Confidentiality of Alcohol and Drug Abuse Patient Records regulations: The Federal rules restrict any use of the information to criminally investigate or prosecute any alcohol or drug abuse patient.[facility] Hospital[facility] the event this information is protected by the Federal Confidentiality of Alcohol and Drug Abuse Patient Records regulations: The Federal rules restrict any use of the information to criminally investigate or prosecute any alcohol or drug abuse patient.[facility] Hospital[facility] the event this information is protected by the Federal Confidentiality of Alcohol and Drug Abuse Patient Records regulations: The Federal rules restrict any use of the information to criminally investigate or prosecute any alcohol or drug abuse patient.[facility] Hospital[facility] the event this information is protected by the Federal Confidentiality of Alcohol and Drug Abuse Patient Records regulations: The Federal rules restrict any use of the information to criminally investigate or prosecute any alcohol or drug abuse patient.[facility] Hospital[facility] the event this information is protected by the Federal Confidentiality of Alcohol and Drug Abuse Patient Records regulations: The Federal rules restrict any use of the information to criminally investigate or prosecute any alcohol or drug abuse patient.[facility] Hospital[facility] the event this information is protected by the Federal Confidentiality of Alcohol and Drug Abuse Patient Records regulations: The Federal rules restrict any use of the information to criminally investigate or prosecute any alcohol or drug abuse patient.[facility] Hospital[facility] the event this information is protected by the Federal Confidentiality of Alcohol and Drug Abuse Patient Records regulations: The Federal rules restrict any use of the information to criminally investigate or prosecute any alcohol or drug abuse patient.[facility] Hospital[facility] the event this information is protected by the Federal Confidentiality of Alcohol and Drug Abuse Patient Records regulations: The Federal rules restrict any use of the information to criminally investigate or prosecute any alcohol or drug abuse patient.[facility] Hospital[facility] the event this information is protected by the Federal Confidentiality of Alcohol and Drug Abuse Patient Records regulations: The Federal rules restrict any use of the information to criminally investigate or prosecute any alcohol or drug abuse patient.[facility] Hospital[facility] the event this information is protected by the Federal Confidentiality of Alcohol and Drug Abuse Patient Records regulations: The Federal rules restrict any use of the information to criminally investigate or prosecute any alcohol or drug abuse patient.[facility] Hospital[facility] the event this information is protected by the Federal Confidentiality of Alcohol and Drug Abuse Patient Records regulations: The Federal rules restrict any use of the information to criminally investigate or prosecute any alcohol or drug abuse patient.[facility] Hospital[facility] the event this information is protected by the Federal Confidentiality of Alcohol and Drug Abuse Patient Records regulations: The Federal rules restrict any use of the information to criminally investigate or prosecute any alcohol or drug abuse patient.[facility] Hospital[facility] the event this information is protected by the Federal Confidentiality of Alcohol and Drug Abuse Patient Records regulations: The Federal rules restrict any use of the information to criminally investigate or prosecute any alcohol or drug abuse patient.[facility] HospitalIn the event this information is protected by the Federal Confidentiality of Alcohol and Drug Abuse Patient Records regulations: The Federal rules restrict any use of the information to criminally investigate or prosecute any alcohol or drug abuse patient.[facility]In the event this information is protected by the Federal Confidentiality of Alcohol and Drug Abuse Patient Records regulations: The Federal rules restrict any use of the information to criminally investigate or prosecute any alcohol or drug abuse patient.[facility] HospitalIn the event this information is protected by the Federal Confidentiality of Alcohol and Drug Abuse Patient Records regulations: The Federal rules restrict any use of the information to criminally investigate or prosecute any alcohol or drug abuse patient.[facility] HospitalIn the event this information is protected by the Federal Confidentiality of Alcohol and Drug Abuse Patient Records regulations: The Federal rules restrict any use of the information to criminally investigate or prosecute any alcohol or drug abuse patient.[facility] HospitalIn the event this information is protected by the Federal Confidentiality of Alcohol and Drug Abuse Patient Records regulations: The Federal rules restrict any use of the information to criminally investigate or prosecute any alcohol or drug abuse patient.[facility] HospitalIn the event this information is protected by the Federal Confidentiality of Alcohol and Drug Abuse Patient Records regulations: The Federal rules restrict any use of the information to criminally investigate or prosecute any alcohol or drug abuse patient.[facility] HospitalIn the event this information is protected by the Federal Confidentiality of Alcohol and Drug Abuse Patient Records regulations: The Federal rules restrict any use of the information to criminally investigate or prosecute any alcohol or drug abuse patient.[facility] HospitalIn the event this information is protected by the Federal Confidentiality of Alcohol and Drug Abuse Patient Records regulations: The Federal rules restrict any use of the information to criminally investigate or prosecute any alcohol or drug abuse patient.[facility] HospitalIn the event this information is protected by the Federal Confidentiality of Alcohol and Drug Abuse Patient Records regulations: The Federal rules restrict any use of the information to criminally investigate or prosecute any alcohol or drug abuse patient.[facility] HospitalIn the event this information is protected by the Federal Confidentiality of Alcohol and Drug Abuse Patient Records regulations: The Federal rules restrict any use of the information to criminally investigate or prosecute any alcohol or drug abuse patient.[facility] HospitalIn the event this information is protected by the Federal Confidentiality of Alcohol and Drug Abuse Patient Records regulations: The Federal rules restrict any use of the information to criminally investigate or prosecute any alcohol or drug abuse patient.[facility] HospitalIn the event this information is protected by the Federal Confidentiality of Alcohol and Drug Abuse Patient Records regulations: The Federal rules restrict any use of the information to criminally investigate or prosecute any alcohol or drug abuse patient.[facility] HospitalIn the event this information is protected by the Federal Confidentiality of Alcohol and Drug Abuse Patient Records regulations: The Federal rules restrict any use of the information to criminally investigate or prosecute any alcohol or drug abuse patient.[facility] HospitalIn the event this information is protected by the Federal Confidentiality of Alcohol and Drug Abuse Patient Records regulations: The Federal rules restrict any use of the information to criminally investigate or prosecute any alcohol or drug abuse patient.[facility] HospitalIn the event this information is protected by the Federal Confidentiality of Alcohol and Drug Abuse Patient Records regulations: The Federal rules restrict any use of the information to criminally investigate or prosecute any alcohol or drug abuse patient.[facility] HospitalIn the event this information is protected by the Federal Confidentiality of Alcohol and Drug Abuse Patient Records regulations: The Federal rules restrict any use of the information to criminally investigate or prosecute any alcohol or drug abuse patient.[facility] HospitalIn the event this information is protected by the Federal Confidentiality of Alcohol and Drug Abuse Patient Records regulations: The Federal rules restrict any use of the information to criminally investigate or prosecute any alcohol or drug abuse patient.[facility] HospitalIn the event this information is protected by the Federal Confidentiality of Alcohol and Drug Abuse Patient Records regulations: The Federal rules restrict any use of the information to criminally investigate or prosecute any alcohol or drug abuse patient.[facility] HospitalIn the event this information is protected by the Federal Confidentiality of Alcohol and Drug Abuse Patient Records regulations: The Federal rules restrict any use of the information to criminally investigate or prosecute any alcohol or drug abuse patient.[facility] HospitalIn the event this information is protected by the Federal Confidentiality of Alcohol and Drug Abuse Patient Records regulations: The Federal rules restrict any use of the information to criminally investigate or prosecute any alcohol or drug abuse patient.[facility] HospitalIn the event this information is protected by the Federal Confidentiality of Alcohol and Drug Abuse Patient Records regulations: The Federal rules restrict any use of the information to criminally investigate or prosecute any alcohol or drug abuse patient.[facility] HospitalIn the event this information is protected by the Federal Confidentiality of Alcohol and Drug Abuse Patient Records regulations: The Federal rules restrict any use of the information to criminally investigate or prosecute any alcohol or drug abuse patient.[facility] HospitalIn the event this information is protected by the Federal Confidentiality of Alcohol and Drug Abuse Patient Records regulations: The Federal rules restrict any use of the information to criminally investigate or prosecute any alcohol or drug abuse patient.[facility] HospitalIn the event this information is protected by the Federal Confidentiality of Alcohol and Drug Abuse Patient Records regulations: The Federal rules restrict any use of the information to criminally investigate or prosecute any alcohol or drug abuse patient.[facility] HospitalIn the event this information is protected by the Federal Confidentiality of Alcohol and Drug Abuse Patient Records regulations: The Federal rules restrict any use of the information to criminally investigate or prosecute any alcohol or drug abuse patient.[facility] HospitalIn the event this information is protected by the Federal Confidentiality of Alcohol and Drug Abuse Patient Records regulations: The Federal rules restrict any use of the information to criminally investigate or prosecute any alcohol or drug abuse patient.[facility] HospitalIn the event this information is protected by the Federal Confidentiality of Alcohol and Drug Abuse Patient Records regulations: The Federal rules restrict any use of the information to criminally investigate or prosecute any alcohol or drug abuse patient.[facility] HospitalIn the event this information is protected by the Federal Confidentiality of Alcohol and Drug Abuse Patient Records regulations: The Federal rules restrict any use of the information to criminally investigate or prosecute any alcohol or drug abuse patient.[facility] HospitalIn the event this information is protected by the Federal Confidentiality of Alcohol and Drug Abuse Patient Records regulations: The Federal rules restrict any use of the information to criminally investigate or prosecute any alcohol or drug abuse patient.[facility] HospitalIn the event this information is protected by the Federal Confidentiality of Alcohol and Drug Abuse Patient Records regulations: The Federal rules restrict any use of the information to criminally investigate or prosecute any alcohol or drug abuse patient.[facility] HospitalIn the event this information is protected by the Federal Confidentiality of Alcohol and Drug Abuse Patient Records regulations: The Federal rules restrict any use of the information to criminally investigate or prosecute any alcohol or drug abuse patient.[facility] HospitalIn the event this information is protected by the Federal Confidentiality of Alcohol and Drug Abuse Patient Records regulations: The Federal rules restrict any use of the information to criminally investigate or prosecute any alcohol or drug abuse patient.[facility] HospitalIn the event this information is protected by the Federal Confidentiality of Alcohol and Drug Abuse Patient Records regulations: The Federal rules restrict any use of the information to criminally investigate or prosecute any alcohol or drug abuse patient.[facility] HospitalIn the event this information is protected by the Federal Confidentiality of Alcohol and Drug Abuse Patient Records regulations: The Federal rules restrict any use of the information to criminally investigate or prosecute any alcohol or drug abuse patient.[facility] HospitalIn the event this information is protected by the Federal Confidentiality of Alcohol and Drug Abuse Patient Records regulations: The Federal rules restrict any use of the information to criminally investigate or prosecute any alcohol or drug abuse patient.[facility] HospitalIn the event this information is protected by the Federal Confidentiality of Alcohol and Drug Abuse Patient Records regulations: The Federal rules restrict any use of the information to criminally investigate or prosecute any alcohol or drug abuse patient.[facility] HospitalIn the event this information is protected by the Federal Confidentiality of Alcohol and Drug Abuse Patient Records regulations: The Federal rules restrict any use of the information to criminally investigate or prosecute any alcohol or drug abuse patient.[facility] HospitalIn the event this information is protected by the Federal Confidentiality of Alcohol and Drug Abuse Patient Records regulations: The Federal rules restrict any use of the information to criminally investigate or prosecute any alcohol or drug abuse patient.[facility] HospitalIn the event this information is protected by the Federal Confidentiality of Alcohol and Drug Abuse Patient Records regulations: The Federal rules restrict any use of the information to criminally investigate or prosecute any alcohol or drug abuse patient.[facility] HospitalIn the event this information is protected by the Federal Confidentiality of Alcohol and Drug Abuse Patient Records regulations: The Federal rules restrict any use of the information to criminally investigate or prosecute any alcohol or drug abuse patient.[facility] HospitalIn the event this information is protected by the Federal Confidentiality of Alcohol and Drug Abuse Patient Records regulations: The Federal rules restrict any use of the information to criminally investigate or prosecute any alcohol or drug abuse patient.[facility] HospitalIn the event this information is protected by the Federal Confidentiality of Alcohol and Drug Abuse Patient Records regulations: The Federal rules restrict any use of the information to criminally investigate or prosecute any alcohol or drug abuse patient.[facility] HospitalIn the event this information is protected by the Federal Confidentiality of Alcohol and Drug Abuse Patient Records regulations: The Federal rules restrict any use of the information to criminally investigate or prosecute any alcohol or drug abuse patient.[facility] HospitalIn the event this information is protected by the Federal Confidentiality of Alcohol and Drug Abuse Patient Records regulations: The Federal rules restrict any use of the information to criminally investigate or prosecute any alcohol or drug abuse patient.[facility] HospitalIn the event this information is protected by the Federal Confidentiality of Alcohol and Drug Abuse Patient Records regulations: The Federal rules restrict any use of the information to criminally investigate or prosecute any alcohol or drug abuse patient.[facility] HospitalIn the event this information is protected by the Federal Confidentiality of Alcohol and Drug Abuse Patient Records regulations: The Federal rules restrict any use of the information to criminally investigate or prosecute any alcohol or drug abuse patient.[facility] HospitalIn the event this information is protected by the Federal Confidentiality of Alcohol and Drug Abuse Patient Records regulations: The Federal rules restrict any use of the information to criminally investigate or prosecute any alcohol or drug abuse patient.[facility] HospitalIn the event this information is protected by the Federal Confidentiality of Alcohol and Drug Abuse Patient Records regulations: The Federal rules restrict any use of the information to criminally investigate or prosecute any alcohol or drug abuse patient.[facility] HospitalIn the event this information is protected by the Federal Confidentiality of Alcohol and Drug Abuse Patient Records regulations: The Federal rules restrict any use of the information to criminally investigate or prosecute any alcohol or drug abuse patient.[facility] HospitalIn the event this information is protected by the Federal Confidentiality of Alcohol and Drug Abuse Patient Records regulations: The Federal rules restrict any use of the information to criminally investigate or prosecute any alcohol or drug abuse patient.[facility] HospitalIn the event this information is protected by the Federal Confidentiality of Alcohol and Drug Abuse Patient Records regulations: The Federal rules restrict any use of the information to criminally investigate or prosecute any alcohol or drug abuse patient.[facility] HospitalIn the event this information is protected by the Federal Confidentiality of Alcohol and Drug Abuse Patient Records regulations: The Federal rules restrict any use of the information to criminally investigate or prosecute any alcohol or drug abuse patient.[facility] HospitalIn the event this information is protected by the Federal Confidentiality of Alcohol and Drug Abuse Patient Records regulations: The Federal rules restrict any use of the information to criminally investigate or prosecute any alcohol or drug abuse patient.[facility] HospitalIn the event this information is protected by the Federal Confidentiality of Alcohol and Drug Abuse Patient Records regulations: The Federal rules restrict any use of the information to criminally investigate or prosecute any alcohol or drug abuse patient.[facility] HospitalIn the event this information is protected by the Federal Confidentiality of Alcohol and Drug Abuse Patient Records regulations: The Federal rules restrict any use of the information to criminally investigate or prosecute any alcohol or drug abuse patient.[facility] HospitalIn the event this information is protected by the Federal Confidentiality of Alcohol and Drug Abuse Patient Records regulations: The Federal rules restrict any use of the information to criminally investigate or prosecute any alcohol or drug abuse patient.[facility] HospitalIn the event this information is protected by the Federal Confidentiality of Alcohol and Drug Abuse Patient Records regulations: The Federal rules restrict any use of the information to criminally investigate or prosecute any alcohol or drug abuse patient.[facility] HospitalIn the event this information is protected by the Federal Confidentiality of Alcohol and Drug Abuse Patient Records regulations: The Federal rules restrict any use of the information to criminally investigate or prosecute any alcohol or drug abuse patient.[facility] HospitalIn the event this information is protected by the Federal Confidentiality of Alcohol and Drug Abuse Patient Records regulations: The Federal rules restrict any use of the information to criminally investigate or prosecute any alcohol or drug abuse patient.[facility] HospitalIn the event this information is protected by the Federal Confidentiality of Alcohol and Drug Abuse Patient Records regulations: The Federal rules restrict any use of the information to criminally investigate or prosecute any alcohol or drug abuse patient.[facility] HospitalIn the event this information is protected by the Federal Confidentiality of Alcohol and Drug Abuse Patient Records regulations: The Federal rules restrict any use of the information to criminally investigate or prosecute any alcohol or drug abuse patient.[facility] HospitalIn the event this information is protected by the Federal Confidentiality of Alcohol and Drug Abuse Patient Records regulations: The Federal rules restrict any use of the information to criminally investigate or prosecute any alcohol or drug abuse patient.[facility] HospitalIn the event this information is protected by the Federal Confidentiality of Alcohol and Drug Abuse Patient Records regulations: The Federal rules restrict any use of the information to criminally investigate or prosecute any alcohol or drug abuse patient.[facility] HospitalIn the event this information is protected by the Federal Confidentiality of Alcohol and Drug Abuse Patient Records regulations: The Federal rules restrict any use of the information to criminally investigate or prosecute any alcohol or drug abuse patient.[facility] HospitalIn the event this information is protected by the Federal Confidentiality of Alcohol and Drug Abuse Patient Records regulations: The Federal rules restrict any use of the information to criminally investigate or prosecute any alcohol or drug abuse patient.[facility] HospitalIn the event this information is protected by the Federal Confidentiality of Alcohol and Drug Abuse Patient Records regulations: The Federal rules restrict any use of the information to criminally investigate or prosecute any alcohol or drug abuse patient.[facility] HospitalIn the event this information is protected by the Federal Confidentiality of Alcohol and Drug Abuse Patient Records regulations: The Federal rules restrict any use of the information to criminally investigate or prosecute any alcohol or drug abuse patient.[facility] HospitalIn the event this information is protected by the Federal Confidentiality of Alcohol and Drug Abuse Patient Records regulations: The Federal rules restrict any use of the information to criminally investigate or prosecute any alcohol or drug abuse patient.[facility] HospitalIn the event this information is protected by the Federal Confidentiality of Alcohol and Drug Abuse Patient Records regulations: The Federal rules restrict any use of the information to criminally investigate or prosecute any alcohol or drug abuse patient.[facility] HospitalIn the event this information is protected by the Federal Confidentiality of Alcohol and Drug Abuse Patient Records regulations: The Federal rules restrict any use of the information to criminally investigate or prosecute any alcohol or drug abuse patient.[facility] HospitalIn the event this information is protected by the Federal Confidentiality of Alcohol and Drug Abuse Patient Records regulations: The Federal rules restrict any use of the information to criminally investigate or prosecute any alcohol or drug abuse patient.[facility] HospitalIn the event this information is protected by the Federal Confidentiality of Alcohol and Drug Abuse Patient Records regulations: The Federal rules restrict any use of the information to criminally investigate or prosecute any alcohol or drug abuse patient.[facility] HospitalIn the event this information is protected by the Federal Confidentiality of Alcohol and Drug Abuse Patient Records regulations: The Federal rules restrict any use of the information to criminally investigate or prosecute any alcohol or drug abuse patient.[facility] HospitalIn the event this information is protected by the Federal Confidentiality of Alcohol and Drug Abuse Patient Records regulations: The Federal rules restrict any use of the information to criminally investigate or prosecute any alcohol or drug abuse patient.[facility] HospitalIn the event this information is protected by the Federal Confidentiality of Alcohol and Drug Abuse Patient Records regulations: The Federal rules restrict any use of the information to criminally investigate or prosecute any alcohol or drug abuse patient.[facility] HospitalIn the event this information is protected by the Federal Confidentiality of Alcohol and Drug Abuse Patient Records regulations: The Federal rules restrict any use of the information to criminally investigate or prosecute any alcohol or drug abuse patient.[facility] HospitalIn the event this information is protected by the Federal Confidentiality of Alcohol and Drug Abuse Patient Records regulations: The Federal rules restrict any use of the information to criminally investigate or prosecute any alcohol or drug abuse patient.[facility] HospitalIn the event this information is protected by the Federal Confidentiality of Alcohol and Drug Abuse Patient Records regulations: The Federal rules restrict any use of the information to criminally investigate or prosecute any alcohol or drug abuse patient.[facility] HospitalIn the event this information is protected by the Federal Confidentiality of Alcohol and Drug Abuse Patient Records regulations: The Federal rules restrict any use of the information to criminally investigate or prosecute any alcohol or drug abuse patient.[facility] HospitalIn the event this information is protected by the Federal Confidentiality of Alcohol and Drug Abuse Patient Records regulations: The Federal rules restrict any use of the information to criminally investigate or prosecute any alcohol or drug abuse patient.[facility] HospitalIn the event this information is protected by the Federal Confidentiality of Alcohol and Drug Abuse Patient Records regulations: The Federal rules restrict any use of the information to criminally investigate or prosecute any alcohol or drug abuse patient.[facility] HospitalIn the event this information is protected by the Federal Confidentiality of Alcohol and Drug Abuse Patient Records regulations: The Federal rules restrict any use of the information to criminally investigate or prosecute any alcohol or drug abuse patient.[facility] HospitalIn the event this information is protected by the Federal Confidentiality of Alcohol and Drug Abuse Patient Records regulations: The Federal rules restrict any use of the information to criminally investigate or prosecute any alcohol or drug abuse patient.[facility]In the event this information is protected by the Federal Confidentiality of Alcohol and Drug Abuse Patient Records regulations: The Federal rules restrict any use of the information to criminally investigate or prosecute any alcohol or drug abuse patient.[facility]In the event this information is protected by the Federal Confidentiality of Alcohol and Drug Abuse Patient Records regulations: The Federal rules restrict any use of the information to criminally investigate or prosecute any alcohol or drug abuse patient.[facility]In the event this information is protected by the Federal Confidentiality of Alcohol and Drug Abuse Patient Records regulations: The Federal rules restrict any use of the information to criminally investigate or prosecute any alcohol or drug abuse patient.[facility]In the event this information is protected by the Federal Confidentiality of Alcohol and Drug Abuse Patient Records regulations: The Federal rules restrict any use of the information to criminally investigate or prosecute any alcohol or drug abuse patient.[facility] HospitalIn the event this information is protected by the Federal Confidentiality of Alcohol and Drug Abuse Patient Records regulations: The Federal rules restrict any use of the information to criminally investigate or prosecute any alcohol or drug abuse patient.[facility] HospitalIn the event this information is protected by the Federal Confidentiality of Alcohol and Drug Abuse Patient Records regulations: The Federal rules restrict any use of the information to criminally investigate or prosecute any alcohol or drug abuse patient.[facility] HospitalIn the event this information is protected by the Federal Confidentiality of Alcohol and Drug Abuse Patient Records regulations: The Federal rules restrict any use of the information to criminally investigate or prosecute any alcohol or drug abuse patient.[facility] HospitalIn the event this information is protected by the Federal Confidentiality of Alcohol and Drug Abuse Patient Records regulations: The Federal rules restrict any use of the information to criminally investigate or prosecute any alcohol or drug abuse patient.[facility] HospitalIn the event this information is protected by the Federal Confidentiality of Alcohol and Drug Abuse Patient Records regulations: The Federal rules restrict any use of the information to criminally investigate or prosecute any alcohol or drug abuse patient.[facility] HospitalIn the event this information is protected by the Federal Confidentiality of Alcohol and Drug Abuse Patient Records regulations: The Federal rules restrict any use of the information to criminally investigate or prosecute any alcohol or drug abuse patient.[facility] HospitalIn the event this information is protected by the Federal Confidentiality of Alcohol and Drug Abuse Patient Records regulations: The Federal rules restrict any use of the information to criminally investigate or prosecute any alcohol or drug abuse patient.[facility] HospitalIn the event this information is protected by the Federal Confidentiality of Alcohol and Drug Abuse Patient Records regulations: The Federal rules restrict any use of the information to criminally investigate or prosecute any alcohol or drug abuse patient.[facility] HospitalIn the event this information is protected by the Federal Confidentiality of Alcohol and Drug Abuse Patient Records regulations: The Federal rules restrict any use of the information to criminally investigate or prosecute any alcohol or drug abuse patient.[facility] HospitalIn the event this information is protected by the Federal Confidentiality of Alcohol and Drug Abuse Patient Records regulations: The Federal rules restrict any use of the information to criminally investigate or prosecute any alcohol or drug abuse patient.[facility] HospitalIn the event this information is protected by the Federal Confidentiality of Alcohol and Drug Abuse Patient Records regulations: The Federal rules restrict any use of the information to criminally investigate or prosecute any alcohol or drug abuse patient.[facility] HospitalIn the event this information is protected by the Federal Confidentiality of Alcohol and Drug Abuse Patient Records regulations: The Federal rules restrict any use of the information to criminally investigate or prosecute any alcohol or drug abuse patient.[facility] HospitalIn the event this information is protected by the Federal Confidentiality of Alcohol and Drug Abuse Patient Records regulations: The Federal rules restrict any use of the information to criminally investigate or prosecute any alcohol or drug abuse patient.[facility] HospitalIn the event this information is protected by the Federal Confidentiality of Alcohol and Drug Abuse Patient Records regulations: The Federal rules restrict any use of the information to criminally investigate or prosecute any alcohol or drug abuse patient.[facility] HospitalIn the event this information is protected by the Federal Confidentiality of Alcohol and Drug Abuse Patient Records regulations: The Federal rules restrict any use of the information to criminally investigate or prosecute any alcohol or drug abuse patient.[facility] HospitalIn the event this information is protected by the Federal Confidentiality of Alcohol and Drug Abuse Patient Records regulations: The Federal rules restrict any use of the information to criminally investigate or prosecute any alcohol or drug abuse patient.[facility] HospitalIn the event this information is protected by the Federal Confidentiality of Alcohol and Drug Abuse Patient Records regulations: The Federal rules restrict any use of the information to criminally investigate or prosecute any alcohol or drug abuse patient.[facility] HospitalIn the event this information is protected by the Federal Confidentiality of Alcohol and Drug Abuse Patient Records regulations: The Federal rules restrict any use of the information to criminally investigate or prosecute any alcohol or drug abuse patient.[facility] HospitalIn the event this information is protected by the Federal Confidentiality of Alcohol and Drug Abuse Patient Records regulations: The Federal rules restrict any use of the information to criminally investigate or prosecute any alcohol or drug abuse patient.[facility] HospitalIn the event this information is protected by the Federal Confidentiality of Alcohol and Drug Abuse Patient Records regulations: The Federal rules restrict any use of the information to criminally investigate or prosecute any alcohol or drug abuse patient.[facility] HospitalIn the event this information is protected by the Federal Confidentiality of Alcohol and Drug Abuse Patient Records regulations: The Federal rules restrict any use of the information to criminally investigate or prosecute any alcohol or drug abuse patient.[facility] HospitalIn the event this information is protected by the Federal Confidentiality of Alcohol and Drug Abuse Patient Records regulations: The Federal rules restrict any use of the information to criminally investigate or prosecute any alcohol or drug abuse patient.[facility] HospitalIn the event this information is protected by the Federal Confidentiality of Alcohol and Drug Abuse Patient Records regulations: The Federal rules restrict any use of the information to criminally investigate or prosecute any alcohol or drug abuse patient.[facility] HospitalIn the event this information is protected by the Federal Confidentiality of Alcohol and Drug Abuse Patient Records regulations: The Federal rules restrict any use of the information to criminally investigate or prosecute any alcohol or drug abuse patient.[facility] HospitalIn the event this information is protected by the Federal Confidentiality of Alcohol and Drug Abuse Patient Records regulations: The Federal rules restrict any use of the information to criminally investigate or prosecute any alcohol or drug abuse patient.[facility] HospitalIn the event this information is protected by the Federal Confidentiality of Alcohol and Drug Abuse Patient Records regulations: The Federal rules restrict any use of the information to criminally investigate or prosecute any alcohol or drug abuse patient.[facility] HospitalIn the event this information is protected by the Federal Confidentiality of Alcohol and Drug Abuse Patient Records regulations: The Federal rules restrict any use of the information to criminally investigate or prosecute any alcohol or drug abuse patient.[facility] HospitalIn the event this information is protected by the Federal Confidentiality of Alcohol and Drug Abuse Patient Records regulations: The Federal rules restrict any use of the information to criminally investigate or prosecute any alcohol or drug abuse patient.[facility] HospitalIn the event this information is protected by the Federal Confidentiality of Alcohol and Drug Abuse Patient Records regulations: The Federal rules restrict any use of the information to criminally investigate or prosecute any alcohol or drug abuse patient.[facility] HospitalIn the event this information is protected by the Federal Confidentiality of Alcohol and Drug Abuse Patient Records regulations: The Federal rules restrict any use of the information to criminally investigate or prosecute any alcohol or drug abuse patient.[facility] HospitalIn the event this information is protected by the Federal Confidentiality of Alcohol and Drug Abuse Patient Records regulations: The Federal rules restrict any use of the information to criminally investigate or prosecute any alcohol or drug abuse patient.[facility] HospitalIn the event this information is protected by the Federal Confidentiality of Alcohol and Drug Abuse Patient Records regulations: The Federal rules restrict any use of the information to criminally investigate or prosecute any alcohol or drug abuse patient.[facility] HospitalIn the event this information is protected by the Federal Confidentiality of Alcohol and Drug Abuse Patient Records regulations: The Federal rules restrict any use of the information to criminally investigate or prosecute any alcohol or drug abuse patient.[facility] HospitalIn the event this information is protected by the Federal Confidentiality of Alcohol and Drug Abuse Patient Records regulations: The Federal rules restrict any use of the information to criminally investigate or prosecute any alcohol or drug abuse patient.[facility] HospitalIn the event this information is protected by the Federal Confidentiality of Alcohol and Drug Abuse Patient Records regulations: The Federal rules restrict any use of the information to criminally investigate or prosecute any alcohol or drug abuse patient.[facility] HospitalIn the event this information is protected by the Federal Confidentiality of Alcohol and Drug Abuse Patient Records regulations: The Federal rules restrict any use of the information to criminally investigate or prosecute any alcohol or drug abuse patient.[facility] HospitalIn the event this information is protected by the Federal Confidentiality of Alcohol and Drug Abuse Patient Records regulations: The Federal rules restrict any use of the information to criminally investigate or prosecute any alcohol or drug abuse patient.[facility] HospitalIn the event this information is protected by the Federal Confidentiality of Alcohol and Drug Abuse Patient Records regulations: The Federal rules restrict any use of the information to criminally investigate or prosecute any alcohol or drug abuse patient.[facility] HospitalIn the event this information is protected by the Federal Confidentiality of Alcohol and Drug Abuse Patient Records regulations: The Federal rules restrict any use of the information to criminally investigate or prosecute any alcohol or drug abuse patient.[facility] HospitalIn the event this information is protected by the Federal Confidentiality of Alcohol and Drug Abuse Patient Records regulations: The Federal rules restrict any use of the information to criminally investigate or prosecute any alcohol or drug abuse patient.[facility] HospitalIn the event this information is protected by the Federal Confidentiality of Alcohol and Drug Abuse Patient Records regulations: The Federal rules restrict any use of the information to criminally investigate or prosecute any alcohol or drug abuse patient.[facility] HospitalIn the event this information is protected by the Federal Confidentiality of Alcohol and Drug Abuse Patient Records regulations: The Federal rules restrict any use of the information to criminally investigate or prosecute any alcohol or drug abuse patient.[facility] HospitalIn the event this information is protected by the Federal Confidentiality of Alcohol and Drug Abuse Patient Records regulations: The Federal rules restrict any use of the information to criminally investigate or prosecute any alcohol or drug abuse patient.[facility] HospitalIn the event this information is protected by the Federal Confidentiality of Alcohol and Drug Abuse Patient Records regulations: The Federal rules restrict any use of the information to criminally investigate or prosecute any alcohol or drug abuse patient.[facility] HospitalIn the event this information is protected by the Federal Confidentiality of Alcohol and Drug Abuse Patient Records regulations: The Federal rules restrict any use of the information to criminally investigate or prosecute any alcohol or drug abuse patient.[facility] HospitalIn the event this information is protected by the Federal Confidentiality of Alcohol and Drug Abuse Patient Records regulations: The Federal rules restrict any use of the information to criminally investigate or prosecute any alcohol or drug abuse patient.[facility] HospitalIn the event this information is protected by the Federal Confidentiality of Alcohol and Drug Abuse Patient Records regulations: The Federal rules restrict any use of the information to criminally investigate or prosecute any alcohol or drug abuse patient.[facility] HospitalIn the event this information is protected by the Federal Confidentiality of Alcohol and Drug Abuse Patient Records regulations: The Federal rules restrict any use of the information to criminally investigate or prosecute any alcohol or drug abuse patient.[facility] HospitalIn the event this information is protected by the Federal Confidentiality of Alcohol and Drug Abuse Patient Records regulations: The Federal rules restrict any use of the information to criminally investigate or prosecute any alcohol or drug abuse patient.[facility]In the event this information is protected by the Federal Confidentiality of Alcohol and Drug Abuse Patient Records regulations: The Federal rules restrict any use of the information to criminally investigate or prosecute any alcohol or drug abuse patient.[facility] HospitalIn the event this information is protected by the Federal Confidentiality of Alcohol and Drug Abuse Patient Records regulations: The Federal rules restrict any use of the information to criminally investigate or prosecute any alcohol or drug abuse patient.[facility] HospitalIn the event this information is protected by the Federal Confidentiality of Alcohol and Drug Abuse Patient Records regulations: The Federal rules restrict any use of the information to criminally investigate or prosecute any alcohol or drug abuse patient.[facility] HospitalIn the event this information is protected by the Federal Confidentiality of Alcohol and Drug Abuse Patient Records regulations: The Federal rules restrict any use of the information to criminally investigate or prosecute any alcohol or drug abuse patient.[facility] HospitalIn the event this information is protected by the Federal Confidentiality of Alcohol and Drug Abuse Patient Records regulations: The Federal rules restrict any use of the information to criminally investigate or prosecute any alcohol or drug abuse patient.[facility] HospitalIn the event this information is protected by the Federal Confidentiality of Alcohol and Drug Abuse Patient Records regulations: The Federal rules restrict any use of the information to criminally investigate or prosecute any alcohol or drug abuse patient.[facility] HospitalIn the event this information is protected by the Federal Confidentiality of Alcohol and Drug Abuse Patient Records regulations: The Federal rules restrict any use of the information to criminally investigate or prosecute any alcohol or drug abuse patient.[facility] HospitalIn the event this information is protected by the Federal Confidentiality of Alcohol and Drug Abuse Patient Records regulations: The Federal rules restrict any use of the information to criminally investigate or prosecute any alcohol or drug abuse patient.[facility] HospitalIn the event this information is protected by the Federal Confidentiality of Alcohol and Drug Abuse Patient Records regulations: The Federal rules restrict any use of the information to criminally investigate or prosecute any alcohol or drug abuse patient.[facility] HospitalIn the event this information is protected by the Federal Confidentiality of Alcohol and Drug Abuse Patient Records regulations: The Federal rules restrict any use of the information to criminally investigate or prosecute any alcohol or drug abuse patient.[facility] HospitalIn the event this information is protected by the Federal Confidentiality of Alcohol and Drug Abuse Patient Records regulations: The Federal rules restrict any use of the information to criminally investigate or prosecute any alcohol or drug abuse patient.[facility] HospitalIn the event this information is protected by the Federal Confidentiality of Alcohol and Drug Abuse Patient Records regulations: The Federal rules restrict any use of the information to criminally investigate or prosecute any alcohol or drug abuse patient.[facility] HospitalIn the event this information is protected by the Federal Confidentiality of Alcohol and Drug Abuse Patient Records regulations: The Federal rules restrict any use of the information to criminally investigate or prosecute any alcohol or drug abuse patient.[facility] HospitalIn the event this information is protected by the Federal Confidentiality of Alcohol and Drug Abuse Patient Records regulations: The Federal rules restrict any use of the information to criminally investigate or prosecute any alcohol or drug abuse patient.[facility]In the event this information is protected by the Federal Confidentiality of Alcohol and Drug Abuse Patient Records regulations: The Federal rules restrict any use of the information to criminally investigate or prosecute any alcohol or drug abuse patient.[facility] HospitalIn the event this information is protected by the Federal Confidentiality of Alcohol and Drug Abuse Patient Records regulations: The Federal rules restrict any use of the information to criminally investigate or prosecute any alcohol or drug abuse patient.[facility]In the event this information is protected by the Federal Confidentiality of Alcohol and Drug Abuse Patient Records regulations: The Federal rules restrict any use of the information to criminally investigate or prosecute any alcohol or drug abuse patient.[facility]In the event this information is protected by the Federal Confidentiality of Alcohol and Drug Abuse Patient Records regulations: The Federal rules restrict any use of the information to criminally investigate or prosecute any alcohol or drug abuse patient.[facility]In the event this information is protected by the Federal Confidentiality of Alcohol and Drug Abuse Patient Records regulations: The Federal rules restrict any use of the information to criminally investigate or prosecute any alcohol or drug abuse patient.[facility]In the event this information is protected by the Federal Confidentiality of Alcohol and Drug Abuse Patient Records regulations: The Federal rules restrict any use of the information to criminally investigate or prosecute any alcohol or drug abuse patient.[facility]In the event this information is protected by the Federal Confidentiality of Alcohol and Drug Abuse Patient Records regulations: The Federal rules restrict any use of the information to criminally investigate or prosecute any alcohol or drug abuse patient.[facility]In the event this information is protected by the Federal Confidentiality of Alcohol and Drug Abuse Patient Records regulations: The Federal rules restrict any use of the information to criminally investigate or prosecute any alcohol or drug abuse patient.[facility]In the event this information is protected by the Federal Confidentiality of Alcohol and Drug Abuse Patient Records regulations: The Federal rules restrict any use of the information to criminally investigate or prosecute any alcohol or drug abuse patient.[facility]In the event this information is protected by the Federal Confidentiality of Alcohol and Drug Abuse Patient Records regulations: The Federal rules restrict any use of the information to criminally investigate or prosecute any alcohol or drug abuse patient.[facility]In the event this information is protected by the Federal Confidentiality of Alcohol and Drug Abuse Patient Records regulations: The Federal rules restrict any use of the information to criminally investigate or prosecute any alcohol or drug abuse patient.[facility]In the event this information is protected by the Federal Confidentiality of Alcohol and Drug Abuse Patient Records regulations: The Federal rules restrict any use of the information to criminally investigate or prosecute any alcohol or drug abuse patient.[facility]In the event this information is protected by the Federal Confidentiality of Alcohol and Drug Abuse Patient Records regulations: The Federal rules restrict any use of the information to criminally investigate or prosecute any alcohol or drug abuse patient.[facility]In the event this information is protected by the Federal Confidentiality of Alcohol and Drug Abuse Patient Records regulations: The Federal rules restrict any use of the information to criminally investigate or prosecute any alcohol or drug abuse patient.[facility]In the event this information is protected by the Federal Confidentiality of Alcohol and Drug Abuse Patient Records regulations: The Federal rules restrict any use of the information to criminally investigate or prosecute any alcohol or drug abuse patient.[facility] [facility] the event this information is protected by the Federal Confidentiality of Alcohol and Drug Abuse Patient Records regulations: The Federal rules restrict any use of the information to criminally investigate or prosecute any alcohol or drug abuse patient.[facility] the event this information is protected by the Federal Confidentiality of Alcohol and Drug Abuse Patient Records regulations: The Federal rules restrict any use of the information to criminally investigate or prosecute any alcohol or drug abuse patient.[facility] Hospital[facility] the event this information is protected by the Federal Confidentiality of Alcohol and Drug Abuse Patient Records regulations: The Federal rules restrict any use of the information to criminally investigate or prosecute any alcohol or drug abuse patient.[facility] HospitalIn the event this information is protected by the Federal Confidentiality of Alcohol and Drug Abuse Patient Records regulations: The Federal rules restrict any use of the information to criminally investigate or prosecute any alcohol or drug abuse patient.[facility] HospitalIn the event this information is protected by the Federal Confidentiality of Alcohol and Drug Abuse Patient Records regulations: The Federal rules restrict any use of the information to criminally investigate or prosecute any alcohol or drug abuse patient.[facility] HospitalIn the event this information is protected by the Federal Confidentiality of Alcohol and Drug Abuse Patient Records regulations: The Federal rules restrict any use of the information to criminally investigate or prosecute any alcohol or drug abuse patient.[facility] HospitalIn the event this information is protected by the Federal Confidentiality of Alcohol and Drug Abuse Patient Records regulations: The Federal rules restrict any use of the information to criminally investigate or prosecute any alcohol or drug abuse patient.[facility] HospitalIn the event this information is protected by the Federal Confidentiality of Alcohol and Drug Abuse Patient Records regulations: The Federal rules restrict any use of the information to criminally investigate or prosecute any alcohol or drug abuse patient.[facility] HospitalIn the event this information is protected by the Federal Confidentiality of Alcohol and Drug Abuse Patient Records regulations: The Federal rules restrict any use of the information to criminally investigate or prosecute any alcohol or drug abuse patient.[facility] HospitalIn the event this information is protected by the Federal Confidentiality of Alcohol and Drug Abuse Patient Records regulations: The Federal rules restrict any use of the information to criminally investigate or prosecute any alcohol or drug abuse patient.[facility] Reason for Visit (unrecogniz ed section and content) Reason Comments Cardiac Rehab Reason Comments Refill Request Reason Comments Urinary Frequency has been going on fo r 2 days Reason Comments Results Reason Onset Date Comments Refill Request 03/12/2022 Reason Comments Hypertension COPD Reason Comments Patient Question Reason Onset Date Comments Refill Request 05/09/2022 Reason Comments Orders Reason Onset Date Comments Refill Request 05/16/2022 Specialty Diagnoses / Procedures Referred By Marilou guzman Referred To Contact [facility] Diagnoses Postlaminectomy syndrome, not elsewhere classified Other cervical disc degeneration at C6-C7 level Other spondylosis with radiculopathy, cervical region m96.1 post laminectomy , m50.323 other cervical disc degeneration , m47.22 other spondylosis , patient has order Procedures MRI SPINAL CANAL CERVICAL W/O & W/CONTR MATRL MRI WWO NEU1 B [address] Sylvie Huerta [address] [place] [address] [facility] [place] [facility] [address] [place] [address] Referral ID Status Reason Start Date Expiration Date Visits Re quested Visits Authorized [id number] Closed 07/04/2022 09/02/2022 1 1 Reason Onset Date Comments Refill Request 11/14/2022 Reason Comments Incontinence Reason Comments Cough Productive cough, cr amp in rib and back from coughing. X 3 days tested negative for covid yesterday. Sinus Infection,frequent/recurring X 1 w [place]. Reason Comments Sore Throat Reason Comments Sore Throat Loss of voice starte d yeterday Cough Started today. Hurts to cough Headache Covid test negative this am Reason Onset Date Comments Refill Request 01/14/2023 Reason Comments Hypothyroidism COPD Ear Pain Left ear, also sinus problems and laryngitis . Wants thyroid scan . Wants cefdinir. (Omincef) Reason Comments ER F/U Cyst, medication is making her sick . Doxycyline makes her stomach cramp and vomit. She stopped taking it Reason Comments Consult Abscess of labia Specialty Diagnoses / Procedures Referred By Marilou guzman Referred To Contact General Surgery Diagnoses Abscess of labia Procedures CONSULT TO GENERAL SURGERY OFFICE/OUTPATIENT NEW HIGH MDM 60-74 MINUTES Liudmila Olivera, SPACE ENGINEER.FAST FOOD CASHIER [address] [place] [address] Referral ID Status Reason Start Date Expiration Date Visits Requested Visits Authorized [id number] Pending Review PCP Requested Referral 03/25/2023 03/24/2024 1 1 Reason Comments Medication Problem Reason Comments ER F/U Feeling better Reason Onset Date Comments Transition Of Care 07/01/2023 [facility] 06/30/2023 TCM encounter Reason Comments ER F/U Wants lozenges to st op smoking. Reason Comments Lab Orders Reason Comments COPD Had a flu shot then Saturday she started getting a sore throat Started: Mondaysymptoms: Bilateral ear pain, cough, sore throat, chest hurts, sinus pain, nasal congestion, drainage, headache, and fatigueTreatment: wearing oxygen, mucinexCovid Test: negative has done 2 test Reason Comments Sinus Infection,frequent/recurring A lot of sinus drainage Cough Thick productive cou gh. Using mucinex started 3 days Reason Comments Patient Update Reason Comments UTI Kidney Started yeste rday. Having trouble urinating for about 3 weeks Reason Comments Sore Throat X 1 week. Reason Comments Electronic Communication Incontinent sup plies Reason Onset Date Comments Refill Request 01/20/2024 Reason Comments Electronic Communication Medical supplie s leila. Reason Onset Date Comments Refill Request 03/17/2024 Reason Comments Reminder To Have Labs Drawn Reason Comments Results TSH Reason Onset Date Comments Allied Health Visit 04/07/2024 SPC Reason Comments Blood Pressure Reason Comments Medicare Wellness Exam Reason Comments Follow Up Reason Comments UTI Duration: Saturday nig htDescription: burning, frequency, pain when voiding Reason Comments F/U Diabetes 3 Month Reason Comments new Dx DM Specialty Diagnoses / Procedures Referred By Contac t Referred To Contact Nutrition / [facility] Diagnoses Newly diagnosed diabetes (HCC) Procedures CONSULT TO NUTRITION THERAPY MEDICAL NUTRITION ASSMT&IVNTJ INDIV EACH [address] Liudmila Olivera APRN.FAST FOOD CASHIER [address] [place] [address] [facility] [place] [address] [place] [address] Referral ID Status Reason Start Date Expiration Date Visits Requested Visits Authorized [id number] Authorized PCP Requested Referral 07/14/2024 07/14/2025 1 4 Reason Onset Date Comments Refill Request 07/24/2024 Reason Comments Abscess In groin area. Notif ied it about a few weeks ago. It got bigger. Reason Comments Hospital F/U Reason Comments ER F/U Starting to swell up again Reason Comments New Patient Follow up [place] [facility] Reason Comments cellulitis of right groin follow up Stat es it started bothering her again on Saturday, unsure if it is the cellulitis or the incision from the surgery but she saw Dr. Villegas last Saturday and told her it was not infected and it is doing what it is supposed to do Reason Comments Patient Question Wound has pus Reason Onset Date Comments Population Health Navigation Outreach 09/09/2024 [place] Attributed Member - Care Gap Chart Review Reason Comments Diabetes Reason Comments Electronic Communication C[employer]ource form Reason Onset Date Comments Refill Request 10/20/2024 Reason Comments Electronic Communication Incontinence it ems Reason Comments saw dr. geiger on 10/21/2024 for ingrown n ail . took nail off Right big toe Reason Comments Cough X 5 days. Pain in up per right side and goes around her chest. Now having left upper back pain. Mostly dry cough. Also stuffy and runny nose. Reason Comments Results CXR Reason Comments Electronic Communication [employer] form Reason Comments Follow Up Follow upHx of HTN, HLD, ectatic thoracic aorta, Fam hx, aortic valve regurgitationECHO 12/15/2024ECG 04/03/2024Echo results Reason Onset Date Comments Results 03/02/2025 Reason Comments Consult D/T for Follow up co lonoscopy. Hx polyps Specialty Diagnoses / Procedures Referred By Marilou guzman Referred To Contact General Surgery / [facility]PART[facility] Diagnoses History of colonic polyps Encounter for colorectal cancer screening GERD without esophagitis Procedures CONSULT TO GENERAL SURGERY OFFICE/OUTPATIENT [facility] 60 MINUTES Liudmila Olivera APRN.FAST FOOD CASHIER [address] [place] [address] Phone: tel: fax: Saray Villegas MD [address] [place] [address] Phone: tel: fax: Referral ID Status Reason Start Date Expiration Date V isits Requested Visits Authorized [id number] Closed PCP Requested Referral 03/08/2025 03/08/2026 1 1 Reason Onset Date Comments Transition Of Care 03/19/2025 Hospital disc harge from [place] 03/19/2025 Reason Comments F/U 3 Month Reason Onset Date Comments Results 02/02/2025 Reason Comments Pre-Op Visit Reason Comments Hospital F/U SOB SUSPECTED 12/20 TO MUCUS PLUGGING from 03/17/25 to 03/19/25 Felling better now. Reason Comments Follow Up EGD/ colonoscopy Reason Comments Well Woman Wants stomach medica tion changed. She is taking lansoprazole and it is not working. Medicare Wellness Exam Reason Onset Date Comments Results 05/19/2025 Reason Comments Uti - Re-occurring Woke up this am with burning with urination and abdomin pain. Reason Onset Date Comments Results 07/02/2025 Reason Comments COPD Woke up yesterday. C oughed up all night. Sound is different. O2 was on 3 and it was 72 . Could not breath. Lung Did not return her call until today. Care Teams (unrecognized sec tion and content) Children Counselor Relationship Specialty Start Date End Date Liudmila Olivera APRN.FAST FOOD CASHIER [address] [place], [place] [id number] PCP - General Family Practice 10/22/18 Children Counselor Relationship Specialty Start Date End Date Liudmila Olivera APRN.FAST FOOD CASHIER [address] [place], [place] [id number] PCP - General Family Practice 10/22/18 Children Counselor Relationship Specialty Start Date End Date Liudmila Olivera, SPACE ENGINEER.FAST FOOD CASHIER [address] [place] [address] PCP - General Family Practice 10/22/18 Children Counselor Relationship Specialty Start Date End Date Liudmila Olivera, SPACE ENGINEER.FAST FOOD CASHIER [address] [place] [address] PCP - General Family Practice 10/22/18 Children Counselor Relationship Specialty Start Date End Date Liudmila Olivera, SPACE ENGINEER.FAST FOOD CASHIER [address] [place] [address] PCP - General Family Practice 10/22/18 Children Counselor Relationship Specialty Start Date End Date Liudmila Olivera, SPACE ENGINEER.FAST FOOD CASHIER [address] [place] [address] PCP - General Family Practice 10/22/18 Children Counselor Relationship Specialty Start Date End Date Liudmila Olivera, SPACE ENGINEER.FAST FOOD CASHIER [address] [place] [address] PCP - General Family Practice 10/22/18 Children Counselor Relationship Specialty Start Date End Date Liudmila Olivera SPACE ENGINEER.FAST FOOD CASHIER [address] [place] [address] PCP - General Family Practice 10/22/18 Children Counselor Relationship Specialty Start Date End Date Liudmila Olivera, SPACE ENGINEER.FAST FOOD CASHIER [address] [place] [address] PCP - General Family Practice 10/22/18 Children Counselor Relationship Specialty Start Date End Date Liudmila Olivera, SPACE ENGINEER.FAST FOOD CASHIER [address] [place] [address] PCP - General Family Practice 10/22/18 Children Counselor Relationship Specialty Start Date End Date Liudmila Olivera, SPACE ENGINEER.FAST FOOD CASHIER [address] [place] [address] PCP - General Family Practice 10/22/18 Children Counselor Relationship Specialty Start Date End Date Liudmila Olivera SPACE ENGINEER.FAST FOOD CASHIER [address] [place] [address] PCP - General Family Practice 10/22/18 Children Counselor Relationship Specialty Start Date End Date Liudmila Olivera SPACE ENGINEER.FAST FOOD CASHIER [address] [place] [address] PCP - General Family Practice 10/22/18 Children Counselor Relationship Specialty Start Date End Date Liudmila Olivera SPACE ENGINEER.FAST FOOD CASHIER [address] [place] [address] PCP - General Family Practice 10/22/18 Children Counselor Relationship Specialty Start Date End Date Liudmila Olivera SPACE ENGINEER.FAST FOOD CASHIER [address] [place] [address] PCP - General Family Practice 10/22/18 Children Counselor Relationship Specialty Start Date End Date Liudmila Olivera SPACE ENGINEER.FAST FOOD CASHIER [address] [place] [address] PCP - General Family Practice 10/22/18 Children Counselor Relationship Specialty Start Date End Date Liudmila Olivera SPACE ENGINEER.FAST FOOD CASHIER [address] [place] [address] PCP - General Family Practice 10/22/18 Children Counselor Relationship Specialty Start Date End Date Liudmila Olivera SPACE ENGINEER.FAST FOOD CASHIER [address] [place] [address] PCP - General Family Practice 10/22/18 Children Counselor Relationship Specialty Start Date End Date Liudmila Olivera SPACE ENGINEER.FAST FOOD CASHIER [address] [place] [address] PCP - General Family Practice 10/22/18 Children Counselor Relationship Specialty Start Date End Date Liudmila Olivera, SPACE ENGINEER.FAST FOOD CASHIER [address] [place] [address] PCP - General Family Practice 10/22/18 Children Counselor Relationship Specialty Start Date End Date Liudmila Olivera, SPACE ENGINEER.FAST FOOD CASHIER [address] [place] [address] PCP - General Family Practice 10/22/18 Children Counselor Relationship Specialty Start Date End Date Liudmila Olivera SPACE ENGINEER.FAST FOOD CASHIER [address] [place] [address] PCP - General Family Practice 10/22/18 Children Counselor Relationship Specialty Start Date End Date Liudmila Olivera, SPACE ENGINEER.FAST FOOD CASHIER [address] [place] [address] PCP - General Family Practice 10/22/18 Children Counselor Relationship Specialty Start Date End Date Liudmila Olivera SPACE ENGINEER.FAST FOOD CASHIER [address] [place] [address] PCP - General Family Practice 10/22/18 Children Counselor Relationship Specialty Start Date End Date Liudmila Olivera, SPACE ENGINEER.FAST FOOD CASHIER [address] [place] [address] PCP - General Family Practice 10/22/18 Children Counselor Relationship Specialty Start Date End Date Liudmila Olivera, SPACE ENGINEER.FAST FOOD CASHIER [address] [place] [address] PCP - General Family Practice 10/22/18 Children Counselor Relationship Specialty Start Date End Date Liudmila Olivera, SPACE ENGINEER.FAST FOOD CASHIER [address] [place] [address] PCP - General Family Medicine 10/22/18 Children Counselor Relationship Specialty Start Date End Date Liudmila Olivera, SPACE ENGINEER.FAST FOOD CASHIER [address] [place] [address] PCP - General Family Medicine 10/22/18 Children Counselor Relationship Specialty Start Date End Date Liudmila Olivera, SPACE ENGINEER.FAST FOOD CASHIER [address] [place] [address] PCP - General Family Medicine 10/22/18 Children Counselor Relationship Specialty Start Date End Date Liudmila Olivera, SPACE ENGINEER.FAST FOOD CASHIER [address] [place] [address] PCP - General Family Medicine 10/22/18 Children Counselor Relationship Specialty Start Date End Date Liudmila Olivera, SPACE ENGINEER.FAST FOOD CASHIER [address] [place] [address] PCP - General Family Medicine 10/22/18 Children Counselor Relationship Specialty Start Date End Date Liudmila Olivera, SPACE ENGINEER.FAST FOOD CASHIER [address] [place] [address] PCP - General Family Medicine 10/22/18 Children Counselor Relationship Specialty Start Date End Date Liudmila Olivera, SPACE ENGINEER.FAST FOOD CASHIER [address] [place] [address] PCP - General Family Medicine 10/22/18 Children Counselor Relationship Specialty Start Date End Date Liudmila Olivera, SPACE ENGINEER.FAST FOOD CASHIER [address] [place] [address] PCP - General Family Medicine 10/22/18 Children Counselor Relationship Specialty Start Date End Date Liudmila Olivera, SPACE ENGINEER.FAST FOOD CASHIER [address] [place] [address] PCP - General Family Medicine 10/22/18 Children Counselor Relationship Specialty Start Date End Date Liudmila Olivera, SPACE ENGINEER.FAST FOOD CASHIER [address] [place] [address] PCP - General Family Medicine 10/22/18 Children Counselor Relationship Specialty Start Date End Date Liudmila Olivera, SPACE ENGINEER.FAST FOOD CASHIER [address] [place] [address] PCP - General Family Medicine 10/22/18 Children Counselor Relationship Specialty Start Date End Date Liudmila Olivera, SPACE ENGINEER.FAST FOOD CASHIER [address] [place] [address] PCP - General Family Medicine 10/22/18 Children Counselor Relationship Specialty Start Date End Date Liudmila Olivera, SPACE ENGINEER.FAST FOOD CASHIER [address] [place] [address] PCP - General Family Medicine 10/22/18 Children Counselor Relationship Specialty Start Date End Date Liudmila Olivera, SPACE ENGINEER.FAST FOOD CASHIER [address] [place] [address] PCP - General Family Medicine 10/22/18 Children Counselor Relationship Specialty Start Date End Date Liudmila Olivera, SPACE ENGINEER.FAST FOOD CASHIER [address] [place] [address] PCP - General Family Medicine 10/22/18 Children Counselor Relationship Specialty Start Date End Date Liudmila Olivera, SPACE ENGINEER.FAST FOOD CASHIER [address] [place] [address] PCP - General Family Medicine 10/22/18 Children Counselor Relationship Specialty Start Date End Date Liudmila Olivera, SPACE ENGINEER.FAST FOOD CASHIER [address] [place] [address] PCP - General Family Medicine 10/22/18 Children Counselor Relationship Specialty Start Date End Date Liudmila Olivera, SPACE ENGINEER.FAST FOOD CASHIER [address] [place] [address] PCP - General Family Medicine 10/22/18 Children Counselor Relationship Specialty Start Date End Date Liudmila Olivera, SPACE ENGINEER.FAST FOOD CASHIER [address] [place] [address] PCP - General Family Medicine 10/22/18 Team Status: Active Member Role Status Dates Liudmila Sanahemant REMOTE ADVISOR, REMOTE ADVISOR-C Family Provider Active Liudmila Sanahemant REMOTE ADVISOR, REMOTE ADVISOR-C Primary Care Provider Active Team Status: Active Member Role Status Dates Liudmila Olivera REMOTE ADVISOR, REMOTE ADVISOR-C Primary Care Provider Active Dr. Daniel Claire MD Admit Provi gina, Attending Provider, Other Provider Active Team Status: Active Member Role Status Dates Liudmila Olivera REMOTE ADVISOR, REMOTE ADVISOR-C Primary Care Provider Active Dr. Daniel Claire MD Admit Provider, Other Pro vider Active Dr. Paul Bower MD Other Provider Active Dr. Jose F Chang , Attending Provider, Other Provide r Active Dr. Carlos Alberto Frausto MD Other Provider Active Dr. Mart Hernandez MD Other Provider Active Jessi Lindo REMOTE ADVISOR, REMOTE ADVISOR-C Other Provider Active Dr. Maritza Carcamo , Other Provider Active Team Status: Active Member Role Status Dates Liudmila Olivera REMOTE ADVISOR, REMOTE ADVISOR-C Primary Care Provider Active Dr. Daniel Claire MD Admit Provider, Other Pro vider Active Dr. Paul Bower MD Other Provider Active Dr. Jose F Chang , Other Provider Active Dr. Carlos Alberto Frausto MD Other Provider Active Dr. Mart Hernandez MD Other Provider Active Jessi Lindo REMOTE ADVISOR, REMOTE ADVISOR-C Other Provider Active Dr. Maritza Carcamo , Attending Provider, Other Provide r Active Team Status: Inactive Member Role Status Dates Liudmila Olivera REMOTE ADVISOR, REMOTE ADVISOR-C Primary Care Provider Active Dr. Daniel Claire MD Admit Provider, Other Pro vider Active Dr. Paul Bower MD Other Provider Active Dr. Jose F Chang , Other Provider Active Dr. Carlos Alberto Frausto MD Other Provider Active Dr. Mart Hernandez MD Other Provider Active Jessi Lindo REMOTE ADVISOR, REMOTE ADVISOR-C Other Provider Active Dr. Maritza Carcamo DO Attending Provider Active Children Counselor Relationship Specialty Start Date End Date Liudmila Olivera, SPACE ENGINEER.FAST FOOD CASHIER [address] [place] [address] PCP - General Family Medicine 10/22/18 Children Counselor Relationship Specialty Start Date End Date Liudmila Olivera, SPACE ENGINEER.FAST FOOD CASHIER [address] [place] [address] PCP - General Family Medicine 10/22/18 Children Counselor Relationship Specialty Start Date End Date Liudmila Olivera, SPACE ENGINEER.FAST FOOD CASHIER [address] [place] [address] PCP - General Family Medicine 10/22/18 Children Counselor Relationship Specialty Start Date End Date Liudmila Olivera, SPACE ENGINEER.FAST FOOD CASHIER [address] [place] [address] PCP - General Family Medicine 10/22/18 Children Counselor Relationship Specialty Start Date End Date Liudmila Olivera, SPACE ENGINEER.FAST FOOD CASHIER [address] [place] [address] PCP - General Family Medicine 10/22/18 Children Counselor Relationship Specialty Start Date End Date Liudmila Olivera, SPACE ENGINEER.FAST FOOD CASHIER [address] [place] [address] PCP - General Family Medicine 10/22/18 Children Counselor Relationship Specialty Start Date End Date Liudmila Olivera, SPACE ENGINEER.FAST FOOD CASHIER [address] [place] [address] PCP - General Family Medicine 10/22/18 Team Status: Active Member Role Status Dates Liudmila Olivera REMOTE ADVISOR, REMOTE ADVISOR-C Primary Care Provider Active Dr. Daniel Claire MD Admit Provider, Other Pro vider Active Dr. Paul Bower MD Other Provider Active Dr. Jose F Chang , Attending Provider, Other Provide r Active Dr. Carlos Alberto Frausto MD Other Provider Active Dr. Mart Hernandez MD Other Provider Active Jessi Lindo REMOTE ADVISOR, REMOTE ADVISOR-C Other Provider Active Dr. Maritza Carcamo , Referring Provider, Other Provide r Active Team Status: Inactive Member Role Status Dates Liudmila Olivera REMOTE ADVISOR, REMOTE ADVISOR-C Primary Care Provider, Referrin g Provider Active Jessi Lindo REMOTE ADVISOR, REMOTE ADVISOR-C Attending Provider Active Team Status: Inactive Member Role Status Dates Liudmila Olivera REMOTE ADVISOR, REMOTE ADVISOR-C Primary Care Provider Active Jessi Lindo REMOTE ADVISOR, REMOTE ADVISOR-C Attending Provider, Referrin g Provider Active Team Status: Inactive Member Role Status Dates Liudmila Olivera REMOTE ADVISOR, REMOTE ADVISOR-C Referring Provider Active Jessi Lindo REMOTE ADVISOR, REMOTE ADVISOR-C Attending Provider Active Children Counselor Relationship Specialty Start Date End Date Liudmila Olivera, SPACE ENGINEER.FAST FOOD CASHIER [address] [place] [address] PCP - General Family Medicine 10/22/18 Annette Horan, electric motor control assembler Cash Application Clerk 10/29/23 Children Counselor Relationship Specialty Start Date End Date Liudmila Olivera, SPACE ENGINEER.FAST FOOD CASHIER [address] [place] [address] PCP - General Family Medicine 12/27/23 Children Counselor Relationship Specialty Start Date End Date Rohit Mosqueda DO [address] [place] [address] / [place] [address] PCP - General Family Medicine 11/06/23 12/26/23 Liudmila Olivera, SPACE ENGINEER.FAST FOOD CASHIER [address] [place] [address] PCP - General Family Medicine 12/27/23 Mayra Jin, NIK 11/27/23 12/08/23 Children Counselor Relationship Specialty Start Date End Date Liudmila Olivera SPACE ENGINEER.FAST FOOD CASHIER [address] [place] [address] PCP - General Family Medicine 12/27/23 Children Counselor Relationship Specialty Start Date End Date Liudmila Olivera SPACE ENGINEER.FAST FOOD CASHIER [address] [place] [address] PCP - General Family Medicine 12/27/23 Children Counselor Relationship Specialty Start Date End Date Liudmila Olivera SPACE ENGINEER.FAST FOOD CASHIER [address] [place] [address] PCP - General Family Medicine 12/27/23 Children Counselor Relationship Specialty Start Date End Date Liudmila Olivera SPACE ENGINEER.FAST FOOD CASHIER [address] [place] [address] PCP - General Family Medicine 12/27/23 Children Counselor Relationship Specialty Start Date End Date Liudmila Olivera SPACE ENGINEER.FAST FOOD CASHIER [address] [place] [address] PCP - General Family Medicine 12/27/23 Children Counselor Relationship Specialty Start Date End Date Liudmila Olivera SPACE ENGINEER.FAST FOOD CASHIER [address] [place] [address] PCP - General Family Medicine 12/27/23 Children Counselor Relationship Specialty Start Date End Date Liudmila Olivera SPACE ENGINEER.FAST FOOD CASHIER [address] [place] [address] PCP - General Family Medicine 12/27/23 Team Status: Inactive Member Role Status Dates Liudmila Olivera REMOTE ADVISOR, REMOTE ADVISOR-C Primary Care Provider, Referrin g Provider Active Dr. Paul Bower MD Attending Provider Active Team Status: Inactive Member Role Status Dates Liudmila Olivera REMOTE ADVISOR, REMOTE ADVISOR-C Primary Care Provider Active Dr. Paul Bower MD Attending Provider, Referring Pr ovider Active Dr. Jose F Chang DO Other Provider Active Team Status: Active Member Role Status Dates Liudmila Olivera REMOTE ADVISOR, REMOTE ADVISOR-C Primary Care Provider Active Dr. Paul Bower MD Attending Provider, Referring Pr ovider Active Children Counselor Relationship Specialty Start Date End Date Liudmila Olivera SPACE ENGINEER.FAST FOOD CASHIER [address] [place] [address] PCP - General Family Medicine 12/27/23 Children Counselor Relationship Specialty Start Date End Date Liudmila Olivera SPACE ENGINEER.FAST FOOD CASHIER [address] [place] [address] PCP - General Family Medicine 12/27/23 Children Counselor Relationship Specialty Start Date End Date Liudmila Olivera SPACE ENGINEER.FAST FOOD CASHIER [address] [place] [address] PCP - General Family Medicine 12/27/23 Children Counselor Relationship Specialty Start Date End Date Liudmila Olivera, SPACE ENGINEER.FAST FOOD CASHIER [address] [place] [address] PCP - General Family Medicine 12/27/23 Children Counselor Relationship Specialty Start Date End Date Liudmila Olivera, SPACE ENGINEER.FAST FOOD CASHIER [address] [place] [address] PCP - General Family Medicine 12/27/23 Children Counselor Relationship Specialty Start Date End Date Liudmila Olivera SPACE ENGINEER.FAST FOOD CASHIER [address] [place] [address] PCP - General Family Medicine 12/27/23 Children Counselor Relationship Specialty Start Date End Date Liudmila Olivera SPACE ENGINEER.FAST FOOD CASHIER [address] [place] [address] PCP - General Family Medicine 12/27/23 Children Counselor Relationship Specialty Start Date End Date Liudmila Olivera SPACE ENGINEER.FAST FOOD CASHIER [address] [place] [address] PCP - General Family Medicine 12/27/23 Children Counselor Relationship Specialty Start Date End Date Liudmila Olivera SPACE ENGINEER.FAST FOOD CASHIER [address] [place] [address] PCP - General Family Medicine 12/27/23 Children Counselor Relationship Specialty Start Date End Date Liudmila Olivera SPACE ENGINEER.FAST FOOD CASHIER [address] [place] [address] PCP - General Family Medicine 12/27/23 Children Counselor Relationship Specialty Start Date End Date Liudmila Olivera, SPACE ENGINEER.FAST FOOD CASHIER [address] [place] [address] PCP - General Family Medicine 12/27/23 Children Counselor Relationship Specialty Start Date End Date Liudmila Olivera SPACE ENGINEER.FAST FOOD CASHIER [address] [place] [address] PCP - General Family Medicine 12/27/23 Children Counselor Relationship Specialty Start Date End Date Liudmila Olivera SPACE ENGINEER.FAST FOOD CASHIER [address] [place] [address] PCP - General Family Medicine 12/27/23 Children Counselor Relationship Specialty Start Date End Date Liudmila Olivera SPACE ENGINEER.FAST FOOD CASHIER [address] [place] [address] PCP - General Family Medicine 12/27/23 Children Counselor Relationship Specialty Start Date End Date Liudmila Olivera, SPACE ENGINEER.FAST FOOD CASHIER [address] [place] [address] PCP - General Family Medicine 12/27/23 Children Counselor Relationship Specialty Start Date End Date Liudmila Olivera, SPACE ENGINEER.FAST FOOD CASHIER [address] [place] [address] PCP - General Family Medicine 12/27/23 Children Counselor Relationship Specialty Start Date End Date Liudmila Olivera, SPACE ENGINEER.FAST FOOD CASHIER [address] [place] [address] PCP - General Family Medicine 12/27/23 Children Counselor Relationship Specialty Start Date End Date Liudmila Olivera, SPACE ENGINEER.FAST FOOD CASHIER [address] [place] [address] PCP - General Family Medicine 12/27/23 Children Counselor Relationship Specialty Start Date End Date Liudmila Olivera, SPACE ENGINEER.FAST FOOD CASHIER [address] [place] [address] PCP - General Family Medicine 12/27/23 Children Counselor Relationship Specialty Start Date End Date Liudmila Olivera, SPACE ENGINEER.FAST FOOD CASHIER [address] [place] [address] PCP - General Family Medicine 12/27/23 Children Counselor Relationship Specialty Start Date End Date Liudmila Olivera SPACE ENGINEER.FAST FOOD CASHIER [address] [place] [address] PCP - General Family Medicine 12/27/23 Children Counselor Relationship Specialty Start Date End Date Liudmila Olivera SPACE ENGINEER.FAST FOOD CASHIER [address] [place] [address] PCP - General Family Medicine 12/27/23 Children Counselor Relationship Specialty Start Date End Date Liudmila Olivera SPACE ENGINEER.FAST FOOD CASHIER [address] [place] [address] PCP - General Family Medicine 12/27/23 Children Counselor Relationship Specialty Start Date End Date Liudmila Olivera SPACE ENGINEER.FAST FOOD CASHIER [address] [place] [address] PCP - General Family Medicine 12/27/23 Children Counselor Relationship Specialty Start Date End Date Liudmila Olivera SPACE ENGINEER.FAST FOOD CASHIER [address] [place] [address] PCP - General Family Medicine 12/27/23 Children Counselor Relationship Specialty Start Date End Date Liudmila Olivera SPACE ENGINEER.FAST FOOD CASHIER [address] [place] [address] PCP - General Family Medicine 12/27/23 Team Status: Active Member Role Status Dates Liudmila Olivera NP REMOTE ADVISOR-C Primary Care Provider Active Team Status: Inactive Member Role Status Dates Liudmila Olivera NP REMOTE ADVISOR-C Primary Care Provider Active Start: March 02, 2025 End: March 02, 2025 Liudmila Olivera NP, NP-C Referring Provider Active Start: March 02, 2025 End: March 02, 2025 FELIX Jones Attending Provider Active Start: March 02, 2025 End: March 02, 2025 Team Status: Active Member Role Status Dates Liudmila Olivera NP, NP-C Primary Care Provider Active Start: March 17, 2025 Dr. Wayne Waterman , Emergency Provider Activ e Start: March 17, 2025 Dr. Kel Murphy , Admit Provider Active Start: March 17, 2025 Dr. Kel Murphy , DO Attending Provider Active Start: March 17, 2025 Children Counselor Relationship Specialty Start Date End Date Liudmila Olivera APRN.FAST FOOD CASHIER [address] [place] [address] PCP - General Family Medicine 12/27/23 Children Counselor Relationship Specialty Start Date End Date Liudmila Olivera APRN.FAST FOOD CASHIER [address] [place] [address] PCP - General Family Medicine 12/27/23 Children Counselor Relationship Specialty Start Date End Date Liudmila Olivera APRN.FAST FOOD CASHIER [address] [place] [address] PCP - General Family Medicine 12/27/23 Children Counselor Relationship Specialty Start Date End Date Liudmila Olivera APRN.FAST FOOD CASHIER [address] [place] [address] PCP - General Family Medicine 12/27/23 Children Counselor Relationship Specialty Start Date End Date Liudmila Olivera APRN.FAST FOOD CASHIER [address] [place] [address] PCP - General Family Medicine 12/27/23 Children Counselor Relationship Specialty Start Date End Date Liudmila Olivera SPACE ENGINEER.FAST FOOD CASHIER [address] [facility] [address] [place] [address] PCP - General Family Medicine 12/27/23 Children Counselor Relationship Specialty Start Date End Date Liudmila Olivera, SPACE ENGINEER.FAST FOOD CASHIER [address] [place] [address] PCP - General Family Medicine 12/27/23 Team Status: Inactive Member Role Status Dates Liudmila Olivera REMOTE ADVISOR, REMOTE ADVISOR-C Primary Care Provider Active Start: March 17, 2025 End: March 19, 2025 Dr. Wayne Waterman , DO Emergency Provider Activ e Start: March 17, 2025 End: March 19, 2025 Dr. Kel Murphy , DO Admit Provider Active Start: March 17, 2025 End: March 19, 2025 Dr. Kel Murphy , DO Attending Provider Active Start: March 17, 2025 End: March 19, 2025 Dr. Kel Murphy , DO Other Provider Active Start: March 17, 2025 Dr. Sussy Argueta MD Other Provider Active Start: March 17, 2025 Dr. Raphael Aj MD Other Provider Active Start: March 17, 2025 Dr. Paul Bower MD Other Provider Active Star t: March 17, 2025 Dr. Jose F Chang , Other Provider Active Start : March 17, 2025 Dr. Evin Barbosa MD Other Provider Active Sta rt: March 17, 2025 Dr. Christofer Heck MD Other Provider Active St art: March 17, 2025 Dr. Michele Schroeder MD Other Provider Active S tart: March 17, 2025 Dr. Nicky Cassidy MD Other Provider Active Start: March 17, 2025 Dr. Jreson Cat MD Other Provider Active Start : March 17, 2025 Dr. Justen Aguilar MD Other Provider Active Start: March 17, 2025 Dr. Oscar Amador MD Other Provider Active Start : March 17, 2025 Dr. Esthela Linda MD Other Provider Active Star t: March 17, 2025 Dr. Shady Link MD Other Provider Active Sta rt: March 17, 2025 Dr. Talita Jimenez MD Other Provider Active Sta rt: March 17, 2025 Dr. Jt Meadows MD Other Provider Active Star t: March 17, 2025 Dr. Hola Mullen MD Other Provider Active St art: March 17, 2025 Dr. Arturo Bradford MD Other Provider Active Star t: March 17, 2025 Dr. Jacky Chavez , DO Other Provider Active St art: March 17, 2025 Dr. Juan Ramon Patterson MD Other Provider Active Start: March 17, 2025 Dr. Angelo Collier MD Other Provider Active St art: March 17, 2025 Dr. Brian Patton , DO Other Provider Active Start: March 17, 2025 Dr. Todd Trammlel MD Other Provider Active Star t: March 17, 2025 Dr. Chencho Baires MD Other Provider Active Sta rt: March 17, 2025 Team Status: Active Member Role Status Dates Liudmila Olivera REMOTE ADVISOR, REMOTE ADVISOR-C Primary Care Provider Active Start: March 17, 2025 Dr. Wayne Waterman , Emergency Provider Activ e Start: March 17, 2025 Dr. Kel Murphy , Admit Provider Active Start: March 17, 2025 Dr. Kel Murphy DO Referring Provider Active Start: March 17, 2025 Dr. Kel Murphy DO Other Provider Active Start: March 17, 2025 Dr. Sussy Argueta MD Other Provider Active Start: March 17, 2025 Dr. Raphael Aj MD Other Provider Active Start: March 17, 2025 Dr. Paul Bower MD Other Provider Active Star t: March 17, 2025 Dr. Jose F Chang , Attending Provider Active S tart: March 17, 2025 Dr. Jose F Chang , Other Provider Active Start : March 17, 2025 Dr. Evin Barbosa MD Other Provider Active Sta rt: March 17, 2025 Dr. Christofer Heck MD Other Provider Active St art: March 17, 2025 Dr. Michele Schroeder MD Other Provider Active S tart: March 17, 2025 Dr. Nicky Cassidy MD Other Provider Active Start: March 17, 2025 Dr. Jerson Cat MD Other Provider Active Start : March 17, 2025 Dr. Justen Aguilar MD Other Provider Active Start: March 17, 2025 Dr. Oscar Amador MD Other Provider Active Start : March 17, 2025 Dr. Esthela Linda MD Other Provider Active Star t: March 17, 2025 Dr. Shayd Link MD Other Provider Active Sta rt: March 17, 2025 Dr. Talita Jimenez MD Other Provider Active Sta rt: March 17, 2025 Dr. Jt Meadows MD Other Provider Active Star t: March 17, 2025 Dr. Hola Mullen MD Other Provider Active St art: March 17, 2025 Dr. Arturo Bradford MD Other Provider Active Star t: March 17, 2025 Dr. Jacky Chavez DO Other Provider Active St art: March 17, 2025 Dr. Juan Ramon Patterson MD Other Provider Active Start: March 17, 2025 Dr. Angelo Collier MD Other Provider Active St art: March 17, 2025 Dr. Brian Patton DO Other Provider Active Start: March 17, 2025 Dr. Todd Trammell MD Other Provider Active Star t: March 17, 2025 Dr. Chencho Baires MD Other Provider Active Sta rt: March 17, 2025 Team Status: Active Member Role Status Dates Liudmila Olivera REMOTE ADVISOR, REMOTE ADVISOR-C Primary Care Provider Active Start: March 18, 2025 Dr. Wayne Waterman , DO Emergency Provider Activ e Start: March 18, 2025 Dr. Kel Murphy , DO Admit Provider Active Start: March 18, 2025 Dr. Kel Murphy , DO Referring Provider Active Start: March 18, 2025 Dr. Kel Murphy , DO Other Provider Active Start: March 18, 2025 Dr. Sussy Argueta MD Other Provider Active Start: March 18, 2025 Dr. Raphael Aj MD Other Provider Active Start: March 18, 2025 Dr. Paul Bower MD Other Provider Active Star t: March 18, 2025 Dr. Jose F Chang , Attending Provider Active S tart: March 18, 2025 Dr. Jose F Chang , Other Provider Active Start : March 18, 2025 Dr. Evin Barbosa MD Other Provider Active Sta rt: March 18, 2025 Dr. Christofer Heck MD Other Provider Active St art: March 18, 2025 Dr. Michele Schroeder MD Other Provider Active S tart: March 18, 2025 Dr. Nicky Cassidy MD Other Provider Active Start: March 18, 2025 Dr. Jerson Cat MD Other Provider Active Start : March 18, 2025 Dr. Justen Aguilar MD Other Provider Active Start: March 18, 2025 Dr. Oscar Amador MD Other Provider Active Start : March 18, 2025 Dr. Esthela Linda MD Other Provider Active Star t: March 18, 2025 Dr. Shady Link MD Other Provider Active Sta rt: March 18, 2025 Dr. Talita Jimenez MD Other Provider Active Sta rt: March 18, 2025 Dr. Jt Meaodws MD Other Provider Active Star t: March 18, 2025 Dr. Hola Mullen MD Other Provider Active St art: March 18, 2025 Dr. Arturo Bradford MD Other Provider Active Star t: March 18, 2025 Dr. Jacky Chavez , Other Provider Active St art: March 18, 2025 Dr. Juan Ramon Patterson MD Other Provider Active Start: March 18, 2025 Dr. Angelo Collier MD Other Provider Active St art: March 18, 2025 Dr. Brian Patton DO Other Provider Active Start: March 18, 2025 Dr. Todd Trammell MD Other Provider Active Star t: March 18, 2025 Dr. Chencho Baires MD Other Provider Active Sta rt: March 18, 2025 Team Status: Active Member Role Status Dates Liudmila Olivera NP, REMOTE ADVISOR-C Primary Care Provider Active Start: March 18, 2025 End: March 18, 2025 Dr. Franco Quach MD Attending Provider Active S tart: March 18, 2025 End: March 18, 2025 Dr. Franco Quach MD Referring Provider Active S tart: March 18, 2025 End: March 18, 2025 Team Status: Active Member Role Status Dates Liudmila Olivrea NP, REMOTE ADVISOR-C Primary Care Provider Active Start: March 18, 2025 Dr. Wayne Waterman , DO Emergency Provider Activ e Start: March 18, 2025 Dr. Kel Murphy , DO Admit Provider Active Start: March 18, 2025 Dr. Kel Murphy , DO Attending Provider Active Start: March 18, 2025 Dr. eKl Murphy , DO Other Provider Active Start: March 18, 2025 Dr. Sussy Argueta MD Other Provider Active Start: March 18, 2025 Dr. Raphael Aj MD Other Provider Active Start: March 18, 2025 Dr. Paul Bower MD Other Provider Active Star t: March 18, 2025 Dr. Jose F Chang , DO Other Provider Active Start : March 18, 2025 Dr. Evin Barbosa MD Other Provider Active Sta rt: March 18, 2025 Dr. Christofer Heck MD Other Provider Active St art: March 18, 2025 Dr. Michele Schroeder MD Other Provider Active S tart: March 18, 2025 Dr. iNcky Cassidy MD Other Provider Active Start: March 18, 2025 Dr. Jerson Cat MD Other Provider Active Start : March 18, 2025 Dr. Justen Aguilar MD Other Provider Active Start: March 18, 2025 Dr. Oscar Amador MD Other Provider Active Start : March 18, 2025 Dr. Esthela Linda MD Other Provider Active Star t: March 18, 2025 Dr. Shady Link MD Other Provider Active Sta rt: March 18, 2025 Dr. Talita Jimenez MD Other Provider Active Sta rt: March 18, 2025 Dr. Jt Meadows MD Other Provider Active Star t: March 18, 2025 Dr. Hola Mullen MD Other Provider Active St art: March 18, 2025 Dr. Arturo Bradford MD Other Provider Active Star t: March 18, 2025 Dr. Jacky Chavez , DO Other Provider Active St art: March 18, 2025 Dr. Juan Ramon Patterson MD Other Provider Active Start: March 18, 2025 Dr. Angelo Collier MD Other Provider Active St art: March 18, 2025 Dr. Brian Patton , DO Other Provider Active Start: March 18, 2025 Dr. Todd Trammell MD Other Provider Active Star t: March 18, 2025 Dr. Chencho Baires MD Other Provider Active Sta rt: March 18, 2025 Team Status: Active Member Role Status Dates Liudmila Olivera NP, REMOTE ADVISOR-C Primary Care Provider Active Start: March 19, 2025 Dr. Wayne Waterman , DO Emergency Provider Activ e Start: March 19, 2025 Dr. Kel Murphy , DO Admit Provider Active Start: March 19, 2025 Dr. Kel Murphy , DO Referring Provider Active Start: March 19, 2025 Dr. Kel Murphy , DO Other Provider Active Start: March 19, 2025 Dr. Jose F Chang , DO Attending Provider Active S tart: March 19, 2025 Team Status: Active Member Role Status Dates Liudmila Olivera NP, REMOTE ADVISOR-C Primary Care Provider Active Start: March 19, 2025 Dr. Wayne Waterman , DO Emergency Provider Activ e Start: March 19, 2025 Dr. Kel Murphy , DO Admit Provider Active Start: March 19, 2025 Dr. Kel Murphy , DO Attending Provider Active Start: March 19, 2025 Dr. Kel Murphy , DO Other Provider Active Start: March 19, 2025 Team Status: Inactive Member Role Status Dates Liudmila Olivera NP REMOTE ADVISOR-C Primary Care Provider Active Start: April 09, 2025 End: April 09, 2025 Liudmila Olivera NP REMOTE ADVISOR-C Referring Provider Active Start: April 09, 2025 End: April 09, 2025 Anita Neves NP-Jessi Attending Provider Active Start: April 09, 2025 End: April 09, 2025 Team Status: Inactive Member Role Status Dates Liudmila Olivera NP REMOTE ADVISOR-C Primary Care Provider Active Start: April 22, 2025 End: April 22, 2025 FELIX Jones Attending Provider Active Start: April 22, 2025 End: April 22, 2025 FELIX Jones Referring Provider Active Start: April 22, 2025 End: April 22, 2025 Children Counselor Relationship Specialty Start Date End Date Liudmila Olivera, SPACE ENGINEER.FAST FOOD CASHIER [address] [place] [address] PCP - General Family Medicine 12/27/23 Children Counselor Relationship Specialty Start Date End Date Liudmila Olivera, SPACE ENGINEER.FAST FOOD CASHIER [address] [place] [address] PCP - General [facility] Medicine 12/27/23 Children Counselor Relationship Specialty Start Date End Date Liudmila Olivera, SPACE ENGINEER.FAST FOOD CASHIER [address] [place] [address] PCP - General Family Medicine 12/27/23 Team Status: Active Member Role/Relationship Status Dates Liudmila Olivera REMOTE ADVISOR, REMOTE ADVISOR-C Primary Care Provider Active Team Status: Inactive Member Role/Relationship Status Dates Liudmila Olivera REMOTE ADVISOR, REMOTE ADVISOR-C Primary Care Provider Active Start: March 02, 2025 End: March 02, 2025 Liudmila Olivera REMOTE ADVISOR, REMOTE ADVISOR-C Referring Provider Active Start: March 02, 2025 End: March 02, 2025 Anita Neves NP-C Attending Provider Active Start: March 02, 2025 End: March 02, 2025 Team Status: Inactive Member Role/Relationship Status Dates Liudmila Olivera REMOTE ADVISOR, REMOTE ADVISOR-C Primary Care Provider Active Start: March 17, 2025 End: March 19, 2025 Dr. Wayne Waterman , DO Emergency Provider Activ e Start: March 17, 2025 End: March 19, 2025 Dr. Kel Murphy , DO Admit Provider Active Start: March 17, 2025 End: March 19, 2025 Dr. Kel Murphy , DO Attending Provider Active Start: March 17, 2025 End: March 19, 2025 Dr. Kel Murphy , DO Other Provider Active Start: March 17, 2025 Dr. Sussy Argueta MD Other Provider Active Start: March 17, 2025 Dr. Raphael Aj MD Other Provider Active Start: March 17, 2025 Dr. Paul Bower MD Other Provider Active Star t: March 17, 2025 Dr. Jose F Chang , Other Provider Active Start : March 17, 2025 Dr. Evin Barbosa MD Other Provider Active Sta rt: March 17, 2025 Dr. Christofer Heck MD Other Provider Active St art: March 17, 2025 Dr. Michele Schroeder MD Other Provider Active S tart: March 17, 2025 Dr. Nicky Cassidy MD Other Provider Active Start: March 17, 2025 Dr. Jerson Cat MD Other Provider Active Start : March 17, 2025 Dr. Justen Aguilar MD Other Provider Active Start: March 17, 2025 Dr. Oscar Amador MD Other Provider Active Start : March 17, 2025 Dr. Esthela Linda MD Other Provider Active Star t: March 17, 2025 Dr. Shady Link MD Other Provider Active Sta rt: March 17, 2025 Dr. Talita Jimenez MD Other Provider Active Sta rt: March 17, 2025 Dr. Jt Meadows MD Other Provider Active Star t: March 17, 2025 Dr. Hola Mullen MD Other Provider Active St art: March 17, 2025 Dr. Arturo Bradford MD Other Provider Active Star t: March 17, 2025 Dr. Jacky Chavez DO Other Provider Active St art: March 17, 2025 Dr. Juan Ramon Patterson MD Other Provider Active Start: March 17, 2025 Dr. Angelo Collier MD Other Provider Active St art: March 17, 2025 Dr. Brian Patton DO Other Provider Active Start: March 17, 2025 Dr. Todd Trammell MD Other Provider Active Star t: March 17, 2025 Dr. Chencho Baires MD Other Provider Active Sta rt: March 17, 2025 Team Status: Active Member Role/Relationship Status Dates Liudmila Olivera REMOTE ADVISOR, REMOTE ADVISOR-C Primary Care Provider Active Start: March 17, 2025 Dr. Wayne Waterman , Emergency Provider Activ e Start: March 17, 2025 Dr. Kel Murphy , DO Admit Provider Active Start: March 17, 2025 Dr. Kel Murphy DO Referring Provider Active Start: March 17, 2025 Dr. Kel Murphy , DO Other Provider Active Start: March 17, 2025 Dr. Sussy Argueta MD Other Provider Active Start: March 17, 2025 Dr. Raphael Aj MD Other Provider Active Start: March 17, 2025 Dr. Paul Bower MD Other Provider Active Star t: March 17, 2025 Dr. Jose F Chang DO Attending Provider Active S tart: March 17, 2025 Dr. Jose F Chang DO Other Provider Active Start : March 17, 2025 Dr. Evin Barbosa MD Other Provider Active Sta rt: March 17, 2025 Dr. Christofer Heck MD Other Provider Active St art: March 17, 2025 Dr. Michele Schroeder MD Other Provider Active S tart: March 17, 2025 Dr. Nicky Cassidy MD Other Provider Active Start: March 17, 2025 Dr. Jerson Cat MD Other Provider Active Start : March 17, 2025 Dr. Justen Aguilar MD Other Provider Active Start: March 17, 2025 Dr. Oscar Amador MD Other Provider Active Start : March 17, 2025 Dr. Esthela Linda MD Other Provider Active Star t: March 17, 2025 Dr. Shady Link MD Other Provider Active Sta rt: March 17, 2025 Dr. Talita Jimenez MD Other Provider Active Sta rt: March 17, 2025 Dr. Jt Meadows MD Other Provider Active Star t: March 17, 2025 Dr. Hola Mullen MD Other Provider Active St art: March 17, 2025 Dr. Arturo Bradford MD Other Provider Active Star t: March 17, 2025 Dr. Jacky Chavez DO Other Provider Active St art: March 17, 2025 Dr. Juan Ramon Patterson MD Other Provider Active Start: March 17, 2025 Dr. Angelo Collier MD Other Provider Active St art: March 17, 2025 Dr. Brian Patton DO Other Provider Active Start: March 17, 2025 Dr. Todd Trammell MD Other Provider Active Star t: March 17, 2025 Dr. Chencho Baires MD Other Provider Active Sta rt: March 17, 2025 Team Status: Active Member Role/Relationship Status Dates Liudmila Olivera NP, REMOTE ADVISOR-C Primary Care Provider Active Start: March 18, 2025 Dr. Wayne Klusty-Fina , DO Emergency Provider Activ e Start: March 18, 2025 Dr. Kel Murphy , DO Admit Provider Active Start: March 18, 2025 Dr. Kel Murphy , DO Referring Provider Active Start: March 18, 2025 Dr. Kel Murphy , DO Other Provider Active Start: March 18, 2025 Dr. Sussy Argueta MD Other Provider Active Start: March 18, 2025 Dr. Raphael Aj MD Other Provider Active Start: March 18, 2025 Dr. Paul Bower MD Other Provider Active Star t: March 18, 2025 Dr. Jose F Chang , DO Attending Provider Active S tart: March 18, 2025 Dr. Jose F Chang , DO Other Provider Active Start : March 18, 2025 Dr. Evin Barbosa MD Other Provider Active Sta rt: March 18, 2025 Dr. Christofer Heck MD Other Provider Active St art: March 18, 2025 Dr. Michele Schroeder MD Other Provider Active S tart: March 18, 2025 Dr. Nicky Cassidy MD Other Provider Active Start: March 18, 2025 Dr. Jerson Cat MD Other Provider Active Start : March 18, 2025 Dr. Justen Aguilar MD Other Provider Active Start: March 18, 2025 Dr. Oscar Amador MD Other Provider Active Start : March 18, 2025 Dr. Esthela Linda MD Other Provider Active Star t: March 18, 2025 Dr. Shady Link MD Other Provider Active Sta rt: March 18, 2025 Dr. Talita Jimenez MD Other Provider Active Sta rt: March 18, 2025 Dr. Jt Meadows MD Other Provider Active Star t: March 18, 2025 Dr. Hola Mullen MD Other Provider Active St art: March 18, 2025 Dr. Arturo Bradford MD Other Provider Active Star t: March 18, 2025 Dr. Jacky Chavez , DO Other Provider Active St art: March 18, 2025 Dr. Juan Ramon Patterson MD Other Provider Active Start: March 18, 2025 Dr. Angelo Collier MD Other Provider Active St art: March 18, 2025 Dr. Brian Patton , DO Other Provider Active Start: March 18, 2025 Dr. Todd Trammell MD Other Provider Active Star t: March 18, 2025 Dr. Chencho Baires MD Other Provider Active Sta rt: March 18, 2025 Team Status: Active Member Role/Relationship Status Dates Liudmila Olivera REMOTE ADVISOR, REMOTE ADVISOR-C Primary Care Provider Active Start: March 18, 2025 End: March 18, 2025 Dr. Franco Quach MD Attending Provider Active S tart: March 18, 2025 End: March 18, 2025 Dr. Franco Quach MD Referring Provider Active S tart: March 18, 2025 End: March 18, 2025 Team Status: Active Member Role/Relationship Status Dates Liudmila Olivera REMOTE ADVISOR, REMOTE ADVISOR-C Primary Care Provider Active Start: March 18, 2025 Dr. Wayne Waterman , DO Emergency Provider Activ e Start: March 18, 2025 Dr. Kel Murphy , DO Admit Provider Active Start: March 18, 2025 Dr. Kel Murphy , DO Attending Provider Active Start: March 18, 2025 Dr. Kel Murphy , DO Other Provider Active Start: March 18, 2025 Dr. Sussy Argueta MD Other Provider Active Start: March 18, 2025 Dr. Raphael Aj MD Other Provider Active Start: March 18, 2025 Dr. Paul Bower MD Other Provider Active Star t: March 18, 2025 Dr. Jose F Chang , Other Provider Active Start : March 18, 2025 Dr. Evin Barbosa MD Other Provider Active Sta rt: March 18, 2025 Dr. Christofer Heck MD Other Provider Active St art: March 18, 2025 Dr. Michele Schroeder MD Other Provider Active S tart: March 18, 2025 Dr. Nicky Cassidy MD Other Provider Active Start: March 18, 2025 Dr. Jerson Cat MD Other Provider Active Start : March 18, 2025 Dr. Justen Aguilar MD Other Provider Active Start: March 18, 2025 Dr. Oscar Amador MD Other Provider Active Start : March 18, 2025 Dr. Esthela Linda MD Other Provider Active Star t: March 18, 2025 Dr. Shady Link MD Other Provider Active Sta rt: March 18, 2025 Dr. Talita Jimenez MD Other Provider Active Sta rt: March 18, 2025 Dr. Jt Meadows MD Other Provider Active Star t: March 18, 2025 Dr. Hola Mullen MD Other Provider Active St art: March 18, 2025 Dr. Arturo Bradford MD Other Provider Active Star t: March 18, 2025 Dr. Jacky Chavez , DO Other Provider Active St art: March 18, 2025 Dr. Juan Ramon Patterson MD Other Provider Active Start: March 18, 2025 Dr. Angelo Collier MD Other Provider Active St art: March 18, 2025 Dr. Brian Patton , DO Other Provider Active Start: March 18, 2025 Dr. Todd Trammell MD Other Provider Active Star t: March 18, 2025 Dr. Chencho Baires MD Other Provider Active Sta rt: March 18, 2025 Team Status: Active Member Role/Relationship Status Dates Liudmila Olivera REMOTE ADVISOR, REMOTE ADVISOR-C Primary Care Provider Active Start: March 19, 2025 Dr. Wayne Waterman , DO Emergency Provider Activ e Start: March 19, 2025 Dr. Kel Murphy , DO Admit Provider Active Start: March 19, 2025 Dr. Kel Murphy , DO Referring Provider Active Start: March 19, 2025 Dr. Kel Murphy , DO Other Provider Active Start: March 19, 2025 Dr. Jose F Chang , DO Attending Provider Active S tart: March 19, 2025 Team Status: Active Member Role/Relationship Status Dates Liudmila Olivera REMOTE ADVISOR, REMOTE ADVISOR-C Primary Care Provider Active Start: March 19, 2025 Dr. Wayne Waterman , DO Emergency Provider Activ e Start: March 19, 2025 Dr. Kel Murphy , DO Admit Provider Active Start: March 19, 2025 Dr. Kel Murphy , DO Attending Provider Active Start: March 19, 2025 Dr. Kel Murphy , DO Other Provider Active Start: March 19, 2025 Team Status: Inactive Member Role/Relationship Status Dates Liudmila Olivera REMOTE ADVISOR, REMOTE ADVISOR-C Primary Care Provider Active Start: April 09, 2025 End: April 09, 2025 Liudmila Olivera REMOTE ADVISOR, REMOTE ADVISOR-C Referring Provider Active Start: April 09, 2025 End: April 09, 2025 Anita Neves , FLY-C Attending Provider Active Start: April 09, 2025 End: April 09, 2025 Team Status: Inactive Member Role/Relationship Status Dates Liudmila Olivera REMOTE ADVISOR, REMOTE ADVISOR-C Primary Care Provider Active Start: April 22, 2025 End: April 22, 2025 Anita Neves REMOTE ADVISOR-C Attending Provider Active Start: April 22, 2025 End: April 22, 2025 Anita Neves , REMOTE ADVISOR-C Referring Provider Active Start: April 22, 2025 End: April 22, 2025 Team Status: Active Member Role/Relationship Status Dates Liudmila Olivera REMOTE ADVISOR, REMOTE ADVISOR-C Primary Care Provider Active Start: April 22, 2025 Dr. Jose F Chang , Attending Provider Active S tart: April 22, 2025 Aniat Neves REMOTE ADVISOR-C Referring Provider Active Start: April 22, 2025 Team Status: Inactive Member Role/Relationship Status Dates Liumdila Olivera REMOTE ADVISOR, REMOTE ADVISOR-C Primary Care Provider Active Start: May 24, 2025 End: May 24, 2025 Anita Neves REMOTE ADVISOR-C Attending Provider Active Start: May 24, 2025 End: May 24, 2025 Anita Neves REMOTE ADVISOR-C Referring Provider Active Start: May 24, 2025 End: May 24, 2025 Team Status: Inactive Member Role/Relationship Status Dates Liudmila Olivera REMOTE ADVISOR, REMOTE ADVISOR-C Primary Care Provider Active Start: June 02, 2025 End: June 02, 2025 Liudmila Olivera NP, REMOTE ADVISOR-C Referring Provider Active Start: June 02, 2025 End: June 02, 2025 Anita Neves REMOTE ADVISOR-C Attending Provider Active Start: June 02, 2025 End: June 02, 2025 Children Counselor Relationship Specialty Start Date End Date Liudmila Olivera APRN.[employer]ST FOOD CASHIER [address] [place] [id number] PCP - General Family Medicine 12/27/23 Children Counselor Relationship Specialty Start Date End Date Liudmila Olivera APRN.FAST FOOD CASHIER [address] [place] [id number] PCP - General Family Medicine 12/27/23 Children Counselor Relationship Specialty Start Date End Date Liudmila Olivera APRN.FAST FOOD CASHIER [address] [place] [address] PCP - General Family Medicine 12/27/23 Children Counselor Relationship Specialty Start Date End Date Liudmila Olivera, SPACE ENGINEER.FAST FOOD CASHIER [address] [place] [address] PCP - General Family Medicine 12/27/23 Children Counselor Relationship Specialty Start Date End Date Liudmila Olivera, SPACE ENGINEER.FAST FOOD CASHIER [address] [place] [address] PCP - General Family Medicine 12/27/23 Children Counselor Relationship Specialty Start Date End Date Liudmila Olivera, SPACE ENGINEER.FAST FOOD CASHIER [address] [place] [address] PCP - General Family Medicine 12/27/23 Children Counselor Relationship Specialty Start Date End Date Liudmila Olivera, SPACE ENGINEER.FAST FOOD CASHIER [address] [place] [address] PCP - General Family Medicine 12/27/23 Goals (unrecognized section and content) Goals may be documented in a n alternate sectionGoals may be documented in an alternate sectionGoals may be documented in an alternate sectionGoals may be documented in an alternate sectionGoals may be documented in an alternate section FOR RECORDS PERTAINING TO PATIENTS WHO ARE OR HAVE BEEN ENROLLED IN A CHEMICAL DEPENDENCY/SUBSTANCEABUSE PROGRAM, SOME INFORMATION MAY BE OMITTED. This clinical summary was aggregated from multiple sources. Caution should be exercised in using it in the provision of clinical care. This summary normalizes information from multiple sources, and as a consequence, information in this document may materially change the coding, format and clinical context of patient data. In addition, data may be omitted in some cases. CLINICAL DECISIONS SHOULD BE BASED ON THE PRIMARY CLINICAL RECORDS. [facility] [employer] [facility]. provides no warranty or guarantee of the accuracy or completeness of information in this document.
== END | disposition home or self-care (01) ==
LOC: CT 08:49
PROVIDERS: PCP Nurse Practitioner Family; Referring Provider Nurse Practitioner Acute Care; Visit Provider Nurse Practitioner Acute Care
DX: Z12.2 Encounter for screening for malignant neoplasm of respiratory organs (principal); F17.210 Nicotine dependence, cigarettes, uncomplicated
CPT/HCPCS: 71271

== ENCOUNTER → 2025-10-26 | Outpatient (CLI) | payer MEDICARE, MEDICAID, SELFPAY ==
--- NOTE | 2025-10-26 10:30 | PET_ITS ---
PROCEDURE: PET/CT TUMOR BASE -THIGH INIT 10/26/2025 REASON FOR EXAM: 60 y/o F with PULMONARY NODULE TECHNIQUE: Procedure Code: PETPTCTINIT Modality: PT Procedure: PET/CT TUMOR BASE -THIGH INIT Following the intravenous administration of radionucleotide, image acquisition on a dedicated PET/CT unit was performed at one hour post injection. A preliminary CT study encompassing the Skull base, neck, chest, abdomen, pelvis, and proximal thighs was performed for purposes of attenuation correction and anatomic localization. The proximal thighs were also included. The patient's blood glucose level was 130 mg/dL (allowable range: 50-180 mg/dL). RADIOPHARMACEUTICAL: 14.45 mCi 18F-FDG (Fluorodeoxyglucose F18) IV was injected into he patient. RADIATION DOSE SUMMARY: Effective Dose: Approximately 7 mSv for a standard whole-body PET scan Organ Doses: Varies by organ, with higher doses typically to the bladder, liver, and brain COMPARISON: COMPARISON FROM CT, PET OR OTHER PERTINENT EXAMS: Multiple previous CTs of the chest including the most recent CT lung cancer screening dated October 09, 2025.. FINDINGS: Physiologic uptake: There may be expected metabolic uptake within the brain, tongue and floor of the mouth and larynx/vocal cords, heart, yuniel, liver and spleen, system, and GI tract and symmetric muscle uptake. FDG AVID AND NON-AVID LESIONS. Reported avid SUV values (g/mL*) are maximum SUV. Mediastinal background SUVmax: 3.76 Hepatic background SUVmax: 3.67 Head and brain: PET findings: Imaged age-appropriate brain. CT findings: no focal abnormal metabolic activity. Neck: Focal area of hypermetabolic uptake seen within the parotid glands bilaterally. There are 2 foci noted in the right parotid gland with the largest nodule measuring 11.7 mm (image 33). The largest nodule in the left lobe measured 11 mm. These SUV max values are 20 and 17 respectively. No additional enlarged lymph node or uptake seen within the remainder of the neck. Patient is status post cervical fusion. Chest: Severe emphysema with numerous bulla in the upper lobes. Bilateral apical parenchymal scarring. Linear calcified area of scarring in the left upper lobe measuring 2 x 13 cm similar to previous exam demonstrates no affinity for FDG. There is an ill-defined nodular opacity in the right upper lobe measuring 15 x 10 mm (image 102 series 202 which is less prominent than on previous exam and demonstrates an SUV max of 3. No mediastinal uptake. No lymphadenopathy. Atherosclerosis of the aorta. There is dilatation of the ascending aorta measuring 42 mm. The descending aorta is of normal caliber. There is no pericardial effusion. Abdomen: CT findings: Hepatomegaly with diffuse hepatic steatosis. No liver mass. No intrahepatic or extrahepatic ductal dilatation. Gallbladder negative. Adrenal glands negative without mass. Kidneys negative without mass. Spleen and pancreas negative. Remainder of the abdomen is unremarkable. PET findings: No abnormal metabolic activity. Pelvis: CT findings: No inguinal or iliac adenopathy. No focal mass. PET findings: No abnormal metabolic activity. Bones: CT findings: Age-appropriate degenerative changes of the spine. Age-appropriate degenerative changes of the shoulders and hips. Negative for lytic or sclerotic lesions. PET findings: No focal abnormal metabolic activity. PET/PET/CT Tumor Base -Thigh Init IMPRESSION: FDG avid- 1. Bilateral intraparotid lymphadenopathy with hypermetabolic uptake concerning for neoplasm. 2. Mild hypermetabolic uptake within irregular airspace nodule in the right upp er lobe. This appears decreased in size when compared to the most recent CT of the chest. The findings could still reflect an infectious or inflammatory process. A short-term interval follow-up CT in 4-6 weeks is recommended. Alternatively a CT-guided biopsy would prove more definitive. Suspicious- No significant suspicious abnormalities. Non-FDG avid- No non-FDG avid cysts. Other: Hepatomegaly with diffuse hepatic steatosis. Reading Location: [id number]
== END | disposition home or self-care (01) ==
PROVIDERS: PCP Nurse Practitioner Family; Referring Provider Nurse Practitioner Family; Visit Provider Nurse Practitioner Family
DX: R91.1 Solitary pulmonary nodule (principal)
CPT/HCPCS: 78815; A9552